=== PATIENT | male | born 1965 | race Caucasian/White ===

== ENCOUNTER 2017-07-08 04:45 | Inpatient (IN) | payer BC ==
[~2017-07-08] VITALS: Ht 182.9 cm; Wt 145.6 kg
[~2017-07-08 04:45] MED LIST: AMLODIPINE BESYL5 MG PO; ASPIRIN81 M1 PO; BYSTOLIC10 MG PO; DIOVAN80 MG PO; INVOKANA PO; LANSOPRAZOLE30 MG PO; LASIX40 MG PO; LIPITOR20 MG PO; MELOXICAM15 MG PO; METFORMIN HCL500 MG PO; TRIAMTERENE-HC1 EAC2 PO
[2017-07-08 05:23] LABS: BILIRUBIN,URINE NEGATIVE (NEGATIVE); CLARITY,URINE CLEAR (CLEAR); COLOR,URINE YELLOW (YELLOW); KETONES,URINE NEGATIVE (NEGATIVE); LEUKOCYTE ESTERASE ,URINE NEGATIVE (NEGATIVE); NITRITE,URINE NEGATIVE (NEGATIVE); PROTEIN,URINE DIPSTICK 1+ (NEGATIVE); URINE UROBILINOGEN 0.2 mg/dL (0.2 - 1)
[2017-07-08] MEDS ORDERED: SODIUM CHLORIDE 0.9% 1000ML 1,000 ML IV STA (05:36)
[2017-07-08] MEDS ORDERED: HYDROMORPHONE 1MG/1ML INJ IV STA (05:36)
[2017-07-08] MEDS ORDERED: KETOROLAC TROMETHAMINE 30 MG/ML VIAL IV STA (05:36)
[2017-07-08] MEDS ORDERED: ONDANSETRON HCL INJ 2 MG/ML VIAL IV STA (05:36)
[2017-07-08 05:43] LABS: BACTERIA,URINE RARE /HPF; EPITHELIAL CELLS,URINE RARE /LPF; RBC,URINE 21-50 /HPF (0-5)
--- NOTE | 2017-07-08 05:48 | Diagnostic Imaging Report ---
EXAM: CT ABDOMEN AND PELVIS without IV CONTRAST INDICATION: Abdominal pain, left flank pain COMPARISON: CT of the abdomen and pelvis without IV contrast January 2009 TECHNIQUE: The abdomen and pelvis were scanned using a multidetector helical scanner. Coronal and sagittal reformations were obtained. Renal stone protocol performed. IV Contrast: None Oral Contrast: None CTDIvol has been reviewed. It is below the limits set by the Radiation Protocol Committee (RPC). FINDINGS: LOWER THORAX: No consolidations LIVER: No masses BILIARY: Cholecystectomy. No ductal dilation. SPLEEN: No masses PANCREAS: No masses ADRENALS: No nodules RIGHT KIDNEY: There are 4 stones throughout the right kidney, the largest is in the inferior pole measuring 8 mm. No hydronephrosis. No ureteral stones. LEFT KIDNEY: There is a 9 mm left proximal ureteral stone at the L3/L4 level resulting in moderate hydroureteronephrosis and significant perinephric fat stranding. Multiple stones in the inferior pole measuring up to 1.5 cm in conglomerate. GI TRACT: No wall thickening or obstruction. VESSELS: Unremarkable PERITONEUM/RETROPERITONEUM: No free air or fluid LYMPH NODES: No lymphadenopathy REPRODUCTIVE ORGANS: Normal BLADDER: Normal SOFT TISSUES: Normal BONES: Advanced degenerative disc L3/L4. IMPRESSION: There is a 9 mm stone in the proximal left ureter resulting in moderate hydroureteronephrosis and marked perinephric fat stranding. Bilateral nephrolithiasis, decreased on the right and increased on the left compared to 2008. Signed by: Dr. Lexy Cooney M.D. on 07/08/2017 5:45 AM
[2017-07-08 06:33] LABS: BASOPHILS % 0.3 % (0.0-1.0); EOSINOPHILS # (AUTO) 0.2 (0.0-0.4); HEMATOCRIT 41.5 % (38.2-49.6); HEMOGLOBIN 13.7 g/dL (14.0-18.0); LYMPHOCYTES # (AUTO) 1.4 (1.0-3.2); LYMPHOCYTES % 15.4 % (18.0-39.1); MEAN CORPUSCULAR HEMOGLOBIN 27.8 pg (28-32); MEAN CORPUSCULAR VOLUME 84.3 fL (81-99); MONOCYTES % 10.9 % (4.4-11.3); NEUTROPHILS # (AUTO) 6.4 (2.1-6.9); NEUTROPHILS % 71.1 % (38.7-80.0); PLATELET COUNT 219 x10e3/uL (140-360); RED BLOOD COUNT 4.92 x10e6/uL (4.3-5.7); RED CELL DISTRIBUTION WIDTH 14.9 % (11.7-14.4)
[2017-07-08] MEDS ORDERED: ONDANSETRON HCL 4 MG ORAL DISINTEGRATING TAB ONE (06:36)
[2017-07-08 06:44] LABS: INR 1.07; PROTHROMBIN TIME 13.1 seconds (11.9-14.5)
[2017-07-08 06:45] LABS: PARTIAL THROMBOPLASTIN TIME 31.3 seconds (23.8-35.5)
[2017-07-08] MEDS ORDERED: PROMETHAZINE 25MG/ NS 50ML (IV) IV ONE (06:45)
[2017-07-08] MEDS ORDERED: ONDANSETRON HCL 4 MG ORAL DISINTEGRATING TAB PO STA (06:47)
[2017-07-08 06:56] LABS: ALBUMIN 3.8 g/dL (3.5-5.0); ALBUMIN/GLOBULIN RATIO 1.1 (0.8-2.0); ANION GAP 14.7 mmol/L (8-16); CALCIUM 9.5 mg/dL (8.4-10.2); CREATININE, SERUM 1.36 mg/dL (0.72-1.25); POTASSIUM 3.7 mmol/L (3.5-5.1)
[2017-07-08] MEDS ORDERED: ONDANSETRON HCL INJ 2 MG/ML VIAL IV PRN (07:00)
[2017-07-08] MEDS ORDERED: DAPAGLIFLOZIN PO (07:17)
[2017-07-08] MEDS ORDERED: PANTOPRAZOLE SO40 MG PO (07:17)
--- OUTSIDE RECORDS SUMMARY | 2017-07-08 07:23 | XMS REPORT ---
Author Author [facility] Address Unknown Phone Unavailable Care Team Providers Care Commercial Sales Director Name Role Phone TRE SALAS Unavailable Unavailable Problems This patient has no known problems. Allergies, Adverse Reactions, Alerts This patient has no known allergies or adverse reactions. Medications This patient has no known medications. Results Test Description Test Time Test Comments Text Results Atomic Results Result Comments CT ABDOMEN/PELVIS WO [place] [address] Patient Name: ZAYNAB FLORES MR #: [id number] : 1965 Age/Sex: 52/M Req #: [id number] Adm Physician: Ordered by: TRE SALAS MD Report #: [id number] Location: ER Room/Bed: Procedure: 0501- 0001 CT/CT ABDOMEN/PELVIS WO Exam Date: Exam Time: REPORT STATUS: Signed EXAM: CT ABDOMEN AND PELVIS without IV CONTRAST INDICATION: Abdominal pain, left flank pain COMPARISON: CT of the abdomen and pelvis without IV contrast January 2009 TECHNIQUE: The abdomen and pelvis were scanned using a multidetector helical scanner. Coronal and sagittal reformations were obtained. Renal stone protocol performed. IV Contrast: None Oral Contrast: None CTDIvol has been reviewed. It is below the limits set by the Radiation Protocol Committee (RPC) . FINDINGS: LOWER THORAX: No consolidations LIVER: No masses BILIARY: Cholecystectomy. No ductal dilation. SPLEEN: No masses PANCREAS : No masses ADRENALS: No nodules RIGHT KIDNEY: There are 4 stones throughout the right kidney, the largest is in the inferior pole measuring 8 mm. No hydronephrosis. No ureteral stones. LEFT KIDNEY: There is a 9 mm left proximal ureteral stone at the L3/L4 level resulting in moderate hydroureteronephrosis and significant perinephric fat stranding. Multiple stones in the inferior pole measuring up to 1.5 cm in conglomerate. GI TRACT: No wall thickening or obstruction. VESSELS: Unremarkable PERITONEUM/RETROPERITONEUM: No free air or fluid LYMPH NODES: No lymphadenopathy REPRODUCTIVE ORGANS: Normal BLADDER: Normal SOFT TISSUES: Normal BONES: Advanced degenerative disc L3/L4. IMPRESSION: There is a 9 mm stone in the proximal left ureter resulting in moderate hydroureteronephrosis and marked perinephric fat stranding. Bilateral nephrolithiasis, decreased on the right and increased on the left compared to 2009. Signed by: Dr. Brissa Hart M.D. on 07/08/2017 5:45 AM Dictated By: BRISSA HART MD [id number] COPY TO: TRE SALAS MD
[2017-07-08] MEDS: SODIUM CHLORIDE 0.9% 1000ML 1,000 ML IV SCH ×3 (07:45→19:41)
--- NOTE | 2017-07-08 08:33 | Consultation ---
DATE OF CONSULTATION: July 08, 2017 UROLOGY CONSULTATION Consultation was called by the emergency room. CHIEF COMPLAINT/REASON FOR CONSULTATION: Stones. HISTORY OF PRESENT ILLNESS: Juanjose Salmeron is a 52-year-old male who was in his usual state of health until 1 day prior to admission when he began experiencing acute onset of sharp left-sided flank pain. It was severe. It was acute in onset, 10/10. It did not radiate. It is not exacerbated nor relieved by anything. He denied dysuria. He denied gross hematuria. He states this is exactly the same as his numerous previous kidney stones. PAST MEDICAL HISTORY: The patient has had an extensive long kidney stone history. Has last urologist seen was Dr. Lorenzo Nicolas At [facility] approximately 6-7 years ago where he had to undergo stent placement, ureteroscopy, laser lithotripsies, as well as shock wave lithotripsy. PAST SURGICAL HISTORY: Also notable for cholecystectomy, obesity, hypertension. MEDICATIONS: Please see MAR. ALLERGIES: NKDA. SOCIAL HISTORY: Denied smoking or drinking. FAMILY HISTORY: Denied urologic stones or malignancies. REVIEW OF SYSTEMS: Noncontributory for all 12 systems. PHYSICAL EXAMINATION GENERAL: Mr. Salmeron is a pleasant male currently in no acute distress. VITALS: Currently, he is afebrile with stable vital signs. HEENT: Sclerae are anicteric. NECK: Supple. BACK: Without costovertebral angle tenderness. ABDOMEN: Soft. It is obese. It is nondistended. No palpable mass. No palpable hernias. No palpable inguinal lymphadenopathy. : Normal external male genitalia. EXTREMITIES: Without edema in the lower extremities. PSYCH: Appropriate mood. SKIN: Intact. Normal color. PERTINENT LABORATORY DATA: CT scan revealing multiple stones in the right kidney, largest 8 mm. Multiple stones in the left kidney. Total cluster 1.5 cm. There is a 9 mm proximal left ureteral calculus with proximal hydronephrosis. Hemoglobin 13.7, hematocrit 41, platelet count 219,000, and white blood cell count 9000. Sodium 139, potassium 3.7, chloride 105, bicarb 27, BUN 24, creatinine 1.36, glucose 163. Urinalysis with 21-50 reds and 6-10 whites. IMPRESSION 1. Bilateral renal calculi. 2. Large left ureteral calculi. 3. Left hydronephrosis. 4. Acute versus chronic renal failure. 5. Likely diabetes. 6. Question of urinary tract infection. 7. Microscopic hematuria. 8. Renal colic. PLAN: The patient has been begun on broad-spectrum antibiotics. We will perform this as long as the patient remains afebrile. Will employ a very brief trial of passage. The patient will need stenting with outpatient followup in a staged fashion of at least 4 procedures for his multiple bilateral stones. Job#: [id number] RI
[2017-07-08 10:45] VITALS: BP 137/71
[2017-07-08 11:52] VITALS: BP 137/71
[2017-07-08] MEDS ORDERED: MECLIZINE HCL12.5 MG PO (12:08)
[2017-07-08] MEDS: LEVOFLOXACIN 500MG/D5W 100ML 100 ML IV SCH (12:34)
[2017-07-08 12:35] VITALS: BP 137/71
[2017-07-08] MEDS: HYDROMORPHONE 1MG/1ML INJ IV PRN ×2 (13:52→19:41)
[2017-07-08 17:29] VITALS: BP 140/88
[2017-07-08] MEDS: ONDANSETRON HCL 4 MG ORAL DISINTEGRATING TAB PO PRN (19:41)
[2017-07-08 20:00] VITALS: BP 157/84
[2017-07-08 21:15] VITALS: BP 157/84
[2017-07-08] MEDS ORDERED: MECLIZINE HCL 12.5 MG TAB PO PRN (21:15)
--- NOTE | 2017-07-08 21:32 | Consultation ---
DATE OF CONSULTATION: No dictation, length 00:08. Job#: [id number] BENTLEY
--- NOTE | 2017-07-08 21:44 | History and Physical ---
CHIEF COMPLAINT: Abdominal pain. HISTORY OF PRESENT ILLNESS: Mr. Salmeron is a 52-year-old male, who presented to the emergency room with abdominal pain for 1 day. Patient has previous history of kidney stones and this felt like the same pain. It was sharp on the left flank. It was severe and started early in the morning and progressed. It was not radiating. He was not able to get relief, so he came to the emergency room. He denies any hematuria and denies any dysuria. He denies any chest pain, nausea, vomiting, diarrhea or focal weakness. REVIEW OF SYSTEMS GENERAL: Denies any fever or chills. HEAD: Denies any head trauma. ENT: Denies any earache. CVS: Denies any chest pain. RESPIRATORY: Shortness of breath. GI: Denies any nausea or vomiting. Rest of the review of systems is as in HPI. PAST MEDICAL HISTORY: History of kidney stones in the past, had ureteroscopy, lithotripsy and stent placement in the past; borderline diabetes; Meniere's disease. PAST SURGICAL HISTORY: Total knee replacement bilaterally, cholecystectomy, hernia repair, C6-C7 fixation. FAMILY AND SOCIAL HISTORY: He does not smoke, does not drink. 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 Lives with his . PHYSICAL EXAM VITAL SIGNS: Temperature 96.8, pulse of 74, blood pressure 140/80, respiratory rate of 18, O2 sat 98%. HEENT: Head atraumatic, normocephalic. Pupils reactive. NECK: Supple. CHEST: Clear to auscultation bilaterally. No wheezing. HEART: S1, S2 audible. ABDOMEN: Soft, nontender, nondistended. Bowel sounds audible. No hepatosplenomegaly. EXTREMITIES: No clubbing, cyanosis or edema. NEUROLOGIC: Awake and alert. LABS: Sodium 139, potassium 3.7, BUN 24, creatinine 1.36. White count of 9000, hemoglobin 13, platelets 219,000. ASSESSMENT/PLAN: Mr. Salmeron is a 52-year-old male who presented with flank pain. Patient underwent computed tomography of the abdomen and pelvis in the emergency room which showed 9-mm stone in the proximal left ureter. CURRENT PROBLEMS 1. Nephrolithiasis. 2. Borderline diabetes. 3. Morbid obesity. 4. History of multiple kidney stones in the past. PLAN 1. Urology consult has been called. Dr. Quigley is evaluating the patient. 2. IV Levaquin. 3. IV Dilaudid for pain control. 4. Continue IV hydration for now. Job#: [id number] BENTLEY
[2017-07-09] VITALS (7 sets, daily range): BP systolic 143–173; BP diastolic 67–91
[2017-07-09] MEDS: SODIUM CHLORIDE 0.9% 1000ML 1,000 ML IV SCH ×3 (04:00→21:00)
[2017-07-09 06:38] LABS: BASOPHILS % 0.1 % (0.0-1.0); EOSINOPHILS # (AUTO) 0.2 (0.0-0.4); EOSINOPHILS % 2.3 % (0.0-6.0); HEMATOCRIT 38.4 % (38.2-49.6); HEMOGLOBIN 12.5 g/dL (14.0-18.0); LYMPHOCYTES # (AUTO) 0.9 (1.0-3.2); LYMPHOCYTES % 11.8 % (18.0-39.1); MEAN CORPUSCULAR HEMOGLOBIN 27.7 pg (28-32); MEAN CORPUSCULAR HGB CONC 32.6 g/dL (31-35); MEAN CORPUSCULAR VOLUME 85.1 fL (81-99); MONOCYTES # (AUTO) 0.9 (0.2-0.8); NEUTROPHILS # (AUTO) 5.5 (2.1-6.9); NEUTROPHILS % 73.5 % (38.7-80.0); PLATELET COUNT 192 x10e3/uL (140-360); RED BLOOD COUNT 4.51 x10e6/uL (4.3-5.7)
[2017-07-09 07:14] LABS: ALBUMIN 3.3 g/dL (3.5-5.0); ALBUMIN/GLOBULIN RATIO 1.1 (0.8-2.0); ANION GAP 12.7 mmol/L (8-16); CALCIUM 8.5 mg/dL (8.4-10.2); CREATININE, SERUM 1.46 mg/dL (0.72-1.25); POTASSIUM 3.7 mmol/L (3.5-5.1)
[2017-07-09] MEDS: NEBIVOLOL 10 MG TAB PO SCH (08:28)
[2017-07-09] MEDS: PANTOPRAZOLE SOD 40 MG TABEC PO SCH (08:28)
[2017-07-09] MEDS: AMLODIPINE BESYLATE 5 MG TAB PO SCH (08:28)
[2017-07-09] MEDS: LEVOFLOXACIN 500MG/D5W 100ML 100 ML IV SCH (11:30)
--- NOTE | 2017-07-09 17:24 | Diagnostic Imaging Report ---
PROCEDURE:X-RAY ABDOMEN - KUB COMPARISON:[facility], CT, CT ABDOMEN AND PELVIS WITHOUT CONTRAST, 01/19/2009, 15:21. INDICATIONS:KIDNEY STONES FINDINGS: Bowel gas pattern: Unremarkable. There are mildly distended small bowel loops measuring up to 3.4 cm in diameter. No dilated large bowel. No pneumatosis. Calcifications: At least 3 calcifications over the right renal shadow measure up to 8 mm. Cluster calcifications in the lower pole of the left kidney measure up to 8 mm. A potential calcification over the left psoas measures 10 mm. Surgical clips in the posterior right pelvis are stable. No calcifications in the pelvis. Bones: Levoscoliosis of the lumbar spine is similar with superimposed degenerative changes. CONCLUSION: Bilateral intrarenal calculi. A calculus in the left ureter cannot be excluded. Dictated by: Dharmesh Holt M.D. on 07/09/2017 at 17:25 Electronically approved by: Dharmesh Holt M.D. on 07/09/2017 at 17:25
[2017-07-09] MEDS: ACETAMINOPHEN 325 MG TAB PO PRN (18:12)
[2017-07-09] MEDS: ONDANSETRON HCL 4 MG ORAL DISINTEGRATING TAB PO PRN (18:12)
[2017-07-09] MEDS ORDERED: HYDROMORPHONE 1MG/1ML INJ IV PRN (20:30)
[2017-07-09] MEDS ORDERED: METFORMIN HCL 500 MG TAB PO SCH (21:00)
[2017-07-09] MEDS ORDERED: ATORVASTATIN 20 MG TAB PO SCH (21:00)
[2017-07-09] MEDS ORDERED: HYDROMORPHONE 2MG/ML INJ IV PRN (21:00)
[2017-07-10] VITALS: BP 161/73
[2017-07-10 04:00] VITALS: BP 147/67
[2017-07-10] MEDS ORDERED: IOPAMIDOL 610MG/1ML 300 MG/ML VIAL IV ONE (06:22)
[2017-07-10 08:20] VITALS: BP 162/77
[2017-07-10] MEDS: PANTOPRAZOLE SOD 40 MG TABEC PO SCH (08:20)
[2017-07-10] MEDS: NEBIVOLOL 10 MG TAB PO SCH (08:20)
[2017-07-10] MEDS: AMLODIPINE BESYLATE 5 MG TAB PO SCH (08:20)
[2017-07-10] MEDS: ACETAMINOPHEN 325 MG TAB PO PRN (08:20)
[2017-07-10 08:24] VITALS: BP 162/77
--- NOTE | 2017-07-10 08:32 | Operative Report ---
DATE OF PROCEDURE: July 10, 2017 PREOPERATIVE DIAGNOSES 1. Left hydronephrosis. 2. Urinary tract infections. 3. Microscopic hematuria. POSTOPERATIVE DIAGNOSES 1. Left hydronephrosis. 2. Urinary tract infections. 3. Microscopic hematuria. PROCEDURES 1. Cystourethroscopy with insertion of left indwelling ureteral stent (entirely separate procedure for the diagnosis of hydronephrosis). 2. Cystourethroscopy with right ureteral catheterization and right retrograde pyelogram (separate procedure for the microscopic hematuria). 3. Supervision of fluoroscopy. 4. Interpretation of retrograde ureteropyelography. ANESTHESIA: General. ESTIMATED BLOOD LOSS: Minimal. COMPLICATIONS: None. INDICATIONS: Mr. Salmeron is a very pleasant 52-year-old male with a history of a very large obstructing proximal left ureteral stone. He has failed a trial of passage. He and I had a long discussion about alternatives, risks and benefits including doing nothing, shock wave lithotripsy, which cannot be performed today currently during the infection, stent placement, and nephrostomy. He voiced understanding of the options, alternatives, risks, and benefits and elected to proceed with a stent. He voiced explicit understanding that the stent is a temporary indwelling device, and it must be removed. Failure to do so could lead to encrustation, infection, inflammation, loss of the kidney, and even . He elects to proceed. PROCEDURE IN DETAIL: After informed consent was obtained, the patient was taken to the operating room and placed on the operating table and underwent general anesthesia by the department of anesthesia. He was prepped and draped in the standard fashion for cystoscopy. A 22.5-Albanian cystoscope was inserted per urethra. It was noted to pass normal. No tumors. No stones. Both ureteral orifices were within normal anatomic location and position. Bilateral retrograde pyelograms were performed with a 5-Albanian open-ended catheter. The right was normal. The left revealed a very large approximately 9 x 9 mm proximal ureteral calculus with proximal hydronephrosis. With a moderate degree of difficulty, a guidewire was inserted proximal to this. A ureteral stent was deployed with the coil in the renal pelvis and a coil in the bladder. The patient's bladder was drained. He was awakened from anesthesia and transported to the recovery room in excellent condition. SUPERVISION OF FLUOROSCOPY, INTERPRETATION OF RETROGRADE URETERAL PYELOGRAPHY: I was present throughout the entire procedure and I supervised the use of fluoroscopy as no radiologist was present. Attention was turned toward the left and right ureteral orifices, catheterized with a 5-Albanian open-ended catheter. Retrograde pyelogram was performed revealing on the right a delicate ureter and delicate pelviceal systems. On the left, a 9 x 9 mm proximal filling defect with multiple stones in the kidney and bowel gas. IMPRESSION 1. Normal right retrograde pyelogram. 2. Left proximal ureteral calculi, 9 x 9 mm. 3. Multiple left renal calculi, stent in good position. Job#: [id number] RI cc:KARTHIKEYAN TAYLOR DO
[2017-07-10] MEDS: SODIUM CHLORIDE 0.9% 1000ML 1,000 ML IV SCH (09:11)
--- NOTE | 2017-07-10 10:56 | Discharge Summary ---
FINAL DIAGNOSES 1. Nephrolithiasis and left hydronephrosis, status post cystourethroscopy and insertion of indwelling ureteral stent. 2. Morbid obesity. 3. Borderline diabetes. 4. Hypertension. 5. Meniere disease. ADMISSION HISTORY AND HOSPITAL COURSE: Mr. Salmeron is a 52-year-old male who presented with 1-day history of abdominal pain. He was found to have nephrolithiasis and hydronephrosis. Urology was consulted. The patient underwent cystourethroscopy and stent placement. The patient will be discharged home if okay with urology. DISCHARGE MEDICATIONS: List reviewed. GISELA CARABALLO MD Job#: [id number]
[2017-07-10] MEDS ORDERED: LEVAQUIN500 MG PO (11:19)
[2017-07-10] MEDS ORDERED: FENTANYL CITRATE/PF 100MCG/2 ML INJ ONE (18:38)
[2017-07-10] MEDS ORDERED: MIDAZOLAM HCL 2 MG/2 ML VIAL ONE (18:38)
[2017-07-10] MEDS ORDERED: DEXAMETHASONE SOD PHOS INJ 4 MG/ML VIAL ONE (19:25)
[2017-07-10] MEDS ORDERED: ONDANSETRON HCL INJ 2 MG/ML VIAL ONE (19:25)
[2017-07-10] MEDS ORDERED: SEVOFLURANE INHAL SOLN 250 ML PEN BTL ONE (19:25)
[2017-07-10] MEDS ORDERED: LIDOCAINE HCL 2% LOCAL INJ 5 ML SDV VIAL INJ ONE (19:25)
[2017-07-10] MEDS ORDERED: PROPOFOL IV EMULSION 10 MG/ML 20 ML VIAL ONE (19:25)
== END 2017-07-10 12:02 | disposition home or self-care (01) | DRG 660 ==
LOC: ER 04:45 → ERHOLD 07:19 → IMCU 10:24 → OBSVTOIN 07-09 12:16 → MED/SURG 07-09 17:56
PROVIDERS: ADMIT Internal Medicine; ATTEND Internal Medicine
PROC: 0T768ZZ Dilation of Right Ureter, Via Natural or Artificial Opening Endoscopic (ICD-10-PCS; 2017-07-10)
PROC: BT141ZZ Fluoroscopy of Kidneys, Ureters and Bladder using Low Osmolar Contrast (ICD-10-PCS; 2017-07-10)
PROC: 0T778DZ Dilation of Left Ureter with Intraluminal Device, Via Natural or Artificial Opening Endoscopic (ICD-10-PCS; principal; 2017-07-10 07:00)
DX: N13.6 Pyonephrosis (principal); Z68.41 Body mass index [BMI] 40.0-44.9, adult; N20.2 Calculus of kidney with calculus of ureter; E66.01 Morbid (severe) obesity due to excess calories; E11.9 Type 2 diabetes mellitus without complications; N23 Unspecified renal colic; Z87.442 Personal history of urinary calculi; N17.9 Acute kidney failure, unspecified; N39.0 Urinary tract infection, site not specified; R31.29 Other microscopic hematuria; D64.9 Anemia, unspecified
CPT/HCPCS: 36415; 74018; 74176; 74420; 80053; 81001; 82150; 82948; 83690; 85025; 85610; 85730; 99284; G0378; J1100; J1170; J1885; J1956; J2001; J2250; J2405; J7030

== ENCOUNTER → 2017-09-02 | Day surgery (SDC) | payer BC ==
[2017-09-01 10:26] LABS: ANION GAP 12.2 mmol/L (8-16); BLOOD UREA NITROGEN 20 mg/dL (7-26); BUN/CREATININE RATIO 19 (6-25); CALCIUM 9.9 mg/dL (8.4-10.2); CARBON DIOXIDE 27 mmol/L (22-29); CHLORIDE 104 mmol/L (98-107); CREATININE, SERUM 1.08 mg/dL (0.72-1.25); EST GLOMERULAR FILTRATION RATE > 60 ML/MIN (60-); GLUCOSE 150 mg/dL (74-118); POTASSIUM 4.2 mmol/L (3.5-5.1); SODIUM 139 mmol/L (136-145)
[~2017-09-02] MED LIST changes: +DAPAGLIFLOZIN PO; +DEXAMETHASONE SOD PHOS INJ 4 MG/ML VIAL ONE; +FENTANYL CITRATE/PF 100MCG/2 ML INJ ONE; +IOPAMIDOL 610MG/1ML 300 MG/ML VIAL IV ONE; +LEVAQUIN500 MG PO; +LEVOFLOXACIN 500MG/D5W 100ML 100 ML IV ONE; +LIDOCAINE HCL 2% LOCAL INJ 5 ML SDV VIAL INJ ONE; +MECLIZINE HCL12.5 MG PO; +MIDAZOLAM HCL 2 MG/2 ML VIAL ONE; +ONDANSETRON HCL INJ 2 MG/ML VIAL ONE; +PANTOPRAZOLE SO40 MG PO; +PROPOFOL IV EMULSION 10 MG/ML 20 ML VIAL ONE; +SEVOFLURANE INHAL SOLN 250 ML PEN BTL ONE
--- NOTE | 2017-09-02 06:40 | Diagnostic Imaging Report ---
EXAM: ABDOMEN-1VIEW (KUB) DATE: 09/02/2017 6:05 AM Time stamp on exam: 0604 exam INDICATION: Renal stones COMPARISON: July 09, 2017 FINDINGS: LINES/TUBES: Interval placement of double-J ureteral stent along the left ureter BOWEL PATTERN: No evidence for obstruction. SOFT TISSUES: Cholecystectomy clips are present. Multiple bilateral nephrolithiasis overlying the interpolar and inferior renal collecting system of the right kidney measuring, the largest 1 cm in largest dimension Multiple calcific densities overlying the inferior left renal shadow overlying the inferior renal collecting system, the largest measuring 9 mm in diameter. There are at least 2 calcific densities abutting the double-J ureteral stent, the largest measuring 1.8 cm in longest dimension LUNG BASES: Not included BONES: No acute findings. IMPRESSION: 1. Bilateral nephrolithiasis. 2. There are at least 2 stones in the distribution of the proximal left ureter abutting the double-J ureteral stent. Signed by: Dr. Satinder Penny M.D. on 09/02/2017 6:36 AM
--- NOTE | 2017-09-02 10:16 | Operative Report ---
DATE OF PROCEDURE: September 02, 2017 PREOPERATIVE DIAGNOSES 1. Left ureteral calculus. 2. Left ureteral stent. POSTOPERATIVE DIAGNOSES 1. Left ureteral calculus. 2. Left ureteral stent. PROCEDURES 1. Cystourethroscopy with complicated removal of left ureteral stent (entirely separate procedure secondary to encrustation of the stent). 2. Staged left-sided shock-wave lithotripsy (entirely separate procedure to rid the patient of a left proximal ureteral calculus). 3. Supervision of fluoroscopy. ANESTHESIA: General. ESTIMATED BLOOD LOSS: Minimal. COMPLICATIONS: None. INDICATIONS: Mr. Salmeron is a 52-year-old male patient. We had a long discussion regarding the alternatives, risks and benefits, including doing nothing, shock-wave lithotripsy, ureteroscopy, percutaneous surgery or open surgery. Due to his morbid obesity, he elected to proceed with a noninvasive approach. He voiced an understanding of the options, the alternatives, and the risks and benefits, and he elected to proceed. PROCEDURE IN DETAIL: After informed consent was obtained, the patient was taken to the operative suite and placed supine on the operating table. He underwent general anesthesia by the anesthesia service. He was placed in the dorsal lithotomy position. He was sterilely prepped and draped in the standard fashion for cystoscopy. A 22.5-Yakut cystoscope was inserted per urethra. A normal urethra was noted. Panendoscopy of the bladder revealed no tumors and no stones. Both ureteral orifices were in their normal location and position. The left had a stent encrusted seen extruding. This was grasped and removed. Of note, a small bladder calculi was seen. Attention was turned to the stone, which was abutted with a 5-Yakut, open-ended catheter. The stone was localized in the X-Y-Z planes. A total of 2500 shocks were delivered to the stone with progressive intensity in the standard fashion with the Dornier machine. Good fragmentation was seen. Retrograde pyelogram revealed no obstruction. At this time, bladder was drained. The patient was awakened from anesthesia and transported to the recovery room in excellent condition. SUPERVISION OF FLUOROSCOPY: I was present throughout the entire procedure and supervised the fluoroscopy for stent removal. Job#: [id number]
== END | disposition home or self-care (01) ==
LOC: OR 05:10
PROVIDERS: ATTEND Urology
DX: N20.1 Calculus of ureter (principal); Z46.6 Encounter for fitting and adjustment of urinary device; N21.0 Calculus in bladder; N39.0 Urinary tract infection, site not specified; N13.30 Unspecified hydronephrosis; E11.9 Type 2 diabetes mellitus without complications; G47.33 Obstructive sleep apnea (adult) (pediatric); I10 Essential (primary) hypertension; E66.01 Morbid (severe) obesity due to excess calories; Z88.0 Allergy status to penicillin; Z79.82 Long term (current) use of aspirin; Z79.84 Long term (current) use of oral hypoglycemic drugs; Z68.43 Body mass index [BMI] 50.0-59.9, adult; Z80.42 Family history of malignant neoplasm of prostate; Z84.1 Family history of disorders of kidney and ureter
CPT/HCPCS: 36415 ×2; 50590; 52315; 74018; 80048; 82948; 93005; J1100; J1956; J2001; J2250; J2405; Q9967

== ENCOUNTER → 2017-09-26 | Outpatient (CLI) | payer BC ==
[~2017-09-26] MED LIST changes: -DEXAMETHASONE SOD PHOS INJ 4 MG/ML VIAL ONE; -FENTANYL CITRATE/PF 100MCG/2 ML INJ ONE; -IOPAMIDOL 610MG/1ML 300 MG/ML VIAL IV ONE; -LEVOFLOXACIN 500MG/D5W 100ML 100 ML IV ONE; -LIDOCAINE HCL 2% LOCAL INJ 5 ML SDV VIAL INJ ONE; -MIDAZOLAM HCL 2 MG/2 ML VIAL ONE; -ONDANSETRON HCL INJ 2 MG/ML VIAL ONE; -PROPOFOL IV EMULSION 10 MG/ML 20 ML VIAL ONE; -SEVOFLURANE INHAL SOLN 250 ML PEN BTL ONE
--- NOTE | 2017-09-26 12:26 | Diagnostic Imaging Report ---
PROCEDURE:X-RAY ABDOMEN - KUB COMPARISON:09/02/2017 INDICATIONS:RENAL STONES FOLLOW UP FINDINGS: One view of the abdomen (AP supine). The left double-J nephroureteral stent has been removed. There is a questionable 7 mm calcification projected over the left distal ureter 6 mm calcification projected over the inferior pole of the left kidney. 9 mm calcification projects over the inferior pole the right kidney. There are no dilated loops of bowel to suggest obstruction. there are no masses. There is no evidence of free air. No acute osseous abnormalities are present. CONCLUSION: The left double-J nephroureteral stent has been removed. There is a questionable residual calcification projected over the left distal ureter. This could be confirmed with noncontrast CT of the abdomen and pelvis. Bilateral renal stones, otherwise unchanged. Dictated by: Jose Rose M.D. on 09/26/2017 at 12:30 Electronically approved by: Jose Rose M.D. on 09/26/2017 at 12:30
== END ==
LOC: RAD 11:59
PROVIDERS: ATTEND Urology
DX: N20.0 Calculus of kidney (principal)
CPT/HCPCS: 74018

== ENCOUNTER → 2018-01-06 | Day surgery (SDC) | payer BC ==
[2018-01-05 10:17] LABS: ANION GAP 13.6 mmol/L (8-16); CALCIUM 9.5 mg/dL (8.4-10.2); CARBON DIOXIDE 24 mmol/L (22-29); CHLORIDE 107 mmol/L (98-107); CREATININE, SERUM 1.04 mg/dL (0.72-1.25); EST GLOMERULAR FILTRATION RATE > 60 ML/MIN (60-); GLUCOSE 154 mg/dL (74-118); POTASSIUM 3.6 mmol/L (3.5-5.1); SODIUM 141 mmol/L (136-145)
[2018-01-05 10:33] LABS: BLOOD UREA NITROGEN 18 mg/dL (7-26); BUN/CREATININE RATIO 17 (6-25)
[~2018-01-06] MED LIST changes: +BYSTOLIC20 MG; +CEFTRIAXONE SOD 1 GM VIAL ONE; +DEXAMETHASONE SOD PHOS INJ 4 MG/ML VIAL ONE; +EXFORGE 5-3201 EACH; +FARXIGA; +FENTANYL CITRATE/PF 100MCG/2 ML INJ ONE; +GLUCOSAMINE &1 EAC1; +LIDOCAINE HCL 2% LOCAL INJ 5 ML SDV VIAL INJ ONE; +MIDAZOLAM HCL 2 MG/2 ML VIAL ONE; +ONDANSETRON HCL INJ 2 MG/ML VIAL ONE; +PROPOFOL IV EMULSION 10 MG/ML 20 ML VIAL ONE; +SCOPOLAMINE 1.5 MG PATCH ONE; +SEVOFLURANE INHAL SOLN 250 ML PEN BTL ONE; +SUPER B COMPLE150 MG
[2018-01-06 08:15] VITALS: BP 154/92
--- NOTE | 2018-01-06 09:06 | Diagnostic Imaging Report ---
Exam: KUB History: Stones Comparison: 09/26/2017 Findings: There are multiple stones overlying both kidneys. Largest measures approximately 12 mm over the lower pole of the right kidney. Single clip in the pelvis is noted. Degenerative changes of the spine is most pronounced at L3-L4. Impression: Bilateral renal lithiasis. Signed by: Dr. Jez Foster DO on 01/06/2018 9:03 AM
--- NOTE | 2018-01-06 11:20 | Operative Report ---
DATE OF PROCEDURE: January 06, 2018 PREOPERATIVE DIAGNOSIS: Right kidney stone. POSTOPERATIVE DIAGNOSIS: Right kidney stone. PROCEDURES 1. Staged right-sided shock wave lithotripsy. 2. Supervision of fluoroscopy. ANESTHESIA: General. ESTIMATED BLOOD LOSS: Minimal. COMPLICATIONS: None. INDICATIONS: Mr. Salmeron is a very pleasant 52-year-old male with a history of symptomatic right-sided kidney stones. He and I had a long discussion about alternatives, risks and benefits, including doing nothing, shock wave lithotripsy, ureteroscopy, percutaneous surgery and open surgery. He voiced understanding of the options, alternatives, risks, and benefits and elected to proceed. PROCEDURE IN DETAIL: After informed consent was obtained, the patient was taken to the operative suite, placed supine and underwent general anesthesia by the anesthesia service. The stone was then localized in the X, Y and Z planes. A total of 3000 shocks at a maximum power setting of 6 were delivered to the stone. Details of treatment per treatment report. The patient tolerated the procedure well and was transported to the recovery room in excellent condition with no untoward events noted. SUPERVISION OF FLUOROSCOPY: I was present throughout the entire procedure and I supervised the use of fluoroscopy for treatment. There was no radiologist present. Job#: [id number] LEONARDO MAYERS
== END | disposition home or self-care (01) ==
LOC: OR 05:04
PROVIDERS: ATTEND Urology
DX: N13.2 Hydronephrosis with renal and ureteral calculous obstruction (principal); N39.0 Urinary tract infection, site not specified; N40.1 Benign prostatic hyperplasia with lower urinary tract symptoms; N13.8 Other obstructive and reflux uropathy; I10 Essential (primary) hypertension; E11.9 Type 2 diabetes mellitus without complications; Z79.84 Long term (current) use of oral hypoglycemic drugs; Z01.810 Encounter for preprocedural cardiovascular examination; Z01.812 Encounter for preprocedural laboratory examination; Z01.818 Encounter for other preprocedural examination; K21.9 Gastro-esophageal reflux disease without esophagitis; E78.5 Hyperlipidemia, unspecified; E66.01 Morbid (severe) obesity due to excess calories; Z68.43 Body mass index [BMI] 50.0-59.9, adult; Z79.82 Long term (current) use of aspirin; Z88.0 Allergy status to penicillin
CPT/HCPCS: 36415 ×2; 50590; 74018; 80048; 82948; 93005; J0696; J1100; J2001; J2250; J2405; J2704

== ENCOUNTER 2018-07-24 00:25 | Emergency (ER) | payer BC ==
[~2018-07-24] VITALS: Ht 210.8 cm; Wt 145.6 kg
[~2018-07-24 00:25] MED LIST changes: -CEFTRIAXONE SOD 1 GM VIAL ONE; -DEXAMETHASONE SOD PHOS INJ 4 MG/ML VIAL ONE; -FENTANYL CITRATE/PF 100MCG/2 ML INJ ONE; -LIDOCAINE HCL 2% LOCAL INJ 5 ML SDV VIAL INJ ONE; -MIDAZOLAM HCL 2 MG/2 ML VIAL ONE; -ONDANSETRON HCL INJ 2 MG/ML VIAL ONE; -PROPOFOL IV EMULSION 10 MG/ML 20 ML VIAL ONE; -SCOPOLAMINE 1.5 MG PATCH ONE; -SEVOFLURANE INHAL SOLN 250 ML PEN BTL ONE
--- OUTSIDE RECORDS SUMMARY | 2018-07-24 00:29 | XMS REPORT | Summary of Care ---
Author Author [facility] Address Unknown Phone Unavailable Encounter [facility](FIN) [id number] Date(s): 05/07/18 - 06/05/18 [facility] Discharge Disposition: Home or Self Care Attending Physician: Oswald Wyatt Vital Signs No data available for this section Problem List Condition Effective Dates Status Health Status Informant Acid Active reflux(Confirmed) Back Resolved pain(Confirmed)1 Chest Resolved pain(Confirmed)2 Diabetes Active mellitus(Confirmed) Foot Active swelling(Confirmed) GERD - Active Gastro-esophageal reflux disease(Confirmed) HTN - Active Hypertension(Confirm ed) osteoarthritis(Confi Active rmed) Obese(Confirmed) Active Poor peripheral Resolved circulation(Confirme d)3 Renal Resolved stone(Confirmed) Retained ureteral Resolved stent(Confirmed)4 Sleep Active apnea(Confirmed)5 1lumbar Dx as acid reflux 3swelling to LE 4left 5uses CPAP Allergies, Adverse Reactions, Alerts Substance Reaction Severity Status penicillins Active Medications No data available for this section Results No data available for this section Immunizations No data available for this section Procedures Procedure Date Related Diagnosis Body Site Status Shoulder joint operations2010 Completed TKR -Total prosthetic replacement of knee 2007 Completed joint using cement Ablation Completed Arthroplasty of knee Completed Cardiac catheterization Completed Cholecystectomy Completed Fusion of joint of cervical spine with Completed internal fixation by anterior approach2 Lithotripsy Completed Stent placement Completed Stent placement Completed 1SLAP tear 2bone graft & metal plate Social History Social History Type Response Substance Abuse Use: None. Alcohol Never Smoking Status Never smoker; Exposure to Tobacco Smoke None; Cigarette Smoking Last 365 Days No; Reg Smoking Cessation Counseling No entered on: 03/13/18 Assessment and Plan No data available for this section
--- OUTSIDE RECORDS SUMMARY | 2018-07-24 00:29 | XMS REPORT | Summary of Care ---
Author Author [facility] Address Unknown Phone Unavailable Encounter [facility](FIN) [id number] Date(s): 04/07/18 - 05/06/18 [facility] Discharge Disposition: Home or Self Care Attending [...]
--- OUTSIDE RECORDS SUMMARY | 2018-07-24 00:29 | XMS REPORT | CCD ---
Author Author Auto Generated Organization [facility] Address Unknown Phone Unavailable Care Team Providers Care Network Systems Analyst Name Role Phone Baldev Nicolas [facility] RP Allergies, Adverse Reactions, Alerts Substance Reaction Status penicillins Active Problem List Condition Effective Dates Status Acid reflux Active Back pain1 Active Chest pain2 Resolved Foot swelling Active GERD - Gastro-esophageal reflux disease Active HTN - Hypertension Active Obese Active Poor peripheral circulation3 Resolved Renal stone Active Retained ureteral stent4 Active Sleep apnea5 Active 1lumbar Dx as acid reflux 3swelling to LE 4left 5uses CPAP Medications Medication Instructions Start Date End Date Status Lactated Ringers 1,000 mL, Rate: 50 ml/hr, Infuse 12/11/2012 12/11/2012 Discontinued Injection IV 1000 mL over: 20 hr, Route: IV, Dosing Weight 193.182 kg, Total Volume: 1,000, Start date: 12/11/12 13:42:00, Duration: 30 day, Stop date: 01/10/13 13:41:00 acetaminophen-hydroc 1 tab, Route: PO, Dosing Weight 12/11/2012 12/11/2012 Discontinued odone 325 mg-5 mg 193.182, kg, Q4H, PRN Pain Score oral tablet 1-3, Start date: 12/11/12 13:42:00, Duration: 30 day, Stop date: 01/10/13 13:41:00 acetaminophen-hydroc 2 tab, Route: PO, Dosing Weight 12/11/2012 12/11/2012 Discontinued odone 325 mg-5 mg 193.182, kg, Q4H, PRN Pain Score oral tablet 4-6, Start date: 12/11/12 13:42:00, Duration: 30 day, Stop date: 01/10/13 13:41:00 naloxone 0.04 mg, Route: IVP, Q2MIN, Dosing 12/11/2012 12/11/2012 Discontinued Weight 193.182, kg, PRN Narcotic Reversal, Start date: 12/11/12 13:42:00, Duration: 8 doses or times, Stop date: Limited # of times ondansetron 4 mg, Route: IVP, ONCE, Dosing 12/11/2012 12/11/2012 Discontinued Weight 193.182, kg, PRN Nausea & Vomiting, Start date: 12/11/12 13:42:00 hydromorphone 0.5 mg, Route: IVP, Q5Min, Dosing 12/11/2012 12/11/2012 Discontinued Weight 193.182, kg, PRN Pain Score 7-10, Start date: 12/11/12 13:42:00, Duration: 5 doses or times, Stop date: Limited # of times fentanyl 25 microgram, Route: IVP, Q5Min, 12/11/2012 12/11/2012 Completed Dosing Weight 193.182, kg, PRN Pain Score 4-6, Start date: 12/11/12 13:42:00, Duration: 4 doses or times, Stop date: Limited # of times flumazenil 0.2 mg, Route: IVP, PRN, Dosing 12/11/2012 12/11/2012 Discontinued Weight 193.182, kg, PRN Benzodiazepine Reversal, Initial dose, Start date: 12/11/12 13:42:00, Duration: 30 day, Stop date: 01/10/13 12:41:00 Lactated Ringers 1,000 mL, Rate: 25 ml/hr, Infuse 12/11/2012 12/11/2012 Discontinued Injection IV 1000 mL over: 40 hr, Route: IV, Dosing Weight 193.182 kg, Total Volume: 1,000, Start date: 12/11/12 11:27:00, Duration: 30 day, Stop date: 01/10/13 11:26:00 ketorolac 15 mg, 1 mL, Route: IVP, Drug form: 12/11/2012 12/11/2012 Discontinued INJ, Q6H, Dosing Weight 193.182, kg, Start date: 12/11/12 18:00:00, Duration: 6 doses or times, Stop date: 12/13/12 0:00:00 morphine Sulfate 2 mg, 1 mL, Route: IVP, Drug form: 12/11/2012 12/11/2012 Discontinued INJ, Q3H, Dosing Weight 193.182, kg, PRN Pain Score 1-3, Start date: 12/11/12 13:27:00, Duration: 30 day, Stop date: 01/10/13 13:26:00 acetaminophen-hydroc 1 tab, Route: PO, Drug Form: TAB, 12/11/2012 12/11/2012 Discontinued odone 325 mg-10 mg Dosing Weight 193.182, kg, Q4H, PRN oral tablet Pain Score 4-6, Start date: 12/11/12 13:27:00, Duration: 30 day, Stop date: 01/10/13 13:26:00 gentamicin + Sodium 120 mg, 3 mL, Route: IVPB, Drug 12/11/2012 12/11/2012 Discontinued Chloride 0.9% IV 100 form: INJ, ONCALL, Dosing Weight mL 193.182, kg, Start date: 12/11/12 13:00:00, Duration: 30 day, Stop date: 01/10/13 11:59:00 Levaquin 500 mg, 100 mL, Route: IV, Drug 12/11/2012 12/11/2012 Discontinued form: INJ, ONCALL, Dosing Weight 193.182, kg, Start date: 12/11/12 13:00:00 Vital Signs Most recent to oldest [Reference Range]: 1 2 3 Height 177.8 cm (12/09/2012 13:31:00) Temperature Oral [96.4-99.1 DegF] 98.3 DegF (12/09/2012 13:48:00) Systolic Blood Pressure [90-140 mmHg] 156 mmHg *HI* (12/11/2012 14:38:00) 150 mmHg *HI* (12/11/2012 14:15:00) 135 mmHg (12/11/2012 14:00:00) Diastolic Blood Pressure [60-90 mmHg] 55 mmHg *LOW* (12/11/2012 14:38:00) 72 mmHg (12/11/2012 14:15:00) 65 mmHg (12/11/2012 14:00:00) Respiratory Rate [14-20 BRMIN] 17 BRMIN (12/11/2012 14:15:00) 14 BRMIN (12/11/2012 14:00:00) 18 BRMIN (12/11/2012 13:45:00) Peripheral Pulse Rate [60-100 bpm] 66 bpm (12/11/2012 10:30:00) 74 bpm (12/09/2012 13:48:00) Weight 193.182 kg (12/09/2012 13:31:00) Results URINALYSIS Most recent to oldest [Reference Range]: 1 UA Turbidity [Clear] Clear (12/09/2012 13:30:00) UA Color Sharon *NA* (12/09/2012 13:30:00) UA pH [5.0-8.0] 5.0 (12/09/2012 13:30:00) UA Spec Grav [<=1.030] 1.015 (12/09/2012 13:30:00) UA Glucose [Negative mg/dL] Negative mg/dL *NA* (12/09/2012 13:30:00) UA Blood [Negative] Large *ABN* (12/09/2012 13:30:00) UA Ketones [Negative mg/dL] Negative mg/dL *NA* (12/09/2012 13:30:00) UA Protein [Negative mg/dL] Negative mg/dL (12/09/2012 13:30:00) UA Urobilinogen [0.1-1.0 mg/dL] 2.0 mg/dL *HI* (12/09/2012 13:30:00) UA Bili [Negative] Negative *NA* (12/09/2012 13:30:00) UA Leuk Est [Negative] Negative (12/09/2012 13:30:00) UA Nitrite [Negative] Positive *ABN* (12/09/2012 13:30:00) UA WBC [0-5 /HPF] 9 /HPF *HI* (12/09/2012 13:30:00) UA RBC [0-2 /HPF] >182 /HPF *HI* (12/09/2012 13:30:00) UA Sq Epi [Few /LPF] Occasional /LPF *NA* (12/09/2012 13:30:00) Microbiology Reports PROCEDURE:Culture: Urine STATUS: Auth (Verified) BODY SITE: COLLECTED DATE/TIME: 12/09/2012 13:30:00 SOURCE: Urine, Clean Catch FREE TEXT SOURCE: FINAL REPORTS Final Report No Growth PRELIMINARY REPORTS Preliminary Report No Growth; Holding Procedures Procedures Date Related Diagnosis Cystourethroscopy, with insertion of indwelling ureteral 12/11/2012 00:00:00 stent (eg, [place] or double-J type) Cystourethroscopy, with ureteroscopy and/or pyeloscopy; with 12/11/2012 00:00:00 removal or manipulation of calculus (ureteral catheterization is included) Stent placement Transurethral Removal of Obstruction from Ureter and Renal 12/11/2012 00:00:00 Pelvis Ureteral Catheterization 12/11/2012 00:00:00
--- OUTSIDE RECORDS SUMMARY | 2018-07-24 00:29 | XMS REPORT | Continuity of Care Document ---
Author Author Jyoti herman [facility] Interface Address Unknown Phone Unavailable Problems Problem Status Onset Date Classification Date Reported Comments Source UNK Active 03/04/2018 [facility] RT SHOULDER Active 10/08/2017 [facility] [place] 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 H Active 05/31/2015 [facility] ICD NOT GIVEN / CPT 94610 22685 [id number] Active 12/04/2012 [facility] STONE 592.0 592.1/CPT 71357 89098 Active 12/03/2012 [facility] Acid reflux Active Problem 12/18/2012 [facility] Back pain<sup>1</sup> Active Problem 12/18/2012 1lumbar [facility] Chest pain<sup>2</sup> Resolved Problem 12/18/2012 27/13 Dx as acid reflux [facility] Foot swelling Active Problem 12/18/2012 [facility] GERD - Gastro-esophageal reflux disease Active Problem 12/18/2012 [facility] HTN - Hypertension Active Problem 12/18/2012 [facility] Obese Active Problem 12/18/2012 [facility] Poor peripheral circulation<sup>3</sup> Resolved Problem 12/18/2012 3swelling to LE [facility] Renal stone Active Problem 12/18/2012 [facility] Retained ureteral stent<sup>4</sup> Active Problem 12/18/2012 4left [facility] Sleep apnea<sup>5</sup> Active Problem 12/18/2012 5uses CPAP [facility] Sleep apnea<sup>4</sup> Active Problem 12/06/2012 4uses CPAP [facility] Acid reflux Active Problem 06/07/2018 [facility] [place] Back pain<sup>1</sup> Resolved Problem 06/07/2018 lumbar [facility] [place] Chest pain<sup>2</sup> Resolved Problem 06/07/2018 7/13 Dx as acid reflux [facility] [place] Diabetes mellitus Active Problem 06/07/2018 [facility] [place] Foot swelling Active Problem 06/07/2018 [facility] [place], SARAH [place] GERD - Gastro-esophageal reflux disease Active Problem 06/07/2018 [facility] [place] [place] HTN - Hypertension Active Problem 06/07/2018 [facility] [place],[facility] [place] osteoarthritis Active Problem 06/07/2018 [facility] [place] Obese Active Problem 06/07/2018 [facility] [place], SARAH [place] Poor peripheral circulation<sup>3</sup> Resolved Problem 06/07/2018 swelling to LE [facility] [place],[facility] [place] Renal stone Resolved Problem 06/07/2018 [facility] [place],[facility] [place] Retained ureteral stent<sup>4</sup> Resolved Problem 06/07/2018 left [facility] [place],[facility] [place] Sleep apnea<sup>5</sup> Active Problem 06/07/2018 uses CPAP [facility] [place],[facility] [place] Kidney stone Active Problem 07/10/2017 [facility] Medications Medication Details Route Status Patient Instructions Ordering Provider Order Date Source Invokana , 300 Mg Oral Daily Active 07/08/2017 [facility] Lansoprazole 30 Mg Capsule.dr, 30 Mg Oral Daily Active 07/08/2017 [facility] Valsartan (Diovan) 80 Mg Tab, 320 Mg Oral Daily Active 07/08/2017 [facility] Furosemide (Lasix) 40 Mg Tablet, 40 Mg Oral Daily as needed Active 07/06/2015 [facility] ketorolac 15 mg, 1 mL, Route: IVP, Drug form: INJ, Q6H, Dosing Weight 193.182, kg, Start date: 12/11/12 18:00:00, Duration: 6 doses or times, Stop date: 12/13/12 0:00:00 IVP No Longer Active [facility] 12/11/2012 [facility] Lactated Ringers Injection IV 1000 mL 1,000 mL, Rate: 50 ml/hr, Infuse over: 20 hr, Route: IV, Dosing Weight 193.182 kg, Total Volume: 1,000, Start date: 12/11/12 13:42:00, Duration: 30 day, Stop date: 01/10/13 13:41:00 IV No Longer Active [facility] 12/11/2012 [facility] acetaminophen-hydrocodone 325 mg-5 mg oral tablet 1 tab, Route: PO, Dosing Weight 193.182, kg, Q4H, PRN Pain Score 1-3, Start date: 12/11/12 13:42:00, Duration: 30 day, Stop date: 01/10/13 13:41:00 PO No Longer Active [facility] 12/11/2012 [facility] naloxone 0.04 mg, Route: IVP, Q2MIN, Dosing Weight 193.182, kg, PRN Narcotic Reversal, Start date: 12/11/12 13:42:00, Duration: 8 doses or times, Stop date: Limited # of times IVP No Longer Active [facility] 12/11/2012 [facility] ondansetron 4 mg, Route: IVP, ONCE, Dosing Weight 193.182, kg, PRN Nausea & Vomiting, Start date: 12/11/12 13:42:00 IVP No Longer Active [facility] 12/11/2012 [facility] hydromorphone 0.5 mg, Route: IVP, Q5Min, Dosing Weight 193.182, kg, PRN Pain Score 7-10, Start date: 12/11/12 13:42:00, Duration: 5 doses or times, Stop date: Limited # of times IVP No Longer Active [facility] 12/11/2012 [facility] fentanyl 25 microgram, Route: IVP, Q5Min, Dosing Weight 193.182, kg, PRN Pain Score 4-6, Start date: 12/11/12 13:42:00, Duration: 4 doses or times, Stop date: Limited # of times IVP No Longer Active [place] 12/11/2012 [facility] flumazenil 0.2 mg, Route: IVP, PRN, Dosing Weight 193.182, kg, PRN Benzodiazepine Reversal, Initial dose, Start date: 12/11/12 13:42:00, Duration: 30 day, Stop date: 01/10/13 12:41:00 IVP No Longer Active [facility] 12/11/2012 [facility] morphine Sulfate 2 mg, 1 mL, Route: IVP, Drug form: INJ, Q3H, Dosing Weight 193.182, kg, PRN Pain Score 1-3, Start date: 12/11/12 13:27:00, Duration: 30 day, Stop date: 01/10/13 13:26:00 IVP No Longer Active [facility] 12/11/2012 [facility] acetaminophen-hydrocodone 325 mg-10 mg oral tablet 1 tab, Route: PO, Drug Form: TAB, Dosing Weight 193.182, kg, Q4H, PRN Pain Score 4-6, Start date: 12/11/12 13:27:00, Duration: 30 day, Stop date: 01/10/13 13:26:00 PO No Longer Active [facility] 12/11/2012 [facility] gentamicin + Sodium Chloride 0.9% IV 100 mL 120 mg, 3 mL, Route: IVPB, Drug form: INJ, ONCALL, Dosing Weight 193.182, kg, Start date: 12/11/12 13:00:00, Duration: 30 day, Stop date: 01/10/13 11:59:00 IVPB No Longer Active [facility] 12/11/2012 [facility] Levaquin 500 mg, 100 mL, Route: IV, Drug form: INJ, ONCALL, Dosing Weight 193.182, kg, Start date: 12/11/12 13:00:00 IV No Longer Active [facility] 12/11/2012 [facility] Lactated Ringers Injection IV 1000 mL 1,000 mL, Rate: 25 ml/hr, Infuse over: 40 hr, Route: IV, Dosing Weight 193.182 kg, Total Volume: 1,000, Start date: 12/11/12 11:27:00, Duration: 30 day, Stop date: 01/10/13 11:26:00 IV No Longer Active [facility] 12/11/2012 [facility] labetalol 5 mg, Route: IVP, Q5Min, Dosing Weight 193.182, kg, PRN Elevated BP, Start date: 12/04/12 13:04:00, Duration: 5 doses or times, Stop date: Limited # of times IVP No Longer Active [facility] 12/04/2012 [facility] esmolol IV Push 10 mg, Route: IVP, Q5Min, Dosing Weight 193.182, kg, PRN Elevated BP, Start date: 12/04/12 13:04:00, Duration: 5 doses or times, Stop date: Limited # of times IVP No Longer Active [facility] 12/04/2012 [facility] hydrALAZINE 5 mg, Route: IVP, Q5Min, Dosing Weight 193.182, kg, PRN Elevated BP, Start date: 12/04/12 13:04:00, Duration: 4 doses or times, Stop date: Limited # of times IVP No Longer Active [place] 12/04/2012 [facility] acetaminophen-hydrocodone 325 mg-5 mg oral tablet 1 tab, Route: PO, Dosing Weight 193.182, kg, Q4H, PRN Pain Score 1-3, Start date: 12/04/12 13:04:00, Duration: 30 day, Stop date: 01/03/13 13:03:00 PO No Longer Active [place] 12/04/2012 [facility] hydromorphone 0.5 mg, Route: IVP, Q5Min, Dosing Weight 193.182, kg, PRN Pain Score 7-10, Start date: 12/04/12 13:04:00, Duration: 5 doses or times, Stop date: Limited # of times IVP No Longer Active [place] 12/04/2012 [facility] ketorolac 30 mg, Route: IVP, ONCE, Dosing Weight 193.182, kg, Start date: 12/04/12 13:04:00, Duration: 1 doses or times, Stop date: 12/04/12 13:04:00 IVP Active [place] 12/04/2012 [facility] naloxone 0.04 mg, Route: IVP, Q2MIN, Dosing Weight 193.182, kg, PRN Narcotic Reversal, Start date: 12/04/12 13:04:00, Duration: 8 doses or times, Stop date: Limited # of times IVP No Longer Active [place] 12/04/2012 [facility] dexamethasone 4 mg, Route: IVP, ONCE, Dosing Weight 193.182, kg, PRN Nausea & Vomiting, Start date: 12/04/12 13:04:00 IVP No Longer Active [place] 12/04/2012 [facility] ondansetron 4 mg, Route: IVP, ONCE, Dosing Weight 193.182, kg, PRN Nausea & Vomiting, Start date: 12/04/12 13:04:00 IVP No Longer Active [place] 12/04/2012 [facility] flumazenil 0.2 mg, Route: IVP, PRN, Dosing Weight 193.182, kg, PRN Benzodiazepine Reversal, Initial dose, Start date: 12/04/12 13:04:00, Duration: 30 day, Stop date: 01/03/13 13:03:00 IVP No Longer Active [facility] 12/04/2012 [facility] morphine Sulfate 2 mg, Route: IVP, Q3H, Dosing Weight 193.182, kg, PRN Pain Score 1-3, Start date: 12/04/12 12:57:00, Duration: 30 day, Stop date: 01/03/13 12:56:00 IVP No Longer Active [facility] 12/04/2012 [facility] acetaminophen-hydrocodone 325 mg-10 mg oral tablet 1 tab, Route: PO, Dosing Weight 193.182, kg, Q4H, PRN Pain Score 4-6, Start date: 12/04/12 12:57:00, Duration: 30 day, Stop date: 01/03/13 12:56:00 PO No Longer Active [facility] 12/04/2012 [facility] gentamicin 120 mg, Route: IVPB, ONCE, Dosing Weight 193.182, kg, Start date: 12/04/12 11:27:00, Stop date: 12/04/12 11:27:00 IVPB No Longer Active [facility] 12/04/2012 [facility] Levaquin 500 mg, Route: IVPB, ONCE, Dosing Weight 193.182, kg, Start date: 12/04/12 11:27:00, Stop date: 12/04/12 11:27:00 IVPB No Longer Active [facility] 12/04/2012 [facility] Lactated Ringers Injection IV 1000 mL 1,000 mL, Rate: 25 ml/hr, Infuse over: 40 hr, Route: IV, Dosing Weight 193.182 kg, Total Volume: 1,000, Start date: 12/04/12 11:05:00, Duration: 30 day, Stop date: 01/03/13 11:04:00 IV No Longer Active [place] 12/04/2012 [facility] tamsulosin 0.4 mg oral capsule 0.4 mg, 1 cap, PO, Daily, 30 cap, Substitution Allowed, CAP PO Active 12/04/2012 [facility] Zofran 4 mg oral tablet PO, PRN, Substitution Allowed PO Active 12/04/2012 [facility] Cipro PO, Q12H, Substitution Allowed PO Active 12/04/2012 [facility] Aspirin Low Dose 81 mg oral tablet PO, Daily, Substitution Allowed PO Active 12/04/2012 [facility] meloxicam 15 mg oral tablet 15 mg, 1 tab, PO, Daily, 30 tab, Substitution Allowed, TAB PO Active 12/04/2012 [facility] hydrochlorothiazide-triamterene 25 mg-37.5 mg oral capsule 1 cap, PO, Daily, 30 cap, Substitution Allowed, Maintenance, CAP PO Active 12/04/2012 [facility] amLODipine 5 mg oral tablet 5 mg, 1 tab, PO, Daily, 30 tab, Substitution Allowed, TAB PO Active 12/04/2012 [facility] Bystolic 10 mg oral tablet 10 mg, 1 tab, PO, Daily, 30 tab, Substitution Allowed, TAB PO Active 12/04/2012 [facility] atorvastatin 20 mg oral tablet 20 mg, 1 tab, PO, Daily, 30 tab, Substitution Allowed, TAB PO Active 12/04/2012 [facility] Diovan 320 mg oral tablet 320 mg, 1 tab, PO, Daily, 90 tab, Substitution Allowed, TAB PO Active 12/04/2012 [facility] lansoprazole 30 mg oral delayed release capsule 30 mg, 1 cap, PO, Daily, 30 cap, Substitution Allowed PO Active 12/04/2012 [facility] Amlodipine Besylate 5 Mg Tablet Daily Active [facility] Aspirin 81 Mg Tablet Daily Active [facility] Atorvastatin Calcium (Lipitor) 20 Mg Tablet Bedtime Active [facility] Dapagliflozin Daily Active [facility] Levofloxacin (Levaquin) 500 Mg Tablet Daily Active [facility] Meclizine Hcl 12.5 Mg Tablet Three Times A Day as needed for Dizziness Active [facility] Meloxicam 15 Mg Tablet Daily Active [facility] Metformin Hcl 500 Mg Tablet Bedtime Active [facility] Nebivolol Hcl (Bystolic) 10 Mg Tablet Daily Active [facility] Pantoprazole Sodium (Protonix) 40 Mg Tablet.dr Daily Active [facility] Triamterene/Hydrochlorothiazid (Triamterene-Hctz 37.5-25 Mg Cp) 1 Each Capsule Daily Active [facility] Allergies, Adverse Reactions, Alerts Substance Category Reaction Severity Reaction type Status Date Reported Comments Source Penicillin RASH Mild Allergy to Substance Active 04/09/2012 [facility] penicillins Assertion Drug allergy Active [facility] [place] Immunizations Immunization Date Given Site Status Last Updated Comments Source Results Order Name Results Value Reference Range Date Interpretation Comments Source Shoulder w contrast MRI Shoulder w contrast MRI EXAM: MR ARTHROGRAM RIGHT SHOULDER DATE: 02/12/2018 10:01 AM 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 Please see the corresponding report for further details. Axial, oblique coronal, and oblique sagittal MR images of the shoulder. IV contrast: None. FINDINGS: ROTATOR CUFF AND ASSOCIATED STRUCTURES Rotator cuff: 1. There is a near full-thickness bursal tear of the supraspinatus tendon extending into the infraspinatus tendon measuring 2.4 x 2.4 cm (anterior-posterior by transverse on series 601, image 16 and series 801, image 30). 2. Interstitial delaminating injury of the remaining posterior portions of the intraspinous tendon extends to the myotendinous junction. 3. Fluid within the subscapularis tendon presumably related to injection. 4. Teres minor tendon is unremarkable. Bursa: There is fluid within the subacromial/subdeltoid bursa from recent contrast injection, compatible with full-thickness rotator cuff tear. Musculature: There is no muscular tear, contusion, or atrophy. Acromioclavicular joint: Partial acromial resection. OSSEOUS STRUCTURES Minimal edema within the distal right clavicle. LONG BICIPITAL TENDON 1. There is thickening and increased intrasubstance signal of the intra-articular portion of the long head of the biceps tendon. 2. Extra-articular biceps tenosynovitis. GLENOHUMERAL JOINT Joint fluid: Joint fluid related to recent injection. Mild degree of synovitis. Cartilage and Bone: Small focal areas of greater than 50% volume loss of cartilage within the central and superior humeral head. Labrum: 1. There is fraying of the anterior/superior labrum. 2. Minimally displaced chronic tear throughout the posterior labrum. 3. Mild posterior positioning of the humeral head. Other support structures: No capsular or ligamentous abnormality is seen. OTHER FINDINGS: No visualized axillary lymphadenopathy. IMPRESSION: 1. Near full-thickness bursal tear with focal full-thickness perforations of the supraspinatus tendon extending into the infraspinatus tendon measuring 2.4 x 2.4 cm (AP by transverse). 2. Interstitial delaminating injury of the remaining posterior portions of the intraspinous tendon extending to the myotendinous junction. 3. Tenosynovitis and tendinosis involving the long head of the biceps tendon. 4. Degenerative type labral tear. 02/12/2018 - - This report was dictated by a Industrial Electrical Engineer/Fellow/Physician Director Surgical. I have personally reviewed the images as well as the interpretation and agree with the findings. 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 Appropriate time out procedures were performed. The skin was prepped and draped in the usual fashion under aseptic precautions. 1% lidocaine was utilized for local anesthesia. Under fluoroscopic guidance a 22 gauge long spinal needle was used to access the shoulder joint. 30 mL of Omnipaque 240 was injected under fluoroscopic guidance to confirm intra- articular needle placement. 6 mL of a mixture of 0.1 mL Dotarem with 10 mL of saline, and 4 mL of 0.2% ropivacaine were drawn into a 10 mL syringe. 10 mL of this mixture was injected into the shoulder joint. No immediate complications. Preprocedure pain score: 5/10 Postprocedure pain score: 5/10 FLUORO TIME: 00:10 minutes DAP: 5.06 mGy-cm2 Dr. Martino, attending radiologist, was present for the procedure ledezma components. FINDINGS: A normal shoulder joint was outlined. IMPRESSION: Technically successful fluoroscopy-guided right shoulder injection for MR arthrogram. 02/12/2018 - - This report was dictated by a Industrial Electrical Engineer/Fellow/Physician Director Surgical. I have personally reviewed the images as well as the interpretation and agree with the findings. Read by: Nhan Benton MD Resident/Fellow/Physician Director Surgical: Nhan Benton MD Dictated Date/time: 02/12/18 11:39 Electronically Signed by: Edwin Martino MD 02/12/18 12:18 FINAL REPORT [facility] Capillary blood glucose measurement by glucometer (mass/volume) Capillary blood glucose measurement by glucometer (mass/volume) 172 70 - 120 07/10/2017 [facility] Automated blood basophil count (count/volume) Automated blood basophil count (count/volume) 0.0 0.0 - 0.1 07/09/2017 [facility] Automated blood basophil count as percentage of total leukocytes Automated blood basophil count as percentage of total leukocytes 0.1 0.0 - 1.0 07/09/2017 [facility] Automated blood eosinophil count Automated blood eosinophil count 0.2 0.0 - 0.4 07/09/2017 [facility] Automated blood eosinophil count as percentage of total leukocytes Automated blood eosinophil count as percentage of total leukocytes 2.3 0.0 - 6.0 07/09/2017 [facility] Automated blood hematocrit (volume fraction) Automated blood hematocrit (volume fraction) 38.4 38.2 - 49.6 07/09/2017 [facility] Automated blood lymphocyte count as percentage ot total leukocytes Automated blood lymphocyte count as percentage ot total leukocytes 11.8 18.0 - 39.1 07/09/2017 [facility] Automated blood monocyte count as percentage of total leukocytes Automated blood monocyte count as percentage of total leukocytes 12.0 4.4 - 11.3 07/09/2017 [facility] Automated blood neutrophil count Automated blood neutrophil count 5.5 2.1 - 6.9 07/09/2017 [facility] Automated blood platelet count (count/volume) Automated blood platelet count (count/volume) 192 140 - 360 07/09/2017 [facility] Automated blood segmented neutrophil count as percentage of total leukocytes Automated blood segmented neutrophil count as percentage of total leukocytes 73.5 38.7 - 80.0 07/09/2017 [facility] Automated erythrocyte mean corpuscular hemoglobin (mass per erythrocyte) Automated erythrocyte mean corpuscular hemoglobin (mass per erythrocyte) 27.7 28 - 32 07/09/2017 [facility] Automated erythrocyte mean corpuscular hemoglobin concentration measurement (mass/volume) Automated erythrocyte mean corpuscular hemoglobin concentration measurement (mass/volume) 32.6 31 - 35 07/09/2017 [facility] Automated erythrocyte mean corpuscular volume Automated erythrocyte mean corpuscular volume 85.1 81 - 99 07/09/2017 [facility] Blood erythrocytes automated count (number/volume) Blood erythrocytes automated count (number/volume) 4.51 4.3 - 5.7 07/09/2017 [facility] Blood hemoglobin measurement (moles/volume) Blood hemoglobin measurement (moles/volume) 12.5 14.0 - 18.0 07/09/2017 [facility] Blood leukocytes automated count (number/volume) Blood leukocytes automated count (number/volume) 7.47 4.8 - 10.8 07/09/2017 [facility] Blood lymphocytes count (number/volume) Blood lymphocytes count (number/volume) 0.9 1.0 - 3.2 07/09/2017 [facility] Blood monocytes automated count (number/volume) Blood monocytes automated count (number/volume) 0.9 0.2 - 0.8 07/09/2017 [facility] Estimated glomerular filtration rate (GFR) determination Estimated glomerular filtration rate (GFR) determination 50 60 07/09/2017 [facility] Glucose measurement Glucose measurement 142 74 - 118 07/09/2017 [facility] Plasma globulin measurement (mass/volume) Plasma globulin measurement (mass/volume) 3.1 2.3 - 3.5 07/09/2017 [facility] Serum or plasma alanine aminotransferase measurement (enzymatic activity/volume) Serum or plasma alanine aminotransferase measurement (enzymatic activity/volume) 23 0 - 55 07/09/2017 [facility] Serum or plasma albumin measurement (mass/volume) Serum or plasma albumin measurement (mass/volume) 3.3 3.5 - 5.0 07/09/2017 [facility] Serum or plasma albumin/globulin mass ratio Serum or plasma albumin/globulin mass ratio 1.1 0.8 - 2.0 07/09/2017 [facility] Serum or plasma alkaline phosphatase measurement (enzymatic activity/volume) Serum or plasma alkaline phosphatase measurement (enzymatic activity/volume) 65 40 - 150 07/09/2017 [facility] Serum or plasma anion gap Serum or plasma anion gap 12.7 8 - 16 07/09/2017 [facility] Serum or plasma calcium measurement (mass/volume) Serum or plasma calcium measurement (mass/volume) 8.5 8.4 - 10.2 07/09/2017 [facility] Serum or plasma carbon dioxide, total measurement (moles/volume) Serum or plasma carbon dioxide, total measurement (moles/volume) 22 22 - 29 07/09/2017 [facility] Serum or plasma chloride measurement (moles/volume) Serum or plasma chloride measurement (moles/volume) 108 98 - 107 07/09/2017 [facility] Serum or plasma creatinine measurement (mass/volume) Serum or plasma creatinine measurement (mass/volume) 1.46 0.72 - 1.25 07/09/2017 [facility] Serum or plasma potassium measurement (moles/volume) Serum or plasma potassium measurement (moles/volume) 3.7 3.5 - 5.1 07/09/2017 [facility] Serum or plasma protein measurement (mass/volume) Serum or plasma protein measurement (mass/volume) 6.4 6.5 - 8.1 07/09/2017 [facility] Serum or plasma sodium measurement (moles/volume) Serum or plasma sodium measurement (moles/volume) 139 136 - 145 07/09/2017 [facility] Serum or plasma total bilirubin measurement (mass/volume) Serum or plasma total bilirubin measurement (mass/volume) 1.4 0.2 - 1.2 07/09/2017 [facility] Serum or plasma urea nitrogen measurement (mass/volume) Serum or plasma urea nitrogen measurement (mass/volume) 18 7 - 26 07/09/2017 [facility] Serum or plasma urea nitrogen/creatinine mass ratio Serum or plasma urea nitrogen/creatinine mass ratio 12 6 - 25 07/09/2017 [facility] Red Cell Distribution Width 15.0 11.7 - 14.4 07/09/2017 [facility] IM GRANULOCYTES % 0.3 0.0 - 1.0 07/09/2017 [facility] Absolute Immature Granulocyte (auto 0.02 0 - 0.1 07/09/2017 [facility] Aspartate Amino Transf (AST/SGOT) 19 5 - 34 07/09/2017 [facility] Activated partial thromboplastin time (aPTT) in platelet poor plasma bycoagulation assay Activated partial thromboplastin time (aPTT) in platelet poor plasma bycoagulation assay 31.3 23.8 - 35.5 07/08/2017 [facility] INR in Platelet poor plasma by Coagulation assay INR in Platelet poor plasma by Coagulation assay 1.07 07/08/2017 [facility] Prothrombin time (PT) in platelet poor plasma by coagulation assay Prothrombin time (PT) in platelet poor plasma by coagulation assay 13.1 11.9 - 14.5 07/08/2017 [facility] Serum or plasma amylase measurement (enzymatic activity/volume) Serum or plasma amylase measurement (enzymatic activity/volume) 29 25 - 125 07/08/2017 [facility] Serum or plasma lipase measurement (enzymatic activity/volume) Serum or plasma lipase measurement (enzymatic activity/volume) 72 8 - 78 07/08/2017 [facility] Automated urine sediment leukocyte count by microscopy (number/high power field) Automated urine sediment leukocyte count by microscopy (number/high power field) null 0 - 5 07/08/2017 [facility] Bacteria detection in urine sediment by light microscopy Bacteria detection in urine sediment by light microscopy RARE NONE 07/08/2017 [facility] Epithelial cells detection in urine sediment by light microscopy Epithelial cells detection in urine sediment by light microscopy RARE NONE 07/08/2017 [facility] Erythrocytes detection in urine sediment by light microscopy Erythrocytes detection in urine sediment by light microscopy null 0 - 5 07/08/2017 [facility] Specific gravity of Urine by Test strip Specific gravity of Urine by Test strip 1.025 1.010 - 1.025 07/08/2017 [facility] Urine clarity Urine clarity CLEAR CLEAR 07/08/2017 [facility] Urine color determination Urine color determination YELLOW YELLOW 07/08/2017 [facility] Urine erythrocytes detection Urine erythrocytes detection 2+ NEGATIVE 07/08/2017 [facility] Urine glucose detection Urine glucose detection 2+ NEGATIVE 07/08/2017 [facility] Urine ketones detection by automated test strip Urine ketones detection by automated test strip NEGATIVE NEGATIVE 07/08/2017 [facility] Urine leukocyte esterase detection by dipstick Urine leukocyte esterase detection by dipstick NEGATIVE NEGATIVE 07/08/2017 [facility] Urine nitrite detection Urine nitrite detection NEGATIVE NEGATIVE 07/08/2017 [facility] Urine pH measurement by automated test strip Urine pH measurement by automated test strip 5 5 - 7 07/08/2017 [facility] Urine protein measurement by test strip (mass/volume) Urine protein measurement by test strip (mass/volume) 1+ NEGATIVE 07/08/2017 [facility] Urine total bilirubin measurement (mass/volume) Urine total bilirubin measurement (mass/volume) NEGATIVE NEGATIVE 07/08/2017 [facility] Urine urobilinogen measurement by test strip (mass/volume) Urine urobilinogen measurement by test strip (mass/volume) 0.2 0.2 - 1 07/08/2017 [facility] Brain w/wo contrast MRI Brain w/wo contrast MRI EXAM: MRI OF THE BRAIN WITHOUT AND WITH CONTRAST DATE:06/16/2015 12:52 PM CDT . CLINICAL INDICATION: 2 month history of left-sided headache with blurry vision, history of hypertension COMPARISON: None available. TECHNIQUE : Multiplanar imaging of the brain was obtained both prior to and after uncomplicated IV administration of 15 cc Omniscan FINDINGS: There is no hemorrhage, mass lesion, extra axial collection, cerebral edema, or mass effect. Bilateral choroid plexus cysts are noted.. Diffusion sequences are normal. Brain volume is normal, and there is no focal read or white matter signal abnormality..The lateral ventricles, cortical sulci, and basal cisterns are patent. The cerebellar tonsils are above foramen magnum. The sella is normal. The vascular flow-voids are unremarkable. There is no abnormal enhancement. The globes, extraocular muscles, optic nerves, orbital vessels, and orbital fat have normal and symmetric signals. The orbital apices are patent. The paranasal sinuses and mastoids are unremarkable. IMPRESSION: 1. Small bilateral choroid plexus cysts without mass effect or evidence of CSF overproduction. This is likely a developmental finding of little clinical significance. 2. The brain is otherwise normal. 3. Normal orbits 06/16/2015 - - Read by: Cesar Pinto MD Dictated Date/time: 06/16/15 13:59 Electronically Signed by: Cesar Pinto MD 06/16/15 14:27 FINAL REPORT [facility] Christy Abdomen AP view Abdomen AP view Spot images from Cystoscopy show a left ureteral stent in good position. SL:13 12/11/2012 - - Read by: Toby Wu Dictated Date/time: 12/11/12 15:00 Electronically Signed by: Toby Wu MD 12/11/12 15:00 FINAL REPORT [facility] URINALYSIS UA Color [place] 12/09/2012 NA [facility] URINALYSIS UA RBC null 0 - 2 12/09/2012 [facility] URINALYSIS UA Sq Epi Occasional /LPF *NA* (12/09/2012 13:30:00) Few 12/09/2012 NA [facility] URINALYSIS UA WBC 9 /HPF 0 - 5 12/09/2012 HI [facility] URINALYSIS UA Turbidity Clear (12/09/2012 13:30:00) Clear 12/09/2012 Normal [facility] URINALYSIS UA Protein Negative mg/dL (12/09/2012 13:30:00) Negative 12/09/2012 Normal [facility] URINALYSIS UA pH 5.0 5.0 - 8.0 12/09/2012 Normal [facility] URINALYSIS UA Spec Grav 1.015 <=1.030 12/09/2012 Normal [facility] URINALYSIS UA Blood Large *ABN* (12/09/2012 13:30:00) Negative 12/09/2012 ABN [facility] URINALYSIS UA Urobilinogen 2.0 mg/dL 0.1 - 1.0 12/09/2012 HI [facility] URINALYSIS UA Nitrite Positive *ABN* (12/09/2012 13:30:00) Negative 12/09/2012 ABN [facility] URINALYSIS UA Leuk Est Negative (12/09/2012 13:30:00) Negative 12/09/2012 Normal [facility] URINALYSIS UA Glucose Negative mg/dL *NA* (12/09/2012 13:30:00) Negative 12/09/2012 NA [facility] URINALYSIS UA Ketones Negative mg/dL *NA* (12/09/2012 13:30:00) Negative 12/09/2012 NA [facility] URINALYSIS UA Bili Negative *NA* (12/09/2012 13:30:00) Negative 12/09/2012 NA [facility] Microbiology Culture: Urine 12/09/2012 [facility] CHEMISTRY eGFR 78 mL/min/1.73m2 12/04/2012 NA 1Result Comment: The eGFR is calculated using the CKD-EPI formula. In most young, healthy individuals the eGFR will be >90 mL/min/1.73m2. The eGFR declines with age. An eGFR of 60-89 may be normal in some populations, particularly the elderly, for whom the CKD-EPI formula has not been extensively validated. Use of the eGFR is not recommended in the following populations: Individuals with unstable creatinine concentrations, including patients and those with serious co-morbid conditions. Patients with extremes in muscle mass or diet. The data above are obtained from the National Kidney Disease Education Program (NKDEP) which additionally recommends that when the eGFR is used in patients with extremes of body mass index for purposes of drug dosing, the eGFR should be multiplied by the estimated BMI. [facility] CHEMISTRY CO2 29 meq/L 24 - 32 12/04/2012 Normal [facility] CHEMISTRY Creatinine Lvl 1.1 mg/dL 0.5 - 1.4 12/04/2012 Normal [facility] CHEMISTRY Glucose Lvl 175 mg/dL 70 - 99 12/04/2012 HI 2Interpretive Data: Adult reference range values reflect the clinical guidelines of the [place] [employer]. [facility] CHEMISTRY BUN 15 mg/dL 7 - 22 12/04/2012 Normal [facility] CHEMISTRY Calcium Lvl 8.7 mg/dL 8.5 - 10.5 12/04/2012 Normal [facility] CHEMISTRY Potassium Lvl 3.9 meq/L 3.5 - 5.1 12/04/2012 Normal [facility] CHEMISTRY Sodium Lvl 144 meq/L 135 - 145 12/04/2012 Normal [facility] CHEMISTRY Chloride Lvl 107 meq/L 95 - 109 12/04/2012 Normal [facility] CHEMISTRY AGAP 11.9 meq/L 10.0 - 20.0 12/04/2012 Normal [facility] HEMATOLOGY Hgb 11.7 g/dL 14.0 - 18.0 12/04/2012 LOW [facility] HEMATOLOGY MCV 83.6 fL 80.0 - 94.0 12/04/2012 Normal [facility] HEMATOLOGY Hct 36.1 % 42.0 - 54.0 12/04/2012 LOW [facility] HEMATOLOGY RDW 14.2 % 11.5 - 14.5 12/04/2012 Normal [facility] HEMATOLOGY Platelet 217 K/CMM 133 - 450 12/04/2012 Normal [facility] HEMATOLOGY MPV 8.7 fL 7.4 - 10.4 12/04/2012 Normal [facility] HEMATOLOGY RBC 4.32 M/CMM 4.70 - 6.10 12/04/2012 LOW [facility] HEMATOLOGY MCHC 32.3 g/dL 32.0 - 36.0 12/04/2012 Normal [facility] HEMATOLOGY MCH 27.0 pg 27.0 - 31.0 12/04/2012 Normal [facility] HEMATOLOGY WBC 7.0 K/CMM 3.7 - 10.4 12/04/2012 Normal [facility] HEMATOLOGY Segs-Bands # 5.0 K/CMM 1.5 - 8.1 12/04/2012 Normal [facility] HEMATOLOGY Basophils 0.2 % 0.0 - 1.0 12/04/2012 Normal [facility] HEMATOLOGY Eosinophils # 0.1 K/CMM 0.0 - 0.5 12/04/2012 Normal [facility] HEMATOLOGY Monocytes # 0.6 K/CMM 0.0 - 0.8 12/04/2012 Normal [facility] HEMATOLOGY Lymphocytes # 1.2 K/CMM 1.0 - 5.5 12/04/2012 Normal [facility] HEMATOLOGY Segs 72.1 % 45.0 - 75.0 12/04/2012 Normal [facility] HEMATOLOGY Eosinophils 2.1 % 0.0 - 4.0 12/04/2012 Normal [facility] HEMATOLOGY Monocytes 8.7 % 2.0 - 12.0 12/04/2012 Normal [facility] HEMATOLOGY Lymphocytes 16.9 % 20.0 - 40.0 12/04/2012 LOW [facility] HEMATOLOGY Basophils # 0.0 K/CMM 0.0 - 0.2 12/04/2012 Normal [facility] PTT 30.0 s 22.9 - 35.8 12/04/2012 Normal 4Interpretive Data: Heparin Therapeutic Range: 57 - 92 Seconds [facility] HEMATOLOGY PT 12.8 s 12.0 - 14.7 12/04/2012 Normal [facility] HEMATOLOGY INR 0.97 0.85 - 1.17 12/04/2012 Normal 3Interpretive Data: RECOMMENDED RANGES FOR PROTIME INR: 2.0-3.0 for most medical and surgical thromboembolic states. 2.5-3.5 for artificial heart valves and recurrent embolism. INR SHOULD BE USED ONLY FOR PATIENTS ON STABLE ANTICOAGULANT THERAPY. [facility] Kidney pyelogram retrograde Kidney pyelogram retrograde RETROGRADE PYELOGRAPHY COMPARISON: None IMPRESSION: Multiple fluoroscopic spot radiographs are submitted, demonstrating bilateral retrograde pyelography. Refer to the operating clinician's report for further discussion. SL: 13 12/04/2012 - - Read by: Danial Hurt Dictated Date/time: 12/04/12 13:48 Electronically Signed by: Danial Hurt MD 12/04/12 13:48 FINAL REPORT [facility] Vital Signs Vital Sign Value Date Comments Source Systolic (mm Hg) 156 12/11/2012 [facility] Diastolic (mm Hg) 55 12/11/2012 [facility] Diastolic (mm Hg) 72 12/11/2012 [facility] Systolic (mm Hg) 150 12/11/2012 [facility] Respitory Rate 17 12/11/2012 [facility] Systolic (mm Hg) 135 12/11/2012 [facility] Diastolic (mm Hg) 65 12/11/2012 [facility] Respitory Rate 14 12/11/2012 [facility] Respitory Rate 18 12/11/2012 [facility] Heart Rate 66 12/11/2012 [facility] Temperature Oral (F) 98.3 F 12/09/2012 [facility] Heart Rate 74 12/09/2012 [facility] Height 177.8 cm 12/09/2012 [facility] Weight 193.182 12/09/2012 [facility] Diastolic (mm Hg) 70 12/04/2012 [facility] Systolic (mm Hg) 144 12/04/2012 [facility] Respitory Rate 19 12/04/2012 [facility] Systolic (mm Hg) 146 12/04/2012 [facility] Diastolic (mm Hg) 75 12/04/2012 [facility] Systolic (mm Hg) 145 12/04/2012 [facility] Diastolic (mm Hg) 63 12/04/2012 [facility] Respitory Rate 16 12/04/2012 [facility] Respitory Rate 18 12/04/2012 [facility] Heart Rate 73 12/04/2012 [facility] Temperature Oral (F) 98.3 F 12/04/2012 [facility] Weight 193.182 12/04/2012 [facility] Height 177.8 cm 12/04/2012 [facility] Encounters Location Location Details Encounter Type Encounter Number Reason For Visit Attending Provider ADM Date DC Date Status Source [facility] DS [id number] [facility] 12/04/2012 12/04/2012 Active [facility] DS [id number] [facility] 12/11/2012 12/11/2012 Active [facility] [place] [facility] [id number] Baltazar Guerrero 06/16/2015 06/17/2015 [facility] [place] Discharged Inpatient [id number] GISELA CARABALLO MD 07/09/2017 07/10/2017 [facility] [place] OP Therapy Patients [id number] Oswald Wyatt 04/07/2018 05/07/2018 [facility] [place] [facility] [place] [facility] [id number] Oswald Wyatt 05/07/2018 06/06/2018 [facility] [place] Procedures Procedure Code Date Perfomer Comments Source Cystoscopy with retrograde pyelography [id number] 07/10/2017 BROOKE [facility] CT of abdomen and pelvis without contrast [id number] 07/08/2017 JOSUE [facility] Cystourethroscopy, with insertion of indwelling ureteral stent (eg, [place] or double- J type) [id number] 12/11/2012 [facility] Cystourethroscopy, with ureteroscopy and/or pyeloscopy; with removal or manipulation of calculus (ureteral catheterization is included) [id number] 12/11/2012 [facility] Transurethral Removal of Obstruction from Ureter and Renal Pelvis [id number] 12/11/2012 [facility]re[facility] Catheterization [id number] 12/11/2012 [facility] Shoulder joint operations<sup>1</sup> [id number] 03/10/2010 SLAP tear [facility] [place] 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 [id number] 03/10/2007 [facility] [place] Stent placement [id number] [facility] Ablation [id number] [facility] Cardiac catheterization [id number] [facility] Cholecystectomy [id number] [facility] 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 approach <sup>1</sup> [id number] 1bone graft & metal plate [facility] Lithotripsy [id number] [facility] Shoulder joint operations [id number] [facility] 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 [id number] [facility] Ablation [id number] [facility] [place] Cardiac catheterization [id number] [facility] [place] Cholecystectomy [id number] [facility] [place] 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 approach<sup>1</sup> [id number] bone graft & metal plate [facility] [place] Lithotripsy [id number] [facility] [place] Shoulder joint operations [id number] [facility] [place] Stent placement [id number] [facility] [place] 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 [id number] [facility] [place] Ablation [id number] [facility] [place] Arthroplasty of knee [id number] [facility] [place] Cardiac catheterization [id number] [facility] [place] Cholecystectomy [id number] [facility] [place] 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 approach<sup>2</sup> [id number] bone graft & metal plate [facility] [place] Lithotripsy [id number] [facility] [place] Stent placement [id number] [facility] [place]
--- OUTSIDE RECORDS SUMMARY | 2018-07-24 00:30 | XMS REPORT | CCD ---
Author Author Auto Generated Organization [facility] Address Unknown Phone Unavailable Care Team Providers Care Library Attendant Name Role Phone Baldev Nicolas [facility] RP Allergies, Adverse Reactions, Alerts Substance Reaction Status penicillins Active Problem List Condition Effective Dates Status Acid reflux Active Back pain1 Active Chest pain2 Resolved HTN - Hypertension Active Poor peripheral circulation3 Resolved Sleep apnea4 Active 1lumbar Dx as acid reflux 3swelling to LE 4uses CPAP Medications Medication Instructions Start Date End Date Status meloxicam 15 mg oral 15 mg, 1 tab, PO, Daily, 30 tab, 12/04/2012 Ordered tablet Substitution Allowed, TAB hydrochlorothiazide- 1 cap, PO, Daily, 30 cap, 12/04/2012 Ordered triamterene 25 Substitution Allowed, Maintenance, mg-37.5 mg oral CAP capsule labetalol 5 mg, Route: IVP, Q5Min, Dosing 12/04/2012 12/04/2012 Discontinued Weight 193.182, kg, PRN Elevated BP, Start date: 12/04/12 13:04:00, Duration: 5 doses or times, Stop date: Limited # of times esmolol IV Push 10 mg, Route: IVP, Q5Min, Dosing 12/04/2012 12/04/2012 Discontinued Weight 193.182, kg, PRN Elevated BP, Start date: 12/04/12 13:04:00, Duration: 5 doses or times, Stop date: Limited # of times hydrALAZINE 5 mg, Route: IVP, Q5Min, Dosing 12/04/2012 12/04/2012 Discontinued Weight 193.182, kg, PRN Elevated BP, Start date: 12/04/12 13:04:00, Duration: 4 doses or times, Stop date: Limited # of times acetaminophen-hydroc 1 tab, Route: PO, Dosing Weight 12/04/2012 12/04/2012 Discontinued odone 325 mg-5 mg 193.182, kg, Q4H, PRN Pain Score oral tablet 1-3, Start date: 12/04/12 13:04:00, Duration: 30 day, Stop date: 01/03/13 13:03:00 acetaminophen-hydroc 2 tab, Route: PO, Dosing Weight 12/04/2012 12/04/2012 Discontinued odone 325 mg-5 mg 193.182, kg, Q4H, PRN Pain Score oral tablet 4-6, Start date: 12/04/12 13:04:00, Duration: 30 day, Stop date: 01/03/13 13:03:00 hydromorphone 0.5 mg, Route: IVP, Q5Min, Dosing 12/04/2012 12/04/2012 Discontinued Weight 193.182, kg, PRN Pain Score 7-10, Start date: 12/04/12 13:04:00, Duration: 5 doses or times, Stop date: Limited # of times ketorolac 30 mg, Route: IVP, ONCE, Dosing 12/04/2012 12/04/2012 Ordered Weight 193.182, kg, Start date: 12/04/12 13:04:00, Duration: 1 doses or times, Stop date: 12/04/12 13:04:00 Lactated Ringers 1,000 mL, Rate: 25 ml/hr, Infuse 12/04/2012 12/04/2012 Discontinued Injection IV 1000 mL over: 40 hr, Route: IV, Dosing Weight 193.182 kg, Total Volume: 1,000, Start date: 12/04/12 11:05:00, Duration: 30 day, Stop date: 01/03/13 11:04:00 morphine Sulfate 2 mg, Route: IVP, Q3H, Dosing 12/04/2012 12/04/2012 Discontinued Weight 193.182, kg, PRN Pain Score 1-3, Start date: 12/04/12 12:57:00, Duration: 30 day, Stop date: 01/03/13 12:56:00 acetaminophen-hydroc 1 tab, Route: PO, Dosing Weight 12/04/2012 12/04/2012 Discontinued odone 325 mg-10 mg 193.182, kg, Q4H, PRN Pain Score oral tablet 4-6, Start date: 12/04/12 12:57:00, Duration: 30 day, Stop date: 01/03/13 12:56:00 amLODipine 5 mg oral 5 mg, 1 tab, PO, Daily, 30 tab, 12/04/2012 Ordered tablet Substitution Allowed, TAB Bystolic 10 mg oral 10 mg, 1 tab, PO, Daily, 30 tab, 12/04/2012 Ordered tablet Substitution Allowed, TAB atorvastatin 20 mg 20 mg, 1 tab, PO, Daily, 30 tab, 12/04/2012 Ordered oral tablet Substitution Allowed, TAB Diovan 320 mg oral 320 mg, 1 tab, PO, Daily, 90 tab, 12/04/2012 Ordered tablet Substitution Allowed, TAB tamsulosin 0.4 mg 0.4 mg, 1 cap, PO, Daily, 30 cap, 12/04/2012 Ordered oral capsule Substitution Allowed, CAP lansoprazole 30 mg 30 mg, 1 cap, PO, Daily, 30 cap, 12/04/2012 Ordered oral delayed release Substitution Allowed capsule Zofran 4 mg oral PO, PRN, Substitution Allowed 12/04/2012 Ordered tablet Cipro PO, Q12H, Substitution Allowed 12/04/2012 Ordered gentamicin 120 mg, Route: IVPB, ONCE, Dosing 12/04/2012 12/04/2012 Completed Weight 193.182, kg, Start date: 12/04/12 11:27:00, Stop date: 12/04/12 11:27:00 Levaquin 500 mg, Route: IVPB, ONCE, Dosing 12/04/2012 12/04/2012 Completed Weight 193.182, kg, Start date: 12/04/12 11:27:00, Stop date: 12/04/12 11:27:00 Aspirin Low Dose 81 PO, Daily, Substitution Allowed 12/04/2012 Ordered mg oral tablet naloxone 0.04 mg, Route: IVP, Q2MIN, Dosing 12/04/2012 12/04/2012 Discontinued Weight 193.182, kg, PRN Narcotic Reversal, Start date: 12/04/12 13:04:00, Duration: 8 doses or times, Stop date: Limited # of times dexamethasone 4 mg, Route: IVP, ONCE, Dosing 12/04/2012 12/04/2012 Discontinued Weight 193.182, kg, PRN Nausea & Vomiting, Start date: 12/04/12 13:04:00 ondansetron 4 mg, Route: IVP, ONCE, Dosing 12/04/2012 12/04/2012 Discontinued Weight 193.182, kg, PRN Nausea & Vomiting, Start date: 12/04/12 13:04:00 flumazenil 0.2 mg, Route: IVP, PRN, Dosing 12/04/2012 12/04/2012 Discontinued Weight 193.182, kg, PRN Benzodiazepine Reversal, Initial dose, Start date: 12/04/12 13:04:00, Duration: 30 day, Stop date: 01/03/13 13:03:00 Vital Signs Most recent to oldest [Reference Range]: 1 2 3 Height 177.8 cm (12/04/2012 09:48:00) Temperature Oral [96.4-99.1 DegF] 98.3 DegF (12/04/2012 09:51:00) Systolic Blood Pressure [90-140 mmHg] 144 mmHg *HI* (12/04/2012 14:00:00) 146 mmHg *HI* (12/04/2012 13:45:00) 145 mmHg *HI* (12/04/2012 13:30:00) Diastolic Blood Pressure [60-90 mmHg] 70 mmHg (12/04/2012 14:00:00) 75 mmHg (12/04/2012 13:45:00) 63 mmHg (12/04/2012 13:30:00) Respiratory Rate [14-20 BRMIN] 19 BRMIN (12/04/2012 13:45:00) 16 BRMIN (12/04/2012 13:30:00) 18 BRMIN (12/04/2012 13:15:00) Peripheral Pulse Rate [60-100 bpm] 73 bpm (12/04/2012 09:51:00) Weight 193.182 kg (12/04/2012 09:48:00) Results CHEMISTRY Most recent to oldest [Reference Range]: 1 Sodium Lvl [135-145 mEq/L] 144 mEq/L (12/04/2012 10:20:00) Potassium Lvl [3.5-5.1 mEq/L] 3.9 mEq/L (12/04/2012 10:20:00) Chloride Lvl [95-109 mEq/L] 107 mEq/L (12/04/2012 10:20:00) CO2 [24-32 mEq/L] 29 mEq/L (12/04/2012 10:20:00) AGAP [10.0-20.0 mEq/L] 11.9 mEq/L (12/04/2012 10:20:00) Creatinine Lvl [0.5-1.4 mg/dL] 1.1 mg/dL (12/04/2012 10:20:00) eGFR 78 mL/min/1.73m2 1 *NA* (12/04/2012:20:00) BUN [7-22 mg/dL] 15 mg/dL (12/04/2012:20:00) Glucose Lvl [70-99 mg/dL] 175 mg/dL 2 *HI* (12/04/2012:20:00) Calcium Lvl [8.5-10.5 mg/dL] 8.7 mg/dL (12/04/2012 10:20:00) 1Result Comment: The eGFR is calculated using [...] from the National Kidney Disease Education Program ( NKDEP) which additionally recommends that when the eGFR is used in patients with extremes of body mass index for purposes of drug dosing, the eGFR should be mul tiplied by the estimated BMI. 2Interpretive Data: Adult reference range values reflect the clinical guidelines of the [place] [employer]. HEMATOLOGY Most recent to oldest [Reference Range]: 1 WBC [3.7-10.4 K/CMM] 7.0 K/CMM (12/04/2012 10:20:00) RBC [4.70-6.10 M/CMM] 4.32 M/CMM *LOW* (12/04/2012:20:00) Hgb [14.0-18.0 g/dL] 11.7 g/dL *LOW* (12/04/2012 10:20:00) Hct [42.0-54.0 %] 36.1 % *LOW* (12/04/2012 10:20:00) MCV [80.0-94.0 fL] 83.6 fL (12/04/2012 10:20:00) MCH [27.0-31.0 pg] 27.0 pg (12/04/2012 10:20:00) MCHC [32.0-36.0 g/dL] 32.3 g/dL (12/04/2012 10:20:00) RDW [11.5-14.5 %] 14.2 % (12/04/2012 10:20:00) Platelet [133-450 K/CMM] 217 K/CMM (12/04/2012 10:20:00) MPV [7.4-10.4 fL] 8.7 fL (12/04/2012 10:20:00) Segs [45.0-75.0 %] 72.1 % (12/04/2012 10:20:00) Lymphocytes [20.0-40.0 %] 16.9 % *LOW* (12/04/2012 10:20:00) Monocytes [2.0-12.0 %] 8.7 % (12/04/2012 10:20:00) Eosinophils [0.0-4.0 %] 2.1 % (12/04/2012 10:20:00) Basophils [0.0-1.0 %] 0.2 % (12/04/2012 10:20:00) Segs-Bands # [1.5-8.1 K/CMM] 5.0 K/CMM (12/04/2012 10:20:00) Lymphocytes # [1.0-5.5 K/CMM] 1.2 K/CMM (12/04/2012 10:20:00) Monocytes # [0.0-0.8 K/CMM] 0.6 K/CMM (12/04/2012 10:20:00) Eosinophils # [0.0-0.5 K/CMM] 0.1 K/CMM (12/04/2012 10:20:00) Basophils # [0.0-0.2 K/CMM] 0.0 K/CMM (12/04/2012 10:20:00) PT [12.0-14.7 seconds] 12.8 seconds (12/04/2012 10:20:00) INR [0.85-1.17] 0.97 3 (12/04/2012 10:20:00) PTT [22.9-35.8 seconds] 30.0 seconds 4 (12/04/2012 10:20:00) 3Interpretive Data: RECOMMENDED RANGES FOR PROTIME INR: 2.0-3.0 for most medical and surgical thromboembolic states. 2.5-3.5 for artificial heart valves and recurrent embolism. INR SHOULD BE USED ONLY FOR PATIENTS ON STABLE ANTICOAGULANT THERAPY. 4Interpretive Data: Heparin Therapeutic Range: 57 - 92 Seconds Procedures Procedures Date Related Diagnosis Ablation Cardiac catheterization Cholecystectomy 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 approach 1 Lithotripsy Shoulder joint operations Stent placement 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 1bone graft & metal plate
--- OUTSIDE RECORDS SUMMARY | 2018-07-24 00:30 | XMS REPORT | Summary of Care ---
Author Author [facility] [place] Organization [facility] [place] Address Unknown Phone Unavailable Encounter HQ Hammad_lisandra(FIN) [id number] Date(s): 06/16/15 - 06/16/15 [facility] [place] [address] [place], [place] [address] [place] [phone] Discharge Disposition: Home Attending Physician: Baltazar Guerrero DO Vital Signs No data available for this section Problem List Condition Effective Dates Status Health Status Informant Acid Active reflux(Confirmed) Back Active pain(Confirmed)1 Chest Resolved pain(Confirmed)2 Foot Active swelling(Confirmed) GERD - Active Gastro-esophageal reflux disease(Confirmed) HTN - Active Hypertension(Confirm ed) Obese(Confirmed) Active Poor peripheral Resolved circulation(Confirme d)3 Renal Active stone(Confirmed) Retained ureteral Active stent(Confirmed)4 Sleep Active apnea(Confirmed)5 1lumbar / Dx as acid reflux 3swelling to LE 4left 5uses CPAP Allergies, Adverse Reactions, Alerts Substance Reaction Severity Status penicillins Active Medications No data available for this section Results No data available for this section Immunizations No data available for this section Procedures Procedure Date Related Diagnosis Body Site Ablation Cardiac catheterization Cholecystectomy 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 approach1 Lithotripsy Shoulder joint operations Stent placement Stent placement 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 1bone graft & metal plate Social History No data available for this section Assessment and Plan No data available for this section
--- OUTSIDE RECORDS SUMMARY | 2018-07-24 00:30 | XMS REPORT | CCD ---
Author Author Auto Generated Organization [facility] Address Unknown Phone Unavailable Care Team Providers Care Agency Service Representative Name Role Phone Baldev Nicolas [facility] RP Allergies, Adverse Reactions, Alerts Substance [...]
== END 2018-07-24 00:50 | disposition home or self-care (01) ==
LOC: ER 00:25
DX: Z43.6 Encounter for attention to other artificial openings of urinary tract (principal); I10 Essential (primary) hypertension; E11.9 Type 2 diabetes mellitus without complications; E78.5 Hyperlipidemia, unspecified
CPT/HCPCS: 99282

== ENCOUNTER → 2018-08-18 | Day surgery (SDC) | payer BC ==
[2018-08-13 15:35] LABS: ANION GAP 15.6 mmol/L (8-16); BLOOD UREA NITROGEN 9 mg/dL (7-26); BUN/CREATININE RATIO 9 (6-25); CALCIUM 9.7 mg/dL (8.4-10.2); CARBON DIOXIDE 25 mmol/L (22-29); CHLORIDE 103 mmol/L (98-107); CREATININE, SERUM 1.02 mg/dL (0.72-1.25); EST GLOMERULAR FILTRATION RATE > 60 ML/MIN (60-); GLUCOSE 113 mg/dL (74-118); POTASSIUM 3.6 mmol/L (3.5-5.1); SODIUM 140 mmol/L (136-145)
--- NOTE | 2018-08-13 15:46 | Diagnostic Imaging Report ---
Exam: KUB - 2 views Clinical History: Preoperative. Comparison: KUB 01/06/2018. Findings: Again noted are bilateral renal stones, largest measuring up to 1.2 cm in the right lower pole kidney and 0.9 cm in the left lower pole kidney. There is a right-sided percutaneous nephrostomy catheter. Nonobstructive bowel gas pattern. Status post cholecystectomy. Surgical clip projects over the pelvis. No acute osseous abnormality. Impression: Bilateral renal stones as above. Right sided percutaneous nephrostomy catheter. Signed by: Dr. Samantha Marsh MD on 08/13/2018 3:42 PM
[~2018-08-18] MED LIST changes: +CEFTRIAXONE SOD 1 GM/NS 50 ML 50 ML IV ONE; +CEPHALEXIN500 MG PO; +DEXAMETHASONE SOD PHOS INJ 4 MG/ML VIAL ONE; +FAMOTIDINE 20 MG/2 ML VIAL IV ONE; +HYDRALAZINE HCL 20 MG/ML VIAL ONE; +IOPAMIDOL 610MG/1ML 300 MG/ML VIAL IV ONE; +LABETALOL HCL 20 ML ONE; +LEVEMIR100 UNIT/1 SQ; +LIDOCAINE HCL 2% LOCAL INJ 5 ML SDV VIAL INJ ONE; +MIDAZOLAM HCL 2 MG/2 ML VIAL ONE; +MORPHINE SULFATE INJ 4 MG/ML INJ 1ML ONE; +ONDANSETRON HCL INJ 2MG/ML 2ML 2 MG/ML VIAL ONE; +PROPOFOL IV EMULSION 10 MG/ML 20 ML VIAL ONE; +SCOPOLAMINE 1.5 MG PATCH ONE; +SEVOFLURANE INHAL SOLN 250 ML PEN BTL ONE
[2018-08-18 09:57] VITALS: BP 165/81
--- NOTE | 2018-08-19 15:35 | Operative Report ---
DATE OF PROCEDURE: 08/18/2018 SURGEON: Louis Quigley MD PREOPERATIVE DIAGNOSES: 1. Right ureteral calculi. 2. Right nephrostomy. 3. Right hydronephrosis. POSTOPERATIVE DIAGNOSES: 1. Right ureteral calculi. 2. Right nephrostomy. 3. Right hydronephrosis. PROCEDURES: 1. Right nephrostogram. 2. Supervision of fluoroscopy. 3. Staged right-sided shock lithotripsy (entirely separate procedure for right renal calculi). ANESTHESIA: General. ESTIMATED BLOOD LOSS: Minimal. COMPLICATIONS: None. INDICATIONS FOR PROCEDURE: Mr. Salmeron is a 53-year-old male, who presented to an outside hospital with obstruction, sepsis requiring an emergent nephrostomy placement. He now presents for definitive management of this ureteral calculi. The patient has undergone lithotripsy before with good success and elects to proceed. PROCEDURE IN DETAIL: After informed consent was obtained, the patient was taken to the operative suite, placed supine on the operating table, underwent general anesthesia by the Anesthesia Service, placed in the supine position. Due to his super morbid obesity, it was required to use the Dornier machine. An attempt was made to localize the proximal ureteral stone under fluoroscopy without contrast has failed. Right retrograde pyelogram performed revealing the stone in the proximal ureter. The stone was localized in the X, Y and Z planes. A total of 2500 shocks were delivered per protocol. The patient tolerated the procedure well and transported to the recovery room in excellent condition. Supervision of fluoroscopy interpretation ventriculography: I was present for the entire procedure and I supervised the use of fluoroscopy. There was no radiologist present at any time during this procedure. Attention was turned to the right nephrostomy. A contrast was injected and revealed proximal ureteral stone seemed to fragment on lithotripsy. Louis Quigley MD ES/MODL /[id number]
== END | disposition home or self-care (01) ==
LOC: OR 05:00
PROVIDERS: ATTEND Urology
DX: N20.1 Calculus of ureter (principal); N13.39 Other hydronephrosis; N39.0 Urinary tract infection, site not specified; Z43.6 Encounter for attention to other artificial openings of urinary tract; N40.1 Benign prostatic hyperplasia with lower urinary tract symptoms; N13.8 Other obstructive and reflux uropathy; I10 Essential (primary) hypertension; G47.33 Obstructive sleep apnea (adult) (pediatric); E78.5 Hyperlipidemia, unspecified; E11.9 Type 2 diabetes mellitus without complications; K21.9 Gastro-esophageal reflux disease without esophagitis; E66.01 Morbid (severe) obesity due to excess calories; Z88.0 Allergy status to penicillin; Z01.810 Encounter for preprocedural cardiovascular examination; Z01.812 Encounter for preprocedural laboratory examination; Z79.82 Long term (current) use of aspirin; Z79.4 Long term (current) use of insulin; Z68.43 Body mass index [BMI] 50.0-59.9, adult; Z91.19 Patient's noncompliance with other medical treatment and regimen; Z84.1 Family history of disorders of kidney and ureter
CPT/HCPCS: 36415 ×2; 50590; 74018; 80048; 82948; 93005 ×2; J0360; J0696; J1100; J2001; J2250; J2270; J2405; J2704; Q9967

== ENCOUNTER 2018-09-01 20:50 | Inpatient (IN) | payer BC ==
[~2018-09-01] VITALS: Ht 180.3 cm; Wt 173.7 kg
[~2018-09-01 20:50] MED LIST changes: -AMLODIPINE-VALSARTAN PO; -FARXIGA PO; -FENTANYL CITRATE/PF 100MCG/2 ML INJ ONE; -IOPAMIDOL 370 MG/ML 200 ML INFUS..BTL INJ ONE; -LIDOCAINE HCL 2% LOCAL 20 ML VIAL ONE; -MECLIZINE HCL25 M1 PO; -METFORMIN HCL500 M2 PO; -MIDAZOLAM HCL 2 MG/2 ML VIAL ONE; -SODIUM CHLORIDE 0.9% 500ML 1,000 ML ONE
[2018-09-01] MEDS ORDERED: SODIUM CHLORIDE 0.9% 1000ML 1,000 ML IV ONE ×2 (21:00→21:45)
[2018-09-01] MEDS ORDERED: IBUPROFEN 600 MG TAB PO NR (21:00)
[2018-09-01 21:16] LABS: BILIRUBIN,URINE NEGATIVE (NEGATIVE); CLARITY,URINE CLOUDY (CLEAR); COLOR,URINE YELLOW (YELLOW); KETONES,URINE NEGATIVE (NEGATIVE); LEUKOCYTE ESTERASE ,URINE SMALL (NEGATIVE); NITRITE,URINE NEGATIVE (NEGATIVE); PROTEIN,URINE DIPSTICK 2+ (NEGATIVE); URINE UROBILINOGEN 0.2 mg/dL (0.2 - 1)
[2018-09-01 21:17] LABS: BASOPHILS # (AUTO) 0.1 (0.0-0.1); BASOPHILS % 0.3 % (0.0-1.0); EOSINOPHILS # (AUTO) 0.4 (0.0-0.4); EOSINOPHILS % 2.1 % (0.0-6.0); HEMOGLOBIN 13.1 g/dL (14.0-18.0); LYMPHOCYTES # (AUTO) 2.3 (1.0-3.2); LYMPHOCYTES % 12.8 % (18.0-39.1); MEAN CORPUSCULAR HEMOGLOBIN 26.4 pg (28-32); MEAN CORPUSCULAR HGB CONC 32.8 g/dL (31-35); MEAN CORPUSCULAR VOLUME 80.5 fL (81-99); MONOCYTES # (AUTO) 1.7 (0.2-0.8); MONOCYTES % 9.5 % (4.4-11.3); NEUTROPHILS # (AUTO) 13.6 (2.1-6.9); NEUTROPHILS % 74.9 % (38.7-80.0); PLATELET COUNT 285 x10e3/uL (140-360); RED BLOOD COUNT 4.97 x10e6/uL (4.3-5.7); RED CELL DISTRIBUTION WIDTH 15.3 % (11.7-14.4)
[2018-09-01] MEDS: MEROPENEM 1GM 100 ML IV SCH ×2 (21:20→21:49)
[2018-09-01 21:35] LABS: ALBUMIN 4.1 g/dL (3.5-5.0); ALBUMIN/GLOBULIN RATIO 1.1 (0.8-2.0); ANION GAP 17.4 mmol/L (8-16); CALCIUM 9.7 mg/dL (8.4-10.2); CREATININE, SERUM 1.47 mg/dL (0.72-1.25); POTASSIUM 3.4 mmol/L (3.5-5.1)
[2018-09-01 21:37] LABS: WBC,URINE (MAN) >50 /HPF (0-5)
[2018-09-01 21:38] LABS: BACTERIA,URINE MANY /HPF; EPITHELIAL CELLS,URINE MODERATE /LPF; RBC,URINE >50 /HPF (0-5)
--- NOTE | 2018-09-01 21:49 | Diagnostic Imaging Report ---
Examination: Single AP view of the chest. COMPARISON: April 10, 2012 INDICATION: fever DISCUSSION: Lines/tubes: None. Lungs: Right perihilar opacity may reflect pneumonia. Pleura: No pleural effusion or pneumothorax. Heart and mediastinum: The heart and the mediastinum are unremarkable. Bones and soft tissues: No acute bony abnormalities. IMPRESSION: 1. Right perihilar opacity may reflect pneumonia. Signed by: Dr. Troy Downey M.D. on 09/01/2018 9:46 PM
[2018-09-01] MEDS ORDERED: DEXTROSE 50% SYRINGE 50 ML IV PRN (22:15)
[2018-09-01] MEDS ORDERED: ACETAMINOPHEN 325 MG TAB PO PRN (22:15)
[2018-09-01] MEDS: LEVOFLOXACIN 500MG/D5W 100ML 100 ML IV SCH (22:29)
[2018-09-01 23:15] VITALS: BP 125/64
--- NOTE | 2018-09-01 23:15 | NUR ---
RECEIVED PATIENT FROM ER. PATIENT IS AAOX3. RESP EVEN AND UNLABORED. NO ACUTE DISTRESS NOTED. RIGHT NEPHROSTOMY TUBE NOTED, CLEAR AND YELLOW URINE NOTED. BLE EDEMA 2+ PITTING NOTED. ORIENTED TO ROOM. CALL LIGHT WITHIN REACH. BED LOW/LOCKED. CONTINUE TO MONITOR CLOSELY
[2018-09-01] MEDS ORDERED: AMLODIPINE-VALSARTAN PO (23:34)
[2018-09-01] MEDS ORDERED: MECLIZINE HCL25 M1 PO (23:34)
[2018-09-01] MEDS ORDERED: FARXIGA PO (23:34)
[2018-09-01] MEDS ORDERED: TRIAMTERENE-HC1 EAC2 PO (23:34)
[2018-09-01] MEDS: KCL 20MEQ/.9 SOD CHL 1,000 ML IV SCH (23:45)
[2018-09-02] VITALS (7 sets, daily range): BP systolic 125–174; BP diastolic 64–85
[2018-09-02 05:27] LABS: BASOPHILS # (AUTO) 0.1 (0.0-0.1); BASOPHILS % 0.4 % (0.0-1.0); EOSINOPHILS # (AUTO) 0.3 (0.0-0.4); EOSINOPHILS % 2.5 % (0.0-6.0); HEMATOCRIT 35.2 % (38.2-49.6); HEMOGLOBIN 11.4 g/dL (14.0-18.0); LYMPHOCYTES # (AUTO) 2.6 (1.0-3.2); MEAN CORPUSCULAR HEMOGLOBIN 26.1 pg (28-32); MEAN CORPUSCULAR HGB CONC 32.4 g/dL (31-35); MEAN CORPUSCULAR VOLUME 80.5 fL (81-99); MONOCYTES # (AUTO) 1.4 (0.2-0.8); MONOCYTES % 10.2 % (4.4-11.3); NEUTROPHILS # (AUTO) 9.2 (2.1-6.9); NEUTROPHILS % 67.5 % (38.7-80.0); PLATELET COUNT 244 x10e3/uL (140-360); RED BLOOD COUNT 4.37 x10e6/uL (4.3-5.7); RED CELL DISTRIBUTION WIDTH 15.4 % (11.7-14.4)
[2018-09-02] MEDS: MEROPENEM 1GM 100 ML IV SCH ×3 (05:33→21:28)
[2018-09-02 05:45] LABS: ALANINE AMINOTRANSFERASE 26 IU/L (0-55); ALBUMIN 3.5 g/dL (3.5-5.0); ALBUMIN/GLOBULIN RATIO 1.1 (0.8-2.0); ALKALINE PHOSPHATASE 76 IU/L (40-150); ANION GAP 15.2 mmol/L (8-16); BLOOD UREA NITROGEN 15 mg/dL (7-26); BUN/CREATININE RATIO 13 (6-25); CARBON DIOXIDE 20 mmol/L (22-29); CHLORIDE 106 mmol/L (98-107); CREATININE, SERUM 1.19 mg/dL (0.72-1.25); EST GLOMERULAR FILTRATION RATE > 60 ML/MIN (60-); GLUCOSE 165 mg/dL (74-118); POTASSIUM 3.2 mmol/L (3.5-5.1); SODIUM 138 mmol/L (136-145)
[2018-09-02] MEDS: KCL 20MEQ/.9 SOD CHL 1,000 ML IV SCH ×3 (06:09→23:00)
--- NOTE | 2018-09-02 06:27 | NUR ---
DR COX SAW PATIENT AT BED SIDE.
[2018-09-02] MEDS: INSULIN REGULAR, HUMAN 100 UNIT/1 ML 3ML VIAL SQ SCH ×4 (08:10→21:00)
[2018-09-02] MEDS ORDERED: NON-FORMULARY MEDICATION (Meclizine Hcl 25 MG) PO SCH (11:45)
[2018-09-02] MEDS ORDERED: MECLIZINE HCL 12.5 MG TAB PO PRN (11:45)
[2018-09-02] MEDS ORDERED: POTASSIUM CHLORIDE 10MEQ EA PO ONE (11:45)
--- NOTE | 2018-09-02 12:12 | Consultation ---
DATE OF CONSULTATION: 09/02/2018 Urology Consultation Consultation is called by Dr. De La Cruz in the emergency room and Dr. Freedom Taylor. CHIEF COMPLAINT AND REASON FOR CONSULTATION: Fevers, pneumonia. HISTORY OF PRESENT ILLNESS: Mr. Salmeron is a 53-year-old male patient with a history of recent nephrostomy tube drainage with obstructing right ureteral calculi and bilateral renal calculi status post lithotripsy and nephrostomy placement and morbid obesity. He was admitted to the hospital one day after nephrostomy tube change with fevers greater than 101 degrees. He denied nausea, vomiting. Occasional hematuria. PAST MEDICAL HISTORY: As above with obesity, hypertension. Please see office chart for extensive review. MEDICATIONS: Please see MAR. ALLERGIES: NKDA. SOCIAL HISTORY: Denied smoking or drinking. FAMILY HISTORY: Denied urologic stones or malignancies. REVIEW OF SYSTEMS: Noncontributory other than problems mentioned above for 12 organ systems. PHYSICAL EXAMINATION: GENERAL: An elderly male, in no distress. VITAL SIGNS: Currently, temperature 97.6, pulse 67, respirations 18, blood pressure 133/62. Weight 387. EYES: Sclerae anicteric. NECK: Supple. BACK: Without costovertebral angle tenderness bilaterally. ABDOMEN: Soft. It is nontender. It is nondistended. There is no palpable mass. No palpable hernias. No palpable adenopathy. : Normal male external genitalia. EXTREMITIES: No edema. NEURO: Moves all four extremities. PSYCH: Alert and appropriate. SKIN: Intact, normal color. Percutaneous nephrostomy draining clear yellow urine. PERTINENT LABORATORY DATA: Hemoglobin 13, hematocrit 40, platelet count 285,000, white blood cell count 18,000. Sodium 138, potassium 3.2, chloride 106, bicarb 20, BUN 15, creatinine 1.19, glucose 165. Urinalysis; greater than 50 reds, greater than 50 whites. Nephrostogram showing tube in adequate position. IMPRESSION: 1. Right percutaneous nephrostomy. 2. Urinary tract infection, which was present prior to the recent stone procedures. 3. Morbid obesity. 4. Hypertension. 5. Hypokalemia. PLAN: We will aggressively hydrate the patient and begin on broad-spectrum antibiotics. The patient will need stone intervention after the pneumonia and urinary infections have been resolved. Thank you for allowing me to participate in the care of your patient. We will be happy to follow along with you. MD STEFFANY Forman/ELZA /[id number] cc: MD Freedom Nathan MD
--- NOTE | 2018-09-02 18:47 | NUR ---
Sitting on sofa, call light within reach. AAOX3 to time, person, place. Respirations even and unlabored.Report to be given to oncoming nurse of patient's status.
--- NOTE | 2018-09-02 19:10 | NUR ---
Report completed with morning nurse. Pt sitting on couch. Denies pain at this time. Call saeed within reach. Will continue to monitor.
[2018-09-02] MEDS ORDERED: ATORVASTATIN 20 MG TAB PO SCH (21:00)
[2018-09-02] MEDS: LEVOFLOXACIN 500MG/D5W 100ML 100 ML IV SCH (23:00)
[2018-09-03 00:16] VITALS: BP 177/79
[2018-09-03 04:46] VITALS: BP 181/79
[2018-09-03] MEDS: MEROPENEM 1GM 100 ML IV SCH (05:37)
--- NOTE | 2018-09-03 06:10 | Diagnostic Imaging Report ---
EXAMINATION: PA and lateral views of the chest. COMPARISON: September 01, 2018 CLINICAL HISTORY: Pneumonia DISCUSSION: Lines/tubes: None. Lungs: The lungs are well inflated and clear. Right middle lobe calcified granuloma. No pneumonia or pulmonary edema. Pleura: No pleural effusion or pneumothorax. Heart and mediastinum: The cardiomediastinal silhouette is normal. Bones and soft tissues: No acute bony abnormalities. IMPRESSION: No acute cardiopulmonary abnormalities. Signed by: Dr. Troy Downey M.D. on 09/03/2018 6:06 AM
[2018-09-03 08:00] VITALS: BP 165/79
[2018-09-03] MEDS: INSULIN REGULAR, HUMAN 100 UNIT/1 ML 3ML VIAL SQ SCH ×2 (08:24→11:30)
[2018-09-03 08:25] VITALS: BP 165/69
[2018-09-03] MEDS ORDERED: TRIAMTERENE/HCTZ 37.5-25 MG TAB PO SCH (09:00)
[2018-09-03] MEDS ORDERED: NON-FORMULARY MEDICATION ([Farxiga] 10 MG) PO SCH ×2 (09:00)
[2018-09-03] MEDS ORDERED: PANTOPRAZOLE SOD 40 MG TABEC PO SCH (09:00)
[2018-09-03] MEDS ORDERED: NON-FORMULARY MEDICATION (Meloxicam 15 MG) PO SCH (09:00)
[2018-09-03] MEDS ORDERED: NEBIVOLOL 10 MG TAB PO SCH (09:00)
[2018-09-03] MEDS ORDERED: MELOXICAM 7.5 MG TAB PO SCH (09:00)
[2018-09-03] MEDS: KCL 20MEQ/.9 SOD CHL 1,000 ML IV SCH (10:00)
--- NOTE | 2018-09-03 11:15 | NUR ---
aware of d/c planning. Per "patient cleared to discharge." Dr.S. Taylor aware
[2018-09-03] MEDS ORDERED: LEVAQUIN500 MG PO (11:40)
[2018-09-03 11:46] LABS: ANION GAP 11.5 mmol/L (8-16); BLOOD UREA NITROGEN 9 mg/dL (7-26); BUN/CREATININE RATIO 10 (6-25); CALCIUM 9.1 mg/dL (8.4-10.2); CARBON DIOXIDE 21 mmol/L (22-29); CHLORIDE 107 mmol/L (98-107); CREATININE, SERUM 0.91 mg/dL (0.72-1.25); EST GLOMERULAR FILTRATION RATE > 60 ML/MIN (60-); GLUCOSE 144 mg/dL (74-118); POTASSIUM 3.5 mmol/L (3.5-5.1); SODIUM 136 mmol/L (136-145)
[2018-09-03 12:00] VITALS: BP 139/68
--- NOTE | 2018-09-03 13:58 | NUR ---
Left hand IV discontinued. No signs of infiltration noted. 2x2 gauze and tape placed. Taken via wheelchair to personal car. AAOX4 to time, person, place, situation. Respirations even and unlabored. Discharge instructions, rx, and all personal belongings taken with patient.
[2018-09-03] MEDS ORDERED: POTASSIUM CHLORIDE 20 MEQ TAB CR PO ONE (14:00)
[2018-09-17] MEDS ORDERED: METFORMIN HCL500 M2 PO (14:04)
[2018-09-17] MEDS ORDERED: AMLODIPINE BESYL5 MG PO (14:04)
--- NOTE | 2018-09-27 00:44 | Discharge Summary ---
CHIEF COMPLAINT: Fever and chills. FINAL DIAGNOSES: Urinary tract infection, kidney stone. DISPOSITION: Discharged to home. HOSPITAL COURSE: A 53-year-old male with known history of hypertension, diabetes type 2, hyperlipidemia, and kidney stones. The patient is status post recent nephrostomy tube placement due to large 8 mm stone. He presents to the ER with elevated temp and chills. Evaluated in the ER. Data was carried out. The patient does have evidence of nephrostomy placement. X-rays were performed. Blood work was carried out as well on admission. Findings on the chest x-ray were showing possible findings of infiltrates. Admission was made for treatment regarding UTI, questionable pneumonia, right ureteral stent, single right ureteral stone, diabetes type 2, hypertension. With admission, we will begin IV antibiotics. We will be repeating the chest x-ray. We will continue to have Dr. Samuel follow regarding the issues of the nephrostomy. With admission, the patient was seen by Dr. Quigley, Dr. Samuel's, associated Urology standpoint. With his evaluation, his impression was right percutaneous nephrostomy, urinary tract infection which was present prior to recent stone procedures, morbid obesity, hypertension, hypokalemia. Will be aggressively hydrated. The patient will begin broad-spectrum antibiotics. The patient will need stone intervention as the pneumonia and urinary infections have been resolved. The patient was placed on the Med-Surg floor, was given medications for pain, was still on antibiotics. Laboratory studies were being conducted. The patient was noted to have leukocytosis. Followup chest x-rays were carried out. The patient was resting comfortably and was in no acute distress. The patient stabilized and was cleared for discharge home. We will be taken off the IV antibiotics. We will continue care with p.o. antibiotics. He was released in good condition. IMAGING: Original chest x-ray showing right perihilar opacity may reflect pneumonia. Followup chest x-ray two days later, comparing with the original study. Finding shows no acute cardiopulmonary abnormality. Blood cultures were negative. Urine culture was showing Lisette parapsilosis and Enterococcus faecalis. CBC on the patient was showing elevated white count of 18,000. Followup white cell count was 13,000. Initial H and H were 13.1 and 40.0. Final study was 11.4 and 35.2. Urinalysis shows a cloudy clarity, 2+ protein, 3+ glucose, 3+ occult blood, greater than 50 RBCs by high-power field, greater than 50 WBCs by high-power field, moderate amount of bacteria. Chemistries; initial panel shows potassium slightly low at 3.4, BUN was 18, creatinine 1.47, glucose 200. Lactic acid was 22.2. The patient was being given potassium supplements. However, the followup potassium is still low and it is trended to slow further down to 3.2. Final BUN and creatinine were normal. Final glucose was 147. The patient improved and was discharged. IVs were discontinued. The patient will be released home. Nephrostomy tube in place. We will continue on his ADA diet. No drains or [place] was needed. Activity level as directed by me as well as by Dr. Quigley. FOLLOWUP CARE: 1. The patient will be returning back to Dr. Quigley's office for further outpatient care regarding his onboard nephrostomy. 2. He will also be reporting back to his PCP within 7-10 days. CURRENT MEDICATIONS: The patient will continue on amlodipine besylate 5 mg one tablet daily, Lipitor 20 mg p.o. daily, glucosamine/chondroitin daily, meloxicam 15 mg daily, metformin 500 mg one tablet p.o. HS, Bystolic 20 mg p.o. daily, Protonix 40 mg p.o. daily, triamterene and hydrochlorothiazide 37.5 mg daily, Super B complex one tablet daily, amlodipine and valsartan 5/320 daily, Farxiga 10 mg p.o. daily. If any difficulties or concerns the patient has or may develop before being reviewed on outpatient, he will be contacting his PCP or he may report back to the emergency room. Dictated by SHANNEN Sellers Freedom Taylor MD CC/MODL /[id number]
== END 2018-09-03 13:50 | disposition home or self-care (01) | DRG 194 ==
LOC: ER 20:50 → ERHOLD 22:28 → MED/SURG2 23:29
DX: J15.9 Unspecified bacterial pneumonia (principal); N10 Acute pyelonephritis; Z68.43 Body mass index [BMI] 50.0-59.9, adult; Z93.6 Other artificial openings of urinary tract status; E66.01 Morbid (severe) obesity due to excess calories; I10 Essential (primary) hypertension; E87.6 Hypokalemia; Z83.3 Family history of diabetes mellitus; Z82.49 Family history of ischemic heart disease and other diseases of the circulatory system; E11.9 Type 2 diabetes mellitus without complications; R31.0 Gross hematuria; Z88.0 Allergy status to penicillin
CPT/HCPCS: 36415; 71045; 71046; 80048; 80053; 81001; 82948; 83605; 85025; 87040; 87086; 87186; 96361; 99284; J1817; J1956; J7030

== ENCOUNTER → 2018-09-01 | Day surgery (SDC) | payer BC ==
[~2018-09-01] MED LIST changes: +AMLODIPINE-VALSARTAN PO; -CEFTRIAXONE SOD 1 GM/NS 50 ML 50 ML IV ONE; -DEXAMETHASONE SOD PHOS INJ 4 MG/ML VIAL ONE; -FAMOTIDINE 20 MG/2 ML VIAL IV ONE; +FARXIGA PO; +FENTANYL CITRATE/PF 100MCG/2 ML INJ ONE; -HYDRALAZINE HCL 20 MG/ML VIAL ONE; +IOPAMIDOL 370 MG/ML 200 ML INFUS..BTL INJ ONE; -IOPAMIDOL 610MG/1ML 300 MG/ML VIAL IV ONE; -LABETALOL HCL 20 ML ONE; +LIDOCAINE HCL 2% LOCAL 20 ML VIAL ONE; -LIDOCAINE HCL 2% LOCAL INJ 5 ML SDV VIAL INJ ONE; +MECLIZINE HCL25 M1 PO; +METFORMIN HCL500 M2 PO; -MORPHINE SULFATE INJ 4 MG/ML INJ 1ML ONE; -ONDANSETRON HCL INJ 2MG/ML 2ML 2 MG/ML VIAL ONE; -PROPOFOL IV EMULSION 10 MG/ML 20 ML VIAL ONE; -SCOPOLAMINE 1.5 MG PATCH ONE; -SEVOFLURANE INHAL SOLN 250 ML PEN BTL ONE; +SODIUM CHLORIDE 0.9% 500ML 1,000 ML ONE
--- OUTSIDE RECORDS SUMMARY | 2018-09-07 16:46 | XMS REPORT | Summary of Care ---
Author Author [facility] [place] Organization [facility] [place] Address Unknown Phone Unavailable Encounter IESHA Rawls(FIN) [id number] Date(s): 02/12/18 - 02/12/18 [facility] [place] [address] [place] [phone] Encounter Diagnosis Impingement syndrome of right shoulder (Final) - 02/20/18 Incomplete rotator cuff tear or rupture of right shoulder, not specified as trau matic (Final) - Bicipital tendinitis, right shoulder (Final) - Effusion, left knee (Final) - Pain in left knee (Final) - Discharge Disposition: Home or Self Care Attending Physician: Oswald Wyatt Referring Physician: Oswald Wyatt Vital Signs No data [...] ureteral Resolved stent(Confirmed)4 Sleep Active apnea(Confirmed)5 1lumbar / Dx as acid reflux 3swelling to LE 4left 5uses CPAP Allergies, Adverse Reactions, Alerts Substance Reaction Severity Status penicillins Active Medications No data available for this section Results No data available for this section Immunizations No data available for this section Procedures Procedure Date Related Diagnosis Body Site Status Injection procedure for shoulder arthrography 02/12/[address]/MRI shoulder arthrography Shoulder joint operations1 2010 Completed TKR -Total prosthetic replacement of knee [...]
--- OUTSIDE RECORDS SUMMARY | 2018-09-07 16:46 | XMS REPORT | Continuity of Care Document ---
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 Active 05/31/2015 FIONA Tesfayea ICD NOT GIVEN / CPT 69356 [id number] [id number] Active 12/04/2012 [facility] STONE 592.0 592.1/CPT 04290 74529 Active 12/03/2012 [facility] Acid reflux Active Problem 12/18/2012 [facility] Back pain1 Active Problem 12/18/2012 1lumbar [facility] Chest pain2 Resolved Problem 12/18/2012 Dx as acid reflux [facility] HTN - Hypertension Active Problem 12/18/2012 [facility] Poor peripheral circulation3 Resolved Problem 12/18/2012 3swelling to LE [facility] Sleep apnea4 Active Problem 12/06/2012 4uses CPAP [facility] Foot swelling Active Problem 12/18/2012 [facility] GERD - Gastro-esophageal reflux disease Active Problem 12/18/2012 [facility] Obese Active Problem 12/18/2012 [facility] Renal stone Active Problem 12/18/2012 [facility] Retained ureteral stent4 Active Problem 12/18/2012 4left [facility] Sleep apnea5 Active Problem 12/18/2012 5uses CPAP [facility] Incomplete rotator cuff tear or rupture of right shoulder, not specified as traumatic 09/02/2018 FIONA Ritter Bicipital tendinitis, right shoulder 09/02/2018 [facility] Ritter Effusion, left knee 09/02/2018 [facility] Pain in left knee 09/02/2018 [facility] Acid reflux Active Problem 09/02/2018 FIONA Gagnonann, [facility] [place] [place] Back pain1 Resolved Problem 09/02/2018 lumbar FIONA Ritter, [facility] [place] [place] Chest pain2 Resolved Problem 09/02/2018 7/13 Dx as acid reflux FIONA Ritter, [facility] [place] [place] Diabetes mellitus Active Problem 09/02/2018 FIONA Ritter,[facility] [place] Foot swelling Active Problem 09/02/2018 FIONA Ritter, [facility] [place] [place] GERD - Gastro-esophageal reflux disease Active Problem 09/02/2018 FIONA Ritter, [facility] [place] [place] HTN - Hypertension Active Problem 09/02/2018 FIONA Ritter, [facility] [place] [place] osteoarthritis Active Problem 09/02/2018 FIONA Ritter,[facility] [place] Obese Active Problem 09/02/2018 FIONA Ritter, [facility] [place] Poor peripheral circulation3 Resolved Problem 09/02/2018 swelling to LE FIONA Ritter, [facility] [place] Renal stone Resolved Problem 09/02/2018 FIONA Ritter, [facility] [place] [place] Retained ureteral stent4 Resolved Problem 09/02/2018 left FIONA Ritter, [facility] [place] [place] Sleep apnea5 Active Problem 09/02/2018 uses CPAP FIONA Ritter, [facility] [place] [place] Kidney stone Active Problem 07/10/2017 [facility] Medications Medication Details Route Status Patient Instructions Ordering Provider Order Date Source Invokana , 300 Mg Oral Daily Active 07/08/2017 [facility] Lansoprazole 30 Mg Capsule.dr, 30 Mg Oral Daily Active 07/08/2017 [facility] Valsartan (Diovan) 80 Mg Tab, 320 Mg Oral Daily Active 07/08/2017 [facility] Furosemide (Lasix) 40 Mg Tablet, 40 Mg Oral Daily as needed Active 07/06/2015 [facility] ketorolac 15 mg, 1 mL, Route: IVP, Drug form: INJ, Q6H, Dosing Weight 193.182, kg, Start date: 12/11/12 18:00:00, Duration: 6 doses or times, Stop date: 12/13/12 0:00:00 IVP No Longer Active Maria Isabel 12/11/2012 [facility] Lactated Ringers Injection IV 1000 mL 1,000 mL, Rate: 50 ml/hr, Infuse over: 20 hr, Route: IV, Dosing Weight 193.182 kg, Total Volume: 1,000, Start date: 12/11/12 13:42:00, Duration: 30 day, Stop date: 01/10/13 13:41:00 IV No Longer Active [facility] 12/11/2012 [facility] acetaminophen-hydrocodone 325 mg-5 mg oral tablet 1 tab, Route: PO, Dosing Weight 193.182, kg, Q4H, PRN Pain Score 1-3, Start date: 12/11/12 13:42:00, Duration: 30 day, Stop date: 01/10/13 13:41:00 PO No Longer Active [facility] 12/11/2012 [facility] naloxone 0.04 mg, Route: IVP, Q2MIN, Dosing Weight 193.182, kg, PRN Narcotic Reversal, Start date: 12/11/12 13:42:00, Duration: 8 doses or times, Stop date: Limited # of times IVP No Longer Active [facility] 12/11/2012 [facility] ondansetron 4 mg, Route: IVP, ONCE, Dosing Weight 193.182, kg, PRN Nausea & Vomiting, Start date: 12/11/12 13:42:00 IVP No Longer Active [facility] 12/11/2012 [facility] hydromorphone 0.5 mg, Route: IVP, Q5Min, Dosing Weight 193.182, kg, PRN Pain Score 7-10, Start date: 12/11/12 13:42:00, Duration: 5 doses or times, Stop date: Limited # of times IVP No Longer Active [facility] 12/11/2012 [facility] fentanyl 25 microgram, Route: IVP, Q5Min, Dosing Weight 193.182, kg, PRN Pain Score 4-6, Start date: 12/11/12 13:42:00, Duration: 4 doses or times, Stop date: Limited # of times IVP No Longer Active Carmen 12/11/2012 [facility] flumazenil 0.2 mg, Route: IVP, PRN, Dosing Weight 193.182, kg, PRN Benzodiazepine Reversal, Initial dose, Start date: 12/11/12 13:42:00, Duration: 30 day, Stop date: 01/10/13 12:41:00 IVP No Longer Active Johan 12/11/2012 [facility] morphine Sulfate 2 mg, 1 mL, Route: IVP, Drug form: INJ, Q3H, Dosing Weight 193.182, kg, PRN Pain Score 1-3, Start date: 12/11/12 13:27:00, Duration: 30 day, Stop date: 01/10/13 13:26:00 IVP No Longer Active Mcdonough 12/11/2012 [facility] acetaminophen-hydrocodone 325 mg-10 mg oral tablet 1 tab, Route: PO, Drug Form: TAB, Dosing Weight 193.182, kg, Q4H, PRN Pain Score 4-6, Start date: 12/11/12 13:27:00, Duration: 30 day, Stop date: 01/10/13 13:26:00 PO No Longer Active Mcdonough 12/11/2012 [facility] gentamicin + Sodium Chloride 0.9% IV 100 mL 120 mg, 3 mL, Route: IVPB, Drug form: INJ, ONCALL, Dosing Weight 193.182, kg, Start date: 12/11/12 13:00:00, Duration: 30 day, Stop date: 01/10/13 11:59:00 IVPB No Longer Active Mcdonough 12/11/2012 [facility] Levaquin 500 mg, 100 mL, Route: IV, Drug form: INJ, ONCALL, Dosing Weight 193.182, kg, Start date: 12/11/12 13:00:00 IV No Longer Active Mcdonough 12/11/2012 [facility] Lactated Ringers Injection IV 1000 mL 1,000 mL, Rate: 25 ml/hr, Infuse over: 40 hr, Route: IV, Dosing Weight 193.182 kg, Total Volume: 1,000, Start date: 12/11/12 11:27:00, Duration: 30 day, Stop date: 01/10/13 11:26:00 IV No Longer Active Nick 12/11/2012 [facility] labetalol 5 mg, Route: IVP, Q5Min, Dosing Weight 193.182, kg, PRN Elevated BP, Start date: 12/04/12 13:04:00, Duration: 5 doses or times, Stop date: Limited # of times IVP No Longer Active Saranac 12/04/2012 [facility] esmolol IV Push 10 mg, Route: IVP, Q5Min, Dosing Weight 193.182, kg, PRN Elevated BP, Start date: 12/04/12 13:04:00, Duration: 5 doses or times, Stop date: Limited # of times IVP No Longer Active Saranac 12/04/2012 [facility] hydrALAZINE 5 mg, Route: IVP, Q5Min, Dosing Weight 193.182, kg, PRN Elevated BP, Start date: 12/04/12 13:04:00, Duration: 4 doses or times, Stop date: Limited # of times IVP No Longer Active Saranac 12/04/2012 [facility] acetaminophen-hydrocodone 325 mg-5 mg oral tablet 1 tab, Route: PO, Dosing Weight 193.182, kg, Q4H, PRN Pain Score 1-3, Start date: 12/04/12 13:04:00, Duration: 30 day, Stop date: 01/03/13 13:03:00 PO No Longer Active Saranac 12/04/2012 [facility] hydromorphone 0.5 mg, Route: IVP, Q5Min, Dosing Weight 193.182, kg, PRN Pain Score 7-10, Start date: 12/04/12 13:04:00, Duration: 5 doses or times, Stop date: Limited # of times IVP No Longer Active Saranac 12/04/2012 [facility] ketorolac 30 mg, Route: IVP, ONCE, Dosing Weight 193.182, kg, Start date: 12/04/12 13:04:00, Duration: 1 doses or times, Stop date: 12/04/12 13:04:00 IVP Active Saranac 12/04/2012 [facility] naloxone 0.04 mg, Route: IVP, Q2MIN, Dosing Weight 193.182, kg, PRN Narcotic Reversal, Start date: 12/04/12 13:04:00, Duration: 8 doses or times, Stop date: Limited # of times IVP No Longer Active Saranac 12/04/2012 [facility] dexamethasone 4 mg, Route: IVP, ONCE, Dosing Weight 193.182, kg, PRN Nausea & Vomiting, Start date: 12/04/12 13:04:00 IVP No Longer Active Skyla 12/04/2012 [facility] ondansetron 4 mg, Route: IVP, ONCE, Dosing Weight 193.182, kg, PRN Nausea & Vomiting, Start date: 12/04/12 13:04:00 IVP No Longer Active Skyla 12/04/2012 [facility] flumazenil 0.2 mg, Route: IVP, PRN, Dosing Weight 193.182, kg, PRN Benzodiazepine Reversal, Initial dose, Start date: 12/04/12 13:04:00, Duration: 30 day, Stop date: 01/03/13 13:03:00 IVP No Longer Active Skyla 12/04/2012 [facility] morphine Sulfate 2 mg, Route: IVP, Q3H, Dosing Weight 193.182, kg, PRN Pain Score 1-3, Start date: 12/04/12 12:57:00, Duration: 30 day, Stop date: 01/03/13 12:56:00 IVP No Longer Active Mcdonough 12/04/2012 [facility] acetaminophen-hydrocodone 325 mg-10 mg oral tablet 1 tab, Route: PO, Dosing Weight 193.182, kg, Q4H, PRN Pain Score 4-6, Start date: 12/04/12 12:57:00, Duration: 30 day, Stop date: 01/03/13 12:56:00 PO No Longer Active Mcdonough 12/04/2012 [facility] gentamicin 120 mg, Route: IVPB, ONCE, Dosing Weight 193.182, kg, Start date: 12/04/12 11:27:00, Stop date: 12/04/12 11:27:00 IVPB No Longer Active Mcdonough 12/04/2012 [facility] Levaquin 500 mg, Route: IVPB, ONCE, Dosing Weight 193.182, kg, Start date: 12/04/12 11:27:00, Stop date: 12/04/12 11:27:00 IVPB No Longer Active Mcdonough 12/04/2012 [facility] Lactated Ringers Injection IV 1000 mL 1,000 mL, Rate: 25 ml/hr, Infuse over: 40 hr, Route: IV, Dosing Weight 193.182 kg, Total Volume: 1,000, Start date: 12/04/12 11:05:00, Duration: 30 day, Stop date: 01/03/13 11:04:00 IV No Longer Active Andrea 12/04/2012 [facility] tamsulosin 0.4 mg oral capsule 0.4 mg, 1 cap, PO, Daily, 30 cap, Substitution Allowed, CAP PO Active 12/04/2012 [facility] Zofran 4 mg oral tablet PO, PRN, Substitution Allowed PO Active 12/04/2012 [facility] Cipro PO, Q12H, Substitution Allowed PO Active 12/04/2012 [facility] Aspirin Low Dose 81 mg oral tablet PO, Daily, Substitution Allowed PO Active 12/04/2012 [facility] meloxicam 15 mg oral tablet 15 mg, 1 tab, PO, Daily, 30 tab, Substitution Allowed, TAB PO Active 12/04/2012 [facility] hydrochlorothiazide-triamterene 25 mg-37.5 mg oral capsule 1 cap, PO, Daily, 30 cap, Substitution Allowed, Maintenance, CAP PO Active 12/04/2012 [facility] amLODipine 5 mg oral tablet 5 mg, 1 tab, PO, Daily, 30 tab, Substitution Allowed, TAB PO Active 12/04/2012 [facility] Bystolic 10 mg oral tablet 10 mg, 1 tab, PO, Daily, 30 tab, Substitution Allowed, TAB PO Active 12/04/2012 [facility] atorvastatin 20 mg oral tablet 20 mg, 1 tab, PO, Daily, 30 tab, Substitution Allowed, TAB PO Active 12/04/2012 [facility] Diovan 320 mg oral tablet 320 mg, 1 tab, PO, Daily, 90 tab, Substitution Allowed, TAB PO Active 12/04/2012 [facility] lansoprazole 30 mg oral delayed release capsule 30 mg, 1 cap, PO, Daily, 30 cap, Substitution Allowed PO Active 12/04/2012 [facility] Amlodipine Besylate 5 Mg Tablet Daily Active [facility] Aspirin 81 Mg Tablet Daily Active [facility] Atorvastatin Calcium (Lipitor) 20 Mg Tablet Bedtime Active [facility] Dapagliflozin Daily Active [facility] Levofloxacin (Levaquin) 500 Mg Tablet Daily Active [facility] Meclizine Hcl 12.5 Mg Tablet Three Times A Day as needed for Dizziness Active [facility] Meloxicam 15 Mg Tablet Daily Active [facility] Metformin Hcl 500 Mg Tablet Bedtime Active [facility] Nebivolol Hcl (Bystolic) 10 Mg Tablet Daily Active [facility] Pantoprazole Sodium (Protonix) 40 Mg Tablet.dr Daily Active [facility] Triamterene/Hydrochlorothiazid (Triamterene-Hctz 37.5-25 Mg Cp) 1 Each Capsule Daily Active [facility] Allergies, Adverse Reactions, Alerts Substance Category Reaction Severity Reaction type Status Date Reported Comments Source Penicillin RASH Mild Allergy to Substance Active 04/09/2012 [facility] penicillins Assertion Drug allergy Active [facility] Immunizations No Data Provided for This Section Results Order Name Results Value Reference Range Date Interpretation Comments Source Capillary blood glucose measurement by glucometer (mass/volume) Capillary blood glucose measurement by glucometer (mass/volume) 172 70 - 120 07/10/2017 [facility] Automated blood basophil count (count/volume) Automated blood basophil count (count/volume) 0.0 0.0 - 0.1 07/09/2017 [facility] Automated blood basophil count as percentage of total leukocytes Automated blood basophil count as percentage of total leukocytes 0.1 0.0 - 1.0 07/09/2017 [facility] Automated blood eosinophil count Automated blood eosinophil count 0.2 0.0 - 0.4 07/09/2017 [facility] Automated blood eosinophil count as percentage of total leukocytes Automated blood eosinophil count as percentage of total leukocytes 2.3 0.0 - 6.0 07/09/2017 [facility] Automated blood hematocrit (volume fraction) Automated blood hematocrit (volume fraction) 38.4 38.2 - 49.6 07/09/2017 [facility] Automated blood lymphocyte count as percentage ot total leukocytes Automated blood lymphocyte count as percentage ot total leukocytes 11.8 18.0 - 39.1 07/09/2017 [facility] Automated blood monocyte count as percentage of total leukocytes Automated blood monocyte count as percentage of total leukocytes 12.0 4.4 - 11.3 07/09/2017 [facility] Automated blood neutrophil count Automated blood neutrophil count 5.5 2.1 - 6.9 07/09/2017 [facility] Automated blood platelet count (count/volume) Automated blood platelet count (count/volume) 192 140 - 360 07/09/2017 [facility] Automated blood segmented neutrophil count as percentage of total leukocytes Automated blood segmented neutrophil count as percentage of total leukocytes 73.5 38.7 - 80.0 07/09/2017 [facility] Automated erythrocyte mean corpuscular hemoglobin (mass per erythrocyte) Automated erythrocyte mean corpuscular hemoglobin (mass per erythrocyte) 27.7 28 - 32 07/09/2017 [facility] Automated erythrocyte mean corpuscular hemoglobin concentration measurement (mass/volume) Automated erythrocyte mean corpuscular hemoglobin concentration measurement (mass/volume) 32.6 31 - 35 07/09/2017 [facility] Automated erythrocyte mean corpuscular volume Automated erythrocyte mean corpuscular volume 85.1 81 - 99 07/09/2017 [facility] Blood erythrocytes automated count (number/volume) Blood erythrocytes automated count (number/volume) 4.51 4.3 - 5.7 07/09/2017 [facility] Blood hemoglobin measurement (moles/volume) Blood hemoglobin measurement (moles/volume) 12.5 14.0 - 18.0 07/09/2017 [facility] Blood leukocytes automated count (number/volume) Blood leukocytes automated count (number/volume) 7.47 4.8 - 10.8 07/09/2017 [facility] Blood lymphocytes count (number/volume) Blood lymphocytes count (number/volume) 0.9 1.0 - 3.2 07/09/2017 [facility] Blood monocytes automated count (number/volume) Blood monocytes automated count (number/volume) 0.9 0.2 - 0.8 07/09/2017 [facility] Estimated glomerular filtration rate (GFR) determination Estimated glomerular filtration rate (GFR) determination 50 60 07/09/2017 [facility] Glucose measurement Glucose measurement 142 74 - 118 07/09/2017 [facility] Plasma globulin measurement (mass/volume) Plasma globulin measurement (mass/volume) 3.1 2.3 - 3.5 07/09/2017 [facility] Serum or plasma alanine aminotransferase measurement (enzymatic activity/volume) Serum or plasma alanine aminotransferase measurement (enzymatic activity/volume) 23 0 - 55 07/09/2017 [facility] Serum or plasma albumin measurement (mass/volume) Serum or plasma albumin measurement (mass/volume) 3.3 3.5 - 5.0 07/09/2017 [facility] Serum or plasma albumin/globulin mass ratio Serum or plasma albumin/globulin mass ratio 1.1 0.8 - 2.0 07/09/2017 [facility] Serum or plasma alkaline phosphatase measurement (enzymatic activity/volume) Serum or plasma alkaline phosphatase measurement (enzymatic activity/volume) 65 40 - 150 07/09/2017 [facility] Serum or plasma anion gap Serum or plasma anion gap 12.7 8 - 16 07/09/2017 [facility] Serum or plasma calcium measurement (mass/volume) Serum or plasma calcium measurement (mass/volume) 8.5 8.4 - 10.2 07/09/2017 [facility] Serum or plasma carbon dioxide, total measurement (moles/volume) Serum or plasma carbon dioxide, total measurement (moles/volume) 22 22 - 29 07/09/2017 [facility] Serum or plasma chloride measurement (moles/volume) Serum or plasma chloride measurement (moles/volume) 108 98 - 107 07/09/2017 [facility] Serum or plasma creatinine measurement (mass/volume) Serum or plasma creatinine measurement (mass/volume) 1.46 0.72 - 1.25 07/09/2017 [facility] Serum or plasma potassium measurement (moles/volume) Serum or plasma potassium measurement (moles/volume) 3.7 3.5 - 5.1 07/09/2017 [facility] Serum or plasma protein measurement (mass/volume) Serum or plasma protein measurement (mass/volume) 6.4 6.5 - 8.1 07/09/2017 [facility] Serum or plasma sodium measurement (moles/volume) Serum or plasma sodium measurement (moles/volume) 139 136 - 145 07/09/2017 [facility] Serum or plasma total bilirubin measurement (mass/volume) Serum or plasma total bilirubin measurement (mass/volume) 1.4 0.2 - 1.2 07/09/2017 [facility] Serum or plasma urea nitrogen measurement (mass/volume) Serum or plasma urea nitrogen measurement (mass/volume) 18 7 - 26 07/09/2017 [facility] Serum or plasma urea nitrogen/creatinine mass ratio Serum or plasma urea nitrogen/creatinine mass ratio 12 6 - 25 07/09/2017 [facility] Red Cell Distribution Width 15.0 11.7 - 14.4 07/09/2017 [facility] IM GRANULOCYTES % 0.3 0.0 - 1.0 07/09/2017 [facility] Absolute Immature Granulocyte (auto 0.02 0 - 0.1 07/09/2017 [facility] Aspartate Amino Transf (AST/SGOT) 19 5 - 34 07/09/2017 [facility] Activated partial thromboplastin time (aPTT) in platelet poor plasma bycoagulation assay Activated partial thromboplastin time (aPTT) in platelet poor plasma bycoagulation assay 31.3 23.8 - 35.5 07/08/2017 [facility] INR in Platelet poor plasma by Coagulation assay INR in Platelet poor plasma by Coagulation assay 1.07 07/08/2017 [facility] Prothrombin time (PT) in platelet poor plasma by coagulation assay Prothrombin time (PT) in platelet poor plasma by coagulation assay 13.1 11.9 - 14.5 07/08/2017 [facility] Serum or plasma amylase measurement (enzymatic activity/volume) Serum or plasma amylase measurement (enzymatic activity/volume) 29 25 - 125 07/08/2017 [facility] Serum or plasma lipase measurement (enzymatic activity/volume) Serum or plasma lipase measurement (enzymatic activity/volume) 72 8 - 78 07/08/2017 [facility] Automated urine sediment leukocyte count by microscopy (number/high power field) Automated urine sediment leukocyte count by microscopy (number/high power field) <10 0 - 5 07/08/2017 [facility] Bacteria detection in urine sediment by light microscopy Bacteria detection in urine sediment by light microscopy RARE NONE 07/08/2017 [facility] Epithelial cells detection in urine sediment by light microscopy Epithelial cells detection in urine sediment by light microscopy RARE NONE 07/08/2017 [facility] Erythrocytes detection in urine sediment by light microscopy Erythrocytes detection in urine sediment by light microscopy <50 0 - 5 07/08/2017 [facility] Specific gravity of Urine by Test strip Specific gravity of Urine by Test strip 1.025 1.010 - 1.025 07/08/2017 [facility] Urine clarity Urine clarity CLEAR CLEAR 07/08/2017 [facility] Urine color determination Urine color determination YELLOW YELLOW 07/08/2017 [facility] Urine erythrocytes detection Urine erythrocytes detection 2+ NEGATIVE 07/08/2017 [facility] Urine glucose detection Urine glucose detection 2+ NEGATIVE 07/08/2017 [facility] Urine ketones detection by automated test strip Urine ketones detection by automated test strip NEGATIVE NEGATIVE 07/08/2017 [facility] Urine leukocyte esterase detection by dipstick Urine leukocyte esterase detection by dipstick NEGATIVE NEGATIVE 07/08/2017 [facility] Urine nitrite detection Urine nitrite detection NEGATIVE NEGATIVE 07/08/2017 [facility] Urine pH measurement by automated test strip Urine pH measurement by automated test strip 5 5 - 7 07/08/2017 [facility] Urine protein measurement by test strip (mass/volume) Urine protein measurement by test strip (mass/volume) 1+ NEGATIVE 07/08/2017 [facility] Urine total bilirubin measurement (mass/volume) Urine total bilirubin measurement (mass/volume) NEGATIVE NEGATIVE 07/08/2017 [facility] Urine urobilinogen measurement by test strip (mass/volume) Urine urobilinogen measurement by test strip (mass/volume) 0.2 0.2 - 1 07/08/2017 [facility] URINALYSIS UA Color [place] 12/09/2012 NA [facility] URINALYSIS UA RBC >182 0 - 2 12/09/2012 [facility] URINALYSIS UA Sq Epi Occasional /LPF *NA* (12/09/2012 13:30:00) Few 12/09/2012 NA [facility] URINALYSIS UA WBC 9 0 - 5 12/09/2012 HI [facility] URINALYSIS UA Turbidity Clear (12/09/2012 13:30:00) Clear 12/09/2012 Normal [facility] URINALYSIS UA Protein Negative mg/dL (12/09/2012 13:30:00) Negative 12/09/2012 Normal [facility] URINALYSIS UA pH 5.0 5.0 - 8.0 12/09/2012 Normal [facility] URINALYSIS UA Spec Grav 1.015 <=1.030 12/09/2012 Normal [facility] URINALYSIS UA Blood Large *ABN* (12/09/2012 13:30:00) Negative 12/09/2012 ABN [facility] URINALYSIS UA Urobilinogen 2.0 0.1 - 1.0 12/09/2012 [facility] URINALYSIS UA Nitrite Positive *ABN* (12/09/2012 13:30:00) Negative 12/09/2012 ABN [facility] URINALYSIS UA Leuk Est Negative (12/09/2012 13:30:00) Negative 12/09/2012 Normal [facility] URINALYSIS UA Glucose Negative mg/dL *NA* (12/09/2012 13:30:00) Negative 12/09/2012 [facility] URINALYSIS UA Ketones Negative mg/dL *NA* (12/09/2012 13:30:00) Negative 12/09/2012 [facility] URINALYSIS UA Bili Negative *NA* (12/09/2012 13:30:00) Negative 12/09/2012 [facility] Microbiology Culture: Urine 12/09/2012 [facility] CHEMISTRY eGFR 78 12/04/2012 NA <sup>1</sup>Result Comment: The eGFR is calculated using the CKD-EPI formula. In most young, healthy individuals the eGFR will be >90 mL/min/1.73m2. The eGFR declines with age. An eGFR of 60-89 may be normal in some populations, particularly the elderly, for whom the CKD-EPI formula has not been extensively validated. Use of the eGFR is not recommended in the following populations:& lt;br/>
Individuals with unstable creatinine concentrations, including patients [...] should be multiplied by the estimated BMI. [facility] CHEMISTRY CO2 29 24 - 32 12/04/2012 Normal [facility] CHEMISTRY Creatinine Lvl 1.1 0.5 - 1.4 12/04/2012 Normal [facility] CHEMISTRY Glucose Lvl 175 70 - 99 12/04/2012 HI <sup>2</sup>Interpretive Data: Adult reference range values reflect the clinical guidelines
of the [place] [employer]. [facility] CHEMISTRY BUN 15 7 - 22 12/04/2012 Normal [facility] CHEMISTRY Calcium Lvl 8.7 8.5 - 10.5 12/04/2012 Normal [facility] CHEMISTRY Potassium Lvl 3.9 3.5 - 5.1 12/04/2012 Normal [facility] CHEMISTRY Sodium Lvl 144 135 - 145 12/04/2012 Normal [facility] CHEMISTRY Chloride Lvl 107 95 - 109 12/04/2012 Normal [facility] CHEMISTRY AGAP 11.9 10.0 - 20.0 12/04/2012 Normal [facility] HEMATOLOGY Hgb 11.7 14.0 - 18.0 12/04/2012 LOW [facility] HEMATOLOGY MCV 83.6 80.0 - 94.0 12/04/2012 Normal [facility] HEMATOLOGY Hct 36.1 42.0 - 54.0 12/04/2012 LOW [facility] HEMATOLOGY RDW 14.2 11.5 - 14.5 12/04/2012 Normal [facility] HEMATOLOGY Platelet 217 133 - 450 12/04/2012 Normal [facility] HEMATOLOGY MPV 8.7 7.4 - 10.4 12/04/2012 Normal [facility] HEMATOLOGY RBC 4.32 4.70 - 6.10 12/04/2012 LOW [facility] HEMATOLOGY MCHC 32.3 32.0 - 36.0 12/04/2012 Normal [facility] HEMATOLOGY MCH 27.0 27.0 - 31.0 12/04/2012 Normal [facility] HEMATOLOGY WBC 7.0 3.7 - 10.4 12/04/2012 Normal [facility] Segs-Bands # 5.0 1.5 - 8.1 12/04/2012 Normal [facility] Basophils 0.2 0.0 - 1.0 12/04/2012 Normal [facility] Eosinophils # 0.1 0.0 - 0.5 12/04/2012 Normal [facility] Monocytes # 0.6 0.0 - 0.8 12/04/2012 Normal [facility] Lymphocytes # 1.2 1.0 - 5.5 12/04/2012 Normal [facility] Segs 72.1 45.0 - 75.0 12/04/2012 Normal [facility] Eosinophils 2.1 0.0 - 4.0 12/04/2012 Normal [facility] Monocytes 8.7 2.0 - 12.0 12/04/2012 Normal [facility] Lymphocytes 16.9 20.0 - 40.0 12/04/2012 LOW [facility] Basophils # 0.0 0.0 - 0.2 12/04/2012 Normal [facility] PTT 30.0 22.9 - 35.8 12/04/2012 Normal <sup>4</sup>Interpretive Data: Heparin Therapeutic Range: 57 - 92 Seconds [facility] PT 12.8 12.0 - 14.7 12/04/2012 Normal [facility] INR 0.97 0.85 - 1.17 12/04/2012 Normal <sup>3</sup>Interpretive Data: RECOMMENDED RANGES FOR PROTIME INR:
2.0-3.0 for most medical and surgical thromboembolic states.
2.5-3.5 for artificial heart valves and recurrent embolism.

INR SHOULD BE USED ONLY FOR PATIENTS ON STABLE ANTICOAGULANT THERAPY. [facility] Pathology Reports No Data Provided for This Section Diagnostic Reports Report Value Date Source Shoulder w contrast MRI EXAM: MR ARTHROGRAM RIGHT SHOULDER DATE: 02/12/2018 10:01 AM PEGGER INDICATION: - M25.511 Pain in right shoulder [...] tendon. 4. Degenerative type labral tear. 02/12/2018 DANIEL Ritter Inj Arthrogram Shoulder Unilat DX EXAM: FLUOROSCOPY-GUIDED RIGHT SHOULDER INJECTION FOR MR ARTHROGRAM DATE: 02/12/2018 9:20 AM PEGGER INDICATION: - M25.511 Pain in right shoulder [...] right shoulder injection for MR arthrogram. 02/12/2018 DANIEL Ritter Brain w/wo contrast MRI EXAM: MRI OF [...] is otherwise normal. 3. Normal orbits 06/16/2015 DANIEL Christy Abdomen AP view Spot images from Cystoscopy show a left ureteral stent in good position. SL:13 12/11/2012 [facility] Kidney pyelogram retrograde RETROGRADE PYELOGRAPHY COMPARISON: None IMPRESSION: Multiple fluoroscopic spot radiographs are submitted, demonstrating bilateral retrograde pyelography. Refer to the operating clinician's report for further discussion. SL: 13 12/04/2012 [facility] Consultation Notes No Data Provided for This Section Discharge Summaries No Data Provided for This Section History and Physicals No Data Provided for This Section Vital Signs Vital Sign Value Date Comments Source Systolic (mm Hg) 156 12/11/2012 [facility] Diastolic (mm Hg) 55 12/11/2012 [facility] Diastolic (mm Hg) 72 12/11/2012 [facility] Systolic (mm Hg) 150 12/11/2012 [facility] Respitory Rate 17 12/11/2012 [facility] Systolic (mm Hg) 135 12/11/2012 [facility] Diastolic (mm Hg) 65 12/11/2012 [facility] Respitory Rate 14 12/11/2012 [facility] Respitory Rate 18 12/11/2012 [facility] Heart Rate 66 12/11/2012 [facility] Temperature Oral (F) 98.3 F 12/09/2012 [facility] Heart Rate 74 12/09/2012 [facility] Height 177.8 cm 12/09/2012 [facility] Weight 193.182 12/09/2012 [facility] Diastolic (mm Hg) 70 12/04/2012 [facility] Systolic (mm Hg) 144 12/04/2012 [facility] Respitory Rate 19 12/04/2012 [facility] Systolic (mm Hg) 146 12/04/2012 [facility] Diastolic (mm Hg) 75 12/04/2012 [facility] Systolic (mm Hg) 145 12/04/2012 [facility] Diastolic (mm Hg) 63 12/04/2012 [facility] Respitory Rate 16 12/04/2012 [facility] Respitory Rate 18 12/04/2012 [facility] Heart Rate 73 12/04/2012 [facility] Temperature Oral (F) 98.3 F 12/04/2012 [facility] Weight 193.182 12/04/2012 [facility] Height 177.8 cm 12/04/2012 [facility] Encounters Location Location Details Encounter Type Encounter Number Reason For Visit Attending Provider ADM Date DC Date Status Source [facility] DS [id number] [facility] 12/04/2012 12/04/2012 Discharged [facility] DS [id number] [facility] 12/11/2012 12/11/2012 Discharged [facility] [place] [facility] [id number] Baltazar Zendejasz 06/16/2015 06/17/2015 FIONA Christy Discharged Inpatient [id number] GISELA CARABALLO MD 07/09/2017 07/10/2017 [facility] [id number] Oswald Wyatt 02/12/2018 02/13/2018 [facility] [place] [facility] [place] OP Therapy Patients [id number] Oswald Wyatt 04/07/2018 05/07/2018 [facility] [place] [facility] [place] [facility] [id number] Oswald Wyatt 05/07/2018 06/06/2018 [facility] [place] Procedures Procedure Code Date Perfomer Comments Source Injection procedure for shoulder arthrography or enhanced CT/MRI shoulder arthrography [id number] 02/12/2018 FIONA Ritter Cystoscopy with retrograde pyelography [id number] 07/10/2017 [facility] CT of abdomen and pelvis without contrast [id number] 07/08/2017 JOSUE [facility] Cystourethroscopy, with insertion of indwelling ureteral stent (eg, [place] or double- J type) [id number] 12/11/2012 [facility] Cystourethroscopy, with ureteroscopy and/or pyeloscopy; with removal or manipulation of calculus (ureteral catheterization is included) 04344 12/11/2012 [facility] Transurethral Removal of Obstruction from Ureter and Renal Pelvis [id number] 12/11/2012 [facility] Ureteral Catheterization [id number] 12/11/2012 [facility] Shoulder joint operations<sup>1</sup> [id number] 03/10/2010 [facility] tear [facility] Shoulder joint operations<sup>1</sup> [id number] 03/10/2010 SLAP tear FIONA Ritter 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 [id number] 03/10/2007 [facility] 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 [id number] [facility] [id number] [facility] Cardiac catheterization [id number] [facility] Cholecystectomy [id number] [facility] 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 approach <sup>1</sup> [id number] 1bone graft & metal plate [facility] Lithotripsy [id number] [facility] Shoulder joint operations [id number] [facility] Stent placement [id number] [facility] 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 [id number] [place] A[facility] [id number] [facility] [place] Arthroplasty of knee [id number] [facility] [place] Cardiac catheterization [id number] [facility] [place] Cholecystectomy [id number] [facility] [place] 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 approach<sup>2</sup> [id number] bone graft & metal plate [facility] [place] Lithotripsy [id number] [facility] [place] Stent placement [id number] [facility] [place] Ablation [id number] [facility] Arthroplasty of knee [id number] [facility] [place] Cardiac catheterization [id number] [facility] [place] Cholecystectomy [id number] [facility] 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 approach<sup>2</sup> [id number] bone graft & metal plate [facility] Lithotripsy [id number] [facility] Stent placement [id number] [facility] [place] Ablation [id number] [facility] [place] Cardiac catheterization [id number] [facility] [place] Cholecystectomy [id number] [facility] [place] 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 approach<sup>1</sup> [id number] bone graft & metal plate [facility] [place] Lithotripsy [id number] [facility] [place] Shoulder joint operations [id number] [facility] [place] Stent placement [id number] [facility] [place] 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 [place] [address] Additional Instructions/Education Cardiac diet Activity as tolerated Take medications as prescribed Follow up with 1-2 weeks Follow up with PCP 1 week 07/10/2017 [facility] Social History Social History Date Source Social History TypeResponse Substance Abuse Use: None. Alcohol Never Smoking Status Never smoker; Exposure to Tobacco Smoke None; Cigarette Smoking Last 365 Days No; Reg Smoking Cessation Counseling No entered on: 03/13/18 03/13/2018 SARAH Christy Social History TypeResponse Substance Abuse Use: None. Alcohol Never Smoking Status Never smoker; Exposure to Tobacco Smoke None; Cigarette Smoking Last 365 Days No; Reg Smoking Cessation Counseling No entered on: 03/13/18 03/13/2018 FIONA Ritter Social History Problem Response Recorded Date/Time Onset Date Status Hx Psychiatric Problems No 07/08/2017 10:40am Not Applicable Not Applicable Hx Eating Disorder No 07/08/2017 10:40am Not Applicable Not Applicable Hx Substance Use Disorder No 07/08/2017 10:40am Not Applicable Not Applicable Hx Depression No 07/08/2017 10:40am Not Applicable Not Applicable Hx Alcohol Use No 07/08/2017 10:40am Not Applicable Not Applicable Hx Substance Use Treatment No 07/08/2017 10:40am Not Applicable Not Applicable Hx Physical Abuse No 07/08/2017 10:40am Not Applicable Not Applicable 07/10/2017 [facility] No data available for this section 06/17/2015 DANIEL Christy Family History No Data Provided for This Section Advance Directives Order Name Results Value Date Source Advance Directives Advance Directives Directive Response Recorded Date/Time Does the patient have an advance directive? No 07/08/17 10:40am If yes, is advance directive on file with [facility]? No 07/08/17 10:40am If not on file with [facility] will patient provide a copy? No 07/08/17 10:40am Do you have a Directive to Physician? No 07/08/17 6:18am Do you have a Medical Power of Midlevel Provider? No 07/08/17 6:18am Do you have an out of hospital Do Not Resuscitate Order? No 07/08/17 6:18am Do you have any special needs we should be aware of? No 07/08/17 6:18am Do you have a support person here with you today? No 07/08/17 6:18am Did patient receive Notice of Privacy Practices? Yes 07/08/17 6:18am Did patient receive patient rights and responsibilities? Yes 07/08/17 6:18am 07/10/2017 [facility] Functional Status No Data Provided for This Section
--- NOTE | 2018-09-09 16:23 | Diagnostic Imaging Report ---
Procedure: Right nephrostomy catheter injection and exchange for a nephroureteral stent. Medications: Versed 3 mg intravenous, Fentanyl 75 mcg intravenous given in an incremental fashion. The patient's vital signs, including pulse oximetry, were continuously monitored by the interventional radiology nurse. Sedation time was 60 minutes or less. Fluoroscopy time: 4.4 minutes. Dose area product: 7845.7 cGycm2 Contrast used: None Estimated blood loss: Minimal. Complications: No immediate. Procedure in detail: Informed consent for the procedure was obtained from the patient after discussion of risks and benefits. Right nephrostomy catheter was injected with dilute contrast material. Images were obtained of the right renal collecting system, right ureter and bladder. 1% lidocaine was administered into the skin and subcutaneous tissues of the right catheter tract for local anesthesia. The catheter was then removed over a 0.035 " J-wire. A 5 Indonesian Kumpe catheter was then advanced over the wire and utilizing a 0.035" hydrophilic Glidewire the wire and catheter was advanced into the bladder. An Amplatz 0.035 " superstiff wire was advanced into the bladder through the Kumpe catheter for firm control. A 10.2 Indonesian 26 cm long nephroureteral stent was then placed over the Amplatz wire. Distal pigtail noted within the bladder and proximal pigtail within the renal pelvis. This was secured to the skin with 3-0 Ethilon. Instructions were given for drainage into a bag for 24 hours. The drainage bag can then be removed and the catheter capped for internal drainage. Impression: 1. Right nephrostogram showing a 4-5 mm ureteral stone at the level of the sacrum that is nonobstructing. 2. Nephrostomy catheter was exchanged for a nephroureteral stent with appropriate placement. Signed by: Dr. Jez Foster DO on 09/01/2018 1:02 PM
== END ==
LOC: DX 07:43 → OR 07:43 → EDSTATUS 08:00
PROVIDERS: ATTEND Urology
DX: N20.1 Calculus of ureter (principal); N13.30 Unspecified hydronephrosis
CPT/HCPCS: 50434; C1769; C2625 ×2; J2001; J2250; J7040; Q9967; 50433; 50435; J3010

== ENCOUNTER → 2018-09-18 | Day surgery (SDC) | payer BC ==
[~2018-09-18] MED LIST changes: +AMLODIPINE-VALSARTAN PO; +DEXAMETHASONE SOD PHOS INJ 4 MG/ML VIAL ONE; +FAMOTIDINE 20 MG/2 ML VIAL IV ONE; +FARXIGA PO; +FENTANYL CITRATE/PF 100MCG/2 ML INJ ONE; +GENTAMICIN 120MG/NS 100ML 100 ML ONE; +GLYCOPYRROLATE INJ 1MG/ 5 ML SYR ONE; +IOPAMIDOL 610MG/1ML 300 MG/ML VIAL IV ONE; +LIDOCAINE HCL 2% LOCAL INJ 5 ML SDV VIAL INJ ONE; +MECLIZINE HCL25 M1 PO; +METFORMIN HCL500 M2 PO; +METOCLOPRAMIDE HCL 10 MG/2ML VIAL ONE; +MIDAZOLAM HCL 2 MG/2 ML VIAL ONE; +ONDANSETRON HCL INJ 2MG/ML 2ML 2 MG/ML VIAL ONE; +PROPOFOL IV EMULSION 10 MG/ML 20 ML VIAL ONE; +ROCURONIUM BROMIDE 10 MG/ML 5ML VIAL ONE; +SCOPOLAMINE 1.5 MG PATCH ONE; +SEVOFLURANE INHAL SOLN 250 ML PEN BTL ONE; +SUCCINYLCHOLINE 200 MG/10 ML SYR ONE
--- OUTSIDE RECORDS SUMMARY | 2018-09-18 08:34 | XMS REPORT | Continuity of Care Document ---
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 Active 05/31/2015 [facility] Tesfayea ICD NOT GIVEN / CPT 84820 [id number] Active 12/04/2012 [facility] STONE 592.0 592.1/CPT 66798 09753 Active 12/03/2012 [facility] Acid reflux Active Problem 12/18/2012 [facility] Back pain1 Active Problem 12/18/2012 1lumbar [facility] Chest pain2 Resolved Problem 12/18/2012 Dx as acid reflux [facility] HTN - Hypertension Active Problem 12/18/2012 [facility] Poor peripheral circulation3 Resolved Problem 12/18/2012 3swelling to LE [facility] Sleep apnea4 Active Problem 12/06/2012 4uses CPAP [facility] Foot swelling Active Problem 12/18/2012 [facility] GERD - Gastro-esophageal reflux disease Active Problem 12/18/2012 [facility] Obese Active Problem 12/18/2012 [facility] Renal stone Active Problem 12/18/2012 [facility] Retained ureteral stent4 Active Problem 12/18/2012 4left [facility] Sleep apnea5 Active Problem 12/18/2012 5uses CPAP [facility] Incomplete rotator cuff tear or rupture of right shoulder, not specified as traumatic 09/02/2018 F[facility]A Ritter Bicipital tendinitis, right shoulder 09/02/2018 [facility] Ritter Effusion, left knee 09/02/2018 [facility] Pain in left knee 09/02/2018 [facility] Acid reflux Active Problem 09/02/2018 FIONA Gagnonann, [facility], [facility] Back pain1 Resolved Problem 09/02/2018 lumbar FIONA Ritter, [facility], [facility] Chest pain2 Resolved Problem 09/02/2018 7/13 Dx as acid reflux [facility]A Ritter, [facility] Diabetes mellitus Active Problem 09/02/2018 [facility]A Ritter,[facility] Foot swelling Active Problem 09/02/2018 FIONA Ritter, [facility] GERD - Gastro-esophageal reflux disease Active Problem 09/02/2018 FIONA Ritter, [facility] HTN - Hypertension Active Problem 09/02/2018 FIONA Ritter, [facility] osteoarthritis Active Problem 09/02/2018 [facility]A Ritter,[facility] Obese Active Problem 09/02/2018 FIONA Ritter, [facility] Poor peripheral circulation3 Resolved Problem 09/02/2018 swelling to LE FIONA Ritter, [facility] Renal stone Resolved Problem 09/02/2018 FIONA Ritter, [facility] Retained ureteral stent4 Resolved Problem 09/02/2018 left FOINA Ritter, [facility] Sleep apnea5 Active Problem 09/02/2018 uses CPAP FIONA Ritter, [facility] Kidney stone Active Problem 07/10/2017 [facility] Medications Medication Details Route Status Patient Instructions Ordering Provider Order Date Source Invokana , 300 Mg Oral Daily Active 07/08/2017 [facility] Lansoprazole 30 Mg Capsule.dr, 30 Mg Oral Daily Active 07/08/2017 [facility] Valsartan (Diovan) 80 Mg Tab, 320 Mg Oral Daily Active 07/08/2017 [facility] Furosemide (Lasix) 40 Mg Tablet, 40 Mg Oral Daily as needed Active 07/06/2015 [facility] ketorolac 15 mg, 1 mL, Route: IVP, Drug form: INJ, Q6H, Dosing Weight 193.182, kg, Start date: 12/11/12 18:00:00, Duration: 6 doses or times, Stop date: 12/13/12 0:00:00 IVP No Longer Active Maria Isabel 12/11/2012 [facility] Lactated Ringers Injection IV 1000 mL 1,000 mL, Rate: 50 ml/hr, Infuse over: 20 hr, Route: IV, Dosing Weight 193.182 kg, Total Volume: 1,000, Start date: 12/11/12 13:42:00, Duration: 30 day, Stop date: 01/10/13 13:41:[address] [facility] [place] 12/11/2012 [facility] acetaminophen-hydrocodone 325 mg-5 mg oral tablet 1 tab, Route: PO, Dosing Weight 193.182, kg, Q4H, PRN Pain Score 1-3, Start date: 12/11/12 13:42:00, Duration: 30 day, Stop date: 01/10/13 13:41:[address] [facility] [place] 12/11/2012 [facility] naloxone 0.04 mg, Route: IVP, Q2MIN, Dosing Weight 193.182, kg, PRN Narcotic Reversal, Start date: 12/11/12 13:42:00, Duration: 8 doses or times, Stop date: Limited # of times IVP No Longer Active [facility] [place] 12/11/2012 [facility] ondansetron 4 mg, Route: IVP, ONCE, Dosing Weight 193.182, kg, PRN Nausea & Vomiting, Start date: 12/11/12 13:42:[address] Longer Active [facility] [place] 12/11/2012 [facility] hydromorphone 0.5 mg, Route: IVP, Q5Min, Dosing Weight 193.182, kg, PRN Pain Score 7-10, Start date: 12/11/12 13:42:00, Duration: 5 doses or times, Stop date: Limited # of times IVP No Longer Active [facility] [place] 12/11/2012 [facility] fentanyl 25 microgram, Route: IVP, Q5Min, Dosing Weight 193.182, kg, PRN Pain Score 4-6, Start date: 12/11/12 13:42:00, Duration: 4 doses or times, Stop date: Limited # of times IVP No Longer Active Carmen 12/11/2012 [facility] flumazenil 0.2 mg, Route: IVP, PRN, Dosing Weight 193.182, kg, PRN Benzodiazepine Reversal, Initial dose, Start date: 12/11/12 13:42:00, Duration: 30 day, Stop date: 01/10/13 12:41:00 IVP No Longer Active Johan 12/11/2012 [facility] morphine Sulfate 2 mg, 1 mL, Route: IVP, Drug form: INJ, Q3H, Dosing Weight 193.182, kg, PRN Pain Score 1-3, Start date: 12/11/12 13:27:00, Duration: 30 day, Stop date: 01/10/13 13:26:00 IVP No Longer Active Mcdonough 12/11/2012 [facility] acetaminophen-hydrocodone 325 mg-10 mg oral tablet 1 tab, Route: PO, Drug Form: TAB, Dosing Weight 193.182, kg, Q4H, PRN Pain Score 4-6, Start date: 12/11/12 13:27:00, Duration: 30 day, Stop date: 01/10/13 13:26:00 PO No Longer Active Mcdonough 12/11/2012 [facility] gentamicin + Sodium Chloride 0.9% IV 100 mL 120 mg, 3 mL, Route: IVPB, Drug form: INJ, ONCALL, Dosing Weight 193.182, kg, Start date: 12/11/12 13:00:00, Duration: 30 day, Stop date: 01/10/13 11:59:00 IVPB No Longer Active Mcdonough 12/11/2012 [facility] Levaquin 500 mg, 100 mL, Route: IV, Drug form: INJ, ONCALL, Dosing Weight 193.182, kg, Start date: 12/11/12 13:00:00 IV No Longer Active Mcdonough 12/11/2012 [facility] Lactated Ringers Injection IV 1000 mL 1,000 mL, Rate: 25 ml/hr, Infuse over: 40 hr, Route: IV, Dosing Weight 193.182 kg, Total Volume: 1,000, Start date: 12/11/12 11:27:00, Duration: 30 day, Stop date: 01/10/13 11:26:00 IV No Longer Active Nick 12/11/2012 [facility] labetalol 5 mg, Route: IVP, Q5Min, Dosing Weight 193.182, kg, PRN Elevated BP, Start date: 12/04/12 13:04:00, Duration: 5 doses or times, Stop date: Limited # of times IVP No Longer Active [place] 12/04/2012 [facility] esmolol IV Push 10 mg, Route: IVP, Q5Min, Dosing Weight 193.182, kg, PRN Elevated BP, Start date: 12/04/12 13:04:00, Duration: 5 doses or times, Stop date: Limited # of times IVP No Longer Active [place] 12/04/2012 [facility] hydrALAZINE 5 mg, Route: IVP, Q5Min, Dosing Weight 193.182, kg, PRN Elevated BP, Start date: 12/04/12 13:04:00, Duration: 4 doses or times, Stop date: Limited # of times IVP No Longer Active [place] 12/04/2012 [facility] acetaminophen-hydrocodone 325 mg-5 mg oral tablet 1 tab, Route: PO, Dosing Weight 193.182, kg, Q4H, PRN Pain Score 1-3, Start date: 12/04/12 13:04:00, Duration: 30 day, Stop date: 01/03/13 13:03:00 PO No Longer Active [place] 12/04/2012 [facility] hydromorphone 0.5 mg, Route: IVP, Q5Min, Dosing Weight 193.182, kg, PRN Pain Score 7-10, Start date: 12/04/12 13:04:00, Duration: 5 doses or times, Stop date: Limited # of times IVP No Longer Active [place] 12/04/2012 [facility] ketorolac 30 mg, Route: IVP, ONCE, Dosing Weight 193.182, kg, Start date: 12/04/12 13:04:00, Duration: 1 doses or times, Stop date: 12/04/12 13:04:00 IVP Active [place] 12/04/2012 [facility] naloxone 0.04 mg, Route: IVP, Q2MIN, Dosing Weight 193.182, kg, PRN Narcotic Reversal, Start date: 12/04/12 13:04:00, Duration: 8 doses or times, Stop date: Limited # of times IVP No Longer Active [place] 12/04/2012 [facility] dexamethasone 4 mg, Route: IVP, ONCE, Dosing Weight 193.182, kg, PRN Nausea & Vomiting, Start date: 12/04/12 13:04:00 IVP No Longer Active Skyla 12/04/2012 [facility] ondansetron 4 mg, Route: IVP, ONCE, Dosing Weight 193.182, kg, PRN Nausea & Vomiting, Start date: 12/04/12 13:04:00 IVP No Longer Active Skyla 12/04/2012 [facility] flumazenil 0.2 mg, Route: IVP, PRN, Dosing Weight 193.182, kg, PRN Benzodiazepine Reversal, Initial dose, Start date: 12/04/12 13:04:00, Duration: 30 day, Stop date: 01/03/13 13:03:00 IVP No Longer Active Skyla 12/04/2012 [facility] morphine Sulfate 2 mg, Route: IVP, Q3H, Dosing Weight 193.182, kg, PRN Pain Score 1-3, Start date: 12/04/12 12:57:00, Duration: 30 day, Stop date: 01/03/13 12:56:00 IVP No Longer Active Mcdonough 12/04/2012 [facility] acetaminophen-hydrocodone 325 mg-10 mg oral tablet 1 tab, Route: PO, Dosing Weight 193.182, kg, Q4H, PRN Pain Score 4-6, Start date: 12/04/12 12:57:00, Duration: 30 day, Stop date: 01/03/13 12:56:00 PO No Longer Active Mcdonough 12/04/2012 [facility] gentamicin 120 mg, Route: IVPB, ONCE, Dosing Weight 193.182, kg, Start date: 12/04/12 11:27:00, Stop date: 12/04/12 11:27:00 IVPB No Longer Active [place]ough 12/04/2012 [facility] Levaquin 500 mg, Route: IVPB, ONCE, Dosing Weight 193.182, kg, Start date: 12/04/12 11:27:00, Stop date: 12/04/12 11:27:00 IVPB No Longer Active [place]cdonough 12/04/2012 [facility] Lactated Ringers Injection IV 1000 mL 1,000 mL, Rate: 25 ml/hr, Infuse over: 40 hr, Route: IV, Dosing Weight 193.182 kg, Total Volume: 1,000, Start date: 12/04/12 11:05:00, Duration: 30 day, Stop date: 01/03/13 11:04:00 IV No Longer Active Andrea 12/04/2012 [facility] tamsulosin 0.4 mg oral capsule 0.4 mg, 1 cap, PO, Daily, 30 cap, Substitution Allowed, CAP PO Active 12/04/2012 [facility] Zofran 4 mg oral tablet PO, PRN, Substitution Allowed PO Active 12/04/2012 [facility] Cipro PO, Q12H, Substitution Allowed PO Active 12/04/2012 [facility] Aspirin Low Dose 81 mg oral tablet PO, Daily, Substitution Allowed PO Active 12/04/2012 [facility] meloxicam 15 mg oral tablet 15 mg, 1 tab, PO, Daily, 30 tab, Substitution Allowed, TAB PO Active 12/04/2012 [facility] hydrochlorothiazide-triamterene 25 mg-37.5 mg oral capsule 1 cap, PO, Daily, 30 cap, Substitution Allowed, Maintenance, CAP PO Active 12/04/2012 [facility] amLODipine 5 mg oral tablet 5 mg, 1 tab, PO, Daily, 30 tab, Substitution Allowed, TAB PO Active 12/04/2012 [facility] Bystolic 10 mg oral tablet 10 mg, 1 tab, PO, Daily, 30 tab, Substitution Allowed, TAB PO Active 12/04/2012 [facility] atorvastatin 20 mg oral tablet 20 mg, 1 tab, PO, Daily, 30 tab, Substitution Allowed, TAB PO Active 12/04/2012 [facility] Diovan 320 mg oral tablet 320 mg, 1 tab, PO, Daily, 90 tab, Substitution Allowed, TAB PO Active 12/04/2012 [facility] lansoprazole 30 mg oral delayed release capsule 30 mg, 1 cap, PO, Daily, 30 cap, Substitution Allowed PO Active 12/04/2012 [facility] Amlodipine Besylate 5 Mg Tablet Daily Active [facility] Aspirin 81 Mg Tablet Daily Active [facility] Atorvastatin Calcium (Lipitor) 20 Mg Tablet Bedtime Active [facility] Dapagliflozin Daily Active [facility] Levofloxacin (Levaquin) 500 Mg Tablet Daily Active [facility] Meclizine Hcl 12.5 Mg Tablet Three Times A Day as needed for Dizziness Active [facility] Meloxicam 15 Mg Tablet Daily Active [facility] Metformin Hcl 500 Mg Tablet Bedtime Active [facility] Nebivolol Hcl (Bystolic) 10 Mg Tablet Daily Active [facility] Pantoprazole Sodium (Protonix) 40 Mg Tablet.dr Daily Active [facility] Triamterene/Hydrochlorothiazid (Triamterene-Hctz 37.5-25 Mg Cp) 1 Each Capsule Daily Active [facility] Allergies, Adverse Reactions, Alerts Substance Category Reaction Severity Reaction type Status Date Reported Comments Source Penicillin RASH Mild Allergy to Substance Active 04/09/2012 [facility] penicillins Assertion Drug allergy Active [facility] Immunizations No Data Provided for This Section Results Order Name Results Value Reference Range Date Interpretation Comments Source Capillary blood glucose measurement by glucometer (mass/volume) Capillary blood glucose measurement by glucometer (mass/volume) 172 70 - 120 07/10/2017 [facility] Automated blood basophil count (count/volume) Automated blood basophil count (count/volume) 0.0 0.0 - 0.1 07/09/2017 [facility] Automated blood basophil count as percentage of total leukocytes Automated blood basophil count as percentage of total leukocytes 0.1 0.0 - 1.0 07/09/2017 [facility] Automated blood eosinophil count Automated blood eosinophil count 0.2 0.0 - 0.4 07/09/2017 [facility] Automated blood eosinophil count as percentage of total leukocytes Automated blood eosinophil count as percentage of total leukocytes 2.3 0.0 - 6.0 07/09/2017 [facility] Automated blood hematocrit (volume fraction) Automated blood hematocrit (volume fraction) 38.4 38.2 - 49.6 07/09/2017 [facility] Automated blood lymphocyte count as percentage ot total leukocytes Automated blood lymphocyte count as percentage ot total leukocytes 11.8 18.0 - 39.1 07/09/2017 [facility] Automated blood monocyte count as percentage of total leukocytes Automated blood monocyte count as percentage of total leukocytes 12.0 4.4 - 11.3 07/09/2017 [facility] Automated blood neutrophil count Automated blood neutrophil count 5.5 2.1 - 6.9 07/09/2017 [facility] Automated blood platelet count (count/volume) Automated blood platelet count (count/volume) 192 140 - 360 07/09/2017 [facility] Automated blood segmented neutrophil count as percentage of total leukocytes Automated blood segmented neutrophil count as percentage of total leukocytes 73.5 38.7 - 80.0 07/09/2017 [facility] Automated erythrocyte mean corpuscular hemoglobin (mass per erythrocyte) Automated erythrocyte mean corpuscular hemoglobin (mass per erythrocyte) 27.7 28 - 32 07/09/2017 [facility] Automated erythrocyte mean corpuscular hemoglobin concentration measurement (mass/volume) Automated erythrocyte mean corpuscular hemoglobin concentration measurement (mass/volume) 32.6 31 - 35 07/09/2017 [facility] Automated erythrocyte mean corpuscular volume Automated erythrocyte mean corpuscular volume 85.1 81 - 99 07/09/2017 [facility] Blood erythrocytes automated count (number/volume) Blood erythrocytes automated count (number/volume) 4.51 4.3 - 5.7 07/09/2017 [facility] Blood hemoglobin measurement (moles/volume) Blood hemoglobin measurement (moles/volume) 12.5 14.0 - 18.0 07/09/2017 [facility] Blood leukocytes automated count (number/volume) Blood leukocytes automated count (number/volume) 7.47 4.8 - 10.8 07/09/2017 [facility] Blood lymphocytes count (number/volume) Blood lymphocytes count (number/volume) 0.9 1.0 - 3.2 07/09/2017 [facility] Blood monocytes automated count (number/volume) Blood monocytes automated count (number/volume) 0.9 0.2 - 0.8 07/09/2017 [facility] Estimated glomerular filtration rate (GFR) determination Estimated glomerular filtration rate (GFR) determination 50 60 07/09/2017 [facility] Glucose measurement Glucose measurement 142 74 - 118 07/09/2017 [facility] Plasma globulin measurement (mass/volume) Plasma globulin measurement (mass/volume) 3.1 2.3 - 3.5 07/09/2017 [facility] Serum or plasma alanine aminotransferase measurement (enzymatic activity/volume) Serum or plasma alanine aminotransferase measurement (enzymatic activity/volume) 23 0 - 55 07/09/2017 [facility] Serum or plasma albumin measurement (mass/volume) Serum or plasma albumin measurement (mass/volume) 3.3 3.5 - 5.0 07/09/2017 [facility] Serum or plasma albumin/globulin mass ratio Serum or plasma albumin/globulin mass ratio 1.1 0.8 - 2.0 07/09/2017 [facility] Serum or plasma alkaline phosphatase measurement (enzymatic activity/volume) Serum or plasma alkaline phosphatase measurement (enzymatic activity/volume) 65 40 - 150 07/09/2017 [facility] Serum or plasma anion gap Serum or plasma anion gap 12.7 8 - 16 07/09/2017 [facility] Serum or plasma calcium measurement (mass/volume) Serum or plasma calcium measurement (mass/volume) 8.5 8.4 - 10.2 07/09/2017 [facility] Serum or plasma carbon dioxide, total measurement (moles/volume) Serum or plasma carbon dioxide, total measurement (moles/volume) 22 22 - 29 07/09/2017 [facility] Serum or plasma chloride measurement (moles/volume) Serum or plasma chloride measurement (moles/volume) 108 98 - 107 07/09/2017 [facility] Serum or plasma creatinine measurement (mass/volume) Serum or plasma creatinine measurement (mass/volume) 1.46 0.72 - 1.25 07/09/2017 [facility] Serum or plasma potassium measurement (moles/volume) Serum or plasma potassium measurement (moles/volume) 3.7 3.5 - 5.1 07/09/2017 [facility] Serum or plasma protein measurement (mass/volume) Serum or plasma protein measurement (mass/volume) 6.4 6.5 - 8.1 07/09/2017 [facility] Serum or plasma sodium measurement (moles/volume) Serum or plasma sodium measurement (moles/volume) 139 136 - 145 07/09/2017 [facility] Serum or plasma total bilirubin measurement (mass/volume) Serum or plasma total bilirubin measurement (mass/volume) 1.4 0.2 - 1.2 07/09/2017 [facility] Serum or plasma urea nitrogen measurement (mass/volume) Serum or plasma urea nitrogen measurement (mass/volume) 18 7 - 26 07/09/2017 [facility] Serum or plasma urea nitrogen/creatinine mass ratio Serum or plasma urea nitrogen/creatinine mass ratio 12 6 - 25 07/09/2017 [facility] Red Cell Distribution Width 15.0 11.7 - 14.4 07/09/2017 [facility] IM GRANULOCYTES % 0.3 0.0 - 1.0 07/09/2017 [facility] Absolute Immature Granulocyte (auto 0.02 0 - 0.1 07/09/2017 [facility] Aspartate Amino Transf (AST/SGOT) 19 5 - 34 07/09/2017 [facility] Activated partial thromboplastin time (aPTT) in platelet poor plasma bycoagulation assay Activated partial thromboplastin time (aPTT) in platelet poor plasma bycoagulation assay 31.3 23.8 - 35.5 07/08/2017 [facility] INR in Platelet poor plasma by Coagulation assay INR in Platelet poor plasma by Coagulation assay 1.07 07/08/2017 [facility] Prothrombin time (PT) in platelet poor plasma by coagulation assay Prothrombin time (PT) in platelet poor plasma by coagulation assay 13.1 11.9 - 14.5 07/08/2017 [facility] Serum or plasma amylase measurement (enzymatic activity/volume) Serum or plasma amylase measurement (enzymatic activity/volume) 29 25 - 125 07/08/2017 [facility] Serum or plasma lipase measurement (enzymatic activity/volume) Serum or plasma lipase measurement (enzymatic activity/volume) 72 8 - 78 07/08/2017 [facility] Automated urine sediment leukocyte count by microscopy (number/high power field) Automated urine sediment leukocyte count by microscopy (number/high power field) <10 0 - 5 07/08/2017 [facility] Bacteria detection in urine sediment by light microscopy Bacteria detection in urine sediment by light microscopy RARE NONE 07/08/2017 [facility] Epithelial cells detection in urine sediment by light microscopy Epithelial cells detection in urine sediment by light microscopy RARE NONE 07/08/2017 [facility] Erythrocytes detection in urine sediment by light microscopy Erythrocytes detection in urine sediment by light microscopy <50 0 - 5 07/08/2017 [facility] Specific gravity of Urine by Test strip Specific gravity of Urine by Test strip 1.025 1.010 - 1.025 07/08/2017 [facility] Urine clarity Urine clarity CLEAR CLEAR 07/08/2017 [facility] Urine color determination Urine color determination YELLOW YELLOW 07/08/2017 [facility] Urine erythrocytes detection Urine erythrocytes detection 2+ NEGATIVE 07/08/2017 [facility] Urine glucose detection Urine glucose detection 2+ NEGATIVE 07/08/2017 [facility] Urine ketones detection by automated test strip Urine ketones detection by automated test strip NEGATIVE NEGATIVE 07/08/2017 [facility] Urine leukocyte esterase detection by dipstick Urine leukocyte esterase detection by dipstick NEGATIVE NEGATIVE 07/08/2017 [facility] Urine nitrite detection Urine nitrite detection NEGATIVE NEGATIVE 07/08/2017 [facility] Urine pH measurement by automated test strip Urine pH measurement by automated test strip 5 5 - 7 07/08/2017 [facility] Urine protein measurement by test strip (mass/volume) Urine protein measurement by test strip (mass/volume) 1+ NEGATIVE 07/08/2017 [facility] Urine total bilirubin measurement (mass/volume) Urine total bilirubin measurement (mass/volume) NEGATIVE NEGATIVE 07/08/2017 [facility] Urine urobilinogen measurement by test strip (mass/volume) Urine urobilinogen measurement by test strip (mass/volume) 0.2 0.2 - 1 07/08/2017 [facility] URINALYSIS UA Color Sharon 12/09/2012 NA [facility] URINALYSIS UA RBC >182 0 - 2 12/09/2012 [facility] URINALYSIS UA Sq Epi Occasional /LPF *NA* (12/09/2012 13:30:00) Few 12/09/2012 NA [facility] URINALYSIS UA WBC 9 0 - 5 12/09/2012 HI [facility] URINALYSIS UA Turbidity Clear (12/09/2012 13:30:00) Clear 12/09/2012 Normal [facility] URINALYSIS UA Protein Negative mg/dL (12/09/2012 13:30:00) Negative 12/09/2012 Normal [facility] URINALYSIS UA pH 5.0 5.0 - 8.0 12/09/2012 Normal [facility] URINALYSIS UA Spec Grav 1.015 <=1.030 12/09/2012 Normal [facility] URINALYSIS UA Blood Large *ABN* (12/09/2012 13:30:00) Negative 12/09/2012 ABN [facility] URINALYSIS UA Urobilinogen 2.0 0.1 - 1.0 12/09/2012 [facility] URINALYSIS UA Nitrite Positive *ABN* (12/09/2012 13:30:00) Negative 12/09/2012 ABN [facility] URINALYSIS UA Leuk Est Negative (12/09/2012 13:30:00) Negative 12/09/2012 Normal [facility] URINALYSIS UA Glucose Negative mg/dL *NA* (12/09/2012 13:30:00) Negative 12/09/2012 [place] [facility] URINALYSIS UA Ketones Negative mg/dL *NA* (12/09/2012 13:30:00) Negative 12/09/2012 [facility] URINALYSIS UA Bili Negative *NA* (12/09/2012 13:30:00) Negative 12/09/2012 [facility] Microbiology Culture: Urine 12/09/2012 [facility] CHEMISTRY eGFR 78 12/04/2012 NA <sup>1</sup>Result [...] should be multiplied by the estimated BMI. [facility] CHEMISTRY CO2 29 24 - 32 12/04/2012 Normal [facility] CHEMISTRY Creatinine Lvl 1.1 0.5 - 1.4 12/04/2012 Normal [facility] CHEMISTRY Glucose Lvl 175 70 - 99 12/04/2012 HI <sup>2</sup>Interpretive Data: Adult reference range values reflect the clinical guidelines
of the [place] [employer]. [facility] CHEMISTRY BUN 15 7 - 22 12/04/2012 Normal [facility] CHEMISTRY Calcium Lvl 8.7 8.5 - 10.5 12/04/2012 Normal [facility] CHEMISTRY Potassium Lvl 3.9 3.5 - 5.1 12/04/2012 Normal [facility] CHEMISTRY Sodium Lvl 144 135 - 145 12/04/2012 Normal [facility] CHEMISTRY Chloride Lvl 107 95 - 109 12/04/2012 Normal [facility] CHEMISTRY AGAP 11.9 10.0 - 20.0 12/04/2012 Normal [facility] HEMATOLOGY Hgb 11.7 14.0 - 18.0 12/04/2012 LOW [facility] HEMATOLOGY MCV 83.6 80.0 - 94.0 12/04/2012 Normal [facility] HEMATOLOGY Hct 36.1 42.0 - 54.0 12/04/2012 LOW [facility] HEMATOLOGY RDW 14.2 11.5 - 14.5 12/04/2012 Normal [facility] HEMATOLOGY Platelet 217 133 - 450 12/04/2012 Normal [facility] HEMATOLOGY MPV 8.7 7.4 - 10.4 12/04/2012 Normal [facility] HEMATOLOGY RBC 4.32 4.70 - 6.10 12/04/2012 LOW [facility] HEMATOLOGY MCHC 32.3 32.0 - 36.0 12/04/2012 Normal [facility] HEMATOLOGY MCH 27.0 27.0 - 31.0 12/04/2012 Normal [facility] HEMATOLOGY WBC 7.0 3.7 - 10.4 12/04/2012 Normal [facility] Segs-Bands # 5.0 1.5 - 8.1 12/04/2012 Normal [facility] Basophils 0.2 0.0 - 1.0 12/04/2012 Normal [facility] Eosinophils # 0.1 0.0 - 0.5 12/04/2012 Normal [facility] Monocytes # 0.6 0.0 - 0.8 12/04/2012 Normal [facility] Lymphocytes # 1.2 1.0 - 5.5 12/04/2012 Normal [facility] Segs 72.1 45.0 - 75.0 12/04/2012 Normal [facility] Eosinophils 2.1 0.0 - 4.0 12/04/2012 Normal [facility] Monocytes 8.7 2.0 - 12.0 12/04/2012 Normal [facility] Lymphocytes 16.9 20.0 - 40.0 12/04/2012 LOW [facility] Basophils # 0.0 0.0 - 0.2 12/04/2012 Normal [facility] PTT 30.0 22.9 - 35.8 12/04/2012 Normal <sup>4</sup>Interpretive Data: Heparin Therapeutic Range: 57 - 92 Seconds [facility] PT 12.8 12.0 - 14.7 12/04/2012 Normal [facility] INR 0.97 0.85 - 1.17 12/04/2012 Normal <sup>3</sup>Interpretive Data: RECOMMENDED RANGES FOR PROTIME INR:
2.0-3.0 for most medical and surgical thromboembolic states.
2.5-3.5 for artificial heart valves and recurrent embolism.

INR SHOULD BE USED ONLY FOR PATIENTS ON STABLE ANTICOAGULANT THERAPY. [facility] Pathology Reports No Data Provided for This Section Diagnostic Reports Report Value Date Source Shoulder w contrast MRI EXAM: MR ARTHROGRAM RIGHT SHOULDER DATE: 02/12/2018 10:01 AM CAM MAKER INDICATION: - M25.511 Pain in right shoulder [...] FOR MR ARTHROGRAM DATE: 02/12/2018 9:20 AM CAM MAKER INDICATION: - M25.511 Pain in right shoulder [...] ureteral stent in good position. SL:13 12/11/2012 [facility] Kidney pyelogram retrograde RETROGRADE PYELOGRAPHY COMPARISON: None IMPRESSION: Multiple fluoroscopic spot radiographs are submitted, demonstrating bilateral retrograde pyelography. Refer to the operating clinician's report for further discussion. SL: 13 12/04/2012 [facility] Consultation Notes No Data Provided for This Section Discharge Summaries No Data Provided for This Section History and Physicals No Data Provided for This Section Vital Signs Vital Sign Value Date Comments Source Systolic (mm Hg) 156 12/11/2012 [facility] Diastolic (mm Hg) 55 12/11/2012 [facility] Diastolic (mm Hg) 72 12/11/2012 [facility] Systolic (mm Hg) 150 12/11/2012 [facility] Respitory Rate 17 12/11/2012 [facility] Systolic (mm Hg) 135 12/11/2012 [facility] Diastolic (mm Hg) 65 12/11/2012 [facility] Respitory Rate 14 12/11/2012 [facility] Respitory Rate 18 12/11/2012 [facility] Heart Rate 66 12/11/2012 [facility] Temperature Oral (F) 98.3 F 12/09/2012 [facility] Heart Rate 74 12/09/2012 [facility] Height 177.8 cm 12/09/2012 [facility] Weight 193.182 12/09/2012 [facility] Diastolic (mm Hg) 70 12/04/2012 [facility] Systolic (mm Hg) 144 12/04/2012 [facility] Respitory Rate 19 12/04/2012 [facility] Systolic (mm Hg) 146 12/04/2012 [facility] Diastolic (mm Hg) 75 12/04/2012 [facility] Systolic (mm Hg) 145 12/04/2012 [facility] Diastolic (mm Hg) 63 12/04/2012 [facility] Respitory Rate 16 12/04/2012 [facility] Respitory Rate 18 12/04/2012 [facility] Heart Rate 73 12/04/2012 [facility] Temperature Oral (F) 98.3 F 12/04/2012 [facility] Weight 193.182 12/04/2012 [facility] Height 177.8 cm 12/04/2012 [facility] Encounters Location Location Details Encounter Type Encounter Number Reason For Visit Attending Provider ADM Date DC Date Status Source [facility] DS [id number] [facility] 12/04/2012 12/04/2012 Discharged [facility] DS [id number] [facility] 12/11/2012 12/11/2012 Discharged [facility] - [facility] [id number] Baltazar Zendejasz 06/16/2015 06/17/2015 FIONA Christy Discharged Inpatient [id number] GISELA CARABALLO MD 07/09/2017 07/10/2017 [facility] Outpatient Imaging [facility] [id number] Oswald Wyatt 02/12/2018 02/13/2018 [facility] [place] [facility] Patients [id number] Oswald Wyatt 04/07/2018 05/07/2018 [facility] [id number] Oswald Wyatt 05/07/2018 06/06/2018 [facility] Procedures Procedure Code Date Perfomer Comments Source Injection procedure for shoulder arthrography or enhanced CT/MRI shoulder arthrography 43828 02/12/2018 FIONA Ritter Cystoscopy with retrograde pyelography [id number] 07/10/[address] [place] [facility] CT of abdomen and pelvis without contrast [id number] 07/08/2017 JOSUE [facility] Cystourethroscopy, with insertion of indwelling ureteral stent (eg, De Leon or double- J type) [id number] 12/11/2012 [facility] Cystourethroscopy, with ureteroscopy and/or pyeloscopy; with removal or manipulation of calculus (ureteral catheterization is included) [id number] 12/11/2012 [facility] Transurethral Removal of Obstruction from Ureter and Renal Pelvis [id number] 12/11/2012 [facility] Ureteral Catheterization [id number] 12/11/2012 [facility] Shoulder joint operations<sup>1</sup> [id number] 03/10/2010 SLAP tear [facility] Shoulder joint operations<sup>1</sup> [id number] 03/10/2010 SLAP tear FIONA Ritter 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 [id number] 03/10/2007 [facility] [place] 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 [id number] 03/10/[facility] [id number] [facility] Cardiac catheterization [id number] [facility] Cholecystectomy [id number] [facility] 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 approach <sup>1</sup> [id number] 1bone graft & metal plate [facility] Lithotripsy 917953809 [facility] Shoulder joint operations [id number] [facility] Stent placement [id number] [facility] 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 [id number] [place] Ablation [id number] [facility] [place] Arthroplasty of knee [id number] [facility] [place] Cardiac catheterization [id number] [facility] [place] Cholecystectomy [id number] [facility] [place] 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 approach<sup>2</sup> 138111212 bone graft & metal plate [facility] [place] Lithotripsy [id number] [facility] [place] Stent placement [id number] [facility] [place] Ablation [id number] [facility] [place] Arthroplasty of knee [id number] [facility] [place] Cardiac catheterization [id number] [facility] [place] Cholecystectomy [id number] [facility] [place] 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 approach<sup>2</sup> 599054312 bone graft & metal plate [facility] [place] Lithotripsy [id number] [facility] [place] Stent placement [id number] [facility] [place] Ablation [id number] [facility] [place] Cardiac catheterization [id number] [facility] [place] Cholecystectomy [id number] [facility] [place] 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 approach<sup>1</sup> [id number] bone graft & metal plate [facility] [place] Lithotripsy [id number] [facility] [place] Shoulder joint operations [id number] [facility] [place] Stent placement [id number] [facility] [place] 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 [id number] [facility] [place] Assessment and Plan No Data Provided for This Section Plan of Care Plan of Care Date Source Discharge Date 07/10/17 12:02pm Disposition HOME, SELF-CARE Instructions/Education Provided Diabetes and Diet Heart Healthy Diet Kidney Stones Post Operative Pain Prescriptions See Medication Section Referrals CARLOS COX MD (Urology) Order Date: 1-2 Weeks Entered Date: 07/10/2017 11:20am Address: [facility] [place] [place] [address] Additional Instructions/Education Cardiac diet Activity as tolerated Take medications as prescribed Follow up with 1-2 weeks Follow up with PCP 1 week 07/10/2017 [facility] Social History Social History Date Source Social [...] 07/08/2017 10:40am Not Applicable Not Applicable 07/10/2017 [facility] No data available for this section 06/17/2015 DANIEL Christy Family History No Data Provided for This Section Advance Directives Order Name Results Value Date Source Advance Directives Advance Directives Directive Response Recorded Date/Time Does the patient have an advance directive? No 07/08/17 10:40am If yes, is advance directive on file with [facility]? No 07/08/17 10:40am If not on file with [facility] will patient provide a copy? No 07/08/17 10:40am Do you have a Directive to Physician? No 07/08/17 6:18am Do you have a Medical Power of [place]? No 07/08/17 6:18am Do you have an [...] rights and responsibilities? Yes 07/08/17 6:18am 07/10/2017 [facility] Functional Status No Data Provided for This Section
[2018-09-18 11:35] VITALS: BP 143/86
--- NOTE | 2018-09-18 11:47 | Operative Report ---
DATE OF PROCEDURE: 09/18/2018 SURGEON: Louis Quigley MD PREOPERATIVE DIAGNOSES: 1. Right nephroureteral stent. 2. Right nephrostomy. 3. Right hydronephrosis. 4. Right ureteral calculus. POSTOPERATIVE DIAGNOSIS: Passed ureteral calculus. PROCEDURES: 1. Removal of a right nephrostomy tube. 2. Right-sided ureteroscopy (entirely separate procedure for hydronephrosis). 3. Supervision of fluoroscopy for ureteroscopy and dilation portion. 4. Supervision of fluoroscopy for nephrostomy removal portion. 5. Interpretation of retrograde pyelography. ANESTHESIA: General. ESTIMATED BLOOD LOSS: Minimal. COMPLICATIONS: None. INDICATIONS: Mr. Salmeron is a very pleasant 53-year-old male, who had a nephrostomy tube placed at an outside hospital secondary to sepsis and an 8 mm obstructing ureteral calculus. He had undergone a shock wave lithotripsy, had still fragments remaining of 4 x 5 mm in the mid ureter, he now presents for definitive removal. PROCEDURE IN DETAIL: After informed consent was obtained, the patient was taken to the operative suite, he was placed supine on the operating table, underwent general anesthesia by Anesthesia Service. He was placed in the dorsal lithotomy position and sterilely prepped and draped in standard fashion for cystoscopy. A 21-Prydeinig cystoscope was inserted per urethra and normal urethra was noted. Panendoscopy of bladder revealed no tumors and no stones. Large stent seen extruding through the right ureteral orifice. Right ureteral orifice was catheterized with a guidewire, it was seen to advance to the level of the renal pelvis on fluoroscopy. The nephrostomy was then cut to the level of the skin and slowly withdrawn trying to uncoil under fluoroscopy. The entire nephroureteral stent was then removed and the rigid ureteroscope was advanced to the level of the renal pelvis. There were several areas of mucus seen inside. The entire ureter was capacious, but no ureteral stone seen. A retrograde pyelogram was performed with the ureteroscope. Of note, prior to the procedure, there was calcifications seen in what appeared to be the right lower pole with retrograde pyelogram, this was clearly an intraparenchymal calcification in the right lower pole of the kidney, it is not in the collecting system. At this time with no other stones obstructing or otherwise seen, the ureteroscope was removed, the guidewire was removed, the bladder was drained, and the patient was awakened from anesthesia and transferred to the recovery room in excellent condition with no untoward effects noted. Supervision of fluoroscopy and interpretation of retrograde pyelography: I was present for the entire procedure and supervised fluoroscopy. There was no radiologist present. Attention was turned to the right ureteral orifice, which was catheterized with ureteroscope and retrograde pyelogram was performed revealing delicate ureter, delicate pelvocaliceal system, there was calcification noted in the right lower pole, which is intraparenchymal, not the collecting system. Louis Quigley MD ES/MODL /[id number] cc: Baltazar Guerrero DO
== END | disposition home or self-care (01) ==
LOC: OR 08:22
PROVIDERS: ATTEND Urology
DX: N20.1 Calculus of ureter (principal); Z46.6 Encounter for fitting and adjustment of urinary device; N13.39 Other hydronephrosis; N39.0 Urinary tract infection, site not specified; N40.1 Benign prostatic hyperplasia with lower urinary tract symptoms; N13.8 Other obstructive and reflux uropathy; N20.0 Calculus of kidney; E66.01 Morbid (severe) obesity due to excess calories; E11.9 Type 2 diabetes mellitus without complications; K21.9 Gastro-esophageal reflux disease without esophagitis; I10 Essential (primary) hypertension; Z88.0 Allergy status to penicillin; Z79.4 Long term (current) use of insulin; Z79.84 Long term (current) use of oral hypoglycemic drugs; Z79.82 Long term (current) use of aspirin; Z68.43 Body mass index [BMI] 50.0-59.9, adult; Z84.1 Family history of disorders of kidney and ureter
CPT/HCPCS: 36415; 50389; 52351; 74420; 82948; C1758; J1100; J1580; J2001; J2250; J2405; J2704; J2765; J3490; Q9967; J3010

== ENCOUNTER → 2018-11-27 | Outpatient (CLI) | payer BC ==
[~2018-11-27] MED LIST changes: -DEXAMETHASONE SOD PHOS INJ 4 MG/ML VIAL ONE; -FAMOTIDINE 20 MG/2 ML VIAL IV ONE; -FENTANYL CITRATE/PF 100MCG/2 ML INJ ONE; -GENTAMICIN 120MG/NS 100ML 100 ML ONE; -GLYCOPYRROLATE INJ 1MG/ 5 ML SYR ONE; -IOPAMIDOL 610MG/1ML 300 MG/ML VIAL IV ONE; -LIDOCAINE HCL 2% LOCAL INJ 5 ML SDV VIAL INJ ONE; -METOCLOPRAMIDE HCL 10 MG/2ML VIAL ONE; -MIDAZOLAM HCL 2 MG/2 ML VIAL ONE; -ONDANSETRON HCL INJ 2MG/ML 2ML 2 MG/ML VIAL ONE; -PROPOFOL IV EMULSION 10 MG/ML 20 ML VIAL ONE; -ROCURONIUM BROMIDE 10 MG/ML 5ML VIAL ONE; -SCOPOLAMINE 1.5 MG PATCH ONE; -SEVOFLURANE INHAL SOLN 250 ML PEN BTL ONE; -SUCCINYLCHOLINE 200 MG/10 ML SYR ONE
--- NOTE | 2018-11-27 11:46 | Diagnostic Imaging Report ---
KUB on 4 radiographs Clinical indication: Calculus Comparison: 08/13/2018 Findings: Bilateral renal calculi are again identified in the lower poles measuring 8 mm on the right and 9 mm on the left. The percutaneous drain ureteral stent has been removed. The bowel gas pattern is nonobstructed. Cholecystectomy clips are seen in the right upper quadrant. Impression: Bilateral renal calculi as described above. Signed by: Brett Martin MD on 11/27/2018 11:43 AM
== END ==
LOC: RAD 10:33
PROVIDERS: ATTEND Urology
DX: N20.0 Calculus of kidney (principal)
CPT/HCPCS: 74018

== ENCOUNTER → 2019-02-15 | Outpatient (CLI) | payer BC ==
[~2019-02-15] MED LIST changes: +AMLODIPINE PO; +MECLIZINE HCL25 MG PO; +TYLENOL WITH C1 EACH PO; +VALSARTAN PO
--- NOTE | 2019-02-15 10:56 | Diagnostic Imaging Report ---
Abdomen, one view Clinical indication: Renal calculus Comparison: 11/27/2018 Findings: Bilateral renal calculi are present. In the right kidney there is a 7 mm calculus overlying the midpole and a 8 mm calculus overlying the lower pole. On the left there are 2 calculi measuring 8 mm and 6 mm overlying the lower pole. Patient is status post cholecystectomy. Impression: Bilateral renal calculi. Signed by: Brett Martin MD on 02/15/2019 10:52 AM
== END ==
LOC: RAD 10:11
PROVIDERS: ATTEND Urology
DX: N20.0 Calculus of kidney (principal)
CPT/HCPCS: 74018

== ENCOUNTER 2019-02-16 11:56 | Inpatient (IN) | payer BC ==
[~2019-02-16] VITALS: Ht 180.3 cm; Wt 171.9 kg
[~2019-02-16 11:56] MED LIST changes: -AMLODIPINE PO; -MECLIZINE HCL25 MG PO; -TYLENOL WITH C1 EACH PO; -VALSARTAN PO
[2019-02-16] MEDS ORDERED: SODIUM CHLORIDE 0.9% 1000ML 1,000 ML IV STA ×2 (12:39→13:59)
[2019-02-16] MEDS ORDERED: KETOROLAC TROMETHAMINE 30 MG/ML VIAL IV STA (12:39)
[2019-02-16] MEDS ORDERED: CEFTRIAXONE SOD 1 GM/NS 50 ML 50 ML IV STA (12:39)
[2019-02-16] MEDS ORDERED: ONDANSETRON HCL INJ 2MG/ML 2ML 2 MG/ML VIAL IV STA (12:39)
[2019-02-16] MEDS ORDERED: TAMSULOSIN HCL 0.4 MG CAP PO SCH (13:00)
[2019-02-16 13:15] LABS: BASOPHILS # (AUTO) 0.1 (0.0-0.1); BASOPHILS % 0.3 % (0.0-1.0); EOSINOPHILS # (AUTO) 0.2 (0.0-0.4); EOSINOPHILS % 1.3 % (0.0-6.0); HEMATOCRIT 46.1 % (38.2-49.6); HEMOGLOBIN 14.5 g/dL (14.0-18.0); LYMPHOCYTES # (AUTO) 1.7 (1.0-3.2); LYMPHOCYTES % 10.8 % (18.0-39.1); MEAN CORPUSCULAR HEMOGLOBIN 26.6 pg (28-32); MEAN CORPUSCULAR HGB CONC 31.5 g/dL (31-35); MEAN CORPUSCULAR VOLUME 84.4 fL (81-99); MONOCYTES # (AUTO) 1.1 (0.2-0.8); MONOCYTES % 6.9 % (4.4-11.3); NEUTROPHILS # (AUTO) 12.6 (2.1-6.9); NEUTROPHILS % 80.3 % (38.7-80.0); PLATELET COUNT 255 x10e3/uL (140-360); RED BLOOD COUNT 5.46 x10e6/uL (4.3-5.7); RED CELL DISTRIBUTION WIDTH 14.6 % (11.7-14.4)
[2019-02-16 13:29] LABS: ALBUMIN 4.5 g/dL (3.5-5.0); ALBUMIN/GLOBULIN RATIO 1.4 (0.8-2.0); CALCIUM 10.1 mg/dL (8.4-10.2); CREATININE, SERUM 1.87 mg/dL (0.72-1.25); MAGNESIUM 1.8 MG/DL (1.3-2.1)
[2019-02-16] MEDS ORDERED: ONDANSETRON HCL INJ 2MG/ML 2ML 2 MG/ML VIAL ONE (13:58)
[2019-02-16] MEDS ORDERED: KETOROLAC TROMETHAMINE 30 MG/ML VIAL ONE (13:58)
[2019-02-16] MEDS ORDERED: DEXAMETHASONE SOD PHOS INJ 4 MG/ML VIAL ONE (13:58)
[2019-02-16] MEDS ORDERED: LIDOCAINE HCL 2% LOCAL INJ 5 ML SDV VIAL INJ ONE (13:58)
[2019-02-16] MEDS ORDERED: DESFLURANE 240 ML BTL INH ONE (13:58)
[2019-02-16] MEDS ORDERED: PROPOFOL IV EMULSION 10 MG/ML 20 ML VIAL ONE (13:58)
--- NOTE | 2019-02-16 14:01 | Diagnostic Imaging Report ---
TECHNIQUE: CT of the abdomen and pelvis WITHOUT intravenous contrast and without oral contrast. Dose modulation, iterative reconstruction, and/or weight-based adjustment of the mA/kV was utilized to reduce the radiation dose to as low as reasonably achievable. INDICATION: ^STONE PROTOCOL ^[id number] ^1250 ^Y. COMPARISON: CT from 07/08/2017. FINDINGS: ABSENCE OF INTRAVENOUS CONTRAST DECREASES SENSITIVITY FOR DETECTION OF FOCAL LESIONS AND VASCULAR PATHOLOGY. LOWER THORAX: A left lower lobe calcified granuloma measures 0.4 cm. A right middle lobe calcified granuloma measures 0.7 cm. There are calcified lymph nodes in the right lower mediastinum and right perihilar region. Partially visualized coronary arterial calcifications. HEPATOBILIARY: Diffusely decreased attenuation of the enlarged liver. No focal hepatic lesions. Prior cholecystectomy. No biliary ductal dilatation. SPLEEN: 15 cm splenomegaly. PANCREAS: No focal masses or ductal dilatation. ADRENALS: No adrenal nodules. KIDNEYS/URETERS: No exophytic masses. A left lower pole nonobstructing renal stone measures 1 cm. Additional left lower pole renal stone measures 0.7 cm. Exophytic left lower pole renal cyst measures 0.9 cm. A nonobstructing right lower pole renal stone measures 0.8 cm. There is mild right hydronephrosis with prominent perinephric fat stranding. A right distal ureteral stone measures 1 cm. PELVIC ORGANS/BLADDER: Unremarkable. PERITONEUM/RETROPERITONEUM: No free air or fluid. LYMPH NODES: No lymphadenopathy. VESSELS: Unremarkable. GI TRACT: No distention or wall thickening. BONES AND SOFT TISSUES: Moderate degenerative disc changes at L3-L4. Mild degenerative disc changes throughout the rest of the visualized spine. IMPRESSION: 1. A right distal ureteral 1 cm stone results in mild hydronephrosis. There is significant right perinephric fat stranding which is likely reactive to the obstruction. 2. Diffuse fatty infiltration of the liver with hepatosplenomegaly. Signed by: Manuel Koehler JR, MD on 02/16/2019 1:58 PM
[2019-02-16 14:08] LABS: CLARITY,URINE SL CLOUDY (CLEAR); COLOR,URINE YELLOW (YELLOW); LEUKOCYTE ESTERASE ,URINE NEGATIVE (NEGATIVE); NITRITE,URINE NEGATIVE (NEGATIVE)
[2019-02-16 14:09] LABS: BILIRUBIN,URINE NEGATIVE (NEGATIVE); KETONES,URINE NEGATIVE (NEGATIVE); PROTEIN,URINE DIPSTICK TRACE (NEGATIVE); URINE UROBILINOGEN 0.2 mg/dL (0.2 - 1)
[2019-02-16 14:30] LABS: BACTERIA,URINE RARE /HPF; WBC,URINE (MAN) 21-50 /HPF (0-5)
[2019-02-16] MEDS ORDERED: MORPHINE SULFATE INJ 4 MG/ML INJ 1ML IV PRN (15:00)
[2019-02-16 16:19] VITALS: BP 169/79
[2019-02-16 16:31] VITALS: BP 169/79
[2019-02-16] MEDS ORDERED: AMLODIPINE PO (17:07)
[2019-02-16] MEDS ORDERED: VALSARTAN PO (17:07)
[2019-02-16] MEDS ORDERED: MECLIZINE HCL25 MG PO (17:08)
[2019-02-16] MEDS ORDERED: NON-FORMULARY MEDICATION (Meclizine Hcl 25 MG) PO SCH (17:15)
[2019-02-16] MEDS ORDERED: MECLIZINE HCL 12.5 MG TAB PO PRN (17:30)
[2019-02-16] MEDS: CEFTRIAXONE SOD 1 GM/NS 50 ML 50 ML IV SCH (17:35)
[2019-02-16] MEDS: SODIUM CHLORIDE 0.9% 1000ML 1,000 ML IV SCH (17:35)
[2019-02-16] MEDS: ONDANSETRON HCL INJ 2MG/ML 2ML 2 MG/ML VIAL IV PRN (18:20)
[2019-02-16] MEDS: HYDROMORPHONE 1MG/1ML INJ IV PRN (18:20)
--- NOTE | 2019-02-16 19:00 | NUR ---
RECEIVED PATIENT IN BEDSIDE REPORT. PATIENT RESTING IN BED. A&OX3. NO PAIN REPORTED AT THIS TIME. NO S&S OF DISTRESS NOTED. IV TO R AC 20 RUNNING NS @ 125ML/HR. EXPLAINED TO PATIENT IMPORTANCE OF STRAINING URINE, PATIENT STATED HE DOES THAT AT HOME AND IS FAMILIAR WITH THE PROCESS. EXPLAINED NPO AFTER MIDNIGHT, PATIENT VERBALIZED UNDERSTANDING. BED LOCKED IN LOWEST POSITION, SIDE RAILS UPX2, CALL LIGHT IN REACH.
[2019-02-16 20:00] VITALS: BP 107/53
[2019-02-16 20:04] VITALS: BP 107/53
[2019-02-16] MEDS: METFORMIN HCL 500 MG TAB CR PO SCH (21:01)
[2019-02-17] VITALS (10 sets, daily range): BP systolic 114–138; BP diastolic 53–90
[2019-02-17] MEDS: SODIUM CHLORIDE 0.9% 1000ML 1,000 ML IV SCH ×3 (02:30→22:20)
[2019-02-17] MEDS: ONDANSETRON HCL INJ 2MG/ML 2ML 2 MG/ML VIAL IV PRN ×3 (05:53→17:25)
[2019-02-17] MEDS: HYDROMORPHONE 1MG/1ML INJ IV PRN ×3 (05:53→21:30)
[2019-02-17 06:00] LABS: BASOPHILS % 0.2 % (0.0-1.0); EOSINOPHILS # (AUTO) 0.4 (0.0-0.4); EOSINOPHILS % 1.8 % (0.0-6.0); HEMATOCRIT 40.4 % (38.2-49.6); HEMOGLOBIN 12.8 g/dL (14.0-18.0); LYMPHOCYTES # (AUTO) 1.1 (1.0-3.2); LYMPHOCYTES % 5.6 % (18.0-39.1); MEAN CORPUSCULAR HEMOGLOBIN 26.9 pg (28-32); MEAN CORPUSCULAR HGB CONC 31.7 g/dL (31-35); MEAN CORPUSCULAR VOLUME 85.1 fL (81-99); MONOCYTES # (AUTO) 1.8 (0.2-0.8); NEUTROPHILS # (AUTO) 16.3 (2.1-6.9); NEUTROPHILS % 82.8 % (38.7-80.0); PLATELET COUNT 201 x10e3/uL (140-360); RED BLOOD COUNT 4.75 x10e6/uL (4.3-5.7); RED CELL DISTRIBUTION WIDTH 14.8 % (11.7-14.4)
--- NOTE | 2019-02-17 06:23 | NUR ---
GUNNAR COX TO ENSURE HE IS AWARE OF CONSULT, IT IS NOT LOGGED IN CONSULT LOG BOOK.
[2019-02-17 06:27] LABS: ALBUMIN 3.7 g/dL (3.5-5.0); ALBUMIN/GLOBULIN RATIO 1.2 (0.8-2.0); CALCIUM 8.9 mg/dL (8.4-10.2); CREATININE, SERUM 2.19 mg/dL (0.72-1.25)
[2019-02-17] MEDS ORDERED: IOPAMIDOL 300MG/ML 50ML INFUS..BTL IV ONE (07:02)
[2019-02-17] MEDS ORDERED: SCOPOLAMINE 1.5 MG PATCH ONE (07:29)
[2019-02-17] MEDS: FARXIGA 10 MG PO SCH (07:48)
[2019-02-17] MEDS ORDERED: AMLODIPINE PO SCH (09:00)
[2019-02-17] MEDS ORDERED: NON-FORMULARY MEDICATION (Meloxicam 15 MG) PO SCH (09:00)
[2019-02-17] MEDS ORDERED: VALSARTAN PO SCH (09:00)
[2019-02-17] MEDS: ATORVASTATIN 20 MG TAB PO SCH (09:16)
[2019-02-17] MEDS: MELOXICAM 7.5 MG TAB PO SCH (09:16)
[2019-02-17] MEDS: VALSARTAN 160 MG TAB PO SCH (09:16)
[2019-02-17] MEDS: PANTOPRAZOLE SOD 40 MG TABEC PO SCH (09:16)
[2019-02-17] MEDS: NEBIVOLOL 10 MG TAB PO SCH (09:16)
[2019-02-17] MEDS: AMLODIPINE BESYLATE 5 MG TAB PO SCH (09:16)
[2019-02-17] MEDS: TRIAMTERENE/HCTZ 37.5-25 MG TAB PO SCH (09:16)
[2019-02-17] MEDS ORDERED: FENTANYL CITRATE/PF 100MCG/2 ML INJ ONE (12:57)
[2019-02-17] MEDS ORDERED: MIDAZOLAM HCL 2 MG/2 ML VIAL ONE (12:57)
[2019-02-17] MEDS: CEFTRIAXONE SOD 1 GM/NS 50 ML 50 ML IV SCH (14:00)
--- NOTE | 2019-02-17 15:02 | Operative Report ---
DATE OF PROCEDURE: 02/17/2019 SURGEON: Louis Quigley MD PREOPERATIVE DIAGNOSES: 1. Right hydronephrosis. 2. Microscopic hematuria. POSTOPERATIVE DIAGNOSES: 1. Right hydronephrosis. 2. Microscopic hematuria. PROCEDURES: 1. Cystourethroscopy with left ureteral catheterization of left retrograde pyelogram (separate procedure for microscopic hematuria). 2. Cystourethroscopy insertion of right indwelling stent (entirely separate procedure for diagnosis of right hydronephrosis). 3. Supervision of fluoroscopy. 4. Interpretation of retrograde pyelography. ANESTHESIA: General. ESTIMATED BLOOD LOSS: Minimal. COMPLICATIONS: None. INDICATIONS: Mr. Salmeron is a very pleasant 54-year-old male patient, morbidly obese, multiple chronic kidney stones, now presents with acute sharp right-sided flank pain, 1-day history. He has had fevers and chills, and elevated white count of 19.7 thousand. He and I had a long discussion of alternatives risks, and benefits including doing nothing, stent placement, percutaneous nephrostomy. He wishes the options, alternatives, the risks, and benefits. He voiced explicit understanding that stent is a temporary indwelling device and it must be removed and failure to do so could lead to encrustation, infection, inflammation, atrophy, loss of kidney, and even . He elects to proceed. PROCEDURE IN DETAIL: After informed consent was obtained, the patient was taken to the operative suite, placed supine on the operating table. He underwent general anesthesia by Anesthesia Service. The patient was placed in dorsal lithotomy position, sterilely prepped and draped for cystoscopy. A 22.5-Hong Konger cystoscope inserted per urethra. Normal urethra was noted. Panendoscopy of the bladder revealed no tumors, no stones. Bilateral retrograde pyelogram was performed; left revealed a 7 mm lower pole stone, 8 mm x 10 mm left upper pole stone. The right kidney was slightly medially displaced. There was an 8 mm x 8 mm right lower pole stone seen. Over the mid right ureter there was an 8 x 10 mm ureteral stone with proximal hydronephrosis. Guidewire was inserted proximal to this. Hydronephrotic drip was seen as the 5-Hong Konger open-ended catheter was advanced at the level of renal pelvis. A ureteral stent was deployed with a coil in the renal pelvis and a coil in the bladder. The patient's bladder was drained. He was awakened from anesthesia and transported to the recovery room in excellent condition. Supervision of fluoroscopy and interpretation of retrograde pyelography: I was present for the entire procedure and supervised fluoroscopy. There was no radiologist present. Attention was turned towards the left and right ureters catheters of 5-Hong Konger open-ended catheter. In retrograde fashion, contrast was injected. On the left side revealing delicate ureters, delicate pelvocaliceal systems, 8 mm and 10 mm stones on the left side, on the right side 8 mm lower pole stone, 8 x 10 mm right mid to distal ureteral stone, overlying the sacrum. Postoperative views on the right revealed stent in adequate position. IMPRESSION: 1. Bilateral large renal calculi. 2. Right mid to distal ureteral calculus, proximal hydronephrosis, stent in adequate position. MD STEFFANY Forman/JUANITAL /[id number]
--- NOTE | 2019-02-17 19:00 | NUR ---
RECEIVED PATIENT IN BEDSIDE REPORT. PATIENT RESTING IN BED, STATES PAIN IS 8/10. IV INFILTRATED AT THIS TIME, REMOVED FROM R AC, CATHETER TIP INTACT, PRESSURE DRESSING APPLIED. WILL PROVIDE PAIN MEDS WHEN IV ACCESS IS AVAILABLE. NO OTHER COMPLAINTS. PATIENT VERBALIZED HE IS STRAINING URINE, HE IS FAMILIAR WITH PROCEDURE. BED LOCKED IN LOWEST POSITION, SIDE RAILS UPX2, CALL LIGHT IN REACH.
[2019-02-17] MEDS: METFORMIN HCL 500 MG TAB CR PO SCH (21:11)
[2019-02-18 00:14] VITALS: BP 112/52
[2019-02-18] MEDS: SODIUM CHLORIDE 0.9% 1000ML 1,000 ML IV SCH ×2 (00:35→07:49)
[2019-02-18 04:10] VITALS: BP 117/61
[2019-02-18 05:39] LABS: BASOPHILS % 0.1 % (0.0-1.0); EOSINOPHILS # (AUTO) 0.2 (0.0-0.4); EOSINOPHILS % 1.2 % (0.0-6.0); HEMATOCRIT 38.4 % (38.2-49.6); LYMPHOCYTES # (AUTO) 0.9 (1.0-3.2); LYMPHOCYTES % 5.5 % (18.0-39.1); MEAN CORPUSCULAR HGB CONC 31.3 g/dL (31-35); MEAN CORPUSCULAR VOLUME 86.3 fL (81-99); MONOCYTES # (AUTO) 1.3 (0.2-0.8); MONOCYTES % 7.9 % (4.4-11.3); NEUTROPHILS # (AUTO) 13.7 (2.1-6.9); NEUTROPHILS % 84.7 % (38.7-80.0); PLATELET COUNT 184 x10e3/uL (140-360); RED BLOOD COUNT 4.45 x10e6/uL (4.3-5.7)
[2019-02-18 06:01] LABS: ANION GAP 14.9 mmol/L (8-16); CALCIUM 9.1 mg/dL (8.4-10.2); CREATININE, SERUM 1.72 mg/dL (0.72-1.25); POTASSIUM 3.9 mmol/L (3.5-5.1)
[2019-02-18 07:38] VITALS: BP 132/66
[2019-02-18] MEDS: MELOXICAM 7.5 MG TAB PO SCH (07:47)
[2019-02-18] MEDS: HYDROMORPHONE 1MG/1ML INJ IV PRN (07:47)
[2019-02-18] MEDS: TRIAMTERENE/HCTZ 37.5-25 MG TAB PO SCH (07:47)
[2019-02-18] MEDS: ATORVASTATIN 20 MG TAB PO SCH (07:47)
[2019-02-18] MEDS: NEBIVOLOL 10 MG TAB PO SCH (07:47)
[2019-02-18] MEDS: ONDANSETRON HCL INJ 2MG/ML 2ML 2 MG/ML VIAL IV PRN (07:47)
[2019-02-18] MEDS: AMLODIPINE BESYLATE 5 MG TAB PO SCH (07:47)
[2019-02-18] MEDS: VALSARTAN 160 MG TAB PO SCH (07:47)
[2019-02-18] MEDS: PANTOPRAZOLE SOD 40 MG TABEC PO SCH (07:47)
[2019-02-18] MEDS: FARXIGA 10 MG PO SCH (08:27)
[2019-02-18 10:48] VITALS: BP 132/66
[2019-02-18] MEDS ORDERED: TYLENOL WITH C1 EACH PO (10:57)
[2019-02-18] MEDS ORDERED: LEVAQUIN500 MG PO (10:57)
== END 2019-02-18 12:05 | disposition home or self-care (01) | DRG 854 ==
LOC: ER 11:56 → ERHOLD 14:33 → MED/SURG3 16:13
PROC: 0T778ZZ Dilation of Left Ureter, Via Natural or Artificial Opening Endoscopic (ICD-10-PCS; 2019-02-17)
PROC: BT141ZZ Fluoroscopy of Kidneys, Ureters and Bladder using Low Osmolar Contrast (ICD-10-PCS; 2019-02-17)
PROC: 0T768DZ Dilation of Right Ureter with Intraluminal Device, Via Natural or Artificial Opening Endoscopic (ICD-10-PCS; principal; 2019-02-17 07:27)
DX: A41.9 Sepsis, unspecified organism (principal); N13.6 Pyonephrosis; N20.1 Calculus of ureter; Z68.43 Body mass index [BMI] 50.0-59.9, adult; N39.0 Urinary tract infection, site not specified; R31.29 Other microscopic hematuria; E11.9 Type 2 diabetes mellitus without complications; E66.01 Morbid (severe) obesity due to excess calories; I10 Essential (primary) hypertension; E78.5 Hyperlipidemia, unspecified; K21.9 Gastro-esophageal reflux disease without esophagitis
CPT/HCPCS: 36415; 74176; 74420; 80048; 80053; 81001; 82948; 83690; 83735; 85025; 87086; 87186; 99284; C1758; C2617; J0696; J1100; J1170; J1885; J2001; J2250; J2405; J3010; J7030

== ENCOUNTER → 2019-08-05 | Outpatient (CLI) | payer BC ==
[~2019-08-05] MED LIST changes: +AMLODIPINE PO; +FLOMAX0.4 MG PO; +LEVAQUIN750 MG PO; +MECLIZINE HCL25 MG PO; +TYLENOL WITH C1 EACH PO; +VALSARTAN PO; +ZOFRAN4 MG SL
--- NOTE | 2019-08-05 15:28 | Diagnostic Imaging Report ---
Exam: KUB - 2 views Indication: Renal calculus Comparison: KUB of 03/20/2019 Findings: Previously seen right and left renal calculi on CT of 04/01/2019 are not well visualized on this radiograph, possibly due to overlying bowel contents. Nonobstructive bowel gas pattern. No free air. Status post cholecystectomy. Surgical clips in the right pelvis. No acute osseous injury. Impression: Previously seen right and left renal calculi from CT of 04/01/2019 are not well visualized on this radiograph, possibly due to overlying bowel contents. Signed by: Kurt Welsh MD on 08/05/2019 3:24 PM
== END ==
LOC: RAD 14:43
PROVIDERS: ATTEND Urology
DX: N20.0 Calculus of kidney (principal)
CPT/HCPCS: 74018

== ENCOUNTER 2019-08-11 09:32 | Emergency (ER) | payer BC ==
[~2019-08-11] VITALS: Ht 180.3 cm; Wt 181.4 kg
--- OUTSIDE RECORDS SUMMARY | 2019-08-11 09:36 | XMS REPORT | Clinical Summary ---
Author Author [facility] Address Unknown Phone Unavailable Care Team Providers Care Crushing Foreman Name Role Phone Troy Guerrero MD PCP Allergies Comments Active Allergy Reactions Severity Noted Date Penicillins Rash Low 10/09/2018 Medications End Date Status Medication Sig Dispensed Refills Start Date Active dapagliflozin (FARXIGA) 5 Take 5 mg by 0 mg tablet mouth daily. Active triamterene-hydrochloroth Take 1 tablet 0 iazid (MAXZIDE) 75-50 mg by mouth per tablet daily. Active amlodipine-valsartan Take 1 tablet 0 (EXFORGE) 5-320 mg per by mouth tablet daily. Active meloxicam (MOBIC) 15 mg Take 15 mg by 0 tablet mouth daily. Active pantoprazole (PROTONIX) Take 40 mg by 0 40 MG EC tablet mouth daily. Active atorvastatin (LIPITOR) 20 Take 20 mg by 0 MG tablet mouth daily. Default OP ins Active metFORMIN (GLUCOPHAGE) Take 500 mg 0 500 mg tablet by mouth 2 (two) times a day with meals. Active nebivolol (BYSTOLIC) 20 Take 20 mg by 0 mg tablet mouth daily. Active meclizine (ANTIVERT) 25 Take 25 mg by 0 mg tablet mouth 3 (three) times a day as needed for dizziness. Active B complex with C#20-folic Take by mouth 0 acid 1 mg capsule daily. Active glucosam/chond/collagen/h Take by 0 yalur mouth. ([id number] LUR AC ORAL) Active Problems Problem Noted Date Calculus of kidney 10/14/2018 Encounters Care Team Description Date Type Specialty Stoneking, Mala Reeves MD 10/14/2018 Anesthesia General Surgery Event Louis Quigley MD EXTRACORPOREAL SHOCKWAVE LITHOTRIPSY (ES WL)-LEFT 10/14/2018 Surgery General Surgery Louis Quigley MD Preop testing 10/14/2018 [facility] General Surgery Encounter Louis Quigley MD Preop testing (Primary Dx) 10/09/2018 Pre-Admit Pre-Admission Testi ng Testing Appointment after 08/10/2018 Family History Medical History Relation Name Comments Diabetes Maternal Grandmother Diabetes Mother Relation Name Status Comments Maternal Grandmother Mother Social History Date Tobacco Use Types Packs/Day Years Used Never Smoker Smokeless Tobacco: Never Used Drinks/Week oz/Week Comments Alcohol Use Never Alcohol Habits Answer Date Recorded How often do you have a drink containing alcohol? Never 10/09/2018 How many drinks containing alcohol do you have on No t asked a typical day when you are drinking? How often do you have six or more drinks on one Not asked occasion? Sex Assigned at Date Recorded Not on file Industry Job Start Date Occupation Not on file Not on file Not on file Travel End Travel History Travel Start No recent travel history available. Last Filed Vital Signs Reading Time Taken Comments Vital Sign 132/64 10/14/2018 3:50 PM CDT Blood Pressure 85 10/14/2018 3:50 PM CDT Pulse 36.7 C (98.1 F) 10/14/2018 2:56 PM CDT Temperature 16 10/14/2018 3:50 PM CDT Respiratory Rate 93% 10/14/2018 3:50 PM CDT Oxygen Saturation - - Inhaled Oxygen Concentration 165 kg (364 lb 3 oz) 10/14/2018 11:10 AM CDT Weight 177.8 cm (5' 10") 10/14/2018 11:10 AM CDT Height 52.26 10/14/2018 11:10 AM CDT Body Mass Index Plan of Treatment Health Maintenance Due Date Last Done Comments DIABETIC RETINAL EYE EXAM 1963 DIABETIC FOOT EXAM 1973 URINE MICROALBUMIN 1973 COLONOSCOPY SCREENING 2013 SHINGLES VACCINES (#1) 2013 INFLUENZA VACCINE 10/09/2019 Procedures Comments Procedure Name Priority Date/Time Associated Diag nosis POC GLUCOSE Routine 10/14/2018 2:40 PM CDT MI AN ELECTIVE Routine 10/14/2018 ENDOTRACHEAL AIRWAY 1:42 PM CDT Procedure Note - Mala Rodriguez 10/14/2018 1:42 PM CDT Airway Date/Time: 10/14/2018 1:20 PM Performed by: Mala Rodriguez MD Authorized by: Mala Rodriguez MD Location: OR Urgency: Elective Difficult Airway: Yes Anesthesio logist: Mala Rodriguez MD Performed by: anesthesio logist Preoxygena yue with 100% O2: Yes Mask Ventilatio n: Difficult mask Final Airway Type: Endotrache al airway Final Endotrache al Airway: ETT Cuffed: Yes Technique Used: Video laryngosco py Devices/Me thods Used in Placement: Bougie and intubating stylet Insertion Site: Oral Blade Type: Noreen Laryngosco pe Blade/Vide olaryngosc ope Blade Size: 3 ETT Size (mm): 8.0 Measured from: Lips ETT to Lips (cm): 24 Placement Verified by: CO2 detection Laryngosc opic view: Grade IIa - partial view of glottis Modified RSI: Yes Number of Attempts at Approach: 3 or more Pt's airway was anterior. Could not pass ett with glidescope stylet or wire stylet. Able to pass with bougie EXTRACORPOREAL SHOCKWAVE 10/14/2018 N20.0 KIDNEY STONE LITHOTRIPSY (ESWL) 1:02 PM CDT Special Needs [facility] CONF- [id number] POC GLUCOSE Routine 10/14/2018 11:32 AM CDT ESTIMATED GFR Routine 10/09/2018 3:49 PM CDT BASIC METABOLIC PANEL Routine 10/09/2018 Preop te sting 3:49 PM CDT CBC HEMOGRAM Routine 10/09/2018 Preop testing 3:49 PM CDT ECG 12-LEAD Routine 10/09/2018 Preop testing 3:48 PM CDT after 08/10/2018 Results * POC glucose (10/14/2018 2:40 PM CDT) Only the most recent of 2 results within the time period is included. POC glucose 163 (H) 65 - 99 mg/dL [place] Comment: YARSANI CLEAR Meter ID: [id number] [facility] Director Of Publications: Juma Lora Specimen Performing Organization Address City/[facility] Ph one Number [address] [place] [address] PATHOLOGY AND GENOMIC MEDICINE [address] * Estimated GFR (10/09/2018 3:49 PM CDT) [facility] Estimated GFR 56 (A) mL/min/1.73 m2 [place] Comment: [facility] Interpretation G1 >=90 Normal or high G2 60-89 Mildly decreased G3a 45-59 Mildly to moderately decreased G3b 30-44 Moderately to severely decreased G4 15-29 Severely decreased G5 <15 Kidney failure The eGFR was calculated using the Chronic Kidney Disease Epidemiology Collaboration (CKD-EPI) equation. Interpretation is based on recommendations of the National Kidney Foundation-Kidney Disease Outcomes Quality Initiative (NKF-KDOQI) published in 2014. Specimen Plasma specimen Performing Organization Address [facility] Ph one Number [facility]PART[facility] [address] [place] [address] PATHOLOGY AND GENOMIC MEDICINE [address] * CBC hemogram (10/09/2018 3:49 PM CDT) [facility] WBC 9.78 4.50 - 11.00 k/uL [facility] RBC 5.16 4.40 - 6.00 m/uL [facility] HGB 13.8 (L) 14.0 - 18.0 g/dL [facility] HCT 44.3 41.0 - 51.0 % [facility] MCV 85.9 82.0 - 100.0 fL [facility] MCH 26.7 (L) 27.0 - 34.0 pg [facility] MCHC 31.2 31.0 - 37.0 g/dL [facility] RDW - SD 48.9 37.0 - 55.0 fL [facility] MPV 10.0 8.8 - 13.2 fL [facility] Platelet count 265 150 - 400 k/uL [facility] Nucleated RBC 0.00 /100 WBC [facility] Specimen Blood Performing Organization Address City/State/[facility] Ph one Number [facility] [place] [address] [place] [place], [place] [address] PATHOLOGY AND GENOMIC MEDICINE [facility] [place] [address] [place] [address] [facility] * Basic metabolic panel (10/09/2018 3:49 PM CDT) Sodium 140 135 - 148 mEq/L [facility] Potassium 4.1 3.5 - 5.0 mEq/L [facility] Chloride 100 98 - 112 mEq/L [facility] CO2 25 24 - 31 mEq/L [facility] Anion gap 15@ANIO 7 - 15 mEq/L [facility] BUN 24 (H) 6 - 20 mg/dL [facility] Creatinine 1.40 (H) 0.70 - 1.20 mg/dL [facility] Glucose 132 (H) 65 - 99 mg/dL [facility] Calcium 10.3 (H) 8.3 - 10.2 mg/dL [facility] Specimen Plasma specimen Performing Organization Address City/[facility] Ph one Number [facility] [place] [address] [place] [address] PATHOLOGY AND GENOMIC MEDICINE [facility] [place] [address] [place] [address] [facility] * ECG 12 lead (10/09/2018 3:48 PM CDT) Ventricular 82 [facility] rate Atrial rate 82 [facility] MI interval 152 [facility] QRSD interval 100 [facility] QT interval 366 [facility] QTC interval 427 [facility] P axis 1 45 [facility] QRS axis 1 61 [facility] T wave axis 39 [facility] EKG impression Normal sinus rhythm-Normal [facility] ECG-No previous ECGs available- Specimen Narrative Performed At This result has an attachment that is n ot available. Performing Organization Address City/State/Zipcode Ph one Number [facility] [address] [place] [address] after 08/10/2018 Insurance Type Payer Benefit Subscriber ID Effective Phone Address Plan / Dates Group PPO BCBS BCBS OUT xxxxxxxxxxxxxxx 2018- OF STATE Present [phone] Advance Directives For more information, please contact: [phone] Patient Designated Broker Explanation Type Date Recorded Advance Directives, Living Will and Medical Power of Train Announcer
--- OUTSIDE RECORDS SUMMARY | 2019-08-11 09:37 | XMS REPORT | Continuity of Care Document ---
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 Name Role Phone [employer] [facility] Unavailable Un available Problems Problem Status Onset Date Classification Date Reported Comments Source Superior glenoid labrum lesion of right shoulder, initial encounter 03/25/2018 10/06/2018 [facility] UNK Active 1 05/05/2017 [facility] Impingement syndrome of right shoulder 02/21/2018 09/02/2018 [facility] SHOULDER Active 10/08/2017 [facility] [place] 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 H Active 05/31/2015 [facility] [place] ICD NOT GIVEN / CPT 76399 [id number] [id number] Active 12/04/2012 [facility] STONE 592.0 592.1/CPT 61581 42479 Active 12/03/2012 [facility] Incomplete rotator cuff tear or rupture of right shoulder, not specified as traumatic 09/02/2018 [facility] [place] Bicipital tendinitis, right shoulder 09/02/2018 [facility] [place] Effusion, left knee 09/02/2018 [facility] [place] Pain in left knee 09/02/2018 [facility] [place] Acid reflux Active Problem 12/18/2012 [facility] Back pain Active Problem 12/18/2012 1lumbar [facility] Chest pain Resolved Problem 12/18/2012 27/13 Dx as acid reflux [facility] Foot swelling Active Problem 12/18/2012 [facility] GERD - Gastro-esophageal reflux disease Active Problem 12/18/2012 [facility] HTN - Hypertension Active Problem 12/18/2012 [facility] Obese Active Problem 12/18/2012 [facility] Poor peripheral circulation Re solved Problem 01/2013 3swelling to LE [facility] Renal stone Active Problem 12/18/2012 [facility] Retained ureteral stent Active Problem 12/18/2012 4left [facility] Sleep apnea Active Problem 12/18/2012 5uses CPAP [facility] Strain of muscle, fascia and tendon of l jigna head of biceps, right arm, initial encounter 10/06/2018 [facility] Other synovitis and tenosynovitis, right shoulder 10/06/2018 [facility] Loose body in right shoulder 10/06/2018 [facility] Primary osteoarthritis, right shoulder 10/06/2018 [facility] Morbid (severe) obesity due to excess calories 10/06/2018 [facility] Body mass index (BMI) 50-59.9 , adult 10/06/2018 [facility] Essential (primary) hypertension 10/06/2018 [facility] Gastro-esophageal reflux disease without esophagitis 10/06/2018 [facility] Type 2 diabetes mellitus without complications 10/06/2018 [facility] detention (current) use of aspirin 10/06/2018 [facility] 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 10/06/2018 [facility] Gastroesophageal reflux disease (disorder) Active Problem 10/06/2018 [facility] [place],[facility] [place] Backache (finding) Resolved Problem 10/06/2018 lumbar [facility] [place],[facility] [place] Chest pain (finding) Resolved Problem 10/06/2018 7/13 Dx as acid reflux [facility] [place],[facility] [place] Diabetes mellitus (disorder) A ctive [facility] [place] Foot swelling (finding) Active Problem 10/06/2018 [facility] Ritter [facility] [place],[facility] [place] Hypertensive disorder, systemic arterial (disorder) Active Problem 10/06/2018 [facility] [place],[facility] [place] Injury of superior glenoid labrum of sriram ulder joint (disorder) Active Prob hiral 10/06/2018 [facility] [place] Obese (finding) Active Problem 10/06/2018 [facility] Ritter [facility] [place],[facility] [place] Poor peripheral circulation (disorder) Resolved Problem 10/06/2018 swelling to LE [facility] [place],[facility] [place] Kidney stone (disorder) Resolv ed Problem [facility]A Ritter [facility] [place],[facility] [place] Retained ureteric stent (disorder) Resolved Problem left [facility] R[facility], [facility] [place],[facility] [place] Sleep apnea (finding) Active Problem 10/06/2018 uses CPAP [facility]A Ritter, O [facility] [place], [place],[facility] [place] Medications Medication Details Route Status Patient Instructions Ordering Provider Order Date Source Ketorolac 15 mg, Route: IVP, Q 6H, Dosing Weight 175, kg, Start date: 03/19/18 12:00:00 [employer]SE [employer]ITTER, Duration: 6 doses or times, Stop date: 03/20/18 18:00:00 [employer] Inactive 03/19/2018 [facility] Phenergan 25 mg, Route: IVPB, Q4H, Dosing Weight 175, kg, PRN Nausea & Vomiting, Start date: 03/19/18 10:02:00 [employer], Duration: 30 day, Stop date: 04/18/18 10:01:00 [employer] Inactive 03/19/2018 [facility] Zofran 4 mg, Route: IV, Drug f orm: INJ, Q4H, Dosing Weight 175, kg, PRN Nausea, Start date: 03/19/18 10:02:00 [employer]IT[employer], Duration: 30 day, Stop date: 04/18/18 10:01:00 [employer] Inactive 03/19/2018 [facility] Morphine 2 mg, Route: IVP, Q3H , Dosing Weight 175, kg, PRN Pain Score 1-3, Start date: 03/19/18 10:02:00 [employer]SE [employer]ITTER, Duration: 30 day, Stop date: 04/18/18 10:01:00 [employer]IT[employer] Inactive 03/19/2018 [facility] Tramadol 50 mg, Route: PO, Donovan g form: TAB, Q6H, Dosing Weight 175, kg, PRN Pain Score 1-3, Start date: 03/19/18 10:02:00 [employer]ITTER, Duration: 30 day, Stop date: 04/18/18 10:01:00 [employer] Inactive 03/19/2018 [facility] Hydromorphone 0.3 mg, Route: I PHOTOENGRAVING MACHINE OPERATOR/TENDER, Q3H, Dosing Weight 175, kg, PRN Pain Score 4-6, Start date: 03/19/18 10:02:00 [employer], Duration: 30 day, Stop date: 04/18/18 10:01:00 [employer] Inactive 03/19/2018 [facility] Acetaminophen 325 MG / Hydrocodone Deangelo trate 5 MG Oral Tablet Route: PO, Dosing Weight 175, kg, Q4H, P RN Pain Score 4-6, Start date: 03/19/18 10:02:00 [employer] SITTER, Duration: 30 day, Stop date: 04/18/18 10:01:00 [employer] Inactive 03/19/2018 [facility] ceFAZolin (ANES) Route: IV, Dr ug form: INJ, ONCE, Stop date: 03/19/18 8:57:00 [employer]SE SITTER Inactive 03/19/2018 [facility] neostigmine (ANES) Route: IV, Drug form: INJ, ONCE, Stop date: 03/19/18 8:57:00 [employer]SE SITTER Inactive 03/19/2018 [facility] glycopyrrolate (ANES) Route: I V, Drug form: INJ, ONCE, Stop date: 03/19/18 8:57:00 [employer] SIT[employer] Inactive 03/19/2018 [facility] propofol (ANES) Route: IV, Donovan g form: INJ, ONCE, Stop date: 03/19/18 8:57:00 [employer]SE SITTER Inactive 03/19/2018 [facility] rocuronium (ANES) Route: IV, D rug form: INJ, ONCE, Stop date: 03/19/18 8:57:00 [employer]SE SITTER Inactive 03/19/2018 [facility] famotidine (ANES) Route: IV, D rug form: INJ, ONCE, Stop date: 03/19/18 8:57:00 [employer] HOUSE SITTER Inactive 03/19/2018 [facility] acetaminophen (ANES) Route: IV , Drug form: INJ, ONCE, Stop date: 03/19/18 8:57:00 [employer]SE SITTER Inactive 03/19/2018 [facility] metoclopramide (ANES) Route: I V, Drug form: INJ, ONCE, Stop date: 03/19/18 8:57:00 [employer]SE SITTER Inactive 03/19/2018 [facility] ondansetron (ANES) Route: IV, Drug form: INJ, ONCE, Stop date: 03/19/18 8:57:00 [employer]SE SITTER Inactive 03/19/2018 [facility] vancomycin (ANES) Route: IV, D rug form: INJ, ONCE, Stop date: 03/19/18 8:57:00 [employer]SE SITTER Inactive 03/19/2018 [facility] lidocaine (ANES) Route: IV, Dr ug form: INJ, ONCE, Stop date: 03/19/18 8:57:00 [employer] HOUSE SITTER Inactive 03/19/2018 [facility] Naloxone 0.04 mg, Route: IVP, Q2MIN, Dosing Weight 175, kg, PRN Narcotic Reversal, Start date: 03/19/18 8:33:00 [employer] HOUSE [employer]ITTER, Duration: 30 day, Stop date: 04/18/18 8:32:00 PET HOUSE SITTER Inactive 03/19/2018 [facility] Lactated Ringers IV 1000 mL 1, 000 mL, Rate: 100 ml/hr, Infuse over: 10 hr, Route: IV, Dosing Weight 175 kg, Total Volume: 1,000, Start date: 03/19/18 8:33:00 PET HOUSE SITTER, Duration: 30 day, Stop date: 04/18/18 8:32:00 PET HOUSE SITTER, 3.03, m2 Inactive 03/19/2018 [facility] Lactated Ringers Injection IV (ANES) 1000 mL Route: IV, Total Volume: 1,000, Start date: 03/19/18 7:53:00 PET HOUSE SITTER, Stop date: 03/19/18 8:53:00 PET HOUSE SITTER Inactive 03/19/2018 [facility] Calcium Chloride 0.0014 MEQ/ML / Potassi um Chloride 0.004 MEQ/ML / Sodium Chloride 0.103 MEQ/ML / Sodium Lactate 0.028 MEQ/ML Injectable Solution 1,000 mL, Rate: 25 ml/hr, Infuse over: 4 0 hr, Route: IV, Dosing Weight 175 kg, Total Volume: 1,000, Start date: 03/19/18 6:56:00 PET HOUSE SITTER, Duration: 30 day, Stop date: 04/18/18 6:55:00 PET HOUSE SITTER, 3.03, m2 Inactive 03/19/2018 [facility] clindamycin 300 mg oral capsule 300 mg = 1 cap, PO, TID, X 15 day, # 45 cap, 0 Refill(s) No Longer Active 03/19/2018 [facility] meclizine 25 mg oral tablet 25 mg = 1 tab, PO, PRN, 0 Refill(s) Active 03/13/2018 [facility] Metformin hydrochloride 500 MG Oral Tablet 500 mg = 1 tab, PO, Bedtime, 0 Refill(s) Active 03/13/2018 [facility] pantoprazole 40 mg oral enteric coated tablet 40 mg = 1 tab, PO, Daily, 0 Refill(s) Active 03/13/2018 [facility] Amlodipine 5 MG / valsartan 320 MG Oral Tablet 1 tab, PO, Daily, # 30 tab, 0 Refill(s) Active 03/13/2018 [facility] Glucosamine Chondroitin PO, Da melly, 0 Refill(s) Active 03/13/2018 [facility] Super B Complex oral tablet PO , Daily, 0 Refill(s) Active 03/13/2018 [facility] dapagliflozin propanediol 10 MG Oral Tablet [Stefanxiga] 10 mg = 1 tab, PO, Daily, 0 Refill(s) Active 03/13/2018 [facility] ketorolac 15 mg, 1 mL, Route: IVP, Drug form: INJ, Q6H, Dosing Weight 193.182, kg, Start date: 12/11/12 18:00:00, Duration: 6 doses or times, Stop date: 12/13/12 0:00:00 IVP No Longer Active Ceasar 12/11/2012 [facility] Lactated Ringers Injection IV 1000 mL 1,000 mL, Rate: 50 ml/hr, Infuse over: 20 hr, Route: IV, Dosing Weight 193.182 kg, Total Volume: 1,000, Start date: 12/11/12 13:42:00, Duration: 30 day, Stop date: 01/10/13 13:41:00 IV No Longer Active Johan 12/11/2012 [facility] acetaminophen-hydrocodone 325 mg-5 mg oral tablet 1 tab, Route: PO, Dosing Weight 193.182, kg, Q4H, PRN Pain Score 1-3, Start date: 12/11/12 13:42:00, Duration: 30 day, Stop date: 01/10/13 13:41:00 PO No Longer Active Johan 12/11/2012 [facility] naloxone 0.04 mg, Route: IVP, Q2MIN, Dosing Weight 193.182, kg, PRN Narcotic Reversal, Start date: 12/11/12 13:42:00, Duration: 8 doses or times, Stop date: Limited # of times IVP No Longer Active Johan 12/11/2012 [facility] ondansetron 4 mg, Route: IVP, ONCE, Dosing Weight 193.182, kg, PRN Nausea & Vomiting, Start date: 12/11/12 13:42:00 IVP No Longer Active Johan 12/11/2012 [facility] hydromorphone 0.5 mg, Route: I PHOTOENGRAVING MACHINE OPERATOR/TENDER, Q5Min, Dosing Weight 193.182, kg, PRN Pain Score 7-10, Start date: 12/11/12 13:42:00, Duration: 5 doses or times, Stop date: Limited # of times IVP No Longer Active [facility] 12/11/2012 [facility] fentanyl 25 microgram, Route: IVP, Q5Min, Dosing Weight 193.182, kg, PRN Pain Score 4-6, Start date: 12/11/12 13:42:00, Duration: 4 doses or times, Stop date: Limited # of times IVP No Longer Active Carmen 12/11/2012 [facility] flumazenil 0.2 mg, Route: IVP, PRN, Dosing Weight 193.182, kg, PRN Benzodiazepine Reversal, Initial dose, Start date: 12/11/12 13:42:00, Duration: 30 day, Stop date: 01/10/13 12:41:00 IVP No Longer Active [facility] 12/11/2012 [facility] morphine Sulfate 2 mg, 1 mL, R oute: IVP, Drug form: INJ, Q3H, Dosing Weight 193.182, kg, PRN Pain Score 1-3, Start date: 12/11/12 13:27:00, Duration: 30 day, Stop date: 01/10/13 13:26:00 IVP No Longer Active Nicolas 12/11/2012 [facility] acetaminophen-hydrocodone 325 mg-10 mg oral tablet 1 tab, Route: PO, Drug Form: TAB, Dosing Weight 193.182, kg, Q4H, PRN Pain Score 4-6, Start date: 12/11/12 13:27:00, Duration: 30 day, Stop date: 01/10/13 13:26:00 PO No Longer Active Nicolas 12/11/2012 [facility] gentamicin + Sodium Chloride 0.9% IV 100 mL 120 mg, 3 mL, Route: IVPB, Drug form: INJ, ONCALL, Dosing Weight 193.182, kg, Start date: 12/11/12 13:00:00, Duration: 30 day, Stop date: 01/10/13 11:59:00 IVPB No Longer Active Nicolas 12/11/2012 [facility] Levaquin 500 mg, 100 mL, Route : IV, Drug form: INJ, ONCALL, Dosing Weight 193.182, kg, Start date: 12/11/12 13:00:00 IV No Longer Active Nicolas 12/11/2012 [facility] Lactated Ringers Injection IV 1000 mL 1,000 mL, Rate: 25 ml/hr, Infuse over: 40 hr, Route: IV, Dosing Weight 193.182 kg, Total Volume: 1,000, Start date: 12/11/12 11:27:00, Duration: 30 day, Stop date: 01/10/13 11:26:00 IV No Longer Active Nick 12/11/2012 [facility] labetalol 5 mg, Route: IVP, Q5 Min, Dosing Weight 193.182, kg, PRN Elevated BP, Start date: 12/04/12 13:04:00, Duration: 5 doses or times, Stop date: Limited # of times IVP No Longer Active [place] 12/04/2012 [facility] esmolol IV Push 10 mg, Route: IVP, Q5Min, Dosing Weight 193.182, kg, PRN Elevated BP, Start date: 12/04/12 13:04:00, Duration: 5 doses or times, Stop date: Limited # of times IVP No Longer Active [place] 12/04/2012 [facility] hydrALAZINE 5 mg, Route: IVP, Q5Min, Dosing Weight 193.182, kg, PRN Elevated BP, Start date: 12/04/12 13:04:00, Duration: 4 doses or times, Stop date: Limited # of times IVP No Longer Active [place] 12/04/2012 [facility] acetaminophen-hydrocodone 325 mg-5 mg oral tablet 1 tab, Route: PO, Dosing Weight 193.182, kg, Q4H, PRN Pain Score 1-3, Start date: 12/04/12 13:04:00, Duration: 30 day, Stop date: 01/03/13 13:03:00 PO No Longer Active [place] 12/04/2012 [facility] hydromorphone 0.5 mg, Route: I PHOTOENGRAVING MACHINE OPERATOR/TENDER, Q5Min, Dosing Weight 193.182, kg, PRN Pain Score 7-10, Start date: 12/04/12 13:04:00, Duration: 5 doses or times, Stop date: Limited # of times IVP No Longer Active [place] 12/04/2012 [facility] ketorolac 30 mg, Route: IVP, O NCE, Dosing Weight 193.182, kg, Start date: 12/04/12 13:04:00, Duration: 1 doses or times, Stop date: 12/04/12 13:04:00 IVP Active [place] 12/04/2012 [facility] naloxone 0.04 mg, Route: IVP, Q2MIN, Dosing Weight 193.182, kg, PRN Narcotic Reversal, Start date: 12/04/12 13:04:00, Duration: 8 doses or times, Stop date: Limited # of times IVP No Longer Active [place] 12/04/2012 [facility] dexamethasone 4 mg, Route: IVP , ONCE, Dosing Weight 193.182, kg, PRN Nausea & Vomiting, Start date: 12/04/12 13:04:00 IVP No Longer Active [place] 12/04/2012 [facility] ondansetron 4 mg, Route: IVP, ONCE, Dosing Weight 193.182, kg, PRN Nausea & Vomiting, Start date: 12/04/12 13:04:00 IVP No Longer Active [place] 12/04/2012 [facility] flumazenil 0.2 mg, Route: IVP, PRN, Dosing Weight 193.182, kg, PRN Benzodiazepine Reversal, Initial dose, Start date: 12/04/12 13:04:00, Duration: 30 day, Stop date: 01/03/13 13:03:00 IVP No Longer Active [place] 12/04/2012 [facility] morphine Sulfate 2 mg, Route: IVP, Q3H, Dosing Weight 193.182, kg, PRN Pain Score 1-3, Start date: 12/04/12 12:57:00, Duration: 30 day, Stop date: 01/03/13 12:56:00 IVP No Longer Active [facility] 12/04/2012 [facility] acetaminophen-hydrocodone 325 mg-10 mg oral tablet 1 tab, Route: PO, Dosing Weight 193.182, kg, Q4H, PRN Pain Score 4-6, Start date: 12/04/12 12:57:00, Duration: 30 day, Stop date: 01/03/13 12:56:00 PO No Longer Active Ceasar 12/04/2012 [facility] gentamicin 120 mg, Route: IVPB , ONCE, Dosing Weight 193.182, kg, Start date: 12/04/12 11:27:00, Stop date: 12/04/12 11:27:00 IVPB No Longer Active Nicolas 11/09 [facility] Levaquin 500 mg, Route: IVPB, ONCE, Dosing Weight 193.182, kg, Start date: 12/04/12 11:27:00, Stop date: 12/04/12 11:27:00 IVPB No Longer Active Nicolas 11/09 [facility] Lactated Ringers Injection IV 1000 mL 1,000 mL, Rate: 25 ml/hr, Infuse over: 40 hr, Route: IV, Dosing Weight 193.182 kg, Total Volume: 1,000, Start date: 12/04/12 11:05:00, Duration: 30 day, Stop date: 01/03/13 11:04:00 IV No Longer Active Andrea 12/04/2012 [facility] tamsulosin 0.4 mg oral capsule 0.4 mg, 1 cap, PO, Daily, 30 cap, Substitution Allowed, CAP PO Active 12/04/2012 [facility] Zofran 4 mg oral tablet PO, FL N, Substitution Allowed PO Active 12/04/2012 [facility] Cipro PO, Q12H, Substitution A llowed PO Active 12/04/2012 [facility] Aspirin Low Dose 81 mg oral tablet PO, Daily, Substitution Allowed PO Active 12/04/2012 [facility] meloxicam 15 mg oral tablet 15 mg, 1 tab, PO, Daily, 30 tab, Substitution Allowed, TAB PO Active 12/04/2012 [facility] hydrochlorothiazide-triamterene 25 mg-37 .5 mg oral capsule 1 cap, PO, Daily, 30 cap, Substitution A llowed, Maintenance, CAP PO Active 12/04/2012 [facility] amLODipine 5 mg oral tablet 5 mg, 1 tab, PO, Daily, 30 tab, Substitution Allowed, TAB PO Active 12/04/2012 [facility] Bystolic 10 mg oral tablet 10 mg, 1 tab, PO, Daily, 30 tab, Substitution Allowed, TAB PO Active 12/04/2012 [facility] atorvastatin 20 mg oral tablet 20 mg, 1 tab, PO, Daily, 30 tab, Substitution Allowed, TAB PO Active 12/04/2012 [facility] Diovan 320 mg oral tablet 320 mg, 1 tab, PO, Daily, 90 tab, Substitution Allowed, TAB PO Active 12/04/2012 [facility] lansoprazole 30 mg oral delayed release capsule 30 mg, 1 cap, PO, Daily, 30 cap, Substitution Allowed PO Active 12/04/2012 [facility] Allergies, Adverse Reactions, Alerts Substance Category Reaction Severity Reaction type Status Date Reported Comments Source penicillins Assertion Drug allergy Active [facility] Immunizations No Data Provided for This Section Results Order Name Results Value Reference Range Date Interpretation Comments Source CHEM PANEL eGFR 70 03/13/2018 Result Comment: The eGFR is calculated using the [...] should be multiplied by the estimated BMI. [facility] CHEM PANEL BUN 16 7 - 22 03/13/2018 [facility] CHEM PANEL Creatinine Lvl 1.16 0.50 - 1.40 03/13/2018 [facility] CHEM PANEL Glucose Lvl 135 70 - 99 03/13/2018 [facility] CHEM PANEL Sodium Lvl 140 135 - 145 03/13/2018 [facility] CHEM PANEL Potassium Lvl 3.8 3.5 - 5.1 03/13/2018 [facility] CHEM PANEL Calcium Lvl 9.0 8.5 - 10.5 03/13/2018 [facility] CHEM PANEL CO2 30 24 - 32 03/13/2018 [facility] CHEM PANEL Chloride Lvl 104 95 - 109 03/13/2018 [facility] CHEM PANEL AGAP 9.8 10.0 - 20.0 03/13/2018 [facility] HEMATOLOGY Monocytes 8.3 2.0 - 12.0 03/13/2018 [facility] HEMATOLOGY Segs 59.7 45.0 - 75.0 03/13/2018 [facility] HEMATOLOGY Lymphocytes 28.6 20.0 - 40.0 03/13/2018 [facility] HEMATOLOGY Eosinophils 2.9 0.0 - 4.0 03/13/2018 [facility] HEMATOLOGY Monocytes # 0.7 0.0 - 0.8 03/13/2018 [facility] HEMATOLOGY Eosinophils # 0.3 0.0 - 0.5 03/13/2018 [facility] HEMATOLOGY Basophils 0.5 0.0 - 1.0 03/13/2018 [facility] HEMATOLOGY Neutrophils # 5.3 1.5 - 8.1 03/13/2018 [facility] HEMATOLOGY Lymphocytes # 2.6 1.0 - 5.5 03/13/2018 [facility] HEMATOLOGY Platelet 229 133 - 450 03/13/2018 [facility] HEMATOLOGY RDW 15.1 11.5 - 14.5 03/13/2018 [facility] MPV 8.8 7.4 - 10.4 03/13/2018 [facility] Hgb 14.3 14.0 - 18.0 03/13/2018 [facility] WBC 8.9 3.7 - 10.4 03/13/2018 [facility] HEMATOLOGY RBC 5.11 4.70 - 6.10 03/13/2018 [facility] HEMATOLOGY Hct 43.2 42.0 - 54.0 03/13/2018 [facility] MCHC 33.1 32.0 - 36.0 03/13/2018 [facility] MCH 28.0 27.0 - 31.0 03/13/2018 [facility] HEMATOLOGY MCV 84.6 80.0 - 94.0 03/13/2018 [facility] SPECIAL CHEMISTRY Hgb A1C 7.8 <=5.6 % 03/13/2018 [facility] URINALYSIS UA Color [place] 12/09/2012 NA [facility] URINALYSIS UA RBC >182 0 - 2 12/09/2012 [facility] URINALYSIS UA Sq Epi Occas ional /LPF *NA* (12/09/2012 13:30:00) Few 12/09/2012 NA [facility] URINALYSIS UA WBC 9 0 - 5 12/09/2012 [facility] URINALYSIS UA Turbidity Clear (12/09/2012 13:30:00) Clear 12/09/2012 Normal [facility] URINALYSIS UA Protein Negat tone mg/dL (12/09/2012 13:30:00) Negati ve 12/09/2012 Normal [facility] URINALYSIS UA pH 5.0 5.0 - 8.0 12/09/2012 Normal [facility] URINALYSIS UA Spec Grav 1.015 <=1.030 12/09/2012 Normal [facility] URINALYSIS UA Blood Large *ABN* (12/09/2012 13:30:00) Negati ve 12/09/2012 ABN [facility] URINALYSIS UA Urobilinogen 2.0 0.1 - 1.0 12/09/2012 HI [facility] URINALYSIS UA Nitrite Posit tone *ABN* (12/09/2012 13:30:00) Negati ve 12/09/2012 ABN [facility] URINALYSIS UA Leuk Est Negat tone (12/09/2012 13:30:00) Negati ve 12/09/2012 Normal [facility] URINALYSIS UA Glucose Negat tone mg/dL *NA* (12/09/2012 13:30:00) Negati ve 12/09/2012 NA [facility] URINALYSIS UA Ketones Negat tone mg/dL *NA* (12/09/2012 13:30:00) Negati ve 12/09/2012 NA [facility] URINALYSIS UA Bili Negat tone *NA* (12/09/2012 13:30:00) Negati ve 12/09/2012 NA [facility] Microbiology Culture: Urine 12/09/2012 [facility] CHEMISTRY eGFR 78 12/04/2012 NA <sup>1</sup>Result [...] should be multiplied by the estimated BMI. [facility] CHEMISTRY CO2 29 24 - 32 12/04/2012 Normal [facility] CHEMISTRY Creatinine Lvl 1.1 0.5 - 1.4 12/04/2012 Normal [facility] CHEMISTRY Glucose Lvl 175 70 - 99 12/04/2012 [place] <sup>2</sup>Interpretive Data: Adult ref erence range values reflect the clinical guidelines
of the [place] [employer]. [facility] CHEMISTRY BUN 15 7 - 22 12/04/2012 Normal [facility] CHEMISTRY Calcium Lvl 8.7 8.5 - 10.5 12/04/2012 Normal [facility] CHEMISTRY Potassium Lvl 3.9 3.5 - 5.1 12/04/2012 Normal [facility] CHEMISTRY Sodium Lvl 144 135 - 145 12/04/2012 Normal [facility] CHEMISTRY Chloride Lvl 107 95 - 109 12/04/2012 Normal [facility] CHEMISTRY AGAP 11.9 10.0 - 20.0 12/04/2012 Normal [facility] HEMATOLOGY Hgb 11.7 14.0 - 18.0 12/04/2012 LOW [facility] HEMATOLOGY MCV 83.6 80.0 - 94.0 12/04/2012 Normal [facility] HEMATOLOGY Hct 36.1 42.0 - 54.0 12/04/2012 LOW [facility] HEMATOLOGY RDW 14.2 11.5 - 14.5 12/04/2012 Normal [facility] HEMATOLOGY Platelet 217 133 - 450 12/04/2012 Normal [facility] HEMATOLOGY MPV 8.7 7.4 - 10.4 12/04/2012 Normal [facility] HEMATOLOGY RBC 4.32 4.70 - 6.10 12/04/2012 LOW [facility] HEMATOLOGY MCHC 32.3 32.0 - 36.0 12/04/2012 Normal [facility] HEMATOLOGY MCH 27.0 27.0 - 31.0 12/04/2012 Normal [facility] HEMATOLOGY WBC 7.0 3.7 - 10.4 12/04/2012 Normal [facility] HEMATOLOGY Segs-Bands # 5.0 1.5 - 8.1 12/04/2012 Normal [facility] HEMATOLOGY Basophils 0.2 0.0 - 1.0 12/04/2012 Normal [facility] HEMATOLOGY Eosinophils # 0.1 0.0 - 0.5 12/04/2012 Normal [facility] HEMATOLOGY Monocytes # 0.6 0.0 - 0.8 12/04/2012 Normal [facility] HEMATOLOGY Lymphocytes # 1.2 1.0 - 5.5 12/04/2012 Normal [facility] HEMATOLOGY Segs 72.1 45.0 - 75.0 12/04/2012 Normal [facility] HEMATOLOGY Eosinophils 2.1 0.0 - 4.0 12/04/2012 Normal [facility] HEMATOLOGY Monocytes 8.7 2.0 - 12.0 12/04/2012 Normal [facility] Lymphocytes 16.9 20.0 - 40.0 12/04/2012 LOW [facility] Basophils # 0.0 0.0 - 0.2 12/04/2012 Normal [facility] PTT 30.0 22.9 - 35.8 12/04/2012 Normal <sup>4</sup>Interpretive Data: Heparin T herapeutic Range: 57 - 92 Seconds [facility] PT 12.8 12.0 - 14.7 12/04/2012 Normal [facility] INR 0.97 0.85 - 1.17 12/04/2012 Normal <sup>3</sup>Interpretive Data: RECOMMEND ED RANGES FOR PROTIME INR:
2.0-3.0 for most medical and surgical thromboembolic states.
2.5-3.5 for artificial heart valves and recurrent embolism.

INR SHOULD BE USED ONLY FOR PATIENTS ON STABLE ANTICOAGULANT THERAPY. 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 Please see the corresponding report for further details. Axial, oblique coronal, and oblique sagittal MR images of the shoulder. IV contrast: None. FINDINGS: ROTATOR CUFF AND ASSOCIATED STRUCTURES Rotator cuff: 1. There is a near full-thickness bursa l tear of the supraspinatus tendon extending into the infraspinatus tendon measuring 2.4 x 2.4 cm (anterior- posterior by transverse on series 601, image 16 and series 801, image 30). 2. Interstitial delaminating injury of the remaining posterior portions of the intraspinous tendon extends to the myotendinous junction. 3. Fluid within the subscapularis tendo n presumably related to injection. 4. Teres minor tendon is unremarkable. Bursa: There is fluid within the subacromial/subdeltoid bursa from recent contrast injection, compatible with full-thickness rotator cuff tear. Musculature: There is no muscular tear, contusion, or atrophy. Acromioclavicular joint: Partial acromial resection. OSSEOUS STRUCTURES Minimal edema within the distal right clavicle. LONG BICIPITAL TENDON 1. There is thickening and increased in trasubstance signal of the intra- articular portion of the long head of the biceps tendon. 2. Extra-articular biceps tenosynovitis . GLENOHUMERAL JOINT Joint fluid: Joint fluid related to recent injection. Mild degree of synovitis. Cartilage and Bone: Small focal areas of greater than 50% volume loss of cartilage within the central and superior humeral head. Labrum: 1. There is fraying of the anterior/sup erior labrum. 2. Minimally displaced chronic tear thr oughout the posterior labrum. 3. Mild posterior positioning of the hu meral head. Other support structures: No capsular or [...] the myotendinous junction. 3. Tenosynovitis and tendinosis involvi ng the long head of the biceps tendon. 4. Degenerative type labral tear. 02/12/2018 [facility] Ritter Inj Arthrogram Shoulder Unilat DX EXAM: FLUOROSCOPY- GUIDED RIGHT SHOULDER INJECTION FOR MR ARTHROGRAM DATE: 02/12/2018 9:20 AM PET HOUSE SITTER INDICATION: - M25.511 Pain in right shoulder [...] 30 mL of Omnipaque 240 was injected unde r fluoroscopic guidance to confirm intra-articular needle placement. 6 mL of a mixture [...] right shoulder injection for MR arthrogram. 02/12/2018 [facility] Brain w/wo contrast MRI EXAM: MRI OF [...] is otherwise normal. 3. Normal orbits 06/16/2015 [facility] [place] Abdomen AP view Spot images fr om Cystoscopy show a left ureteral stent in good position. SL:13 12/11/2012 [facility] Kidney pyelogram retrograde RE TROGRADE PYELOGRAPHY COMPARISON: None IMPRESSION: Multiple fluoroscopic spot radiographs are submitted, demonstrating bilateral retrograde pyelography. Refer to the operating clinician's report for further discussion. SL: 13 12/04/2012 [facility] Consultation Notes No Data Provided for This Section Discharge Summaries No Data Provided for This Section History and Physicals No Data Provided for This Section Vital Signs Vital Sign Value Date Comments Source Systolic (mm Hg) 130 03/19/2018 [facility] Diastolic (mm Hg) 67 03/19/2018 [facility] Systolic (mm Hg) 141 03/19/2018 [facility] Diastolic (mm Hg) 69 03/19/2018 [facility] Systolic (mm Hg) 123 03/19/2018 [facility] Diastolic (mm Hg) 54 03/19/2018 [facility] Respitory Rate 19 03/19/2018 [facility] Respitory Rate 19 03/19/2018 [facility] Respitory Rate 23 03/19/2018 [facility] Heart Rate 79 03/19/2018 [facility] Heart Rate 75 03/19/2018 [facility] Temperature Oral (F) 97.9 F 03/13/2018 [facility] Heart Rate 65 03/13/2018 [facility] Height 182.88 cm 03/13/2018 [facility] Weight 175 03/13/2018 [facility] BMI Calculated 52.32 03/13/2018 [facility] Systolic (mm Hg) 156 12/11/2012 [facility] Diastolic (mm Hg) 55 12/11/2012 [facility] Diastolic (mm Hg) 72 12/11/2012 [facility] Systolic (mm Hg) 150 12/11/2012 [facility] Respitory Rate 17 12/11/2012 [facility] Systolic (mm Hg) 135 12/11/2012 [facility] Diastolic (mm Hg) 65 12/11/2012 [facility] Respitory Rate 14 12/11/2012 [facility] Respitory Rate 18 12/11/2012 [facility] Heart Rate 66 12/11/2012 [facility] Temperature Oral (F) 98.3 F 12/09/2012 [facility] Heart Rate 74 12/09/2012 [facility] Height 177.8 cm 12/09/2012 [facility] Weight 193.182 12/09/2012 [facility] Diastolic (mm Hg) 70 12/04/2012 [facility] Systolic (mm Hg) 144 12/04/2012 [facility] Respitory Rate 19 12/04/2012 [facility] Systolic (mm Hg) 146 12/04/2012 [facility] Diastolic (mm Hg) 75 12/04/2012 [facility] Systolic (mm Hg) 145 12/04/2012 [facility] Diastolic (mm Hg) 63 12/04/2012 [facility] Respitory Rate 16 12/04/2012 [facility] Respitory Rate 18 12/04/2012 [facility] Heart Rate 73 12/04/2012 [facility] Temperature Oral (F) 98.3 F 12/04/2012 [facility] Weight 193.182 12/04/2012 [facility] Height 177.8 cm 12/04/2012 [facility] Encounters Location Location Details Encounter Type Encounter Number Reason For Visit Attending Provider ADM Date DC Date Status Source [facility] DS [id number] MARIANN CEASAR 12/04/2012 12/04/2012 Discharged [facility] DS [id number] [facility] CEASAR 12/11/2012 12/11/2012 Discharged [facility] - [place] [facility] [id number] Baltazar Guerrero 06/16/2015 06/17/2015 [facility] [place] [facility] Out[facility] Imaging [facility] [id number] Oswald Wyatt 02/12/2018 02/13/2018 [facility] Day Surgery [id number] Oswald Fontanezn 03/19/2018 03/19/2018 [facility] [place] OP Therapy Patients [id number] Oswald Wyatt 04/07/2018 05/07/2018 [facility] [place] [facility] [id number] Oswald Fontanezn 05/07/2018 06/06/2018 [facility] [place] Procedures Procedure Code Date Perfomer Comments Source Injection procedure for shoulder arthrog bakari or enhanced CT/MRI shoulder arthrography [id number] 02/12/2018 [facility] Cystourethroscopy, with insertion of ind welling ureteral stent (eg, De Leon or double-J type) [id number] 12/11/2012 [facility] Cystourethroscopy, with ureteroscopy and /or pyeloscopy; with removal or manipulation of calculus (ureteral catheterization is included) 22237 12/11/2012 [facility] Transurethral Removal of Obstruction fro m Ureter and Renal Pelvis [id number] 12/11/2012 [facility] Ureteral Catheterization [id number] 953 12/11/2012 [facility] Shoulder joint operations<sup>1</sup> [id number] 03/10/2010 SLAP tear [facility] Harika casillas 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 [id number] 03/10/2007 [facility] Ritter, FIONA casillas,[facility] [place] 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<sup>1</sup> [id number] bone graft & metal [facility] [place] Shoulder joint operations [id number] [facility] [place] Stent placement [id number] [facility] Ablation [id number] [facility] Cardiac catheterization [id number] [facility] Cholecystectomy [id number] [facility] 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 <sup>1</sup> [id number] 1bone graft & metal plate [facility] Lithotripsy [id number] [facility] Shoulder joint operations [phone] [facility] 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 [id number] [facility] Ablation [id number] OPID He rmann, OPID [place], [facility] [place] Arthroplasty of knee [id number] [facility] [place],[facility] [place] Cardiac catheterization [id number] [phone] OPID [place], [facility] [place],[facility] [place] Cholecystectomy [id number] OPID [place], OPID [place],[facility] [place] 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<sup>2</sup> [id number] bone graft & metal plate OPILexi Ritter,[facility] Pasa sonja Lithotripsy [id number] OPID [facility], [facility] [place],[facility] [place] Stent placement [phone] OPILexi Ritter, OPID [place],[facility] [place] Assessment and Plan No Data Provided for This Section Plan of Care No Data Provided for This Section Social History Social History Date Source Social History TypeResponse Substance Abuse Use: None. Alcohol Never Smoking Status Never smoker; Exposure to Tobacco Smoke None; Cigarette Smoking Last 365 Days No; Reg Smoking Cessation Counseling No entered on: 03/13/18 03/13/2018 [facility] [place] Social History TypeResponse Substance Abuse Use: None. Alcohol Never Smoking Status Never smoker; Exposure to Tobacco Smoke None; Cigarette Smoking Last 365 Days No; Reg Smoking Cessation Counseling No entered on: 03/13/18 03/13/2018 [facility] Social History TypeResponse Substance Abuse Use: None. Alcohol Never Smoking Status Never smoker; Exposure to Tobacco Smoke None; Cigarette Smoking Last 365 Days No; Reg Smoking Cessation Counseling No entered on: 03/13/18 03/13/2018 [facility] No data available for this section 06/17/2015 [facility] Chaoadena Family History No Data Provided for This Section Advance Directives No Data Provided for This Section Functional Status No Data Provided for This Section
--- OUTSIDE RECORDS SUMMARY | 2019-08-11 09:37 | XMS REPORT | Summary of Care ---
Author Author [facility] Organization [facility] Address Unknown Phone Unavailable Encounter IESHA Rawls(SUSIE) [id number] Date(s): 03/19/18 - 03/19/18 [facility] [address] [place] [address]- [phone] Encounter Diagnosis Superior glenoid labrum lesion of right shoulder, initial encounter (Final) - 03/24/18 Strain of muscle, fascia and tendon of long head of biceps, right arm, initial e ncounter (Final) - Other synovitis and tenosynovitis, right shoulder (Final) - Loose body in right shoulder (Final) - Primary osteoarthritis, right shoulder (Final) - Morbid (severe) obesity due to excess calories (Final) - Body mass index (BMI) 50-59.9, adult (Final) - Essential (primary) hypertension (Final) - Gastro-esophageal reflux disease without esophagitis (Final) - Type 2 diabetes mellitus without complications (Final) - food and nutrition services supervisor (current) use of aspirin (Final) - Other pulmonary function technician (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 (Final) - Discharge Disposition: Home or Self Care Attending Physician: Oswald Wyatt Referring Physician: Oswald Wyatt Vital Signs 1 2 3 Most recent to oldest [Reference Range]: 182.88 cm (03/13/18 3:50 PM) Height 97.9 DegF (03/13/18 4:00 PM) Temperature Oral [96.4-99.1 DegF] 130/67 mmHg (03/19/18 10:30 AM) 141/69 mmHg *HI* (03/19/18 9:45 AM) 123/54 mmHg (03/19/18 9:30 AM) Blood Pressure [90-140/60-90 mmHg] 19 BRMIN (03/19/18 9:30 AM) 19 BRMIN (03/19/18 9:15 AM) 23 BRMIN *HI* (03/19/18 9:00 AM) Respiratory Rate [14-20 BRMIN] 79 bpm (03/19/18 8:51 AM) 75 bpm (03/19/18 6:57 AM) 65 bpm (03/13/18 4:00 PM) Peripheral Pulse Rate [60-100 bpm] 175 kg (03/13/18 3:50 PM) Weight 52.32 m2 (03/13/18 3:50 PM) Body Mass Index Problem List Condition Effective Dates Status Health Status Informan t Acid Active reflux(Confirmed) Back Resolved pain(Confirmed)1 Chest [...] Substance Reaction Severity Status penicillins Active Medications acetaminophen (ANES) Route: IV, Drug form: INJ, ONCE, Stop date: 03/19/18 8:57:00 CRM ANALYST Start Date: 03/19/18 Stop Date: 03/19/18 Status: Completed acetaminophen-hydrocodone 325 mg-5 mg oral tablet Route: PO, Dosing Weight 175, kg, Q4H, PRN Pain Score 4-6, Start date: 03/19/18 10:02:00 CRM ANALYST, Duration: 30 day, Stop date: 04/18/18 10:01:00 CRM ANALYST Start Date: 03/19/18 Stop Date: 03/19/18 Status: Discontinued amLODIPine-valsartan 5 mg-320 mg oral tablet 1 tab, PO, Daily, # 30 tab, 0 Refill(s) Start Date: 03/13/18 Status: Ordered ceFAZolin (ANES) Route: IV, Drug form: INJ, ONCE, Stop date: 03/19/18 8:57:00 CRM ANALYST Start Date: 03/19/18 Stop Date: 03/19/18 Status: Completed clindamycin 300 mg oral capsule 300 mg = 1 cap, PO, TID, X 15 day, # 45 cap, 0 Refill(s) Start Date: 03/19/18 Stop Date: 04/03/18 Status: Completed famotidine (ANES) Route: IV, Drug form: INJ, ONCE, Stop date: 03/19/18 8:57:00 CRM ANALYST Start Date: 03/19/18 Stop Date: 03/19/18 Status: Completed Farxiga 10 mg oral tablet 10 mg = 1 tab, PO, Daily, 0 Refill(s) Start Date: 03/13/18 Status: Ordered Glucosamine Chondroitin PO, Daily, 0 Refill(s) Start Date: 03/13/18 Status: Ordered glycopyrrolate (ANES) Route: IV, Drug form: INJ, ONCE, Stop date: 03/19/18 8:57:00 CRM ANALYST Start Date: 03/19/18 Stop Date: 03/19/18 Status: Completed hydromorphone 0.3 mg, Route: IVP, Q3H, Dosing Weight 175, kg, PRN Pain Score 4-6, Start date: 03/19/18 10:02:00 CRM ANALYST, Duration: 30 day, Stop date: 04/18/18 10:01:00 CRM ANALYST Start Date: 03/19/18 Stop Date: 03/19/18 Status: Discontinued ketOROLAC 15 mg, Route: IVP, Q6H, Dosing Weight 175, kg, Start date: 03/19/18 12:00:00 CRM ANALYST , Duration: 6 doses or times, Stop date: 03/20/18 18:00:00 CRM ANALYST Start Date: 03/19/18 Stop Date: 03/19/18 Status: Canceled Lactated Ringers Injection IV (ANES) 1000 mL Route: IV, Total Volume: 1,000, Start date: 03/19/18 7:53:00 CRM ANALYST, Stop date: 12/26 8:53:00 CRM ANALYST Start Date: 03/19/18 Stop Date: 03/19/18 Status: Completed Lactated Ringers Injection IV 1000 mL 1,000 mL, Rate: 25 ml/hr, Infuse over: 40 hr, Route: IV, Dosing Weight 175 kg, T otal Volume: 1,000, Start date: 03/19/18 6:56:00 CRM ANALYST, Duration: 30 day, Stop dionte e: 04/18/18 6:55:00 CRM ANALYST, 3.03, m2 Start Date: 03/19/18 Stop Date: 03/19/18 Status: Discontinued Lactated Ringers IV 1000 mL 1,000 mL, Rate: 100 ml/hr, Infuse over: 10 hr, Route: IV, Dosing Weight 175 kg, Total Volume: 1,000, Start date: 03/19/18 8:33:00 CRM ANALYST, Duration: 30 day, Stop da te: 04/18/18 8:32:00 CRM ANALYST, 3.03, m2 Start Date: 03/19/18 Stop Date: 03/19/18 Status: Discontinued lidocaine (ANES) Route: IV, Drug form: INJ, ONCE, Stop date: 03/19/18 8:57:00 CRM ANALYST Start Date: 03/19/18 Stop Date: 03/19/18 Status: Completed meclizine 25 mg oral tablet 25 mg = 1 tab, PO, PRN, 0 Refill(s) Start Date: 03/13/18 Status: Ordered metFORMIN 500 mg oral tablet 500 mg = 1 tab, PO, Bedtime, 0 Refill(s) Start Date: 03/13/18 Status: Ordered metoclopramide (ANES) Route: IV, Drug form: INJ, ONCE, Stop date: 03/19/18 8:57:00 CRM ANALYST Start Date: 03/19/18 Stop Date: 03/19/18 Status: Completed morphine Sulfate 2 mg, Route: IVP, Q3H, Dosing Weight 175, kg, PRN Pain Score 1-3, Start date: 10:02:00 CRM ANALYST, Duration: 30 day, Stop date: 04/18/18 10:01:00 CRM ANALYST Start Date: 03/19/18 Stop Date: 03/19/18 Status: Discontinued naloxone 0.04 mg, Route: IVP, Q2MIN, Dosing Weight 175, kg, PRN Narcotic Reversal, Start date: 03/19/18 8:33:00 CRM ANALYST, Duration: 30 day, Stop date: 04/18/18 8:32:00 CRM ANALYST Start Date: 03/19/18 Stop Date: 03/19/18 Status: Discontinued neostigmine (ANES) Route: IV, Drug form: INJ, ONCE, Stop date: 03/19/18 8:57:00 CRM ANALYST Start Date: 03/19/18 Stop Date: 03/19/18 Status: Completed ondansetron (ANES) Route: IV, Drug form: INJ, ONCE, Stop date: 03/19/18 8:57:00 CRM ANALYST Start Date: 03/19/18 Stop Date: 03/19/18 Status: Completed pantoprazole 40 mg oral enteric coated tablet 40 mg = 1 tab, PO, Daily, 0 Refill(s) Start Date: 03/13/18 Status: Ordered Phenergan 25 mg, Route: IVPB, Q4H, Dosing Weight 175, kg, PRN Nausea & Vomiting, Start date: 03/19/18 10:02:00 CRM ANALYST, Duration: 30 day, Stop date: 04/18/18 10:01:00 CRM ANALYST Start Date: 03/19/18 Stop Date: 03/19/18 Status: Discontinued propofol (ANES) Route: IV, Drug form: INJ, ONCE, Stop date: 03/19/18 8:57:00 CRM ANALYST Start Date: 03/19/18 Stop Date: 03/19/18 Status: Completed rocuronium (ANES) Route: IV, Drug form: INJ, ONCE, Stop date: 03/19/18 8:57:00 CRM ANALYST Start Date: 03/19/18 Stop Date: 03/19/18 Status: Completed Super B Complex oral tablet PO, Daily, 0 Refill(s) Start Date: 03/13/18 Status: Ordered tramadol 50 mg, Route: PO, Drug form: TAB, Q6H, Dosing Weight 175, kg, PRN Pain Score 1-3 , Start date: 03/19/18 10:02:00 CRM ANALYST, Duration: 30 day, Stop date: 04/18/18 10:01 :00 CRM ANALYST Start Date: 03/19/18 Stop Date: 03/19/18 Status: Discontinued vancomycin (ANES) Route: IV, Drug form: INJ, ONCE, Stop date: 03/19/18 8:57:00 CRM ANALYST Start Date: 03/19/18 Stop Date: 03/19/18 Status: Completed Zofran 4 mg, Route: IV, Drug form: INJ, Q4H, Dosing Weight 175, kg, PRN Nausea, Start d ate: 03/19/18 10:02:00 CRM ANALYST, Duration: 30 day, Stop date: 04/18/18 10:01:00 CRM ANALYST Start Date: 03/19/18 Stop Date: 03/19/18 Status: Discontinued Results Most recent to 1 oldest [Reference Range]: Neutrophils # 5.3 K/CMM [1.5-8.1 K/CMM] (03/13/18 4:43 PM) Lymphocytes # 2.6 K/CMM [1.0-5.5 K/CMM] (03/13/18 4:43 PM) Monocytes # [0.0-0.8 0.7 K/CMM K/CMM] (03/13/18 4:43 PM) Eosinophils # 0.3 K/CMM [0.0-0.5 K/CMM] (03/13/18 4:43 PM) eGFR 70 mL/min/1.73m2 1 *NA* (03/13/18 4:43 PM) AGAP [10.0-20.0 9.8 mEq/L mEq/L] *LOW* (03/13/18 4:43 PM) Basophils [0.0-1.0 0.5 % %] (03/13/18 4:43 PM) BUN [7-22 mg/dL] 16 mg/dL (03/13/18 4:43 PM) Calcium Lvl 9.0 mg/dL [8.5-10.5 mg/dL] (03/13/18 4:43 PM) Chloride Lvl [95-109 104 mEq/L mEq/L] (03/13/18 4:43 PM) CO2 [24-32 mEq/L] 30 mEq/L (03/13/18 4:43 PM) Creatinine Lvl 1.16 mg/dL [0.50-1.40 mg/dL] (03/13/18 4:43 PM) Eosinophils [0.0-4.0 2.9 % %] (03/13/18 4:43 PM) Glucose Lvl [70-99 135 mg/dL mg/dL] *HI* (03/13/18 4:43 PM) Hct [42.0-54.0 %] 43.2 % (03/13/18 4:43 PM) Hgb [14.0-18.0 g/dL] 14.3 g/dL (03/13/18 4:43 PM) Hgb A1C [<=5.6 %] 7.8 % *HI* (03/13/18 4:43 PM) Potassium Lvl 3.8 mEq/L [3.5-5.1 mEq/L] (03/13/18 4:43 PM) Lymphocytes 28.6 % [20.0-40.0 %] (03/13/18 4:43 PM) MCH [27.0-31.0 pg] 28.0 pg (03/13/18 4:43 PM) MCHC [32.0-36.0 33.1 g/dL g/dL] (03/13/18 4:43 PM) MCV [80.0-94.0 fL] 84.6 fL (03/13/18 4:43 PM) Monocytes [2.0-12.0 8.3 % %] (03/13/18 4:43 PM) MPV [7.4-10.4 fL] 8.8 fL (03/13/18 4:43 PM) Sodium Lvl [135-145 140 mEq/L mEq/L] (03/13/18 4:43 PM) Platelet [133-450 229 K/CMM K/CMM] (03/13/18 4:43 PM) Segs [45.0-75.0 %] 59.7 % (03/13/18 4:43 PM) RBC [4.70-6.10 5.11 M/CMM M/CMM] (03/13/18 4:43 PM) RDW [11.5-14.5 %] 15.1 % *HI* (03/13/18 4:43 PM) WBC [3.7-10.4 K/CMM] 8.9 K/CMM (03/13/18 4:43 PM) 1Result Comment: The eGFR is calculated using [...] be mul tiplied by the estimated BMI. Immunizations No data available for this section Procedures Procedure Date Related Diagnosis Body Site Status Shoulder joint operations1 2010 Completed TKR -Total [...] Never Smoking Status Never smoker; Exposure to T obacco Smoke None; Cigarette Smoking Last 365 Days No; Reg Smoking Cessation Counseli ng No entered on: 03/13/18 Assessment and Plan No data available for this section
--- OUTSIDE RECORDS SUMMARY | 2019-08-11 09:38 | XMS REPORT | Continuity of Care Document ---
Author Author [facility] t Organization [facility] Address [address] [place] [address] Phone Unavailable Care Team Providers Care Artificial Pearl Maker Name Role Phone KARTHIKEYAN GUERRERO DO PCP [facility] Attphys Unavailable CHARI EPPS Attphys Unavailable NAVARRO CHONG Attphys Unavailable DOMENIC CHAPMAN Attphys Unavailable Brooke BENDER, Farheen Myers Attphys Lala Rodriguez MD Attphys [phone] CASTANEDA, SOUHEIL Attphys Unavailable Soto Wyatt Attphys RASHMI, HIGGINS Attphys Unavailable Spencer Guerrero Attphys CASTANEDA, SOUHEIL Admphys Unavailable RASHMI, HIGGINS Admphys Unavailable Payers Payer Name Policy Type Policy Number Effective Date Expiration Date S jasen [employer] [place] Ppo [id number] 2019 00:00:00 [facility] BCBSBCBS OUT OF [id number]-PresentPPO xxxxxxxxxxxxxxx 2018 00:00:00 [place] [facility] Problems Condition Name Condition Details Condition Category Status Onset Date Resolution Date Last Treatment Date Treating Clinician Comments Source MAMIEK UNK Active 03/04/2018 [facility] Active 2018-03-04 00:00:00 2018-03-19 06:00:00 M [facility] RT SHOULDER RT S HOULDER Active 10/08/2017 [facility] [place] Diagnosis Active 2017-10-08 08:00:00 2018-05-07 15:58:00 [facility] [place] 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 H 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 H Active 05/31/2015 [facility] [place] Diagnosis Active 2015-05-31 00:01:00 2015-06-16 12:29:00 M H [facility] [place] ICD NOT GIVEN / CPT 78269 [id number] ICD NOT GIVEN / CPT 23025 [id number] Active 12/04/2012 [facility] Diagnosis Ac tive 2012-12-04 00:00:00 2012-12-11 09:31:00 M H [facility] STONE 592.0 592.1/CPT 43783 38014 STONE 592.0 592.1/CPT 17170 30590 Active 12/03/2012 [facility] Diagnosis Active 12-03 00:00:00 2012-12-04 09:25:00 [facility] Fever Fever Problem Active [facility] Pneumonia Pneumonia Problem Active [facility] Pyelonephritis Pyelonephritis Problem Active [facility] Hydronephrosis Hydronephrosis Problem Active [facility] Renal insufficiency Renal insufficiency Problem Active [facility] Calculus of ureter Ureterolithiasis Problem Active [facility] Incomplete rotator cuff tear or rupture of right shoulder, not specified as traumatic Incomplete rotat or cuff tear or rupture of right shoulder, not specified as traumatic 09/02/2018 [facility] Problem 2018-09-02 11:20:31 [facility] Bicipital tendinitis, right shoulder Bicipital tendinitis, right shoulder 09/02/2018 [facility] Problem 2018-09-02 11:20:31 [facility] Effusion, left knee Effu altagracia, left knee 09/02/2018 [facility] Problem 2018-09-02 11:20:31 [facility] Pain in left knee Pain in left knee 09/02/2018 [facility] Problem 2018-09-02 11:20:31 [facility] Acid reflux Acid reflux Active Problem 12/18/2012 [facility] Problem Active 2012-12-18 02:08:29 [facility] Back pain Back pain Active Problem 12/18/2012 1lumbar [facility] Problem Active 2012-12-18 02:08:29 [facility] Chest pain Ches t pain Resolved Problem 12/18/2012 Dx as acid reflux [facility] Problem Resolved 2012-12-18 02: 08:29 [facility] Foot swelling Foot swelling Active Problem 12/18/2012 [facility] Problem Active 2012-12-18 02:08:29 [facility] GERD - Gastro-esophageal reflux disease GERD - Gastro- esophageal reflux disease Active Problem 12/18/2012 [facility] Problem A ctive 2012-12-18 02:08:29 [facility] HTN - Hypertension HTN - Hypertension Active Problem 12/18/2012 [facility] Problem Active 2012-12-18 02:08:29 [facility] Obese Obes e Active Problem 12/18/2012 [facility] Problem Active 2012-12-18 02:08:29 [facility] Poor peripheral circulation Po or peripheral circulation Resolved Problem 12/18/2012 3swelling to LE [facility] Problem Resolved 2012-12-18 02:08:29 [facility] Renal stone Kusum l stone Active Problem 12/18/2012 [facility] Problem Active 2012-12-18 02:08:29 [facility] Retained ureteral stent Vandana ined ureteral stent Active Problem 12/18/2012 4left [facility] Problem Active 2012-12-18 02:0 8:29 [facility] Sleep apnea Slee p apnea Active Problem 12/18/2012 5uses CPAP [facility] Problem Active 2012-12-18 02:08:29 [facility] Strain of muscle, fascia and tendon of l jigna head of biceps, right arm, initial encounter Strain of muscle , fascia and tendon of long head of biceps, right arm, initial encounter 10/06/2018 [facility] Problem 2018-10-06 14:18:02 [facility] Other synovitis and tenosynovitis, right shoulder Other synovitis and tenosynovitis, right shoulder 10/06/2018 [facility] Problem 2018-10-06 14:18:02 [facility] Loose body in right shoulder L oose body in right shoulder 10/06/2018 [facility] Problem 2018-10-06 14:1 8:02 [facility] Primary osteoarthritis, right shoulder Primary osteoarthritis, right shoulder 10/06/2018 [facility] Problem 2018-10-06 14:18:02 [facility] Morbid (severe) obesity due to excess calories Morbid (severe) obesity due to excess calories 10/06/2018 [facility] Problem 2018-10-06 14:18:02 [facility] Body mass index (BMI) 50-59.9 , adult Body mass index (BMI) 50-59.9 , adult 10/06/2018 [facility] Problem 2018-10-06 14:18:02 [facility] Essential (primary) hypertension Essential (primary) hypertension 10/06/2018 [facility] Problem 2018-10-06 14:18:02 [facility] Gastro-esophageal reflux disease without esophagitis Gastro-esophageal reflux disease without esophagitis 10/06/2018 [facility] Problem 2018-10-06 14:18:02 [facility] Type 2 diabetes mellitus without complications Type 2 diabetes mellitus without complications 10/06/2018 [facility] Problem 2018-10-06 14:18:02 [facility] FDC (current) use of aspirin FDC (current) use of aspirin 10/06/2018 [facility] Problem 2018-09-09 0 14:18:02 [facility] Other custodial (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 Other medical terminologist (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 10/06/2018 [facility] Problem 2018-10-06 14:18:02 [facility] Gastroesophageal reflux disease (disorder) Gastroesophageal reflux disease (disorder) Active Problem 10/06/2018 FIONA Ritter, [facility] [place],[facility], [facility] [place] Problem Active 2018-10-06 14:18:02 FIONA Ritter, OPILexi [place], [facility], [facility] [place] Backache (finding) Back ache (finding) Resolved Problem 10/06/2018 lumbar FIONA Ritter, F[facility]A [place],[facility], [facility] [place] Problem Resolved 2018-10-06 14:18:02 FIONA Ritter F[facility]A [place], [facility], [facility] [place] Chest pain (finding) Ches t pain (finding) Resolved Problem 10/06/2018 7/13 Dx as acid reflux FIONA Ritter, FIONA [place],[facility], [facility] [place] Problem Resolved 2018-10-06 14:18:02 FIONA Ritter, [facility] [place], [facility], [facility] [place] Diabetes mellitus (disorder) D iabetes mellitus (disorder) Active Problem 10/06/2018 FIONA Ritter,[facility], [facility] [place] Problem Active 2018-10-06 14:18:02 FIONA Ritter, [facility], [facility] [place] Foot swelling (finding) Foot swelling (finding) Active Problem 10/06/2018 FIONA Ritter, [facility] [place],[facility] [place] Problem Active 2018-10-06 14:18:02 FIONA Ritter, [facility] [place], [facility], [facility] [place] Hypertensive disorder, systemic arterial (disorder) Hypertensive disorder, systemic arterial (disorder) Active Problem 10/06/2018 FIONA Ritter, [facility] [place],[facility] [place] Problem A ctive 2018-10-06 14:18:02 FIONA elias, [facility] [place], [facility], [facility] [place] Injury of superior glenoid labrum of shoulder joint (d isorder) Injury of superior glenoid labrum of shoulder joint (disorder) Active Problem 10/06/2018 FIONA Ritter,[facility] [place] Problem Active 2018-10-06 14:18:02 FIONA Ritter, [facility], [facility] [place] Obese (finding) Obes e (finding) Active Problem 10/06/2018 FIONA Ritter, [facility] [place],[facility] [place] Problem A ctive 2018-10-06 14:18:02 FIONA elias, [facility] [place], [facility], [facility] [place] Poor peripheral circulation (disorder) Poor peripheral circulation (disorder) Resolved Problem 10/06/2018 swelling to LE FIONA Ritter, [facility] [place],[facility], [facility] [place] Problem Resolved 2018-10-06 14:18:02 FIONA Ritter, [facility] [place], [facility], [facility] [place] Kidney stone (disorder) Kidn ey stone (disorder) Resolved Problem 10/06/2018 FIONA Ritter, [facility] [place],[facility] [place] Problem Resolved 2018-10-06 14:18:02 [facility], [facility] [place], [facility], [facility] [place] Retained ureteric stent (disorder) Retained ureteric stent (disorder) Resolved Problem 10/06/2018 left MH [facility] [place], [facility] [place], [facility], [facility] [place] Problem Resolved 2018-10-06 14:18:0 2 [facility] [place], [facility] [place], [facility], [facility] [place] Sleep apnea (finding) Slee p apnea (finding) Active Problem 10/06/2018 uses CPAP IRWIND [place], [facility] [place], [facility] [place] Problem Active 2018-10-06 14:18:02 O PID [place], [facility] [place], [facility], [facility] [place] glenoid labrum lesion of right shoulder, init ial encounter [place] glenoid labrum lesion of right shoulder, initial encounter 03/25/2018 10/06/2018 [facility] Problem 2018-03-25 04:5 9:23 2018-10-06 14:18:02 2018-10-06 14:18:02 [facility] Impingement syndrome of right shoulder Impingement syndrome of right shoulder 02/21/2018 09/02/2018 FIONA [facility]itter Problem 2018-02-21 05:43:43 2018-09-02 11:20:31 2018-09-02 11:20:31 FIONA Ritter Allergies, Adverse Reactions, Alerts Allergy Name Allergy Type Status Severity Reaction(s) Onset Date Inacti ve Date Treating Clinician Comments Source Penicillins Propensity to adverse reactions to drug Active Rash 2018-10-09 00:00:00 Jose Luis starkey Penicillins DA Active CT 2013-12-14 00:00:00 [facility] Penicillin Allergy to Substance Active Mild RASH 2012-04-09 00:00:00 [facility] penicillins penicillins Active [facility] Family History Family Member Diagnosis Comments Start Date Stop Date Source Maternal grandmother Diabetes [facility] Yazidi Natural mother Diabetes [facility] Social History Social Habit Start Date Stop Date Quantity Comments Source History SDOH Alcohol Std Drinks Amaya Yazidi History SDOH Alcohol Binge Am[place] Yazidi Sex Assigned At Jonel maria isabel Yazidi Alcohol intake 2018-10-15 00:00:00 2018-10-15 00:00:00 Lifetime non-drinker (finding) Jose Luis Bermudezist History SDOH Alcohol Frequency 2018-10-09 00:00:00 2018-10-09 00:00:0 0 1 Jose Luis Mejia Social History 2015-06-17 04:59:00 2015-06-17 04:59:00 [facility] Smoking Status Start Date Stop Date Source Never smoker Jose Luis Giordano t Medications Ordered Medication Name Filled Medication Name Start Date Stop Da te Current Medication? Ordering Clinician Indication Dosage Frequency Signature (SIG) Comments Components Source Acetaminophen With Codeine (Tylenol With Codeine #3 Ta blet) 1 Each Tablet Acetaminophen With Codeine (Tylenol With Codeine #3 Tablet) 1 Each Tablet 2019-04-01 00:00:00 Yes Nba Thakkar Leveler 300 Every 4 Hours for Pain [facility] Levofloxacin (Levaquin) 750 Mg Tablet Levofloxacin (Levaquin ) 750 Mg Tablet 2019-04-01 00:00:00 Yes Nba Thakkar Leveler 750 Daily [facility] Ondansetron Hcl (Zofran*) 4 Mg Tablet Ondansetron Hcl (Zofra n*) 4 Mg Tablet 2019-04-01 00:00:00 Yes Nba Thakkar Leveler 4 Every 6 Hours as needed for Nausea [facility] Tamsulosin Hcl (Flomax*) 0.4 Mg Cap Tamsulosin Hcl (Flomax*) 0.4 Mg Cap 2019-04-01 00:00:00 Yes Nba Thakkar Leveler .4 Daily [facility] dapagliflozin (FARXIGA) 5 mg tablet 2018-10-14 16:19:34 Yes 5mg QD Take 5 mg by mouth daily. Jose Luis Mejia triamterene-hydrochlorothiazid (MAXZIDE) 75-50 mg per tablet 2018-10-14 16:19:34 Yes 1{tbl} QD Take 1 tablet by mouth daily. Jose Luis Mejia amlodipine-valsartan (EXFORGE) 5-320 mg per tablet 2018-10 16:19:34 Yes 1{tbl} QD Take 1 tablet by mouth daily. Jose Luis Mejia meloxicam (MOBIC) 15 mg tablet 2018-10-14 16:19:34 Yes 15mg QD Take 15 mg by mouth daily. Jose Luis Mejia pantoprazole (PROTONIX) 40 MG EC tablet 2018-10-14 16:19:34 Yes 40mg QD Take 40 mg by mouth daily. Jose Luis tang atorvastatin (LIPITOR) 20 MG tablet 2018-10-14 16:19:34 Yes 20mg QD Take 20 mg by mouth daily. Default OP ins Jonel stoyovani Mejia metFORMIN (GLUCOPHAGE) 500 mg tablet 2018-10-14 16:19:34 Ye s 500mg Q.5D Take 500 mg by mouth 2 (two) times a day with meals. Jose Luis Mejia nebivolol (BYSTOLIC) 20 mg tablet 2018-10-14 16:19:34 Yes 20mg QD Take 20 mg by mouth daily. Jose Luis Mejia meclizine (ANTIVERT) 25 mg tablet 2018-10-14 16:19:34 Ye s 25mg [id number] Take 25 mg by mouth 3 (three) times a da y as needed for dizziness. Jose Luis Mejia B complex with C#20-folic acid 1 mg capsule 2018-10-14 16:19:34 Yes QD Take by mouth daily. Jose Luis alexandra glucosam/chond/collagen/hyalur (VIRINOOD-PIFJ-FDSUQI-HYALUR AC ORAL) 2018-10-14 16:19:34 Yes Take by mouth. Jose Luis Mejia Ketorolac 2018-03-19 18:00:00 No 15 mg, Route: IVP, Q6H, Dosing Weight 175, kg, Start date: 03/19/18 12:00:00 [employer], Duration: 6 doses or times, Stop date: 03/20/18 18:00:00 [employer]INEER DANIEL [place]ast Phenergan 2018-03-19 16:02:00 No 25 mg, Route: IVPB, Q4H, Dosing Weight 175, kg, PRN Nausea & Vomiting, Start date: 03/19/18 10:02:00 [employer], Duration: 30 day, Stop date: 04/18/18 10:01:00 [employer] [place] Zofran 2018-03-19 16:02:00 No 4 mg, Route: IV, Drug form: INJ, Q4H, Dosing Weight 175, kg, PRN Nausea, Start date: 03/19/18 10:02:00 [employer], Duration: 30 day, Stop date: 04/18/18 10:01:00 [employer] [facility] Morphine 2018-03-19 16:02:00 No 2 mg, Route: IVP, Q3H, Dosing Weight 175, kg, PRN Pain Score 1-3, Start date: 03/19/18 10:02:00 [employer], Duration: 30 day, Stop date: 04/18/18 10:01:00 [employer] [facility] Tramadol 2018-03-19 16:02:00 No 50 mg, Route: PO, Drug form: TAB, Q6H, Dosing Weight 175, kg, PRN Pain Score 1-3, Start date: 03/19/18 10:02:00 [employer], Duration: 30 day, Stop date: 04/18/18 10:01:00 [employer] [facility] Hydromorphone 2018-03-19 16:02:00 No 0.3 mg, Route: IVP, Q3H, Dosing Weight 175, kg, PRN Pain Score 4-6, Start date: 03/19/18 10:02:00 [employer], Duration: 30 day, Stop date: 04/18/18 10:01:00 [employer] [facility] Acetaminophen 325 MG / Hydrocodone Bitartrate 5 MG Oral Tabl et 2018-03-19 16:02:00 No Route: PO, Dosing Weight 175, kg, Q4H, PRN Pain Score 4-6, Start date: 03/19/18 10:02:00 [employer], Duration: 30 day, Stop date: 04/18/18 10:01:00 [employer] [facility] ceFAZolin (ANES) 2018-03-19 14:57:00 No Route: IV, Drug form: INJ, ONCE, Stop date: 03/19/18 8:57:00 [employer] [facility] neostigmine (ANES) 2018-03-19 14:57:00 No Route: IV, Drug form: INJ, ONCE, Stop date: 03/19/18 8:57:00 [employer] [facility] glycopyrrolate (ANES) 2018-03-19 14:57:00 No Route: IV, Drug form: INJ, ONCE, Stop date: 03/19/18 8:57:00 [employer] [facility] propofol (ANES) 2018-03-19 14:57:00 No Route: IV, Drug form: INJ, ONCE, Stop date: 03/19/18 8:57:00 [employer] [facility] rocuronium ([facility]) 2018-03-19 14:57:00 No Route: IV, Drug form: INJ, ONCE, Stop date: 03/19/18 8:57:00 [employer] ENGINEER [facility] famotidine ([facility]) 2018-03-19 14:57:00 No Route: IV, Drug form: INJ, ONCE, Stop date: 03/19/18 8:57:00 [employer] ENGINEER [facility] acetaminophen ([facility]) 2018-03-19 14:57:00 No Route: IV, Drug form: INJ, ONCE, Stop date: 03/19/18 8:57:00 [employer] ENGINE[employer] [facility] metoclopramide ([facility]) 2018-03-19 14:57:00 No Route: IV, Drug form: INJ, ONCE, Stop date: 03/19/18 8:57:00 [employer] ENGINEER [facility] ondansetron ([facility]) 2018-03-19 14:57:00 No Route: IV, Drug form: INJ, ONCE, Stop date: 03/19/18 8:57:00 [employer] ENGINEER [facility] vancomycin ([facility]) 2018-03-19 14:57:00 No Route: IV, Drug form: INJ, ONCE, Stop date: 03/19/18 8:57:00 [employer] ENGINEER [facility] lidocaine ([facility]) 2018-03-19 14:57:00 No Route: IV, Drug form: INJ, ONCE, Stop date: 03/19/18 8:57:00 [employer] ENGINE[employer] [facility] Naloxone 2018-03-19 14:33:00 No 0.04 mg, Route: IVP, Q2MIN, Dosing Weight 175, kg, PRN Narcotic Reversal, Start date: 03/19/18 8:33:00 [employer] ENG[employer]ER, Duration: 30 day, Stop date: 04/18/18 8:32:00 [employer] ENGINEER [facility] Lactated Ringers IV 1000 mL 2018-03-19 14:33:00 No 1,000 mL, Rate: 100 ml/hr, Infuse over: 10 hr, Route: IV, Dosing Weight 175 kg, Total Volume: 1,000, Start date: 03/19/18 8:33:00 [employer] ENGINEER, Duration: 30 day, Stop date: 04/18/18 8:32:00 S[employer]IOR [employer] END ENGINEER, 3.03, m2 [facility] Lactated Ringers Injection IV (ANES) 1000 mL 2018-03-19 13:53:00 No Route: IV, Total Volume: 1,000, Start date: 03/19/18 7:53:00 S[employer]IOR [employer] ENGINEER, Stop date: 03/19/18 8:53:00 [employer] ENGINEER [facility] Calcium Chloride 0.0014 MEQ/ML / Potassi um Chloride 0.004 MEQ/ML / Sodium Chloride 0.103 MEQ/ML / Sodium Lactate 0.028 MEQ/ML Injectable Solution 2018-03-19 12:56:00 No 1,000 mL, Rate: 25 ml/hr, Infuse over: 40 hr, Route: IV, Dosing Weight 175 kg, Total Volume: 1,000, Start date: 03/19/18 6:56:00 [employer]IOR [employer] ENGINEER, Duration: 30 day, Stop date: 04/18/18 6:55:00 S[employer]IOR [employer] END ENGINEER, 3.03, m2 [facility] clindamycin 300 mg oral capsule 2018-03-19 11:49:00 No 300 mg = 1 cap, PO, TID, X 15 day, # 45 cap, 0 Refill(s) [facility] meclizine 25 mg oral tablet 2018-03-13 21:56:00 Yes 25 mg = 1 tab, PO, PRN, 0 Refill(s) [facility] Metformin hydrochloride 500 MG Oral Tablet 2018-03-13 21:55:00 Yes 500 mg = 1 tab, PO, Bedtime, 0 Refill(s) [facility] pantoprazole 40 mg oral enteric coated tablet 2018-03-13 21:55:0 0 Yes 40 mg = 1 tab, PO, Daily, 0 Refill(s) [facility] Amlodipine 5 MG / valsartan 320 MG Oral Tablet 2018-03-13 21:55: 00 Yes 1 tab, PO, Daily, # 30 tab, 0 Refill(s) [facility] Glucosamine Chondroitin 2018-03-13 21:54:00 Yes PO, Daily, 0 Refill(s) [facility] Super B Complex oral tablet 2018-03-13 21:54:00 Yes PO, Daily, 0 Refill(s) [facility] dapagliflozin propanediol 10 MG Oral Tablet [Stefanxiga] 2018-03-13 21:54:00 Yes 10 mg = 1 tab, PO, Daily, 0 Refill(s) [facility] ketorolac 2012-12-11 23:00:00 No Baldev Owens Nicolas 15 mg, 1 mL, Route: IVP, Drug form: INJ, Q6H, Dosing Weight 193.182, kg, Start date: 12/11/12 18:00:00, Duration: 6 doses or times, Stop date: 12/13/12 0:00:00 [facility] Lactated Ringers Injection IV 1000 mL 2012-12-11 18:42:00 No Shruthi Leung Maxian 1,000 mL, Rate: 50 m l/hr, Infuse over: 20 hr, Route: IV, Dosing Weight 193.182 kg, Total Volume: 1,000, Start date: 12/11/12 13:42:00, Duration: 30 day, Stop date: 01/10/13 13:41:00 [facility] theast acetaminophen-hydrocodone 325 mg-5 mg oral tablet 18:42:00 No Shruthi Leung Maxian 1 tab, Route: PO , Dosing Weight 193.182, kg, Q4H, PRN Pain Score 1-3, Start date: 12/11/12 13:42:00, Duration: 30 day, Stop date: 01/10/13 13:41:00 [facility] naloxone 2012-12-11 18:42:00 No Shruthi Leung Maxian 0.04 mg, Route: IVP, Q2MIN, Dosing Weight 193.182, kg, PRN Narcotic Reversal, Start date: 12/11/12 13:42:00, Duration: 8 doses or times, Stop date: Limited # of times [facility] ondansetron 2012-12-11 18:42:00 No Shruthi Leung Maxian 4 mg, Route: IVP, ONCE, Dosing Weight 193.182, kg, PRN Nausea & Vomiting, Start date: 12/11/12 13:42:00 [facility] hydromorphone 2012-12-11 18:42:00 No Shruthi Leung Maxian 0.5 mg, Route: IVP, Q5Min, Dosing Weight 193.182, kg, PRN Pain Score 7-10, Start date: 12/11/12 13:42:00, Duration: 5 doses or times, Stop date: Limited # of times [facility] fentanyl 2012-12-11 18:42:00 No Raphael Morales 25 microgram, Route: IVP, Q5Min, Dosing Weight 193.182, kg, PRN Pain Score 4-6, Start date: 12/11/12 13:42:00, Duration: 4 doses or times, Stop date: Limited # of times [facility] flumazenil 2012-12-11 18:42:00 No Shruthi Leung Johan 0.2 mg, Route: IVP, PRN, Dosing Weight 193.182, kg, PRN Benzodiazepine Reversal, Initial dose, Start date: 12/11/12 13:42:00, Duration: 30 day, Stop date: 01/10/13 12:41:00 [facility] morphine Sulfate 2012-12-11 18:27:00 No Baldev Owens Calie n 2 mg, 1 mL, Route: IVP, Drug form: INJ, Q3H, Dosing Weight 193.182, kg, PRN Pain Score 1-3, Start date: 12/11/12 13:27:00, Duration: 30 day, Stop date: 01/10/13 13:26:00 [facility] acetaminophen-hydrocodone 325 mg-10 mg oral tablet 2012-12 18:27:00 No Baldev Owens Nicolas 1 tab, Route: P O, Drug Form: TAB, Dosing Weight 193.182, kg, Q4H, PRN Pain Score 4-6, Start date: 12/11/12 13:27:00, Duration: 30 day, Stop date: 01/10/13 13:26:00 [facility] gentamicin + Sodium Chloride 0.9% IV 100 mL 2012-12-11 18: 00:00 No Baldev Owens Nicolas 120 mg, 3 mL, Ro brendan: IVPB, Drug form: INJ, ONCALL, Dosing Weight 193.182, kg, Start date: 12/11/12 13:00:00, Duration: 30 day, Stop date: 01/10/13 11:59:00 [facility] Levaquin 2012-12-11 18:00:00 No Baldev Owens Nicolas 500 mg, 100 mL, Route: IV, Drug form: INJ, ONCALL, Dosing Weight 193.182, kg, Start date: 12/11/12 13:00:00 [facility] Lactated Ringers Injection IV 1000 mL 2012-12-11 16:27:00 No Yosef Madiha Nick 1,000 mL, Rate: 25 ml/hr, Infuse over: 40 hr, Route: IV, Dosing Weight 193.182 kg, Total Volume: 1,000, Start date: 12/11/12 11:27:00, Duration: 30 day, Stop date: 01/10/13 11:26:00 [facility] labetalol 2012-12-04 18:04:00 No Delroy Crum 5 mg, Route: IVP, Q5Min, Dosing Weight 193.182, kg, PRN Elevated BP, Start date: 12/04/12 13:04:00, Duration: 5 doses or times, Stop date: Limited # of times [facility] esmolol IV Push 2012-12-04 18:04:00 No Delroy Luque Bake r 10 mg, Route: IVP, Q5Min, Dosing Weight 193.182, kg, PRN Elevated BP, Start date: 12/04/12 13:04:00, Duration: 5 doses or times, Stop date: Limited # of times [facility] hydrALAZINE 2012-12-04 18:04:00 No Delroy Crum 5 mg, Route: IVP, Q5Min, Dosing Weight 193.182, kg, PRN Elevated BP, Start date: 12/04/12 13:04:00, Duration: 4 doses or times, Stop date: Limited # of times [facility] acetaminophen-hydrocodone 325 mg-5 mg oral tablet 18:04:00 No Delroy Crum 1 tab, Route: PO, Dosing Weight 193.182, kg, Q4H, PRN Pain Score 1-3, Start date: 12/04/12 13:04:00, Duration: 30 day, Stop date: 01/03/13 13:03:00 [facility] hydromorphone 2012-12-04 18:04:00 No Delroy Crum 0.5 mg, Route: IVP, Q5Min, Dosing Weight 193.182, kg, PRN Pain Score 7-10, Start date: 12/04/12 13:04:00, Duration: 5 doses or times, Stop date: Limited # of times [facility] ketorolac 2012-12-04 18:04:00 Yes Delroy Crum 30 mg, Route: IVP, ONCE, Dosing Weight 193.182, kg, Start date: 12/04/12 13:04:00, Duration: 1 doses or times, Stop date: 12/04/12 13:04:00 [facility] naloxone 2012-12-04 18:04:00 No Delroy Luque Crum 0.04 mg, Route: IVP, Q2MIN, Dosing Weight 193.182, kg, PRN Narcotic Reversal, Start date: 12/04/12 13:04:00, Duration: 8 doses or times, Stop date: Limited # of times [facility] dexamethasone 2012-12-04 18:04:00 No Delroy Luque Crum 4 mg, Route: IVP, ONCE, Dosing Weight 193.182, kg, PRN Nausea & Vomiting, Start date: 12/04/12 13:04:00 [facility] ondansetron 2012-12-04 18:04:00 No Delroy Luque Crum 4 mg, Route: IVP, ONCE, Dosing Weight 193.182, kg, PRN Nausea & Vomiting, Start date: 12/04/12 13:04:00 [facility] flumazenil 2012-12-04 18:04:00 No Delroy Luque Crum 0.2 mg, Route: IVP, PRN, Dosing Weight 193.182, kg, PRN Benzodiazepine Reversal, Initial dose, Start date: 12/04/12 13:04:00, Duration: 30 day, Stop date: 01/03/13 13:03:00 [facility] morphine Sulfate 2012-12-04 17:57:00 No Baldev Coleman n 2 mg, Route: IVP, Q3H, Dosing Weight 193.182, kg, PRN Pain Score 1-3, Start date: 12/04/12 12:57:00, Duration: 30 day, Stop date: 01/03/13 12:56:00 [facility] acetaminophen-hydrocodone 325 mg-10 mg oral tablet 2012-11 17:57:00 No Baldev Nicolas 1 tab, Route: P O, Dosing Weight 193.182, kg, Q4H, PRN Pain Score 4-6, Start date: 12/04/12 12:57:00, Duration: 30 day, Stop date: 01/03/13 12:56:00 [facility] gentamicin 2012-12-04 16:27:00 No Baldev Owens Nicolas 120 mg, Route: IVPB, ONCE, Dosing Weight 193.182, kg, Start date: 12/04/12 11:27:00, Stop date: 12/04/12 11:27:00 [facility] Levaquin 2012-12-04 16:27:00 No Baldev Owens Nicolas 500 mg, Route: IVPB, ONCE, Dosing Weight 193.182, kg, Start date: 12/04/12 11:27:00, Stop date: 12/04/12 11:27:00 [facility] Lactated Ringers Injection IV 1000 mL 2012-12-04 16:05:00 No Denton Morinen 1,000 mL, Rate: 25 ml/hr, Infuse over: 40 hr, Route: IV, Dosing Weight 193.182 kg, Total Volume: 1,000, Start date: 12/04/12 11:05:00, Duration: 30 day, Stop date: 01/03/13 11:04:00 [facility] tamsulosin 0.4 mg oral capsule 2012-12-04 15:20:21 Yes 0.4 mg, 1 cap, PO, Daily, 30 cap, Substitution Allowed, CAP [facility] Zofran 4 mg oral tablet 2012-12-04 15:20:08 Yes PO, PRN, Substitution Allowed [facility] Cipro 2012-12-04 15:19:57 Yes PO, Q12H, Subs titution Allowed [facility] Aspirin Low Dose 81 mg oral tablet 2012-12-04 15:14:56 Yes PO, Daily, Substitution Allowed [facility] meloxicam 15 mg oral tablet 2012-12-04 15:14:50 Yes 15 mg, 1 tab, PO, Daily, 30 tab, Substitution Allowed, TAB [facility] hydrochlorothiazide-triamterene 25 mg-37.5 mg oral capsule 2012-12-04 15:14:41 Yes 1 cap, PO, Daily, 30 cap , Substitution Allowed, Maintenance, CAP [facility] amLODipine 5 mg oral tablet 2012-12-04 15:14:13 Yes 5 mg, 1 tab, PO, Daily, 30 tab, Substitution Allowed, TAB [facility] Bystolic 10 mg oral tablet 2012-12-04 15:13:57 Yes 10 mg, 1 tab, PO, Daily, 30 tab, Substitution Allowed, TAB [facility] atorvastatin 20 mg oral tablet 2012-12-04 15:13:45 Yes 20 mg, 1 tab, PO, Daily, 30 tab, Substitution Allowed, TAB [facility] Diovan 320 mg oral tablet 2012-12-04 15:13:33 Yes 320 mg, 1 tab, PO, Daily, 90 tab, Substitution Allowed, TAB [facility] lansoprazole 30 mg oral delayed release capsule 2012-12-04 15:13 :17 Yes 30 mg, 1 cap, PO, Daily, 30 cap, Substitution Allowed [facility] Acetaminophen With Codeine (Tylenol With Codeine #3 Ta blet) 1 Each Tablet Acetaminophen With Codeine (Tylenol With Codeine #3 Tablet) 1 Each Tablet Yes 300 as needed for Mild Pain (1-3) Or Fever>1 00.8 [facility] Amlodipine/Valsartan Amlodipine/Valsartan Yes Daily [facility] Atorvastatin Calcium (Lipitor) 20 Mg Tablet Atorvastat in Calcium (Lipitor) 20 Mg Tablet Yes 20 Daily [facility] Farxiga Mg Farxiga Mg Yes 10 Daily I [facility] Gluc 2KCL/Chondr/Darrel Hy/Hy Ac (Glucosamine & Chondroi tin Cap) 1 Each Capsule Gluc 2KCL/Chondr/Darrel Hy/Hy Ac (Glucosamine & Chondroitin Cap) 1 Each Capsule Yes [facility] Meclizine Hcl 25 Mg Tablet Meclizine Hcl 25 Mg Tablet Yes 25 As Needed [facility] Meloxicam 15 Mg Tablet Meloxicam 15 Mg Tablet Yes 15 Daily [facility] Metformin Hcl (Metformin Hcl Er) 500 Mg Tab.er.24 Metf ormin Hcl (Metformin Hcl Er) 500 Mg Tab.er.24 Yes 1 Bedtime [facility] Nebivolol Hcl (Bystolic) 10 Mg Tablet Nebivolol Hcl (Bystolic) 10 M g Tablet Yes 20 Daily [facility] Pantoprazole Sodium (Protonix) 40 Mg Tablet.dr Art azole Sodium (Protonix) 40 Mg Tablet. Yes [address] [facility] Triamterene/Hydrochlorothiazid (Triamterene-Hctz 37.5- 25 Mg Cp) 1 Each Capsule Triamterene/Hydrochlorothiazid (Triamterene-Hctz 37.5-25 Mg Cp) 1 Each Capsule Yes 37.5 Daily [facility] Vitamin B Complex & Vit C No.4 (Super B Complex) 150 M g Tablet Vitamin B Complex & Vit C No.4 (Super B Complex) 150 Mg Tablet Yes [facility] Levofloxacin (Levaquin) 500 Mg Tablet, 500 Mg Oral Lev ofloxacin (Levaquin) 500 Mg Tablet, 500 Mg Oral 2019-03-17 00:00:00 No 500 D aily [facility] Amlodipine Besylate 5 Mg Tablet, 1 Tab Oral Amlodipine Besylate 5 Mg Tablet, 1 Tab Oral 2019-02-16 00:00:00 No 1 Daily [facility] Amlodipine-Valsartan 5/,320 , Mg Oral Amlodipine-Valsartan 5/,3 20 , Mg Oral 2019-02-16 00:00:00 No Daily [facility] Levofloxacin (Levaquin) 500 Mg Tablet, 500 Mg Oral Lev ofloxacin (Levaquin) 500 Mg Tablet, 500 Mg Oral 2018-09-17 00:00:00 No 500 D [facility] Meclizine Hcl 25 Mg Tab.chew, 25 Mg Oral Meclizine Hcl 25 Mg Tab.chew, 25 Mg Oral 2018-09-17 00:00:00 No 25 As Needed [facility] Cephalexin 500 Mg Capsule, 500 Mg Oral Cephalexin 500 Mg Capsule , 500 Mg Oral 2018-09-01 00:00:00 No 500 Three Times A Day [facility] Insulin Detemir (Levemir) 100 Unit/1 Ml Vial, 5 Units Sub-Q Insulin Detemir (Levemir) 100 Unit/1 Ml Vial, 5 Units Sub-Q 2018-09-01 00:00:00 No 5 Bedtime [facility] Amlodipine/Valsartan (Exforge 5-320 Mg Tablet) 1 Each Tablet, Amlodipine/Valsartan (Exforge 5-320 Mg Tablet) 1 Each Tablet, 2018-08-13 00:00:00 No [facility] Aspirin 81 Mg Tablet, 81 Mg Oral Aspirin 81 Mg Tablet, 81 Mg Ora l 2018-08-13 00:00:00 No 81 Daily [facility] Farxiga , Unknown Dose Farxiga , Unknown Dose 2018-08-13 00:00:00 No [facility] Meclizine Hcl 12.5 Mg Tablet, 25 Mg Oral Meclizine Hcl 12.5 Mg Tablet, 25 Mg Oral 2018-08-13 00:00:00 No 25 Thre e Times A Day as needed for Dizziness [facility] Metformin Hcl 500 Mg Tablet, 500 Mg Oral Metformin Hcl 500 Mg Tablet, 500 Mg Oral 2018-08-13 00:00:00 No 500 Bedtime [facility] Pantoprazole Sodium (Protonix) 40 Mg Tablet.dr, 40 Mg Oral Pantoprazole Sodium (Protonix) 40 Mg Tablet.dr, 40 Mg Oral 2018-08-13 00:00:[address] [facility] Triamterene/Hydrochlorothiazid (Triamter carmelita-Hctz 37.5-25 Mg Cp) 1 Each Capsule, 1 Cap Oral Triamterene/Hydrochlorothiazid (Triamter carmelita-Hctz 37.5-25 Mg Cp) 1 Each Capsule, 1 Cap Oral 2018-08-13 00:00:00 No 1 Daily [facility] Amlodipine Besylate 5 Mg Tablet, 5 Mg Oral Amlodipine Besylate 5 Mg Tablet, 5 Mg Oral 2017-09-01 00:00:00 No 5 Daily [facility] Dapagliflozin , 10 Mg Oral Dapagliflozin , 10 Mg Oral 2017 00:00:00 No 10 Daily [facility] Levofloxacin (Levaquin) 500 Mg Tablet, 500 Mg Oral Lev ofloxacin (Levaquin) 500 Mg Tablet, 500 Mg Oral 2017-09-01 00:00:00 No 500 D aily [facility] Invokana , 300 Mg Oral Invokana , 300 Mg Oral 2017-07-08 00:00:0 0 No 300 Daily [facility] Lansoprazole 30 Mg Capsule., 30 Mg Oral Lansoprazole 30 Mg Capsule.dr, 30 Mg Oral 2017-07-08 00:00:00 No 30 Daily [facility] Valsartan (Diovan) 80 Mg Tab, 320 Mg Oral Valsartan (D iovan) 80 Mg Tab, 320 Mg Oral 2017-07-08 00:00:00 No 320 Daily [facility] Furosemide (Lasix) 40 Mg Tablet, 40 Mg Oral Furosemide (Lasix) 40 Mg Tablet, 40 Mg Oral 2015-07-06 00:00:00 No 40 Daily as needed [facility] Vital Signs Vital Name Observation Time Observation Value Comments Source Systolic blood pressure 2018-10-14 15:50:00 132 mm[Hg] [facility] Diastolic blood pressure 2018-10-14 15:50:00 64 mm[Hg] [facility] Heart rate 2018-10-14 15:50:00 85 /min [facility] Respiratory rate 2018-10-14 15:50:00 16 /min [facility] Oxygen saturation in Arterial blood by Pulse oximetry 10-14 15:50:00 93 [facility] 2018-10-14 14:56:00 36.72 [facility] Body height 2018-10-14 11:10:00 177.8 cm [facility] 2018-10-14 11:10:00 165.194 kg [place] [facility] BMI 2018-10-14 11:10:00 52.26 kg/m2 [facility] Systolic (mm Hg) 2018-03-19 16:30:00 [facility] Diastolic (mm Hg) 2018-03-19 16:30:00 [facility] Systolic (mm Hg) 2018-03-19 15:45:00 S [facility] Diastolic (mm Hg) 2018-03-19 15:45:00 [facility] Systolic (mm Hg) 2018-03-19 15:30:00 [facility] Diastolic (mm Hg) 2018-03-19 15:30:00 [facility] Respitory Rate 2018-03-19 15:30:00 [facility] Respitory Rate 2018-03-19 15:15:00 [facility] Respitory Rate 2018-03-19 15:00:00 [facility] Heart Rate 2018-03-19 14:51:00 [facility] Heart Rate 2018-03-19 12:57:00 [facility] Temperature Oral (F) 2018-03-13 22:00:00 97.9 F [facility] Heart Rate 2018-03-13 22:00:00 [facility] Height 2018-03-13 21:50:00 182.88 cm [facility] Weight 2018-03-13 21:50:00 [facility] BMI Calculated 2018-03-13 21:50:00 [facility] Systolic (mm Hg) 2012-12-11 19:38:00 [facility] Diastolic (mm Hg) 2012-12-11 19:38:00 [facility] Diastolic (mm Hg) 2012-12-11 19:15:00 [facility] Systolic (mm Hg) 2012-12-11 19:15:00 [facility] Respitory Rate 2012-12-11 19:15:00 [facility] Systolic (mm Hg) 2012-12-11 19:00:00 [facility] Diastolic (mm Hg) 2012-12-11 19:00:00 [facility] Respitory Rate 2012-12-11 19:00:00 [facility] Respitory Rate 2012-12-11 18:45:00 [facility] Heart Rate 2012-12-11 15:30:00 [facility] Temperature Oral (F) 2012-12-09 18:48:00 98.3 F [facility] Heart Rate 2012-12-09 18:48:00 [facility] Height 2012-12-09 18:31:00 177.8 cm [facility] Weight 2012-12-09 18:31:00 [facility] Diastolic (mm Hg) 2012-12-04 19:00:00 [facility] Systolic (mm Hg) 2012-12-04 19:00:00 [facility] Respitory Rate 2012-12-04 18:45:00 MH [facility] Systolic (mm Hg) 2012-12-04 18:45:00 [facility] Diastolic (mm Hg) 2012-12-04 18:45:00 [facility] Systolic (mm Hg) 2012-12-04 18:30:00 [facility] Diastolic (mm Hg) 2012-12-04 18:30:00 [facility] Respitory Rate 2012-12-04 18:30:00 MH [facility] Respitory Rate 2012-12-04 18:15:00 [facility]ast Heart Rate 2012-12-04 14:51:00 [facility] Temperature Oral (F) 2012-12-04 14:51:00 98.3 F [facility] Weight 2012-12-04 14:48:00 [facility] Height 2012-12-04 14:48:00 177.8 cm [facility] Procedures Procedure Date / Time Performed Performing Clinician [facility] e CT of abdomen and pelvis without contrast 2019-04-01 00:00:00 VA LDEZ NBA L [facility] CYSTOURETERO W/LITHOTRIPSY 2019-03-19 00:00:00 LOUIS COX [facility] DILATION OF RIGHT URETER WITH INTRALUMINAL DEVICE, ENDO 2018 00:00:00 LOUIS COX [facility] DILATION OF LEFT URETER, ENDO 2019-02-17 00:00:00 ADDISON COX [facility] FLUOROSCOPY OF KIDNEY, URETER & BLADDER USING L OSM CO NTRAST 2019-02-17 00:00:[address] [facility] ica Center CT of abdomen and pelvis without contrast 2019-02-16 00:00:00 DOMENIC CURRY [facility] POC GLUCOSE 2018-10-14 14:40:00 Louis Cox [place] AN ELECTIVE ENDOTRACHEAL AIRWAY 2018-10-14 13:42:13 Mala Arroyo EXTRACORPOREAL SHOCKWAVE LITHOTRIPSY (ESWL) 2018-10-14 13:02 :00 Louis Cox POC GLUCOSE 2018-10-14 11:32:00 Louis Cox CBC HEMOGRAM 2018-10-09 15:49:00 Louis Cox BASIC METABOLIC PANEL 2018-10-09 15:49:00 Louis Cox ESTIMATED GFR 2018-10-09 15:49:00 Louis Cox ECG 12-LEAD 2018-10-09 15:48:58 Louis Cox ethodist REMOVE RENAL TUBE W/FLUORO 2018-09-18 00:00:00 LOUIS COX [facility] CYSTOURETERO & OR PYELOSCOPE 2018-09-18 00:00:00 LOUIS COX [facility] X-ray of chest, two views 2018-09-03 00:00:00 LIVAN CASTANEDA [facility] CONVERT NEPHROSTOMY CATHETER 2018-09-01 00:00:00 LIV JOHNSTON [facility] FRAGMENTING OF KIDNEY STONE 2018-08-18 00:00:00 LOUIS COX [facility] Injection procedure for shoulder arthrog bakari or enhanced CT/MRI shoulder arthrography 2018-02-12 16:39:22 FIONA Ritter Cystourethroscopy, with insertion of ind welling ureteral stent (eg, De Leon or double-J type) 2012-12-11 05:00:00 [facility] Cystourethroscopy, with ureteroscopy and /or pyeloscopy; with removal or manipulation of calculus (ureteral catheterization is included) 2012-12-11 05:00:00 [facility] Transurethral Removal of Obstruction from Ureter and R enal Pelvis 2012-12-11 05:00:00 [facility] Ureteral Catheterization 2012-12-11 05:00:00 [facility] Shoulder joint operations<sup>1</sup> 2010-03-10 00:00:00 FIONA Ritter, [facility], 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 [place] Arthroplasty of knee FIONA arora, [facility], [facility] [place] Cardiac catheterization FIONA Ritter, OPILexi Christy, [facility], [facility] [place] Cholecystectomy FIONA Ritter, OPILexi Christy, [facility], [facility] [place] 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<sup>2</sup> FIONA Ritter, [facility], [facility] [place] Lithotripsy FIONA Ritter, FIONA Christy, [facility], [facility] [place] Stent placement FIONA Ritter, FIONA Christy, [facility], [facility] [place] Plan of Care Planned Activity Planned Date Details Comments Source Future Scheduled Test 2019-10-09 00:00:00 INFLUENZA VACCINE [code = INFLUENZA VACCINE] [facility] Future Scheduled Test 2013 00:00:00 COLONOSCOPY SCREEN ING [code = COLONOSCOPY SCREENING] [facility] Scheduled Test 2013 00:00:00 SHINGLES VACCINES (#1) [code = SHINGLES VACCINES (#1)] [facility] Future Scheduled Test 1973 00:00:00 DIABETIC FOOT EXAM [code = DIABETIC FOOT EXAM] [facility] Future Scheduled Test 1973 00:00:00 URINE MICROALBUMIN [code = URINE MICROALBUMIN] [facility] Scheduled Test 1963 00:00:00 DIABETIC RETINAL E YE EXAM [code = DIABETIC RETINAL EYE EXAM] [facility] Encounters Start Date/Time End Date/Time Encounter Type Admission Type [facility] Care Department Encounter ID Source 2019-04-01 10:21:00 2019-04-01 14:29:00 Departed Emergency Room [address] [facility] [id number] [facility] 2019-03-20 19:13:00 2019-03-20 22:51:00 Departed Emergency Room [address] [facility] [id number] [facility] 2019-03-19 05:16:00 2019-03-19 05:16:00 Registered Surgical Day Care [facility] [id number] [facility] 2019-02-16 14:33:00 2019-02-18 12:05:00 Discharged Inpatient [address] [facility] [id number] [facility] 2019-02-15 10:11:00 2019-02-15 10:11:00 Registered Clinic [address] [facility] [id number] [facility] 2018-11-27 10:33:00 2018-11-27 10:33:00 Registered Clinic [address] [facility] [id number] [facility] 2018-09-18 08:22:00 2018-09-18 08:22:00 Registered Surgical Day Care [facility] [id number] [facility] 2018-09-01 22:28:00 2018-09-03 13:50:00 Discharged Inpatient [address] [facility] [id number] [facility] 2018-09-01 07:43:00 2018-09-01 07:43:00 Registered Surgical Day Car e 3 [facility] [id number] [facility] 2018-08-18 05:00:00 2018-08-18 05:00:00 Registered Surgical Day Car e 3 [facility] [id number] [facility] 2018-07-24 00:25:00 2018-07-24 00:50:[address] [facility] [id number] [facility] 2018-05-07 14:00:00 2018-06-06 04:59:00 OP Therapy Patients MHIEALT [facility] [id number] [facility] [place] 2018-05-07 08:00:00 2018-06-05 23:59:00 Outpatient Oliverio Wyatt [id number] 2018-04-07 21:40:00 2018-05-07 05:59:00 OP Therapy Patients MHIEALT [facility] [place] [id number] [facility] [place] 2018-04-07 15:40:00 2018-05-06 23:59:00 Outpatient Oliverio Wyatt [id number] 2018-03-19 12:00:00 2018-03-19 16:46:00 Day Surgery MHIEALT [facility] [id number] [facility] 2018-03-19 06:00:00 2018-03-19 10:46:00 Outpatient Oswald Wyatt MHSE MHSE [id number] 2018-02-12 15:10:00 2018-02-13 05:59:00 Outpt Diag Services MHIEALT [facility] Outpatient Imaging [facility] [id number] MH [facility] [place] 2018-02-12 09:10:00 2018-02-12 23:59:00 Outpatient Adrián Wyatt MHOIH MHOIH [id number] 2018-01-06 05:04:00 2018-01-06 05:04:00 Registered Surgical Day Car LOUIS Jane [facility] [id number] [facility] 2017-07-09 12:16:00 2017-07-10 12:02:00 Discharged Inpatient ER GISELA CARABALLO [facility] [id number] [facility] 2015-06-16 17:20:00 2015-06-17 04:59:00 Outpt Diag Services MHIEALT [facility] Outpatient Imaging - [place] [id number] [facility] [place] 2015-06-16 12:20:00 2015-06-16 23:59:00 Outpatient Bjorn Guerrero MHHOIP MHHOIP [id number] 2012-12-11 09:30:00 2012-12-11 15:10:00 DS MHIEALT [facility] [id number] [facility] 2012-12-04 09:23:00 2012-12-04 14:20:00 DS MHIEALT [facility] [id number] [facility] Results Test Description Test Time Test Comments Results Result Comments Source ABDOMEN-1VIEW (KUB) 2019-08-05 15:22:00 [place] [address] Patient Name: ZAYNAB FLORES MR #: [id number] : 1965 Age/Sex: 54/M Req #: [id number] Adm Physician: Ordered by: LOUIS COX MD Report #: [id number] Location: [facility] Room/Bed: Procedure: [id number] DX/ABDOMEN-1VIEW (KUB) Exam Date: 08/05/19 Exam Time: 1457 REPORT STATUS: Signed Exam: KUB - 2 views Indication: Renal calculus Comparison: KUB of 03/20/2019 Findings: Previously seen right and left renal calculi on CT of 04/01/2019 are not well visualized on this radiograph, possibly due to overlying bowel contents. Nonobstructive bowel gas pattern. No free air. Status post cholecystectomy. Surgical clips in the right pelvis. No acute osseous injury. Impression: Previously seen right and left renal calculi from CT of 04/01/2019 are not well visualized on this radiograph, possibly due to overlying bowel contents. Signed by: Melissa Quan MD on 08/05/2019 3:24 PM Dictated By: MELISSA QUAN MD [id number] Transcribed By: MICHEAL on 08/05/19 1524 COPY TO: LOUIS COX MD Sodium Level 2019-04-01 12:59:00 Test Item Sodium Level (test code = 2951-2) 137 136-145 [facility] [id number] 12:59:00* Test Item Value Reference Range Interpretation Comments Potassium Level (test code = 2823-3) 3.6 3.5-5.1 [facility] [id number] 12:59:00* Test Item Value Reference Range Interpretation Comments Chloride Level (test code = 2075-0) 101 98-107 [facility] Dioxide [id number] 12:59:00* Test Item Value Reference Range Interpretation Comments Carbon Dioxide Level (test code = 2028-9) 21 22-29 L [facility]ion [id number] 12:59:00* Test Item Value Reference Range Interpretation Comments Anion Gap (test code = 95216-8) 18.6 8-16 H [facility] Urea [id number] 12:59:00* Test Item Value Reference Range Interpretation Comments Blood Urea Nitrogen (test code = 3094-0) 26 7-26 [facility]inine2020-01-23 12:59:00* Test Item Value Reference Range Interpretation Comments Creatinine (test code = 2160-0) 1.60 0.72-1.25 H [facility]Creatinine [id number] 12:59:00* Test Item Value Reference Range Interpretation Comments BUN/Creatinine Ratio (test code = 3097-3) 16 6-25 [facility] Glomerular Filtration Rate 2019-04-01 12:59:00* Test Item Value Reference Range Interpretation Comments Estimat Glomerular Filtration Rate (test code = 819977647) 45 >60 L Ranges were taken from the [employer] Disease Education Program and the [facility] literature.Reference ranges:60 or greater: Xnjbdi58-61 ( for 3 consecutive months): Chronic kidney disease 15 or less: Kidney failureVal [facility]de [facility] Medical CenterGlucose Prage3437-08-82 12:59:00* Test Item Value Reference Range Interpretation Comments Glucose Level (test code = MRU5566) 152 74-118 H [facility] CenterCalcium Qvhsi8952-90-17 12:59:00* Test Item Value Reference Range Interpretation Comments Calcium Level (test code = 77634-8) 10.3 8.4-10.2 H [facility] CenterTotal Krsavdatv2309-45-38 12:59:00* Test Item Value Reference Range Interpretation Comments Total Bilirubin (test code = 1975-2) 1.1 0.2-1.2 [facility] CenterAspartate Amino Transf (AST/SGOT) 2019-04-01 12:59:00* Test Item Value Reference Range Interpretation Comments Aspartate Amino Transf (AST/SGOT) (test code = Aspartate Amino Transf (AST/SGOT)) 26 5-34 [facility] CenterAlanine Aminotransferase (ALT/SGPT) 2019-04-01 12:59:00* Test Item Value Reference Range Interpretation Comments Alanine Aminotransferase (ALT/SGPT) (test code = 1742-6) 31 0-55 [facility] CenterTotal Hdrpbwj9717-75-70 12:59:00* Test Item Value Reference Range Interpretation Comments Total Protein (test code = 2885-2) 8.1 6.5-8.1 [facility] CenterAlbumin2020-01-23 12:59:00* Test Item Value Reference Range Interpretation Comments Albumin (test code = 1751-7) 4.5 3.5-5.0 [facility] CenterGlobulin2020-01-23 12:59:00* Test Item Value Reference Range Interpretation Comments Globulin (test code = 91573-8) 3.6 2.3-3.5 H [facility] CenterAlbumin/Globulin Llqvb8612-93-95 12:59:00 * Test Item Value Reference Range Interpretation Comments Albumin/Globulin Ratio (test code = 1759-0) 1.3 0.8-2.0 [facility] CenterAlkaline Bacfsfvrvfx6247-45-59 12:59:00* Test Item Value Reference Range Interpretation Comments Alkaline Phosphatase (test code = 6768-6) 92 40-150 [facility] CenterWhite Blood Udkcu0310-87-79 12:49:00* Test Item Value Reference Range Interpretation Comments White Blood Count (test code = 6690-2) 12.29 4.8-10.8 H [facility] CenterRed Blood Njywu5442-52-91 12:49:00* Test Item Value Reference Range Interpretation Comments Red Blood Count (test code = 789-8) 5.23 4.3-5.7 [facility] CenterHemoglobin2020-01-23 12:49:00* Test Item Value Reference Range Interpretation Comments Hemoglobin (test code = 81433-4) 14.1 14.0-18.0 [facility] CenterHematocrit2020-01-23 12:49:00* Test Item Value Reference Range Interpretation Comments Hematocrit (test code = 4544-3) 43.4 38.2-49.6 [facility] CenterMean Corpuscular Rijodz9960-93-21 12:49:00* Test Item Value Reference Range Interpretation Comments Mean Corpuscular Volume (test code = 787-2) 83.0 81-99 [facility] CenterMean Corpuscular Rbdrwgexlx8551-18-94 12:49:00* Test Item Value Reference Range Interpretation Comments Mean Corpuscular Hemoglobin (test code = 785-6) 27.0 28-32 L [facility] CenterMean Corpuscular Hemoglobin Concent 2019-04-01 12:49:00* Test Item Value Reference Range Interpretation Comments Mean Corpuscular Hemoglobin Concent (test code = 786-4) 32.5 31-35 [facility] CenterRed Cell Distribution Tglcx4890-16-28 12:49:00* Test Item Value Reference Range Interpretation Comments Red Cell Distribution Width (test code = 39089-7) 15.4 11.7 -14.4 H [facility] CenterPlatelet Wfclg4479-31-99 12:49:00* Test Item Value Reference Range Interpretation Comments Platelet Count (test code = 777-3) 279 140-360 [facility] CenterNeutrophils (%) (Auto)2019-04-01 12:49:00 * Test Item Value Reference Range Interpretation Comments Neutrophils (%) (Auto) (test code = 46761-1) 68.1 38.7-80.0 [facility] CenterLymphocytes (%) (Auto)2019-04-01 12:49:00 * Test Item Value Reference Range Interpretation Comments Lymphocytes (%) (Auto) (test code = 736-9) 22.0 18.0-39.1 [facility] CenterMonocytes (%) (Auto)2019-04-01 12:49:00* Test Item Value Reference Range Interpretation Comments Monocytes (%) (Auto) (test code = 5905-5) 7.2 4.4-11.3 [facility] CenterEosinophils (%) (Auto)2019-04-01 12:49:00 * Test Item Value Reference Range Interpretation Comments Eosinophils (%) (Auto) (test code = 713-8) 1.8 0.0-6.0 [facility] CenterBasophils (%) (Auto)2019-04-01 12:49:00* Test Item Value Reference Range Interpretation Comments Basophils (%) (Auto) (test code = 706-2) 0.4 0.0-1.0 [facility] CenterIM GRANULOCYTES %2019-04-01 12:49:00* Test Item Value Reference Range Interpretation Comments IM GRANULOCYTES % (test code = IM GRANULOCYTES %) 0.5 0.0- 1.0 [facility] CenterNeutrophils # (Auto)2019-04-01 12:49:00* Test Item Value Reference Range Interpretation Comments Neutrophils # (Auto) (test code = 751-8) 8.4 2.1-6.9 H [facility] CenterLymphocytes # (Auto)2019-04-01 12:49:00* Test Item Value Reference Range Interpretation Comments Lymphocytes # (Auto) (test code = 13679-6) 2.7 1.0-3.2 [facility] CenterMonocytes # (Auto)2019-04-01 12:49:00* Test Item Value Reference Range Interpretation Comments Monocytes # (Auto) (test code = 742-7) 0.9 0.2-0.8 H [facility] CenterEosinophils # (Auto)2019-04-01 12:49:00* Test Item Value Reference Range Interpretation Comments Eosinophils # (Auto) (test code = 711-2) 0.2 0.0-0.4 [facility] CenterBasophils # (Auto)2019-04-01 12:49:00* Test Item Value Reference Range Interpretation Comments Basophils # (Auto) (test code = 704-7) 0.1 0.0-0.1 [facility] CenterAbsolute Immature Granulocyte (auto 2019-04-01 12:49:00* Test Item Value Reference Range Interpretation Comments Absolute Immature Granulocyte (auto (chel t code = Absolute Immature Granulocyte (auto) 0.06 0-0.1 [facility] CenterUrine VSM1835-53-34 12:03:00* Test Item Value Reference Range Interpretation Comments Urine WBC (test code = 5821-4) 21-50 0-5 H [facility] CenterUrine SKY8712-39-39 12:03:00* Test Item Value Reference Range Interpretation Comments Urine RBC (test code = 89848-7) 11-20 0-5 H [facility] CenterUrine Nqsxiuoh8820-93-44 12:03:00* Test Item Value Reference Range Interpretation Comments Urine Bacteria (test code = 28393-8) MANY NONE H [facility] CenterUrine Epithelial Wchgi8743-15-42 12:03:00 * Test Item Value Reference Range Interpretation Comments Urine Epithelial Cells (test code = 86472-6) MODERATE NONE [facility] CenterUrine Slsjl2431-67-85 12:03:00* Test Item Value Reference Range Interpretation Comments Urine Yeast (test code = 16516-7) MANY NONE H [facility] CenterCT ABDOMEN/PELVIS SR7220-28-80 11:48:00 [facility] [address] [address] Patient Name: ZAYNAB FLORES MR #: [id number] : 1965 Age/Sex: 54/M Req #: [id number] Adm Physician: Ordered by: NBA THAKKAR [employer]AT[employer] CONSULTANT Report #: [id number] Location: ER Room/Bed: Procedure: 0[address]/CT ABDOMEN/PELVIS WO Exam Date: 04/01/19 Exam Time: 1050 REPORT STATUS: Signed CT of the abdomen and pelvis, without contrast, 04/01/2019. History: Left abdominal pain. Comparison: None available. Technique: Multidetector CT scanning of the abdomen and pelvis was performed from the l evel of the lung bases to the inferior pubic rami without intravenous or oral contrast. Coronal and sagittal multiplanar reformations were obtained. RAD IATION DOSE: Total DLP: 1328 mGy*cm Dose modulation, iterative rec onstruction, and/or weight based adjustment of the mA/kV was utilized to reduc e the radiation dose to as low as reasonably achievable. Discussion: Exa mination is limited without contrast. Lung bases: A calcified granuloma is pre sent on the right. Abdomen: There is mild left hydronephrosis and perinephr ic fat stranding with dilatation of the proximal left ureter down to the level of L4-L5 where a 6 cm stone is identified. Multiple additional subcentimeter stones are present within both kidneys, the largest in the left lower pole eda suring 8 mm. There is no hydronephrosis on the right. Calcified granuloma ta are present within the liver and spleen. The liver is mildly enlarged. Chol ecystectomy clips are present. The biliary tree, pancreas, and adrenal glands are unremarkable. The abdominal aorta is within normal limits. There is no raine wel dilatation. The appendix is visualized and is normal. There is no evidence of adenopathy or free fluid. Pelvis: The bladder, prostate, and seminal vesicles are unremarkable. Small bilateral fat-containing inguinal hernias are present. There is no evidence of free fluid or adenopathy. Bones and so ft tissues: Advanced degenerative changes are present throughout the lumbar sp ine without evidence of lytic or sclerotic lesion. IMPRESSION: 1. 6 mm mid left ureteral stone causing mild left hydronephrosis. Multiple additio nal subcentimeter stones are present within both kidneys. 2. Hepatomegaly. 3. 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 4. Statu s post cholecystectomy. Signed by: Navarro Rodney on 04/01/2019 11:56 A M Dictated By: NAVARRO RODNEY MD 115 Transcribed By: MICHEAL on 04/01/19 1156 COPY TO: NBA CHICAS NP Urine Puwvc7959-02-61 11:33:00* Test Item Value Reference Range Interpretation Comments Urine Color (test code = 5778-6) YELLOW YELLOW [facility] CenterUrine Rgsmshb1781-48-43 11:33:00* Test Item Value Reference Range Interpretation Comments Urine Clarity (test code = 99108-3) CLOUDY CLEAR H [facility] CenterUrine Specific Dochtoj0126-62-70 11:33:00 * Test Item Value Reference Range Interpretation Comments Urine Specific [place] (test code = 5811-5) 1.015 1.010-1.02 5 [facility] CenterUrine eI7259-57-44 11:33:00* Test Item Value Reference Range Interpretation Comments Urine pH (test code = 29453-3) 6 5-7 [facility] CenterUrine Leukocyte Nuoiijvu3966-06-32 11:33:00* Test Item Value Reference Range Interpretation Comments Urine Leukocyte Esterase (test code = 5799-2) SMALL NEGATIVE [facility] CenterUrine Bwgtzie4199-49-47 11:33:00* Test Item Value Reference Range Interpretation Comments Urine Nitrite (test code = 16051-6) NEGATIVE NEGATIVE [facility] CenterUrine Iwbfara8344-10-86 11:33:00* Test Item Value Reference Range Interpretation Comments Urine Protein (test code = 5804-0) NEGATIVE NEGATIVE [facility] CenterUrine Glucose (UA)2019-04-01 11:33:00* Test Item Value Reference Range Interpretation Comments Urine Glucose (UA) (test code = 2349-9) 3+ NEGATIVE [facility] CenterUrine Ojafkwo1887-20-54 11:33:00* Test Item Value Reference Range Interpretation Comments Urine Ketones (test code = 08039-0) NEGATIVE NEGATIVE [facility] CenterUrine Sqjslyawzluj1964-26-11 11:33:00* Test Item Value Reference Range Interpretation Comments Urine Urobilinogen (test code = 41076-1) 0.2 0.2-1 [facility] CenterUrine Epqtuschl0810-95-31 11:33:00* Test Item Value Reference Range Interpretation Comments Urine Bilirubin (test code = 1978-6) NEGATIVE NEGATIVE [facility] CenterUrine Pybsm1329-08-80 11:33:00* Test Item Value Reference Range Interpretation Comments Urine Blood (test code = 99083-7) 1+ NEGATIVE [facility] Wkpbp1844-18-61 21:45:00* Test Item Value Reference Range Interpretation Comments Sodium Level (test code = 2951-2) 139 136-145 [facility] CenterPotassium Uwubs4710-84-31 21:45:00* Test Item Value Reference Range Interpretation Comments Potassium Level (test code = 2823-3) 3.6 3.5-5.1 [facility] CenterChloride Wlewe3360-11-38 21:45:00* Test Item Value Reference Range Interpretation Comments Chloride Level (test code = 2075-0) 104 98-107 [facility] CenterCarbon Dioxide Xecua7035-79-32 21:45:00* Test Item Value Reference Range Interpretation Comments Carbon Dioxide Level (test code = 2028-9) 23 22-29 [facility] CenterAnion Pek7278-60-41 21:45:00* Test Item Value Reference Range Interpretation Comments Anion Gap (test code = 99325-5) 15.6 8-16 [facility] CenterBlood Urea Fngohrum8180-11-97 21:45:00* Test Item Value Reference Range Interpretation Comments Blood Urea Nitrogen (test code = 3094-0) 20 7-26 [facility] CenterCreatinine2020-01-11 21:45:00* Test Item Value Reference Range Interpretation Comments Creatinine (test code = 2160-0) 1.62 0.72-1.25 H [facility] CenterBUN/Creatinine Ovkud9214-77-20 21:45:00* Test Item Value Reference Range Interpretation Comments BUN/Creatinine Ratio (test code = 3097-3) 12 6-25 [facility] CenterEstimat Glomerular Filtration Rate 2019-03-20 21:45:00* Test Item Value Reference Range Interpretation Comments Estimat Glomerular Filtration Rate (test code = 582566686) 44 >60 L Ranges were taken from the National Kidney Disease Education Program and the [facility] literature.Reference ranges:60 or greater: Mdtqxo72-23 ( for 3 consecutive months): Chronic kidney disease 15 or less: Kidney failureVal Verde Regional Medical CenterGlucose Zxbxl2455-12-53 21:45:00* Test Item Value Reference Range Interpretation Comments Glucose Level (test code = NUU3724) 163 74-118 H [facility] CenterCalcium Xjjtq7250-04-37 21:45:00* Test Item Value Reference Range Interpretation Comments Calcium Level (test code = 15427-9) 9.2 8.4-10.2 [facility] CenterTotal Sgmypotxn4412-28-76 21:45:00* Test Item Value Reference Range Interpretation Comments Total Bilirubin (test code = 1975-2) 0.7 0.2-1.2 [facility] CenterAspartate Amino Transf (AST/SGOT) 2019-03-20 21:45:00* Test Item Value Reference Range Interpretation Comments Aspartate Amino Transf (AST/SGOT) (test code = Aspartate Amino Transf (AST/SGOT)) 36 5-34 H [facility] CenterAlanine Aminotransferase (ALT/SGPT) 2019-03-20 21:45:00* Test Item Value Reference Range Interpretation Comments Alanine Aminotransferase (ALT/SGPT) (test code = 1742-6) 38 0-55 [facility] CenterTotal Qoedmwh0368-84-97 21:45:00* Test Item Value Reference Range Interpretation Comments Total Protein (test code = 2885-2) 7.2 6.5-8.1 [facility] CenterAlbumin2020-01-11 21:45:00* Test Item Value Reference Range Interpretation Comments Albumin (test code = 1751-7) 3.7 3.5-5.0 [facility] CenterGlobulin2020-01-11 21:45:00* Test Item Value Reference Range Interpretation Comments Globulin (test code = 35772-4) 3.5 2.3-3.5 [facility] CenterAlbumin/Globulin Llrif8113-33-01 21:45:00 * Test Item Value Reference Range Interpretation Comments Albumin/Globulin Ratio (test code = 1759-0) 1.1 0.8-2.0 [facility] CenterAlkaline Hutnxjxaijq3707-05-43 21:45:00* Test Item Value Reference Range Interpretation Comments Alkaline Phosphatase (test code = 6768-6) 81 40-150 [facility] CenterWhite Blood Gqbew5542-02-16 21:27:00* Test Item Value Reference Range Interpretation Comments White Blood Count (test code = 6690-2) 8.75 4.8-10.8 [facility] CenterRed Blood Znybf4142-39-08 21:27:00* Test Item Value Reference Range Interpretation Comments Red Blood Count (test code = 789-8) 4.65 4.3-5.7 [facility] CenterHemoglobin2020-01-11 21:27:00* Test Item Value Reference Range Interpretation Comments Hemoglobin (test code = 79607-1) 12.4 14.0-18.0 L [facility] CenterHematocrit2020-01-11 21:27:00* Test Item Value Reference Range Interpretation Comments Hematocrit (test code = 4544-3) 39.4 38.2-49.6 [facility] CenterMean Corpuscular Xtgdba4033-79-35 21:27:00* Test Item Value Reference Range Interpretation Comments Mean Corpuscular Volume (test code = 787-2) 84.7 81-99 [facility] CenterMean Corpuscular Dpqayqggar8935-38-71 21:27:00* Test Item Value Reference Range Interpretation Comments Mean Corpuscular Hemoglobin (test code = 785-6) 26.7 28-32 L [facility] CenterMean Corpuscular Hemoglobin Concent 2019-03-20 21:27:00* Test Item Value Reference Range Interpretation Comments Mean Corpuscular Hemoglobin Concent (test code = 786-4) 31.5 31-35 [facility] CenterRed Cell Distribution Vdruq4121-54-01 21:27:00* Test Item Value Reference Range Interpretation Comments Red Cell Distribution Width (test code = 60551-8) 15.8 11.7 -14.4 H [facility] CenterPlatelet Kugfw6755-21-09 21:27:00* Test Item Value Reference Range Interpretation Comments Platelet Count (test code = 777-3) 197 140-360 [facility] CenterNeutrophils (%) (Auto)2019-03-20 21:27:00 * Test Item Value Reference Range Interpretation Comments Neutrophils (%) (Auto) (test code = 07248-7) 73.0 38.7-80.0 [facility] CenterLymphocytes (%) (Auto)2019-03-20 21:27:00 * Test Item Value Reference Range Interpretation Comments Lymphocytes (%) (Auto) (test code = 736-9) 12.5 18.0-39.1 L [facility] CenterMonocytes (%) (Auto)2019-03-20 21:27:00* Test Item Value Reference Range Interpretation Comments Monocytes (%) (Auto) (test code = 5905-5) 11.8 4.4-11.3 H [facility] CenterEosinophils (%) (Auto)2019-03-20 21:27:00 * Test Item Value Reference Range Interpretation Comments Eosinophils (%) (Auto) (test code = 713-8) 1.6 0.0-6.0 [facility] CenterBasophils (%) (Auto)2019-03-20 21:27:00* Test Item Value Reference Range Interpretation Comments Basophils (%) (Auto) (test code = 706-2) 0.3 0.0-1.0 [facility] CenterIM GRANULOCYTES %2019-03-20 21:27:00* Test Item Value Reference Range Interpretation Comments IM GRANULOCYTES % (test code = IM GRANULOCYTES %) 0.8 0.0- 1.0 [facility] CenterNeutrophils # (Auto)2019-03-20 21:27:00* Test Item Value Reference Range Interpretation Comments Neutrophils # (Auto) (test code = 751-8) 6.4 2.1-6.9 [facility] CenterLymphocytes # (Auto)2019-03-20 21:27:00* Test Item Value Reference Range Interpretation Comments Lymphocytes # (Auto) (test code = 88439-5) 1.1 1.0-3.2 [facility] CenterMonocytes # (Auto)2019-03-20 21:27:00* Test Item Value Reference Range Interpretation Comments Monocytes # (Auto) (test code = 742-7) 1.0 0.2-0.8 H [facility] CenterEosinophils # (Auto)2019-03-20 21:27:00* Test Item Value Reference Range Interpretation Comments Eosinophils # (Auto) (test code = 711-2) 0.1 0.0-0.4 [facility] CenterBasophils # (Auto)2019-03-20 21:27:00* Test Item Value Reference Range Interpretation Comments Basophils # (Auto) (test code = 704-7) 0.0 0.0-0.1 [facility] CenterAbsolute Immature Granulocyte (auto 2019-03-20 21:27:00* Test Item Value Reference Range Interpretation Comments Absolute Immature Granulocyte (auto (chel t code = Absolute Immature Granulocyte (auto) 0.07 0-0.1 [facility] CenterUrine YVD9950-31-77 21:25:00* Test Item Value Reference Range Interpretation Comments Urine WBC (test code = 5821-4) 21-50 0-5 H [facility] CenterUrine YCJ7868-06-58 21:25:00* Test Item Value Reference Range Interpretation Comments Urine RBC (test code = 04148-0) 21-50 0-5 H [facility] CenterUrine Jhpvevve8881-32-44 21:25:00* Test Item Value Reference Range Interpretation Comments Urine Bacteria (test code = 56786-9) PRESENT NONE [facility] CenterUrine Epithelial Nndps5879-05-28 21:25:00 * Test Item Value Reference Range Interpretation Comments Urine Epithelial Cells (test code = 34379-0) RARE NONE [facility] CenterUrine Hnlsj8209-25-95 21:19:00* Test Item Value Reference Range Interpretation Comments Urine Color (test code = 5778-6) YELLOW YELLOW [facility] CenterUrine Aorcaho3898-75-33 21:19:00* Test Item Value Reference Range Interpretation Comments Urine Clarity (test code = 97158-0) CLOUDY CLEAR H [facility] CenterUrine Specific Dzqkwzt0981-52-27 21:19:00 * Test Item Value Reference Range Interpretation Comments Urine Specific [place] (test code = 5811-5) 1.020 1.010-1.02 5 [facility] CenterUrine aK8905-97-69 21:19:00* Test Item Value Reference Range Interpretation Comments Urine pH (test code = 99474-6) 6.5 5-7 [facility] CenterUrine Leukocyte Gustssrv5239-46-68 21:19:00* Test Item Value Reference Range Interpretation Comments Urine Leukocyte Esterase (test code = 5799-2) SMALL NEGATIVE [facility] CenterUrine Kbsalal8169-08-10 21:19:00* Test Item Value Reference Range Interpretation Comments Urine Nitrite (test code = 56354-4) NEGATIVE NEGATIVE [facility] CenterUrine Gmnboio9572-92-70 21:19:00* Test Item Value Reference Range Interpretation Comments Urine Protein (test code = 5804-0) NEGATIVE NEGATIVE [facility] CenterUrine Glucose (UA)2019-03-20 21:19:00* Test Item Value Reference Range Interpretation Comments Urine Glucose (UA) (test code = 2349-9) 3+ NEGATIVE H [facility] CenterUrine Qjvgxwh2406-34-38 21:19:00* Test Item Value Reference Range Interpretation Comments Urine Ketones (test code = 24597-1) NEGATIVE NEGATIVE [facility] CenterUrine Jfwmhlbvswmc5257-74-91 21:19:00* Test Item Value Reference Range Interpretation Comments Urine Urobilinogen (test code = 86580-2) 0.2 0.2-1 [facility] CenterUrine Dgyjseyou8940-04-79 21:19:00* Test Item Value Reference Range Interpretation Comments Urine Bilirubin (test code = 1978-6) NEGATIVE NEGATIVE [facility] CenterUrine Jijto5628-58-82 21:19:00* Test Item Value Reference Range Interpretation Comments Urine Blood (test code = 73072-7) 3+ NEGATIVE [facility] CenterABDOMEN-1VIEW (KUB)2019-03-20 21:19:00 [facility] [address] [address] Patient Name: ZAYNAB FLORES MR #: [id number] : 1965 Age/Sex: 54/M Req #: [id number] Adm Physician: Ordered by: NAVARRO CHONG DO Report #: [id number] Location: ER Room/Bed: Procedure: [id number] D X/ABDOMEN-1VIEW (KUB) Exam Date: 03/20/19 Exam Time: 2104 REPORT STATUS: Signed E xam: Abdominal film Clinical History: Fever, right flank pain, ureteral st ent removal and lithotripsy on 02/16/2019. Comparison: CT abdomen and pel vis 02/16/2019, images from retrograde pyelogram 03/19/2019 DISCUSSION: Multiple calcifications measuring up to 5 mm project over the left renal sh adow. 5 mm calcification projects over the lower pole of the right renal shado w. Right upper quadrant and pelvic surgical clips. Bowel gas pattern is nonobs tructive. Regional skeletal structures are intact with multilevel degenerative disc changes of the lumbar spine. IMPRESSION: Bilateral renal calculi as above. Nonobstructive bowel gas pattern. Signed by: Dr. Vy Colón M.D. on 03/20/2019 9:23 PM Dictated By: VY COLÓN MD 22 Transcribed By: MICHEAL on 03/20/192122 COPY TO: ARLETTENAVARRO DO Bedside Gvtkumx1488-37-93 06:07:00* Test Item Value Reference Range Interpretation Comments Bedside Glucose (test code = 04352-0) 192 70-120 H Meter ID: [id number] Verde Regional Medical CenterBedside Glucose 2019-03-19 06:07:00* Test Item Value Reference Range Interpretation Comments Bedside Glucose (test code = 18974-3) 192 70-120 H Meter ID: [id number] Verde Regional Medical CenterUrine Culture 2019-02-18 06:23:00* Test Item Value Reference Range Interpretation Comments Urine Culture (test code = 630-4) No Result Data Provided [facility] CenterUrine Isdmerk5282-35-93 06:23:00* Test Item Value Reference Range Interpretation Comments Urine Culture (test code = 630-4) No Result Data Provided [facility] CenterUrine Fpykadw5508-66-08 06:23:00* Test Item Value Reference Range Interpretation Comments Urine Culture (test code = 630-4) No Result Data Provided [facility]odium Rhume3999-45-97 06:22:00* Test Item Value Reference Range Interpretation Comments Sodium Level (test code = 2951-2) 136 136-145 [facility] CenterPotassium Enwbd9715-70-23 06:22:00* Test Item Value Reference Range Interpretation Comments Potassium Level (test code = 2823-3) 3.9 3.5-5.1 [facility] CenterChloride Xevap4175-23-06 06:22:00* Test Item Value Reference Range Interpretation Comments Chloride Level (test code = 2075-0) 104 98-107 [facility] CenterCarbon Dioxide Ktjyf2706-90-59 06:22:00* Test Item Value Reference Range Interpretation Comments Carbon Dioxide Level (test code = 2028-9) 21 22-29 L [facility] CenterAnion Pgm3267-86-53 06:22:00* Test Item Value Reference Range Interpretation Comments Anion Gap (test code = 16088-4) 14.9 8-16 [facility] CenterBlood Urea Luulkhve0529-17-11 06:22:00* Test Item Value Reference Range Interpretation Comments Blood Urea Nitrogen (test code = 3094-0) 22 7-26 [facility] CenterCreatinine2019-12-12 06:22:00* Test Item Value Reference Range Interpretation Comments Creatinine (test code = 2160-0) 1.72 0.72-1.25 H [facility] CenterBUN/Creatinine Qfjal7817-35-57 06:22:00* Test Item Value Reference Range Interpretation Comments BUN/Creatinine Ratio (test code = 3097-3) 13 6-25 [facility] CenterEstimat Glomerular Filtration Rate 2019-02-18 06:22:00* Test Item Value Reference Range Interpretation Comments Estimat Glomerular Filtration Rate (test code = 979459551) 41 >60 L Ranges were taken from the National Kidney Disease Education Program and the [facility] literature.Reference ranges:60 or greater: Rwaolp75-20 ( for 3 consecutive months): Chronic kidney disease 15 or less: Kidney failureVal [facility]de Regional Medical CenterGlucose Jloua9305-05-57 06:22:00* Test Item Value Reference Range Interpretation Comments Glucose Level (test code = HHE2569) 188 74-118 H [facility] CenterCalcium Hwpva0691-15-51 06:22:00* Test Item Value Reference Range Interpretation Comments Calcium Level (test code = 94640-2) 9.1 8.4-10.2 [facility] CenterWhite Blood Zpoum9601-92-71 05:47:00* Test Item Value Reference Range Interpretation Comments White Blood Count (test code = 6690-2) 16.24 4.8-10.8 H [facility] CenterRed Blood Wdzdf6666-54-66 05:47:00* Test Item Value Reference Range Interpretation Comments Red Blood Count (test code = 789-8) 4.45 4.3-5.7 [facility] CenterHemoglobin2019-12-12 05:47:00* Test Item Value Reference Range Interpretation Comments Hemoglobin (test code = 39032-0) 12.0 14.0-18.0 L [facility] CenterHematocrit2019-12-12 05:47:00* Test Item Value Reference Range Interpretation Comments Hematocrit (test code = 4544-3) 38.4 38.2-49.6 [facility] CenterMean Corpuscular Esjned4490-89-83 05:47:00* Test Item Value Reference Range Interpretation Comments Mean Corpuscular Volume (test code = 787-2) 86.3 81-99 [facility] CenterMean Corpuscular Uauvujeqzx4638-80-26 05:47:00* Test Item Value Reference Range Interpretation Comments Mean Corpuscular Hemoglobin (test code = 785-6) 27.0 28-32 L [facility] CenterMean Corpuscular Hemoglobin Concent 2019-02-18 05:47:00* Test Item Value Reference Range Interpretation Comments Mean Corpuscular Hemoglobin Concent (test code = 786-4) 31.3 31-35 [facility] CenterRed Cell Distribution Jliyj5191-07-05 05:47:00* Test Item Value Reference Range Interpretation Comments Red Cell Distribution Width (test code = 80197-8) 15.0 11.7 -14.4 H [facility] CenterPlatelet Rctik6466-24-26 05:47:00* Test Item Value Reference Range Interpretation Comments Platelet Count (test code = 777-3) 184 140-360 [facility] CenterNeutrophils (%) (Auto)2019-02-18 05:47:00 * Test Item Value Reference Range Interpretation Comments Neutrophils (%) (Auto) (test code = 01945-4) 84.7 38.7-80.0 H [facility] CenterLymphocytes (%) (Auto)2019-02-18 05:47:00 * Test Item Value Reference Range Interpretation Comments Lymphocytes (%) (Auto) (test code = 736-9) 5.5 18.0-39.1 L [facility] CenterMonocytes (%) (Auto)2019-02-18 05:47:00* Test Item Value Reference Range Interpretation Comments Monocytes (%) (Auto) (test code = 5905-5) 7.9 4.4-11.3 [facility] CenterEosinophils (%) (Auto)2019-02-18 05:47:00 * Test Item Value Reference Range Interpretation Comments Eosinophils (%) (Auto) (test code = 713-8) 1.2 0.0-6.0 [facility] CenterBasophils (%) (Auto)2019-02-18 05:47:00* Test Item Value Reference Range Interpretation Comments Basophils (%) (Auto) (test code = 706-2) 0.1 0.0-1.0 [facility] CenterIM GRANULOCYTES %2019-02-18 05:47:00* Test Item Value Reference Range Interpretation Comments IM GRANULOCYTES % (test code = IM GRANULOCYTES %) 0.6 0.0- 1.0 [facility] CenterNeutrophils # (Auto)2019-02-18 05:47:00* Test Item Value Reference Range Interpretation Comments Neutrophils # (Auto) (test code = 751-8) 13.7 2.1-6.9 H [facility] CenterLymphocytes # (Auto)2019-02-18 05:47:00* Test Item Value Reference Range Interpretation Comments Lymphocytes # (Auto) (test code = 20281-4) 0.9 1.0-3.2 L [facility] CenterMonocytes # (Auto)2019-02-18 05:47:00* Test Item Value Reference Range Interpretation Comments Monocytes # (Auto) (test code = 742-7) 1.3 0.2-0.8 H [facility] CenterEosinophils # (Auto)2019-02-18 05:47:00* Test Item Value Reference Range Interpretation Comments Eosinophils # (Auto) (test code = 711-2) 0.2 0.0-0.4 [facility] CenterBasophils # (Auto)2019-02-18 05:47:00* Test Item Value Reference Range Interpretation Comments Basophils # (Auto) (test code = 704-7) 0.0 0.0-0.1 [facility] CenterAbsolute Immature Granulocyte (auto 2019-02-18 05:47:00* Test Item Value Reference Range Interpretation Comments Absolute Immature Granulocyte (auto (chel t code = Absolute Immature Granulocyte (auto) 0.10 0-0.1 [facility] CenterBedside Ukgavaq6279-19-02 22:52:00* Test Item Value Reference Range Interpretation Comments Bedside Glucose (test code = 85918-3) 246 70-120 H Meter ID: [id number] Hospital AtascosaTotal Bilirubin 2019-02-17 06:35:00* Test Item Value Reference Range Interpretation Comments Total Bilirubin (test code = 1975-2) 1.5 0.2-1.2 H [facility] CenterAspartate Amino Transf (AST/SGOT) 2019-02-17 06:35:00* Test Item Value Reference Range Interpretation Comments Aspartate Amino Transf (AST/SGOT) (test code = Aspartate Amino Transf (AST/SGOT)) 18 5-34 [facility] CenterAlanine Aminotransferase (ALT/SGPT) 2019-02-17 06:35:00* Test Item Value Reference Range Interpretation Comments Alanine Aminotransferase (ALT/SGPT) (test code = 1742-6) 20 0-55 [facility] CenterTotal Preksgp2241-03-27 06:35:00* Test Item Value Reference Range Interpretation Comments Total Protein (test code = 2885-2) 6.8 6.5-8.1 [facility] CenterAlbumin2019-12-11 06:35:00* Test Item Value Reference Range Interpretation Comments Albumin (test code = 1751-7) 3.7 3.5-5.0 [facility] CenterGlobulin2019-12-11 06:35:00* Test Item Value Reference Range Interpretation Comments Globulin (test code = 11214-6) 3.1 2.3-3.5 [facility] CenterAlbumin/Globulin Ncppl3405-64-76 06:35:00 * Test Item Value Reference Range Interpretation Comments Albumin/Globulin Ratio (test code = 1759-0) 1.2 0.8-2.0 [facility] CenterAlkaline Kftkcirkpnm6530-99-12 06:35:00* Test Item Value Reference Range Interpretation Comments Alkaline Phosphatase (test code = 6768-6) 77 40-150 [facility] CenterUrine HNY2510-83-67 14:30:00* Test Item Value Reference Range Interpretation Comments Urine WBC (test code = 5821-4) 21-50 0-5 H [facility] CenterUrine TDG0240-52-08 14:30:00* Test Item Value Reference Range Interpretation Comments Urine RBC (test code = 88270-2) 11-20 0-5 H [facility] CenterUrine Uukzajxd3119-13-90 14:30:00* Test Item Value Reference Range Interpretation Comments Urine Bacteria (test code = 19643-3) RARE NONE [facility] CenterUrine Epithelial Emqcm9465-82-76 14:30:00 * Test Item Value Reference Range Interpretation Comments Urine Epithelial Cells (test code = 57874-0) NONE NONE [facility] CenterUrine Bgpdi9515-91-74 14:09:00* Test Item Value Reference Range Interpretation Comments Urine Color (test code = 5778-6) YELLOW YELLOW [facility] CenterUrine Cvbifli9719-89-20 14:09:00* Test Item Value Reference Range Interpretation Comments Urine Clarity (test code = 78440-7) SL CLOUDY CLEAR H [facility] CenterUrine Specific Myjsaqb1396-57-79 14:09:00 * Test Item Value Reference Range Interpretation Comments Urine Specific [place] (test code = 5811-5) 1.010 1.010-1.02 5 [facility] CenterUrine cD7762-98-40 14:09:00* Test Item Value Reference Range Interpretation Comments Urine pH (test code = 26023-6) 6 5-7 [facility] CenterUrine Leukocyte Dsbmhlje0681-25-67 14:09:00* Test Item Value Reference Range Interpretation Comments Urine Leukocyte Esterase (test code = 5799-2) NEGATIVE NEGATIVE [facility] CenterUrine Husqobx2460-43-10 14:09:00* Test Item Value Reference Range Interpretation Comments Urine Nitrite (test code = 87185-9) NEGATIVE NEGATIVE [facility] CenterUrine Tstobrd1723-29-94 14:09:00* Test Item Value Reference Range Interpretation Comments Urine Protein (test code = 5804-0) TRACE NEGATIVE H [facility] CenterUrine Glucose (UA)2019-02-16 14:09:00* Test Item Value Reference Range Interpretation Comments Urine Glucose (UA) (test code = 2349-9) 3+ NEGATIVE H [facility] CenterUrine Rldqjvs3685-40-69 14:09:00* Test Item Value Reference Range Interpretation Comments Urine Ketones (test code = 97116-5) NEGATIVE NEGATIVE [facility] CenterUrine Qyhmrinfwlst1405-14-45 14:09:00* Test Item Value Reference Range Interpretation Comments Urine Urobilinogen (test code = 52771-8) 0.2 0.2-1 [facility] CenterUrine Tbqshmazd6727-17-37 14:09:00* Test Item Value Reference Range Interpretation Comments Urine Bilirubin (test code = 1978-6) NEGATIVE NEGATIVE [facility] CenterUrine Qjjut9027-44-01 14:09:00* Test Item Value Reference Range Interpretation Comments Urine Blood (test code = 92841-5) MODERATE NEGATIVE [facility] CenterCT ABDOMEN/PELVIS TG6864-57-89 13:44:00 [facility] [address] [place] [address] Patient Name: ZAYNAB FLORES MR #: [id number] : 1965 Age/Sex: 54/M Req #: [id number] Adm Physician: Ordered by: ADELA BENDER, DOMENIC BENDER Report #: [id number] Location: ER Room/Bed: Procedure: 1210-[address]/CT ABDOMEN/PELVIS WO Exam Date: 02/16/19 Exam Time: 1250 REPORT STATUS: Signed TECHNIQUE: CT of the abdomen and pelvis WITHOUT intravenous contrast and wit hout oral contrast. Dose modulation, iterative reconstruction, and/or weight-b ased adjustment of the mA/kV was utilized to reduce the radiation dose to as l ow as reasonably achievable. INDICATION: STONE PROTOCOL [id number] 1250 Y. COMPARISON: CT from 07/08/2017. FINDINGS: ABSENCE OF INTRAVENOUS CONTRAST DECREASES SENSITIVITY FOR DETECTION OF FOCAL LESIONS AND VASCULAR PATHOLOGY. LOWER THORAX: A left lower lobe calcified granuloma eda sures 0.4 cm. A right middle lobe calcified granuloma measures 0.7 cm. There a re calcified lymph nodes in the right lower mediastinum and right perihilar re gion. Partially visualized coronary arterial calcifications. HEPATOBILIAR Y: Diffusely decreased attenuation of the enlarged liver. No focal hepatic les ions. Prior cholecystectomy. No biliary ductal dilatation. SPLEEN: 15 cm splen omegaly. PANCREAS: No focal masses or ductal dilatation. ADRENALS: No adr enal nodules. KIDNEYS/URETERS: No exophytic masses. A left lower pole nonobstr ucting renal stone measures 1 cm. Additional left lower pole renal stone measu res 0.7 cm. Exophytic left lower pole renal cyst measures 0.9 cm. A nonobstruc ting right lower pole renal stone measures 0.8 cm. There is mild right hydrone phrosis with prominent perinephric fat stranding. A right distal ureteral sto ne measures 1 cm. PELVIC ORGANS/BLADDER: Unremarkable. PERITONEUM/RETRO PERITONEUM: No free air or fluid. LYMPH NODES: No lymphadenopathy. VESSELS: Unremarkable. GI TRACT: No distention or wall thickening. BONES AND SO FT TISSUES: Moderate degenerative disc changes at L3-L4. Mild degenerative dis c changes throughout the rest of the visualized spine. IMPRESSION: 1. A right distal ureteral 1 cm stone results in mild hydronephrosis. There is significant right perinephric fat stranding which is likely reactive to the obstruction. 2. Diffuse fatty infiltration of the liver with hepatosplenom egaly. Signed by: Danyelle Mcdonald JR, MD on 02/16/2019 1:58 PM Dictated By: DANYELLE MCDONALD MD 7146 T ranscribed By: MICHEAL on 02/16/19 9576 COPY TO: DOMENIC CHAPMAN Magnesium Skdau2194-40-97 13:31:00* Test Item Value Reference Range Interpretation Comments Magnesium Level (test code = 27282-1) 1.8 1.3-2.1 [facility] CenterLipase2019-12-10 13:31:00* Test Item Value Reference Range Interpretation Comments Lipase (test code = 3040-3) 47 [facility] CenterMagnesium Xhnho8256-61-49 13:31:00* Test Item Value Reference Range Interpretation Comments Magnesium Level (test code = 84114-9) 1.8 1.3-2.1 [facility] CenterLipase2019-12-10 13:31:00* Test Item Value Reference Range Interpretation Comments Lipase (test code = 3040-3) 47 8-78 [facility] CenterMagnesium Yleli3033-08-80 13:31:00* Test Item Value Reference Range Interpretation Comments Magnesium Level (test code = 83096-1) 1.8 1.3-2.1 [facility] CenterLipase2019-12-10 13:31:00* Test Item Value Reference Range Interpretation Comments Lipase (test code = 3040-3) 47 878 [facility] CenterABDOMEN-1VIEW ([facility])2019-02-15 10:51:00 [facility] [address] [place] [address] Patient Name: ZAYNAB FLORES MR #: [id number] : 1965 Age/Sex: 54/M Req #: [id number] Adm Physician: Ordered by: LOUIS COX MD Report #: [id number] Location: RAD Room/Bed: Procedure: 6149-1583 DX/ABDOMEN-1VIEW (KUB) Exam Date: 02/15/19 Exam Jerry e: 1025 REPORT STATUS: Signed Ab domen, one view Clinical indication: Renal calculus Comparison: 019 Findings: Bilateral renal calculi are present. In the right kidney th ere is a 7 mm calculus overlying the midpole and a 8 mm calculus overlying the lower pole. On the left there are 2 calculi measuring 8 mm and 6 mm overlying the lower pole. Patient is status post cholecystectomy. Impression: Bi lateral renal calculi. Signed by: Brett Martin MD on 02/15/2019 10:52 A M Dictated By: BRETT MARTIN MD 105 Transcribed By: MICHEAL on 02/15/19 105 COPY T O: LOUIS COX MD ABDOMEN-1VIEW ([facility])2018-11-27 11:39:00 [place] [address] Patient Name: ZAYNAB FLORES MR #: [id number] : 1965 Age/Sex: 53/M Req #: [id number] Adm Physician: Ordered by: LOUIS COX MD Report #: [id number] Location: RAD Room/Bed: Procedure: 3026-4137 DX/ABDOMEN-1VIEW (KUB) Exam Date: 11/27/18 Exam Jerry e: 1117 REPORT STATUS: Signed KU B on 4 radiographs Clinical indication: Calculus Comparison: 08/13/2018 Findings: Bilateral renal calculi are again identified in the lower poles measuring 8 mm on the right and 9 mm on the left. The percutaneous drain uret eral stent has been removed. The bowel gas pattern is nonobstructed. Cholecyst ectomy clips are seen in the right upper quadrant. Impression: Bilatera l renal calculi as described above. Signed by: Brett Martin MD on 11/27 11:43 AM Dictated By: BRETT MARTIN MD 1143 Transcribed By: MICHEAL on 11/27/18 1143 COPY TO: LOUIS COX MD POC dmmkajs3813-07-32 14:46:06* Test Item Value Reference Range Interpretation Comments POC glucose (test code = 52416-2) 163 mg/dL 65-99 H Meter ID: [id number]: Juma Geno Lab Interpretation (test code = 21892-3) Abnormal [place] [facility] 12 kdft3566-76-35 07:02:05* Test Item Value Reference Range Interpretation Comments Ventricular rate (test code = 253) 82 Atrial rate (test code = 255) 82 [place] interval (test code = 266) 152 QRSD interval (test code = 260) 100 QT interval (test code = 264) 366 QTC interval (test code = 265) 427 P axis 1 (test code = 267) 45 QRS axis 1 (test code = 268) 61 T wave axis (test code = 270) 39 EKG impression (test code = 273) Normal sinus rhythm-N ormal ECG-No previous ECGs available- [place] MethodistBasic metabolic wzuos1553-01-15 16:52:08* Test Item Value Reference Range Interpretation Comments Sodium (test code = 2951-2) 140 135- 148 mEq/L Potassium (test code = 2823-3) 4.1 3.5- 5.0 mEq/L Chloride (test code = 2075-0) 100 98- 112 mEq/L CO2 (test code = 2027-9) 25 24- 31 mEq/L Anion gap (test code = 75346-8) 15@ANIO 7- 15 mEq/L BUN (test code = 3094-0) 24 mg/dL 6-20 H Creatinine (test code = 2160-0) 1.40 mg/dL 0.7-1.2 H Glucose (test code = 2345-7) 132 mg/dL 65-99 H Calcium (test code = 89684-4) 10.3 mg/dL 8.3-10.2 H Lab Interpretation (test code = 94362-5) Abnormal [facility]villeEstim[facility] XCZ8861-00-65 16:52:07* Test Item Value Reference Range Interpretation Comments Estimated GFR (test code = 5488) 56 mL/min/1.73 m2 A Catergory Units InterpretationG1 >=90 Normal or highG2 60-89 Mildly btxnakudjB7s 45-59 Mildly to moderately jdgqiaxdbW8v 30-44 Moderately to severely decreasedG4 15-29 Severely decreasedG5 <15 Kidney failureThe eGFR was calculated using the Chronic Kidney Disease Epidemiology Collaboration (CKD-EPI) equation. Interpretation is based on recommendations of the National Kidney Foundation-Kidney Disease Outcomes Quality Initiative (NKF-KDOQI) published in 2014. Lab Interpretation (test code = 16807-1) Abnormal [facility] sswubqcc8317-54-97 16:32:26* Test Item Value Reference Range Interpretation Comments WBC (test code = 53940-1) 9.78 4.50- 11.00 k/uL RBC (test code = 17147-6) 5.16 m/uL 4.4-6 HGB (test code = 718-7) 13.8 g/dL 14-18 L HCT (test code = 4544-3) 44.3 % 41-51 MCV (test code = 787-2) 85.9 fL 82-100 MCH (test code = 785-6) 26.7 pg 27-34 L MCHC (test code = 786-4) 31.2 g/dL 31-37 RDW - SD (test code = 65132-5) 48.9 fL 37-55 MPV (test code = 54549-6) 10.0 fL 8.8-13.2 Platelet count (test code = 79281-4) 265 150- 400 k/uL Nucleated RBC (test code = 55066-6) 0.00 /100 WBC Lab Interpretation (test code = 23474-7) Abnormal [place] [facility] Gkahkec4535-10-22 21:14:00* Test Item Value Reference Range Interpretation Comments Blood Culture (test code = 92772663) NO GROWTH AFTER 5 DAYS, FINAL REPORT [facility] Qepllmp7224-11-51 21:14:00* Test Item Value Reference Range Interpretation Comments Blood Culture (test code = 07804569) NO GROWTH AFTER 5 DAYS, FINAL REPORT [facility] Gxclocu3390-97-69 21:14:00* Test Item Value Reference Range Interpretation Comments Blood Culture (test code = 35075192) NO GROWTH AFTER 5 DAYS, FINAL REPORT [facility] Ixgkxhg2581-83-89 08:06:00* Test Item Value Reference Range Interpretation Comments Urine Culture (test code = 630-4) No Result Data Provided [facility] Kkdxrth5509-88-72 08:06:00* Test Item Value Reference Range Interpretation Comments Urine Culture (test code = 630-4) No Result Data Provided [facility] Dzuagmt7251-21-41 08:06:00* Test Item Value Reference Range Interpretation Comments Urine Culture (test code = 630-4) No Result Data Provided [facility] CenterBedside Hjqfyuv3004-41-66 11:54:00* Test Item Value Reference Range Interpretation Comments Bedside Glucose (test code = 14361-2) 126 70-120 H Meter ID: [id number] Medical Centerodium Level 2018-09-03 11:47:00* Test Item Value Reference Range Interpretation Comments Sodium Level (test code = 2951-2) 136 136-145 [facility] CenterPotassium Ogpwx8778-70-50 11:47:00* Test Item Value Reference Range Interpretation Comments Potassium Level (test code = 2823-3) 3.5 3.5-5.1 [facility] CenterChloride Rqaxm4484-20-23 11:47:00* Test Item Value Reference Range Interpretation Comments Chloride Level (test code = 2075-0) 107 98-107 [facility] CenterCarbon Dioxide Dwzou7055-83-47 11:47:00* Test Item Value Reference Range Interpretation Comments Carbon Dioxide Level (test code = 2028-9) 21 22-29 L [facility] CenterAnion Ayr5104-49-26 11:47:00* Test Item Value Reference Range Interpretation Comments Anion Gap (test code = 77475-4) 11.5 8-16 [facility] CenterBlood Urea Ahfkuqwv1888-65-19 11:47:00* Test Item Value Reference Range Interpretation Comments Blood Urea Nitrogen (test code = 3094-0) 9 7-26 [facility] CenterCreatinine2019-06-27 11:47:00* Test Item Value Reference Range Interpretation Comments Creatinine (test code = 2160-0) 0.91 0.72-1.25 [facility] CenterBUN/Creatinine Khtky2818-20-48 11:47:00* Test Item Value Reference Range Interpretation Comments BUN/Creatinine Ratio (test code = 3097-3) 10 09-01 [facility] CenterEstimat Glomerular Filtration Rate 2018-09-03 11:47:00* Test Item Value Reference Range Interpretation Comments Estimat Glomerular Filtration Rate (test code = 764449108) > 60 >60 Ranges were taken from the National Kidney Disease Education Program and the [facility] Foundation literature.Reference ranges:60 or greater: Nlwbjg97-53 ( for 3 consecutive months): Chronic kidney disease 15 or less: Kidney failureVal Verde Regional Medical CenterGlucose Ssavm8971-27-00 11:47:00* Test Item Value Reference Range Interpretation Comments Glucose Level (test code = OCV7058) 144 74-118 H [facility] CenterCalcium Zeegk4953-11-65 11:47:00* Test Item Value Reference Range Interpretation Comments Calcium Level (test code = 65836-7) 9.1 8.4-10.2 [facility] CenterUrine Kbtliwk7472-55-56 09:48:00* Test Item Value Reference Range Interpretation Comments Urine Culture (test code = 630-4) Organism: YEAST SPECIES [facility]CHE[facility] 2 SQMFI9120-28-91 06:05:00 [facility] [address] [place] [address] Patient Name: ZAYNAB FLORES MR #: [id number] : 1965 Age/Sex: 53/M Req #: [id number] Adm Physician: LIVAN CASTANEDA MD Ordered by: LIVAN CASTANEDA MD Report #: [id number] Location: MED/SURG2 Room/Bed: [facility] Procedure: 02 DX/CHEST 2 VIEWS Exam Date: Exam Time: REPORT STATUS: Signed EXAMINATION: PA and lateral views of the chest. COMPARISON: September 01, 2018 CLINICAL HI STORY: Pneumonia DISCUSSION: Lines/tubes: None. Lungs: Th e lungs are well inflated and clear. Right middle lobe calcified granuloma. No pneumonia or pulmonary edema. Pleura: No pleural effusion or pneumothorax. Heart and mediastinum: The cardiomediastinal silhouette is normal. Bones and soft tissues: No acute bony abnormalities. IMPRESSION: N o acute cardiopulmonary abnormalities. Signed by: Dr. Faina doherty M.D. on 09/03/2018 6:06 AM Dictated By: FAINA EAGLE MD Electr onically Signed By: FAINA EAGLE MD on 09/03/18605 Transcribed By: JEANNE Adames on 09/03/18605 COPY TO: LIVAN CASTANEDA MD Blood Culture 2018-09-02 21:14:00* Test Item Value Reference Range Interpretation Comments Blood Culture (test code = 51989225) NO GROWTH AFTER 24 HOURS [facility] CenterTogunnison [facility] hospital Wvjcdtrvh9863-34-17 05:50:00* Test Item Value Reference Range Interpretation Comments Total Bilirubin (test code = 1975-2) 1.7 0.2-1.2 H [facility] CenterAspartate Amino Transf (AST/SGOT) 2018-09-02 05:50:00* Test Item Value Reference Range Interpretation Comments Aspartate Amino Transf (AST/SGOT) (test code = Aspartate Amino Transf (AST/SGOT)) 18 5-34 [facility]Al[facility] Aminotransferase (ALT/SGPT) 2018-09-02 05:50:00* Test Item Value Reference Range Interpretation Comments Alanine Aminotransferase (ALT/SGPT) (test code = 1742-6) 26 0-[address] [facility] [place] [place] Jfxgdum8845-66-69 05:50:00* Test Item Value Reference Range Interpretation Comments Total Protein (test code = 2885-2) 6.8 6.5-8.1 [facility] CenterAlbumin2019-06-26 05:50:00* Test Item Value Reference Range Interpretation Comments Albumin (test code = 1751-7) 3.5 3.5-5.0 [facility] CenterGlobulin2019-06-26 05:50:00* Test Item Value Reference Range Interpretation Comments Globulin (test code = 37021-8) 3.3 2.3-3.5 [facility] CenterAlbumin/Globulin Sdgjk9046-33-01 05:50:00 * Test Item Value Reference Range Interpretation Comments Albumin/Globulin Ratio (test code = 1759-0) 1.1 0.8-2.0 [facility] CenterAlkaline Rsuwvfgffwn2256-99-80 05:50:00* Test Item Value Reference Range Interpretation Comments Alkaline Phosphatase (test code = 6768-6) 76 40-150 [facility] CenterWhite Blood Ftgnx3952-97-14 05:36:00* Test Item Value Reference Range Interpretation Comments White Blood Count (test code = 6690-2) 13.57 4.8-10.8 H [facility] CenterRed Blood Neuhf7255-90-65 05:36:00* Test Item Value Reference Range Interpretation Comments Red Blood Count (test code = 789-8) 4.37 4.3-5.7 [facility] CenterHemoglobin2019-06-26 05:36:00* Test Item Value Reference Range Interpretation Comments Hemoglobin (test code = 84245-4) 11.4 14.0-18.0 L [facility] CenterHematocrit2019-06-26 05:36:00* Test Item Value Reference Range Interpretation Comments Hematocrit (test code = 4544-3) 35.2 38.2-49.6 L [facility] CenterMean Corpuscular Smckhx9182-68-17 05:36:00* Test Item Value Reference Range Interpretation Comments Mean Corpuscular Volume (test code = 787-2) 80.5 81-99 L [facility] CenterMean Corpuscular Fxvdvpqerv5174-68-29 05:36:00* Test Item Value Reference Range Interpretation Comments Mean Corpuscular Hemoglobin (test code = 785-6) 26.1 28-32 L [facility] CenterMean Corpuscular Hemoglobin Concent 2018-09-02 05:36:00* Test Item Value Reference Range Interpretation Comments Mean Corpuscular Hemoglobin Concent (test code = 786-4) 32.4 31-35 [facility] CenterRed Cell Distribution Juark2227-10-40 05:36:00* Test Item Value Reference Range Interpretation Comments Red Cell Distribution Width (test code = 25544-9) 15.4 11.7 -14.4 H [facility] CenterPlatelet Jiyep9171-59-73 05:36:00* Test Item Value Reference Range Interpretation Comments Platelet Count (test code = 777-3) 244 140-360 [facility] CenterNeutrophils (%) (Auto)2018-09-02 05:36:00 * Test Item Value Reference Range Interpretation Comments Neutrophils (%) (Auto) (test code = 89076-5) 67.5 38.7-80.0 [facility] CenterLymphocytes (%) (Auto)2018-09-02 05:36:00 * Test Item Value Reference Range Interpretation Comments Lymphocytes (%) (Auto) (test code = 736-9) 19.0 18.0-39.1 [facility] CenterMonocytes (%) (Auto)2018-09-02 05:36:00* Test Item Value Reference Range Interpretation Comments Monocytes (%) (Auto) (test code = 5905-5) 10.2 4.4-11.3 [facility] CenterEosinophils (%) (Auto)2018-09-02 05:36:00 * Test Item Value Reference Range Interpretation Comments Eosinophils (%) (Auto) (test code = 713-8) 2.5 0.0-6.0 [facility] CenterBasophils (%) (Auto)2018-09-02 05:36:00* Test Item Value Reference Range Interpretation Comments Basophils (%) (Auto) (test code = 706-2) 0.4 0.0-1.0 [facility] CenterIM GRANULOCYTES %2018-09-02 05:36:00* Test Item Value Reference Range Interpretation Comments IM GRANULOCYTES % (test code = IM GRANULOCYTES %) 0.4 0.0- 1.0 [facility] CenterNeutrophils # (Auto)2018-09-02 05:36:00* Test Item Value Reference Range Interpretation Comments Neutrophils # (Auto) (test code = 751-8) 9.2 2.1-6.9 H [facility] CenterLymphocytes # (Auto)2018-09-02 05:36:00* Test Item Value Reference Range Interpretation Comments Lymphocytes # (Auto) (test code = 50572-3) 2.6 1.0-3.2 [facility] CenterMonocytes # (Auto)2018-09-02 05:36:00* Test Item Value Reference Range Interpretation Comments Monocytes # (Auto) (test code = 742-7) 1.4 0.2-0.8 H [facility] CenterEosinophils # (Auto)2018-09-02 05:36:00* Test Item Value Reference Range Interpretation Comments Eosinophils # (Auto) (test code = 711-2) 0.3 0.0-0.4 [facility] CenterBasophils # (Auto)2018-09-02 05:36:00* Test Item Value Reference Range Interpretation Comments Basophils # (Auto) (test code = 704-7) 0.1 0.0-0.1 [facility] CenterAbsolute Immature Granulocyte (auto 2018-09-02 05:36:00* Test Item Value Reference Range Interpretation Comments Absolute Immature Granulocyte (auto (chel t code = Absolute Immature Granulocyte (auto) 0.06 0-0.1 [facility] CenterLactic Acid Rlver3592-07-83 01:40:00* Test Item Value Reference Range Interpretation Comments Lactic Acid Level (test code = Lactic Acid Level) 19.0 4.5- 19.8 [facility] CenterLagaic Acid Ufihz5332-62-92 01:40:00* Test Item Value Reference Range Interpretation Comments Lactic Acid Level (test code = Lactic Acid Level) 19.0 4.5- 19.8 [facility] CenterLactic Acid Cfaqt4160-01-74 01:40:00* Test Item Value Reference Range Interpretation Comments Lactic Acid Level (test code = Lactic Acid Level) 19.0 4.5- 19.8 [facility] Kybse5552-42-91 01:40:00* Test Item Value Reference Range Interpretation Comments Lactic Acid Level (test code = Lactic Acid Level) 19.0 4.5- 19.8 [facility] CenterCHEST SINGLE (PORTABLE)2018-09-01 21:42:00 [place] [address] Patient Name: ZAYNAB FLORES MR #: [id number] : 1965 Age/Sex: 53/M Req #: [id number] Adm Physician: Ordered by: PRIYA HUYNH MD Report #: [id number] Location: ER Room/Bed: Procedure: [id number] DX/CHEST SINGLE (PORTABLE) Exam Date: 09/01/18 Exam Time: 2129 REPORT STATUS: Si gned Examination: Single AP view of the chest. COMPARISON: April 10 INDICATION: fever DISCUSSION: Lines/tubes: None. L ungs: Right perihilar opacity may reflect pneumonia. Pleura: No pleural e ffusion or pneumothorax. Heart and mediastinum: The heart and the mediasti num are unremarkable. Bones and soft tissues: No acute bony abnormalities. IMPRESSION: 1. Right perihilar opacity may reflect pneumonia. Signed by: Dr. Faina Eagle M.D. on 09/01/2018 9:46 PM Dictated By: FAINA EAGLE MD 45 Transcribed By: MICHEAL on 09/01/182145 COPY TO: NITHYA HUYNH MD Urine CNS3275-77-85 21:38:00* Test Item Value Reference Range Interpretation Comments Urine WBC (test code = 5821-4) >50 0-5 H [facility] CenterUrine XFX8619-15-23 21:38:00* Test Item Value Reference Range Interpretation Comments Urine RBC (test code = 06854-2) >50 0-5 H [facility] CenterUrine Lwpeulpw5166-04-54 21:38:00* Test Item Value Reference Range Interpretation Comments Urine Bacteria (test code = 14518-1) MANY NONE H [facility] CenterUrine Epithelial Ujsbz8358-12-69 21:38:00 * Test Item Value Reference Range Interpretation Comments Urine Epithelial Cells (test code = 32276-0) MODERATE NONE [facility] CenterUrine Svcpf0458-19-28 21:19:00* Test Item Value Reference Range Interpretation Comments Urine Color (test code = 5778-6) YELLOW YELLOW [facility] CenterUrine Pfszcqy0313-91-26 21:19:00* Test Item Value Reference Range Interpretation Comments Urine Clarity (test code = 10237-6) CLOUDY CLEAR H [facility] CenterUrine Specific Neooyvv0522-29-41 21:19:00 * Test Item Value Reference Range Interpretation Comments Urine Specific [place] (test code = 5811-5) 1.025 1.010-1.02 5 [facility] CenterUrine tT6507-75-62 21:19:00* Test Item Value Reference Range Interpretation Comments Urine pH (test code = 79555-6) 6 5-7 [facility] CenterUrine Leukocyte Niwbgpcx0087-02-47 21:19:00* Test Item Value Reference Range Interpretation Comments Urine Leukocyte Esterase (test code = 90183-7) SMALL NEGATIV E [facility] Vkopqrp5795-40-56 21:19:00* Test Item Value Reference Range Interpretation Comments Urine Nitrite (test code = 62110-9) NEGATIVE NEGATIVE [facility] Ylnjwrh2400-87-71 21:19:00* Test Item Value Reference Range Interpretation Comments Urine Protein (test code = 35153-4) 2+ NEGATIVE H [facility] CenterUrine Glucose (UA)2018-09-01 21:19:00* Test Item Value Reference Range Interpretation Comments Urine Glucose (UA) (test code = 46384-6) 3+ NEGATIVE [facility] Pkmtzhk5244-16-31 21:19:00* Test Item Value Reference Range Interpretation Comments Urine Ketones (test code = 40752-0) NEGATIVE NEGATIVE [facility] CenterUrine Dpcrdialdmph5231-00-37 21:19:00* Test Item Value Reference Range Interpretation Comments Urine Urobilinogen (test code = 29374-1) 0.2 0.2-1 [facility] CenterUrine Aqtodpatv8522-09-12 21:19:00* Test Item Value Reference Range Interpretation Comments Urine Bilirubin (test code = 1977-8) NEGATIVE NEGATIVE [facility] Ujhcj1443-92-93 21:19:00* Test Item Value Reference Range Interpretation Comments Urine Blood (test code = 03050-4) 3+ NEGATIVE [facility]NEPHROSTOMY CATHETER VDIOBUEO6717-77-60 12:48:00 [facility] [address] [place] [address] Patient Name: ZAYNAB FLORES MR #: [id number] : 1965 Age/Sex: 53/M Req #: [id number] Adm Physician: Ordered by: LOUIS COX MD Report #: [id number] Location: OR Room/Bed: Procedure: [id number] DX/NEPHROSTOMY CATHETER EXCHANGE Exam Date: Exam T rudy: REPORT STATUS: Signed Proc edure: Right nephrostomy catheter injection and exchange for a nephroureteral stent. Medications: Versed 3 mg intravenous, Fentanyl 75 mcg intravenous gi bart in an incremental fashion. The patient's vital signs, including pulse oxi metry, were continuously monitored by the interventional radiology nurse. Cuca tion time was 60 minutes or less. Fluoroscopy time: 4.4 minutes. Dose area product: 7845.7 cGycm2 Contrast used: None Estimated blood loss: Min imal. Complications: No immediate. Procedure in detail: Informed con sent for the procedure was obtained from the patient after discussion of risks and benefits. Right nephrostomy catheter was injected with dilute contrast ma terial. Images were obtained of the right renal collecting system, right urete r and bladder. 1% lidocaine was administered into the skin and subcutaneous tissues of the right catheter tract for local anesthesia. The catheter was th en removed over a 0.035 " J-wire. A 5 Bangladeshi Kumpe catheter was then advanced over the wire and utilizing a 0.035" hydrophilic Glidewire the wire and cathet er was advanced into the bladder. An Amplatz 0.035 " superstiff wire was advan elysia into the bladder through the Kumpe catheter for firm control. A 10.2 Bangladeshi 26 cm long nephroureteral stent was then placed over the Amplatz wire. Distal pigtail noted within the bladder and proximal pigtail within the renal pelvis. This was secured to the skin with 3-0 Ethilon. Instructions were gi bart for drainage into a bag for 24 hours. The drainage bag can then be removed and the catheter capped for internal drainage. Impression: 1. Right nephrostogram showing a 4-5 mm ureteral stone at the level of the sacrum that is nonobstructing. 2. Nephrostomy catheter was exchanged for a nephroureteral stent with appropriate placement. Signed by: Dr. Liv Johnston DO on 1:02 PM Dictated By: LIV JOHNSTON DO 19 Transcribed By: MICHEAL on 09/09/181619 COPY TO: LOUIS COX MD SPECIAL PROCEDURE IN CATH OYW2789-85-93 12:48:00 [place] [address] Patient Name: ZAYNAB FLORES MR #: [id number] : 1965 Age/Sex: 53/M Req #: [id number] Adm Physician: Ordered by: LOUIS COX MD Report #: [id number] Location: OR Room/Bed: Procedure: [id number] IR/SPECIAL PROCEDURE IN ACETYLENE BURNER Exam Date: Exam T rudy: REPORT STATUS: Signed Proc edure: Right nephrostomy catheter injection and exchange for a nephroureteral stent. Medications: Versed 3 mg intravenous, Fentanyl 75 mcg intravenous gi bart in an incremental fashion. The patient's vital signs, including pulse oxi metry, were continuously monitored by the interventional radiology nurse. Cuca tion time was 60 minutes or less. Fluoroscopy time: 4.4 minutes. Dose area product: 7845.7 cGycm2 Contrast used: None Estimated blood loss: Min imal. Complications: No immediate. Procedure in detail: Informed con sent for the procedure was obtained from the patient after discussion of risks and benefits. Right nephrostomy catheter was injected with dilute contrast ma terial. Images were obtained of the right renal collecting system, right urete r and bladder. 1% lidocaine was administered into the skin and subcutaneous tissues of the right catheter tract for local anesthesia. The catheter was th en removed over a 0.035 " J-wire. A 5 Bangladeshi Kumpe catheter was then advanced over the wire and utilizing a 0.035" hydrophilic Glidewire the wire and cathet er was advanced into the bladder. An Amplatz 0.035 " superstiff wire was advan elysia into the bladder through the Kumpe catheter for firm control. A 10.2 Bangladeshi 26 cm long nephroureteral stent was then placed over the Amplatz wire. Distal pigtail noted within the bladder and proximal pigtail within the renal pelvis. This was secured to the skin with 3-0 Ethilon. Instructions were gi bart for drainage into a bag for 24 hours. The drainage bag can then be removed and the catheter capped for internal drainage. Impression: 1. Right nephrostogram showing a 4-5 mm ureteral stone at the level of the sacrum that is nonobstructing. 2. Nephrostomy catheter was exchanged for a nephroureteral stent with appropriate placement. Signed by: Dr. Liv Johnston DO on 1:02 PM Dictated By: LIV JOHNSTON DO 1620 Transcribed By: MICHEAL on 09/09/18 1620 COPY TO: LOUIS COX MD - NEPH CATH PDPIKXOM6452-89-40 16:18:00 Name: SANDRAZAYNAB JADE [facility] : 1965 Age/S: 53 / M [address] [facility] Unit #: [id number] Loc: [place] [address] Phys: Jose Berger MD Acct: [id number] Di s Date: Status: [facility] PHONE #: Exam Date: 08/12/2018 1051 FAX #: [phone] Reason: EXAMS: CPT CODE: [id number] NEPH CATH EXCHA NGE 513[address] Fluoro Time: 72 DAP (Gy m2 ): 3.85 Air Kerma (mGy): 21 EXAM: Nephrostogram and exchange of a nephrostomy tube with fluoroscopic guidance; conscious sedation; INFORMATION: Obese patient with history of nephrolithiasis and recent urosepsis; he presents with an indwelling, partially dislodged nephrostomy tube and has been referred for tube exchange. TECHNIQUE AND FIND INGS: Conscious sedation start time: 1040 hours; Completion time: 10 51 hours; Under physician supervision 3 mg of Versed and 75 mcg of fentany l were administered intravenously for sedation. The patient's heart rate, blood pressure and pulse oximetry were continuously monitored by a [facility] registered nurse. Physician pafy-fx-lnse sedation time was 11 minut . After obtaining informed consent, the patient was placed prone on the procedure table. Initial evaluation showed missing sutures but the nephrostomy appeared to be still positioned within the renal pelvis. A small calcified stone projected over the lower portion of the left kid aidan, not in contact with the nephrostomy tube. Contrast material was injec yue demonstrating a nondilated collecting system and a nondilated ureter. The indwelling nephrostomy tube was then removed over a guidewire and was replaced with a new 12 Bangladeshi pigtail nephrostomy tube. This tube was coiled within the renal pelvis, was sutured to the skin and connected to a drainage bag. No complications. IMPRESSION: 1. Successful replacement of a right-sided nephrostomy tube using fluorosco pic guidance. 2. Nonobstructing stone within a lower calyx. This stone i s not in contact with the nephrostomy tube, which is positioned more fisher crab nially and with its tip in the renal pelvis. 3. Decompressed, no ndilated right renal collecting system and unremarkable right ureter. Fluoroscopy Time: 72 sec CAK : 21 mGy DAP : 3. 85 mGy sq cm PAGE 1 Signed Report (CONTINUED) Name: ZAYNAB FLORES [facility] : 1965 Age/S: 53 / M [address] [facility]: [id number] Loc: [place] [address] Phys: Rob Berger MD Acct: [id number] Dis Date: Status: [facility] PHONE #: [phone] Exam Date: 08/12/2018 1051 FAX #: [phone] Reason: EXAMS: CPT CODE: [id number] NEPH CATH EXCHANGE 41295 Fluoro Time: 72 DAP (Gy m2): 3.85 Air Kerma (mGy): 21 <Continued> at 1618 Reported and signed by: Rob Berger M.D. CC: Faina Guerrero DO; George Choudhary MD Technologist: JIMBO VALVERDE RT(R) Trnscb Date/Time: 08/17/2018 (2768) t.LUCINAW Orig Print D/T: S: 08/17/2018 (1080) PAGE 2 Signed Report ABDOMEN-1VIEW (KUB)2018-08-13 15:38:00 [place] [address] Patient Name: ZAYNAB FLORES MR #: [id number] : 1965 Age/Sex: 53/M Req #: [id number] Adm Physician: Ordered by: LOUIS CXO MD Report #: [id number] Location: OR Room/Bed: Procedure: [id number] DX/ ABDOMEN-1VIEW (KUB) Exam Date: 08/13/18 Exam Time: 1 420 REPORT STATUS: Signed Exam: KUB - 2 views Clinical History: Preoperative. Comparison: KUB 01/07/20 18. Findings: Again noted are bilateral renal stones, largest measuring up to 1.2 cm in the right lower pole kidney and 0.9 cm in the left lower pole kidney. There is a right-sided percutaneous nephrostomy catheter. Nonobstructi ve bowel gas pattern. Status post cholecystectomy. Surgical clip project s over the pelvis. No acute osseous abnormality. Impression: Bilateral renal stones as above. Right sided percutaneous nephrostomy catheter. Signed by: Dr. Amanda Shelby MD on 08/13/2018 3:42 PM Dictated By: AMANDA SHELBY MD 41 Transcribed By: MICHEAL on 08/13/181541 COPY TO: LOUIS COX MD GLUBED 2018-08-12 09:21:00* Test Item Value Reference Range Interpretation Comments GLUBED (test code = GLUBED) 122 mg/dL 74-106 H Performed by certified vegetable harvest machine operator at [facility] PROTHROMBIN [id number] 15:27:00* Test Item Value Reference Range Interpretation Comments PROTHROMBIN TIME PATIENT (test code = PTP) 12.9 seconds 9.0-14.0 N INTERNATIONAL NORMAL RATIO (test code = INR) 1.1 0.8-1.2 N The therapeutic range for oral anticoagulant therapy formost indications is an international normalized ratio (INR)of between 2.0 and 3.0. The recommended therapeutic INRrange for various clinical situations is listed below: Clinical Situation INR range Pulmonary e mbolism treatment (2.0-3.0)Venous thrombosis treatmentVenous thrombosis prophylaxis (high risk surgery)Prevention of systemic embolism from: Acute myocardial infarction Valvular heart disease Atrial fibrillation Mechanical prosthetic heart valves (2.5-3.5) THROMBOPLASTIN TIME JQQEJFH2744-99-82 15:27:00* Test Item Value Reference Range Interpretation Comments THROMBOPLASTIN TIME PARTIAL (test code = PTT) 32.2 seconds 25.0-36. 5 N CBC W/AUTO MKXT0559-23-48 15:19:00* Test Item Value Reference Range Interpretation Comments WHITE BLOOD CELL (test code = WBC) 7.3 K/mm3 4.5-12.5 N RED BLOOD CELL (test code = RBC) 4.38 mill/mm3 4.0-5.8 N HEMOGLOBIN (test code = HGB) 11.3 gram/dL 13.0-17.5 L HEMATOCRIT (test code = HCT) 36.5 % 42.0-52.0 L MEAN CELL VOLUME (test code = MCV) 83.3 fL 80-98 N MEAN CELL HGB (test code = MCH) 25.8 picogram 27.0-33.0 L MEAN CELL HGB CONCETRATION (test code = MCHC) 31.0 gram/dL 33.0-36. 0 L RED CELL DISTRIBUTION WIDTH (test code = RDW) 14.9 % 11.6-16. 2 N RED CELL DISTRIBUTION WIDTH SD (test code = RDW-SD) 45.2 fL 37 .0-51.0 N PLATELET COUNT (test code = PLT) 301 K/mm3 150-450 N MEAN PLATELET VOLUME (test code = MPV) 10.1 fL 6.7-11.0 N NEUTROPHIL % (test code = NT%) 50.2 % 39.0-69.0 N IMMATURE GRANULOCYTE % (test code = IG%) 0.4 % 0.0-5.0 N LYMPHOCYTE % (test code = LY%) 36.3 % 25.0-55.0 N MONOCYTE % (test code = MO%) 9.4 % 0.0-10.0 N EOSINOPHIL % (test code = EO%) 3.3 % 0.0-5.0 N BASOPHIL % (test code = BA%) 0.4 % 0.0-1.0 N NUCLEATED RBC % (test code = NRBC%) 0.0 % 0-0 N NEUTROPHIL # (test code = NT#) 3.68 K/mm3 1.8-7.7 N IMMATURE GRANULOCYTE # (test code = IG#) 0.03 x10 3/uL 0-0.03 N LYMPHOCYTE # (test code = LY#) 2.66 K/mm3 1.0-5.0 N MONOCYTE # (test code = MO#) 0.69 K/mm3 0-0.8 N EOSINOPHIL # (test code = EO#) 0.24 K/mm3 0.0-0.5 N BASOPHIL # (test code = BA#) 0.03 K/mm3 0.0-0.2 N NUCLEATED RBC # (test code = NRBC#) 0.00 K/mm3 0.0-0.1 N MANUAL DIFF REQUIRED (test code = MDIFF) CHEM GOLCM3523-13-97 22:43:0070 [facility] LPKAP3986-99-19 22:43:0016 [facility] UCYEC0083-34-11 22:43:001.16 [facility] NXATB8710-41-82 22:43:92655YH [facility] JUMBJ3230-07-12 22:43:46051UI [facility] PANEL 2018-03-13 22:43:003.8 [facility] CFLGF2048-04-41 22:43:009.0[facility] CHEM MYFLN0404-61-65 22:43:0030 [facility] EEPIJ9115-59-11 22:43:89273KS [facility] EAEXV9803-53-35 22:43:009.8 QyzryanapFEDGHZWCCB0577-20-67 22:43:008.3M WpvcetlseSNFCFDEIPH7165-02-51 22:43:0059.7 [facility] 2018-03-13 22:43:0028.6M EqdlpaktoHTZCGUEVFF6258-88-05 22:43:002.9[facility] GDSSHXCWQV8289-00-88 22:43:000.7 KxuapccpoLVEDJILULV8085-43-49 22:43:000.3M KfpiavwssLIUHHNHKPJ7949-50-24 22:43:000.5 NsbitrwqkWHFAORVBDG8268-38-98 22:43:005.3M OcxgbdhmaOTKAGIKYZX1743-79-65 22:43:002.6M [facility] 2018-03-13 22:43:27002YU VtwxtxusqWPCIDRMCGI3192-07-63 22:43:0015.1M [facility] VGZOYRSBTR4000-43-19 22:43:008.8 IvmgffgysWEGUQZILKG2971-29-52 22:43:0014.3M HonhinxjaHFDCHFTDFO3945-43-07 22:43:008.9 YoyyvrdmnUMQEBQIPUX0662-54-05 22:43:005.11 MbjdhlzbaONNHBFANEP7412-93-86 22:43:0043.2MH [facility] 2018-03-13 22:43:0033.1MH FdvmdgqedZCNCHUEZEC7484-02-17 22:43:00* Test Item Value Reference Range Interpretation Comments MCH (test code = MCH) 28.0 pg 27.0-31.0 UitjijyqtIOZBTGYCTH8474-21-70 22:43:0084.6MH [facility]STR[facility] 2018-03-13 22:43:007.8 SoutheastABDOMEN-1VIEW (KUB)2018-01-06 09:00:00 [place] [address] Patient Name: ZAYNAB FLORES MR #: [id number] : 1965 Age/Sex: 52/M Req #: [id number] Adm Physician: Ordered by: LOUIS COX MD Report #: [id number] Location: OR Room/Bed: Procedure: [id number] DX/ ABDOMEN-1VIEW (KUB) Exam Date: 01/06/18 Exam Time: 0 625 REPORT STATUS: Signed Exam: KUB History: Stones Comparison: 09/26/2017 Findings: There are mu ltiple stones overlying both kidneys. Largest measures approximately 12 mm ove r the lower pole of the right kidney. Single clip in the pelvis is noted. Dege nerative changes of the spine is most pronounced at L3-L4. Impression: Bilateral renal lithiasis. Signed by: Dr. Liv Johnston DO on 01/07/20 9:03 AM Dictated By: LIV JOHNSTON DO 2 Transcribed By: MICHEAL on 01/06/18902 COPY TO: LOUIS COX MD Bedside Kfxryed8408-98-35 07:49:00* Test Item Value Reference Range Interpretation Comments Bedside Glucose (test code = 90386-9) 161 70-120 H Meter ID: [id number] CenterBlood Urea Nitrogen 2018-01-05 10:36:00* Test Item Value Reference Range Interpretation Comments Blood Urea Nitrogen (test code = 3094-0) 18 - [facility] CenterBUN/Creatinine Lvboc5879-46-94 10:36:00* Test Item Value Reference Range Interpretation Comments BUN/Creatinine Ratio (test code = 3097-3) 17 6- [facility] Ievol8815-94-74 10:23:00* Test Item Value Reference Range Interpretation Comments Sodium Level (test code = 2951-2) 141 136-145 [facility] CenterPotassium Naoaf4080-35-49 10:23:00* Test Item Value Reference Range Interpretation Comments Potassium Level (test code = 2823-3) 3.6 3.5-5.1 [facility] [facility] CenterChloride Fbqds3659-16-43 10:23:00* Test Item Value Reference Range Interpretation Comments Chloride Level (test code = 2075-0) 107 98-107 [facility] CenterCarbon Dioxide Dfkwe6117-41-13 10:23:00* Test Item Value Reference Range Interpretation Comments Carbon Dioxide Level (test code = 2028-9) 24 22-29 [facility] CenterAnion Shh3052-70-06 10:23:00* Test Item Value Reference Range Interpretation Comments Anion Gap (test code = 39716-8) 13.6 8-16 [facility] CenterCreatinine2018-10-29 10:23:00* Test Item Value Reference Range Interpretation Comments Creatinine (test code = 2160-0) 1.04 0.72-1.25 [facility] CenterEstimat Glomerular Filtration Rate 2018-01-05 10:23:00* Test Item Value Reference Range Interpretation Comments Estimat Glomerular Filtration Rate (test code = 449315368) > 60 >60 Ranges were taken from the National Kidney Disease Education Program and the [facility] literature.Reference ranges:60 or greater: Dcngyc66-49 ( for 3 consecutive months): Chronic kidney disease 15 or less: Kidney failureVal Verde Regional Medical CenterGlucose Zunty5996-43-04 10:23:00* Test Item Value Reference Range Interpretation Comments Glucose Level (test code = PVW1324) 154 74-118 H [facility] CenterCalcium Tyjjl5822-95-54 10:23:00* Test Item Value Reference Range Interpretation Comments Calcium Level (test code = 30579-5) 9.5 8.4-10.2 [facility] CenterABDOMEN-1VIEW (KUB)2017-09-26 12:30:00 [place] [address] Patient Name: ZAYNAB FLORES MR #: [id number] : 1 04/03/1964 Age/Sex: 52/M Req #: [id number] Adm Physician: Ordered by: LOUIS COX MD Report #: [id number] Location: [facility]/ d: Procedure: [id number] DX/ABDOMEN-1VIEW (KUB) Exam Date: 09/26/17 Exam Time: 1209 REPORT STATUS: S igned PROCEDURE: X-RAY ABDOMEN - KUB COMPARISON: 09/02/2017 IN DICATIONS: RENAL STONES FOLLOW UP FINDINGS: One view of the abdomen (A P supine). The left double-J nephroureteral stent has been removed. There is a questionable 7 mm calcification projected over the left distal ureter 6 mm calcification projected over the inferior pole of the left kidney. 9 mm calcification projects over the inferior pole the right kidney. There are no dilated loops of bowel to suggest obstruction. there are no masses. There is no evidence of free air. No acute osseous abnormalities are present. CONCLUSION: The left double-J nephroureteral stent has been mandy valerie. There is a questionable residual calcification projected over the left d istal ureter. This could be confirmed with noncontrast CT of the abdomen and pelvis. Bilateral renal stones, otherwise unchanged. Dictated by: Alexia Harris M.D. on 09/26/2017 at 12:30 Electronically approved by: Alexia Harris M.D. on 09/26/2017 at 12:30 Dictated By: Shara HARRIS MD 12 30 Transcribed By: LOUISA on 09/26/17 1230 COPY TO: LOUIS COX MD ABDOMEN-1VIEW (KUB)2017-09-02 06:32:00 [place] [address] Patient Name: ZAYNAB FLORES MR #: [id number] : 1965 Age/Sex: 52/M Req #: [id number] Adm Physician: Ordered by: LOUIS COX MD Report #: [id number] Location: OR Room/Bed: Procedure: [id number] DX/ABDOMEN-1VIEW (KUB) Exam D ate: Exam Time: REPORT STATUS: Signed EXAM : ABDOMEN-1VIEW (KUB) DATE: 09/02/2017 6:05 AM Time stamp on exam: 0604 exam INDICATION: Renal stones COMPARISON: July 09, 2017 FINDINGS: RICHARD ES/TUBES: Interval placement of double-J ureteral stent along the left ureter BOWEL PATTERN: No evidence for obstruction. SOFT TISSUES: Cholecystect maliha clips are present. Multiple bilateral nephrolithiasis overlying the int erpolar and inferior renal collecting system of the right kidney measuring, th e largest 1 cm in largest dimension Multiple calcific densities overlying the inferior left renal shadow overlying the inferior renal collecting system, the largest measuring 9 mm in diameter. There are at least 2 calcific den sities abutting the double-J ureteral stent, the largest measuring 1.8 cm in l ongest dimension LUNG BASES: Not included BONES: No acute findings. IMPRESSION: 1. Bilateral nephrolithiasis. 2. There are at least 2 stones in the distribution of the proximal left ureter abutting the double-J ureteral stent. Signed by: Dr. Satinder Penny M.D. on 09/02/2017 6:36 AM D ictated By: SATINDER RAMIREZ MD 5 Transcribed By: MICHEAL on 09/02/17635 COPY TO: LOUIS COX MD Bedside Plsjhca3398-85-56 12:01:00* Test Item Value Reference Range Interpretation Comments Bedside Glucose (test code = 51973-6) 172 70-120 H Meter ID: [id number] Medical Centerodium Level 2017-07-09 07:18:00* Test Item Value Reference Range Interpretation Comments Sodium Level (test code = 2951-2) 139 136-145 [facility] CenterPotassium Hxzyr5943-80-04 07:18:00* Test Item Value Reference Range Interpretation Comments Potassium Level (test code = 2823-3) 3.7 3.5-5.1 [facility] CenterChloride Yheod5253-96-04 07:18:00* Test Item Value Reference Range Interpretation Comments Chloride Level (test code = 2075-0) 108 98-107 H [facility] CenterCarbon Dioxide Bubmt4436-29-49 07:18:00* Test Item Value Reference Range Interpretation Comments Carbon Dioxide Level (test code = 2028-9) 22 22-29 [facility] CenterAnion Vsf8748-66-34 07:18:00* Test Item Value Reference Range Interpretation Comments Anion Gap (test code = 73275-0) 12.7 8-16 [facility] CenterBlood Urea Udhzelcl0620-59-46 07:18:00* Test Item Value Reference Range Interpretation Comments Blood Urea Nitrogen (test code = 3094-0) 18 7-26 [facility] CenterCreatinine2018-05-02 07:18:00* Test Item Value Reference Range Interpretation Comments Creatinine (test code = 2160-0) 1.46 0.72-1.25 H [facility] CenterBUN/Creatinine Bwpfe9211-12-37 07:18:00* Test Item Value Reference Range Interpretation Comments BUN/Creatinine Ratio (test code = 3097-3) 12 6- [facility] CenterEstimat Glomerular Filtration Rate 2017-07-09 07:18:00* Test Item Value Reference Range Interpretation Comments Estimat Glomerular Filtration Rate (test code = 00360-2) 50 >60 L Ranges were taken from the National Kidney Disease Education Program and the [facility] [employer] literature.Reference ranges:60 or greater: Xtqkgs70-59 ( for 3 consecutive months): Chronic kidney disease 15 or less: Kidney failureVal Verde Regional Medical CenterGlucose Pdsih5259-76-87 07:18:00* Test Item Value Reference Range Interpretation Comments Glucose Level (test code = JWI7988) 142 74-118 H [facility] CenterCalcium Flsal4534-68-75 07:18:00* Test Item Value Reference Range Interpretation Comments Calcium Level (test code = 49476-8) 8.5 8.4-10.2 [facility] CenterTotal Megjpgnpb7543-83-22 07:18:00* Test Item Value Reference Range Interpretation Comments Total Bilirubin (test code = 1975-2) 1.4 0.2-1.2 H [facility] CenterAspartate Amino Transf (AST/SGOT) 2017-07-09 07:18:00* Test Item Value Reference Range Interpretation Comments Aspartate Amino Transf (AST/SGOT) (test code = Aspartate Amino Transf (AST/SGOT)) 19 5-34 [facility] CenterAlanine Aminotransferase (ALT/SGPT) 2017-07-09 07:18:00* Test Item Value Reference Range Interpretation Comments Alanine Aminotransferase (ALT/SGPT) (test code = 1742-6) 23 0-55 [facility] CenterTotal Dsxxrpq5020-98-97 07:18:00* Test Item Value Reference Range Interpretation Comments Total Protein (test code = 2885-2) 6.4 6.5-8.1 L [facility] CenterAlbumin2018-05-02 07:18:00* Test Item Value Reference Range Interpretation Comments Albumin (test code = 1751-7) 3.3 3.5-5.0 L [facility] CenterGlobulin2018-05-02 07:18:00* Test Item Value Reference Range Interpretation Comments Globulin (test code = 19472-0) 3.1 2.3-3.5 [facility] CenterAlbumin/Globulin Pjaxy2084-66-44 07:18:00 * Test Item Value Reference Range Interpretation Comments Albumin/Globulin Ratio (test code = 1759-0) 1.1 0.8-2.0 [facility] CenterAlkaline Huejvyrzntc1126-66-00 07:18:00* Test Item Value Reference Range Interpretation Comments Alkaline Phosphatase (test code = 6768-6) 65 40-150 [facility] CenterWhite Blood Cvzei7053-92-42 06:46:00* Test Item Value Reference Range Interpretation Comments White Blood Count (test code = 6690-2) 7.47 4.8-10.8 [facility] CenterRed Blood Vflhv8447-18-61 06:46:00* Test Item Value Reference Range Interpretation Comments Red Blood Count (test code = 789-8) 4.51 4.3-5.7 [facility] CenterHemoglobin2018-05-02 06:46:00* Test Item Value Reference Range Interpretation Comments Hemoglobin (test code = 59094-1) 12.5 14.0-18.0 L [facility] CenterHematocrit2018-05-02 06:46:00* Test Item Value Reference Range Interpretation Comments Hematocrit (test code = 4544-3) 38.4 38.2-49.6 [facility] CenterMean Corpuscular Qtacqf4611-82-22 06:46:00* Test Item Value Reference Range Interpretation Comments Mean Corpuscular Volume (test code = 787-2) 85.1 81-99 [facility] CenterMean Corpuscular Wxfcjvynne6273-70-03 06:46:00* Test Item Value Reference Range Interpretation Comments Mean Corpuscular Hemoglobin (test code = 785-6) 27.7 28-32 L [facility]an Corpuscular Hemoglobin Concent 2017-07-09 06:46:00* Test Item Value Reference Range Interpretation Comments Mean Corpuscular Hemoglobin Concent (test code = 786-4) 32.6 31-35 [facility] CenterRed Cell Distribution Nmvkq2913-54-34 06:46:00* Test Item Value Reference Range Interpretation Comments Red Cell Distribution Width (test code = 12722-9) 15.0 11.7 -14.4 H [facility] CenterPlatelet Vynaa8137-75-85 06:46:00* Test Item Value Reference Range Interpretation Comments Platelet Count (test code = 777-3) 192 140-360 [facility] CenterNeutrophils (%) (Auto)2017-07-09 06:46:00 * Test Item Value Reference Range Interpretation Comments Neutrophils (%) (Auto) (test code = 73159-8) 73.5 38.7-80.0 [facility] CenterLymphocytes (%) (Auto)2017-07-09 06:46:00 * Test Item Value Reference Range Interpretation Comments Lymphocytes (%) (Auto) (test code = 736-9) 11.8 18.0-39.1 L [facility] CenterMonocytes (%) (Auto)2017-07-09 06:46:00* Test Item Value Reference Range Interpretation Comments Monocytes (%) (Auto) (test code = 5905-5) 12.0 4.4-11.3 H [facility] CenterEosinophils (%) (Auto)2017-07-09 06:46:00 * Test Item Value Reference Range Interpretation Comments Eosinophils (%) (Auto) (test code = 713-8) 2.3 0.0-6.0 [facility] CenterBasophils (%) (Auto)2017-07-09 06:46:00* Test Item Value Reference Range Interpretation Comments Basophils (%) (Auto) (test code = 706-2) 0.1 0.0-1.0 [facility] CenterIM GRANULOCYTES %2017-07-09 06:46:00* Test Item Value Reference Range Interpretation Comments IM GRANULOCYTES % (test code = IM GRANULOCYTES %) 0.3 0.0- 1.0 [facility] CenterNeutrophils # (Auto)2017-07-09 06:46:00* Test Item Value Reference Range Interpretation Comments Neutrophils # (Auto) (test code = 751-8) 5.5 2.1-6.9 [facility] CenterLymphocytes # (Auto)2017-07-09 06:46:00* Test Item Value Reference Range Interpretation Comments Lymphocytes # (Auto) (test code = 95121-2) 0.9 1.0-3.2 L [facility] CenterMonocytes # (Auto)2017-07-09 06:46:00* Test Item Value Reference Range Interpretation Comments Monocytes # (Auto) (test code = 742-7) 0.9 0.2-0.8 H [facility] CenterEosinophils # (Auto)2017-07-09 06:46:00* Test Item Value Reference Range Interpretation Comments Eosinophils # (Auto) (test code = 711-2) 0.2 0.0-0.4 [facility] CenterBasophils # (Auto)2017-07-09 06:46:00* Test Item Value Reference Range Interpretation Comments Basophils # (Auto) (test code = 704-7) 0.0 0.0-0.1 [facility] CenterAbsolute Immature Granulocyte (auto 2017-07-09 06:46:00* Test Item Value Reference Range Interpretation Comments Absolute Immature Granulocyte (auto (chel t code = Absolute Immature Granulocyte (auto) 0.02 0-0.1 [facility] CenterProthrombin Fsuz3860-71-81 06:58:00* Test Item Value Reference Range Interpretation Comments Prothrombin Time (test code = 5902-2) 13.1 11.9-14.5 [facility] CenterProthromb Time International Ratio 2017-07-08 06:58:00* Test Item Value Reference Range Interpretation Comments Prothromb Time International Ratio (test code = 6301-6) 1.07 Oral Anticoagulant Therapy INR Values:1. Low Intensity Therapy 1.5 - 2.02 . Moderate Intensity Therapy 2.0 - 3.03. High Intensity Therapy(1) 2.5 - 3. 54. High Intensity Therapy(2) 3.0 - 4.05. Panic Value INR > 5.0 [facility] CenterActivated Partial Thromboplast Time 2017-07-08 06:58:00* Test Item Value Reference Range Interpretation Comments Activated Partial Thromboplast Time (test code = 89494-8) 31.3 23.8-35.5 [facility] CenterAmylase Wgegj3609-38-29 06:57:00* Test Item Value Reference Range Interpretation Comments Amylase Level (test code = 1798-8) 29 25-125 [facility] CenterLipase2018-05-01 06:57:00* Test Item Value Reference Range Interpretation Comments Lipase (test code = 3040-3) 72 8-78 [facility] CenterUrine SWY4324-90-75 05:43:00* Test Item Value Reference Range Interpretation Comments Urine WBC (test code = 5821-4) 6-10 0-5 H [facility] CenterUrine LDP4603-44-59 05:43:00* Test Item Value Reference Range Interpretation Comments Urine RBC (test code = 29986-8) 21-50 0-5 H [facility] CenterUrine Fifjdexb0682-40-86 05:43:00* Test Item Value Reference Range Interpretation Comments Urine Bacteria (test code = 42996-7) RARE NONE [facility] CenterUrine Epithelial Wnolg1443-94-27 05:43:00 * Test Item Value Reference Range Interpretation Comments Urine Epithelial Cells (test code = 20420-1) RARE NONE [facility] CenterUrine Dmmle9916-68-93 05:24:00* Test Item Value Reference Range Interpretation Comments Urine Color (test code = 5778-6) YELLOW YELLOW [facility] CenterUrine Squojmy6201-51-55 05:24:00* Test Item Value Reference Range Interpretation Comments Urine Clarity (test code = 79819-0) CLEAR CLEAR [facility] CenterUrine Specific Cjircil1377-97-34 05:24:00 * Test Item Value Reference Range Interpretation Comments Urine Specific [place] (test code = 5811-5) 1.025 1.010-1.02 5 [facility] CenterUrine rD6171-47-44 05:24:00* Test Item Value Reference Range Interpretation Comments Urine pH (test code = 51114-7) 5 5-7 [facility] CenterUrine Leukocyte Vexhfoph6913-88-81 05:24:00* Test Item Value Reference Range Interpretation Comments Urine Leukocyte Esterase (test code = 5799-2) NEGATIVE NEGATIVE [facility] CenterUrine Aythkdj0477-02-25 05:24:00* Test Item Value Reference Range Interpretation Comments Urine Nitrite (test code = 66607-9) NEGATIVE NEGATIVE [facility] CenterUrine Kwezorm4067-08-78 05:24:00* Test Item Value Reference Range Interpretation Comments Urine Protein (test code = 5804-0) 1+ NEGATIVE H [facility] CenterUrine Glucose (UA)2017-07-08 05:24:00* Test Item Value Reference Range Interpretation Comments Urine Glucose (UA) (test code = 2349-9) 2+ NEGATIVE H [facility] CenterUrine Qtgnqir4325-64-78 05:24:00* Test Item Value Reference Range Interpretation Comments Urine Ketones (test code = 84311-9) NEGATIVE NEGATIVE [facility] CenterUrine Pjnrxhzknxfj8311-86-43 05:24:00* Test Item Value Reference Range Interpretation Comments Urine Urobilinogen (test code = 10709-4) 0.2 0.2-1 [facility] CenterUrine Akwdufizv2626-70-50 05:24:00* Test Item Value Reference Range Interpretation Comments Urine Bilirubin (test code = 1978-6) NEGATIVE NEGATIVE [facility] CenterUrine Lnnho1200-61-34 05:24:00* Test Item Value Reference Range Interpretation Comments Urine Blood (test code = 61935-5) 2+ NEGATIVE H [facility] CenterURINALYSIS2013-10-02 18:30:00>182[facility] HospitalDnnrkyjpiOUVIUUZPJJ4102-61-10 18:30:00Occasional /LPF *NA*(12/09/2012 13:30:00) [facility] HospitalTwkduvkktCVBJVTELWQ9017-10-86 18:30:009[facility] HospitalWkqdvuneyCBBBKBPUQF9641-14-36 18:30:00Clear (12/09/2012 13:30:00) [facility] HospitalJjkovvdprKJJKMBXBIC4094-82-58 18:30:00 Negative mg/dL (12/09/2012 13:30:00) [facility] HospitalHwiwilumfHWNBEBAECL6781-67-39 18:30:00 5.0[place] HospitalRxhmtehgeLUJIRIBDVN7354-28-92 18:30:001.015[facility] HospitalALYS 2012-12-09 18:30:00Large *ABN*(12/09/2012 13:30:00) [facility] 2012-12-09 18:30:002.0[place] HospitalEnfefsrodDEQATZKDKN3057-84-65 18:30:00Positive *ABN*(12/09/2012 13:30:00) [facility]EqomlbqwhCEDVRNGYMD3360-91-77 18:30:00Negative (12/09/2012 13:30:00) [facility] HospitalGgtcikcdlJPBFHIIHNZ8753-64-60 18:30:00Negative mg/dL *NA*(12/09/2012 13:30:00) [facility] HospitalAtnzfyfixZRNUBOFMLY7011-84-39 18:30:00Negative mg/dL *NA*(12/09/2012 13:30:00) [facility] HospitalMmdstemzlAWZVJOARIX5717-08-59 18:30:00 Negative *NA*(12/09/2012 13:30:00) MH EhaxcqrfmZRAHJWTSN3675-67-00 15:20:0078 WviicdbcgSCEGPKTFF4587-97-03 15:20:0029 VznlchqnpJFPNWNXQT2380-12-25 15:20:00 1.1M JqnsrwpcgGXPCNVDFB1203-90-71 15:20:99008DS IqgvmosreCNRFJPCWL1110-74-67 15:20:0015 BbmvtkcnqYNLLZZTKO1721-79-64 15:20:008.7 SoutheastCHEMISTRY 2012-12-04 15:20:003.9 IlmnrawtdURKAXTWRA2492-74-45 15:20:87390LM [facility] GFZOCHQCA2092-66-40 15:20:45929NN LectqmcyzSEHBMXOBV3795-53-90 15:20:0011.9 PebjaxqlvJRZCTMIKUF5779-34-62 15:20:0011.7 PfefqwodtMSIHHSCTQZ6081-60-10 15:20:0083.6M ApgatytjoOHHPUMGPID1518-16-17 15:20:0036.1M SoutheastHEMATOLOGY 2012-12-04 15:20:0014.2M UybhwavegKOSJYPRASM0515-80-40 15:20:76355GM[facility] BQPSLNFNUK0167-37-70 15:20:008.7 ElufrwgkhYFMZFUBOQJ9376-40-93 15:20:004.32 LbyexgzdxRHMALVWPVS5889-45-94 15:20:0032.3M GhqzuthwvZAROTPXGHX7321-79-30 15:20:00* Test Item Value Reference Range Interpretation Comments MCH (test code = MCH) 27.0 pg 27.0-31.0 N DdecjalrgNVOZCGUPQE1270-78-16 15:20:007.0 BulfnxipfTUFAKLWLNL6364-05-78 15:20:005.0 UollkdyhfXBHVBERDCC8454-44-61 15:20:000.2M SoutheastHEMATOLOGY 2012-12-04 15:20:000.1M KndwgugvfOHJPODHZNH4338-46-86 15:20:000.6[facility] ZUHHLFYZAY0764-12-36 15:20:001.2M ZheqyfkwvJODYYUZDQI5782-45-92 15:20:0072.1M RndwuwnasZCKZTCISVW7520-14-19 15:20:002.1M XwxhjuaqpCBZUULDOTG4332-46-18 15:20:008.7MH FohcfvdbxYODUSXKEBS8052-79-23 15:20:0016.9[facility] 2012-12-04 15:20:000.0[facility] HospitalKcapprocuJPQBURWUHB7323-59-64 15:20:00* Test Item Value Reference Range Interpretation Comments PTT (test code = PTT) 30.0 s 22.9-35.8 N [facility] HospitalSkorhrcwxZVGVEOSWHX4859-93-82 15:20:00* Test Item Value Reference Range Interpretation Comments PT (test code = PT) 12.8 s 12.0-14.7 N [facility] HospitalCdjqtobzyGSLPXLTHVI9039-35-38 15:20:000.97MH [facility]-1VIEW (KUB) [place] [address] Patient Name: ZAYNAB FLORES MR #: [id number] : 1 04/03/1964 Age/Sex: 52/M Req #: [id number] Adm Physician: GISELA CARABALLO MD Ordered by: AKOSUA LAMAR MD Report #: [id number] Location : [facility] Room/Bed: [place] [address] Procedure: [id number] DX/A BDOMEN-1VIEW (KUB) Exam Date: 07/09/17 Exam Time: 16 50 REPORT STATUS: Signed PROCEDURE: X-RAY ABDOMEN - KUB COMPARI SON: [facility], CT, CT ABDOMEN AND PELVIS WITHOUT CONTRAST, 1 03/21/2008, 15:21. INDICATIONS: KIDNEY STONES FINDINGS: Bowel gas pattern: Unremarkable. There are mildly distended small bowel loops measu ring up to 3.4 cm in diameter. No dilated large bowel. No pneumatosis. Calcifications: At least 3 calcifications over the right renal shadow measure up to 8 mm. Cluster calcifications in the lower pole of the left kidney jamie ure up to 8 mm. A potential calcification over the left psoas measures 10 mm. Surgical clips in the posterior right pelvis are stable. No calcificat ions in the pelvis. Bones: Levoscoliosis of the lumbar spine is similar wi th superimposed degenerative changes. CONCLUSION: Bilateral in trarenal calculi. A calculus in the left ureter cannot be excluded. Dictated by: Dharmesh Daniels M.D. on 07/09/2017 at 17:25 Electronically approved by: Dharmesh Daniels M.D. on 07/09/2017 at 17:25 Dic tated By: DHARMESH DANIELS MD 24 COPY TO: AKOSUA LAMAR MD CT ABDOMEN/PELVIS WO [place] [address] Patient Name: ZAYNAB FLORES MR #: [id number] : 1965 Age/Sex: 52/M Req #: [id number] Adm Physician: Ordered by: TRE SALAS MD Report #: [id number] Location: ER Room/Bed: Procedure: [id number] CT/CT ABDOMEN/PELVIS WO Ex am Date: Exam Time: REPORT STATUS: Signed EXAM: CT ABDOMEN AND PELVIS without IV CONTRAST INDICATION: Abdominal pain, l eft flank pain COMPARISON: CT of the abdomen and pelvis without IV contrast N 2008 TECHNIQUE: The abdomen and pelvis were scanned using a multidetec tor helical scanner. Coronal and sagittal reformations were obtained. Renal st one protocol performed. IV Contrast: None Oral Contrast: None CTDIvol weir s been reviewed. It is below the limits set by the Radiation Protocol Committe e (RPC). FINDINGS: LOWER THORAX: No consolidations LIVER: No masses BILIARY: Cholecystectomy. No ductal dilation. SPLEEN: No masses PANCRE : No masses ADRENALS: No nodules RIGHT KIDNEY: There are 4 stones th roughout the right kidney, the largest is in the inferior pole measuring 8 mm. No hydronephrosis. No ureteral stones. LEFT KIDNEY: There is a 9 mm left proximal ureteral stone at the L3/L4 level resulting in moderate hydroureteron ephrosis and significant perinephric fat stranding. Multiple stones in the inf erior pole measuring up to 1.5 cm in conglomerate. GI TRACT: No wall thic kening or obstruction. VESSELS: Unremarkable PERITONEUM/RETROPER ITONEUM: No free air or fluid LYMPH NODES: No lymphadenopathy REPRODUCTIV E ORGANS: Normal BLADDER: Normal SOFT TISSUES: Normal BONES: Advanced d egenerative disc L3/L4. IMPRESSION: There is a 9 mm stone in the proximal left ureter resulting in moderate hydroureteronephrosis and marked perinephric fat stranding. Bilateral nephrolithiasis, decreased on the right and incr eased on the left compared to 2009. Signed by: Bradly Elise on 07/08/2017 5:45 AM Dictated By: BRISSA HART MD Electronically Penny d By: BRISSA HART MD on 07/08/17 0545 Transcribed By: MICHEAL on 07/08/17 054 5 COPY TO: TRE SALAS MD
[2019-08-11] MEDS ORDERED: SODIUM CHLORIDE 0.9% 1000ML 1,000 ML IV STA (10:02)
[2019-08-11] MEDS ORDERED: ONDANSETRON HCL INJ 2MG/ML 2ML 2 MG/ML VIAL IV STA (10:02)
[2019-08-11] MEDS ORDERED: MORPHINE SULFATE INJ 4 MG/ML INJ 1ML IV STA (10:16)
[2019-08-11 10:45] LABS: BASOPHILS % 0.3 % (0.0-1.0); EOSINOPHILS # (AUTO) 0.3 (0.0-0.4); EOSINOPHILS % 3.6 % (0.0-6.0); HEMATOCRIT 44.5 % (38.2-49.6); HEMOGLOBIN 13.8 g/dL (14.0-18.0); MEAN CORPUSCULAR HEMOGLOBIN 26.3 pg (28-32); MEAN CORPUSCULAR VOLUME 84.8 fL (81-99); MONOCYTES # (AUTO) 0.7 (0.2-0.8); MONOCYTES % 8.1 % (4.4-11.3); NEUTROPHILS # (AUTO) 5.9 (2.1-6.9); NEUTROPHILS % 65.7 % (38.7-80.0); PLATELET COUNT 283 x10e3/uL (140-360); RED BLOOD COUNT 5.25 x10e6/uL (4.3-5.7); RED CELL DISTRIBUTION WIDTH 15.2 % (11.7-14.4)
[2019-08-11 11:00] LABS: CLARITY,URINE CLOUDY (CLEAR); COLOR,URINE YELLOW (YELLOW)
[2019-08-11 11:01] LABS: BILIRUBIN,URINE NEGATIVE (NEGATIVE); KETONES,URINE NEGATIVE (NEGATIVE); LEUKOCYTE ESTERASE ,URINE MODERATE (NEGATIVE); NITRITE,URINE NEGATIVE (NEGATIVE); PROTEIN,URINE DIPSTICK 2+ (NEGATIVE); URINE UROBILINOGEN 0.2 mg/dL (0.2 - 1)
[2019-08-11 11:03] LABS: INR 0.86; PROTHROMBIN TIME 12.2 seconds (11.9-14.5)
[2019-08-11 11:04] LABS: PARTIAL THROMBOPLASTIN TIME 31.2 seconds (23.8-35.5)
[2019-08-11 11:16] LABS: ALBUMIN 4.3 g/dL (3.5-5.0); ALBUMIN/GLOBULIN RATIO 1.1 (0.8-2.0); ANION GAP 16.6 mmol/L (8-16); CREATININE, SERUM 1.66 mg/dL (0.72-1.25); MAGNESIUM 1.8 MG/DL (1.3-2.1); POTASSIUM 3.6 mmol/L (3.5-5.1)
[2019-08-11 11:22] LABS: RBC,URINE >50 /HPF (0-5); WBC,URINE (MAN) 21-50 /HPF (0-5)
[2019-08-11 11:23] LABS: BACTERIA,URINE FEW /HPF; CREATINE KINASE MB 1.1 ng/mL (0-5.0); EPITHELIAL CELLS,URINE FEW /LPF
--- NOTE | 2019-08-11 11:35 | Diagnostic Imaging Report ---
EXAMINATION: CHEST SINGLE (NOT PORTABLE) INDICATION: Abdominal pain COMPARISON: None FINDINGS: LINES/TUBES:None LUNGS:The lungs are well-inflated. No focal consolidation or pulmonary edema. PLEURA:No pleural effusion or pneumothorax. MEDIASTINUM:The cardiomediastinal silhouette appears normal in size and shape. BONES/SOFT TISSUES:No acute osseous injury. ABDOMEN:No free air under the diaphragm. IMPRESSION: No focal pneumonia or pulmonary edema. Signed by: Kurt Welsh MD on 08/11/2019 11:32 AM
--- NOTE | 2019-08-11 11:44 | Emergency Department Note ---
History of Present Illnes History of Present Illness Chief Complaint: Genitourinary History of Present Illness This is a 54 year old male HERE FOR BURNING DURING URINATION AND BILATERAL BACK KIDNEY PAIN FOR THE LAST SEVERAL DAYS. Historian: Patient Arrival Mode: Car Japanese Professor Required: No Onset (how long ago): day(s) (3) Location: SUPRAPUBIC AREA AND BILAT FLANKS Quality: PAIN Radiation: non-radiation Severity: severe Onset quality: gradual Duration (how long): day(s) (3) Timing of current episode: constant Progression: waxing and waning Chronicity: new Context: recent illness Relieving factors: none Exacerbating factors: none Associated symptoms: denies other symptoms Treatments prior to arrival: none Past Medical/Family History Physician Review I have reviewed the patient's past medical and family history. Any updates have been documented here. Past Medical History Recent Fever: No Clinical Suspicion of Infectio: No New/Unexplained Change in Ment: No Past Medical History: Hypertension, Diabetes, Kidney Stones, GERD, Hyperlipedemia Other Medical History: acid reflux Past Surgical History: Cholecysctectomy, T&A, Knee Replacement, Back Surgery Other Surgery: shoulder surgery X2, C6-C7 fusion, herniated disk surgery - lumbar, nephrostomy tube 09/01/18, renal stents, lithotripsy Social History Smoking Cessation: Never Smoker Counseling Performed: No Alcohol Use: None Any Illegal Drug Use: No TB Exposure/Symptoms: No Physically hurt or threatened: No Other Last Tetanus: UTD Any Pre-Existing Lines (PICC,: No Is patient up to date on immun: No Last Flu: UTD Last Pneumovax: UTD Review of Systems Review of Systems Constitutional: no symptoms EENTM: no symptoms Cardiovascular: no symptoms Respiratory: no symptoms Gastrointestinal: abdominal pain Genitourinary: pain (SUPRAPUBIC AND BILAT FLANKS) Musculoskeletal: no symptoms Neurological: no symptoms Psychological: no symptoms Endocrine: no symptoms Hematological/Lymphatic: no symptoms Review of other systems All other systems reviewed and negative. Physical Exam Related Data Allergies: Coded Allergies: Penicillins (Verified Allergy, Mild, RASH, 04/09/12) Triage Vital Signs Vital Signs Date Time Temp Pulse Resp B/P (MAP) Pulse Ox O2 Delivery O2 Flow Rate FiO2 08/11/19 09:51 97.6 78 18 124/86 97 Vital signs reviewed: Yes Physical Exam CONSTITUTIONAL Constitutional: obese HENT HENT: normocephalic, atraumatic, oropharynx clear/moist, nose normal HENT L/R: left ext ear normal, right ext ear normal EYES Eyes: PERRL, conjunctivae normal NECK Neck: ROM normal PULMONARY Pulmonary: effort normal, breath sounds normal CARDIOVASCULAR Cardiovascular: regular rhythm, heart sounds normal, capillary refill normal, normal rate GASTROINTESTINAL Abdominal: soft, tender (MOD SUPRAPUBIC TENDERNESS); guarding, mass, rebound GENITOURINARY Genitourinary: exam deferred SKIN Skin: warm, dry MUSCULOSKELETAL Musculoskeletal: ROM normal NEUROLOGICAL Neurological: alert, oriented x 3, no gross motor or sensory deficits PSYCHOLOGICAL Psychological: mood/affect normal, judgement normal Results Laboratory Result Diagram: 08/11/1958 08/11/1958 Laboratory Laboratory Tests Test 08/11/19 09:58 White Blood Count 8.96 x10e3/uL (4.8-10.8) Red Blood Count 5.25 x10e6/uL (4.3-5.7) Hemoglobin 13.8 g/dL (14.0-18.0) Hematocrit 44.5 % (38.2-49.6) Mean Corpuscular Volume 84.8 fL (81-99) Mean Corpuscular Hemoglobin 26.3 pg (28-32) Mean Corpuscular Hemoglobin Concent 31.0 g/dL (31-35) Red Cell Distribution Width 15.2 % (11.7-14.4) Platelet Count 283 x10e3/uL (140-360) Neutrophils (%) (Auto) 65.7 % (38.7-80.0) Lymphocytes (%) (Auto) 22.0 % (18.0-39.1) Monocytes (%) (Auto) 8.1 % (4.4-11.3) Eosinophils (%) (Auto) 3.6 % (0.0-6.0) Basophils (%) (Auto) 0.3 % (0.0-1.0) Neutrophils # (Auto) 5.9 (2.1-6.9) Lymphocytes # (Auto) 2.0 (1.0-3.2) Monocytes # (Auto) 0.7 (0.2-0.8) Eosinophils # (Auto) 0.3 (0.0-0.4) Basophils # (Auto) 0.0 (0.0-0.1) Absolute Immature Granulocyte (auto 0.03 x10e3/uL (0-0.1) Prothrombin Time 12.2 seconds (11.9-14.5) Prothromb Time International Ratio 0.86 Activated Partial Thromboplast Time 31.2 seconds (23.8-35.5) Urine Color Yellow (YELLOW) Urine Clarity Cloudy (CLEAR) Urine pH 5.5 (5 - 7) Urine Specific Gentry 1.020 (1.010-1.025) Urine Protein 2+ (NEGATIVE) Urine Glucose (UA) 2+ (NEGATIVE) Urine Ketones Negative (NEGATIVE) Urine Blood Moderate (NEGATIVE) Urine Nitrite Negative (NEGATIVE) Urine Bilirubin Negative (NEGATIVE) Urine Urobilinogen 0.2 mg/dL (0.2 - 1) Urine Leukocyte Esterase Moderate (NEGATIVE) Urine RBC >50 /HPF (0-5) Urine WBC 21-50 /HPF (0-5) Urine Epithelial Cells Few /LPF (NONE) Urine Bacteria Few /HPF (NONE) Sodium Level 142 mmol/L (136-145) Potassium Level 3.6 mmol/L (3.5-5.1) Chloride Level 105 mmol/L (98-107) Carbon Dioxide Level 24 mmol/L (22-29) Anion Gap 16.6 mmol/L (8-16) Blood Urea Nitrogen 19 mg/dL (7-26) Creatinine 1.66 mg/dL (0.72-1.25) Estimat Glomerular Filtration Rate 43 ML/MIN (60-) BUN/Creatinine Ratio 11 (6-25) Glucose Level 140 mg/dL (74-118) Calcium Level 10.0 mg/dL (8.4-10.2) Magnesium Level 1.8 MG/DL (1.3-2.1) Total Bilirubin 0.9 mg/dL (0.2-1.2) Aspartate Amino Transf (AST/SGOT) 18 IU/L (5-34) Alanine Aminotransferase (ALT/SGPT) 19 IU/L (0-55) Alkaline Phosphatase 94 IU/L (40-150) Creatine Kinase 99 IU/L (30-200) Creatine Kinase MB 1.10 ng/mL (0-5.0) Troponin I 0.008 ng/mL (0-0.300) B-Type Natriuretic Peptide 13.1 pg/mL (0-100) Total Protein 8.2 g/dL (6.5-8.1) Albumin 4.3 g/dL (3.5-5.0) Globulin 3.9 g/dL (2.3-3.5) Albumin/Globulin Ratio 1.1 (0.8-2.0) Lipase 54 U/L (8-78) Laboratory Tests Test 08/11/19 09:58 White Blood Count 8.96 x10e3/uL (4.8-10.8) Red Blood Count 5.25 x10e6/uL (4.3-5.7) Hemoglobin 13.8 g/dL (14.0-18.0) Hematocrit 44.5 % (38.2-49.6) Mean Corpuscular Volume 84.8 fL (81-99) Mean Corpuscular Hemoglobin 26.3 pg (28-32) Mean Corpuscular Hemoglobin Concent 31.0 g/dL (31-35) Red Cell Distribution Width 15.2 % (11.7-14.4) Platelet Count 283 x10e3/uL (140-360) Neutrophils (%) (Auto) 65.7 % (38.7-80.0) Lymphocytes (%) (Auto) 22.0 % (18.0-39.1) Monocytes (%) (Auto) 8.1 % (4.4-11.3) Eosinophils (%) (Auto) 3.6 % (0.0-6.0) Basophils (%) (Auto) 0.3 % (0.0-1.0) Neutrophils # (Auto) 5.9 (2.1-6.9) Lymphocytes # (Auto) 2.0 (1.0-3.2) Monocytes # (Auto) 0.7 (0.2-0.8) Eosinophils # (Auto) 0.3 (0.0-0.4) Basophils # (Auto) 0.0 (0.0-0.1) Absolute Immature Granulocyte (auto 0.03 x10e3/uL (0-0.1) Prothrombin Time 12.2 seconds (11.9-14.5) Prothromb Time International Ratio 0.86 Activated Partial Thromboplast Time 31.2 seconds (23.8-35.5) Urine Color Yellow (YELLOW) Urine Clarity Cloudy (CLEAR) Urine pH 5.5 (5 - 7) Urine Specific Gentry 1.020 (1.010-1.025) Urine Protein 2+ (NEGATIVE) Urine Glucose (UA) 2+ (NEGATIVE) Urine Ketones Negative (NEGATIVE) Urine Blood Moderate (NEGATIVE) Urine Nitrite Negative (NEGATIVE) Urine Bilirubin Negative (NEGATIVE) Urine Urobilinogen 0.2 mg/dL (0.2 - 1) Urine Leukocyte Esterase Moderate (NEGATIVE) Urine RBC >50 /HPF (0-5) Urine WBC 21-50 /HPF (0-5) Urine Epithelial Cells Few /LPF (NONE) Urine Bacteria Few /HPF (NONE) Sodium Level 142 mmol/L (136-145) Potassium Level 3.6 mmol/L (3.5-5.1) Chloride Level 105 mmol/L (98-107) Carbon Dioxide Level 24 mmol/L (22-29) Anion Gap 16.6 mmol/L (8-16) Blood Urea Nitrogen 19 mg/dL (7-26) Creatinine 1.66 mg/dL (0.72-1.25) Estimat Glomerular Filtration Rate 43 ML/MIN (60-) BUN/Creatinine Ratio 11 (6-25) Glucose Level 140 mg/dL (74-118) Calcium Level 10.0 mg/dL (8.4-10.2) Magnesium Level 1.8 MG/DL (1.3-2.1) Total Bilirubin 0.9 mg/dL (0.2-1.2) Aspartate Amino Transf (AST/SGOT) 18 IU/L (5-34) Alanine Aminotransferase (ALT/SGPT) 19 IU/L (0-55) Alkaline Phosphatase 94 IU/L (40-150) Creatine Kinase 99 IU/L (30-200) Creatine Kinase MB 1.10 ng/mL (0-5.0) Troponin I 0.008 ng/mL (0-0.300) B-Type Natriuretic Peptide 13.1 pg/mL (0-100) Total Protein 8.2 g/dL (6.5-8.1) Albumin 4.3 g/dL (3.5-5.0) Globulin 3.9 g/dL (2.3-3.5) Albumin/Globulin Ratio 1.1 (0.8-2.0) Lipase 54 U/L (8-78) Lab results reviewed: Yes Imaging Imaging results reviewed: Yes Impressions EXAMINATION: CHEST SINGLE (NOT PORTABLE) INDICATION: Abdominal pain COMPARISON: None FINDINGS: LINES/TUBES:None LUNGS:The lungs are well-inflated. No focal consolidation or pulmonary edema. PLEURA:No pleural effusion or pneumothorax. MEDIASTINUM:The cardiomediastinal silhouette appears normal in size and shape. BONES/SOFT TISSUES:No acute osseous injury. ABDOMEN:No free air under the diaphragm. IMPRESSION: No focal pneumonia or pulmonary edema. Signed by: Kurt Welsh MD on 08/11/2019 11:32 AM EXAM: CT Abdomen and Pelvis WITHOUT intravenous contrast INDICATION: Abdominal pain, flank pain COMPARISON: CT abdomen and pelvis of 04/01/2019 TECHNIQUE: Abdomen and pelvis were scanned utilizing a multidetector helical scanner from the lung base to the pubic symphysis without administration of IV contrast. Coronal and sagittal reformations were obtained. IV CONTRAST: None ORAL CONTRAST: None COMPLICATIONS: None RADIATION DOSE: Total DLP: 1500 mGy*cm Dose modulation, iterative reconstruction, and/or weight based adjustment of the mA/kV was utilized to reduce the radiation dose to as low as reasonably achievable. FINDINGS: LOWER THORAX: Normal. HEPATOBILIARY: No focal liver lesion. Status post cholecystectomy. SPLEEN: No splenomegaly. PANCREAS: No focal masses or ductal dilatation. ADRENALS: No adrenal nodules. KIDNEYS/URETERS: Multiple left lower pole nonobstructive renal calculi measure up to 8 mm. Right lower pole nonobstructive renal calculus measures up to 8 mm. No hydronephrosis or hydroureter. The previously seen left mid ureteral calculus is no longer visualized. PELVIC ORGANS/BLADDER: Unremarkable. PERITONEUM / RETROPERITONEUM: No free air or fluid. LYMPH NODES: No lymphadenopathy. VESSELS: Minimal scattered atherosclerotic calcifications of the nonaneurysmal abdominal aorta. GI TRACT: No abnormal bowel thickening. No bowel obstruction. Normal appendix. BONES AND SOFT TISSUES: No acute osseous injury. No suspicious lytic or blastic lesions. Degenerative changes of the visualized spine, most notably at L3-4. IMPRESSION: Bilateral nonobstructive renal calculi as above. No hydronephrosis or hydroureter. Previously seen left mid ureteral calculus is no longer visualized. Signed by: Kurt Welsh MD on 08/11/2019 11:52 AM Diagnostics Tests Diagnostic test(s) reviewed: Yes Critical Care Time Subsequent provider I assumed direction of critical care for this patient from another provider of my specialty. Assessment & Plan Reassessment Reassessment CHECK CBC, CHEM'S, LIPASE, CARDIAC MARKERS, ECG, UA/CX, CXR, CT ABD PELVIS - R/O URETEROLITHIASIS, UTI/PYELO, STEMI/NSTEMI, BOWEL OBSTRUCTION CHART REVIEW - LAST URINE CX HE GREW ENTEROCOCCUS SENS TO CIPRO (NITHYA<1) Assessment & Plan Final Impression: (1) URINARY TRACT INFECTION, SITE NOT SPECIFIED Assessment & Plan DC HOME, CIPRO 500 MG PO BID X 10 DAYS, F/U PCP AND DR COX, RTED SX'S WORSEN/FEVER/ETC Depart Disposition: HOME, SELF-CARE Last Vital Signs Date Time Temp Pulse Resp B/P (MAP) Pulse Ox O2 Delivery O2 Flow Rate FiO2 08/11/19 09:51 97.6 78 18 124/86 97 Home Meds Active Scripts Ondansetron Hcl* (ZOFRAN*) 4 Mg Tablet, 4 MG SL Q6H PRN for NAUSEA, #14 TAB 0 Refills Prov:RAMAN THAKKAR L TRACK SUPERINTENDENT 04/01/19 Levofloxacin (LEVAQUIN) 750 Mg Tablet, 750 MG PO DAILY for 7 Days, #7 TAB Prov:AYLEEN THAKKARO L TRACK SUPERINTENDENT 04/01/19 Tamsulosin Hcl* (FLOMAX*) 0.4 Mg Cap, 0.4 MG PO DAILY, #10 CAP 0 Refills Prov:AYLEEN THAKKARO L TRACK SUPERINTENDENT 04/01/19 Acetaminophen With Codeine (TYLENOL WITH CODEINE #3 TABLET) 1 Each Tablet, 300 MG PO Q4H for pain, #20 TAB Prov:RAMAN THAKKAR L TRACK SUPERINTENDENT 04/01/19 Reported Medications Acetaminophen With Codeine (TYLENOL WITH CODEINE #3 TABLET) 1 Each Tablet, 300 MG PO PRN for Mild Pain (1-3) or Fever>100.8, TAB 02/18/19 Meclizine Hcl (MECLIZINE HCL) 25 Mg Tablet, 25 MG PO PRN 02/16/19 [Amlodipine/Valsartan] No Conflict Check, 5-320 MG PO DAILY 02/16/19 Metformin Hcl (METFORMIN HCL ER) 500 Mg Tab.er.24, 1 TAB PO HS, #60 TAB 09/17/18 Triamterene/Hydrochlorothiazid (TRIAMTERENE-HCTZ 37.5-25 MG CP) 1 Each Capsule, 37.5 MG PO DAILY 09/01/18 [Farxiga] MG No Conflict Check, 10 MG PO DAILY 09/01/18 Pantoprazole Sodium* (PROTONIX) 40 Mg Tablet.dr, 40 MG PO DAILY, TAB 08/18/18 Gluc 2KCL/Chondr/Darrel Hy/Hy Ac (GLUCOSAMINE & CHONDROITIN CAP) 1 Each Capsule 01/05/18 Vitamin B Complex & Vit C No.4 (SUPER B COMPLEX) 150 Mg Tablet 01/05/18 Nebivolol Hcl (BYSTOLIC) 10 Mg Tablet, 20 MG PO DAILY 05/04/12 Atorvastatin Calcium (LIPITOR) 20 Mg Tablet, 20 MG PO DAILY 05/04/12 Meloxicam (MELOXICAM) 15 Mg Tablet, 15 MG PO DAILY 05/04/12 Medications in the ED Morphine Sulfate 4 mg ONCE STAT IV Last administered on 08/11/19at 11:29; Admin Dose 4 MG; Start 08/11/19 at 10:16; Stop 08/11/19 at 10:17; Status DC Ondansetron HCl 4 mg ONCE STAT IV Last administered on 08/11/19at 11:29; Admin Dose 4 MG; Start 08/11/19 at 10:02; Stop 08/11/19 at 10:18; Status DC Sodium Chloride 1,000 ml @ 0 mls/hr Q0M STAT IV Last administered on 08/11/19at 11:28; Admin Dose 999 MLS/HR; Start 08/11/19 at 10:02; Stop 08/11/19 at 10:04; Status DC NATHAN SALDAÑA MD Aug 11, 2019 11:44
[2019-08-11] MEDS ORDERED: CEFTRIAXONE SOD 1 GM/NS 50 ML 50 ML IV ONE (11:45)
[2019-08-11] MEDS ORDERED: VANCOMYCIN 1GM/NS 250 ML 250 ML IV ONE (11:45)
--- NOTE | 2019-08-11 11:55 | Diagnostic Imaging Report ---
EXAM: CT Abdomen and Pelvis WITHOUT intravenous contrast INDICATION: Abdominal pain, flank pain COMPARISON: CT abdomen and pelvis of 04/01/2019 TECHNIQUE: Abdomen and pelvis were scanned utilizing a multidetector helical scanner from the lung base to the pubic symphysis without administration of IV contrast. Coronal and sagittal reformations were obtained. IV CONTRAST: None ORAL CONTRAST: None COMPLICATIONS: None RADIATION DOSE: Total DLP: 1500 mGy*cm Dose modulation, iterative reconstruction, and/or weight based adjustment of the mA/kV was utilized to reduce the radiation dose to as low as reasonably achievable. FINDINGS: LOWER THORAX: Normal. HEPATOBILIARY: No focal liver lesion. Status post cholecystectomy. SPLEEN: No splenomegaly. PANCREAS: No focal masses or ductal dilatation. ADRENALS: No adrenal nodules. KIDNEYS/URETERS: Multiple left lower pole nonobstructive renal calculi measure up to 8 mm. Right lower pole nonobstructive renal calculus measures up to 8 mm. No hydronephrosis or hydroureter. The previously seen left mid ureteral calculus is no longer visualized. PELVIC ORGANS/BLADDER: Unremarkable. PERITONEUM / RETROPERITONEUM: No free air or fluid. LYMPH NODES: No lymphadenopathy. VESSELS: Minimal scattered atherosclerotic calcifications of the nonaneurysmal abdominal aorta. GI TRACT: No abnormal bowel thickening. No bowel obstruction. Normal appendix. BONES AND SOFT TISSUES: No acute osseous injury. No suspicious lytic or blastic lesions. Degenerative changes of the visualized spine, most notably at L3-4. IMPRESSION: Bilateral nonobstructive renal calculi as above. No hydronephrosis or hydroureter. Previously seen left mid ureteral calculus is no longer visualized. Signed by: Kurt Welsh MD on 08/11/2019 11:52 AM
== END 2019-08-11 14:20 | disposition home or self-care (01) ==
LOC: ER 09:32
DX: R30.0 Dysuria (principal); M54.5 Low back pain; R10.30 Lower abdominal pain, unspecified; N39.0 Urinary tract infection, site not specified; N20.0 Calculus of kidney; I10 Essential (primary) hypertension; E11.9 Type 2 diabetes mellitus without complications; E78.5 Hyperlipidemia, unspecified; K21.9 Gastro-esophageal reflux disease without esophagitis
CPT/HCPCS: 36415; 71045; 74176; 80053; 81001; 82550; 82553; 83690; 83735; 83880; 84484; 85025; 85610; 85730; 87040; 87086; 99284; J0696; J2270; J2405; J3370; J7030

== ENCOUNTER 2019-11-02 19:05 | Emergency (ER) | payer BC ==
[~2019-11-02] VITALS: Ht 180.3 cm; Wt 170.1 kg
[2019-11-02] MEDS ORDERED: SODIUM CHLORIDE 0.9% 1000ML 1,000 ML IV STA (19:55)
[2019-11-02] MEDS ORDERED: KETOROLAC TROMETHAMINE 30 MG/ML VIAL IV STA (19:59)
[2019-11-02] MEDS ORDERED: CEFTRIAXONE SOD 1 GM/NS 50 ML 50 ML IV ONE ×2 (20:00)
[2019-11-02] MEDS ORDERED: KETOROLAC TROMETHAMINE 30 MG/ML VIAL ONE (20:10)
[2019-11-02] MEDS ORDERED: SODIUM CHLORIDE 0.9% 1000ML 1,000 ML ONE (20:10)
[2019-11-02] MEDS ORDERED: CEFTRIAXONE SOD 1 GM VIAL ONE (20:10)
--- NOTE | 2019-11-02 20:13 | Emergency Department Note ---
History of Present Illnes History of Present Illness Chief Complaint: fever 102 History of Present Illness This is a 54 year old male . 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: No Onset (how long ago): hour(s) Location: n/a Quality: n/a Radiation: Reports non-radiation Severity: moderate Onset quality: gradual Duration (how long): hour(s) (2) Timing of current episode: constant Progression: partially resolved Chronicity: new Context: Denies recent illness, Denies recent surgery, Denies recent immobilization, Denies recent travel, Denies trauma/injury, Denies new medications, Denies hx of DVT/PE Relieving factors: none Exacerbating factors: none Associated symptoms: Reports fever/chills, Reports other (+left lbp) Treatments prior to arrival: none Past Medical/Family History Physician Review I have reviewed the patient's past medical and family history. Any updates have been documented here. Past Medical History Recent Fever: No Clinical Suspicion of Infectio: No New/Unexplained Change in Ment: No Past Medical History: Hypertension, Diabetes, Kidney Stones, GERD, Hyperlip edemia Other Medical History: acid reflux Past Surgical History: Cholecysctectomy, T&A, Knee Replacement, Back Surgery Other Surgery: shoulder surgery X2, C6-C7 fusion, herniated disk surgery - lumbar, nephrostomy tube 09/01/18, renal stents, lithotripsy Social History Smoking Cessation: Never Smoker Counseling Performed: No Any Illegal Drug Use: No TB Exposure/Symptoms: No Physically hurt or threatened: No Family History Family history of heart diseas: No Other Last Tetanus: UTD Any Pre-Existing Lines (PICC,: No Is patient up to date on immun: No Review of Systems Review of Systems Constitutional: Reports no symptoms EENTM: Reports no symptoms Cardiovascular: Reports no symptoms Respiratory: Reports no symptoms Gastrointestinal: Reports no symptoms Genitourinary: Reports as per HPI Musculoskeletal: Reports as per HPI, Reports back pain Integumentary: Reports no symptoms Neurological: Reports no symptoms Psychological: Reports no symptoms Endocrine: Reports no symptoms Hematological/Lymphatic: Reports no symptoms Review of other systems: All other systems negative Physical Exam Related Data Allergies: Coded Allergies: Penicillins (Verified Allergy, Mild, RASH, 04/09/12) Vital signs reviewed: Yes Physical Exam CONSTITUTIONAL Constitutional: Present well-developed, Present well-nourished HENT HENT: Present normocephalic, Present atraumatic, Present oropharynx clear/seamus st, Present nose normal HENT L/R: Present left ext ear normal, Present right ext ear normal EYES Eyes: Reports PERRL, Reports conjunctivae normal NECK Neck: Present ROM normal, Present supple PULMONARY Pulmonary: Present effort normal, Present breath sounds normal CARDIOVASCULAR Cardiovascular: Present regular rhythm, Present heart sounds normal, Present capillary refill normal, Present normal rate GASTROINTESTINAL Abdominal: Present soft, Present nontender, Present bowel sounds normal GENITOURINARY Genitourinary: Present exam deferred SKIN Skin: Present warm, Present dry MUSCULOSKELETAL Musculoskeletal: Present ROM normal, Present tenderness (left cva tenderness) NEUROLOGICAL Neurological: Present alert, Present oriented x 3, Present no gross motor or sensory deficits PSYCHOLOGICAL Psychological: Present mood/affect normal, Present judgement normal Results Laboratory Lab results reviewed: Yes Laboratory comments cbc normal except wbc=11.8, bmp normal except glu= 190, bun=25 cr 2.2, ua= +leuk Imaging Imaging results reviewed: Yes (cxr wnl) Assessment & Plan Medical Decision Making MDM see below Assessment & Plan Final Impression: (1) Acute pyelonephritis (2) Dehydration (3) CRF (chronic renal failure) (4) Hyperglycemia (5) Diabetes mellitus Depart Disposition: HOME, SELF-residential Meds Active Scripts Ciprofloxacin Hcl (CIPRO) 500 Mg Tablet, 500 MG PO Q12H, #28 TAB Prov:CHRYSTAL BOCANEGRA 11/02/19 Ondansetron Hcl* (ZOFRAN*) 4 Mg Tablet, 4 MG SL Q6H PRN for NAUSEA, #14 TAB 0 Refills Prov:THAKKAR,RAMAN L COUTIERIER 04/01/19 Levofloxacin (LEVAQUIN) 750 Mg Tablet, 750 MG PO DAILY for 7 Days, #7 TAB Prov:THAKKAR,RAMAN L COUTIERIER 04/01/19 Tamsulosin Hcl* (FLOMAX*) 0.4 Mg Cap, 0.4 MG PO DAILY, #10 CAP 0 Refills Prov:THAKKAR,RAMAN L COUTIERIER 04/01/19 Acetaminophen With Codeine (TYLENOL WITH CODEINE #3 TABLET) 1 Each Tablet, 300 MG PO Q4H for pain, #20 TAB Prov:THAKKAR,RAMAN L COUTIERIER 04/01/19 Reported Medications Acetaminophen With Codeine (TYLENOL WITH CODEINE #3 TABLET) 1 Each Tablet, 300 MG PO PRN for Mild Pain (1-3) or Fever>100.8, TAB 02/18/19 Meclizine Hcl (MECLIZINE HCL) 25 Mg Tablet, 25 MG PO PRN 02/16/19 [Amlodipine/Valsartan] No Conflict Check, 5-320 MG PO DAILY 02/16/19 Metformin Hcl (METFORMIN HCL ER) 500 Mg Tab.er.24, 1 TAB PO HS, #60 TAB 09/17/18 Triamterene/Hydrochlorothiazid (TRIAMTERENE-HCTZ 37.5-25 MG CP) 1 Each Capsule, 37.5 MG PO DAILY 09/01/18 [Farxiga] MG No Conflict Check, 10 MG PO DAILY 09/01/18 Pantoprazole Sodium* (PROTONIX) 40 Mg Tablet.dr, 40 MG PO DAILY, TAB 08/18/18 Gluc 2KCL/Chondr/Darrel Hy/Hy Ac (GLUCOSAMINE & CHONDROITIN CAP) 1 Each Capsule 01/05/18 Vitamin B Complex & Vit C No.4 (SUPER B COMPLEX) 150 Mg Tablet 01/05/18 Nebivolol Hcl (BYSTOLIC) 10 Mg Tablet, 20 MG PO DAILY 05/04/12 Atorvastatin Calcium (LIPITOR) 20 Mg Tablet, 20 MG PO DAILY 05/04/12 Meloxicam (MELOXICAM) 15 Mg Tablet, 15 MG PO DAILY 05/04/12 Medications in the ED Ceftriaxone Sodium 50 ml @ 100 mls/hr ONCE ONCE IV ; Start 11/02/19 at 20:00; Stop 11/02/19 at 20:29; Status UNV Ceftriaxone Sodium 50 ml @ 100 mls/hr ONCE ONCE IV ; Start 11/02/19 at 20:00; Stop 11/02/19 at 20:29; Status UNV Sodium Chloride 1,000 ml @ 1,000 mls/hr Q1H STAT IV ; Start 11/02/19 at 19:55; Stop 11/02/19 at 20:54 Ketorolac Tromethamine 30 mg ONCE STAT IV ; Start 11/02/19 at 19:59; Stop 11/02/19 at 20:00; Status UNV CHRYSTAL BOCANEGRA Nov 02, 2019 20:13
--- NOTE | 2019-11-02 21:03 | Diagnostic Imaging Report ---
EXAMINATION: CXR 2 VIEW - HOPD INDICATION: Fever. COMPARISON: None FINDINGS: TUBES and LINES: None. LUNGS: Normal lung volumes. Lungs are clear. No consolidations. PLEURA: No pleural effusion or pneumothorax. HEART AND MEDIASTINUM: The cardiomediastinal silhouette is unremarkable. BONES AND SOFT TISSUES: No acute osseous lesion. Soft tissues are unremarkable. UPPER ABDOMEN: No free air under the diaphragm. IMPRESSION: No acute thoracic radiographic abnormality. Signed by: Clayton Tai MD on 11/02/2019 9:00 PM
[2019-11-02] MEDS ORDERED: CIPRO500 MG PO (21:13)
--- OUTSIDE RECORDS SUMMARY | 2019-11-02 22:24 | XMS REPORT | Clinical Summary ---
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 ([id number] LUR AC ORAL) Active Problems Problem Noted Date Calculus of kidney 10/14/2018 Family History Medical History Relation Name Comments [...] travel history available. Last Filed Vital Signs Not on file Plan of Treatment Health Maintenance Due Date Last Done Comments DIABETIC RETINAL EYE EXAM 1963 DIABETIC FOOT EXAM 1973 URINE MICROALBUMIN 1973 COLONOSCOPY SCREENING 2013 SHINGLES VACCINES (#1) 2013 INFLUENZA VACCINE 12/09/2019 Results Not on fileafter 11/01/2018 Insurance Type Payer Benefit Subscriber ID Effective Phone Address Plan / Dates Group PPO BCBS BCBS OUT xxxxxxxxxxxxxxx 2018- OF STATE Present [id number] Advance Directives For more information, please contact: [phone] Patient Heel Cover Splitter Explanation Type Date Recorded Advance Directives, Living Will and Medical Power of Data Collection Interviewer
--- OUTSIDE RECORDS SUMMARY | 2019-11-02 22:24 | XMS REPORT | Continuity of Care Document ---
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 Name Role Phone [employer] [employer] [facility] Unavailable Un available Problems Problem Status Onset Date Classification Date Reported Comments Source Superior glenoid labrum lesion of right shoulder, initial encounter 03/25/2018 10/06/2018 [facility] UNK Active 1 05/05/2017 [facility] Impingement syndrome of right shoulder 02/21/2018 09/02/2018 [facility] RT SHOULDER Active 10/08/2017 [facility] [place] 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 H Active 05/31/2015 [facility] [place] ICD NOT GIVEN / CPT 75375 29726 50445 Active 12/04/2012 [facility] STONE 592.0 592.1/CPT 05282 44007 Active 12/03/2012 [facility] Incomplete rotator cuff tear or rupture of right shoulder, not specified as traumatic 09/02/2018 [facility] [place] Bicipital tendinitis, right shoulder 09/02/2018 [facility] [place] Effusion, left knee 09/02/2018 [facility] [place] Pain in left knee 09/02/2018 [facility] [place] Acid reflux Active Problem 12/18/2012 [facility] Back pain Active Problem 12/18/2012 1lumbar [facility] Chest pain Resolved Problem 12/18/2012 27/13 Dx as acid reflux [facility] Foot swelling Active Problem 12/18/2012 [facility] GERD - Gastro-esophageal reflux disease Active Problem 12/18/2012 [facility] HTN - Hypertension Active Problem 12/18/2012 [facility] Obese Active Problem 12/18/2012 [facility] Poor peripheral circulation Re solved Problem 01/2013 3swelling to LE [facility] Renal stone Active Problem 12/18/2012 [facility] Retained ureteral stent Active Problem 12/18/2012 4left [facility] Sleep apnea Active Problem 12/18/2012 5uses CPAP [facility] Strain of muscle, fascia and tendon of l jigna head of biceps, right arm, initial encounter 10/06/2018 [facility] Other synovitis and tenosynovitis, right shoulder 10/06/2018 [facility] Loose body in right shoulder 10/06/2018 [facility] Primary osteoarthritis, right shoulder 10/06/2018 [facility] Morbid (severe) obesity due to excess calories 10/06/2018 [facility] Body mass index (BMI) 50-59.9 , adult 10/06/2018 [facility] Essential (primary) hypertension 10/06/2018 [facility] Gastro-esophageal reflux disease without esophagitis 10/06/2018 [facility] Type 2 diabetes mellitus without complications 10/06/2018 [facility] custodial (current) use of aspirin 10/06/2018 [facility] 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 10/06/2018 [facility] Gastroesophageal reflux disease (disorder) Active Problem 10/06/2018 [facility] [place] [place] Backache (finding) Resolved Problem 10/06/2018 lumbar [facility] [place] [place] Chest pain (finding) Resolved Problem 10/06/2018 7/13 Dx as acid reflux [facility] [place] [place] Diabetes mellitus (disorder) A ctive [facility] [place] Foot swelling (finding) Active Problem 10/06/2018 [facility] R[facility] [place] [place] Hypertensive disorder, systemic arterial (disorder) Active Problem 10/06/2018 [facility] [place] [place] Injury of superior glenoid labrum of sriram ulder joint (disorder) Active Prob hiral 10/06/2018 [facility] [place] Obese (finding) Active Problem 10/06/2018 [facility] R[facility] [place] [place] Poor peripheral circulation (disorder) Resolved Problem 10/06/2018 swelling to LE [facility] [place] [place] Kidney stone (disorder) Resolv ed Problem [facility] R[facility] [place] [place] Retained ureteric stent (disorder) Resolved Problem left [facility], [facility] [place] [place] [place] Sleep apnea (finding) Active Problem 10/06/2018 uses CPAP [facility], O [facility] [place] [place] [place] Medications Medication Details Route Status Patient Instructions Ordering Provider Order Date Source Ketorolac 15 mg, Route: IVP, Q 6H, Dosing Weight 175, kg, Start date: 03/19/18 12:00:00 HOME APPLIANCE TECH, Duration: 6 doses or times, Stop date: 03/20/18 18:00:00 HOME APPLIANCE TECH Inactive 03/19/2018 [facility] Phenergan 25 mg, Route: IVPB, Q4H, Dosing Weight 175, kg, PRN Nausea & Vomiting, Start date: 03/19/18 10:02:00 HOME APPLIANCE TECH, Duration: 30 day, Stop date: 04/18/18 10:01:00 HOME APPLIANCE TECH Inactive 03/19/2018 [facility] Zofran 4 mg, Route: IV, Drug f orm: INJ, Q4H, Dosing Weight 175, kg, PRN Nausea, Start date: 03/19/18 10:02:00 HOME APPLIANCE TECH, Duration: 30 day, Stop date: 04/18/18 10:01:00 HOME APPLIANCE TECH Inactive 03/19/2018 [facility] Morphine 2 mg, Route: IVP, Q3H , Dosing Weight 175, kg, PRN Pain Score 1-3, Start date: 03/19/18 10:02:00 HOME APPLIANCE TECH, Duration: 30 day, Stop date: 04/18/18 10:01:00 HOME APPLIANCE TECH Inactive 03/19/2018 [facility] Tramadol 50 mg, Route: PO, Donovan g form: TAB, Q6H, Dosing Weight 175, kg, PRN Pain Score 1-3, Start date: 03/19/18 10:02:00 HOME APPLIANCE TECH, Duration: 30 day, Stop date: 04/18/18 10:01:00 HOME APPLIANCE TECH Inactive 03/19/2018 [facility] Hydromorphone 0.3 mg, 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, Q3H, Dosing Weight 175, kg, PRN Pain Score 4-6, Start date: 03/19/18 10:02:00 HOME APPLIANCE TECH, Duration: 30 day, Stop date: 04/18/18 10:01:00 HOME APPLIANCE TECH Inactive 03/19/2018 [facility] Acetaminophen 325 MG / Hydrocodone Deangleo trate 5 MG Oral Tablet Route: PO, Dosing Weight 175, kg, Q4H, P RN Pain Score 4-6, Start date: 03/19/18 10:02:00 HOME APPLIANCE TECH, Duration: 30 day, Stop date: 04/18/18 10:01:00 HOME APPLIANCE TECH Inactive 03/19/2018 [facility] ceFAZolin (ANES) Route: IV, Dr ug form: INJ, ONCE, Stop date: 03/19/18 8:57:00 HOME APPLIANCE TECH Inactive 03/19/2018 [facility] neostigmine (ANES) Route: IV, Drug form: INJ, ONCE, Stop date: 03/19/18 8:57:00 HOME APPLIANCE TECH Inactive 03/19/2018 [facility] glycopyrrolate (ANES) Route: I V, Drug form: INJ, ONCE, Stop date: 03/19/18 8:57:00 HOME APPLIANCE TECH Inactive 03/19/2018 [facility] propofol (ANES) Route: IV, Donovan g form: INJ, ONCE, Stop date: 03/19/18 8:57:00 HOME APPLIANCE TECH Inactive 03/19/2018 [facility] rocuronium (ANES) Route: IV, D rug form: INJ, ONCE, Stop date: 03/19/18 8:57:00 HOME APPLIANCE TECH Inactive 03/19/2018 [facility] famotidine (ANES) Route: IV, D rug form: INJ, ONCE, Stop date: 03/19/18 8:57:00 HOME APPLIANCE TECH Inactive 03/19/2018 [facility] acetaminophen (ANES) Route: IV , Drug form: INJ, ONCE, Stop date: 03/19/18 8:57:00 HOME APPLIANCE TECH Inactive 03/19/2018 [facility] metoclopramide (ANES) Route: I V, Drug form: INJ, ONCE, Stop date: 03/19/18 8:57:00 HOME APPLIANCE TECH Inactive 03/19/2018 [facility] ondansetron (ANES) Route: IV, Drug form: INJ, ONCE, Stop date: 03/19/18 8:57:00 HOME APPLIANCE TECH Inactive 03/19/2018 [facility] vancomycin (ANES) Route: IV, D rug form: INJ, ONCE, Stop date: 03/19/18 8:57:00 HOME APPLIANCE TECH Inactive 03/19/2018 [facility] lidocaine (ANES) Route: IV, Dr ug form: INJ, ONCE, Stop date: 03/19/18 8:57:00 HOME APPLIANCE TECH Inactive 03/19/2018 [facility] Naloxone 0.04 mg, Route: IVP, Q2MIN, Dosing Weight 175, kg, PRN Narcotic Reversal, Start date: 03/19/18 8:33:00 HOME APPLIANCE TECH, Duration: 30 day, Stop date: 04/18/18 8:32:00 HOME APPLIANCE TECH Inactive 03/19/2018 [facility] Lactated Ringers IV 1000 mL 1, 000 mL, Rate: 100 ml/hr, Infuse over: 10 hr, Route: IV, Dosing Weight 175 kg, Total Volume: 1,000, Start date: 03/19/18 8:33:00 HOME APPLIANCE TECH, Duration: 30 day, Stop date: 04/18/18 8:32:00 HOME APPLIANCE TECH, 3.03, m2 Inactive 03/19/2018 [facility] Lactated Ringers Injection IV (ANES) 1000 mL Route: IV, Total Volume: 1,000, Start date: 03/19/18 7:53:00 HOME APPLIANCE TECH, Stop date: 03/19/18 8:53:00 HOME APPLIANCE TECH Inactive 03/19/2018 [facility] Calcium Chloride 0.0014 MEQ/ML / Potassi um Chloride 0.004 MEQ/ML / Sodium Chloride 0.103 MEQ/ML / Sodium Lactate 0.028 MEQ/ML Injectable Solution 1,000 mL, Rate: 25 ml/hr, Infuse over: 4 0 hr, Route: IV, Dosing Weight 175 kg, Total Volume: 1,000, Start date: 03/19/18 6:56:00 HOME APPLIANCE TECH, Duration: 30 day, Stop date: 04/18/18 6:55:00 HOME APPLIANCE TECH, 3.03, m2 Inactive 03/19/2018 [facility] clindamycin 300 mg oral capsule 300 mg = 1 cap, PO, TID, X 15 day, # 45 cap, 0 Refill(s) No Longer Active 03/19/2018 [facility] meclizine 25 mg oral tablet 25 mg = 1 tab, PO, PRN, 0 Refill(s) Active 03/13/2018 [facility] Metformin hydrochloride 500 MG Oral Tablet 500 mg = 1 tab, PO, Bedtime, 0 Refill(s) Active 03/13/2018 [facility] pantoprazole 40 mg oral enteric coated tablet 40 mg = 1 tab, PO, Daily, 0 Refill(s) Active 03/13/2018 [facility] Amlodipine 5 MG / valsartan 320 MG Oral Tablet 1 tab, PO, Daily, # 30 tab, 0 Refill(s) Active 03/13/2018 [facility] Glucosamine Chondroitin PO, Da melly, 0 Refill(s) Active 03/13/2018 [facility] Super B Complex oral tablet PO , Daily, 0 Refill(s) Active 03/13/2018 [facility] dapagliflozin propanediol 10 MG Oral Tablet [Stefanxiga] 10 mg = 1 tab, PO, Daily, 0 Refill(s) Active 03/13/2018 [facility] ketorolac 15 mg, 1 mL, Route: IVP, Drug form: INJ, Q6H, Dosing Weight 193.182, kg, Start date: 12/11/12 18:00:00, Duration: 6 doses or times, Stop date: 12/13/12 0:00:00 IVP No Longer Active Ceasar 12/11/2012 [facility] Lactated Ringers Injection IV 1000 mL 1,000 mL, Rate: 50 ml/hr, Infuse over: 20 hr, Route: IV, Dosing Weight 193.182 kg, Total Volume: 1,000, Start date: 12/11/12 13:42:00, Duration: 30 day, Stop date: 01/10/13 13:41:00 IV No Longer Active Johan 12/11/2012 [facility] acetaminophen-hydrocodone 325 mg-5 mg oral tablet 1 tab, Route: PO, Dosing Weight 193.182, kg, Q4H, PRN Pain Score 1-3, Start date: 12/11/12 13:42:00, Duration: 30 day, Stop date: 01/10/13 13:41:00 PO No Longer Active Johan 12/11/2012 [facility] naloxone 0.04 mg, Route: IVP, Q2MIN, Dosing Weight 193.182, kg, PRN Narcotic Reversal, Start date: 12/11/12 13:42:00, Duration: 8 doses or times, Stop date: Limited # of times IVP No Longer Active Johan 12/11/2012 [facility] ondansetron 4 mg, Route: IVP, ONCE, Dosing Weight 193.182, kg, PRN Nausea & Vomiting, Start date: 12/11/12 13:42:00 IVP No Longer Active Johan 12/11/2012 [facility] hydromorphone 0.5 mg, 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, 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, Dosing Weight 193.182, kg, PRN Pain Score 7-10, Start date: 12/11/12 13:42:00, Duration: 5 doses or times, Stop date: Limited # of times IVP No Longer Active [facility] 12/11/2012 [facility] fentanyl 25 microgram, Route: IVP, Q5Min, Dosing Weight 193.182, kg, PRN Pain Score 4-6, Start date: 12/11/12 13:42:00, Duration: 4 doses or times, Stop date: Limited # of times IVP No Longer Active Carmen 12/11/2012 [facility] flumazenil 0.2 mg, Route: IVP, PRN, Dosing Weight 193.182, kg, PRN Benzodiazepine Reversal, Initial dose, Start date: 12/11/12 13:42:00, Duration: 30 day, Stop date: 01/10/13 12:41:00 IVP No Longer Active [facility] 12/11/2012 [facility] morphine Sulfate 2 mg, 1 mL, R oute: IVP, Drug form: INJ, Q3H, Dosing Weight 193.182, kg, PRN Pain Score 1-3, Start date: 12/11/12 13:27:00, Duration: 30 day, Stop date: 01/10/13 13:26:00 IVP No Longer Active Nicolas 12/11/2012 [facility] acetaminophen-hydrocodone 325 mg-10 mg oral tablet 1 tab, Route: PO, Drug Form: TAB, Dosing Weight 193.182, kg, Q4H, PRN Pain Score 4-6, Start date: 12/11/12 13:27:00, Duration: 30 day, Stop date: 01/10/13 13:26:00 PO No Longer Active Nicolas 12/11/2012 [facility] gentamicin + Sodium Chloride 0.9% IV 100 mL 120 mg, 3 mL, Route: IVPB, Drug form: INJ, ONCALL, Dosing Weight 193.182, kg, Start date: 12/11/12 13:00:00, Duration: 30 day, Stop date: 01/10/13 11:59:00 IVPB No Longer Active Nicolas 12/11/2012 [facility] Levaquin 500 mg, 100 mL, Route : IV, Drug form: INJ, ONCALL, Dosing Weight 193.182, kg, Start date: 12/11/12 13:00:00 IV No Longer Active Nicolas 12/11/2012 [facility] Lactated Ringers Injection IV 1000 mL 1,000 mL, Rate: 25 ml/hr, Infuse over: 40 hr, Route: IV, Dosing Weight 193.182 kg, Total Volume: 1,000, Start date: 12/11/12 11:27:00, Duration: 30 day, Stop date: 01/10/13 11:26:00 IV No Longer Active Nick 12/11/2012 [facility] labetalol 5 mg, Route: IVP, Q5 Min, Dosing Weight 193.182, kg, PRN Elevated BP, Start date: 12/04/12 13:04:00, Duration: 5 doses or times, Stop date: Limited # of times IVP No Longer Active [place] 12/04/2012 [facility] esmolol IV Push 10 mg, Route: IVP, Q5Min, Dosing Weight 193.182, kg, PRN Elevated BP, Start date: 12/04/12 13:04:00, Duration: 5 doses or times, Stop date: Limited # of times IVP No Longer Active [place] 12/04/2012 [facility] hydrALAZINE 5 mg, Route: IVP, Q5Min, Dosing Weight 193.182, kg, PRN Elevated BP, Start date: 12/04/12 13:04:00, Duration: 4 doses or times, Stop date: Limited # of times IVP No Longer Active [place] 12/04/2012 [facility] acetaminophen-hydrocodone 325 mg-5 mg oral tablet 1 tab, Route: PO, Dosing Weight 193.182, kg, Q4H, PRN Pain Score 1-3, Start date: 12/04/12 13:04:00, Duration: 30 day, Stop date: 01/03/13 13:03:00 PO No Longer Active [place] 12/04/2012 [facility] hydromorphone 0.5 mg, 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, 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, Dosing Weight 193.182, kg, PRN Pain Score 7-10, Start date: 12/04/12 13:04:00, Duration: 5 doses or times, Stop date: Limited # of times IVP No Longer Active [place] 12/04/2012 [facility] ketorolac 30 mg, Route: IVP, O NCE, Dosing Weight 193.182, kg, Start date: 12/04/12 13:04:00, Duration: 1 doses or times, Stop date: 12/04/12 13:04:00 IVP Active [place] 12/04/2012 [facility] naloxone 0.04 mg, Route: IVP, Q2MIN, Dosing Weight 193.182, kg, PRN Narcotic Reversal, Start date: 12/04/12 13:04:00, Duration: 8 doses or times, Stop date: Limited # of times IVP No Longer Active [place] 12/04/2012 [facility] dexamethasone 4 mg, Route: IVP , ONCE, Dosing Weight 193.182, kg, PRN Nausea & Vomiting, Start date: 12/04/12 13:04:00 IVP No Longer Active [place] 12/04/2012 [facility] ondansetron 4 mg, Route: IVP, ONCE, Dosing Weight 193.182, kg, PRN Nausea & Vomiting, Start date: 12/04/12 13:04:00 IVP No Longer Active [place] 12/04/2012 [facility] flumazenil 0.2 mg, Route: IVP, PRN, Dosing Weight 193.182, kg, PRN Benzodiazepine Reversal, Initial dose, Start date: 12/04/12 13:04:00, Duration: 30 day, Stop date: 01/03/13 13:03:00 IVP No Longer Active [place] 12/04/2012 [facility] morphine Sulfate 2 mg, Route: IVP, Q3H, Dosing Weight 193.182, kg, PRN Pain Score 1-3, Start date: 12/04/12 12:57:00, Duration: 30 day, Stop date: 01/03/13 12:56:00 IVP No Longer Active [facility] 12/04/2012 [facility] acetaminophen-hydrocodone 325 mg-10 mg oral tablet 1 tab, Route: PO, Dosing Weight 193.182, kg, Q4H, PRN Pain Score 4-6, Start date: 12/04/12 12:57:00, Duration: 30 day, Stop date: 01/03/13 12:56:00 PO No Longer Active Ceasar 12/04/2012 [facility] gentamicin 120 mg, Route: IVPB , ONCE, Dosing Weight 193.182, kg, Start date: 12/04/12 11:27:00, Stop date: 12/04/12 11:27:00 IVPB No Longer Active Nicolas 11/09 [facility] Levaquin 500 mg, Route: IVPB, ONCE, Dosing Weight 193.182, kg, Start date: 12/04/12 11:27:00, Stop date: 12/04/12 11:27:00 IVPB No Longer Active Nicolas 11/09 [facility] Lactated Ringers Injection IV 1000 mL 1,000 mL, Rate: 25 ml/hr, Infuse over: 40 hr, Route: IV, Dosing Weight 193.182 kg, Total Volume: 1,000, Start date: 12/04/12 11:05:00, Duration: 30 day, Stop date: 01/03/13 11:04:00 IV No Longer Active Andrea 12/04/2012 [facility] tamsulosin 0.4 mg oral capsule 0.4 mg, 1 cap, PO, Daily, 30 cap, Substitution Allowed, CAP PO Active 12/04/2012 [facility] Zofran 4 mg oral tablet PO, WA N, Substitution Allowed PO Active 12/04/2012 [facility] Cipro PO, Q12H, Substitution A llowed PO Active 12/04/2012 [facility] Aspirin Low Dose 81 mg oral tablet PO, Daily, Substitution Allowed PO Active 12/04/2012 [facility] meloxicam 15 mg oral tablet 15 mg, 1 tab, PO, Daily, 30 tab, Substitution Allowed, TAB PO Active 12/04/2012 [facility] hydrochlorothiazide-triamterene 25 mg-37 .5 mg oral capsule 1 cap, PO, Daily, 30 cap, Substitution A llowed, Maintenance, CAP PO Active 12/04/2012 [facility] amLODipine 5 mg oral tablet 5 mg, 1 tab, PO, Daily, 30 tab, Substitution Allowed, TAB PO Active 12/04/2012 [facility] Bystolic 10 mg oral tablet 10 mg, 1 tab, PO, Daily, 30 tab, Substitution Allowed, TAB PO Active 12/04/2012 [facility] atorvastatin 20 mg oral tablet 20 mg, 1 tab, PO, Daily, 30 tab, Substitution Allowed, TAB PO Active 12/04/2012 [facility] Diovan 320 mg oral tablet 320 mg, 1 tab, PO, Daily, 90 tab, Substitution Allowed, TAB PO Active 12/04/2012 [facility] lansoprazole 30 mg oral delayed release capsule 30 mg, 1 cap, PO, Daily, 30 cap, Substitution Allowed PO Active 12/04/2012 [facility] Allergies, Adverse Reactions, Alerts Substance Category Reaction Severity Reaction type Status Date Reported Comments Source penicillins Assertion Drug allergy Active [facility] Immunizations No Data Provided for This [...] should be multiplied by the estimated BMI. [facility] CHEM PANEL BUN 16 7 - 22 03/13/2018 [facility] CHEM PANEL Creatinine Lvl 1.16 0.50 - 1.40 03/13/2018 [facility] CHEM PANEL Glucose Lvl 135 70 - 99 03/13/2018 [facility] CHEM PANEL Sodium Lvl 140 135 - 145 03/13/2018 [facility] CHEM PANEL Potassium Lvl 3.8 3.5 - 5.1 03/13/2018 [facility] CHEM PANEL Calcium Lvl 9.0 8.5 - 10.5 03/13/2018 [facility] CHEM PANEL CO2 30 24 - 32 03/13/2018 [facility] CHEM PANEL Chloride Lvl 104 95 - 109 03/13/2018 [facility] CHEM PANEL AGAP 9.8 10.0 - 20.0 03/13/2018 [facility] HEMATOLOGY Monocytes 8.3 2.0 - 12.0 03/13/2018 [facility] HEMATOLOGY Segs 59.7 45.0 - 75.0 03/13/2018 [facility] HEMATOLOGY Lymphocytes 28.6 20.0 - 40.0 03/13/2018 [facility] HEMATOLOGY Eosinophils 2.9 0.0 - 4.0 03/13/2018 [facility] HEMATOLOGY Monocytes # 0.7 0.0 - 0.8 03/13/2018 [facility] HEMATOLOGY Eosinophils # 0.3 0.0 - 0.5 03/13/2018 [facility] HEMATOLOGY Basophils 0.5 0.0 - 1.0 03/13/2018 [facility] HEMATOLOGY Neutrophils # 5.3 1.5 - 8.1 03/13/2018 [facility] HEMATOLOGY Lymphocytes # 2.6 1.0 - 5.5 03/13/2018 [facility] HEMATOLOGY Platelet 229 133 - 450 03/13/2018 [facility] HEMATOLOGY RDW 15.1 11.5 - 14.5 03/13/2018 [facility] MPV 8.8 7.4 - 10.4 03/13/2018 [facility] Hgb 14.3 14.0 - 18.0 03/13/2018 [facility] WBC 8.9 3.7 - 10.4 03/13/2018 [facility] HEMATOLOGY RBC 5.11 4.70 - 6.10 03/13/2018 [facility] HEMATOLOGY Hct 43.2 42.0 - 54.0 03/13/2018 [facility] MCHC 33.1 32.0 - 36.0 03/13/2018 [facility] MCH 28.0 27.0 - 31.0 03/13/2018 [facility] HEMATOLOGY MCV 84.6 80.0 - 94.0 03/13/2018 [facility] SPECIAL CHEMISTRY Hgb A1C 7.8 <=5.6 % 03/13/2018 [facility] URINALYSIS UA Color [place] 12/09/2012 NA [facility] URINALYSIS UA RBC >182 0 - 2 12/09/2012 [facility] URINALYSIS UA Sq Epi Occas ional /LPF *NA* (12/09/2012 13:30:00) Few 12/09/2012 NA [facility] URINALYSIS UA WBC 9 0 - 5 12/09/2012 [facility] URINALYSIS UA Turbidity Clear (12/09/2012 13:30:00) Clear 12/09/2012 Normal [facility] URINALYSIS UA Protein Negat tone mg/dL (12/09/2012 13:30:00) Negati ve 12/09/2012 Normal [facility] URINALYSIS UA pH 5.0 5.0 - 8.0 12/09/2012 Normal [facility] URINALYSIS UA Spec Grav 1.015 <=1.030 12/09/2012 Normal [facility] URINALYSIS UA Blood Large *ABN* (12/09/2012 13:30:00) Negati ve 12/09/2012 ABN [facility] URINALYSIS UA Urobilinogen 2.0 0.1 - 1.0 12/09/2012 HI [facility] URINALYSIS UA Nitrite Posit tone *ABN* (12/09/2012 13:30:00) Negati ve 12/09/2012 ABN [facility] URINALYSIS UA Leuk Est Negat tone (12/09/2012 13:30:00) Negati ve 12/09/2012 Normal [facility] URINALYSIS UA Glucose Negat tone mg/dL *NA* (12/09/2012 13:30:00) Negati ve 12/09/2012 NA [facility] URINALYSIS UA Ketones Negat tone mg/dL *NA* (12/09/2012 13:30:00) Negati ve 12/09/2012 NA [facility] URINALYSIS UA Bili Negat tone *NA* (12/09/2012 13:30:00) Negati ve 12/09/2012 NA [facility] Microbiology Culture: Urine 12/09/2012 [facility] CHEMISTRY eGFR 78 12/04/2012 NA <sup>1</sup>Result [...] should be multiplied by the estimated BMI. [facility] CHEMISTRY CO2 29 24 - 32 12/04/2012 Normal [facility] CHEMISTRY Creatinine Lvl 1.1 0.5 - 1.4 12/04/2012 Normal [facility] CHEMISTRY Glucose Lvl 175 70 - 99 12/04/2012 [place] <sup>2</sup>Interpretive Data: Adult ref erence range values reflect the clinical guidelines
of the [place] [employer]. [facility] CHEMISTRY BUN 15 7 - 22 12/04/2012 Normal [facility] CHEMISTRY Calcium Lvl 8.7 8.5 - 10.5 12/04/2012 Normal [facility] CHEMISTRY Potassium Lvl 3.9 3.5 - 5.1 12/04/2012 Normal [facility] CHEMISTRY Sodium Lvl 144 135 - 145 12/04/2012 Normal [facility] CHEMISTRY Chloride Lvl 107 95 - 109 12/04/2012 Normal [facility] CHEMISTRY AGAP 11.9 10.0 - 20.0 12/04/2012 Normal [facility] HEMATOLOGY Hgb 11.7 14.0 - 18.0 12/04/2012 LOW [facility] HEMATOLOGY MCV 83.6 80.0 - 94.0 12/04/2012 Normal [facility] HEMATOLOGY Hct 36.1 42.0 - 54.0 12/04/2012 LOW [facility] HEMATOLOGY RDW 14.2 11.5 - 14.5 12/04/2012 Normal [facility] HEMATOLOGY Platelet 217 133 - 450 12/04/2012 Normal [facility] HEMATOLOGY MPV 8.7 7.4 - 10.4 12/04/2012 Normal [facility] HEMATOLOGY RBC 4.32 4.70 - 6.10 12/04/2012 LOW [facility] HEMATOLOGY MCHC 32.3 32.0 - 36.0 12/04/2012 Normal [facility] HEMATOLOGY MCH 27.0 27.0 - 31.0 12/04/2012 Normal [facility] HEMATOLOGY WBC 7.0 3.7 - 10.4 12/04/2012 Normal [facility] HEMATOLOGY Segs-Bands # 5.0 1.5 - 8.1 12/04/2012 Normal [facility] HEMATOLOGY Basophils 0.2 0.0 - 1.0 12/04/2012 Normal [facility] HEMATOLOGY Eosinophils # 0.1 0.0 - 0.5 12/04/2012 Normal [facility] HEMATOLOGY Monocytes # 0.6 0.0 - 0.8 12/04/2012 Normal [facility] HEMATOLOGY Lymphocytes # 1.2 1.0 - 5.5 12/04/2012 Normal [facility] HEMATOLOGY Segs 72.1 45.0 - 75.0 12/04/2012 Normal [facility] HEMATOLOGY Eosinophils 2.1 0.0 - 4.0 12/04/2012 Normal [facility] HEMATOLOGY Monocytes 8.7 2.0 - 12.0 12/04/2012 Normal [facility] Lymphocytes 16.9 20.0 - 40.0 12/04/2012 LOW [facility] Basophils # 0.0 0.0 - 0.2 12/04/2012 Normal [facility] PTT 30.0 22.9 - 35.8 12/04/2012 Normal <sup>4</sup>Interpretive Data: Heparin T herapeutic Range: 57 - 92 Seconds [facility] PT 12.8 12.0 - 14.7 12/04/2012 Normal [facility] INR 0.97 0.85 - 1.17 12/04/2012 Normal <sup>3</sup>Interpretive Data: RECOMMEND ED RANGES FOR PROTIME INR:
2.0-3.0 for most medical and surgical thromboembolic states.
2.5-3.5 for artificial heart valves and recurrent embolism.

INR SHOULD BE USED ONLY FOR PATIENTS ON STABLE ANTICOAGULANT THERAPY. [facility] Pathology Reports No Data Provided for This Section Diagnostic Reports Report Value Date Source Shoulder w contrast MRI EXAM: MR ARTHROGRAM RIGHT SHOULDER DATE: 02/12/2018 10:01 AM HOME APPLIANCE TECH INDICATION: - M25.511 Pain in right shoulder [...] FOR MR ARTHROGRAM DATE: 02/12/2018 9:20 AM HOME APPLIANCE TECH INDICATION: - M25.511 Pain in right shoulder [...] otherwise normal. 3. Normal orbits 06/16/2015 [facility] [place] Abdomen AP view Spot images fr om Cystoscopy show a left ureteral stent in good position. SL:13 12/11/2012 [facility] Kidney pyelogram retrograde RE TROGRADE PYELOGRAPHY COMPARISON: None IMPRESSION: Multiple fluoroscopic spot radiographs are submitted, demonstrating bilateral retrograde pyelography. Refer to the operating clinician's report for further discussion. SL: 13 12/04/2012 [facility] Consultation Notes No Data Provided for This Section Discharge Summaries No Data Provided for This Section History and Physicals No Data Provided for This Section Vital Signs Vital Sign Value Date Comments Source Systolic (mm Hg) 130 03/19/2018 [facility] Diastolic (mm Hg) 67 03/19/2018 [facility] Systolic (mm Hg) 141 03/19/2018 [facility] Diastolic (mm Hg) 69 03/19/2018 [facility] Systolic (mm Hg) 123 03/19/2018 [facility] Diastolic (mm Hg) 54 03/19/2018 [facility] Respitory Rate 19 03/19/2018 [facility] Respitory Rate 19 03/19/2018 [facility] Respitory Rate 23 03/19/2018 [facility] Heart Rate 79 03/19/2018 [facility] Heart Rate 75 03/19/2018 [facility] Temperature Oral (F) 97.9 F 03/13/2018 [facility] Heart Rate 65 03/13/2018 [facility] Height 182.88 cm 03/13/2018 [facility] Weight 175 03/13/2018 [facility] BMI Calculated 52.32 03/13/2018 [facility] Systolic (mm Hg) 156 12/11/2012 [facility] Diastolic (mm Hg) 55 12/11/2012 [facility] Diastolic (mm Hg) 72 12/11/2012 [facility] Systolic (mm Hg) 150 12/11/2012 [facility] Respitory Rate 17 12/11/2012 [facility] Systolic (mm Hg) 135 12/11/2012 [facility] Diastolic (mm Hg) 65 12/11/2012 [facility] Respitory Rate 14 12/11/2012 [facility] Respitory Rate 18 12/11/2012 [facility] Heart Rate 66 12/11/2012 [facility] Temperature Oral (F) 98.3 F 12/09/2012 [facility] Heart Rate 74 12/09/2012 [facility] Height 177.8 cm 12/09/2012 [facility] Weight 193.182 12/09/2012 [facility] Diastolic (mm Hg) 70 12/04/2012 [facility] Systolic (mm Hg) 144 12/04/2012 [facility] Respitory Rate 19 12/04/2012 [facility] Systolic (mm Hg) 146 12/04/2012 [facility] Diastolic (mm Hg) 75 12/04/2012 [facility] Systolic (mm Hg) 145 12/04/2012 [facility] Diastolic (mm Hg) 63 12/04/2012 [facility] Respitory Rate 16 12/04/2012 [facility] Respitory Rate 18 12/04/2012 [facility] Heart Rate 73 12/04/2012 [facility] Temperature Oral (F) 98.3 F 12/04/2012 [facility] Weight 193.182 12/04/2012 [facility] Height 177.8 cm 12/04/2012 [facility] Encounters Location Location Details Encounter Type Encounter Number Reason For Visit Attending Provider ADM Date DC Date Status Source [facility] DS [id number] MARIANN CEASAR 12/04/2012 12/04/2012 Discharged [facility] DS [id number] [facility] CEASAR 12/11/2012 12/11/2012 Discharged [facility] [place] [facility] [id number] 00 Baltazar Guerrero 06/16/2015 06/17/2015 [facility] [place] [facility] Out[facility] [id number] Oswald Wyatt 02/12/2018 02/13/2018 [facility] Day Surgery [id number] Oswald Fontanezn 03/19/2018 03/19/2018 [facility] [place] OP Therapy Patients [id number] Oswald Wyatt 04/07/2018 05/07/2018 [facility] [place] OP Therapy Patients [id number] Oswald Fontanezn 05/07/2018 06/06/2018 [facility] [place] Procedures Procedure Code Date Perfomer Comments Source Injection procedure for shoulder arthrog bakari or enhanced CT/MRI shoulder arthrography 82380 02/12/2018 [facility] Cystourethroscopy, with insertion of ind welling ureteral stent (eg, De [place] or double-J type) [id number] 12/11/2012 [facility] Cystourethroscopy, with ureteroscopy and /or pyeloscopy; with removal or manipulation of calculus (ureteral catheterization is included) 08108 12/11/2012 [facility] Transurethral Removal of Obstruction fro m Ureter and Renal Pelvis [id number] 12/11/2012 [facility] Ureteral Catheterization C0041 953 12/11/2012 [facility] Shoulder joint operations<sup>1</sup> [id number] 03/10/2010 SLAP tear [facility] Harika casillas 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 [id number] 03/10/2007 [facility], [facility] [place],[facility] [place] 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<sup>1</sup> [id number] [facility] [place] Shoulder joint operations 1794 27212 [facility] [place] Stent placement [id number] [facility] Ablation [id number] [facility] Cardiac catheterization [id number] 19 [facility] Cholecystectomy [id number] [facility] 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 <sup>1</sup> [id number] 1bone graft & metal plate [facility] Lithotripsy [id number] [facility] Shoulder joint operations 2776 04955 [facility] 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 [id number] [facility] Ablation [id number] [facility] He [facility], [facility] [place], [facility] [place] Arthroplasty of knee [id number] [facility] [place],[facility] [place] Cardiac catheterization [id number] [facility] [place], [facility] [place],[facility] [place] Cholecystectomy [id number] [facility] [place], [facility] [place],[facility] [place] 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<sup>2</sup> [id number] bone graft & metal plate [facility],[facility] [place] Lithotripsy [id number] [facility] [place], [facility] [place],[facility] [place] Stent placement [phone] [facility] R[facility], [facility] [place],[facility] [place] Assessment and Plan No Data Provided for This Section Plan of Care No Data Provided for This Section Social History Social History Date Source Social History TypeResponse Substance Abuse Use: None. Alcohol Never Smoking Status Never smoker; Exposure to Tobacco Smoke None; Cigarette Smoking Last 365 Days No; Reg Smoking Cessation Counseling No entered on: 03/13/18 03/13/2018 [facility] [place] Social History TypeResponse Substance Abuse Use: None. [...]
--- OUTSIDE RECORDS SUMMARY | 2019-11-02 22:25 | XMS REPORT | Continuity of Care Document ---
Author Author [facility] t Organization [facility] Address [address] [place] [address] Phone Unavailable Care Team Providers Care Signing Agent Name Role Phone DO KARTHIKEYAN GUERRERO DO PCP Ashley BOCANEGRA Attphys Unavailable Celestino SALDAÑA Attphys Unavailable CARLOS COX Attphys Unavailable CHARI EPPS Attphys Unavailable NAVARRO CHONG Attphys Unavailable DOMENIC CHAPMAN Attphys Unavailable CASTANEDA, SOUHEIL Attphys Unavailable Soto Wyatt Attphys RASHMI, HIGGINS Attphys Unavailable Spencer Guerrero Attphys CASTANEDA, SOUHEIL Admphys Unavailable RASHMI, HIGGINS Admphys Unavailable Payers Payer Name Policy Type Policy Number Effective Date Expiration Date S jasen [employer] [place] Ppo [id number] 2019 00:00:00 [facility] Problems Condition Name Condition Details Condition Category Status Onset Date Resolution Date Last Treatment Date Treating Clinician Comments Source LANG CROFT Active 03/04/2018 [facility] Active 2018-03-04 00:00:00 2018-03-19 06:00:00 M lucinda Ritter RT SHOULDER RT S SIMI Active 10/08/2017 [facility] Active 2017-10-08 08:00:00 2018-05-07 15:58:00 [facility] 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 H 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 H Active 05/31/2015 F[facility] Christy Diagnosis Active 2015-05-31 00:01:00 2015-06-16 12:29:00 M lucinda Gagnonann ICD NOT GIVEN / CPT 76107 [id number] ICD NOT GIVEN / CPT 32312 [id number] Active 12/04/2012 [facility] Ac tive 2012-12-04 00:00:00 2012-12-11 09:31:00 M emoriphyllis Gagnonann STONE 592.0 592.1/CPT 58940 41742 STONE 592.0 592.1/CPT 86364 30411 Active 12/03/2012 [facility] Active 12-03 00:00:00 2012-12-04 09:25:00 [facility] Fever Fever Problem Active [facility] Pneumonia Pneumonia Problem Active [facility] Pyelonephritis Pyelonephritis Problem Active [facility] Hydronephrosis Hydronephrosis Problem Active [facility] Renal insufficiency Renal insufficiency Problem Active [facility] Calculus of ureter Ureterolithiasis Problem Active [facility] Incomplete rotator cuff tear or rupture of right shoulder, not specified as traumatic Incomplete rotat or cuff tear or rupture of right shoulder, not specified as traumatic 09/02/2018 FIONA Ritter Problem 2018-09-02 11:20:31 [facility] Bicipital tendinitis, right shoulder Bicipital tendinitis, right shoulder 09/02/2018 [facility] [place] Problem 2018-09-02 11:20:31 [facility] Effusion, left knee Effu altagracia, left knee 09/02/2018 [facility] [place] Problem 2018-09-02 11:20:31 [facility] Pain in left knee Pain in left knee 09[facility]02[facility] 2018-09-02 11:20:31 [facility] Strain of muscle, fascia and tendon of l jigna head of biceps, right arm, initial encounter Strain of muscle , fascia and tendon of long head of biceps, right arm, initial encounter 10/06/2018 [facility] Problem 2018-10-06 14:18:02 Jyoti Ritter Other synovitis and tenosynovitis, right shoulder Other synovitis and tenosynovitis, right shoulder 10/06/2018 [facility] Problem 2018-10-06 14:18:02 Jyoti arora Loose body in right shoulder L oose body in right shoulder 10/06/2018 [facility] Problem 2018-10-06 14:1 8:02 [facility] Primary osteoarthritis, right shoulder Primary osteoarthritis, right shoulder 10/06/2018 [facility] Problem 2018-10-06 14:18:02 Jyoti Ritter Morbid (severe) obesity due to excess calories Morbid (severe) obesity due to excess calories 10/06/2018 [facility] Problem 2018-10-06 14:18:02 [facility] Body mass index (BMI) 50-59.9 , adult Body mass index (BMI) 50-59.9 , adult 10/06/2018 [facility] Problem 2018-10-06 14:18:02 [facility] Essential (primary) hypertension Essential (primary) hypertension 10/06/2018 [facility] Problem 2018-10-06 14:18:02 [facility] Gastro-esophageal reflux disease without esophagitis Gastro-esophageal reflux disease without esophagitis 10/06/2018 [facility] Problem 2018-10-06 14:18:02 [facility] Type 2 diabetes mellitus without complications Type 2 diabetes mellitus without complications 10/06/2018 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 Problem 2018-10-06 14:18:02 [facility] Chest pain Ches t pain Resolved Problem 12/18/2012 27/13 Dx as acid reflux [facility] Problem Resolved 2012-12-18 02: 08:29 [facility] Poor peripheral circulation Po or peripheral circulation Resolved Problem 12/18/2012 3swelling to LE [facility] Problem Resolved 2012-12-18 02:08:29 [facility] Backache (finding) Back ache (finding) Resolved Problem 10/06/2018 lumbar FIONA Ritter, FIONA Christy,[facility] Problem Resolved 2018-10-06 14:18:02 Jyoti Gagnonann Chest pain (finding) Ches t pain (finding) Resolved Problem 10/06/2018 7/13 Dx as acid reflux FIONA Ritter, FIONA Christy,[facility] Problem Resolved 2018-10-06 14:18:02 Jyoti [place] Poor peripheral circulation (disorder) Poor peripheral circulation (disorder) Resolved Problem 10/06/2018 swelling to LE FIONA Ritter, FIONA Christy,[facility] Problem Resolved 2018-10-06 14:18:02 Jyoti [place] Kidney stone (disorder) Kidn ey stone (disorder) Resolved Problem 10/06/2018 FIONA Ritter, FIONA Christy,[facility] Problem Resolved 2018-10-06 14:18:02 Jyoti Gagnonann Retained ureteric stent (disorder) Retained ureteric stent (disorder) Resolved Problem 10/06/2018 left FIONA Ritter, FIONA Christy,[facility] Problem Resolved 2018-10-06 14:18:0 2 Jyoti [place] Acid reflux Acid reflux Active Problem 12/18/2012 [facility] Problem Active 2012-12-18 02:08:29 Ga benito Ritter Back pain Back pain Active Problem 12/18/2012 1lumbar [facility] Problem Active 2012-12-18 02:08:29 Jyoti Ritter Foot swelling Foot swelling Active Problem 12/18/2012 [facility] Problem Active 2012-12-18 02:08:29 Jyoti Ritter GERD - Gastro-esophageal reflux disease GERD - Gastro- esophageal reflux disease Active Problem 12/18/2012 [facility] Problem A ctive 2012-12-18 02:08:29 [facility] HTN - Hypertension HTN - Hypertension Active Problem 12/18/2012 [facility] Problem Active 2012-12-18 02:08:29 Jyoti Ritter Obese Obes e Active Problem 12/18/2012 [facility] Problem Active 2012-12-18 02:08:29 Jyoti Ritter Renal stone Kusum l stone Active Problem 12/18/2012 [facility] Problem Active 2012-12-18 02:08:29 Ga benito Ritter Retained ureteral stent Vandana ined ureteral stent Active Problem 12/18/2012 4left [facility] Problem Active 2012-12-18 02:0 8:29 [facility] Sleep apnea Slee p apnea Active Problem 12/18/2012 5uses CPAP [facility] Problem Active 2012-12-18 02:08:29 [facility] Gastroesophageal reflux disease (disorder) Gastroesophageal reflux disease (disorder) Active Problem 10/06/2018 FIONA Ritter, [facility], [facility] Problem Active 2018-10-06 14:18:02 [facility] Diabetes mellitus (disorder) D iabetes mellitus (disorder) Active Problem 10/06/2018 FIONA Ritter,[facility] Problem Active 2018-10-06 14:18:02 [facility] Foot swelling (finding) Foot swelling (finding) Active Problem 10/06/2018 FIONA Ritter, FIONA Christy,[facility] Problem Active 2018-10-06 14:18:02 [facility] Hypertensive disorder, systemic arterial (disorder) Hypertensive disorder, systemic arterial (disorder) Active Problem 10/06/2018 FIONA Ritter, F[facility]A [place],[facility] Problem A ctive 2018-10-06 14:18:02 [facility] arora Injury of superior glenoid labrum of shoulder joint (d isorder) Injury of superior glenoid labrum of shoulder joint (disorder) Active Problem 10/06/2018 FIONA Ritter,[facility] Problem Active 2018-10-06 14:18:02 [facility] Obese (finding) Obes e (finding) Active Problem 10/06/2018 FIONA Ritter, F[facility]A [place],[facility] Problem A ctive 2018-10-06 14:18:02 [facility] Sleep apnea (finding) Slee p apnea (finding) Active Problem 10/06/2018 uses CPAP FIONA Ritter FIONA [place],[facility] Problem Active 2018-10-06 14:18:02 Misael Ritter Superior glenoid labrum lesion of right shoulder, init ial encounter Superior glenoid labrum lesion of right shoulder, initial encounter 03/25/2018 10/06/2018 [facility] Problem 2018-03-25 04:5 9:23 2018-10-06 14:18:02 2018-10-06 14:18:02 Jyoti arora Impingement syndrome of right shoulder Impingement syndrome of right shoulder 02/21/2018 09/02/2018 DANIEL Ritter Problem 2018-02-21 05:43:43 2018-09-02 11:20:31 2018-09-02 11:20:31 Jyoti Ritter Allergies, Adverse Reactions, Alerts Allergy Name Allergy Type Status Severity Reaction(s) Onset Date Inacti ve Date Treating Clinician Comments Source Penicillins Propensity to adverse reactions to drug Active Rash 2018-10-09 00:00:00 Jose Luis Giordano t Penicillins DA Active PR 2013-12-14 00:00:00 [facility] Penicillin Allergy to substance Active Mild RASH 2012-04-09 00:00:00 [facility] penicillins penicillins Active [facility] Family History Family Member Diagnosis Comments Start Date Stop Date Source Maternal grandmother Diabetes [facility]el [facility] Natural mother Diabetes [facility] thodist Social History Social Habit Start Date Stop Date Quantity Comments Source History SDOH Alcohol Std Drinks [place] [facility] History SDOH Alcohol Binge [place] [facility] Sex Assigned At Jonel maria isabel [facility] Alcohol intake 2018-10-15 00:00:00 2018-10-15 00:00:00 Lifetime non-drinker (finding) [place] [facility] History SDOH Alcohol Frequency 2018-10-09 00:00:00 2018-10-09 00:00:0 0 1 [place] [facility] Social History 2015-06-17 04:59:00 2015-06-17 04:59:00 [facility] Smoking Status Start Date Stop Date Source Never smoker Amaya Pasquale starkey Medications Ordered Medication Name Filled Medication Name Start Date Stop Da te Current Medication? Ordering Clinician Indication Dosage Frequency Signature (SIG) Comments Components Source Acetaminophen With Codeine (Tylenol With Codeine #3 Ta blet) 1 Each TABLET Acetaminophen With Codeine (Tylenol With Codeine #3 Tablet) 1 Each TABLET 2019-04-01 12:56:00 Yes 300 Every 4 Hours for Pain [facility] Levofloxacin (Levaquin) 750 Mg TABLET Levofloxacin (Levaquin ) 750 Mg TABLET 2019-04-01 12:56:00 Yes 750 Daily [facility] Ondansetron Hcl (Zofran*) 4 Mg TABLET Ondansetron Hcl (Zofra n*) 4 Mg TABLET 2019-04-01 12:56:00 Yes 4 Every 6 Hours as n eeded for Nausea [facility] Tamsulosin Hcl (Flomax*) 0.4 Mg CAP Tamsulosin Hcl (Flomax*) 0.4 Mg CAP 2019-04-01 12:56:00 Yes .4 Daily [facility] dapagliflozin (FARXIGA) 5 mg tablet 2018-10-14 16:19:34 [...] by mouth daily. Default OP ins Jonel Mejia metFORMIN (GLUCOPHAGE) 500 mg tablet 2018-10-14 16:19:34 Ye s 500mg Q.5D Take 500 mg by mouth 2 (two) times a day with meals. Jose Luis Mejia nebivolol (BYSTOLIC) 20 mg tablet 2018-10-14 16:19:34 Yes 20mg QD Take 20 mg by mouth daily. Jose Luis Mejia meclizine (ANTIVERT) 25 mg tablet 2018-10-14 16:19:34 Ye s 25mg [id number] Take 25 mg by mouth 3 (three) times a da y as needed for dizziness. Jose Luis Mejia B complex with C#20-folic acid 1 mg capsule 2018-10-14 16:19:34 Yes QD Take by mouth daily. Jose Luis alexandra glucosam/chond/collagen/hyalur ([id number] AC ORAL) 2018-10-14 16:19:34 Yes Take by mouth. Jose Luis Mejia Ketorolac 2018-03-19 18:00:00 No 15 mg, Route: IVP, Q6H, Dosing Weight 175, kg, Start date: 03/19/18 12:00:00 SOFTWARE DEVELOPMENT COORDINATOR, Duration: 6 doses or times, Stop date: 03/20/18 18:00:00 SOFTWARE DEVELOPMENT COORDINATOR Daniel vasquez [place] Phenergan 2018-03-19 16:02:00 No 25 mg, Route: IVPB, Q4H, Dosing Weight 175, kg, PRN Nausea & Vomiting, Start date: 03/19/18 10:02:00 SOFTWARE DEVELOPMENT COORDINATOR, Duration: 30 day, Stop date: 04/18/18 10:01:00 SOFTWARE DEVELOPMENT COORDINATOR [facility] Zofran 2018-03-19 16:02:00 No 4 mg, Route: IV, Drug form: INJ, Q4H, Dosing Weight 175, kg, PRN Nausea, Start date: 03/19/18 10:02:00 SOFTWARE DEVELOPMENT COORDINATOR, Duration: 30 day, Stop date: 04/18/18 10:01:00 SOFTWARE DEVELOPMENT COORDINATOR [facility] Morphine 2018-03-19 16:02:00 No 2 mg, Route: IVP, Q3H, Dosing Weight 175, kg, PRN Pain Score 1-3, Start date: 03/19/18 10:02:00 SOFTWARE DEVELOPMENT COORDINATOR, Duration: 30 day, Stop date: 04/18/18 10:01:00 SOFTWARE DEVELOPMENT COORDINATOR [facility] Tramadol 2018-03-19 16:02:00 No 50 mg, Route: PO, Drug form: TAB, Q6H, Dosing Weight 175, kg, PRN Pain Score 1-3, Start date: 03/19/18 10:02:00 SOFTWARE DEVELOPMENT COORDINATOR, Duration: 30 day, Stop date: 04/18/18 10:01:00 [facility] Hydromorphone 2018-03-19 16:02:00 No 0.3 mg, Route: IVP, Q3H, Dosing Weight 175, kg, PRN Pain Score 4-6, Start date: 03/19/18 10:02:00 SOFTWARE DEVELOPMENT COORDINATOR, Duration: 30 day, Stop date: 04/18/18 10:01:00 [facility] Acetaminophen 325 MG / Hydrocodone Bitartrate 5 MG Oral Tabl et 2018-03-19 16:02:00 No Route: PO, Dosing Weight 175, kg, Q4H, PRN Pain Score 4-6, Start date: 03/19/18 10:02:00 SOFTWARE DEVELOPMENT COORDINATOR, Duration: 30 day, Stop date: 04/18/18 10:01:00 SOFTWARE DEVELOPMENT COORDINATOR Jyoti Ritter ceFAZolin (ISABELS) 2018-03-19 14:57:00 No Route: IV, Drug form: INJ, ONCE, Stop date: 03/19/18 8:57:00 SOFTWARE DEVELOPMENT COORDINATOR Ga benito Ritter neostigmine (ISABELS) 2018-03-19 14:57:00 No Route: IV, Drug form: INJ, ONCE, Stop date: 03/19/18 8:57:00 SOFTWARE DEVELOPMENT COORDINATOR Ga benito Ritter glycopyrrolate ([facility]) 2018-03-19 14:57:00 No Route: IV, Drug form: INJ, ONCE, Stop date: 03/19/18 8:57:00 SOFTWARE DEVELOPMENT COORDINATOR [facility] propofol (ISABEL) 2018-03-19 14:57:00 No Route: IV, Drug form: INJ, ONCE, Stop date: 03/19/18 8:57:00 SOFTWARE DEVELOPMENT COORDINATOR Ga benito Ritter rocuronium ([facility]) 2018-03-19 14:57:00 No Route: IV, Drug form: INJ, ONCE, Stop date: 03/19/18 8:57:00 SOFTWARE DEVELOPMENT COORDINATOR Ga benito Ritter famotidine ([facility]) 2018-03-19 14:57:00 No Route: IV, Drug form: INJ, ONCE, Stop date: 03/19/18 8:57:00 SOFTWARE DEVELOPMENT COORDINATOR Ga benito Ritter acetaminophen ([facility]) 2018-03-19 14:57:00 No Route: IV, Drug form: INJ, ONCE, Stop date: 03/19/18 8:57:00 SOFTWARE DEVELOPMENT COORDINATOR [facility] metoclopramide (ISABELS) 2018-03-19 14:57:00 No Route: IV, Drug form: INJ, ONCE, Stop date: 03/19/18 8:57:00 SOFTWARE DEVELOPMENT COORDINATOR [facility] ondansetron (ISABELS) 2018-03-19 14:57:00 No Route: IV, Drug form: INJ, ONCE, Stop date: 03/19/18 8:57:00 SOFTWARE DEVELOPMENT COORDINATOR Ga benito Ritter vancomycin (ANES) 2018-03-19 14:57:00 No Route: IV, Drug form: INJ, ONCE, Stop date: 03/19/18 8:57:00 SOFTWARE DEVELOPMENT COORDINATOR Ga benito Ritter lidocaine (ANES) 2018-03-19 14:57:00 No Route: IV, Drug form: INJ, ONCE, Stop date: 03/19/18 8:57:00 SOFTWARE DEVELOPMENT COORDINATOR Ga benito Ritter Naloxone 2018-03-19 14:33:00 No 0.04 mg, Route: IVP, Q2MIN, Dosing Weight 175, kg, PRN Narcotic Reversal, Start date: 03/19/18 8:33:00 SOFTWARE DEVELOPMENT COORDINATOR, Duration: 30 day, Stop date: 04/18/18 8:32:00 SOFTWARE DEVELOPMENT COORDINATOR Jyoti Ritter Lactated Ringers IV 1000 mL 2018-03-19 14:33:00 No 1,000 mL, Rate: 100 ml/hr, Infuse over: 10 hr, Route: IV, Dosing Weight 175 kg, Total Volume: 1,000, Start date: 03/19/18 8:33:00 SOFTWARE DEVELOPMENT COORDINATOR, Duration: 30 day, Stop date: 04/18/18 8:32:00 SOFTWARE DEVELOPMENT COORDINATOR, 3.03, m2 [facility] Lactated Ringers Injection IV (ANES) 1000 mL 2018-03-19 13:53:00 No Route: IV, Total Volume: 1,000, Start date: 03/19/18 7:53:00 SOFTWARE DEVELOPMENT COORDINATOR, Stop date: 03/19/18 8:53:00 SOFTWARE DEVELOPMENT COORDINATOR [facility] Calcium Chloride 0.0014 MEQ/ML / Potassi um Chloride 0.004 MEQ/ML / Sodium Chloride 0.103 MEQ/ML / Sodium Lactate 0.028 MEQ/ML Injectable Solution 2018-03-19 12:56:00 No 1,000 mL, Rate: 25 ml/hr, Infuse over: 40 hr, Route: IV, Dosing Weight 175 kg, Total Volume: 1,000, Start date: 03/19/18 6:56:00 SOFTWARE DEVELOPMENT COORDINATOR, Duration: 30 day, Stop date: 04/18/18 6:55:00 SOFTWARE DEVELOPMENT COORDINATOR, 3.03, m2 [facility] clindamycin 300 mg oral capsule 2018-03-19 11:49:00 No 300 mg = 1 cap, PO, TID, X 15 day, # 45 cap, 0 Refill(s) Jyoti Ritter meclizine 25 mg oral tablet 2018-03-13 21:56:00 Yes 25 mg = 1 tab, PO, PRN, 0 Refill(s) Jyoti Ritter Metformin hydrochloride 500 MG Oral Tablet 2018-03-13 21:55:00 Yes 500 mg = 1 tab, PO, Bedtime, 0 Refill(s) Jyoti Ritter pantoprazole 40 mg oral enteric coated tablet 2018-03-13 21:55:0 0 Yes 40 mg = 1 tab, PO, Daily, 0 Refill(s) Jyoti Ritter Amlodipine 5 MG / valsartan 320 MG Oral Tablet 2018-03-13 21:55: 00 Yes 1 tab, PO, Daily, # 30 tab, 0 Refill(s) Jyoti Ritter Glucosamine Chondroitin 2018-03-13 21:54:00 Yes PO, Daily, 0 Refill(s) Jyoti Ritter Super B Complex oral tablet 2018-03-13 21:54:00 Yes PO, Daily, 0 Refill(s) Jyoti Ritter dapagliflozin propanediol 10 MG Oral Tablet [Farxiga] 2018-03-13 21:54:00 Yes 10 mg = 1 tab, PO, Daily, 0 Refill(s) Jyoti Ritter ketorolac 2012-12-11 23:00:00 No Baldev Nicolas 15 mg, 1 mL, Route: IVP, Drug form: INJ, Q6H, Dosing Weight 193.182, kg, Start date: 12/11/12 18:00:00, Duration: 6 doses or times, Stop date: 12/13/12 0:00:00 Jyoti Ritter Lactated Ringers Injection IV 1000 mL 2012-12-11 18:42:00 No Shruthi Prado 1,000 mL, Rate: 50 m l/hr, Infuse over: 20 hr, Route: IV, Dosing Weight 193.182 kg, Total Volume: 1,000, Start date: 12/11/12 13:42:00, Duration: 30 day, Stop date: 01/10/13 13:41:00 [facility] acetaminophen-hydrocodone 325 mg-5 mg oral tablet 18:42:00 No Shruthi Prado 1 tab, Route: PO , Dosing Weight 193.182, kg, Q4H, PRN Pain Score 1-3, Start date: 12/11/12 13:42:00, Duration: 30 day, Stop date: 01/10/13 13:41:00 [facility] naloxone 2012-12-11 18:42:00 No Shruthi Leung Maxian 0.04 mg, Route: IVP, Q2MIN, Dosing Weight 193.182, kg, PRN Narcotic Reversal, Start date: 12/11/12 13:42:00, Duration: 8 doses or times, Stop date: Limited # of times [facility] ondansetron 2012-12-11 18:42:00 No Shruthi Leung Maxian 4 mg, Route: IVP, ONCE, Dosing Weight 193.182, kg, PRN Nausea & Vomiting, Start date: 12/11/12 13:42:00 [facility] hydromorphone 2012-12-11 18:42:00 No Shruthi Leung Maxian 0.5 mg, Route: IVP, Q5Min, Dosing Weight 193.182, kg, PRN Pain Score 7-10, Start date: 12/11/12 13:42:00, Duration: 5 doses or times, Stop date: Limited # of times [facility] fentanyl 2012-12-11 18:42:00 No Raphael Moody Morales 25 microgram, Route: IVP, Q5Min, Dosing Weight 193.182, kg, PRN Pain Score 4-6, Start date: 12/11/12 13:42:00, Duration: 4 doses or times, Stop date: Limited # of times [facility] flumazenil 2012-12-11 18:42:00 No Shruthi Leung Maxian 0.2 mg, Route: IVP, PRN, Dosing Weight 193.182, kg, PRN Benzodiazepine Reversal, Initial dose, Start date: 12/11/12 13:42:00, Duration: 30 day, Stop date: 01/10/13 12:41:00 [facility] morphine Sulfate 2012-12-11 18:27:00 No Baldev pina 2 mg, 1 mL, Route: IVP, Drug form: INJ, Q3H, Dosing Weight 193.182, kg, PRN Pain Score 1-3, Start date: 12/11/12 13:27:00, Duration: 30 day, Stop date: 01/10/13 13:26:00 [facility] acetaminophen-hydrocodone 325 mg-10 mg oral tablet 2012-12 18:27:00 No Baldev Owens Nicolas 1 tab, Route: P O, Drug Form: TAB, Dosing Weight 193.182, kg, Q4H, PRN Pain Score 4-6, Start date: 12/11/12 13:27:00, Duration: 30 day, Stop date: 01/10/13 13:26:00 [facility] S[facility] Chloride 0.9% IV 100 mL 2012-12-11 18: 00:00 No Baldev Owens Nicolas 120 mg, 3 mL, Ro brendan: IVPB, Drug form: INJ, ONCALL, Dosing Weight 193.182, kg, Start date: 12/11/12 13:00:00, Duration: 30 day, Stop date: 01/10/13 11:59:00 [facility] Levaquin 2012-12-11 18:00:00 No Baldev Owens Nicolas 500 mg, 100 mL, Route: IV, Drug form: INJ, ONCALL, Dosing Weight 193.182, kg, Start date: 12/11/12 13:00:00 [facility] Lactated Ringers Injection IV 1000 mL 2012-12-11 16:27:00 No Yosef Madiha Nick 1,000 mL, Rate: 25 ml/hr, Infuse over: 40 hr, Route: IV, Dosing Weight 193.182 kg, Total Volume: 1,000, Start date: 12/11/12 11:27:00, Duration: 30 day, Stop date: 01/10/13 11:26:00 [facility] 2012-12-04 18:04:00 No Dleroy Luque Crum 5 mg, Route: IVP, Q5Min, Dosing Weight 193.182, kg, PRN Elevated BP, Start date: 12/04/12 13:04:00, Duration: 5 doses or times, Stop date: Limited # of times [facility] esmolol IV Push 2012-12-04 18:04:00 No Delroy Luque Bake r 10 mg, Route: IVP, Q5Min, Dosing Weight 193.182, kg, PRN Elevated BP, Start date: 12/04/12 13:04:00, Duration: 5 doses or times, Stop date: Limited # of times [facility] hydrALAZINE 2012-12-04 18:04:00 No Delroy Crum 5 mg, Route: IVP, Q5Min, Dosing Weight 193.182, kg, PRN Elevated BP, Start date: 12/04/12 13:04:00, Duration: 4 doses or times, Stop date: Limited # of times [facility] acetaminophen-hydrocodone 325 mg-5 mg oral tablet 18:04:00 No Delroy Crum 1 tab, Route: PO, Dosing Weight 193.182, kg, Q4H, PRN Pain Score 1-3, Start date: 12/04/12 13:04:00, Duration: 30 day, Stop date: 01/03/13 13:03:00 [facility] hydromorphone 2012-12-04 18:04:00 No Delroy Crum 0.5 mg, Route: IVP, Q5Min, Dosing Weight 193.182, kg, PRN Pain Score 7-10, Start date: 12/04/12 13:04:00, Duration: 5 doses or times, Stop date: Limited # of times [facility] ketorolac 2012-12-04 18:04:00 Yes Delroy Crum 30 mg, Route: IVP, ONCE, Dosing Weight 193.182, kg, Start date: 12/04/12 13:04:00, Duration: 1 doses or times, Stop date: 12/04/12 13:04:00 [facility] naloxone 2012-12-04 18:04:00 No Delroy Crum 0.04 mg, Route: IVP, Q2MIN, Dosing Weight 193.182, kg, PRN Narcotic Reversal, Start date: 12/04/12 13:04:00, Duration: 8 doses or times, Stop date: Limited # of times [facility] dexamethasone 2012-12-04 18:04:00 No Delroy Crum 4 mg, Route: IVP, ONCE, Dosing Weight 193.182, kg, PRN Nausea & Vomiting, Start date: 12/04/12 13:04:00 [facility] ondansetron 2012-12-04 18:04:00 No Delroy Crum 4 mg, Route: IVP, ONCE, Dosing Weight 193.182, kg, PRN Nausea & Vomiting, Start date: 12/04/12 13:04:00 [facility] flumazenil 2012-12-04 18:04:00 No Delroy Crum 0.2 mg, Route: IVP, PRN, Dosing Weight 193.182, kg, PRN Benzodiazepine Reversal, Initial dose, Start date: 12/04/12 13:04:00, Duration: 30 day, Stop date: 01/03/13 13:03:00 [facility] morphine Sulfate 2012-12-04 17:57:00 No Baldev Graciela Nguye n 2 mg, Route: IVP, Q3H, Dosing Weight 193.182, kg, PRN Pain Score 1-3, Start date: 12/04/12 12:57:00, Duration: 30 day, Stop date: 01/03/13 12:56:00 [facility] acetaminophen-hydrocodone 325 mg-10 mg oral tablet 2012-11 17:57:00 No Baldev Graciela Nicolas 1 tab, Route: P O, Dosing Weight 193.182, kg, Q4H, PRN Pain Score 4-6, Start date: 12/04/12 12:57:00, Duration: 30 day, Stop date: 01/03/13 12:56:00 [facility] gentamicin 2012-12-04 16:27:00 No Baldev Graciela Nicolas 120 mg, Route: IVPB, ONCE, Dosing Weight 193.182, kg, Start date: 12/04/12 11:27:00, Stop date: 12/04/12 11:27:00 [facility] Levaquin 2012-12-04 16:27:00 No Baldev Graciela Nicolas 500 mg, Route: IVPB, ONCE, Dosing Weight 193.182, kg, Start date: 12/04/12 11:27:00, Stop date: 12/04/12 11:27:00 [facility] Lactated Ringers Injection IV 1000 mL 2012-12-04 16:05:00 No Denton Mendez 1,000 mL, Rate: 25 ml/hr, Infuse over: 40 hr, Route: IV, Dosing Weight 193.182 kg, Total Volume: 1,000, Start date: 12/04/12 11:05:00, Duration: 30 day, Stop date: 01/03/13 11:04:00 Ga benito Ritter tamsulosin 0.4 mg oral capsule 2012-12-04 15:20:21 Yes 0.4 mg, 1 cap, PO, Daily, 30 cap, Substitution Allowed, CAP [facility] Zofran 4 mg oral tablet 2012-12-04 15:20:08 Yes PO, PRN, Substitution Allowed Jyoti Ritter Cipro 2012-12-04 15:19:57 Yes PO, Q12H, Subs titution Allowed [facility] Aspirin Low Dose 81 mg oral tablet 2012-12-04 15:14:56 Yes PO, Daily, Substitution Allowed Jyoti arora meloxicam 15 mg oral tablet 2012-12-04 15:14:50 Yes 15 mg, 1 tab, PO, Daily, 30 tab, Substitution Allowed, TAB [facility] hydrochlorothiazide-triamterene 25 mg-37.5 mg oral capsule 2012-12-04 15:14:41 Yes 1 cap, PO, Daily, 30 cap , Substitution Allowed, Maintenance, CAP [facility] amLODipine 5 mg oral tablet 2012-12-04 15:14:13 Yes 5 mg, 1 tab, PO, Daily, 30 tab, Substitution Allowed, TAB [facility] Bystolic 10 mg oral tablet 2012-12-04 15:13:57 Yes 10 mg, 1 tab, PO, Daily, 30 tab, Substitution Allowed, TAB [facility] atorvastatin 20 mg oral tablet 2012-12-04 15:13:45 Yes 20 mg, 1 tab, PO, Daily, 30 tab, Substitution Allowed, TAB [facility] Diovan 320 mg oral tablet 2012-12-04 15:13:33 Yes 320 mg, 1 tab, PO, Daily, 90 tab, Substitution Allowed, TAB [facility] lansoprazole 30 mg oral delayed release capsule 2012-12-04 15:13 :17 Yes 30 mg, 1 cap, PO, Daily, 30 cap, Substitution Allowed [facility] Acetaminophen With Codeine (Tylenol With Codeine #3 Ta blet) 1 Each TABLET Acetaminophen With Codeine (Tylenol With Codeine #3 Tablet) 1 Each TABLET Yes 300 as needed for Mild Pain (1-3) Or Fever>1 00.8 [facility] Amlodipine/Valsartan Amlodipine/Valsartan Yes Daily [facility] Atorvastatin Calcium (Lipitor) 20 Mg TABLET Atorvastat in Calcium (Lipitor) 20 Mg TABLET Yes 20 Daily [facility] Yes 10 Daily [facility] Gluc 2KCL/Chondr/Darrel Hy/Hy Ac (Glucosamine & Chondroi tin Cap) 1 Each CAPSULE Gluc 2KCL/Chondr/Darrel Hy/Hy Ac (Glucosamine & Chondroitin Cap) 1 Each CAPSULE Yes [facility] Meclizine Hcl Meclizine Hcl Yes 25 As Needed [facility] Meloxicam Meloxicam Yes 15 Daily [facility] Metformin Hcl (Metformin Hcl Er) 500 Mg TAB.ER.24 Metf ormin Hcl (Metformin Hcl Er) 500 Mg TAB.ER.24 Yes 1 Bedtime [facility] Nebivolol Hcl (Bystolic) 10 Mg TABLET Nebivolol Hcl (Bystolic) 10 M g TABLET Yes 20 Daily [facility] Pantoprazole Sodium (Protonix) 40 Mg TABLET. Pantopr azole Sodium (Protonix) 40 Mg TABLET. Yes 40 Daily [facility] Triamterene/Hydrochlorothiazid (Triamterene-Hctz 37.5- 25 Mg Cp) 1 Each CAPSULE Triamterene/Hydrochlorothiazid (Triamterene-Hctz 37.5-25 Mg Cp) 1 Each CAPSULE Yes 37.5 Daily [facility] Vitamin B Complex & Vit C No.4 (Super B Complex) 150 M g TABLET Vitamin B Complex & Vit C No.4 (Super B Complex) 150 Mg TABLET Yes [facility] Levofloxacin (Levaquin) 500 Mg TABLET Levofloxacin (Levaquin) 50 0 Mg TABLET 2019-03-17 00:00:00 No 500 Daily [facility] Amlodipine Besylate Amlodipine Besylate 2019-02-16 00:00:00 No 1 Daily [facility] Amlodipine-Valsartan Amlodipine-Valsartan 2019-02-16 00:00:00 No Daily [facility] Levofloxacin (Levaquin) 500 Mg TABLET Levofloxacin (Levaquin) 50 0 Mg TABLET 2018-09-17 00:00:00 No 500 Daily [facility] Meclizine Hcl Meclizine Hcl 2018-09-17 00:00:00 No 25 As Needed [facility] Cephalexin Cephalexin 2018-09-01 00:00:00 No 500 Thr ee Times A Day [facility] Insulin Detemir (Levemir) 100 Unit/1 Ml VIAL Insulin D etemir (Levemir) 100 Unit/1 Ml VIAL 2018-09-01 00:00:00 No 5 Bedtime [facility] Amlodipine/Valsartan (Exforge 5-320 Mg Tablet) 1 Each TABLET Amlodipine/Valsartan (Exforge 5-320 Mg Tablet) 1 Each TABLET 2018-08-13 00:00:00 No [facility] Aspirin Aspirin 2018-08-13 00:00:00 No 81 Daily [facility] Farxiga Farxiga 2018-08-13 00:00:00 No [facility] Meclizine Hcl Meclizine Hcl 2018-08-13 00:00:00 No 25 Three Times A Day as needed for Dizziness [facility] Metformin Hcl Metformin Hcl 2018-08-13 00:00:00 No 500 Bedtime [facility] Pantoprazole Sodium (Protonix) 40 Mg TABLET. Pantopr azole Sodium (Protonix) 40 Mg TABLET. 2018-08-13 00:00:00 No 40 Daily [facility] Triamterene/Hydrochlorothiazid (Triamterene-Hctz 37.5- 25 Mg Cp) 1 Each CAPSULE Triamterene/Hydrochlorothiazid (Triamterene-Hctz 37.5-25 Mg Cp) 1 Each CAPSULE 2018-08-13 00:00:00 No 1 Daily [facility] Amlodipine Besylate Amlodipine Besylate 2017-09-01 00:00:00 No 5 Daily [facility] Dapagliflozin Dapagliflozin 2017-09-01 00:00:00 No 10 Daily [facility] Levofloxacin (Levaquin) 500 Mg TABLET Levofloxacin (Levaquin) 50 0 Mg TABLET 2017-09-01 00:00:00 No 500 Daily [facility] Invokana Invokana 2017-07-08 00:00:00 No 300 Daily [facility] Lansoprazole Lansoprazole 2017-07-08 00:00:00 No 30 Daily [facility] Valsartan (Diovan) 80 Mg TAB Valsartan (Diovan) 80 Mg TAB 2017-07-08 00:00:00 No 320 Daily [facility] Furosemide (Lasix) 40 Mg TABLET Furosemide (Lasix) 40 Mg TABLET 2015-07-06 00:00:00 No 40 Daily as needed [facility] Vital Signs Vital Name Observation Time Observation Value Comments Source Weight 2019-08-11 09:51:00 400 [lb_av] [facility] BMI (Body Mass Index) 2019-08-11 09:51:00 55.8 kg/m2 [facility] Body Temperature 2019-03-19 06:26:00 98.5 [degF] [facility] Systolic (mm Hg) 2018-03-19 16:30:00 [facility] Diastolic (mm Hg) 2018-03-19 16:30:00 [facility] Systolic (mm Hg) 2018-03-19 15:45:00 [facility] [place] Diastolic (mm Hg) 2018-03-19 15:45:00 [facility] Systolic (mm Hg) 2018-03-19 15:30:00 Misael rial [place] Diastolic (mm Hg) 2018-03-19 15:30:00 [facility] Respitory Rate 2018-03-19 15:30:00 [facility] Respitory Rate 2018-03-19 15:15:00 [facility] Respitory Rate 2018-03-19 15:00:00 [facility] Heart Rate 2018-03-19 14:51:00 [facility] [place] Heart Rate 2018-03-19 12:57:00 [facility] Temperature Oral (F) 2018-03-13 22:00:00 97.9 F [facility] Heart Rate 2018-03-13 22:00:00 [facility] Height 2018-03-13 21:50:00 182.88 cm [facility] Weight 2018-03-13 21:50:00 [facility] [place] BMI Calculated 2018-03-13 21:50:00 [facility] Systolic (mm Hg) 2012-12-11 19:38:00 Misael rial [place] Diastolic (mm Hg) 2012-12-11 19:38:00 [facility] Diastolic (mm Hg) 2012-12-11 19:15:00 Mem [facility] [place] Systolic (mm Hg) 2012-12-11 19:15:00 [facility]ael [facility] Respitory Rate 2012-12-11 19:15:00 [facility] Systolic (mm Hg) 2012-12-11 19:00:00 Misael [facility] Diastolic (mm Hg) 2012-12-11 19:00:00 Mem orial [place] Respitory Rate 2012-12-11 19:00:00 [facility] Respitory Rate 2012-12-11 18:45:00 [facility] Heart Rate 2012-12-11 15:30:00 [facility] [place] Temperature Oral (F) 2012-12-09 18:48:00 98.3 F [facility] Heart Rate 2012-12-09 18:48:00 [facility] Height 2012-12-09 18:31:00 177.8 cm [facility] [place] Weight 2012-12-09 18:31:00 [facility] Diastolic (mm Hg) 2012-12-04 19:00:00 Mem orial [place] Systolic (mm Hg) 2012-12-04 19:00:00 Misael rial [place] Respitory Rate 2012-12-04 18:45:00 [facility] Systolic (mm Hg) 2012-12-04 18:45:00 [facility] Diastolic (mm Hg) 2012-12-04 18:45:00 Mem o[facility] [place] Systolic (mm Hg) 2012-12-04 18:30:00 Misael [facility] Diastolic (mm Hg) 2012-12-04 18:30:00 Mem orial [place] Respitory Rate 2012-12-04 18:30:00 Memori al [place] Respitory Rate 2012-12-04 18:15:00 [facility] Heart Rate 2012-12-04 14:51:00 [facility] Temperature Oral (F) 2012-12-04 14:51:00 98.3 F [facility] Weight 2012-12-04 14:48:00 [facility] Height 2012-12-04 14:48:00 177.8 cm [facility] Procedures Procedure Date / Time Performed Performing Clinician Rudy e CT of abdomen and pelvis without contrast 2019-08-11 00:00:00 [facility] X-ray of chest, single view 2019-08-11 00:00:[address] [facility] [address] of abdomen and pelvis without contrast 2019-04-01 00:00:00 [facility] CYSTOURETERO W/LITHOTRIPSY 2019-03-19 00:00:00 [facility] DILATION OF RIGHT URETER WITH INTRALUMINAL DEVICE, ENDO 00:00:00 [facility] DILATION OF LEFT URETER, ENDO 2019-02-17 00:00:00 [facility] FLUOROSCOPY OF KIDNEY, URETER & BLADDER USING L OSM CO NTRAST 2019-02-17 00:00:00 [facility] CT of abdomen and pelvis without contrast 2019-02-16 00:00:00 [facility] Injection procedure for shoulder arthrog bakari or enhanced CT/MRI shoulder arthrography 2018-02-12 16:39:22 [facility] Cystourethroscopy, with insertion of ind welling ureteral stent (eg, De Leon or double-J type) 2012-12-11 05:00:00 [facility] Cystourethroscopy, with ureteroscopy and /or pyeloscopy; with removal or manipulation of calculus (ureteral catheterization is included) 2012-12-11 05:00:00 [facility] Transurethral Removal of Obstruction from Ureter and R enal Pelvis 2012-12-11 05:00:00 [facility] Ureteral Catheterization 2012-12-11 05:00:00 [facility] Shoulder joint operations<sup>1</sup> 2010-03-10 00:00:00 [facility] 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 2007-03-10 00:00:00 [facility] [place] Stent placement [facility] [place] Ablation [facility] Cardiac catheterization [facility] Cholecystectomy [facility] 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 <sup>1</sup> [facility] Lithotripsy [facility] [place] 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 [facility] Ablation [facility] [place] Arthroplasty of knee [facility] Cardiac catheterization [facility] [place] Cholecystectomy [facility] [place] 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<sup>2</sup> [facility] Lithotripsy [facility] Stent placement [facility] Plan of Care Planned Activity Planned Date Details Comments Source Future Scheduled Test 2019-12-09 00:00:00 INFLUENZA VACCINE [code = INFLUENZA VACCINE] [facility] Scheduled Test 2013 00:00:00 COLONOSCOPY SCREEN ING [code = COLONOSCOPY SCREENING] [facility] Scheduled Test 2013 00:00:00 SHINGLES VACCINES (#1) [code = SHINGLES VACCINES (#1)] [facility] Scheduled Test 1973 00:00:00 DIABETIC FOOT EXAM [code = DIABETIC FOOT EXAM] [facility] Scheduled Test 1973 00:00:00 URINE MICROALBUMIN [code = URINE MICROALBUMIN] [facility] Scheduled Test 1963 00:00:00 DIABETIC RETINAL E YE EXAM [code = DIABETIC RETINAL EYE EXAM] [facility] Instructions Urinary Tract Infection - Men [facility] Encounters Start Date/Time End Date/Time Encounter Type Admission Type Attendi [facility] Care Department Encounter ID Source 2019-08-11 09:32:00 2019-08-11 14:20:00 Departed Emergency Room 1 NATHAN SALDAÑA [facility] [id number] [facility] 2019-08-05 14:43:00 2019-08-05 14:43:00 Registered Clinic 3 CARLOS [facility] [id number] [facility] 2019-04-01 09:21:00 2019-04-01 13:29:00 Departed Emergency Room 1 CHARI EPPS [facility] [id number] [facility] 2019-03-20 18:13:00 2019-03-20 21:51:00 Departed Emergency Room 1 NAVARRO CHONG [facility] [id number] [facility] - Patients [facility] 2019-03-19 04:16:00 2019-03-19 04:16:00 Registered Surgical Day Care [facility] [id number] [facility] Patients [facility] 2019-02-16 13:33:00 2019-02-18 11:05:00 Discharged Inpatient 1 DOMENIC CHAPMAN [facility] [id number] [facility] 2019-02-15 09:11:00 2019-02-15 09:11:00 [facility]istered [facility] [id number] [facility]. Sarah [facility] 2018-11-27 10:33:00 2018-11-27 10:33:00 Registered Clinic 3 [facility] [id number] [facility] 2018-09-18 08:22:00 2018-09-18 08:22:00 Registered Surgical Day Care [facility] [id number] [facility]. [facility] 2018-09-01 22:28:00 2018-09-03 13:50:00 Discharged Inpatient 1 LIVAN CASTANEDA [facility] [id number] [facility] 2018-09-01 07:43:00 2018-09-01 07:43:00 Registered Surgical Day Car e 3 [facility] [id number] [facility] 2018-08-18 05:00:00 2018-08-18 05:00:00 Registered Surgical Day Car e 3 [facility] [id number] [facility] 2018-07-24 00:25:00 2018-07-24 00:50:00 Departed Emergency Room [facility] [id number] [facility] 2018-05-07 08:00:00 2018-06-05 23:59:00 Outpatient Oliverio Wyatt [id number] 2018-04-07 15:40:00 2018-05-06 23:59:00 Outpatient Oliverio Wyatt [id number] 2018-03-19 06:00:00 2018-03-19 10:46:00 Outpatient Oswald WyattSE MHSE [id number] 2018-02-12 09:10:00 2018-02-12 23:59:00 Outpatient Adrián Wyatt MHOIH MHOIH [id number] 2018-01-06 05:04:00 2018-01-06 05:04:00 Registered Surgical Day Car CARLOS Jane [facility] [id number] [facility] 2017-07-09 12:16:00 2017-07-10 12:02:00 Discharged Inpatient ER GISELA CARABALLO [facility] [id number] [facility] 2015-06-16 12:20:00 2015-06-16 23:59:00 Outpatient Bjorn Guerrero MHHOIP MHHOIP [id number] Results Test Description Test Time Test Comments Results Result Comments Source CXR 2 VIEW - HOPD 2019-11-02 20:59:00 [place] [address] Patient Name: ZAYNAB FLORES MR #: [id number] : 1965 Age/Sex: 54/M Req #: [id number] Adm Physician: Ordered by: CHRYSTAL BOCANEGRA Report #: [id number] Location: [facility] Room/Bed: Procedure: [id number] HOPD/CXR 2 VIEW - HOPD Exam Date: 11/02/19 Exam Time: 2019 REPORT STATUS: Signed EXAMINATION: CXR 2 VIEW - HOPD INDICATION: Fever. COMPARISON: None FINDINGS: TUBES and LINES: None. LUNGS: Normal lung volumes. Lungs are clear. No consolidations. PLEURA: No pleural effusion or pneumothorax. HEART AN D MEDIASTINUM: The cardiomediastinal silhouette is unremarkable. BONES AND SOFT TISSUES: No acute osseous lesion. Soft tissues are unremarkable. UPPER ABDOMEN: No free air under the diaphragm. IMPRESSION: No acute thoracic radiographic abnormality. Signed by: Clayton Moreno MD on 11/02/2019 9:00 PM Dictated By: CLAYTON MORENO MD 99 Transcribed By: MICHEAL on 11/02/192099 COPY TO: CHRYSTAL BOCANEGRA CT ABDOMEN/PELVIS 2019-08-11 11:36:00 [place] [address] Patient Name: ZAYNAB FLORES MR #: [id number] : 1965 Age/Sex: 54/M Req #: [id number] Adm Physician: Ordered by: NATHAN SALDAÑA MD Report #: [id number] Location: ER Room/Bed: Procedure: [id number] CT/CT ABDOMEN/PELVIS WO Exam Date: 08/11/19 Exam Time: 1030 REPORT STATUS: Signed EXAM: CT Abdomen and Pelvis WITHOUT intravenous contrast INDICATION: Abdominal pain, flank pain COMPARISON: CT abdomen and pelvis of 04/01/2019 TECHNIQUE: Abdomen and pelvis were scanned utilizing a multidetector helical scanner from the lung ba se to the pubic symphysis without administration of IV contrast. Coronal and sagittal reformations were obtained. IV CONTRAST: None ORAL CONTRAST: None COMPLICATIONS: None RADIATION DOSE: Total DLP: 1500 mGy*cm Dose modulation, iterative reconstruction, and/or weight based adjustment of the mA/kV was utilized to reduce the radiation dose to as low as reasonably achievable. FINDINGS: LOWER THORAX: Normal. HEPATOBILIARY: No focal liver lesion. Status post cholecystectomy. SPLEEN: No splenomegaly. PANCREAS: No focal masses or ductal dilatation. ADRENALS: No adrenal nodules. KIDNEYS/URETERS: Multiple left lower pole nonobstructive renal calculi measure up to 8 mm. Right lower pole nonobstructive renal calculus measures up to 8 mm. No hydronephrosis or hydroureter. The previously seen left mid ureteral calculus is no longer visualized. PELVIC ORGANS/BLADDER: Unremarkable. PERITONEUM / RETROPERITONEUM: No free air or fluid. LYMPH NODES: No lymphadenopathy. VESSELS: Minimal scattered atherosclerotic calcifications of the nonaneurysmal abdominal aorta. GI TRACT: No abnormal bowel thickening. No bowel o bstruction. Normal appendix. BONES AND SOFT TISSUES: No acute osseous injury. No suspicious lytic or blastic lesions. Degenerative changes of the visualized spine, most notably at L3-4. IMPRESSION: Bilateral nonobstructive renal calculi as above. No hydronephrosis or hydroureter. Previously seen left mid ureteral calculus is no longer visualized. Signed by: Melissa Quan MD on 08/11/2019 11:52 AM Dictated By: MELISSA QUAN MD 1152 Transcribed By: MICHEAL on 08/11/19 1152 COPY TO: NATHAN SALDAÑA MD CHEST SINGLE (NOT PORTABLE) 2019-08-11 11:32:00 [facility] [address] [place] [address] Patient Name: ZAYNAB FLORES MR #: [id number] : 1965 Age/Sex: 54/M Req #: [id number] Adm Physician: Ordered by: NATHAN SALDAÑA MD Report #: [id number] Location: ER Room/Bed: Procedure: [id number] DX/CHEST SINGLE (NOT PORTABLE) Exam Date: 08/11/19 Exam Time: 1030 REPORT STATUS: Signed EXAMINATION: CHEST SINGLE (NOT PORTABLE) INDICATION: Abdominal pain COMPARISON: None FINDINGS: LINES/TUBES:None LUNGS:The lungs are well-inflated. No focal consolidation or pulmonary edema. PLEURA:No pleural effusion or pneumothorax. MEDIASTINUM:The cardiomediastinal silhouette appears normal in size and shape. BONES/SOFT TISSUES:No acute osseous injury. ABDOMEN:No free air under the diaphragm. IMPRESSION: No focal pneumonia or pulmonary edema. Signed by: Melissa Quan MD on 08/11/2019 11:32 AM Dictated By: MELISSA QUAN MD 1132 Transcribed By: MICHEAL on 08/11/19 1132 COPY TO: NATHAN SALDAÑA MD Blood leukocytes automated count (number/volume) 2019-08-11 09:58:00 Test Item White Blood Count (test code = 6690-2) 8.96 4.8-10.8 [facility] (number/volume)2019-08-11 09:58:00* Test Item Value Reference Range Interpretation Comments Red Blood Count (test code = 789-8) 5.25 4.3-5.7 [facility] measurement (moles/volume)2019-08-11 09:58:00* Test Item Value Reference Range Interpretation Comments Hemoglobin (test code = 25890-6) 13.8 14.0-18.0 [facility] hematocrit (volume fraction)2019-08-11 09:58:00* Test Item Value Reference Range Interpretation Comments Hematocrit (test code = 4544-3) 44.5 38.2-49.6 [facility] eryth[facility] mean corpuscular [id number] 09:58:00* Test Item Value Reference Range Interpretation Comments Mean Corpuscular Volume (test code = 787-2) 84.8 81-99 [facility] mean corpuscular hemoglobin (mass per erythrocyte)2019-08-11 09:58:00* Test Item Value Reference Range Interpretation Comments Mean Corpuscular Hemoglobin (test code = 785-6) 26.3 28-32 [facility] mean corpuscular hemoglobin concentration measurement (mass/volume)2019-08-11 09:58:00* Test Item Value Reference Range Interpretation Comments Mean Corpuscular Hemoglobin Concent (test code = 786-4) 31.0 31-35 [facility] [id number] 09:58:00* Test Item Value Reference Range Interpretation Comments Red Cell Distribution Width (test code = 99667-2) 15.2 11.7 -14.4 [facility] platelet count (count/volume)2019-08-11 09:58:00* Test Item Value Reference Range Interpretation Comments Platelet Count (test code = 777-3) 283 140-360 [facility] neutrophil count as percentage of total [id number] 09:58:00* Test Item Value Reference Range Interpretation Comments Neutrophils (%) (Auto) (test code = 02241-2) 65.7 38.7-80.0 [facility] lymphocyte count as percentage ot total [id number] 09:58:00* Test Item Value Reference Range Interpretation Comments Lymphocytes (%) (Auto) (test code = 736-9) 22.0 18.0-39.1 [facility] monocyte count as percentage of total [id number] 09:58:00* Test Item Value Reference Range Interpretation Comments Monocytes (%) (Auto) (test code = 5905-5) 8.1 4.4-11.3 [facility] HospitalAutomated blood eosinophil count as percentage of total mjlgoosvup3979-16-89 09:58:00* Test Item Value Reference Range Interpretation Comments Eosinophils (%) (Auto) (test code = 713-8) 3.6 0.0-6.0 [facility] HospitalAutomated blood basophil count as percentage of total sqcqogaynp7003-79-55 09:58:00* Test Item Value Reference Range Interpretation Comments Basophils (%) (Auto) (test code = 706-2) 0.3 0.0-1.0 [facility] HospitalFluoroscopic procedure less than one hour nyhlqjhy3894-58-97 09:58:00* Test Item Value Reference Range Interpretation Comments IM GRANULOCYTES % (test code = IM GRANULOCYTES %) 0.3 0.0- 1.0 [facility] HospitalAutomated blood neutrophil count 2019-08-11 09:58:00* Test Item Value Reference Range Interpretation Comments Neutrophils # (Auto) (test code = 751-8) 5.9 2.1-6.9 [facility] HospitalBlood lymphocytes count (number/volume) 2019-08-11 09:58:00* Test Item Value Reference Range Interpretation Comments Lymphocytes # (Auto) (test code = 89574-0) 2.0 1.0-3.2 [facility] HospitalBlood monocytes automated count (number/volume)2019-08-11 09:58:00* Test Item Value Reference Range Interpretation Comments Monocytes # (Auto) (test code = 742-7) 0.7 0.2-0.8 [facility] HospitalAutomated blood eosinophil count 2019-08-11 09:58:00* Test Item Value Reference Range Interpretation Comments Eosinophils # (Auto) (test code = 711-2) 0.3 0.0-0.4 [facility] HospitalAutomated blood basophil count (count/volume)2019-08-11 09:58:00* Test Item Value Reference Range Interpretation Comments Basophils # (Auto) (test code = 704-7) 0.0 0.0-0.1 [facility] HospitalFluoroscopic procedure less than one hour nesvlipc7844-47-30 09:58:00* Test Item Value Reference Range Interpretation Comments Absolute Immature Granulocyte (auto (chel t code = Absolute Immature Granulocyte (auto) 0.03 0-0.1 [facility] HospitalProthrombin time (PT) in platelet poor plasma by coagulation sbizw4040-46-57 09:58:00* Test Item Value Reference Range Interpretation Comments Prothrombin Time (test code = 5902-2) 12.2 11.9-14.5 [facility] HospitalINR in Platelet poor plasma by Coagulation nxskw2640-08-57 09:58:00* Test Item Value Reference Range Interpretation Comments Prothromb Time International Ratio (test code = 6301-6) 0.86 Oral Anticoagulant Therapy INR Values:1. Low Intensity Therapy 1.5 - 2.02 . Moderate Intensity Therapy 2.0 - 3.03. High Intensity Therapy(1) 2.5 - 3. 54. High Intensity Therapy(2) 3.0 - 4.05. Panic Value INR > 5.0 [facility] HospitalActivated partial thromboplastin time (aPTT) in platelet poor plasma by coagulation adjgl8242-41-09 09:58:00* Test Item Value Reference Range Interpretation Comments Activated Partial Thromboplast Time (test code = 91633-8) 31.2 23.8-35.5 [facility] HospitalUrine color dpizcvjwcyjfi0525-32-22 09:58:00* Test Item Value Reference Range Interpretation Comments Urine Color (test code = 5778-6) YELLOW YELLOW [facility] HospitalUrine vfmvury9460-45-49 09:58:00* Test Item Value Reference Range Interpretation Comments Urine Clarity (test code = 36461-0) CLOUDY CLEAR [facility] gravity of Urine by Test strip 2019-08-11 09:58:00* Test Item Value Reference Range Interpretation Comments Urine Specific Excello (test code = 5811-5) 1.020 1.010-1.02 5 [facility] HospitalUrine pH measurement by automated test xfexf7505-55-38 09:58:00* Test Item Value Reference Range Interpretation Comments Urine pH (test code = 53961-6) 5.5 5-7 [facility] HospitalUrine leukocyte esterase detection by ovtbtjoc4194-29-41 09:58:00* Test Item Value Reference Range Interpretation Comments Urine Leukocyte Esterase (test code = 5799-2) MODERATE NEGATIVE [facility] HospitalUrine nitrite rgsphwvrq4659-44-99 09:58:00* Test Item Value Reference Range Interpretation Comments Urine Nitrite (test code = 03802-8) NEGATIVE NEGATIVE [facility] HospitalUrine protein measurement by test strip (mass/volume)2019-08-11 09:58:00* Test Item Value Reference Range Interpretation Comments Urine Protein (test code = 5804-0) 2+ NEGATIVE [facility] HospitalUrine glucose rrlnusoce6585-25-25 09:58:00* Test Item Value Reference Range Interpretation Comments Urine Glucose (UA) (test code = 2349-9) 2+ NEGATIVE [facility] HospitalUrine ketones detection by automated test urvag2241-93-04 09:58:00* Test Item Value Reference Range Interpretation Comments Urine Ketones (test code = 08935-7) NEGATIVE NEGATIVE [facility] HospitalUrine urobilinogen measurement by test strip (mass/volume)2019-08-11 09:58:00* Test Item Value Reference Range Interpretation Comments Urine Urobilinogen (test code = 88083-2) 0.2 0.2-1 [facility] HospitalUrine total bilirubin measurement (mass/volume)2019-08-11 09:58:00* Test Item Value Reference Range Interpretation Comments Urine Bilirubin (test code = 1978-6) NEGATIVE NEGATIVE [facility] HospitalUrine erythrocytes tbkwycrph4797-16-91 09:58:00* Test Item Value Reference Range Interpretation Comments Urine Blood (test code = 12798-5) MODERATE NEGATIVE [facility] HospitalAutomated urine sediment leukocyte count by microscopy (number/high power field)2019-08-11 09:58:00* Test Item Value Reference Range Interpretation Comments Urine WBC (test code = 5821-4) 21-50 0-5 [facility] HospitalErythrocytes detection in urine sediment by light zlzzcujzpn7400-89-45 09:58:00* Test Item Value Reference Range Interpretation Comments Urine RBC (test code = 09202-3) >50 0-5 [facility] HospitalBacteria detection in urine sediment by light njlsaqduru2785-68-82 09:58:00* Test Item Value Reference Range Interpretation Comments Urine Bacteria (test code = 09666-4) FEW NONE [facility] HospitalEpithelial cells detection in urine sediment by light cniijzhplb2746-00-07 09:58:00* Test Item Value Reference Range Interpretation Comments Urine Epithelial Cells (test code = 72528-4) FEW NONE [facility] or plasma sodium measurement (moles/volume)2019-08-11 09:58:00* Test Item Value Reference Range Interpretation Comments Sodium Level (test code = 2951-2) 142 136-145 [facility] or plasma potassium measurement (moles/volume)2019-08-11 09:58:00* Test Item Value Reference Range Interpretation Comments Potassium Level (test code = 2823-3) 3.6 3.5-5.1 [facility] [place] or plasma chloride measurement (moles/volume)2019-08-11 09:58:00* Test Item Value Reference Range Interpretation Comments Chloride Level (test code = 2075-0) 105 98-107 [facility] [place] or plasma carbon dioxide, total measurement (moles/volume)2019-08-11 09:58:00* Test Item Value Reference Range Interpretation Comments Carbon Dioxide Level (test code = 2028-9) 24 22-29 [facility] or plasma anion eci4726-68-44 09:58:00* Test Item Value Reference Range Interpretation Comments Anion Gap (test code = 91635-6) 16.6 8-16 [facility] [place] or plasma urea nitrogen measurement (mass/volume)2019-08-11 09:58:00* Test Item Value Reference Range Interpretation Comments Blood Urea Nitrogen (test code = 3094-0) 19 - [facility] [place] or plasma creatinine measurement (mass/volume)2019-08-11 09:58:00* Test Item Value Reference Range Interpretation Comments Creatinine (test code = 2160-0) 1.66 0.72-1.25 [facility] [place] or plasma urea nitrogen/creatinine mass zvhel6495-08-69 09:58:00* Test Item Value Reference Range Interpretation Comments BUN/Creatinine Ratio (test code = 3097-3) 11 09-01 [facility] HospitalEstimated glomerular filtration rate (GFR) kvznuzogcqbed6746-85-77 09:58:00* Test Item Value Reference Range Interpretation Comments Estimat Glomerular Filtration Rate (test code = 558576229) 43 >60 Ranges were taken from the National Kidney Disease Education Program and the [facility] literature.Reference ranges:60 or greater: Ulovnm12-27 ( for 3 consecutive months): Chronic kidney disease 15 or less: Kidney failureMethodist Children's HospitalGlucose rulfumvibye6772-52-23 09:58:00* Test Item Value Reference Range Interpretation Comments Glucose Level (test code = GIX2725) 140 74-118 [facility] or plasma calcium measurement (mass/volume)2019-08-11 09:58:00* Test Item Value Reference Range Interpretation Comments Calcium Level (test code = 05574-7) 10.0 8.4-10.2 [facility] or plasma magnesium measurement (mass/volume)2019-08-11 09:58:00* Test Item Value Reference Range Interpretation Comments Magnesium Level (test code = 87704-0) 1.8 1.3-2.1 [facility] or plasma total bilirubin measurement (mass/volume)2019-08-11 09:58:00* Test Item Value Reference Range Interpretation Comments Total Bilirubin (test code = 1975-2) 0.9 0.2-1.2 [facility] HospitalFluoroscopic procedure less than one hour ufkhzthf8615-80-72 09:58:00* Test Item Value Reference Range Interpretation Comments Aspartate Amino Transf (AST/SGOT) (test code = Aspartate Amino Transf (AST/SGOT)) 18 5-34 [facility] or plasma alanine aminotransferase measurement (enzymatic activity/volume)2019-08-11 09:58:00* Test Item Value Reference Range Interpretation Comments Alanine Aminotransferase (ALT/SGPT) (test code = 1742-6) 19 0-55 [facility] or plasma protein measurement (mass/volume)2019-08-11 09:58:00* Test Item Value Reference Range Interpretation Comments Total Protein (test code = 2885-2) 8.2 6.5-8.1 [facility] [place] or plasma albumin measurement (mass/volume)2019-08-11 09:58:00* Test Item Value Reference Range Interpretation Comments Albumin (test code = 1751-7) 4.3 3.5-5.0 [facility] HospitalPlasma globulin measurement (mass/volume) 2019-08-11 09:58:00* Test Item Value Reference Range Interpretation Comments Globulin (test code = 78203-5) 3.9 2.3-3.5 [facility] or plasma albumin/globulin mass nqguf9757-75-35 09:58:00* Test Item Value Reference Range Interpretation Comments Albumin/Globulin Ratio (test code = 1759-0) 1.1 0.8-2.0 [facility] or plasma alkaline phosphatase measurement (enzymatic activity/volume)2019-08-11 09:58:00* Test Item Value Reference Range Interpretation Comments Alkaline Phosphatase (test code = 6768-6) 94 40-150 [facility] HospitalBNP Mhz-oLsm5588-76-03 09:58:00* Test Item Value Reference Range Interpretation Comments B-Type Natriuretic Peptide (test code = 99587-6) 13.1 0-100 [facility] or plasma creatine kinase measurement (enzymatic activity/volume)2019-08-11 09:58:00* Test Item Value Reference Range Interpretation Comments Creatine Kinase (test code = 2157-6) 99 30-200 [facility] or plasma creatine kinase MB measurement (mass/volume)2019-08-11 09:58:00* Test Item Value Reference Range Interpretation Comments Creatine Kinase MB (test code = 44776-6) 1.10 0-5.0 [facility] HospitalTroponin I measurement by highly sensitive enzyme ghpmfidbvri4511-09-42 09:58:00* Test Item Value Reference Range Interpretation Comments Troponin I (test code = 40727-8) 0.008 0-0.300 [facility] or plasma lipase measurement (enzymatic activity/volume)2019-08-11 09:58:00* Test Item Value Reference Range Interpretation Comments Lipase (test code = 3040-3) 54 8-78 [facility] HospitalABDOMEN-1VIEW (KUB)2019-08-05 15:22:00 [place] [address] Patient Name: ZAYNAB FLORES MR #: [id number] : 1965 Age/Sex: 54/M Req #: [id number] Adm Physician: Ordered by: CARLOS COX MD Report #: [id number] Location: [facility] Room/Bed: Procedure: [id number] DX/ABDOMEN -1VIEW (KUB) Exam Date: 08/05/19 Exam Time: 1457 REPORT STATUS: Signed Exam: KUB - 2 views Indication: Renal calculus Comparison: KUB of 03/20/2019 Fi ndings: Previously seen right and left renal calculi on CT of 04/01/2019 are n ot well visualized on this radiograph, possibly due to overlying bowel content s. Nonobstructive bowel gas pattern. No free air. Status post cholecystectomy. Surgical clips in the right pelvis. No acute osseous injury. Impression: Previously seen right and left renal calculi from CT of 04/01/2019 are not well visualized on this radiograph, possibly due to overlying bowel contents. Signed by: Melissa Quan MD on 08/05/2019 3:24 PM Dictated By: MELISSA QUAN MD 1524 Transcribed By: PEGGY BARNES on 08/05/19 1524 COPY TO: CARLOS COX MD Sodium Level 2019-04-01 12:59:00* Test Item Value Reference Range Interpretation Comments Sodium Level (test code = 2951-2) 137 136-145 [facility] HospitalPotassium Nwltw7391-32-04 12:59:00* Test Item Value Reference Range Interpretation Comments Potassium Level (test code = 2823-3) 3.6 3.5-5.1 [facility] HospitalChloride Ammbw4078-65-82 12:59:00* Test Item Value Reference Range Interpretation Comments Chloride Level (test code = 2075-0) 101 98-107 [facility] HospitalCarbon Dioxide Wvvst9912-00-67 12:59:00* Test Item Value Reference Range Interpretation Comments Carbon Dioxide Level (test code = 2028-9) 21 22-29 L [facility] HospitalAnion Yjs1686-57-97 12:59:00* Test Item Value Reference Range Interpretation Comments Anion Gap (test code = 13717-9) 18.6 8-16 H [facility] HospitalBlood Urea Tzgflbvi0128-75-96 12:59:00* Test Item Value Reference Range Interpretation Comments Blood Urea Nitrogen (test code = 3094-0) 26 7-26 [facility] HospitalCreatinine2020-01-23 12:59:00* Test Item Value Reference Range Interpretation Comments Creatinine (test code = 2160-0) 1.60 0.72-1.25 H [facility] HospitalBUN/Creatinine Omwgq2562-84-14 12:59:00* Test Item Value Reference Range Interpretation Comments BUN/Creatinine Ratio (test code = 3097-3) 16 6-25 [facility] HospitalEstimat Glomerular Filtration Rate 2019-04-01 12:59:00* Test Item Value Reference Range Interpretation Comments Estimat Glomerular Filtration Rate (test code = 713326652) 45 >60 L Ranges were taken from the National Kidney Disease Education Program and the [facility] literature.Reference ranges:60 or greater: Dfsljq12-07 ( for 3 consecutive months): Chronic kidney disease 15 or less: Kidney failureMethodist Children's HospitalGlucose Fwmxw6282-15-50 12:59:00* Test Item Value Reference Range Interpretation Comments Glucose Level (test code = ZHE2892) 152 74-118 H [facility] HospitalCalcium Bzxtk3365-59-80 12:59:00* Test Item Value Reference Range Interpretation Comments Calcium Level (test code = 71251-7) 10.3 8.4-10.2 H [facility] HospitalTotal Ognbwvbxx5451-57-30 12:59:00* Test Item Value Reference Range Interpretation Comments Total Bilirubin (test code = 1975-2) 1.1 0.2-1.2 [facility] HospitalAspartate Amino Transf (AST/SGOT) 2019-04-01 12:59:00* Test Item Value Reference Range Interpretation Comments Aspartate Amino Transf (AST/SGOT) (test code = Aspartate Amino Transf (AST/SGOT)) 26 5-34 [facility] HospitalAlanine Aminotransferase (ALT/SGPT) 2019-04-01 12:59:00* Test Item Value Reference Range Interpretation Comments Alanine Aminotransferase (ALT/SGPT) (test code = 1742-6) 31 0-55 [facility] HospitalTotal Fhnvbks8581-67-45 12:59:00* Test Item Value Reference Range Interpretation Comments Total Protein (test code = 2885-2) 8.1 6.5-8.1 [facility] HospitalAlbumin2020-01-23 12:59:00* Test Item Value Reference Range Interpretation Comments Albumin (test code = 1751-7) 4.5 3.5-5.0 [facility] HospitalGlobulin2020-01-23 12:59:00* Test Item Value Reference Range Interpretation Comments Globulin (test code = 48204-7) 3.6 2.3-3.5 H [facility] HospitalAlbumin/Globulin Ccnpm8432-00-94 12:59:00 * Test Item Value Reference Range Interpretation Comments Albumin/Globulin Ratio (test code = 1759-0) 1.3 0.8-2.0 [facility] HospitalAlkaline Wpfqycjyhqh0184-42-03 12:59:00* Test Item Value Reference Range Interpretation Comments Alkaline Phosphatase (test code = 6768-6) 92 40-150 [facility] HospitalWhite Blood Pfafp8093-99-77 12:49:00* Test Item Value Reference Range Interpretation Comments White Blood Count (test code = 6690-2) 12.29 4.8-10.8 H [facility] HospitalRed Blood Oojua8650-08-32 12:49:00* Test Item Value Reference Range Interpretation Comments Red Blood Count (test code = 789-8) 5.23 4.3-5.7 [facility] HospitalHemoglobin2020-01-23 12:49:00* Test Item Value Reference Range Interpretation Comments Hemoglobin (test code = 32340-7) 14.1 14.0-18.0 [facility] HospitalHematocrit2020-01-23 12:49:00* Test Item Value Reference Range Interpretation Comments Hematocrit (test code = 4544-3) 43.4 38.2-49.6 [facility] HospitalMean Corpuscular Mgklmx0816-46-11 12:49:00* Test Item Value Reference Range Interpretation Comments Mean Corpuscular Volume (test code = 787-2) 83.0 81-99 [facility] HospitalMean Corpuscular Mefrmusrft5405-27-81 12:49:00* Test Item Value Reference Range Interpretation Comments Mean Corpuscular Hemoglobin (test code = 785-6) 27.0 28-32 L [facility] HospitalMean Corpuscular Hemoglobin Concent 2019-04-01 12:49:00* Test Item Value Reference Range Interpretation Comments Mean Corpuscular Hemoglobin Concent (test code = 786-4) 32.5 31-35 [facility] HospitalRed Cell Distribution Xfqko0633-47-19 12:49:00* Test Item Value Reference Range Interpretation Comments Red Cell Distribution Width (test code = 09398-8) 15.4 11.7 -14.4 H [facility] HospitalPlatelet Bpymn2210-78-96 12:49:00* Test Item Value Reference Range Interpretation Comments Platelet Count (test code = 777-3) 279 140-360 [facility] HospitalNeutrophils (%) (Auto)2019-04-01 12:49:00 * Test Item Value Reference Range Interpretation Comments Neutrophils (%) (Auto) (test code = 54298-4) 68.1 38.7-80.0 [facility] HospitalLymphocytes (%) (Auto)2019-04-01 12:49:00 * Test Item Value Reference Range Interpretation Comments Lymphocytes (%) (Auto) (test code = 736-9) 22.0 18.0-39.1 [facility] HospitalMonocytes (%) (Auto)2019-04-01 12:49:00* Test Item Value Reference Range Interpretation Comments Monocytes (%) (Auto) (test code = 5905-5) 7.2 4.4-11.3 [facility] HospitalEosinophils (%) (Auto)2019-04-01 12:49:00 * Test Item Value Reference Range Interpretation Comments Eosinophils (%) (Auto) (test code = 713-8) 1.8 0.0-6.0 [facility] HospitalBasophils (%) (Auto)2019-04-01 12:49:00* Test Item Value Reference Range Interpretation Comments Basophils (%) (Auto) (test code = 706-2) 0.4 0.0-1.0 [facility] HospitalIM GRANULOCYTES %2019-04-01 12:49:00* Test Item Value Reference Range Interpretation Comments IM GRANULOCYTES % (test code = IM GRANULOCYTES %) 0.5 0.0- 1.0 [facility] HospitalNeutrophils # (Auto)2019-04-01 12:49:00* Test Item Value Reference Range Interpretation Comments Neutrophils # (Auto) (test code = 751-8) 8.4 2.1-6.9 H [facility] HospitalLymphocytes # (Auto)2019-04-01 12:49:00* Test Item Value Reference Range Interpretation Comments Lymphocytes # (Auto) (test code = 75382-9) 2.7 1.0-3.2 [facility] HospitalMonocytes # (Auto)2019-04-01 12:49:00* Test Item Value Reference Range Interpretation Comments Monocytes # (Auto) (test code = 742-7) 0.9 0.2-0.8 H [facility] HospitalEosinophils # (Auto)2019-04-01 12:49:00* Test Item Value Reference Range Interpretation Comments Eosinophils # (Auto) (test code = 711-2) 0.2 0.0-0.4 [facility] HospitalBasophils # (Auto)2019-04-01 12:49:00* Test Item Value Reference Range Interpretation Comments Basophils # (Auto) (test code = 704-7) 0.1 0.0-0.1 [facility] HospitalAbsolute Immature Granulocyte (auto 2019-04-01 12:49:00* Test Item Value Reference Range Interpretation Comments Absolute Immature Granulocyte (auto (chel t code = Absolute Immature Granulocyte (auto) 0.06 0-0.1 [facility] HospitalUrine FPP4013-36-82 12:03:00* Test Item Value Reference Range Interpretation Comments Urine WBC (test code = 5821-4) 21-50 0-5 H [facility] HospitalUrine MRA0998-88-59 12:03:00* Test Item Value Reference Range Interpretation Comments Urine RBC (test code = 02907-6) 11-20 0-5 H [facility] HospitalUrine Uszpbdbp5784-86-43 12:03:00* Test Item Value Reference Range Interpretation Comments Urine Bacteria (test code = 92107-4) MANY NONE H [facility] HospitalUrine Epithelial Pfniu8359-22-80 12:03:00 * Test Item Value Reference Range Interpretation Comments Urine Epithelial Cells (test code = 13574-8) MODERATE NONE [facility] Ppniq7409-12-36 12:03:00* Test Item Value Reference Range Interpretation Comments Urine Yeast (test code = 19749-9) MANY NONE H [facility] HospitalCT ABDOMEN/PELVIS FK5811-55-70 11:48:00 [facility] [address] [address] Patient Name: ZAYNAB FLORES MR #: [id number] : 1965 Age/Sex: 54/M Req #: [id number] Adm Physician: Ordered by: RAMAN THAKKAR NP Report #: [id number] Location: ER Room/Bed: Procedure: 17 CT/CT ABDOMEN/PELVIS WO Exam Date: 04/01/19 [...] A M Dictated By: NAVARRO RODNEY MD 1156 Transcribed By: MICHEAL on 04/01/19 1156 COPY TO: RAMAN CHICAS NP Urine Ohkvy3119-37-04 11:33:00* Test Item Value Reference Range Interpretation Comments Urine Color (test code = 5778-6) YELLOW YELLOW [facility] HospitalUrine Tcftxqc7505-73-55 11:33:00* Test Item Value Reference Range Interpretation Comments Urine Clarity (test code = 29332-8) CLOUDY CLEAR H [facility] HospitalUrine Specific Ntraxfy9659-96-16 11:33:00 * Test Item Value Reference Range Interpretation Comments Urine Specific Excello (test code = 5811-5) 1.015 1.010-1.02 5 [facility] HospitalUrine cU6679-75-94 11:33:00* Test Item Value Reference Range Interpretation Comments Urine pH (test code = 96621-8) 6 5-7 [facility] HospitalUrine Leukocyte Jgzadtit4064-35-00 11:33:00* Test Item Value Reference Range Interpretation Comments Urine Leukocyte Esterase (test code = 5799-2) SMALL NEGATIVE [facility] HospitalUrine Gopbqac0445-70-37 11:33:00* Test Item Value Reference Range Interpretation Comments Urine Nitrite (test code = 05849-2) NEGATIVE NEGATIVE [facility] HospitalUrine Ajtfxwi4165-57-56 11:33:00* Test Item Value Reference Range Interpretation Comments Urine Protein (test code = 5804-0) NEGATIVE NEGATIVE [facility] HospitalUrine Glucose (UA)2019-04-01 11:33:00* Test Item Value Reference Range Interpretation Comments Urine Glucose (UA) (test code = 2349-9) 3+ NEGATIVE [facility] HospitalUrine Mwwsqxo1266-14-35 11:33:00* Test Item Value Reference Range Interpretation Comments Urine Ketones (test code = 40713-4) NEGATIVE NEGATIVE [facility] Hpkhkygdeshh2191-39-08 11:33:00* Test Item Value Reference Range Interpretation Comments Urine Urobilinogen (test code = 16213-9) 0.2 0.2-1 [facility] HospitalUrine Fmjjdqbhp4231-16-04 11:33:00* Test Item Value Reference Range Interpretation Comments Urine Bilirubin (test code = 1978-6) NEGATIVE NEGATIVE [facility] HospitalUrine Tkhfw7619-15-01 11:33:00* Test Item Value Reference Range Interpretation Comments Urine Blood (test code = 69319-0) 1+ NEGATIVE [facility] HospitalYeast detection in urine sediment by light phemtqxnpv2176-86-54 09:30:00* Test Item Value Reference Range Interpretation Comments Urine Yeast (test code = 85822-6) MANY NONE [facility] HospitalBacterial urine jpymcut9646-99-58 09:30:00* Test Item Value Reference Range Interpretation Comments Urine Culture (test code = 630-4) MICH PARAPSILOSIS [facility] Zapro9444-86-89 21:45:00* Test Item Value Reference Range Interpretation Comments Sodium Level (test code = 2951-2) 139 136-145 [facility] HospitalPotassium Ghpxi9076-46-11 21:45:00* Test Item Value Reference Range Interpretation Comments Potassium Level (test code = 2823-3) 3.6 3.5-5.1 [facility] HospitalChloride Njqnc6864-70-93 21:45:00* Test Item Value Reference Range Interpretation Comments Chloride Level (test code = 2075-0) 104 98-107 [facility] HospitalCarbon Dioxide Duovr8838-53-47 21:45:00* Test Item Value Reference Range Interpretation Comments Carbon Dioxide Level (test code = 2028-9) 23 22-29 [facility] HospitalAnion Etg3652-30-71 21:45:00* Test Item Value Reference Range Interpretation Comments Anion Gap (test code = 02788-2) 15.6 8-16 [facility] HospitalBlood Urea Zzglpqat8497-84-12 21:45:00* Test Item Value Reference Range Interpretation Comments Blood Urea Nitrogen (test code = 3094-0) 20 7-26 [facility] HospitalCreatinine2020-01-11 21:45:00* Test Item Value Reference Range Interpretation Comments Creatinine (test code = 2160-0) 1.62 0.72-1.25 H [facility] HospitalBUN/Creatinine Icjxf7357-53-70 21:45:00* Test Item Value Reference Range Interpretation Comments BUN/Creatinine Ratio (test code = 3097-3) 12 6- [facility] HospitalEstimat Glomerular Filtration Rate 2019-03-20 21:45:00* Test Item Value Reference Range Interpretation Comments Estimat Glomerular Filtration Rate (test code = 306876461) 44 >60 L Ranges were taken from the National Kidney Disease Education Program and the [facility] literature.Reference ranges:60 or greater: Timopl42-89 ( for 3 consecutive months): Chronic kidney disease 15 or less: Kidney failureMethodist Children's HospitalGlucose Ffkar7472-43-54 21:45:00* Test Item Value Reference Range Interpretation Comments Glucose Level (test code = GLF0949) 163 74-118 H [facility] HospitalCalcium Fypnw9608-36-16 21:45:00* Test Item Value Reference Range Interpretation Comments Calcium Level (test code = 84232-8) 9.2 8.4-10.2 [facility] HospitalTotal Msfqncruh4935-80-19 21:45:00* Test Item Value Reference Range Interpretation Comments Total Bilirubin (test code = 1975-2) 0.7 0.2-1.2 [facility] HospitalAspartate Amino Transf (AST/SGOT) 2019-03-20 21:45:00* Test Item Value Reference Range Interpretation Comments Aspartate Amino Transf (AST/SGOT) (test code = Aspartate Amino Transf (AST/SGOT)) 36 5-34 H [facility] HospitalAlanine Aminotransferase (ALT/SGPT) 2019-03-20 21:45:00* Test Item Value Reference Range Interpretation Comments Alanine Aminotransferase (ALT/SGPT) (test code = 1742-6) 38 0-55 [facility] HospitalTotal Gbeacpm6207-69-00 21:45:00* Test Item Value Reference Range Interpretation Comments Total Protein (test code = 2885-2) 7.2 6.5-8.1 [facility] HospitalAlbumin2020-01-11 21:45:00* Test Item Value Reference Range Interpretation Comments Albumin (test code = 1751-7) 3.7 3.5-5.0 [facility] HospitalGlobulin2020-01-11 21:45:00* Test Item Value Reference Range Interpretation Comments Globulin (test code = 57554-5) 3.5 2.3-3.5 [facility] HospitalAlbumin/Globulin Uaeup7302-01-02 21:45:00 * Test Item Value Reference Range Interpretation Comments Albumin/Globulin Ratio (test code = 1759-0) 1.1 0.8-2.0 [facility] HospitalAlkaline Dvqwudlzrhn8000-83-10 21:45:00* Test Item Value Reference Range Interpretation Comments Alkaline Phosphatase (test code = 6768-6) 81 40-150 [facility] HospitalWhite Blood Wygro5383-01-74 21:27:00* Test Item Value Reference Range Interpretation Comments White Blood Count (test code = 6690-2) 8.75 4.8-10.8 [facility] HospitalRed Blood Fpfcs3614-34-78 21:27:00* Test Item Value Reference Range Interpretation Comments Red Blood Count (test code = 789-8) 4.65 4.3-5.7 [facility] HospitalHemoglobin2020-01-11 21:27:00* Test Item Value Reference Range Interpretation Comments Hemoglobin (test code = 37865-2) 12.4 14.0-18.0 L [facility] HospitalHematocrit2020-01-11 21:27:00* Test Item Value Reference Range Interpretation Comments Hematocrit (test code = 4544-3) 39.4 38.2-49.6 [facility] HospitalMean Corpuscular Vtgkjw2969-81-19 21:27:00* Test Item Value Reference Range Interpretation Comments Mean Corpuscular Volume (test code = 787-2) 84.7 81-99 [facility] HospitalMean Corpuscular Mngxcwmrzd9050-57-95 21:27:00* Test Item Value Reference Range Interpretation Comments Mean Corpuscular Hemoglobin (test code = 785-6) 26.7 28-32 L [facility] HospitalMean Corpuscular Hemoglobin Concent 2019-03-20 21:27:00* Test Item Value Reference Range Interpretation Comments Mean Corpuscular Hemoglobin Concent (test code = 786-4) 31.5 31-35 [facility] HospitalRed Cell Distribution Bhufe5112-04-34 21:27:00* Test Item Value Reference Range Interpretation Comments Red Cell Distribution Width (test code = 50778-3) 15.8 11.7 -14.4 H [facility] HospitalPlatelet Yrscg8563-23-87 21:27:00* Test Item Value Reference Range Interpretation Comments Platelet Count (test code = 777-3) 197 140-360 [facility] HospitalNeutrophils (%) (Auto)2019-03-20 21:27:00 * Test Item Value Reference Range Interpretation Comments Neutrophils (%) (Auto) (test code = 99068-4) 73.0 38.7-80.0 [facility] HospitalLymphocytes (%) (Auto)2019-03-20 21:27:00 * Test Item Value Reference Range Interpretation Comments Lymphocytes (%) (Auto) (test code = 736-9) 12.5 18.0-39.1 L [facility] HospitalMonocytes (%) (Auto)2019-03-20 21:27:00* Test Item Value Reference Range Interpretation Comments Monocytes (%) (Auto) (test code = 5905-5) 11.8 4.4-11.3 H [facility] HospitalEosinophils (%) (Auto)2019-03-20 21:27:00 * Test Item Value Reference Range Interpretation Comments Eosinophils (%) (Auto) (test code = 713-8) 1.6 0.0-6.0 [facility] HospitalBasophils (%) (Auto)2019-03-20 21:27:00* Test Item Value Reference Range Interpretation Comments Basophils (%) (Auto) (test code = 706-2) 0.3 0.0-1.0 [facility] HospitalIM GRANULOCYTES %2019-03-20 21:27:00* Test Item Value Reference Range Interpretation Comments IM GRANULOCYTES % (test code = IM GRANULOCYTES %) 0.8 0.0- 1.0 [facility] HospitalNeutrophils # (Auto)2019-03-20 21:27:00* Test Item Value Reference Range Interpretation Comments Neutrophils # (Auto) (test code = 751-8) 6.4 2.1-6.9 [facility] HospitalLymphocytes # (Auto)2019-03-20 21:27:00* Test Item Value Reference Range Interpretation Comments Lymphocytes # (Auto) (test code = 96092-9) 1.1 1.0-3.2 [facility] HospitalMonocytes # (Auto)2019-03-20 21:27:00* Test Item Value Reference Range Interpretation Comments Monocytes # (Auto) (test code = 742-7) 1.0 0.2-0.8 H [facility] HospitalEosinophils # (Auto)2019-03-20 21:27:00* Test Item Value Reference Range Interpretation Comments Eosinophils # (Auto) (test code = 711-2) 0.1 0.0-0.4 [facility] HospitalBasophils # (Auto)2019-03-20 21:27:00* Test Item Value Reference Range Interpretation Comments Basophils # (Auto) (test code = 704-7) 0.0 0.0-0.1 [facility] HospitalAbsolute Immature Granulocyte (auto 2019-03-20 21:27:00* Test Item Value Reference Range Interpretation Comments Absolute Immature Granulocyte (auto (chel t code = Absolute Immature Granulocyte (auto) 0.07 0-0.1 [facility] HospitalUrine ZRY8670-16-40 21:25:00* Test Item Value Reference Range Interpretation Comments Urine WBC (test code = 5821-4) 21-50 0-5 H [facility] HospitalUrine DSB1823-06-00 21:25:00* Test Item Value Reference Range Interpretation Comments Urine RBC (test code = 63492-9) 21-50 0-5 H [facility] HospitalUrine Oxpntncy9341-46-96 21:25:00* Test Item Value Reference Range Interpretation Comments Urine Bacteria (test code = 95762-1) PRESENT NONE [facility] HospitalUrine Epithelial Xezta9585-10-07 21:25:00 * Test Item Value Reference Range Interpretation Comments Urine Epithelial Cells (test code = 80282-5) RARE NONE [facility] HospitalUrine Hyevl5660-86-40 21:19:00* Test Item Value Reference Range Interpretation Comments Urine Color (test code = 5778-6) YELLOW YELLOW [facility] HospitalUrine Ycgjbxo7326-42-93 21:19:00* Test Item Value Reference Range Interpretation Comments Urine Clarity (test code = 50684-8) CLOUDY CLEAR H [facility] HospitalUrine Specific Fslprbk3478-66-34 21:19:00 * Test Item Value Reference Range Interpretation Comments Urine Specific Excello (test code = 5811-5) 1.020 1.010-1.02 5 [facility] HospitalUrine pN0247-02-90 21:19:00* Test Item Value Reference Range Interpretation Comments Urine pH (test code = 92211-4) 6.5 5-7 [facility] HospitalUrine Leukocyte Zlpcqjet5864-43-04 21:19:00* Test Item Value Reference Range Interpretation Comments Urine Leukocyte Esterase (test code = 5799-2) SMALL NEGATIVE [facility] HospitalUrine Khsfgvb7578-89-75 21:19:00* Test Item Value Reference Range Interpretation Comments Urine Nitrite (test code = 78551-4) NEGATIVE NEGATIVE [facility] HospitalUrine Dtaurfo3602-40-33 21:19:00* Test Item Value Reference Range Interpretation Comments Urine Protein (test code = 5804-0) NEGATIVE NEGATIVE [facility] HospitalUrine Glucose (UA)2019-03-20 21:19:00* Test Item Value Reference Range Interpretation Comments Urine Glucose (UA) (test code = 2349-9) 3+ NEGATIVE H [facility] HospitalUrine Wexxmrt4961-97-28 21:19:00* Test Item Value Reference Range Interpretation Comments Urine Ketones (test code = 14729-9) NEGATIVE NEGATIVE [facility] HospitalUrine Cfldpudrmqqw8472-22-08 21:19:00* Test Item Value Reference Range Interpretation Comments Urine Urobilinogen (test code = 01629-5) 0.2 0.2-1 [facility] HospitalUrine Pzasgrzra2043-43-14 21:19:00* Test Item Value Reference Range Interpretation Comments Urine Bilirubin (test code = 1978-6) NEGATIVE NEGATIVE [facility] HospitalUrine Ltjxs0652-09-49 21:19:00* Test Item Value Reference Range Interpretation Comments Urine Blood (test code = 33704-3) 3+ NEGATIVE [facility] HospitalABDOMEN-1VIEW (KUB)2019-03-20 21:19:00 [facility] [address] [address] Patient Name: ZAYNAB FLORES MR #: [id number] : 1965 Age/Sex: 54/M Req #: [id number] Adm Physician: Ordered by: NAVARRO CHONG DO Report #: [id number] Location: ER Room/Bed: Procedure: 7820-6019 D X/ABDOMEN-1VIEW (KUB) Exam Date: 03/20/19 Exam [...] Transcribed By: MICHEAL on 03/20/192122 COPY TO: NAVARRO CHONG DO Bedside Posdiby0491-26-05 06:07:00* Test Item Value Reference Range Interpretation Comments Bedside Glucose (test code = 00946-8) 192 70-120 H Meter ID: [id number] [facility] 2019-[facility]-19 06:07:00* Test Item Value Reference Range Interpretation Comments Bedside Glucose (test code = 99890-1) 192 70-120 H Meter ID: [id number] [facility] CenterCapillary blood glucose measurement by glucometer (mass/volume)2019-03-19 04:38:00* Test Item Value Reference Range Interpretation Comments Bedside Glucose (test code = 40187-2) 192 70-120 Meter ID: [id number] Children's HospitalUrine Culture 2019-02-18 06:23:00* Test Item Value Reference Range Interpretation Comments Urine Culture (test code = 630-4) No Result Data Provided [facility] HospitalUrine Hlkogbb7097-68-92 06:23:00* Test Item Value Reference Range Interpretation Comments Urine Culture (test code = 630-4) No Result Data Provided [facility] HospitalUrine Hognoce4856-69-02 06:23:00* Test Item Value Reference Range Interpretation Comments Urine Culture (test code = 630-4) No Result Data Provided [facility] Xietx2476-90-13 06:22:00* Test Item Value Reference Range Interpretation Comments Sodium Level (test code = 2951-2) 136 136-145 [facility] HospitalPotassium Dzyub9418-98-43 06:22:00* Test Item Value Reference Range Interpretation Comments Potassium Level (test code = 2823-3) 3.9 3.5-5.1 [facility] HospitalChloride Zgpnf9195-63-33 06:22:00* Test Item Value Reference Range Interpretation Comments Chloride Level (test code = 2075-0) 104 98-107 [facility] HospitalCarbon Dioxide Eoujl8087-73-42 06:22:00* Test Item Value Reference Range Interpretation Comments Carbon Dioxide Level (test code = 2028-9) 21 22-29 L [facility] HospitalAnion Cih1834-16-46 06:22:00* Test Item Value Reference Range Interpretation Comments Anion Gap (test code = 15255-3) 14.9 8-16 [facility] HospitalBlood Urea Wsdcymmr7365-94-55 06:22:00* Test Item Value Reference Range Interpretation Comments Blood Urea Nitrogen (test code = 3094-0) 22 7-26 [facility] HospitalCreatinine2019-12-12 06:22:00* Test Item Value Reference Range Interpretation Comments Creatinine (test code = 2160-0) 1.72 0.72-1.25 H [facility] HospitalBUN/Creatinine Ydfyh0517-83-23 06:22:00* Test Item Value Reference Range Interpretation Comments BUN/Creatinine Ratio (test code = 3097-3) 13 6-25 [facility] HospitalEstimat Glomerular Filtration Rate 2019-02-18 06:22:00* Test Item Value Reference Range Interpretation Comments Estimat Glomerular Filtration Rate (test code = 355455705) 41 >60 L Ranges were taken from the National Kidney Disease Education Program and the [facility] Kidney Foundation literature.Reference ranges:60 or greater: Kaymbu32-37 ( for 3 consecutive months): Chronic kidney disease 15 or less: Kidney failureMethodist Children's HospitalGlucose Xzjed1835-87-36 06:22:00* Test Item Value Reference Range Interpretation Comments Glucose Level (test code = TXE0639) 188 74-118 H [facility] HospitalCalcium Egzsn2612-71-40 06:22:00* Test Item Value Reference Range Interpretation Comments Calcium Level (test code = 95912-4) 9.1 8.4-10.2 [facility] HospitalWhite Blood Uwcru0318-95-84 05:47:00* Test Item Value Reference Range Interpretation Comments White Blood Count (test code = 6690-2) 16.24 4.8-10.8 H [facility] HospitalRed Blood Asoxo1312-07-25 05:47:00* Test Item Value Reference Range Interpretation Comments Red Blood Count (test code = 789-8) 4.45 4.3-5.7 [facility] HospitalHemoglobin2019-12-12 05:47:00* Test Item Value Reference Range Interpretation Comments Hemoglobin (test code = 64632-2) 12.0 14.0-18.0 L [facility] HospitalHematocrit2019-12-12 05:47:00* Test Item Value Reference Range Interpretation Comments Hematocrit (test code = 4544-3) 38.4 38.2-49.6 [facility] HospitalMean Corpuscular Hqsvst9844-22-25 05:47:00* Test Item Value Reference Range Interpretation Comments Mean Corpuscular Volume (test code = 787-2) 86.3 81-99 [facility] HospitalMean Corpuscular Dgrcxvhdyq4762-95-90 05:47:00* Test Item Value Reference Range Interpretation Comments Mean Corpuscular Hemoglobin (test code = 785-6) 27.0 28-32 L [facility] HospitalMean Corpuscular Hemoglobin Concent 2019-02-18 05:47:00* Test Item Value Reference Range Interpretation Comments Mean Corpuscular Hemoglobin Concent (test code = 786-4) 31.3 31-35 [facility] HospitalRed Cell Distribution Hmszt5860-42-62 05:47:00* Test Item Value Reference Range Interpretation Comments Red Cell Distribution Width (test code = 64085-2) 15.0 11.7 -14.4 H [facility] HospitalPlatelet Hwywf8476-39-09 05:47:00* Test Item Value Reference Range Interpretation Comments Platelet Count (test code = 777-3) 184 140-360 [facility] HospitalNeutrophils (%) (Auto)2019-02-18 05:47:00 * Test Item Value Reference Range Interpretation Comments Neutrophils (%) (Auto) (test code = 21326-2) 84.7 38.7-80.0 H [facility] HospitalLymphocytes (%) (Auto)2019-02-18 05:47:00 * Test Item Value Reference Range Interpretation Comments Lymphocytes (%) (Auto) (test code = 736-9) 5.5 18.0-39.1 L [facility] HospitalMonocytes (%) (Auto)2019-02-18 05:47:00* Test Item Value Reference Range Interpretation Comments Monocytes (%) (Auto) (test code = 5905-5) 7.9 4.4-11.3 [facility] HospitalEosinophils (%) (Auto)2019-02-18 05:47:00 * Test Item Value Reference Range Interpretation Comments Eosinophils (%) (Auto) (test code = 713-8) 1.2 0.0-6.0 [facility] HospitalBasophils (%) (Auto)2019-02-18 05:47:00* Test Item Value Reference Range Interpretation Comments Basophils (%) (Auto) (test code = 706-2) 0.1 0.0-1.0 [facility] HospitalIM GRANULOCYTES %2019-02-18 05:47:00* Test Item Value Reference Range Interpretation Comments IM GRANULOCYTES % (test code = IM GRANULOCYTES %) 0.6 0.0- 1.0 [facility] HospitalNeutrophils # (Auto)2019-02-18 05:47:00* Test Item Value Reference Range Interpretation Comments Neutrophils # (Auto) (test code = 751-8) 13.7 2.1-6.9 H [facility] HospitalLymphocytes # (Auto)2019-02-18 05:47:00* Test Item Value Reference Range Interpretation Comments Lymphocytes # (Auto) (test code = 04096-5) 0.9 1.0-3.2 L [facility] HospitalMonocytes # (Auto)2019-02-18 05:47:00* Test Item Value Reference Range Interpretation Comments Monocytes # (Auto) (test code = 742-7) 1.3 0.2-0.8 H [facility] HospitalEosinophils # (Auto)2019-02-18 05:47:00* Test Item Value Reference Range Interpretation Comments Eosinophils # (Auto) (test code = 711-2) 0.2 0.0-0.4 [facility] HospitalBasophils # (Auto)2019-02-18 05:47:00* Test Item Value Reference Range Interpretation Comments Basophils # (Auto) (test code = 704-7) 0.0 0.0-0.1 [facility] HospitalAbsolute Immature Granulocyte (auto 2019-02-18 05:47:00* Test Item Value Reference Range Interpretation Comments Absolute Immature Granulocyte (auto (chel t code = Absolute Immature Granulocyte (auto) 0.10 0-0.1 [facility] HospitalBedside Zcobanl6788-84-72 22:52:00* Test Item Value Reference Range Interpretation Comments Bedside Glucose (test code = 20017-7) 246 70-120 H Meter ID: [id number] [facility] CenterTotal Bilirubin 2019-02-17 06:35:00* Test Item Value Reference Range Interpretation Comments Total Bilirubin (test code = 1975-2) 1.5 0.2-1.2 H [facility] HospitalAspartate Amino Transf (AST/SGOT) 2019-02-17 06:35:00* Test Item Value Reference Range Interpretation Comments Aspartate Amino Transf (AST/SGOT) (test code = Aspartate Amino Transf (AST/SGOT)) 18 5-34 [facility] HospitalAlanine Aminotransferase (ALT/SGPT) 2019-02-17 06:35:00* Test Item Value Reference Range Interpretation Comments Alanine Aminotransferase (ALT/SGPT) (test code = 1742-6) 20 0-55 [facility] HospitalTotal Ybntakp0269-01-91 06:35:00* Test Item Value Reference Range Interpretation Comments Total Protein (test code = 2885-2) 6.8 6.5-8.1 [facility] HospitalAlbumin2019-12-11 06:35:00* Test Item Value Reference Range Interpretation Comments Albumin (test code = 1751-7) 3.7 3.5-5.0 [facility] HospitalGlobulin2019-12-11 06:35:00* Test Item Value Reference Range Interpretation Comments Globulin (test code = 36485-9) 3.1 2.3-3.5 [facility] HospitalAlbumin/Globulin Khiox0515-98-69 06:35:00 * Test Item Value Reference Range Interpretation Comments Albumin/Globulin Ratio (test code = 1759-0) 1.2 0.8-2.0 [facility] HospitalAlkaline Fdjjkrmgpar3486-90-70 06:35:00* Test Item Value Reference Range Interpretation Comments Alkaline Phosphatase (test code = 6768-6) 77 40-150 [facility] HospitalUrine WYM4670-73-95 14:30:00* Test Item Value Reference Range Interpretation Comments Urine WBC (test code = 5821-4) 21-50 0-5 H [facility] HospitalUrine FSI0620-26-46 14:30:00* Test Item Value Reference Range Interpretation Comments Urine RBC (test code = 90970-4) 11-20 0-5 H [facility] HospitalUrine Svkwkozj0722-95-60 14:30:00* Test Item Value Reference Range Interpretation Comments Urine Bacteria (test code = 91294-9) RARE NONE [facility] Epithelial Mupak4105-57-71 14:30:00 * Test Item Value Reference Range Interpretation Comments Urine Epithelial Cells (test code = 18458-7) NONE NONE [facility] HospitalUrine Guuya9841-83-36 14:09:00* Test Item Value Reference Range Interpretation Comments Urine Color (test code = 5778-6) YELLOW YELLOW [facility] HospitalUrine Lkzqtal4991-42-55 14:09:00* Test Item Value Reference Range Interpretation Comments Urine Clarity (test code = 71495-2) SL CLOUDY CLEAR H [facility] Specific Bmgasos8306-09-16 14:09:00 * Test Item Value Reference Range Interpretation Comments Urine Specific Excello (test code = 5811-5) 1.010 1.010-1.02 5 [facility] HospitalUrine jL3898-93-69 14:09:00* Test Item Value Reference Range Interpretation Comments Urine pH (test code = 24607-2) 6 5-7 [facility] HospitalUrine Leukocyte Rveeviju6531-71-28 14:09:00* Test Item Value Reference Range Interpretation Comments Urine Leukocyte Esterase (test code = 5799-2) NEGATIVE NEGATIVE [facility] HospitalUrine Gmatvnb9334-58-59 14:09:00* Test Item Value Reference Range Interpretation Comments Urine Nitrite (test code = 27028-6) NEGATIVE NEGATIVE [facility] HospitalUrine Lqvksth0381-42-31 14:09:00* Test Item Value Reference Range Interpretation Comments Urine Protein (test code = 5804-0) TRACE NEGATIVE H [facility] HospitalUrine Glucose (UA)2019-02-16 14:09:00* Test Item Value Reference Range Interpretation Comments Urine Glucose (UA) (test code = 2349-9) 3+ NEGATIVE H [facility] HospitalUrine Ipxeclb1854-86-05 14:09:00* Test Item Value Reference Range Interpretation Comments Urine Ketones (test code = 20574-1) NEGATIVE NEGATIVE [facility] HospitalUrine Mjfuvhbbftfb0988-26-11 14:09:00* Test Item Value Reference Range Interpretation Comments Urine Urobilinogen (test code = 45360-9) 0.2 0.2-1 [facility] HospitalUrine Hgfawcyca6354-22-22 14:09:00* Test Item Value Reference Range Interpretation Comments Urine Bilirubin (test code = 1978-6) NEGATIVE NEGATIVE [facility] HospitalUrine Kznwm8637-48-32 14:09:00* Test Item Value Reference Range Interpretation Comments Urine Blood (test code = 51667-0) MODERATE NEGATIVE [facility] HospitalCT ABDOMEN/PELVIS RF7768-13-18 13:44:00 [address] [address] Patient Name: ZAYNAB FLORES MR #: [id number] : 1965 Age/Sex: 54/M Req #: [id number] Adm Physician: Ordered by: ADELA BENDER, DOMENIC BENDER Report #: [id number] Location: ER Room/Bed: Procedure: 1210-[address]/CT ABDOMEN/PELVIS WO Exam Date: 02/16/19 Exam Time: 1250 REPORT STATUS: Signed TECHNIQUE: CT of the abdomen and pelvis WITHOUT intravenous contrast and wit hout oral contrast. Dose modulation, iterative reconstruction, and/or weight-b ased adjustment of the mA/kV was utilized to reduce the radiation dose to as l ow as reasonably achievable. INDICATION: STONE PROTOCOL [id number] 1250 Y. COMPARISON: CT from 07/08/2017. FINDINGS: [...] 1:58 PM Dictated By: DANYELLE MCDONALD MD 5708 T ranscribed By: MICHEAL on 02/16/19 3409 COPY TO: DOMENIC CHAPMAN Magnesium Kwkvb1186-08-67 13:31:00* Test Item Value Reference Range Interpretation Comments Magnesium Level (test code = 52065-9) 1.8 1.3-2.1 [facility] HospitalLipase2019-12-10 13:31:00* Test Item Value Reference Range Interpretation Comments Lipase (test code = 3040-3) 47 8-78 [facility] HospitalMagnesium Zqovy8661-27-75 13:31:00* Test Item Value Reference Range Interpretation Comments Magnesium Level (test code = 19069-3) 1.8 1.3-2.1 [facility]2019-[facility] 13:31:00* Test Item Value Reference Range Interpretation Comments Lipase (test code = 3040-3) 47 [facility] HospitalMagnesium Rlqgu9158-76-66 13:31:00* Test Item Value Reference Range Interpretation Comments Magnesium Level (test code = 21501-6) 1.8 1.3-2.1 [facility]Lipase2019-12-10 13:31:00* Test Item Value Reference Range Interpretation Comments Lipase (test code = 3040-3) 47 [facility] HospitalABDOM[facility]VIEW (KUB)2019-02-15 10:51:00 [place] [address] Patient Name: ZAYNAB FLORES MR #: [id number] : 1965 Age/Sex: 54/M Req #: [id number] Adm Physician: Ordered by: CARLOS COX MD Report #: [id number] Location: [facility] Room/Bed: Procedure: [id number] DX/ABDOMEN-1VIEW (KUB) Exam Date: 02/15/19 Exam Jerry [...] MICHEAL on 02/15/19 105 COPY T O: CARLOS COX MD ABDOMEN-1VIEW (KUB)2018-11-27 11:39:00 [place] [address] Patient Name: ZAYNAB FLORES MR #: [id number] : 1965 Age/Sex: 53/M Req #: [id number] Adm Physician: Ordered by: CARLOS COX MD Report #: [id number] Location: [facility] Room/Bed: Procedure: [id number] DX/ABDOMEN-1VIEW (KUB) Exam Date: 11/27/18 Exam Jerry [...] By: MICHEAL on 11/27/18 1143 COPY TO: CARLOS COX MD Blood Cuhhybu9484-22-84 21:14:00* Test Item Value Reference Range Interpretation Comments Blood Culture (test code = 88632484) NO GROWTH AFTER 5 DAYS, FINAL REPORT [facility] Scprtih4172-81-20 21:14:00* Test Item Value Reference Range Interpretation Comments Blood Culture (test code = 76731686) NO GROWTH AFTER 5 DAYS, FINAL REPORT [facility] Mjcvvdh6082-25-34 21:14:00* Test Item Value Reference Range Interpretation Comments Blood Culture (test code = 07300574) NO GROWTH AFTER 5 DAYS, FINAL REPORT [facility] HospitalUrine Rhanuqw1264-48-56 08:06:00* Test Item Value Reference Range Interpretation Comments Urine Culture (test code = 630-4) No Result Data Provided [facility] HospitalU[facility] Unhbayb7697-96-67 08:06:00* Test Item Value Reference Range Interpretation Comments Urine Culture (test code = 630-4) No Result Data Provided [facility] Hospital[facility] Kugmwmj5941-32-00 08:06:00* Test Item Value Reference Range Interpretation Comments Urine Culture (test code = 630-4) No Result Data Provided [facility] HospitalBedside Ileooqy9447-07-63 11:54:00* Test Item Value Reference Range Interpretation Comments Bedside Glucose (test code = 79320-5) 126 70-120 H Meter ID: [id number] Scott & [facility] Dallasodium Level 2018-09-03 11:47:00* Test Item Value Reference Range Interpretation Comments Sodium Level (test code = 2951-2) 136 136-145 [facility] HospitalPotassium Wuyst8497-14-21 11:47:00* Test Item Value Reference Range Interpretation Comments Potassium Level (test code = 2823-3) 3.5 3.5-5.1 [facility] HospitalChloride Sleaf5322-49-99 11:47:00* Test Item Value Reference Range Interpretation Comments Chloride Level (test code = 2075-0) 107 98-107 [facility] HospitalCarbon Dioxide Dtiog8300-12-13 11:47:00* Test Item Value Reference Range Interpretation Comments Carbon Dioxide Level (test code = 2028-9) 21 22-29 L [facility] HospitalAnion Adp0814-88-82 11:47:00* Test Item Value Reference Range Interpretation Comments Anion Gap (test code = 31194-9) 11.5 8-16 [facility] HospitalBlood Urea Vcsitvzt4074-65-15 11:47:00* Test Item Value Reference Range Interpretation Comments Blood Urea Nitrogen (test code = 3094-0) 9 7-26 [facility] HospitalCreatinine2019-06-27 11:47:00* Test Item Value Reference Range Interpretation Comments Creatinine (test code = 2160-0) 0.91 0.72-1.25 [facility] HospitalBUN/Creatinine Vixbb2069-24-80 11:47:00* Test Item Value Reference Range Interpretation Comments BUN/Creatinine Ratio (test code = 3097-3) 10 6-25 [facility] HospitalEstimat Glomerular Filtration Rate 2018-09-03 11:47:00* Test Item Value Reference Range Interpretation Comments Estimat Glomerular Filtration Rate (test code = 116208462) > 60 >60 Ranges were taken from the National Kidney Disease Education Program and the [facility] literature.Reference ranges:60 or greater: Mnxglh40-68 ( for 3 consecutive months): Chronic kidney disease 15 or less: Kidney failureMethodist Children's HospitalGlucose Cvsal4011-68-32 11:47:00* Test Item Value Reference Range Interpretation Comments Glucose Level (test code = IVN8097) 144 74-118 H [facility] HospitalCalcium Icbgl0113-43-10 11:47:00* Test Item Value Reference Range Interpretation Comments Calcium Level (test code = 83386-9) 9.1 8.4-10.2 [facility] HospitalUrine Dcqprfm3320-42-04 09:48:00* Test Item Value Reference Range Interpretation Comments Urine Culture (test code = 630-4) Organism: YEAST SPECIES [facility] HospitalCHEST 2 YHHHS0559-36-78 06:05:00 [facility] [address] [address] Patient Name: ZAYNAB FLORES MR #: [id number] : 1965 Age/Sex: 53/M Req #: [id number] Adm Physician: LIVAN CASTANEDA MD Ordered by: LIVAN CASTANEDA MD Report #: [id number] Location: MED/SURG2 Room/Bed: [facility] Procedure: 02 DX/CHEST 2 VIEWS Exam Date: [...] EAGLE MD on 09/03/18605 Transcribed By: JEANNE Pina on 09/03/18605 COPY TO: LIVAN CASTANEDA MD Blood Culture 2018-09-02 21:14:00* Test Item Value Reference Range Interpretation Comments Blood Culture (test code = 42698671) NO GROWTH AFTER 24 HOURS [facility] Bcigyeuyw8865-82-10 05:50:00* Test Item Value Reference Range Interpretation Comments Total Bilirubin (test code = 1975-2) 1.7 0.2-1.2 H [facility] HospitalAspartate Amino Transf (AST/SGOT) 2018-09-02 05:50:00* Test Item Value Reference Range Interpretation Comments Aspartate Amino Transf (AST/SGOT) (test code = Aspartate Amino Transf (AST/SGOT)) 18 5-34 [facility] HospitalAlanine Aminotransferase (ALT/SGPT) 2018-09-02 05:50:00* Test Item Value Reference Range Interpretation Comments Alanine Aminotransferase (ALT/SGPT) (test code = 1742-6) 26 0-55 [facility] HospitalTotal Mttrbzc0772-04-20 05:50:00* Test Item Value Reference Range Interpretation Comments Total Protein (test code = 2885-2) 6.8 6.5-8.1 [facility] HospitalAlbumin2019-06-26 05:50:00* Test Item Value Reference Range Interpretation Comments Albumin (test code = 1751-7) 3.5 3.5-5.0 [facility] HospitalGlobulin2019-06-26 05:50:00* Test Item Value Reference Range Interpretation Comments Globulin (test code = 68728-1) 3.3 2.3-3.5 [facility] HospitalAlbumin/Globulin Ecqcp7194-76-06 05:50:00 * Test Item Value Reference Range Interpretation Comments Albumin/Globulin Ratio (test code = 1759-0) 1.1 0.8-2.0 [facility] HospitalAlkaline Hfchozgikkw8668-80-42 05:50:00* Test Item Value Reference Range Interpretation Comments Alkaline Phosphatase (test code = 6768-6) 76 40-150 [facility] HospitalWhite Blood Rxqlb7103-97-99 05:36:00* Test Item Value Reference Range Interpretation Comments White Blood Count (test code = 6690-2) 13.57 4.8-10.8 H [facility] HospitalRed Blood Bxzoz4571-88-25 05:36:00* Test Item Value Reference Range Interpretation Comments Red Blood Count (test code = 789-8) 4.37 4.3-5.7 [facility] HospitalHemoglobin2019-06-26 05:36:00* Test Item Value Reference Range Interpretation Comments Hemoglobin (test code = 95296-4) 11.4 14.0-18.0 L [facility] HospitalHematocrit2019-06-26 05:36:00* Test Item Value Reference Range Interpretation Comments Hematocrit (test code = 4544-3) 35.2 38.2-49.6 L [facility] HospitalMean Corpuscular Qczarz0864-83-62 05:36:00* Test Item Value Reference Range Interpretation Comments Mean Corpuscular Volume (test code = 787-2) 80.5 81-99 L [facility] HospitalMean Corpuscular Hieyclpbsv7664-15-35 05:36:00* Test Item Value Reference Range Interpretation Comments Mean Corpuscular Hemoglobin (test code = 785-6) 26.1 28-32 L [facility] HospitalMean Corpuscular Hemoglobin Concent 2018-09-02 05:36:00* Test Item Value Reference Range Interpretation Comments Mean Corpuscular Hemoglobin Concent (test code = 786-4) 32.4 31-35 [facility] HospitalRed Cell Distribution Hngiv7206-50-98 05:36:00* Test Item Value Reference Range Interpretation Comments Red Cell Distribution Width (test code = 16715-7) 15.4 11.7 -14.4 H [facility] HospitalPlatelet Vpgjf9149-36-75 05:36:00* Test Item Value Reference Range Interpretation Comments Platelet Count (test code = 777-3) 244 140-360 [facility] HospitalNeutrophils (%) (Auto)2018-09-02 05:36:00 * Test Item Value Reference Range Interpretation Comments Neutrophils (%) (Auto) (test code = 77121-5) 67.5 38.7-80.0 [facility] HospitalLymphocytes (%) (Auto)2018-09-02 05:36:00 * Test Item Value Reference Range Interpretation Comments Lymphocytes (%) (Auto) (test code = 736-9) 19.0 18.0-39.1 [facility] HospitalMonocytes (%) (Auto)2018-09-02 05:36:00* Test Item Value Reference Range Interpretation Comments Monocytes (%) (Auto) (test code = 5905-5) 10.2 4.4-11.3 [facility] HospitalEosinophils (%) (Auto)2018-09-02 05:36:00 * Test Item Value Reference Range Interpretation Comments Eosinophils (%) (Auto) (test code = 713-8) 2.5 0.0-6.0 [facility] HospitalBasophils (%) (Auto)2018-09-02 05:36:00* Test Item Value Reference Range Interpretation Comments Basophils (%) (Auto) (test code = 706-2) 0.4 0.0-1.0 [facility] HospitalIM GRANULOCYTES %2018-09-02 05:36:00* Test Item Value Reference Range Interpretation Comments IM GRANULOCYTES % (test code = IM GRANULOCYTES %) 0.4 0.0- 1.0 [facility] HospitalNeutrophils # (Auto)2018-09-02 05:36:00* Test Item Value Reference Range Interpretation Comments Neutrophils # (Auto) (test code = 751-8) 9.2 2.1-6.9 H [facility] HospitalLymphocytes # (Auto)2018-09-02 05:36:00* Test Item Value Reference Range Interpretation Comments Lymphocytes # (Auto) (test code = 31957-8) 2.6 1.0-3.2 [facility] HospitalMonocytes # (Auto)2018-09-02 05:36:00* Test Item Value Reference Range Interpretation Comments Monocytes # (Auto) (test code = 742-7) 1.4 0.2-0.8 H [facility] HospitalEosinophils # (Auto)2018-09-02 05:36:00* Test Item Value Reference Range Interpretation Comments Eosinophils # (Auto) (test code = 711-2) 0.3 0.0-0.4 [facility] HospitalBasophils # (Auto)2018-09-02 05:36:00* Test Item Value Reference Range Interpretation Comments Basophils # (Auto) (test code = 704-7) 0.1 0.0-0.1 [facility] HospitalAbsolute Immature Granulocyte (auto 2018-09-02 05:36:00* Test Item Value Reference Range Interpretation Comments Absolute Immature Granulocyte (auto (chel t code = Absolute Immature Granulocyte (auto) 0.06 0-0.1 [facility] HospitalLactic Acid Cglwd3563-53-40 01:40:00* Test Item Value Reference Range Interpretation Comments Lactic Acid Level (test code = Lactic Acid Level) 19.0 4.5- 19.8 [facility] HospitalLactic Acid Clvsh7310-16-55 01:40:00* Test Item Value Reference Range Interpretation Comments Lactic Acid Level (test code = Lactic Acid Level) 19.0 4.5- 19.8 [facility] HospitalLactic Acid Faato4896-27-82 01:40:00* Test Item Value Reference Range Interpretation Comments Lactic Acid Level (test code = Lactic Acid Level) 19.0 4.5- 19.8 [facility] HospitalLactic Acid Yypql4426-29-84 01:40:00* Test Item Value Reference Range Interpretation Comments Lactic Acid Level (test code = Lactic Acid Level) 19.0 4.5- 19.8 [facility] HospitalCHEST SINGLE (PORTABLE)2018-09-01 21:42:00 [place] [address] Patient Name: ZAYNAB FLORES MR #: [id number] : 1965 Age/Sex: 53/M Req #: [id number] Adm Physician: Ordered by: PRIYA HUYNH MD Report #: [id number] Location: ER Room/Bed: Procedure: [id number] DX/CHEST [...] 09/01/182145 COPY TO: NITHYA HUYNH MD Urine SDO1084-15-53 21:38:00* Test Item Value Reference Range Interpretation Comments Urine WBC (test code = 5821-4) >50 0-5 H [facility] HospitalUrine MIT1599-05-83 21:38:00* Test Item Value Reference Range Interpretation Comments Urine RBC (test code = 05834-0) >50 0-5 H [facility] HospitalUrine Cagyewbl3435-91-61 21:38:00* Test Item Value Reference Range Interpretation Comments Urine Bacteria (test code = 86961-7) MANY NONE H [facility] HospitalUrine Epithelial Bqlwl0598-09-62 21:38:00 * Test Item Value Reference Range Interpretation Comments Urine Epithelial Cells (test code = 38287-1) MODERATE NONE [facility] HospitalUrine Hvkiy2154-81-89 21:19:00* Test Item Value Reference Range Interpretation Comments Urine Color (test code = 5778-6) YELLOW YELLOW [facility] HospitalUrine Qknqfez2318-66-64 21:19:00* Test Item Value Reference Range Interpretation Comments Urine Clarity (test code = 97039-5) CLOUDY CLEAR H [facility] HospitalUrine Specific Yrddpxl0129-27-39 21:19:00 * Test Item Value Reference Range Interpretation Comments Urine Specific Excello (test code = 5811-5) 1.025 1.010-1.02 5 [facility] HospitalUrine pT5570-59-29 21:19:00* Test Item Value Reference Range Interpretation Comments Urine pH (test code = 74202-5) 6 5-7 [facility] HospitalU[facility] Leukocyte Dmmwgezk3819-14-79 21:19:00* Test Item Value Reference Range Interpretation Comments Urine Leukocyte Esterase (test code = 71472-4) SMALL NEGATIV E [facility] HospitalUrine Svlfsen5440-36-63 21:19:00* Test Item Value Reference Range Interpretation Comments Urine Nitrite (test code = 11725-4) NEGATIVE NEGATIVE [facility] HospitalUrine Wgmbxlq6244-57-13 21:19:00* Test Item Value Reference Range Interpretation Comments Urine Protein (test code = 16337-7) 2+ NEGATIVE H [facility] HospitalUrine Glucose (UA)2018-09-01 21:19:00* Test Item Value Reference Range Interpretation Comments Urine Glucose (UA) (test code = 33796-1) 3+ NEGATIVE [facility] HospitalUrine Tcsphwk7123-93-87 21:19:00* Test Item Value Reference Range Interpretation Comments Urine Ketones (test code = 05707-2) NEGATIVE NEGATIVE [facility] HospitalUrine Pdaeoptckili2510-51-19 21:19:00* Test Item Value Reference Range Interpretation Comments Urine Urobilinogen (test code = 95539-5) 0.2 0.2-1 [facility] HospitalUrine Hnzrfswpr5562-90-10 21:19:00* Test Item Value Reference Range Interpretation Comments Urine Bilirubin (test code = 1977-8) NEGATIVE NEGATIVE [facility] HospitalUrine Qaqjg8232-50-17 21:19:00* Test Item Value Reference Range Interpretation Comments Urine Blood (test code = 73586-3) 3+ NEGATIVE [facility] HospitalNEPHROSTOMY CATHETER TVASGZWC6125-87-49 12:48:00 [facility] [place] [address] Patient Name: ZAYNAB FLORES MR #: [id number] : 1965 Age/Sex: 53/M Req #: [id number] Adm Physician: Ordered by: CARLOS COX MD Report #: [id number] Location: OR Room/Bed: Procedure: [id number] DX/NEPHROSTOMY CATHETER EXCHANGE Exam Date: Exam T rudy: REPORT STATUS: Signed Proc edure: Right nephrostomy catheter injection and exchange for a nephroureteral stent. Medications: Versed 3 mg intravenous, Fentanyl 75 mcg intravenous gi brat in an incremental fashion. The patient's vital [...] over a 0.035 " J-wire. A 5 Somali Kumpe catheter was then advanced over the wire and utilizing a 0.035" hydrophilic Glidewire the wire and cathet er was advanced into the bladder. An Amplatz 0.035 " superstiff wire was advan elysia into the bladder through the Kumpe catheter for firm control. A 10.2 Somali 26 cm long nephroureteral stent was then [...] Transcribed By: MICHEAL on 09/09/181619 COPY TO: CARLOS COX MD SPECIAL PROCEDURE IN CATH CGY4998-65-38 12:48:00 [place] [address] Patient Name: ZAYNAB FLORES MR #: [id number] : 1965 Age/Sex: 53/M Req #: [id number] Adm Physician: Ordered by: CARLOS COX MD Report #: [id number] Location: OR Room/Bed: Procedure: [id number] IR/SPECIAL PROCEDURE IN MATERIALS TECH Exam Date: Exam T rudy: REPORT STATUS: [...] over a 0.035 " J-wire. A 5 Somali Kumpe catheter was then advanced over the wire and utilizing a 0.035" hydrophilic Glidewire the wire and cathet er was advanced into the bladder. An Amplatz 0.035 " superstiff wire was advan elysia into the bladder through the Kumpe catheter for firm control. A 10.2 Somali 26 cm long nephroureteral stent was then [...] By: MICHEAL on 09/09/18 1620 COPY TO: CARLOS COX MD - NEPH CATH HOJENQZB0958-34-92 16:18:00 Name: ZAYNAB FLORES [facility] : 1965 Age/S: 53 / M [address] Unit #: [id number] Loc: [place] [address] Phys: Jose Berger MD Acct: [id number] Di s Date: Status: [facility] PHONE #: Exam Date: 08/12/2018 1051 FAX #: [phone] Reason: EXAMS: CPT CODE: [id number] NEPH CATH EXCHA NGE 04504 Fluoro Time: 72 DAP (Gy m2 ): [...] pulse oximetry were continuously monitored by a [facility] registered nurse. Physician okeu-cs-ixut sedation time was 11 minut es. After obtaining informed consent, the patient was [...] and was replaced with a new 12 Somali pigtail nephrostomy tube. This tube was coiled within the renal pelvis, was sutured to the skin and connected to a drainage bag. No complications. IMPRESSION: 1. Successful replacement of a right-sided nephrostomy tube using fluorosco pic guidance. 2. Nonobstructing stone within a lower calyx. This stone i s not in contact with the nephrostomy tube, which is positioned more aircraft life support fitter nially and with its tip in the renal pelvis. 3. Decompressed, no ndilated right renal collecting system and unremarkable right ureter. Fluoroscopy Time: 72 sec CAK : 21 mGy DAP : 3. 85 mGy sq cm PAGE 1 Signed Report (CONTINUED) Name: ZAYNAB FLORES [facility] : 1965 Age[facility]S: 53 / M [address] [facility]: [id number] Loc: [facility] [place] [address] Phys: Rob Berger MD Acct: [id number] Dis Date: Status: [facility] PHONE #: [phone] Exam Date: 08/12/2018 1051 FAX #: [phone] Reason: EXAMS: CPT CODE: [id number] NEPH CATH EXCHANGE 38666 Fluoro Time: 72 DAP (Gy m2): 3.85 Air Kerma (mGy): 21 <Continued> at 1618 Reported and signed by: Rob Berger M.D. CC: Faina Guerrero DO; George Choudhary MD Technologist: JIMBO VALVERDE RT(R) Trngab Date/Time: 08/17/2018 (1617) t.LUCINAW Orig Print D/T: S: 08/17/2018 (7811) PAGE 2 Signed Report ABDOMEN-1VIEW (KUB)2018-08-13 15:38:00 [place] [address] Patient Name: ZAYNAB FLORES MR #: [id number] : 1965 Age/Sex: 53/M Req #: [id number] Adm Physician: Ordered by: CARLOS COX MD Report #: [id number] Location: OR Room/Bed: Procedure: [id number] DX/ ABDOMEN-1VIEW (KUB) Exam Date: 08/13/18 Exam [...] Transcribed By: MICHEAL on 08/13/181541 COPY TO: CARLOS COX MD GLUBED 2018-08-12 09:21:00* Test Item Value Reference Range Interpretation Comments GLUBED (test code = GLUBED) 122 mg/dL 74-106 H Performed by certified dielectric machine operator at [facility] PROTHROMBIN FZTP7894-28-75 15:27:00* Test Item Value Reference Range Interpretation [...] Mechanical prosthetic heart valves (2.5-3.5) THROMBOPLASTIN TIME YYOQQZI0676-85-76 15:27:00* Test Item Value Reference Range Interpretation Comments THROMBOPLASTIN TIME PARTIAL (test code = PTT) 32.2 seconds 25.0-36. 5 N CBC W/AUTO JIXK5910-07-62 15:19:00* Test Item Value Reference Range Interpretation [...] MANUAL DIFF REQUIRED (test code = MDIFF) NO CHEM XKJGY6433-06-07 22:43:0070[facility] YRJQB7559-60-16 22:43:0016 [facility]annCHE[facility] TDBCR8484-04-16 22:43:001.16[facility]annCHEM PANEL 2018-03-13 22:43:72071Ltcbjyww HermannCHEM DPNVL9685-35-00 22:43:40674Wvlscihd HermannCHEM AYDVB6919-80-15 22:43:003.8[facility]annCHEM GLUZU4693-07-81 22:43:009.0[facility]annCHEM BDAEX9733-15-91 22:43:0030[facility]annCHEM DCLTQ9532-74-75 22:43:17003Fqjwydgn HermannCHEM RUODD6590-05-05 22:43:009.8 Memorial RnrsltqVJEXOWPIQZ3876-25-36 22:43:008.3[facility]annHEMATOLOGY 2018-03-13 22:43:0059.7Memorial YyzuwngMARMUQRWZT1968-00-83 22:43:0028.6[facility] DunuvrvZSPGSFERYZ1688-82-52 22:43:002.9[facility]orial KlybkzxBJYLLEJBSK6879-71-53 22:43:000.7[facility]orial NymtsubARNIXROQFD4317-17-79 22:43:000.3[facility] [place] YVKGNOJHHO9582-45-86 22:43:000.5[facility]orial WqwvjdkZWMQRSSRRN0074-66-82 22:43:005.3 Memorial DranjkvYDFOHLOFDM1188-21-17 22:43:002.6[facility]annHEMATOLOGY 2018-03-13 22:43:50187Owkwnmrx XfbjdpxXSSKMGOSNG2862-59-89 22:43:0015.1[facility]orial KoyjznqHKYZWUEIHJ1925-99-48 22:43:008.8[facility]orial XvtbryiBJQQOJICMF8908-76-11 22:43:0014.3[facility]orial TlapkdhMWDDKJWXOB2740-17-65 22:43:008.9[facility] OAPUNWPWEI9296-09-12 22:43:005.11[facility]orial YhljthvPIIKWLWJHP9840-85-03 22:43:00 43.2Memorial LsxhgykJJWOSNEUHD8156-39-63 22:43:0033.1[facility]annHEMATOLOGY 2018-03-13 22:43:00* Test Item Value Reference Range Interpretation Comments MCH (test code = MCH) 28.0 pg 27.0-31.0 [facility] CgnxxlaBHERFPWCXT1580-87-86 22:43:0084.6[facility]annSPECIAL RTCEPWFZO7134-28-60 22:43:007.8[facility] HermannABDOMEN-1VIEW (KUB)2018-01-06 09:00:00 [place] [address] Patient Name: ZAYNAB FLORES MR #: [id number] : 1965 Age/Sex: 52/M Req #: [id number] Adm Physician: Ordered by: CARLOS COX MD Report #: [id number] Location: OR Room/Bed: Procedure: [id number] DX/ ABDOMEN-1VIEW (KUB) Exam Date: 01/06/18 Exam [...] Transcribed By: MICHEAL on 01/06/18902 COPY TO: CARLOS COX MD Bedside Nfljxzz2082-37-00 07:49:00* Test Item Value Reference Range Interpretation Comments Bedside Glucose (test code = 37930-6) 161 70-120 H Meter ID: [id number] Children's HospitalBlood Urea Nitrogen 2018-01-05 10:36:00* Test Item Value Reference Range Interpretation Comments Blood Urea Nitrogen (test code = 3094-0) 18 7-26 [facility] HospitalBUN/Creatinine Asiof0973-18-55 10:36:00* Test Item Value Reference Range Interpretation Comments BUN/Creatinine Ratio (test code = 3097-3) 17 6-25 [facility] Dallasodium Kyakn3109-70-69 10:23:00* Test Item Value Reference Range Interpretation Comments Sodium Level (test code = 2951-2) 141 136-145 [facility] HospitalPotassium Xhiyb8554-68-62 10:23:00* Test Item Value Reference Range Interpretation Comments Potassium Level (test code = 2823-3) 3.6 3.5-5.1 [facility] HospitalChloride Kiaxo3456-49-43 10:23:00* Test Item Value Reference Range Interpretation Comments Chloride Level (test code = 2075-0) 107 98-107 [facility] HospitalCarbon Dioxide Sgrta6664-81-20 10:23:00* Test Item Value Reference Range Interpretation Comments Carbon Dioxide Level (test code = 2028-9) 24 22-29 [facility] HospitalAnion Pco2818-10-26 10:23:00* Test Item Value Reference Range Interpretation Comments Anion Gap (test code = 28206-7) 13.6 8-16 [facility] HospitalCreatinine2018-10-29 10:23:00* Test Item Value Reference Range Interpretation Comments Creatinine (test code = 2160-0) 1.04 0.72-1.25 [facility] HospitalEstimat Glomerular Filtration Rate 2018-01-05 10:23:00* Test Item Value Reference Range Interpretation Comments Estimat Glomerular Filtration Rate (test code = 846801640) > 60 >60 Ranges were taken from the National Kidney Disease Education Program and the [facility] literature.Reference ranges:60 or greater: Zxziju25-84 ( for 3 consecutive months): Chronic kidney disease 15 or less: Kidney failureCHI Matagorda Regional Medical CenterGlucose Rgceo5136-20-01 10:23:00* Test Item Value Reference Range Interpretation Comments Glucose Level (test code = SQD1482) 154 74-118 H [facility] HospitalCalcium Uqybx4188-53-82 10:23:00* Test Item Value Reference Range Interpretation Comments Calcium Level (test code = 03290-3) 9.5 8.4-10.2 [facility] HospitalABDOMEN-1VIEW (KUB)2017-09-26 12:30:00 [place] [address] Patient Name: ZAYNAB FLORES MR #: [id number] : 1 04/03/1964 Age/Sex: 52/M Req #: [id number] Adm Physician: Ordered by: CARLOS COX MD Report #: [id number] Location: [facility] Room/Be d: Procedure: [id number] DX/ABDOMEN-1VIEW (KUB) Exam Date: 09/26/17 Exam Time: [...] By: LOUISA on 09/26/17 1230 COPY TO: CARLOS COX MD ABDOMEN-1VIEW (KUB)2017-09-02 06:32:00 [place] [address] Patient Name: ZAYNAB FLORES MR #: [id number] : 1965 Age/Sex: 52/M Req #: [id number] Adm Physician: Ordered by: CARLOS COX MD Report #: [id number] Location: OR Room/Bed: Procedure: [id number] DX/ABDOMEN-1VIEW (KUB) Exam D ate: Exam Time: [...] Transcribed By: MICHEAL on 09/02/17635 COPY TO: CARLOS COX MD Bedside Wqflhef1556-47-22 12:01:00* Test Item Value Reference Range Interpretation Comments Bedside Glucose (test code = 65828-2) 172 70-120 H Meter ID: [id number] Scott [facility]odium Level 2017-07-09 07:18:00* Test Item Value Reference Range Interpretation Comments Sodium Level (test code = 2951-2) 139 136-145 [facility] Wptlu4018-11-18 07:18:00* Test Item Value Reference Range Interpretation Comments Potassium Level (test code = 2823-3) 3.7 3.5-5.1 [facility] HospitalChloride Rkvrf2542-48-15 07:18:00* Test Item Value Reference Range Interpretation Comments Chloride Level (test code = 2075-0) 108 98-107 H [facility] HospitalCarbon Dioxide Eifov2942-82-16 07:18:00* Test Item Value Reference Range Interpretation Comments Carbon Dioxide Level (test code = 2028-9) 22 - [facility] HospitalAnion Nmb1527-19-46 07:18:00* Test Item Value Reference Range Interpretation Comments Anion Gap (test code = 03454-0) 12.7 8-16 [facility] HospitalBlood Urea Gksnacwr3817-14-10 07:18:00* Test Item Value Reference Range Interpretation Comments Blood Urea Nitrogen (test code = 3094-0) 18 7-26 [facility] HospitalCreatinine2018-05-02 07:18:00* Test Item Value Reference Range Interpretation Comments Creatinine (test code = 2160-0) 1.46 0.72-1.25 H [facility] HospitalBUN/Creatinine Zxqzt5362-71-56 07:18:00* Test Item Value Reference Range Interpretation Comments BUN/Creatinine Ratio (test code = 3097-3) 12 - [facility] HospitalEstimat Glomerular Filtration Rate 2017-07-09 07:18:00* Test Item Value Reference Range Interpretation Comments Estimat Glomerular Filtration Rate (test code = 79484-5) 50 >60 L Ranges were taken from the National Kidney Disease Education Program and the [facility] literature.Reference ranges:60 or greater: Iyozqx60-52 ( for 3 consecutive months): Chronic kidney disease 15 or less: Kidney failureMethodist Children's HospitalGlucose Ufcjo0638-50-12 07:18:00* Test Item Value Reference Range Interpretation Comments Glucose Level (test code = YSA1591) 142 74-118 H [facility] HospitalCalcium Rivzr4005-84-65 07:18:00* Test Item Value Reference Range Interpretation Comments Calcium Level (test code = 87208-9) 8.5 8.4-10.2 [facility] HospitalTotal Neiuywxct6464-63-70 07:18:00* Test Item Value Reference Range Interpretation Comments Total Bilirubin (test code = 1975-2) 1.4 0.2-1.2 H [facility] HospitalAspartate Amino Transf (AST/SGOT) 2017-07-09 07:18:00* Test Item Value Reference Range Interpretation Comments Aspartate Amino Transf (AST/SGOT) (test code = Aspartate Amino Transf (AST/SGOT)) 19 5-34 [facility] HospitalAlanine Aminotransferase (ALT/SGPT) 2017-07-09 07:18:00* Test Item Value Reference Range Interpretation Comments Alanine Aminotransferase (ALT/SGPT) (test code = 1742-6) 23 0-55 [facility] HospitalTotal Daqsyfo9283-75-40 07:18:00* Test Item Value Reference Range Interpretation Comments Total Protein (test code = 2885-2) 6.4 6.5-8.1 L [facility] HospitalAlbumin2018-05-02 07:18:00* Test Item Value Reference Range Interpretation Comments Albumin (test code = 1751-7) 3.3 3.5-5.0 L [facility] HospitalGlobulin2018-05-02 07:18:00* Test Item Value Reference Range Interpretation Comments Globulin (test code = 48513-7) 3.1 2.3-3.5 [facility] HospitalAlbumin/Globulin Lzblz8746-08-01 07:18:00 * Test Item Value Reference Range Interpretation Comments Albumin/Globulin Ratio (test code = 1759-0) 1.1 0.8-2.0 [facility] HospitalAlkaline Kunkufphhtg8654-94-08 07:18:00* Test Item Value Reference Range Interpretation Comments Alkaline Phosphatase (test code = 6768-6) 65 40-150 [facility] HospitalWhite Blood Qvxnj7849-74-12 06:46:00* Test Item Value Reference Range Interpretation Comments White Blood Count (test code = 6690-2) 7.47 4.8-10.8 [facility] HospitalRed Blood Blwpv4318-83-33 06:46:00* Test Item Value Reference Range Interpretation Comments Red Blood Count (test code = 789-8) 4.51 4.3-5.7 [facility] HospitalHemoglobin2018-05-02 06:46:00* Test Item Value Reference Range Interpretation Comments Hemoglobin (test code = 92725-5) 12.5 14.0-18.0 L [facility] HospitalHematocrit2018-05-02 06:46:00* Test Item Value Reference Range Interpretation Comments Hematocrit (test code = 4544-3) 38.4 38.2-49.6 [facility] HospitalMean Corpuscular Ufvllf0275-69-06 06:46:00* Test Item Value Reference Range Interpretation Comments Mean Corpuscular Volume (test code = 787-2) 85.1 81-99 [facility] HospitalMean Corpuscular Smxxgmllqo2434-68-27 06:46:00* Test Item Value Reference Range Interpretation Comments Mean Corpuscular Hemoglobin (test code = 785-6) 27.7 28-32 L [facility] HospitalMean Corpuscular Hemoglobin Concent 2017-07-09 06:46:00* Test Item Value Reference Range Interpretation Comments Mean Corpuscular Hemoglobin Concent (test code = 786-4) 32.6 31-35 [facility] HospitalRed Cell Distribution Foiyx2196-65-41 06:46:00* Test Item Value Reference Range Interpretation Comments Red Cell Distribution Width (test code = 82274-9) 15.0 11.7 -14.4 H [facility] HospitalPlatelet Cuqgv8107-75-37 06:46:00* Test Item Value Reference Range Interpretation Comments Platelet Count (test code = 777-3) 192 140-360 [facility] HospitalNeutrophils (%) (Auto)2017-07-09 06:46:00 * Test Item Value Reference Range Interpretation Comments Neutrophils (%) (Auto) (test code = 77961-0) 73.5 38.7-80.0 [facility] HospitalLymphocytes (%) (Auto)2017-07-09 06:46:00 * Test Item Value Reference Range Interpretation Comments Lymphocytes (%) (Auto) (test code = 736-9) 11.8 18.0-39.1 L [facility] HospitalMonocytes (%) (Auto)2017-07-09 06:46:00* Test Item Value Reference Range Interpretation Comments Monocytes (%) (Auto) (test code = 5905-5) 12.0 4.4-11.3 H [facility] HospitalEosinophils (%) (Auto)2017-07-09 06:46:00 * Test Item Value Reference Range Interpretation Comments Eosinophils (%) (Auto) (test code = 713-8) 2.3 0.0-6.0 [facility] HospitalBasophils (%) (Auto)2017-07-09 06:46:00* Test Item Value Reference Range Interpretation Comments Basophils (%) (Auto) (test code = 706-2) 0.1 0.0-1.0 [facility] HospitalIM GRANULOCYTES %2017-07-09 06:46:00* Test Item Value Reference Range Interpretation Comments IM GRANULOCYTES % (test code = IM GRANULOCYTES %) 0.3 0.0- 1.0 [facility] HospitalNeutrophils # (Auto)2017-07-09 06:46:00* Test Item Value Reference Range Interpretation Comments Neutrophils # (Auto) (test code = 751-8) 5.5 2.1-6.9 [facility] HospitalLymphocytes # (Auto)2017-07-09 06:46:00* Test Item Value Reference Range Interpretation Comments Lymphocytes # (Auto) (test code = 14921-5) 0.9 1.0-3.2 L [facility] HospitalMonocytes # (Auto)2017-07-09 06:46:00* Test Item Value Reference Range Interpretation Comments Monocytes # (Auto) (test code = 742-7) 0.9 0.2-0.8 H [facility] HospitalEosinophils # (Auto)2017-07-09 06:46:00* Test Item Value Reference Range Interpretation Comments Eosinophils # (Auto) (test code = 711-2) 0.2 0.0-0.4 [facility] HospitalBasophils # (Auto)2017-07-09 06:46:00* Test Item Value Reference Range Interpretation Comments Basophils # (Auto) (test code = 704-7) 0.0 0.0-0.1 [facility] HospitalAbsolute Immature Granulocyte (auto 2017-07-09 06:46:00* Test Item Value Reference Range Interpretation Comments Absolute Immature Granulocyte (auto (chel t code = Absolute Immature Granulocyte (auto) 0.02 0-0.1 [facility] HospitalProthrombin Nycr9662-00-84 06:58:00* Test Item Value Reference Range Interpretation Comments Prothrombin Time (test code = 5902-2) 13.1 11.9-14.5 [facility] HospitalProthromb Time International Ratio 2017-07-08 06:58:00* Test Item Value Reference Range Interpretation Comments Prothromb Time International Ratio (test code = 6301-6) 1.07 Oral Anticoagulant Therapy INR Values:1. Low Intensity Therapy 1.5 - 2.02 . Moderate Intensity Therapy 2.0 - 3.03. High Intensity Therapy(1) 2.5 - 3. 54. High Intensity Therapy(2) 3.0 - 4.05. Panic Value INR > 5.0 [facility] HospitalActivated Partial Thromboplast Time 2017-07-08 06:58:00* Test Item Value Reference Range Interpretation Comments Activated Partial Thromboplast Time (test code = 97260-5) 31.3 23.8-35.5 [facility] HospitalAmylase Gfvpk4249-11-81 06:57:00* Test Item Value Reference Range Interpretation Comments Amylase Level (test code = 1798-8) 29 25-125 [facility] HospitalLipase2018-05-01 06:57:00* Test Item Value Reference Range Interpretation Comments Lipase (test code = 3040-3) 72 8-78 [facility] HospitalUrine KXG0139-94-99 05:43:00* Test Item Value Reference Range Interpretation Comments Urine WBC (test code = 5821-4) 6-10 0-5 H [facility] HospitalUrine JCE5362-43-04 05:43:00* Test Item Value Reference Range Interpretation Comments Urine RBC (test code = 46127-2) 21-50 0-5 H [facility] HospitalUrine Itcnzujr6552-32-91 05:43:00* Test Item Value Reference Range Interpretation Comments Urine Bacteria (test code = 23702-8) RARE NONE [facility] HospitalUrine Epithelial Nqsug1187-01-35 05:43:00 * Test Item Value Reference Range Interpretation Comments Urine Epithelial Cells (test code = 87115-0) RARE NONE [facility] HospitalUrine Fudjr8741-99-38 05:24:00* Test Item Value Reference Range Interpretation Comments Urine Color (test code = 5778-6) YELLOW YELLOW [facility] HospitalUrine Gbzdepn3525-49-90 05:24:00* Test Item Value Reference Range Interpretation Comments Urine Clarity (test code = 31127-9) CLEAR CLEAR [facility] HospitalUrine Specific Gnshuii4549-14-53 05:24:00 * Test Item Value Reference Range Interpretation Comments Urine Specific Excello (test code = 5811-5) 1.025 1.010-1.02 5 [facility] HospitalUrine nJ1589-28-65 05:24:00* Test Item Value Reference Range Interpretation Comments Urine pH (test code = 48469-1) 5 5-7 [facility] HospitalUrine Leukocyte Qncircwc4979-95-78 05:24:00* Test Item Value Reference Range Interpretation Comments Urine Leukocyte Esterase (test code = 5799-2) NEGATIVE NEGATIVE [facility] HospitalUrine Ybaekyg2764-11-38 05:24:00* Test Item Value Reference Range Interpretation Comments Urine Nitrite (test code = 12564-6) NEGATIVE NEGATIVE [facility] HospitalUrine Vcdualp1598-43-38 05:24:00* Test Item Value Reference Range Interpretation Comments Urine Protein (test code = 5804-0) 1+ NEGATIVE H [facility] HospitalUrine Glucose (UA)2017-07-08 05:24:00* Test Item Value Reference Range Interpretation Comments Urine Glucose (UA) (test code = 2349-9) 2+ NEGATIVE H [facility] HospitalUrine Mjbqbdq8993-13-37 05:24:00* Test Item Value Reference Range Interpretation Comments Urine Ketones (test code = 33840-5) NEGATIVE NEGATIVE [facility] HospitalUrine Saqwcoibdlmf6736-01-89 05:24:00* Test Item Value Reference Range Interpretation Comments Urine Urobilinogen (test code = 09937-6) 0.2 0.2-1 [facility] HospitalUrine Knxterygd4442-98-41 05:24:00* Test Item Value Reference Range Interpretation Comments Urine Bilirubin (test code = 1978-6) NEGATIVE NEGATIVE [facility] HospitalUrine Eiiym1321-72-70 05:24:00* Test Item Value Reference Range Interpretation Comments Urine Blood (test code = 64142-7) 2+ NEGATIVE H [facility] HospitalURINALYSIS2013-10-02 18:30:00>182[facility] RpnalhsZIWHMDMSGB9602-79-77 18:30:00Occasional /LPF *NA*(12/09/2012 13:30:00) [facility] XbsjcopEHOYOIJBFY9651-67-38 18:30:009[facility]annURINALYSIS 2012-12-09 18:30:00Clear (12/09/2012 13:30:00) [facility] HermannURINALYSIS 2012-12-09 18:30:00Negative mg/dL (12/09/2012 13:30:00) [facility] BYGHKTDHGU9364-84-65 18:30:005.0[facility] OexhrrfKXJVCZKICS6788-88-15 18:30:00 1.015[facility] EctvilsTXBMJAQCIV5463-59-31 18:30:00Large *ABN*(12/09/2012 13:30:00) [facility] LsdnvccBTIUUNLLGW8123-15-79 18:30:002.0[facility] GFITGKHCII5890-20-74 18:30:00Positive *ABN*(12/09/2012 13:30:00) [facility] JyfbkytPVYMYEWZUD8917-30-21 18:30:00Negative (12/09/2012 13:30:00) [facility] UspmxatICAYNFIBOP6420-00-97 18:30:00Negative mg/dL *NA*(12/09/2012 13:30:00) [facility] YbhyvnyCDZTAWGBZB7884-07-89 18:30:00Negative mg/dL *NA*(12/09/2012 13:30:00) [facility] ExmwypaCHREYYCNPN6219-04-24 18:30:00Negative *NA*(12/09/2012 13:30:00) [facility] UdbgkxkZXUNJNCHR4173-03-37 15:20:0078[facility] SDWCIVKCJ1289-38-38 15:20:0029[facility] EqlyvlcPJPHZSBSZ3791-28-27 15:20:001.1 [facility] MdtwqrdUTVEXIMRL5201-26-83 15:20:69380Jmoepmre HermannCHEMISTRY 2012-12-04 15:20:0015[facility] RvimwnwSOHRENMFM1218-32-67 15:20:008.7[facility] SyivhxcLTIQDIYVW3907-20-35 15:20:003.9[facility] RfeufmhJDGCKQJNF7381-57-57 15:20:34993Kfly[place]umb VeyzjrcNDQWTTOXM8214-49-97 15:20:67766Bxakpisc [place] FMTIEVOSG3630-87-58 15:20:0011.9[facility] JlhzxjtRZVKMIAKIK4952-87-03 15:20:00 11.7[facility] BaxybacKPLSRCUDHF0297-22-44 15:20:0083.6[facility] HermannHEMATOLOGY 2012-12-04 15:20:0036.1[facility] EkbqhmlABOWICFOKK8118-62-58 15:20:0014.2[facility] WthidgmFLIHSWRFYD2101-59-89 15:20:26880Hzcqwopo IzqzzeuMNKLZXZYXF8541-84-57 15:20:008.7[facility] EgapsboIEMWEGIWEZ1415-06-33 15:20:004.32[facility] LHGWOUZBDY5669-99-27 15:20:0032.3[facility] LrirodvFPANDLXKFG6919-73-58 15:20:00* Test Item Value Reference Range Interpretation Comments MCH (test code = MCH) 27.0 pg 27.0-31.0 N [facility] MsykatkSCEOAHCNUX4140-40-98 15:20:007.0[facility] HermannHEMATOLOGY 2012-12-04 15:20:005.0[facility] FclqwvuSEBPUVFNMR6396-48-64 15:20:000.2[facility] UzpzwwrSYORZDTMWP0339-11-75 15:20:000.1[facility] VnnomazYZBKIJPJHR0721-88-59 15:20:000.6[facility] SigqubvBHZVPKTUIV5880-41-80 15:20:001.2[facility] ZXELHSGGPJ3212-64-64 15:20:0072.1[facility] VrolbrmQBIIIZBSXE2305-86-58 15:20:00 2.1[facility] GgqvghiTPKTZGLTDI1838-82-38 15:20:008.7[facility] HermannHEMATOLOGY 2012-12-04 15:20:0016.9[facility] AfsgjtkMDWSPSIYZK4795-52-15 15:20:000.0[facility] ZrxulfiAXPHEOZAOI9366-35-64 15:20:00* Test Item Value Reference Range Interpretation Comments PTT (test code = PTT) 30.0 s 22.9-35.8 N [facility] LnnjrfxBTCCUVOVFA1204-78-01 15:20:00* Test Item Value Reference Range Interpretation Comments PT (test code = PT) 12.8 s 12.0-14.7 N [facility] WcrnzwiRIHVERPUTN1196-33-80 15:20:000.97[facility]annABDOMEN-[facility] (KUB) [place] [address] Patient Name: ZAYNAB FLORES MR #: [id number] : 1965 Age/Sex: 52/M Req #: [id number] Adm Physician: GISELA CARABALLO MD Ordered by: AKOSUA LAMAR MD Report #: [id number] Location: [facility] Room/Bed: [place] [address] Procedure: [id number] DX/A BDOMEN-1VIEW (KUB) Exam Date: 07/09/17 Exam Time: 16 50 REPORT STATUS: Signed PROCEDURE: X-RAY ABDOMEN - KUB COMPARI SON: [facility], CT, CT ABDOMEN AND PELVIS WITHOUT CONTRAST, [...] 17:25 Dic tated By: DHARMESH DANIELS MD 172 COPY TO: AKOSUA LAMAR MD CT ABDOMEN/PELVIS [place] [address] Patient Name: ZAYNAB FLORES MR #: [id number] : 1965 Age/Sex: 52/M Req #: [id number] Adm Physician: Ordered by: TRE SALAS MD Report #: [id number] Location: ER Room/Bed: Procedure: [id number] CT/CT ABDOMEN/PELVIS WO Ex am Date: Exam Time: REPORT STATUS: Signed EXAM: CT ABDOMEN AND PELVIS without IV CONTRAST INDICATION: Abdominal pain, l eft flank pain COMPARISON: CT of the abdomen and pelvis without IV contrast N ovember 2008 TECHNIQUE: The abdomen and pelvis were [...] incr eased on the left compared to 2008. Signed by: Bradly Elise on 07/08/2017 5:45 AM Dictated By: BRISSA HART MD Electronically Penny d By: BRISSA HART MD on 07/08/17 0545 Transcribed By: MICHEAL on 07/08/17 054 5 COPY TO: TRE SALAS MD
== END 2019-11-02 21:32 | disposition home or self-care (01) ==
LOC: FSED 19:20
DX: R50.9 Fever, unspecified (principal); N10 Acute pyelonephritis; E11.65 Type 2 diabetes mellitus with hyperglycemia; N18.9 Chronic kidney disease, unspecified
CPT/HCPCS: 71046; 80053; 81003; 85025; 87086; 99283; J0696 ×2; J1885; J7030

== ENCOUNTER 2019-11-04 08:20 | Inpatient (IN) | payer BC, OTHER ==
[~2019-11-04] VITALS: Ht 177.8 cm; Wt 164.0 kg
[~2019-11-04 08:20] MED LIST changes: +CIPRO500 MG PO
[2019-11-04] MEDS ORDERED: SODIUM CHLORIDE 0.9% 1000ML 1,000 ML IV STA (08:25)
--- OUTSIDE RECORDS SUMMARY | 2019-11-04 08:26 | XMS REPORT | Clinical Summary ---
Author Author [employer] Address Unknown Phone Unavailable Care Team Providers Care Director Investment Banking Name Role Phone Troy Guerrero MD PCP [...] Active glucosam/chond/collagen/h Take by 0 yalur mouth. 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
--- OUTSIDE RECORDS SUMMARY | 2019-11-04 08:27 | XMS REPORT | Continuity of Care Document ---
Author Author [employer], ZAYNAB HANSEN Organization [facility] Address Unknown Phone Unavailable Care Team Providers Care Helper/Driver Name Role Phone [facility] Unavailable Un available Problems Problem Status Onset Date Classification Date Reported Comments Source Superior glenoid labrum lesion of right shoulder, initial encounter 03/25/2018 10/06/2018 [facility] UNK Active 1 05/05/2017 [facility] Impingement syndrome of right shoulder 02/21/2018 09/02/2018 [facility] [place] SHOULDER Active 10/08/2017 [facility] [place] 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 H Active 05/31/2015 [facility] [place] ICD NOT GIVEN / CPT 27661 [id number] Active 12/04/2012 [facility] STONE 592.0 592.1/CPT 25869 17161 Active 12/03/2012 [facility] Incomplete rotator cuff tear or rupture of right shoulder, not specified as traumatic 09/02/2018 [facility] [place] Bicipital tendinitis, right shoulder 09/02/2018 [facility] [place] Effusion, left knee 09/02/2018 [facility] [place] Pain in left knee 09/02/2018 [facility] [place] Acid reflux Active Problem 12/18/2012 [facility] Back pain Active Problem 12/18/2012 1lumbar [facility] Chest pain Resolved Problem 12/18/2012 27 Dx as acid reflux [facility] Foot swelling Active Problem 12/18/2012 [facility] GERD - Gastro-esophageal reflux disease Active Problem 12/18/2012 [facility] HTN - Hypertension Active Problem 12/18/2012 [facility] Obese Active Problem 12/18/2012 [facility] Poor peripheral circulation Re solved Problem 01/2013 3swelling to LE [facility] Renal stone Active Problem 12/18/2012 [facility] Retained ureteral stent Active Problem 12/18/2012 4left [facility] Sleep apnea Active Problem 12/18/2012 5uses CPAP [facility] Strain of muscle, fascia and tendon of l jigna head of biceps, right arm, initial encounter 10/06/2018 [facility] Other synovitis and tenosynovitis, right shoulder 10/06/2018 [facility] Loose body in right shoulder 10/06/2018 [facility] Primary osteoarthritis, right shoulder 10/06/2018 [facility] Morbid (severe) obesity due to excess calories 10/06/2018 [facility] Body mass index (BMI) 50-59.9 , adult 10/06/2018 [facility] Essential (primary) hypertension 10/06/2018 [facility] Gastro-esophageal reflux disease without esophagitis 10/06/2018 [facility] Type 2 diabetes mellitus without complications 10/06/2018 [facility] intermediate (current) use of aspirin 10/06/2018 [facility] Other long term care pharmacist (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 10/06/2018 [facility] Gastroesophageal reflux disease (disorder) Active Problem 10/06/2018 [facility] [place] [place] Backache (finding) Resolved Problem 10/06/2018 lumbar [facility] [place],[facility] [place] Chest pain (finding) Resolved Problem 10/06/2018 7/13 Dx as acid reflux [facility] [place] [place] Diabetes mellitus (disorder) A ctive [facility] [place] Foot swelling (finding) Active Problem 10/06/2018 [facility] Ritter [facility] [place],[facility] [place] Hypertensive disorder, systemic arterial (disorder) Active Problem 10/06/2018 [facility] R[facility] [place] [place] Injury of superior glenoid labrum of sriram ulder joint (disorder) Active Prob hiral 10/06/[facility] [place] Obese (finding) Active Problem 10/06/2018 [facility] R[facility] [place] [place] Poor peripheral circulation (disorder) Resolved Problem 10/06/2018 swelling to LE [facility] [place],[facility] [place] Kidney stone (disorder) Resolv ed Problem [facility] R[facility] [place],[facility] [place] Retained ureteric stent (disorder) Resolved Problem left [facility], [facility] [place], [place] [place] Sleep apnea (finding) Active Problem 10/06/2018 uses CPAP [facility]IONA Ritter, [facility] [place], [place],[facility] [place] Medications Medication Details Route Status Patient Instructions Ordering Provider Order Date Source Ketorolac 15 mg, Route: IVP, Q 6H, Dosing Weight 175, kg, Start date: 03/19/18 12:00:00 [employer] PROJECT MANAGER, Duration: 6 doses or times, Stop date: 03/20/18 18:00:00 SOCIAL MEDIA PROJECT MANAGER Inactive 03/19/2018 [facility] Phenergan 25 mg, Route: IVPB, Q4H, Dosing Weight 175, kg, PRN Nausea & Vomiting, Start date: 03/19/18 10:02:00 SOCIAL MEDIA PROJECT MANAGER, Duration: 30 day, Stop date: 04/18/18 10:01:00 SOCIAL MEDIA PROJECT MANAGER Inactive 03/19/2018 [facility] Zofran 4 mg, Route: IV, Drug f orm: INJ, Q4H, Dosing Weight 175, kg, PRN Nausea, Start date: 03/19/18 10:02:00 SOCIAL MEDIA PROJECT MANAGER, Duration: 30 day, Stop date: 04/18/18 10:01:00 SOCIAL MEDIA PROJECT MANAGER Inactive 03/19/2018 [facility] Morphine 2 mg, Route: IVP, Q3H , Dosing Weight 175, kg, PRN Pain Score 1-3, Start date: 03/19/18 10:02:00 SOCIAL MEDIA PROJECT MANAGER, Duration: 30 day, Stop date: 04/18/18 10:01:00 SOCIAL MEDIA PROJECT MANAGER Inactive 03/19/2018 [facility] Tramadol 50 mg, Route: PO, Donovan g form: TAB, Q6H, Dosing Weight 175, kg, PRN Pain Score 1-3, Start date: 03/19/18 10:02:00 SOCIAL MEDIA PROJECT MANAGER, Duration: 30 day, Stop date: 04/18/18 10:01:00 SOCIAL MEDIA PROJECT MANAGER Inactive 03/19/2018 [facility] Hydromorphone 0.3 mg, Route: I STOCK CONTROL SUPERVISOR, Q3H, Dosing Weight 175, kg, PRN Pain Score 4-6, Start date: 03/19/18 10:02:00 SOCIAL MEDIA PROJECT MANAGER, Duration: 30 day, Stop date: 04/18/18 10:01:00 SOCIAL MEDIA PROJECT MANAGER Inactive 03/19/2018 [facility] Acetaminophen 325 MG / Hydrocodone Deangelo trate 5 MG Oral Tablet Route: PO, Dosing Weight 175, kg, Q4H, P RN Pain Score 4-6, Start date: 03/19/18 10:02:00 SOCIAL MEDIA PROJECT MANAGER, Duration: 30 day, Stop date: 04/18/18 10:01:00 SOCIAL MEDIA PROJECT MANAGER Inactive 03/19/2018 [facility] ceFAZolin (ANES) Route: IV, Dr ug form: INJ, ONCE, Stop date: 03/19/18 8:57:00 SOCIAL MEDIA PROJECT MANAGER Inactive 03/19/2018 [facility] neostigmine (ANES) Route: IV, Drug form: INJ, ONCE, Stop date: 03/19/18 8:57:00 SOCIAL MEDIA PROJECT MANAGER Inactive 03/19/2018 [facility] glycopyrrolate (ANES) Route: I V, Drug form: INJ, ONCE, Stop date: 03/19/18 8:57:00 SOCIAL MEDIA PROJECT MANAGER Inactive 03/19/2018 [facility] propofol (ANES) Route: IV, Donovan g form: INJ, ONCE, Stop date: 03/19/18 8:57:00 SOCIAL MEDIA PROJECT MANAGER Inactive 03/19/2018 [facility] rocuronium (ANES) Route: IV, D rug form: INJ, ONCE, Stop date: 03/19/18 8:57:00 SOCIAL MEDIA PROJECT MANAGER Inactive 03/19/2018 [facility] famotidine (ANES) Route: IV, D rug form: INJ, ONCE, Stop date: 03/19/18 8:57:00 SOCIAL MEDIA PROJECT MANAGER Inactive 03/19/2018 [facility] acetaminophen (ANES) Route: IV , Drug form: INJ, ONCE, Stop date: 03/19/18 8:57:00 SOCIAL MEDIA PROJECT MANAGER Inactive 03/19/2018 [facility] metoclopramide (ANES) Route: I V, Drug form: INJ, ONCE, Stop date: 03/19/18 8:57:00 SOCIAL MEDIA PROJECT MANAGER Inactive 03/19/2018 [facility] ondansetron (ANES) Route: IV, Drug form: INJ, ONCE, Stop date: 03/19/18 8:57:00 SOCIAL MEDIA PROJECT MANAGER Inactive 03/19/2018 [facility] vancomycin (ANES) Route: IV, D rug form: INJ, ONCE, Stop date: 03/19/18 8:57:00 SOCIAL MEDIA PROJECT MANAGER Inactive 03/19/2018 [facility] lidocaine (ANES) Route: IV, Dr ug form: INJ, ONCE, Stop date: 03/19/18 8:57:00 SOCIAL MEDIA PROJECT MANAGER Inactive 03/19/2018 [facility] Naloxone 0.04 mg, Route: IVP, Q2MIN, Dosing Weight 175, kg, PRN Narcotic Reversal, Start date: 03/19/18 8:33:00 SOCIAL MEDIA PROJECT MANAGER, Duration: 30 day, Stop date: 04/18/18 8:32:00 SOCIAL MEDIA PROJECT MANAGER Inactive 03/19/2018 [facility] Lactated Ringers IV 1000 mL 1, 000 mL, Rate: 100 ml/hr, Infuse over: 10 hr, Route: IV, Dosing Weight 175 kg, Total Volume: 1,000, Start date: 03/19/18 8:33:00 SOCIAL MEDIA PROJECT MANAGER, Duration: 30 day, Stop date: 04/18/18 8:32:00 SOCIAL MEDIA PROJECT MANAGER, 3.03, m2 Inactive 03/19/2018 [facility] Lactated Ringers Injection IV (ANES) 1000 mL Route: IV, Total Volume: 1,000, Start date: 03/19/18 7:53:00 SOCIAL MEDIA PROJECT MANAGER, Stop date: 03/19/18 8:53:00 SOCIAL MEDIA PROJECT MANAGER Inactive 03/19/2018 [facility] Calcium Chloride 0.0014 MEQ/ML / [place]ass[place] um Chloride 0.004 MEQ/ML / Sodium Chloride 0.103 MEQ/ML / Sodium Lactate 0.028 MEQ/ML Injectable Solution 1,000 mL, Rate: 25 ml/hr, Infuse over: 4 0 hr, Route: IV, Dosing Weight 175 kg, Total Volume: 1,000, Start date: 03/19/18 6:56:00 SOCIAL MEDIA PROJECT MANAGER, Duration: 30 day, Stop date: 04/18/18 6:55:00 SOCIAL MEDIA PROJECT MANAGER, 3.03, m2 Inactive 03/19/2018 [facility] clindamycin 300 mg oral capsule 300 mg = 1 cap, PO, TID, X 15 day, # 45 cap, 0 Refill(s) No Longer Active 03/19/2018 [facility] meclizine 25 mg oral tablet 25 mg = 1 tab, PO, PRN, 0 Refill(s) Active 03/13/2018 [facility] Metformin hydrochloride 500 MG Oral Tablet 500 mg = 1 tab, PO, Bedtime, 0 Refill(s) Active 03/13/2018 [facility] pantoprazole 40 mg oral enteric coated tablet 40 mg = 1 tab, PO, Daily, 0 Refill(s) Active 03/13/2018 [facility] Amlodipine 5 MG / valsartan 320 MG Oral Tablet 1 tab, PO, Daily, # 30 tab, 0 Refill(s) Active 03/13/2018 [facility] Glucosamine Chondroitin PO, Da melly, 0 Refill(s) Active 03/13/2018 [facility] Super B Complex oral tablet PO , Daily, 0 Refill(s) Active 03/13/2018 [facility] dapagliflozin propanediol 10 MG Oral Tablet [Stefanxiga] 10 mg = 1 tab, PO, Daily, 0 Refill(s) Active 03/13/2018 [facility] ketorolac 15 mg, 1 mL, Route: IVP, Drug form: INJ, Q6H, Dosing Weight 193.182, kg, Start date: 12/11/12 18:00:00, Duration: 6 doses or times, Stop date: 12/13/12 0:00:00 IVP No Longer Active Ceasar 12/11/2012 [facility] Lactated Ringers Injection IV 1000 mL 1,000 mL, Rate: 50 ml/hr, Infuse over: 20 hr, Route: IV, Dosing Weight 193.182 kg, Total Volume: 1,000, Start date: 12/11/12 13:42:00, Duration: 30 day, Stop date: 01/10/13 13:41:00 IV No Longer Active Johan 12/11/2012 [facility] acetaminophen-hydrocodone 325 mg-5 mg oral tablet 1 tab, Route: PO, Dosing Weight 193.182, kg, Q4H, PRN Pain Score 1-3, Start date: 12/11/12 13:42:00, Duration: 30 day, Stop date: 01/10/13 13:41:00 PO No Longer Active Johan 12/11/2012 [facility] naloxone 0.04 mg, Route: IVP, Q2MIN, Dosing Weight 193.182, kg, PRN Narcotic Reversal, Start date: 12/11/12 13:42:00, Duration: 8 doses or times, Stop date: Limited # of times IVP No Longer Active Johan 12/11/2012 [facility] ondansetron 4 mg, Route: IVP, ONCE, Dosing Weight 193.182, kg, PRN Nausea & Vomiting, Start date: 12/11/12 13:42:00 IVP No Longer Active Johan 12/11/2012 [facility] hydromorphone 0.5 mg, Route: I STOCK CONTROL SUPERVISOR, Q5Min, Dosing Weight 193.182, kg, PRN Pain Score 7-10, Start date: 12/11/12 13:42:00, Duration: 5 doses or times, Stop date: Limited # of times IVP No Longer Active [facility] 12/11/2012 [facility] fentanyl 25 microgram, Route: IVP, Q5Min, Dosing Weight 193.182, kg, PRN Pain Score 4-6, Start date: 12/11/12 13:42:00, Duration: 4 doses or times, Stop date: Limited # of times IVP No Longer Active Carmen 12/11/2012 [facility] flumazenil 0.2 mg, Route: IVP, PRN, Dosing Weight 193.182, kg, PRN Benzodiazepine Reversal, Initial dose, Start date: 12/11/12 13:42:00, Duration: 30 day, Stop date: 01/10/13 12:41:00 IVP No Longer Active [facility] 12/11/2012 [facility] morphine Sulfate 2 mg, 1 mL, R oute: IVP, Drug form: INJ, Q3H, Dosing Weight 193.182, kg, PRN Pain Score 1-3, Start date: 12/11/12 13:27:00, Duration: 30 day, Stop date: 01/10/13 13:26:00 IVP No Longer Active Nicolas 12/11/2012 [facility] acetaminophen-hydrocodone 325 mg-10 mg oral tablet 1 tab, Route: PO, Drug Form: TAB, Dosing Weight 193.182, kg, Q4H, PRN Pain Score 4-6, Start date: 12/11/12 13:27:00, Duration: 30 day, Stop date: 01/10/13 13:26:00 PO No Longer Active Nicolas 12/11/2012 [facility] gentamicin + Sodium Chloride 0.9% IV 100 mL 120 mg, 3 mL, Route: IVPB, Drug form: INJ, ONCALL, Dosing Weight 193.182, kg, Start date: 12/11/12 13:00:00, Duration: 30 day, Stop date: 01/10/13 11:59:00 IVPB No Longer Active Nicolas 12/11/2012 [facility] Levaquin 500 mg, 100 mL, Route : IV, Drug form: INJ, ONCALL, Dosing Weight 193.182, kg, Start date: 12/11/12 13:00:00 IV No Longer Active Nicolas 12/11/2012 [facility] Lactated Ringers Injection IV 1000 mL 1,000 mL, Rate: 25 ml/hr, Infuse over: 40 hr, Route: IV, Dosing Weight 193.182 kg, Total Volume: 1,000, Start date: 12/11/12 11:27:00, Duration: 30 day, Stop date: 01/10/13 11:26:00 IV No Longer Active Nick 12/11/2012 [facility] labetalol 5 mg, Route: IVP, Q5 Min, Dosing Weight 193.182, kg, PRN Elevated BP, Start date: 12/04/12 13:04:00, Duration: 5 doses or times, Stop date: Limited # of times IVP No Longer Active [place] 12/04/2012 [facility] esmolol IV Push 10 mg, Route: IVP, Q5Min, Dosing Weight 193.182, kg, PRN Elevated BP, Start date: 12/04/12 13:04:00, Duration: 5 doses or times, Stop date: Limited # of times IVP No Longer Active [place] 12/04/2012 [facility] hydrALAZINE 5 mg, Route: IVP, Q5Min, Dosing Weight 193.182, kg, PRN Elevated BP, Start date: 12/04/12 13:04:00, Duration: 4 doses or times, Stop date: Limited # of times IVP No Longer Active [place] 12/04/2012 [facility] acetaminophen-hydrocodone 325 mg-5 mg oral tablet 1 tab, Route: PO, Dosing Weight 193.182, kg, Q4H, PRN Pain Score 1-3, Start date: 12/04/12 13:04:00, Duration: 30 day, Stop date: 01/03/13 13:03:00 PO No Longer Active [place] 12/04/2012 [facility] hydromorphone 0.5 mg, Route: I STOCK CONTROL SUPERVISOR, Q5Min, Dosing Weight 193.182, kg, PRN Pain Score 7-10, Start date: 12/04/12 13:04:00, Duration: 5 doses or times, Stop date: Limited # of times IVP No Longer Active [place] 12/04/2012 [facility] ketorolac 30 mg, Route: IVP, O NCE, Dosing Weight 193.182, kg, Start date: 12/04/12 13:04:00, Duration: 1 doses or times, Stop date: 12/04/12 13:04:00 IVP Active [place] 12/04/2012 [facility] naloxone 0.04 mg, Route: IVP, Q2MIN, Dosing Weight 193.182, kg, PRN Narcotic Reversal, Start date: 12/04/12 13:04:00, Duration: 8 doses or times, Stop date: Limited # of times IVP No Longer Active [place] 12/04/2012 [facility] dexamethasone 4 mg, Route: IVP , ONCE, Dosing Weight 193.182, kg, PRN Nausea & Vomiting, Start date: 12/04/12 13:04:00 IVP No Longer Active [place] 12/04/2012 [facility] ondansetron 4 mg, Route: IVP, ONCE, Dosing Weight 193.182, kg, PRN Nausea & Vomiting, Start date: 12/04/12 13:04:00 IVP No Longer Active [place] 12/04/2012 [facility] flumazenil 0.2 mg, Route: IVP, PRN, Dosing Weight 193.182, kg, PRN Benzodiazepine Reversal, Initial dose, Start date: 12/04/12 13:04:00, Duration: 30 day, Stop date: 01/03/13 13:03:00 IVP No Longer Active [place] 12/04/2012 [facility] morphine Sulfate 2 mg, Route: IVP, Q3H, Dosing Weight 193.182, kg, PRN Pain Score 1-3, Start date: 12/04/12 12:57:00, Duration: 30 day, Stop date: 01/03/13 12:56:00 IVP No Longer Active [facility] 12/04/2012 [facility] acetaminophen-hydrocodone 325 mg-10 mg oral tablet 1 tab, Route: PO, Dosing Weight 193.182, kg, Q4H, PRN Pain Score 4-6, Start date: 12/04/12 12:57:00, Duration: 30 day, Stop date: 01/03/13 12:56:00 PO No Longer Active Ceasar 12/04/2012 [facility] gentamicin 120 mg, Route: IVPB , ONCE, Dosing Weight 193.182, kg, Start date: 12/04/12 11:27:00, Stop date: 12/04/12 11:27:00 IVPB No Longer Active Nicolas 11/09 [facility] Levaquin 500 mg, Route: IVPB, ONCE, Dosing Weight 193.182, kg, Start date: 12/04/12 11:27:00, Stop date: 12/04/12 11:27:00 IVPB No Longer Active Nicolas 11/09 [facility] Lactated Ringers Injection IV 1000 mL 1,000 mL, Rate: 25 ml/hr, Infuse over: 40 hr, Route: IV, Dosing Weight 193.182 kg, Total Volume: 1,000, Start date: 12/04/12 11:05:00, Duration: 30 day, Stop date: 01/03/13 11:04:00 IV No Longer Active Andrea 12/04/2012 [facility] tamsulosin 0.4 mg oral capsule 0.4 mg, 1 cap, PO, Daily, 30 cap, Substitution Allowed, CAP PO Active 12/04/2012 [facility] Zofran 4 mg oral tablet PO, ME N, Substitution Allowed PO Active 12/04/2012 [facility] Cipro PO, Q12H, Substitution A llowed PO Active 12/04/2012 [facility] Aspirin Low Dose 81 mg oral tablet PO, Daily, Substitution Allowed PO Active 12/04/2012 [facility] meloxicam 15 mg oral tablet 15 mg, 1 tab, PO, Daily, 30 tab, Substitution Allowed, TAB PO Active 12/04/2012 [facility] hydrochlorothiazide-triamterene 25 mg-37 .5 mg oral capsule 1 cap, PO, Daily, 30 cap, Substitution A llowed, Maintenance, CAP PO Active 12/04/2012 [facility] amLODipine 5 mg oral tablet 5 mg, 1 tab, PO, Daily, 30 tab, Substitution Allowed, TAB PO Active 12/04/2012 [facility] Bystolic 10 mg oral tablet 10 mg, 1 tab, PO, Daily, 30 tab, Substitution Allowed, TAB PO Active 12/04/2012 [facility] atorvastatin 20 mg oral tablet 20 mg, 1 tab, PO, Daily, 30 tab, Substitution Allowed, TAB PO Active 12/04/2012 [facility] Diovan 320 mg oral tablet 320 mg, 1 tab, PO, Daily, 90 tab, Substitution Allowed, TAB PO Active 12/04/2012 [facility] lansoprazole 30 mg oral delayed release capsule 30 mg, 1 cap, PO, Daily, 30 cap, Substitution Allowed PO Active 12/04/2012 [facility] Allergies, Adverse Reactions, Alerts Substance Category Reaction Severity Reaction type Status Date Reported Comments Source penicillins Assertion Drug allergy Active [facility] Immunizations No Data Provided for This [...] should be multiplied by the estimated BMI. [facility] CHEM PANEL BUN 16 7 - 22 03/13/2018 [facility] CHEM PANEL Creatinine Lvl 1.16 0.50 - 1.40 03/13/2018 [facility] CHEM PANEL Glucose Lvl 135 70 - 99 03/13/2018 [facility] CHEM PANEL Sodium Lvl 140 135 - 145 03/13/2018 [facility] CHEM PANEL Potassium Lvl 3.8 3.5 - 5.1 03/13/2018 [facility] CHEM PANEL Calcium Lvl 9.0 8.5 - 10.5 03/13/2018 [facility] CHEM PANEL CO2 30 24 - 32 03/13/2018 [facility] CHEM PANEL Chloride Lvl 104 95 - 109 03/13/2018 [facility] CHEM PANEL AGAP 9.8 10.0 - 20.0 03/13/2018 [facility] HEMATOLOGY Monocytes 8.3 2.0 - 12.0 03/13/2018 [facility] HEMATOLOGY Segs 59.7 45.0 - 75.0 03/13/2018 [facility] HEMATOLOGY Lymphocytes 28.6 20.0 - 40.0 03/13/2018 [facility] HEMATOLOGY Eosinophils 2.9 0.0 - 4.0 03/13/2018 [facility] HEMATOLOGY Monocytes # 0.7 0.0 - 0.8 03/13/2018 [facility] HEMATOLOGY Eosinophils # 0.3 0.0 - 0.5 03/13/2018 [facility] HEMATOLOGY Basophils 0.5 0.0 - 1.0 03/13/2018 [facility] HEMATOLOGY Neutrophils # 5.3 1.5 - 8.1 03/13/2018 [facility] HEMATOLOGY Lymphocytes # 2.6 1.0 - 5.5 03/13/2018 [facility] HEMATOLOGY Platelet 229 133 - 450 03/13/2018 [facility] HEMATOLOGY RDW 15.1 11.5 - 14.5 03/13/2018 [facility] MPV 8.8 7.4 - 10.4 03/13/2018 [facility] Hgb 14.3 14.0 - 18.0 03/13/2018 [facility] WBC 8.9 3.7 - 10.4 03/13/2018 [facility] HEMATOLOGY RBC 5.11 4.70 - 6.10 03/13/2018 [facility] HEMATOLOGY Hct 43.2 42.0 - 54.0 03/13/2018 [facility] MCHC 33.1 32.0 - 36.0 03/13/2018 [facility] MCH 28.0 27.0 - 31.0 03/13/2018 [facility] HEMATOLOGY MCV 84.6 80.0 - 94.0 03/13/2018 [facility] SPECIAL CHEMISTRY Hgb A1C 7.8 <=5.6 % 03/13/2018 [facility] URINALYSIS UA Color [place] 12/09/2012 NA [facility] URINALYSIS UA RBC >182 0 - 2 12/09/2012 [facility] URINALYSIS UA Sq Epi Occas ional /LPF *NA* (12/09/2012 13:30:00) Few 12/09/2012 NA [facility] URINALYSIS UA WBC 9 0 - 5 12/09/2012 [facility] URINALYSIS UA Turbidity Clear (12/09/2012 13:30:00) Clear 12/09/2012 Normal [facility] URINALYSIS UA Protein Negat tone mg/dL (12/09/2012 13:30:00) Negati ve 12/09/2012 Normal [facility] URINALYSIS UA pH 5.0 5.0 - 8.0 12/09/2012 Normal [facility] URINALYSIS UA Spec Grav 1.015 <=1.030 12/09/2012 Normal [facility] URINALYSIS UA Blood Large *ABN* (12/09/2012 13:30:00) Negati ve 12/09/2012 ABN [facility] URINALYSIS UA Urobilinogen 2.0 0.1 - 1.0 12/09/2012 HI [facility] URINALYSIS UA Nitrite Posit tone *ABN* (12/09/2012 13:30:00) Negati ve 12/09/2012 ABN [facility] URINALYSIS UA Leuk Est Negat tone (12/09/2012 13:30:00) Negati ve 12/09/2012 Normal [facility] URINALYSIS UA Glucose Negat tone mg/dL *NA* (12/09/2012 13:30:00) Negati ve 12/09/2012 NA [facility] URINALYSIS UA Ketones Negat tone mg/dL *NA* (12/09/2012 13:30:00) Negati ve 12/09/2012 NA [facility] URINALYSIS UA Bili Negat tone *NA* (12/09/2012 13:30:00) Negati ve 12/09/2012 NA [facility] Microbiology Culture: Urine 12/09/2012 [facility] CHEMISTRY eGFR 78 12/04/2012 NA <sup>1</sup>Result [...] should be multiplied by the estimated BMI. [facility] CHEMISTRY CO2 29 24 - 32 12/04/2012 Normal [facility] CHEMISTRY Creatinine Lvl 1.1 0.5 - 1.4 12/04/2012 Normal [facility] CHEMISTRY Glucose Lvl 175 70 - 99 12/04/2012 [place] <sup>2</sup>Interpretive Data: Adult ref erence range values reflect the clinical guidelines
of the [place] [employer]. [facility] CHEMISTRY BUN 15 7 - 22 12/04/2012 Normal [facility] CHEMISTRY Calcium Lvl 8.7 8.5 - 10.5 12/04/2012 Normal [facility] CHEMISTRY Potassium Lvl 3.9 3.5 - 5.1 12/04/2012 Normal [facility] CHEMISTRY Sodium Lvl 144 135 - 145 12/04/2012 Normal [facility] CHEMISTRY Chloride Lvl 107 95 - 109 12/04/2012 Normal [facility] CHEMISTRY AGAP 11.9 10.0 - 20.0 12/04/2012 Normal [facility] HEMATOLOGY Hgb 11.7 14.0 - 18.0 12/04/2012 LOW [facility] HEMATOLOGY MCV 83.6 80.0 - 94.0 12/04/2012 Normal [facility] HEMATOLOGY Hct 36.1 42.0 - 54.0 12/04/2012 LOW [facility] HEMATOLOGY RDW 14.2 11.5 - 14.5 12/04/2012 Normal [facility] HEMATOLOGY Platelet 217 133 - 450 12/04/2012 Normal [facility] HEMATOLOGY MPV 8.7 7.4 - 10.4 12/04/2012 Normal [facility] HEMATOLOGY RBC 4.32 4.70 - 6.10 12/04/2012 LOW [facility] HEMATOLOGY MCHC 32.3 32.0 - 36.0 12/04/2012 Normal [facility] HEMATOLOGY MCH 27.0 27.0 - 31.0 12/04/2012 Normal [facility] HEMATOLOGY WBC 7.0 3.7 - 10.4 12/04/2012 Normal [facility] HEMATOLOGY Segs-Bands # 5.0 1.5 - 8.1 12/04/2012 Normal [facility] HEMATOLOGY Basophils 0.2 0.0 - 1.0 12/04/2012 Normal [facility] HEMATOLOGY Eosinophils # 0.1 0.0 - 0.5 12/04/2012 Normal [facility] [facility] HEMATOLOGY Monocytes # 0.6 0.0 - 0.8 12/04/2012 Normal [facility] HEMATOLOGY Lymphocytes # 1.2 1.0 - 5.5 12/04/2012 Normal [facility] HEMATOLOGY Segs 72.1 45.0 - 75.0 12/04/2012 Normal [facility] HEMATOLOGY Eosinophils 2.1 0.0 - 4.0 12/04/2012 Normal [facility] HEMATOLOGY Monocytes 8.7 2.0 - 12.0 12/04/2012 Normal [facility] Lymphocytes 16.9 20.0 - 40.0 12/04/2012 LOW [facility] Basophils # 0.0 0.0 - 0.2 12/04/2012 Normal [facility] PTT 30.0 22.9 - 35.8 12/04/2012 Normal <sup>4</sup>Interpretive Data: Heparin T herapeutic Range: 57 - 92 Seconds [facility] PT 12.8 12.0 - 14.7 12/04/2012 Normal [facility] INR 0.97 0.85 - 1.17 12/04/2012 Normal <sup>3</sup>Interpretive Data: RECOMMEND ED RANGES FOR PROTIME INR:
2.0-3.0 for most medical and surgical thromboembolic states.
2.5-3.5 for artificial heart valves and recurrent embolism.

INR SHOULD BE USED ONLY FOR PATIENTS ON STABLE ANTICOAGULANT THERAPY. 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 3. Normal orbits 06/16/2015 [facility] [place] Abdomen AP view Spot images fr om Cystoscopy show a left ureteral stent in good position. SL:13 12/11/2012 [facility] Kidney pyelogram retrograde RE TROGRADE PYELOGRAPHY COMPARISON: None IMPRESSION: Multiple fluoroscopic spot radiographs are submitted, demonstrating bilateral retrograde pyelography. Refer to the operating clinician's report for further discussion. SL: 13 12/04/2012 [facility] Consultation Notes No Data Provided for This Section Discharge Summaries No Data Provided for This Section History and Physicals No Data Provided for This Section Vital Signs Vital Sign Value Date Comments Source Systolic (mm Hg) 130 03/19/2018 [facility] Diastolic (mm Hg) 67 03/19/2018 [facility] Systolic (mm Hg) 141 03/19/2018 [facility] Diastolic (mm Hg) 69 03/19/2018 [facility] Systolic (mm Hg) 123 03/19/2018 [facility] Diastolic (mm Hg) 54 03/19/2018 [facility] Respitory Rate 19 03/19/2018 [facility] Respitory Rate 19 03/19/2018 [facility] Respitory Rate 23 03/19/2018 [facility] Heart Rate 79 03/19/2018 [facility] Heart Rate 75 03/19/2018 [facility] Temperature Oral (F) 97.9 F 03/13/2018 [facility] Heart Rate 65 03/13/2018 [facility] Height 182.88 cm 03/13/2018 [facility] Weight 175 03/13/2018 [facility] BMI Calculated 52.32 03/13/2018 [facility] Systolic (mm Hg) 156 12/11/2012 [facility] Diastolic (mm Hg) 55 12/11/2012 [facility] Diastolic (mm Hg) 72 12/11/2012 [facility] Systolic (mm Hg) 150 12/11/2012 [facility] Respitory Rate 17 12/11/2012 [facility] Systolic (mm Hg) 135 12/11/2012 [facility] Diastolic (mm Hg) 65 12/11/2012 [facility] Respitory Rate 14 12/11/2012 [facility] Respitory Rate 18 12/11/2012 [facility] Heart Rate 66 12/11/2012 [facility] Temperature Oral (F) 98.3 F 12/09/2012 [facility] Heart Rate 74 12/09/2012 [facility] Height 177.8 cm 12/09/2012 [facility] Weight 193.182 12/09/2012 [facility] Diastolic (mm Hg) 70 12/04/2012 [facility] Systolic (mm Hg) 144 12/04/2012 [facility] Respitory Rate 19 12/04/2012 [facility] Systolic (mm Hg) 146 12/04/2012 [facility] Diastolic (mm Hg) 75 12/04/2012 [facility] Systolic (mm Hg) 145 12/04/2012 [facility] Diastolic (mm Hg) 63 12/04/2012 [facility] Respitory Rate 16 12/04/2012 [facility] Respitory Rate 18 12/04/2012 [facility] Heart Rate 73 12/04/2012 [facility] Temperature Oral (F) 98.3 F 12/04/2012 [facility] Weight 193.182 12/04/2012 [facility] Height 177.8 cm 12/04/2012 [facility] Encounters Location Location Details Encounter Type Encounter Number Reason For Visit Attending Provider ADM Date DC Date Status Source [facility] DS [id number] MARIANN CEASAR 12/04/2012 12/04/[address] [facility] DS [id number] [facility] CEASAR 12/11/2012 12/11/2012 Discharged [facility] - [place] [facility] [id number] 00 Baltazar Guerrero 06/16/2015 06/17/2015 [facility] [place] [facility] Out[facility] [id number] Oswald Wyatt 02/12/2018 02/13/2018 [facility] Day Surgery [id number] Oswald Fontanezn 03/19/2018 03/19/2018 [facility] [place] OP Therapy Patients [id number] Oswald Wyatt 04/07/2018 05/07/2018 [facility] [place] OP Therapy Patients [id number] Oswald Fontanezn 05/07/2018 06/06/2018 [facility] [place] Procedures Procedure Code Date Perfomer Comments Source Injection procedure for shoulder arthrog bakari or enhanced CT/MRI shoulder arthrography 14981 02/12/2018 [facility] Cystourethroscopy, with insertion of ind welling ureteral stent (eg, De [place] or double-J type) [id number] 12/11/2012 [facility] Cystourethroscopy, with ureteroscopy and /or pyeloscopy; with removal or manipulation of calculus (ureteral catheterization is included) 55259 12/11/2012 [facility] Transurethral Removal of Obstruction fro m Ureter and Renal Pelvis [id number] 12/11/2012 [facility] Ureteral Catheterization [id number] 953 12/11/2012 [facility] Shoulder joint operations<sup>1</sup> [id number] 03/10/2010 SLAP tear [facility] Harika casillas 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 [id number] 03/10/2007 [facility], [facility] [place] 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<sup>1</sup> [id number] bone graft & metal plate [facility] [place] Shoulder joint operations 1794 [id number] [facility] [place] Stent placement [id number] [facility] Ablation [id number] [facility] Cardiac catheterization [id number] 19 [facility] Cholecystectomy [id number] [facility] 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 <sup>1</sup> [id number] 1bone graft & metal plate [facility] Lithotripsy [id number] [facility] Shoulder joint operations 2776 07701 [facility] 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 [id number] [facility] Ablation [id number] [facility] [place], [facility] [place], [facility] [place] Arthroplasty of knee [id number] [facility] [place],[facility] [place] Cardiac catheterization [id number] 01 [facility] [place], [facility] [place],[facility] [place] Cholecystectomy [id number] [facility] [place], [facility] [place],[facility] [place] 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<sup>2</sup> [id number] bone graft & metal plate [facility] [place] Lithotripsy [id number] [facility] [place], [facility] [place],[facility] [place] Stent placement [phone] [facility], [facility] [place],[facility] [place] Assessment and Plan No Data Provided for This Section Plan of Care No Data Provided for This Section Social History Social History Date Source Social History TypeResponse Substance Abuse Use: None. Alcohol Never Smoking Status Never smoker; Exposure to Tobacco Smoke None; Cigarette Smoking Last 365 Days No; Reg Smoking Cessation Counseling No entered on: 03/13/18 03/13/2018 [facility] [place] Social History TypeResponse Substance Abuse Use: None. [...]
--- OUTSIDE RECORDS SUMMARY | 2019-11-04 08:28 | XMS REPORT | Continuity of Care Document ---
Author Author [facility] t Organization [facility] Address [address] [place] [address] Phone Unavailable Care Team Providers Care [employer] Business Representative Name Role Phone DO KARTHIKEYAN GUERRERO DO [...] S jasen [employer] Ppo [id number] 2019 00:00:00 [facility] Problems Condition Name Condition Details Condition Category Status Onset Date Resolution Date Last Treatment Date Treating Clinician Comments Source LANG CROFT Active 03/04/2018 [facility] Active 2018-03-04 00:00:00 2018-03-19 06:00:00 M lucinda Ritter RT SHOULDER RT S SIMI Active 10/08/2017 [facility] Active 2017-10-08 08:00:00 2018-05-07 15:58:00 [facility] Stone 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 H 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 H Active 05/31/2015 FIONA Christy Diagnosis Active 2015-05-31 00:01:00 2015-06-16 12:29:00 M lucinda Gagnonann ICD NOT GIVEN / CPT 04894 [id number] ICD NOT GIVEN / CPT 39134 [id number] Active 12/04/2012 [facility] Ac tive 2012-12-04 00:00:00 2012-12-11 09:31:00 M zeinabriphyllis Ritter STONE 592.0 592.1/CPT 77676 41937 STONE 592.0 592.1/CPT 55251 88306 Active 12/03/2012 [facility] Active 12-03 00:00:00 2012-12-04 09:25:00 [facility] arora Fever Fever Problem Active [facility] Pneumonia Pneumonia Problem Active [facility] Pyelonephritis Pyelonephritis Problem Active [facility] Hydronephrosis Hydronephrosis Problem Active [facility] Renal insufficiency Renal insufficiency Problem Active [facility] Calculus of ureter Ureterolithiasis Problem Active [facility] Acute pyelonephritis Problem Active [facility] Dehydration Problem Active [facility] Chronic renal failure Problem Active [facility] Hyperglycemia Problem Active [facility] Diabetes mellitus Problem Active [facility] Incomplete rotator cuff tear or rupture of right shoulder, not specified as traumatic Incomplete rotat or cuff tear or rupture of right shoulder, not specified as traumatic 09/02/2018 FIONA Ritter Problem 2018-09-02 11:20:31 [facility] Bicipital tendinitis, right shoulder Bicipital tendinitis, right shoulder 09/02/2018 FIONA Ritter Problem 2018-09-02 11:20:31 [facility] Effusion, left knee Effu altagracia, left knee 09/02/2018 [facility] [place] Problem 2018-09-02 11:20:31 [facility] Pain in left knee Pain in left knee 09/02/2018 [facility] [place] Problem 2018-09-02 11:20:31 [facility] Strain of muscle, fascia and tendon of l jigna head of biceps, right arm, initial encounter Strain of muscle , fascia and tendon of long head of biceps, right arm, initial encounter 10/06/2018 [facility] Problem 2018-10-06 14:18:02 [facility] Other synovitis and tenosynovitis, right shoulder Other synovitis and tenosynovitis, right shoulder 10/06/2018 [facility] Problem 2018-10-06 14:18:02 [facility] Her arora Loose body in right shoulder L oose body in right shoulder 10/06/2018 [facility] Problem 2018-10-06 14:1 8:02 [facility] Primary osteoarthritis, right shoulder Primary osteoarthritis, right shoulder 10/06/2018 [facility] Problem 2018-10-06 14:18:02 [facility] Morbid (severe) obesity due to excess calories Morbid (severe) obesity due to excess calories 10/06/2018 [facility] 2018-10-06 14:18:02 [facility] Body mass index (BMI) 50-59.9 , adult Body mass index (BMI) 50-59.9 , adult 10/06/2018 [facility] 2018-10-06 14:18:02 [facility] Essential (primary) hypertension Essential (primary) hypertension 10/06/2018 [facility] Problem 2018-10-06 14:18:02 [facility] Gastro-esophageal reflux disease without esophagitis Gastro-esophageal reflux disease without esophagitis 10/06/2018 [facility] 2018-10-06 14:18:02 [facility] Type 2 diabetes mellitus without complications Type 2 diabetes mellitus without complications 10/06/2018 [facility] 2018-10-06 14:18:02 [facility] superintendent terminal (current) use of aspirin superintendent terminal (current) use of aspirin 10/06/2018 [facility] 2018-09-09 0 14:18:02 [facility] 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 10/06/2018 [facility] Problem 2018-10-06 14:18:02 [facility] Chest pain Ches t pain Resolved Problem 12/18/2012 27/13 Dx as acid reflux [facility] Problem Resolved 2012-12-18 02: 08:29 [facility] Poor peripheral circulation Po or peripheral circulation Resolved Problem 12/18/2012 3swelling to LE [facility] Problem Resolved 2012-12-18 02:08:29 Jyoti Ritter Backache (finding) Back ache (finding) Resolved Problem 10/06/2018 lumbar FIONA Ritter, OPILexi Many,[facility], [facility] Problem Resolved 2018-10-06 14:18:02 Jyoti Ritter Chest pain (finding) Ches t pain (finding) Resolved Problem 10/06/2018 7/13 Dx as acid reflux FIONA Ritter, OPILexi Many,[facility], [facility] Problem Resolved 2018-10-06 14:18:02 Jyoti Stone Poor peripheral circulation (disorder) Poor peripheral circulation (disorder) Resolved Problem 10/06/2018 swelling to LE FIONA Ritter, FIONA Many,[facility] Many Problem Resolved 2018-10-06 14:18:02 Jyoti Ritter Kidney stone (disorder) Kidn ey stone (disorder) Resolved Problem 10/06/2018 FIONA Ritter, FIONA Many,[facility] Many Problem Resolved 2018-10-06 14:18:02 Jyoti Ritter Retained ureteric stent (disorder) Retained ureteric stent (disorder) Resolved Problem 10/06/2018 left FIONA Ritter, FIONA Christy,[facility] Many Problem Resolved 2018-10-06 14:18:0 2 Jyoti Stone Acid reflux Acid reflux Active Problem 12/18/2012 [facility] Problem Active 2012-12-18 02:08:29 Co moriphyllis Ritter Back pain Back pain Active Problem 12/18/2012 1lumbar [facility] Problem Active 2012-12-18 02:08:29 Jyoti Ritter Foot swelling Foot swelling Active Problem 12/18/2012 [facility] Problem Active 2012-12-18 02:08:29 Jyoti Ritter GERD - Gastro-esophageal reflux disease GERD - Gastro- esophageal reflux disease Active Problem 12/18/2012 [facility] Problem A ctive 2012-12-18 02:08:29 Jyoti ulysses HTN - Hypertension HTN - Hypertension Active Problem 12/18/2012 [facility] Problem Active 2012-12-18 02:08:29 Jyoti Stone Obese Obes e Active Problem 12/18/2012 [facility] Problem Active 2012-12-18 02:08:29 [facility] Renal stone Kusum l stone Active Problem 12/18/2012 [facility] Problem Active 2012-12-18 02:08:29 Co benito Ritter Retained ureteral stent Vandana ined ureteral stent Active Problem 12/18/2012 4left [facility] Problem Active 2012-12-18 02:0 8:29 [facility] Sleep apnea Slee p apnea Active Problem 12/18/2012 5uses CPAP [facility] Problem Active 2012-12-18 02:08:29 [facility] Gastroesophageal reflux disease (disorder) Gastroesophageal reflux disease (disorder) Active Problem 10/06/2018 FIONA Ritter, OPID Many,[facility], [facility] Problem Active 2018-10-06 14:18:02 [facility] Foot swelling (finding) Foot swelling (finding) Active Problem 10/06/2018 FIONA Ritter, FIONA Many,[facility], [facility] Problem Active 2018-10-06 14:18:02 [facility] Hypertensive disorder, systemic arterial (disorder) Hypertensive disorder, systemic arterial (disorder) Active Problem 10/06/2018 FIONA Ritter, OPID Many,[facility], [facility] Problem A ctive 2018-10-06 14:18:02 [facility] Her ar[facility] Injury of superior glenoid labrum of shoulder joint (d isorder) Injury of superior glenoid labrum of shoulder joint (disorder) Active Problem 10/06/2018 FIONA Ritter,[facility], [facility] Problem Active 2018-10-06 14:18:02 [facility] [place] Obese (finding) Obes e (finding) Active Problem 10/06/2018 FIONA Ritter, OPID Many,[facility], [facility] Problem A ctive 2018-10-06 14:18:02 [facility] Sleep apnea (finding) Slee p apnea (finding) Active Problem 10/06/2018 uses CPAP FIONA Ritter, IRWIND Many,[facility] Many Problem Active 2018-10-06 14:18:02 Misael Ritter Superior glenoid labrum lesion of right shoulder, init ial encounter Superior glenoid labrum lesion of right shoulder, initial encounter 03/25/2018 10/06/2018 [facility] Problem 2018-03-25 04:5 9:23 2018-10-06 14:18:02 2018-10-06 [...] 00:00:00 Jose Luis starkey Penicillins DA Active [facility] 2013-12-14 00:00:00 [facility] Pen[facility] Allergy to substance Active Mild RASH 2012-04-09 00:00:00 [facility] penicillins penicillins Active [facility] Family History Family Member Diagnosis Comments Start Date Stop Date Source Maternal grandmother Diabetes [facility] Natural mother Diabetes [facility] thodist Social History Social Habit Start Date Stop Date Quantity Comments Source History SDOH Alcohol Std Drinks [place] [facility] History SDOH Alcohol Binge [facility] Sex Assigned At Jonel ston [facility] Alcohol intake 2018-10-15 00:00:00 2018-10-15 00:00:00 [facility]etime [facility] (finding[facility] Alcohol Frequency 2018-10-09 00:00:00 2018-10-09 00:00:0 0 1 [facility] Social History 2015-06-17 04:59:00 2015-06-17 04:59:00 Jyoti Ritter Smoking Status Start Date Stop Date Source Never smoker Amaya Pasquale Medications Ordered Medication Name Filled Medication Name Start Date Stop Da te Current Medication? Ordering Clinician Indication Dosage Frequency Signature (SIG) Comments Components Source Ciprofloxacin Hcl (Cipro) 500 Mg TABLET Ciprofloxacin Hcl (C ipro) 500 Mg TABLET 2019-11-02 21:13:00 Yes 500 Every 12 Hours [facility] Acetaminophen With Codeine (Tylenol With Codeine #3 Ta blet) 1 Each TABLET Acetaminophen With Codeine (Tylenol With Codeine #3 Tablet) 1 Each TABLET 2019-04-01 12:56:00 Yes 300 Every 4 Hours for Pain [facility] Levofloxacin (Levaquin) 750 Mg TABLET Levofloxacin (Levaquin ) 750 Mg TABLET 2019-04-01 12:56:00 Yes 750 Daily [facility] Ondansetron Hcl (Zofran*) 4 Mg TABLET Ondansetron Hcl (Zofra n*) 4 Mg TABLET 2019-04-01 12:56:00 Yes 4 Every 6 Hours as n eeded for Nausea [facility] Tamsulosin Hcl (Flomax*) 0.4 Mg CAP Tamsulosin Hcl (Flomax*) 0.4 Mg CAP 2019-04-01 12:56:00 Yes .4 Daily [facility] dapagliflozin (FARXIGA) 5 mg [...] mg tablet 2018-10-14 16:19:34 Ye s 25mg [id number] Take 25 mg by mouth 3 (three) times a da y as needed for dizziness. Jose Luis Willams complex with C#20-folic acid 1 mg capsule 2018-10-14 16:19:34 Yes QD Take by mouth daily. Jose Luis alexandra glucosam/chond/collagen/hyalur (ZNNIOIIC-COWG-MDZHIP-HYALUR AC ORAL) 2018-10-14 16:19:34 Yes Take by mouth. Jose Luis Mejia Ketorolac 2018-03-19 18:00:00 No 15 mg, Route: IVP, Q6H, Dosing Weight 175, kg, Start date: 03/19/18 12:00:00 DIRECTOR AUTO, Duration: 6 doses or times, Stop date: 03/20/18 18:00:00 DIRECTOR AUTO Daniel Ritter Phenergan 2018-03-19 16:02:00 No 25 mg, Route: IVPB, Q4H, Dosing Weight 175, kg, PRN Nausea & Vomiting, Start date: 03/19/18 10:02:00 DIRECTOR AUTO, Duration: 30 day, Stop date: 04/18/18 10:01:00 DIRECTOR AUTO [facility] Zofran 2018-03-19 16:02:00 No 4 mg, Route: IV, Drug form: INJ, Q4H, Dosing Weight 175, kg, PRN Nausea, Start date: 03/19/18 10:02:00 DIRECTOR AUTO, Duration: 30 day, Stop date: 04/18/18 10:01:00 DIRECTOR AUTO [facility] Morphine 2018-03-19 16:02:00 No 2 mg, Route: IVP, Q3H, Dosing Weight 175, kg, PRN Pain Score 1-3, Start date: 03/19/18 10:02:00 DIRECTOR AUTO, Duration: 30 day, Stop date: 04/18/18 10:01:00 [facility]OR [facility]O [facility] Tramadol 2018-03-19 16:02:00 No 50 mg, Route: PO, Drug form: TAB, Q6H, Dosing Weight 175, kg, PRN Pain Score 1-3, Start date: 03/19/18 10:02:00 DIRECTOR AUTO, Duration: 30 day, Stop date: 04/18/18 10:01:00 [facility] Hydromorphone 2018-03-19 16:02:00 No 0.3 mg, Route: IVP, Q3H, Dosing Weight 175, kg, PRN Pain Score 4-6, Start date: 03/19/18 10:02:00 DIRECTOR AUTO, Duration: 30 day, Stop date: 04/18/18 10:01:00 DIRECTOR AUTO [facility] [place] Acetaminophen 325 MG / Hydrocodone Bitartrate 5 MG Oral Tabl et 2018-03-19 16:02:00 No Route: PO, Dosing Weight 175, kg, Q4H, PRN Pain Score 4-6, Start date: 03/19/18 10:02:00 DIRECTOR AUTO, Duration: 30 day, Stop date: 04/18/18 10:01:00 DIRECTOR AUTO [facility] [place] ceFAZolin ([facility]) 2018-03-19 14:57:00 No Route: IV, Drug form: INJ, ONCE, Stop date: 03/19/18 8:57:00 DIRECTOR AUTO Co benito Ritter neostigmine ([facility]) 2018-03-19 14:57:00 No Route: IV, Drug form: INJ, ONCE, Stop date: 03/19/18 8:57:00 DIRECTOR AUTO Co benito Ritter glycopyrrolate ([facility]) 2018-03-19 14:57:00 No Route: IV, Drug form: INJ, ONCE, Stop date: 03/19/18 8:57:00 DIRECTOR AUTO [facility] propofol ([facility]) 2018-03-19 14:57:00 No Route: IV, Drug form: INJ, ONCE, Stop date: 03/19/18 8:57:00 [facility]OR AUTO [facility] rocuronium ([facility]) 2018-03-19 14:57:00 No Route: IV, Drug form: INJ, ONCE, Stop date: 03/19/18 8:57:00 DIRECTOR AUTO [facility] famotidine ([facility]) 2018-03-19 14:57:00 No Route: IV, Drug form: INJ, ONCE, Stop date: 03/19/18 8:57:00 DIRECTOR AUTO Co benito Ritter acetaminophen ([facility]) 2018-03-19 14:57:00 No Route: IV, Drug form: INJ, ONCE, Stop date: 03/19/18 8:57:00 [facility]) 2018-03-19 14:57:00 No Route: IV, Drug form: INJ, ONCE, Stop date: 03/19/18 8:57:00 DIRECTOR AUTO Jyoti Ritter ondansetron (ANES) 2018-03-19 14:57:00 No Route: IV, Drug form: INJ, ONCE, Stop date: 03/19/18 8:57:00 DIRECTOR AUTO Co benito Ritter vancomycin (ANES) 2018-03-19 14:57:00 No Route: IV, Drug form: INJ, ONCE, Stop date: 03/19/18 8:57:00 DIRECTOR AUTO Co benito Ritter lidocaine (ANES) 2018-03-19 14:57:00 No Route: IV, Drug form: INJ, ONCE, Stop date: 03/19/18 8:57:00 DIRECTOR AUTO Co benito Ritter Naloxone 2018-03-19 14:33:00 No 0.04 mg, Route: IVP, Q2MIN, Dosing Weight 175, kg, PRN Narcotic Reversal, Start date: 03/19/18 8:33:00 DIRECTOR AUTO, Duration: 30 day, Stop date: 04/18/18 8:32:00 DIRECTOR AUTO Jyoti Ritter Lactated Ringers IV 1000 mL 2018-03-19 14:33:00 No 1,000 mL, Rate: 100 ml/hr, Infuse over: 10 hr, Route: IV, Dosing Weight 175 kg, Total Volume: 1,000, Start date: 03/19/18 8:33:00 DIRECTOR AUTO, Duration: 30 day, Stop date: 04/18/18 8:32:00 DIRECTOR AUTO, 3.03, m2 [facility] [place] Lactated Ringers Injection IV (ANES) 1000 mL 2018-03-19 13:53:00 No Route: IV, Total Volume: 1,000, Start date: 03/19/18 7:53:00 DIRECTOR AUTO, Stop date: 03/19/18 8:53:00 DIRECTOR AUTO [facility] Calcium Chloride 0.0014 MEQ/ML / Potassi um Chloride 0.004 MEQ/ML / Sodium Chloride 0.103 MEQ/ML / Sodium Lactate 0.028 MEQ/ML Injectable Solution 2018-03-19 12:56:00 No 1,000 mL, Rate: 25 ml/hr, Infuse over: 40 hr, Route: IV, Dosing Weight 175 kg, Total Volume: 1,000, Start date: 03/19/18 6:56:00 DIRECTOR AUTO, Duration: 30 day, Stop date: 04/18/18 6:55:00 DIRECTOR AUTO, 3.03, m2 Jyoti Ritter clindamycin 300 mg oral capsule 2018-03-19 11:49:00 [...] 1 tab, PO, Daily, 0 Refill(s) Jyoti Gagnonann ketorolac 2012-12-11 23:00:00 No Baldev Nicolas 15 mg, 1 mL, Route: IVP, Drug form: INJ, Q6H, Dosing Weight 193.182, kg, Start date: 12/11/12 18:00:00, Duration: 6 doses or times, Stop date: 12/13/12 0:00:00 Jyoti [place] Lactated Ringers Injection IV 1000 mL 2012-12-11 18:42:00 No Shruthi Prado 1,000 mL, Rate: 50 m l/hr, Infuse over: 20 hr, Route: IV, Dosing Weight 193.182 kg, Total Volume: 1,000, Start date: 12/11/12 13:42:00, Duration: 30 day, Stop date: 01/10/13 13:41:00 Elizabeth ferguson [place] acetaminophen-hydrocodone 325 mg-5 mg oral tablet 18:42:00 No Shruthi Leung Maxian 1 tab, Route: PO , Dosing Weight 193.182, kg, Q4H, PRN Pain Score 1-3, Start date: 12/11/12 13:42:00, Duration: 30 day, Stop date: 01/10/13 13:41:00 [facility] naloxone 2012-12-11 18:42:00 No Shruthi Leung Maxian 0.04 mg, Route: IVP, Q2MIN, Dosing Weight 193.182, kg, PRN Narcotic Reversal, Start date: 12/11/12 13:42:00, Duration: 8 doses or times, Stop date: Limited # of times [facility] ondansetron 2012-12-11 18:42:00 No Shruthi Leung Maxian 4 mg, Route: IVP, ONCE, Dosing Weight 193.182, kg, PRN Nausea & Vomiting, Start date: 12/11/12 13:42:00 [facility] hydromorphone 2012-12-11 18:42:00 No Shruthi Leung Maxian 0.5 mg, Route: IVP, Q5Min, Dosing Weight 193.182, kg, PRN Pain Score 7-10, Start date: 12/11/12 13:42:00, Duration: 5 doses or times, Stop date: Limited # of times [facility] fentanyl 2012-12-11 18:42:00 No Raphael Morales 25 microgram, Route: IVP, Q5Min, Dosing Weight 193.182, kg, PRN Pain Score 4-6, Start date: 12/11/12 13:42:00, Duration: 4 doses or times, Stop date: Limited # of times [facility] flumazenil 2012-12-11 18:42:00 No Shruthi Leung Maxian 0.2 mg, Route: IVP, PRN, Dosing Weight 193.182, kg, PRN Benzodiazepine Reversal, Initial dose, Start date: 12/11/12 13:42:00, Duration: 30 day, Stop date: 01/10/13 12:41:00 [facility] morphine Sulfate 2012-12-11 18:27:00 No Baldev Graciela Nguye n 2 mg, 1 mL, Route: IVP, Drug form: INJ, Q3H, Dosing Weight 193.182, kg, PRN Pain Score 1-3, Start date: 12/11/12 13:27:00, Duration: 30 day, Stop date: 01/10/13 13:26:00 [facility] [place] acetaminophen-hydrocodone 325 mg-10 mg oral tablet 2012-12 18:27:00 No Baldev Owens Nicolas 1 tab, Route: P O, Drug Form: TAB, Dosing Weight 193.182, kg, Q4H, PRN Pain Score 4-6, Start date: 12/11/12 13:27:00, Duration: 30 day, Stop date: 01/10/13 13:26:00 Jyoti kayley gentamicin + Sodium Chloride 0.9% IV 100 mL 2012-12-11 18: 00:00 No Baldev Owens Nicolas 120 mg, 3 mL, [place]: IVPB, Drug form: INJ, ONCALL, Dosing Weight 193.182, kg, Start date: 12/11/12 13:00:00, Duration: 30 day, Stop date: 01/10/13 11:59:00 [facility] Levaquin 2012-12-11 18:00:00 No Baldev Owens Nicolas 500 mg, 100 mL, Route: IV, Drug form: INJ, ONCALL, Dosing Weight 193.182, kg, Start date: 12/11/12 13:00:00 Jyoti Ritter Lactated Ringers Injection IV 1000 mL 2012-12-11 16:27:00 No Yosef Madiha Nick 1,000 mL, Rate: 25 ml/hr, Infuse over: 40 hr, Route: IV, Dosing Weight 193.182 kg, Total Volume: 1,000, Start date: 12/11/12 11:27:00, Duration: 30 day, Stop date: 01/10/13 11:26:00 Me benito Ritter labetalol 2012-12-04 18:04:00 No Delroy Crum 5 mg, Route: IVP, Q5Min, Dosing Weight 193.182, kg, PRN Elevated BP, Start date: 12/04/12 13:04:00, Duration: 5 doses or times, Stop date: Limited # of times [facility] esmolol IV Push 2012-12-04 18:04:00 No Delroy Luque Bake r 10 mg, Route: IVP, Q5Min, Dosing Weight 193.182, kg, PRN Elevated BP, Start date: 12/04/12 13:04:00, Duration: 5 doses or times, Stop date: Limited # of times [facility] hydrALAZINE 2012-12-04 18:04:00 No Delroy Luque Crum 5 mg, Route: IVP, Q5Min, Dosing Weight 193.182, kg, PRN Elevated BP, Start date: 12/04/12 13:04:00, Duration: 4 doses or times, Stop date: Limited # of times [facility] acetaminophen-hydrocodone 325 mg-5 mg oral tablet 18:04:00 No Delroy Crum 1 tab, Route: PO, Dosing Weight 193.182, kg, Q4H, PRN Pain Score 1-3, Start date: 12/04/12 13:04:00, Duration: 30 day, Stop date: 01/03/13 13:03:00 [facility] hydromorphone 2012-12-04 18:04:00 No Delroy Crum 0.5 mg, Route: IVP, Q5Min, Dosing Weight 193.182, kg, PRN Pain Score 7-10, Start date: 12/04/12 13:04:00, Duration: 5 doses or times, Stop date: Limited # of times [facility] ketorolac 2012-12-04 18:04:00 Yes Delroy Crum 30 mg, Route: IVP, ONCE, Dosing Weight 193.182, kg, Start date: 12/04/12 13:04:00, Duration: 1 doses or times, Stop date: 12/04/12 13:04:00 [facility] naloxone 2012-12-04 18:04:00 No Delroy Crum 0.04 mg, Route: IVP, Q2MIN, Dosing Weight 193.182, kg, PRN Narcotic Reversal, Start date: 12/04/12 13:04:00, Duration: 8 doses or times, Stop date: Limited # of times [facility] dexamethasone 2012-12-04 18:04:00 No Delroy Crum 4 mg, Route: IVP, ONCE, Dosing Weight 193.182, kg, PRN Nausea & Vomiting, Start date: 12/04/12 13:04:00 [facility] ondansetron 2012-12-04 18:04:00 No Delroy Crum 4 mg, Route: IVP, ONCE, Dosing Weight 193.182, kg, PRN Nausea & Vomiting, Start date: 12/04/12 13:04:00 [facility] flumazenil 2012-12-04 18:04:00 No Delroy Crum 0.2 mg, Route: IVP, PRN, Dosing Weight 193.182, kg, PRN Benzodiazepine Reversal, Initial dose, Start date: 12/04/12 13:04:00, Duration: 30 day, Stop date: 01/03/13 13:03:00 [facility] morphine Sulfate 2012-12-04 17:57:00 No Baldev Graciela Nguye n 2 mg, Route: IVP, Q3H, Dosing Weight 193.182, kg, PRN Pain Score 1-3, Start date: 12/04/12 12:57:00, Duration: 30 day, Stop date: 01/03/13 12:56:00 [facility] acetaminophen-hydrocodone 325 mg-10 mg oral tablet 2012-11 17:57:00 No Baldev Graciela Nicolas 1 tab, Route: P O, Dosing Weight 193.182, kg, Q4H, PRN Pain Score 4-6, Start date: 12/04/12 12:57:00, Duration: 30 day, Stop date: 01/03/13 12:56:00 [facility] gentamicin 2012-12-04 16:27:00 No Baldev Graciela Nicolas 120 mg, Route: IVPB, ONCE, Dosing Weight 193.182, kg, Start date: 12/04/12 11:27:00, Stop date: 12/04/12 11:27:00 [facility] Levaquin 2012-12-04 16:27:00 No Baldev Graciela Nicolas 500 mg, Route: IVPB, ONCE, Dosing Weight 193.182, kg, Start date: 12/04/12 11:27:00, Stop date: 12/04/12 11:27:00 [facility] Lactated Ringers Injection IV 1000 mL 2012-12-04 16:05:00 No Denton Mendez 1,000 mL, Rate: 25 ml/hr, Infuse over: 40 hr, Route: IV, Dosing Weight 193.182 kg, Total Volume: 1,000, Start date: 12/04/12 11:05:00, Duration: 30 day, Stop date: 01/03/13 11:04:00 Co benito Ritter tamsulosin 0.4 mg oral capsule 2012-12-04 15:20:21 Yes 0.4 mg, 1 cap, PO, Daily, 30 cap, Substitution Allowed, CAP [facility] [facility] Zofran 4 mg oral tablet 2012-12-04 15:20:08 Yes PO, PRN, Substitution Allowed [facility] Stone Cipro 2012-12-04 15:19:57 Yes PO, Q12H, Subs titution Allowed [facility] Aspirin Low Dose 81 mg oral tablet 2012-12-04 15:14:56 Yes PO, Daily, Substitution Allowed [facility] Her arora meloxicam 15 mg oral tablet 2012-12-04 15:14:50 Yes 15 mg, 1 tab, PO, Daily, 30 tab, Substitution Allowed, TAB [facility] hydrochlorothiazide-triamterene 25 mg-37.5 mg oral capsule 2012-12-04 15:14:41 Yes 1 cap, PO, Daily, 30 cap , Substitution Allowed, Maintenance, CAP [facility] amLODipine 5 mg oral tablet 2012-12-04 15:14:13 Yes 5 mg, 1 tab, PO, Daily, 30 tab, Substitution Allowed, TAB [facility] Bystolic 10 mg oral tablet 2012-12-04 15:13:57 Yes 10 mg, 1 tab, PO, Daily, 30 tab, Substitution Allowed, TAB [facility] atorvastatin 20 mg oral tablet 2012-12-04 15:13:45 Yes 20 mg, 1 tab, PO, Daily, 30 tab, Substitution Allowed, TAB [facility] Diovan 320 mg oral tablet 2012-12-04 15:13:33 Yes 320 mg, 1 tab, PO, Daily, 90 tab, Substitution Allowed, TAB [facility] lansoprazole 30 mg oral delayed release capsule 2012-12-04 15:13 :17 Yes 30 mg, 1 cap, PO, Daily, 30 cap, Substitution Allowed [facility] Acetaminophen With Codeine (Tylenol With Codeine #3 Ta blet) 1 Each TABLET Acetaminophen With Codeine (Tylenol With Codeine #3 Tablet) 1 Each TABLET Yes 300 as needed for Mild Pain (1-3) Or Fever>1 00.8 [facility] Amlodipine/Valsartan Amlodipine/Valsartan Yes Daily [facility] Atorvastatin Calcium (Lipitor) 20 Mg TABLET Atorvastat in Calcium (Lipitor) 20 Mg TABLET Yes 20 Daily [facility] Yes 10 Daily [facility] Gluc 2KCL/Chondr/Darrel Hy/Hy Ac (Glucosamine & Chondroi tin Cap) 1 Each CAPSULE Gluc 2KCL/Chondr/Darrel Hy/Hy Ac (Glucosamine & Chondroitin Cap) 1 Each CAPSULE Yes [facility] Meclizine Hcl Meclizine Hcl Yes 25 As Needed [facility] Meloxicam Meloxicam Yes 15 Daily [facility] Metformin Hcl (Metformin Hcl Er) 500 Mg TAB.ER.24 Metf ormin Hcl (Metformin Hcl Er) 500 Mg TAB.ER.24 Yes 1 Bedtime [facility] Nebivolol Hcl (Bystolic) 10 Mg TABLET Nebivolol Hcl (Bystolic) 10 M g TABLET Yes 20 Daily [facility] Pantoprazole Sodium (Protonix) 40 Mg TABLET. Pantopr azole Sodium (Protonix) 40 Mg TABLET. Yes 40 Daily [facility] Triamterene/Hydrochlorothiazid (Triamterene-Hctz 37.5- 25 Mg Cp) 1 Each CAPSULE Triamterene/Hydrochlorothiazid (Triamterene-Hctz 37.5-25 Mg Cp) 1 Each CAPSULE Yes 37.5 Daily [facility] Vitamin B Complex & Vit C No.4 (Super B Complex) 150 M g TABLET Vitamin B Complex & Vit C No.4 (Super B Complex) 150 Mg TABLET Yes [facility] Levofloxacin (Levaquin) 500 Mg TABLET Levofloxacin (Levaquin) 50 0 Mg TABLET 2019-03-17 00:00:00 No 500 Daily [facility] Amlodipine Besylate Amlodipine Besylate 2019-02-16 00:00:00 No 1 Daily [facility] Amlodipine-Valsartan Amlodipine-Valsartan 2019-02-16 00:00:00 No Daily [facility] Levofloxacin (Levaquin) 500 Mg TABLET Levofloxacin (Levaquin) 50 0 Mg TABLET 2018-09-17 00:00:00 No 500 Daily [facility] Meclizine Hcl Meclizine Hcl 2018-09-17 00:00:00 No 25 As Needed [facility] Cephalexin Cephalexin 2018-09-01 00:00:00 No 500 Thr ee Times A Day [facility] Insulin Detemir (Levemir) 100 Unit/1 Ml VIAL Insulin D etemir (Levemir) 100 Unit/1 Ml VIAL 2018-09-01 00:00:00 No 5 Bedtime [facility] Amlodipine/Valsartan (Exforge 5-320 Mg Tablet) 1 Each TABLET Amlodipine/Valsartan (Exforge 5-320 Mg Tablet) 1 Each TABLET 2018-08-13 00:00:00 No [facility] Aspirin Aspirin 2018-08-13 00:00:00 No 81 Daily [facility] Farxiga Farxiga 2018-08-13 00:00:00 No [facility] Meclizine Hcl Meclizine Hcl 2018-08-13 00:00:00 No 25 Three Times A Day as needed for Dizziness [facility] Metformin Hcl Metformin Hcl 2018-08-13 00:00:00 No 500 Bedtime [facility] Pantoprazole Sodium (Protonix) 40 Mg TABLET. Pantopr azole Sodium (Protonix) 40 Mg TABLET. 2018-08-13 00:00:00 No 40 Daily [facility] Triamterene/Hydrochlorothiazid (Triamterene-Hctz 37.5- 25 Mg Cp) 1 Each CAPSULE Triamterene/Hydrochlorothiazid (Triamterene-Hctz 37.5-25 Mg Cp) 1 Each CAPSULE 2018-08-13 00:00:00 No 1 Daily [facility] Amlodipine Besylate Amlodipine Besylate 2017-09-01 00:00:00 No 5 Daily [facility] Dapagliflozin Dapagliflozin 2017-09-01 00:00:00 No 10 Daily [facility] Levofloxacin (Levaquin) 500 Mg TABLET Levofloxacin (Levaquin) 50 0 Mg TABLET 2017-09-01 00:00:00 No 500 Daily [facility] Invokana Invokana 2017-07-08 00:00:00 No 300 Daily [facility] Lansoprazole Lansoprazole 2017-07-08 00:00:00 No 30 Daily [facility] Valsartan (Diovan) 80 Mg TAB Valsartan (Diovan) 80 Mg TAB 2017-07-08 00:00:00 No 320 Daily [facility] Furosemide (Lasix) 40 Mg TABLET Furosemide (Lasix) 40 Mg TABLET 2015-07-06 00:00:00 No 40 Daily as needed [facility] Vital Signs Vital Name Observation Time Observation Value Comments Source Weight 2019-11-02 19:37:00 375 [lb_av] [facility] BMI (Body Mass Index) 2019-11-02 19:37:00 52.3 kg/m2 [facility] Weight 2019-08-11 09:51:00 400 [lb_av] [facility] BMI (Body Mass Index) 2019-08-11 09:51:00 55.8 kg/m2 [facility] Body Temperature 2019-03-19 06:26:00 98.5 [degF] [facility] Systolic (mm Hg) 2018-03-19 16:30:00 Misael rial [place] Diastolic (mm Hg) 2018-03-19 16:30:00 Mem [facility] [place] Systolic (mm Hg) 2018-03-19 15:45:00 Misael rial [place] Diastolic (mm Hg) 2018-03-19 15:45:00 Mem [facility] [place] Systolic (mm Hg) 2018-03-19 15:30:00 Misael rial [place] Diastolic (mm Hg) 2018-03-19 15:30:00 [facility] [place] Respitory Rate 2018-03-19 15:30:00 [facility]ori [facility] Respitory Rate 2018-03-19 15:15:00 [facility] Respitory Rate 2018-03-19 15:00:00 [facility] [place] Heart Rate 2018-03-19 14:51:00 [facility] [place] Heart Rate 2018-03-19 12:57:00 [facility] [place] Temperature Oral (F) 2018-03-13 22:00:00 97.9 F [facility] [place] Heart Rate 2018-03-13 22:00:00 [facility] Height 2018-03-13 21:50:00 182.88 cm [facility] [place] Weight 2018-03-13 21:50:00 [facility] [place] BMI Calculated 2018-03-13 21:50:00 [facility] [place] Systolic (mm Hg) 2012-12-11 19:38:00 Misael rial [place] Diastolic (mm Hg) 2012-12-11 19:38:00 [facility] [place] Diastolic (mm Hg) 2012-12-11 19:15:00 Mem [facility] [place] Systolic (mm Hg) 2012-12-11 19:15:00 Misael rial [place] Respitory Rate 2012-12-11 19:15:00 [facility] [place] Systolic (mm Hg) 2012-12-11 19:00:00 Misael rial [place] Diastolic (mm Hg) 2012-12-11 19:00:00 Mem [facility] [place] Respitory Rate 2012-12-11 19:00:00 [facility] [place] Respitory Rate 2012-12-11 18:45:00 [facility] Heart Rate 2012-12-11 15:30:00 [facility] Temperature Oral (F) 2012-12-09 18:48:00 98.3 F [facility] Heart Rate 2012-12-09 18:48:00 [facility] [place] Height 2012-12-09 18:31:00 177.8 cm [facility] [place] Weight 2012-12-09 18:31:00 [facility] Diastolic (mm Hg) 2012-12-04 19:00:00 Mem [facility] [place] Systolic (mm Hg) 2012-12-04 19:00:00 Misael rial [place] Respitory Rate 2012-12-04 18:45:00 [facility] [place] Systolic (mm Hg) 2012-12-04 18:45:00 Misael rial [place] Diastolic (mm Hg) 2012-12-04 18:45:00 Mem [facility] [place] Systolic (mm Hg) 2012-12-04 18:30:00 Misael rial [place] Diastolic (mm Hg) 2012-12-04 18:30:00 [facility] [place] Respitory Rate 2012-12-04 18:30:00 [facility] [place] Respitory Rate 2012-12-04 18:15:00 Memori al [place] Heart Rate 2012-12-04 14:51:00 [facility] [place] Temperature Oral (F) 2012-12-04 14:51:00 98.3 F [facility] [place] Weight 2012-12-04 14:48:00 [facility] [place] Height 2012-12-04 14:48:00 177.8 cm [facility] Procedures Procedure Date / Time Performed Performing Clinician [facility] joon CT of abdomen and pelvis without contrast 2019-08-11 00:00:00 [facility] X-ray of chest, single view 2019-08-11 00:00:00 [facility] CT of abdomen and pelvis without contrast 2019-04-01 00:00:00 [facility] CYSTOURETERO W/LITHOTRIPSY 2019-03-19 00:00:00 C HI [facility] DILATION OF RIGHT URETER WITH INTRALUMINAL DEVICE, ENDO 00:00:00 [facility] DILATION OF LEFT URETER, ENDO 2019-02-17 00:00:00 [facility] FLUOROSCOPY OF KIDNEY, URETER & BLADDER USING L OSM CO NTRAST 2019-02-17 00:00:00 [facility] CT of abdomen and pelvis without contrast 2019-02-16 00:00:00 [facility] Injection procedure for shoulder arthrog bakari or enhanced CT/MRI shoulder arthrography 2018-02-12 16:39:22 [facility] Cystourethroscopy, with insertion of ind welling ureteral stent (eg, [place] or double-J type) 2012-12-11 05:00:00 [facility] Cystourethroscopy, with ureteroscopy and /or pyeloscopy; with removal or manipulation of calculus (ureteral catheterization is included) 2012-12-11 05:00:00 [facility] Transurethral Removal of Obstruction from Ureter and R enal Pelvis 2012-12-11 05:00:00 [facility] Ureteral Catheterization 2012-12-11 05:00:00 Mem orial [place] Shoulder joint operations<sup>1</sup> 2010-03-10 00:00:00 [facility] 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 2007-03-10 00:00:00 [facility] [place] Stent placement [facility] Ablation [facility] Cardiac catheterization [facility] [place] Cholecystectomy [facility] [place] 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 <sup>1</sup> [facility] [place] Lithotripsy [facility] [place] Shoulder joint operations Memori [facility] [place] 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 [facility] Ablation [facility] [place] Arthroplasty of knee [facility] Cardiac catheterization [facility] [place] Cholecystectomy [facility] [place] 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<sup>2</sup> [facility] Lithotripsy [facility] [place] Stent placement [facility] Plan of Care Planned Activity Planned Date Details Comments Source Future Scheduled Test 2019-12-09 00:00:00 INFLUENZA VACCINE [code = INFLUENZA VACCINE] [facility] Scheduled Test 2013 00:00:00 COLONOSCOPY SCREEN ING [code = COLONOSCOPY SCREENING] [facility] Scheduled Test 2013 00:00:00 SHINGLES VACCINES (#1) [code = SHINGLES VACCINES (#1)] [facility] Scheduled Test 1973 00:00:00 DIABETIC FOOT EXAM [code = DIABETIC FOOT EXAM] [facility] Scheduled Test 1973 00:00:00 URINE MICROALBUMIN [code = URINE MICROALBUMIN] [facility] Scheduled Test 1963 00:00:00 DIABETIC RETINAL E YE EXAM [code = DIABETIC RETINAL EYE EXAM] [facility] Instructions Fever - Adult [facility] Instructions Urinary Tract Infection - Men [facility] Encounters Start Date/Time End Date/Time Encounter Type Admission Type Attendi [facility] Care Department Encounter ID Source 2019-11-02 19:20:00 2019-11-02 21:32:00 Departed Emergency Room CHRYSTAL BOCANEGRA [facility] [id number] [facility] [place] 2019-08-11 09:32:00 2019-08-11 14:20:00 Departed Emergency Room 1 NATHAN SALDAÑA [facility] [id number] [facility] [place] 2019-08-05 14:43:00 2019-08-05 14:43:00 Registered Clinic 3 CARLOS COX [facility] [id number] [facility] [place] 2019-04-01 09:21:00 2019-04-01 13:29:00 Departed Emergency Room 1 CHARI EPPS [facility] [id number] [facility] 2019-03-20 18:13:00 2019-03-20 21:51:00 Departed Emergency Room 1 NAVARRO CHONG [facility] [id number] [facility] 2019-03-19 04:16:00 2019-03-19 04:16:00 Registered Surgical Day Care [facility] [id number] [facility] 2019-02-16 13:33:00 2019-02-18 11:05:00 Discharged Inpatient 1 DOMENIC CHAPMAN [facility] [id number] [facility] [place] 2019-02-15 09:11:00 2019-02-15 09:11:00 Registered Clinic 3 CARLOS COX [facility] [id number] [facility] [place] 2018-11-27 10:33:00 2018-11-27 10:33:00 Registered Clinic 3 [facility] [id number] [facility] [place] 2018-09-18 08:22:00 2018-09-18 08:22:00 Registered Surgical Day Care [facility] [id number] [facility] 2018-09-01 22:28:00 2018-09-03 13:50:00 Discharged Inpatient 1 LIVAN CASTANEDA [facility] [id number] [facility] 2018-09-01 07:43:00 2018-09-01 07:43:00 Registered Surgical Day Car e [facility] [id number] [facility] 2018-08-18 05:00:00 2018-08-18 05:00:00 Registered Surgical Day Car e 3 [facility] [id number] [facility] 2018-07-24 00:25:00 2018-07-24 00:50:00 Departed Emergency Room [facility] [id number] [facility] 2018-05-07 08:00:00 2018-06-05 23:59:00 Outpatient Oliverio Wyatt [id number] 2018-04-07 15:40:00 2018-05-06 23:59:00 Outpatient Oliverio Wyatt [id number] 2018-03-19 06:00:00 2018-03-19 10:46:00 Outpatient Oswald WyattSE MHSE [id number] 2018-02-12 09:10:00 2018-02-12 23:59:00 Outpatient Adrián Wyatt MHOIH MHOIH [id number] 2018-01-06 05:04:00 2018-01-06 05:04:00 Registered Surgical Day Car e 3 [facility] [id number] [facility] 2017-07-09 12:16:00 2017-07-10 12:02:00 Discharged Inpatient ER GISELA CARABALLO [facility] [id number] [facility] 2015-06-16 12:20:00 2015-06-16 23:59:00 Outpatient Bjorn Guerrero [facility] [id number] Results Test Description Test Time Test Comments Results Result Comments Source CXR 2 VIEW - HOPD 2019-11-02 20:59:00 [facility] [address] [address] Patient Name: ZAYNAB SALMERON MR #: [id number] : 1965 Age/Sex: 54/M Req #: [id number] Adm Physician: Ordered by: CHRYSTAL BOCANEGRA Report #: [id number] Location: [facility] Room/Bed: Procedure: [id number] HOPD/CXR 2 VIEW - HOPD Exam Date: [...] 9:00 PM Dictated By: CLAYTON MORENO MD 2100 Transcribed By: MICHEAL on 11/02/19 2100 COPY TO: CHRYSTAL BOCANEGRA CT ABDOMEN/PELVIS WO 2019-08-11 11:36:[address] [address] Patient Name: ZAYNAB SALMERON MR #: [id number] : 1965 Age/Sex: 54/M Req #: [id number] Adm Physician: Ordered by: NATHAN SALDAÑA MD Report #: [id number] Location: ER Room/Bed: Procedure: [id number] CT/CT ABDOMEN/PELVIS WO Exam Date: 08/11/19 Exam [...] MD CHEST SINGLE (NOT PORTABLE) 2019-08-11 11:32:00 [address] [address] Patient Name: ZAYNAB SALMERON MR #: [id number] : 1965 Age/Sex: 54/M Req #: [id number] Adm Physician: Ordered by: NATHAN SALDAÑA MD Report #: [id number] Location: ER Room/Bed: Procedure: [id number] DX/CHEST SINGLE (NOT PORTABLE) Exam Date: 08/11/19 [...] 11:32 AM Dictated By: MELISSA QUAN MD 31 Transcribed By: MICHEAL on 08/11/191131 COPY TO: NATHAN SALDAÑA MD Blood leukocytes automated count (number/volume) 2019-08-11 09:58:00 Test Item White Blood Count (test code = 6690-2) 8.96 4.8-10.8 [facility] count (number/volume)2019-08-11 09:58:00* Test Item Value Reference Range Interpretation Comments Red Blood Count (test code = 789-8) 5.25 4.3-5.7 [facility] measurement (moles/volume)2019-08-11 09:58:00* Test Item Value Reference Range Interpretation Comments Hemoglobin (test code = 54343-2) 13.8 14.0-18.0 [facility] hematocrit (volume fraction)2019-08-11 09:58:00* Test Item Value Reference Range Interpretation Comments Hematocrit (test code = 4544-3) 44.5 38.2-49.6 [facility]Autom[facility] erythrocyte mean corpuscular rywxpv0044-97-71 09:58:00* Test Item Value Reference Range Interpretation Comments Mean Corpuscular Volume (test code = 787-2) 84.8 81-99 [facility] erythrocyte mean corpuscular hemoglobin (mass per erythrocyte)2019-08-11 09:58:00* Test Item Value Reference Range Interpretation Comments Mean Corpuscular Hemoglobin (test code = 785-6) 26.3 28-32 [facility] erythrocyte mean corpuscular hemoglobin concentration measurement (mass/volume)2019-08-11 09:58:00* Test Item Value Reference Range Interpretation Comments Mean Corpuscular Hemoglobin Concent (test code = 786-4) 31.0 31-35 [facility] HospitalRDW [id number]-[id number] 09:58:00* Test Item Value Reference Range Interpretation Comments Red Cell Distribution Width (test code = 78163-3) 15.2 11.7 -14.4 [facility] platelet count (count/volume)2019-08-11 09:58:00* Test Item Value Reference Range Interpretation Comments Platelet Count (test code = 777-3) 283 140-360 [facility] blood segmented neutrophil count as percentage of total qdyrgtleny5040-79-78 09:58:00* Test Item Value Reference Range Interpretation Comments Neutrophils (%) (Auto) (test code = 33827-8) 65.7 38.7-80.0 [facility] blood lymphocyte count as percentage ot total seipnauafs9882-13-98 09:58:00* Test Item Value Reference Range Interpretation Comments Lymphocytes (%) (Auto) (test code = 736-9) 22.0 18.0-39.1 [facility] blood monocyte count as percentage of total zuibuobtgx3110-76-90 09:58:00* Test Item Value Reference Range Interpretation Comments Monocytes (%) (Auto) (test code = 5905-5) 8.1 4.4-11.3 [facility] blood eosinophil count as percentage of total stacjpcosq7129-07-25 09:58:00* Test Item Value Reference Range Interpretation Comments Eosinophils (%) (Auto) (test code = 713-8) 3.6 0.0-6.0 [facility] blood basophil count as percentage of total recqeyamsq7080-13-62 09:58:00* Test Item Value Reference Range Interpretation Comments Basophils (%) (Auto) (test code = 706-2) 0.3 0.0-1.0 [facility] HospitalFluoroscopic procedure less than one hour [id number] 09:58:00* Test Item Value Reference Range Interpretation Comments IM GRANULOCYTES % (test code = IM GRANULOCYTES %) 0.3 0.0- 1.0 [facility] neutrophil count 2019-08-11 09:58:00* Test Item Value Reference Range Interpretation Comments Neutrophils # (Auto) (test code = 751-8) 5.9 2.1-6.9 [facility] lymphocytes count (number/volume) 2019-08-11 09:58:00* Test Item Value Reference Range Interpretation Comments Lymphocytes # (Auto) (test code = 38310-3) 2.0 1.0-3.2 [facility]Blood monocytes automated count (number/volume)2019-08-11 09:58:00* Test Item Value Reference Range Interpretation Comments Monocytes # (Auto) (test code = 742-7) 0.7 0.2-0.8 [facility] blood eosinophil count 2019-08-11 09:58:00* Test Item Value Reference Range Interpretation Comments Eosinophils # (Auto) (test code = 711-2) 0.3 0.0-0.4 [facility]Autom[facility] blood basophil count (count/volume)2019-08-11 09:58:00* Test Item Value Reference Range Interpretation Comments Basophils # (Auto) (test code = 704-7) 0.0 0.0-0.1 [facility] HospitalFluoroscopic procedure less than one hour ijhhjfzw9310-41-58 09:58:00* Test Item Value Reference Range Interpretation Comments Absolute Immature Granulocyte (auto (chel t code = Absolute Immature Granulocyte (auto) 0.03 0-0.1 [facility] HospitalProthrombin time (PT) in platelet poor plasma by coagulation [id number] 09:58:00* Test Item Value Reference Range Interpretation Comments Prothrombin Time (test code = 5902-2) 12.2 11.9-14.5 [facility] HospitalINR in Platelet poor plasma by Coagulation [id number] 09:58:00* Test Item Value Reference Range Interpretation Comments Prothromb Time International Ratio (test code = 6301-6) 0.86 Oral Anticoagulant Therapy INR Values:1. Low Intensity Therapy 1.5 - 2.02 . Moderate Intensity Therapy 2.0 - 3.03. High Intensity Therapy(1) 2.5 - 3. 54. High Intensity Therapy(2) 3.0 - 4.05. Panic Value INR > 5.0 [facility] HospitalActivated partial thromboplastin time (aPTT) in platelet poor plasma by coagulation [id number] 09:58:00* Test Item Value Reference Range Interpretation Comments Activated Partial Thromboplast Time (test code = 57130-0) 31.2 23.8-35.5 [facility] HospitalUrine color xgitqcrjkqliu4807-11-28 09:58:00* Test Item Value Reference Range Interpretation Comments Urine Color (test code = 5778-6) YELLOW YELLOW [facility] HospitalUrine [id number] 09:58:00* Test Item Value Reference Range Interpretation Comments Urine Clarity (test code = 26401-7) CLOUDY CLEAR [facility] gravity of Urine by Test strip 2019-08-11 09:58:00* Test Item Value Reference Range Interpretation Comments Urine Specific [place] (test code = 5811-5) 1.020 1.010-1.02 5 [facility] measurement by automated test [id number] 09:58:00* Test Item Value Reference Range Interpretation Comments Urine pH (test code = 13624-6) 5.5 5-7 [facility] HospitalUrine leukocyte esterase detection by rjamvhus7637-51-48 09:58:00* Test Item Value Reference Range Interpretation Comments Urine Leukocyte Esterase (test code = 5799-2) MODERATE NEGATIVE [facility] HospitalUrine nitrite qanxrejug8150-94-56 09:58:00* Test Item Value Reference Range Interpretation Comments Urine Nitrite (test code = 87476-6) NEGATIVE NEGATIVE [facility] HospitalUrine protein measurement by test strip (mass/volume)2019-08-11 09:58:00* Test Item Value Reference Range Interpretation Comments Urine Protein (test code = 5804-0) 2+ NEGATIVE [facility] HospitalUrine glucose muqvxqncd7591-97-99 09:58:00* Test Item Value Reference Range Interpretation Comments Urine Glucose (UA) (test code = 2349-9) 2+ NEGATIVE [facility] HospitalUrine ketones detection by automated test [id number] 09:58:00* Test Item Value Reference Range Interpretation Comments Urine Ketones (test code = 40803-7) NEGATIVE NEGATIVE [facility] HospitalUrine urobilinogen measurement by test strip (mass/volume)2019-08-11 09:58:00* Test Item Value Reference Range Interpretation Comments Urine Urobilinogen (test code = 51571-6) 0.2 0.2-1 [facility] HospitalUrine total bilirubin measurement (mass/volume)2019-08-11 09:58:00* Test Item Value Reference Range Interpretation Comments Urine Bilirubin (test code = 1978-6) NEGATIVE NEGATIVE [facility] HospitalUrine erythrocytes bnqulpfkg1582-52-88 09:58:00* Test Item Value Reference Range Interpretation Comments Urine Blood (test code = 82120-2) MODERATE NEGATIVE [facility] HospitalAutomated urine sediment leukocyte count by microscopy (number/high power field)2019-08-11 09:58:00* Test Item Value Reference Range Interpretation Comments Urine WBC (test code = 5821-4) 21-50 0-5 [facility] HospitalErythrocytes detection in urine sediment by light qbpmuvixhr9031-71-39 09:58:00* Test Item Value Reference Range Interpretation Comments Urine RBC (test code = 47491-1) >50 0-5 [facility] HospitalBacteria detection in urine sediment by light gnumuhcwfq6163-52-52 09:58:00* Test Item Value Reference Range Interpretation Comments Urine Bacteria (test code = 08197-2) FEW NONE [facility] HospitalEpithelial cells detection in urine sediment by light sjhqtzszoe1031-51-92 09:58:00* Test Item Value Reference Range Interpretation Comments Urine Epithelial Cells (test code = 88264-2) FEW NONE [facility] sodium measurement (moles/volume)2019-08-11 09:58:00* Test Item Value Reference Range Interpretation Comments Sodium Level (test code = 2951-2) 142 136-145 [facility]erum or plasma potassium measurement (moles/volume)2019-08-11 09:58:00* Test Item Value Reference Range Interpretation Comments Potassium Level (test code = 2823-3) 3.6 3.5-5.1 [facility] or plasma chloride measurement (moles/volume)2019-08-11 09:58:00* Test Item Value Reference Range Interpretation Comments Chloride Level (test code = 2075-0) 105 98-107 [facility]erum or plasma carbon dioxide, total measurement (moles/volume)2019-08-11 09:58:00* Test Item Value Reference Range Interpretation Comments Carbon Dioxide Level (test code = 2028-9) 24 22-29 [facility]erum or plasma anion [id number] 09:58:00* Test Item Value Reference Range Interpretation Comments Anion Gap (test code = 60241-9) 16.6 8-16 [facility]erum or plasma urea nitrogen measurement (mass/volume)2019-08-11 09:58:00* Test Item Value Reference Range Interpretation Comments Blood Urea Nitrogen (test code = 3094-0) 19 7-26 [facility]erum or plasma creatinine measurement (mass/volume)2019-08-11 09:58:00* Test Item Value Reference Range Interpretation Comments Creatinine (test code = 2160-0) 1.66 0.72-1.25 [facility]erum or plasma urea nitrogen/creatinine mass xptpd1188-04-73 09:58:00* Test Item Value Reference Range Interpretation Comments BUN/Creatinine Ratio (test code = 3097-3) 11 6-25 [facility] HospitalEstimated glomerular filtration rate (GFR) joeckjwrotkme7057-90-01 09:58:00* Test Item Value Reference Range Interpretation Comments Estimat Glomerular Filtration Rate (test code = 312208470) 43 >60 Ranges were taken from the National Kidney Disease Education Program and the [facility] literature.Reference ranges:60 or greater: Mfucdj38-80 ( for 3 consecutive months): Chronic kidney disease 15 or less: Kidney failureFormerly [facility] HospitalGlucose teazfqldsdv8496-12-94 09:58:00* Test Item Value Reference Range Interpretation Comments Glucose Level (test code = ARY2034) 140 74-118 [facility]er[facility] or plasma calcium measurement (mass/volume)2019-08-11 09:58:00* Test Item Value Reference Range Interpretation Comments Calcium Level (test code = 77954-8) 10.0 8.4-10.2 [facility]erum or plasma magnesium measurement (mass/volume)2019-08-11 09:58:00* Test Item Value Reference Range Interpretation Comments Magnesium Level (test code = 85411-7) 1.8 1.3-2.1 [facility] or plasma total bilirubin measurement (mass/volume)2019-08-11 09:58:00* Test Item Value Reference Range Interpretation Comments Total Bilirubin (test code = 1975-2) 0.9 0.2-1.2 [facility] HospitalFluoroscopic procedure less than one hour wgbwgpec5771-93-83 09:58:00* Test Item Value Reference Range Interpretation Comments Aspartate Amino Transf (AST/SGOT) (test code = Aspartate Amino Transf (AST/SGOT)) 18 5-34 [facility] or plasma alanine aminotransferase measurement (enzymatic activity/volume)2019-08-11 09:58:00* Test Item Value Reference Range Interpretation Comments Alanine Aminotransferase (ALT/SGPT) (test code = 1742-6) 19 0-55 [facility]um or plasma protein measurement (mass/volume)2019-08-11 09:58:00* Test Item Value Reference Range Interpretation Comments Total Protein (test code = 2885-2) 8.2 6.5-8.1 [facility] or plasma albumin measurement (mass/volume)2019-08-11 09:58:00* Test Item Value Reference Range Interpretation Comments Albumin (test code = 1751-7) 4.3 3.5-5.0 [facility] HospitalPlasma globulin measurement (mass/volume) 2019-08-11 09:58:00* Test Item Value Reference Range Interpretation Comments Globulin (test code = 30301-7) 3.9 2.3-3.5 [facility] or plasma albumin/globulin mass chkas4975-80-89 09:58:00* Test Item Value Reference Range Interpretation Comments Albumin/Globulin Ratio (test code = 1759-0) 1.1 0.8-2.0 [facility] or plasma alkaline phosphatase measurement (enzymatic activity/volume)2019-08-11 09:58:00* Test Item Value Reference Range Interpretation Comments Alkaline Phosphatase (test code = 6768-6) 94 40-150 [facility] HospitalBNP Jac-mDrn1915-63-03 09:58:00* Test Item Value Reference Range Interpretation Comments B-Type Natriuretic Peptide (test code = 80447-6) 13.1 0-100 [facility] or plasma creatine kinase measurement (enzymatic activity/volume)2019-08-11 09:58:00* Test Item Value Reference Range Interpretation Comments Creatine Kinase (test code = 2157-6) 99 30-200 [facility]ennialerum or plasma creatine kinase MB measurement (mass/volume)2019-08-11 09:58:00* Test Item Value Reference Range Interpretation Comments Creatine Kinase MB (test code = 99861-1) 1.10 0-5.0 [facility] HospitalTroponin I measurement by highly sensitive enzyme mzvbsesbbfi0719-61-02 09:58:00* Test Item Value Reference Range Interpretation Comments Troponin I (test code = 55636-9) 0.008 0-0.300 [facility] or plasma lipase measurement (enzymatic activity/volume)2019-08-11 09:58:00* Test Item Value Reference Range Interpretation Comments Lipase (test code = 3040-3) 54 8-78 [facility] HospitalBlood leukocytes automated count (number/volume)2019-08-11 09:58:00* Test Item Value Reference Range Interpretation Comments White Blood Count (test code = 6690-2) 8.96 4.8-10.8 [facility] HospitalBlood erythrocytes automated count (number/volume)2019-08-11 09:58:00* Test Item Value Reference Range Interpretation Comments Red Blood Count (test code = 789-8) 5.25 4.3-5.7 [facility] HospitalBlood hemoglobin measurement (moles/volume)2019-08-11 09:58:00* Test Item Value Reference Range Interpretation Comments Hemoglobin (test code = 84731-3) 13.8 14.0-18.0 [facility] HospitalAutomated blood hematocrit (volume fraction)2019-08-11 09:58:00* Test Item Value Reference Range Interpretation Comments Hematocrit (test code = 4544-3) 44.5 38.2-49.6 [facility] HospitalAutomated erythrocyte mean corpuscular pivwqe2444-38-44 09:58:00* Test Item Value Reference Range Interpretation Comments Mean Corpuscular Volume (test code = 787-2) 84.8 81-99 [facility] HospitalAutomated erythrocyte mean corpuscular hemoglobin (mass per erythrocyte)2019-08-11 09:58:00* Test Item Value Reference Range Interpretation Comments Mean Corpuscular Hemoglobin (test code = 785-6) 26.3 28-32 [facility] HospitalAutnov[facility] erythrocyte mean corpuscular hemoglobin concentration measurement (mass/volume)2019-08-11 09:58:00* Test Item Value Reference Range Interpretation Comments Mean Corpuscular Hemoglobin Concent (test code = 786-4) 31.0 31-35 [facility] HospitalRDW WdrSb-Pjq1295-43-03 09:58:00* Test Item Value Reference Range Interpretation Comments Red Cell Distribution Width (test code = 70621-3) 15.2 11.7 -14.4 [facility] HospitalAutnov[facility] blood platelet count (count/volume)2019-08-11 09:58:00* Test Item Value Reference Range Interpretation Comments Platelet Count (test code = 777-3) 283 140-360 [facility] HospitalAutomated blood segmented neutrophil count as percentage of total dpybokectg1323-23-27 09:58:00* Test Item Value Reference Range Interpretation Comments Neutrophils (%) (Auto) (test code = 83547-7) 65.7 38.7-80.0 [facility] HospitalAutomated blood lymphocyte count as percentage ot total cynjjfovwv1995-49-67 09:58:00* Test Item Value Reference Range Interpretation Comments Lymphocytes (%) (Auto) (test code = 736-9) 22.0 18.0-39.1 [facility] HospitalAutomated blood monocyte count as percentage of total udjaaxords3518-09-69 09:58:00* Test Item Value Reference Range Interpretation Comments Monocytes (%) (Auto) (test code = 5905-5) 8.1 4.4-11.3 [facility] HospitalAutomated blood eosinophil count as percentage of total bofltaieva2086-47-04 09:58:00* Test Item Value Reference Range Interpretation Comments Eosinophils (%) (Auto) (test code = 713-8) 3.6 0.0-6.0 [facility] HospitalAutomated blood basophil count as percentage of total bsbpurkuop0830-51-10 09:58:00* Test Item Value Reference Range Interpretation Comments Basophils (%) (Auto) (test code = 706-2) 0.3 0.0-1.0 [facility] HospitalFluoroscopic procedure less than one hour kpmlcpir8548-21-73 09:58:00* Test Item Value Reference Range Interpretation Comments IM GRANULOCYTES % (test code = IM GRANULOCYTES %) 0.3 0.0- 1.0 [facility] HospitalAutomated blood neutrophil count 2019-08-11 09:58:00* Test Item Value Reference Range Interpretation Comments Neutrophils # (Auto) (test code = 751-8) 5.9 2.1-6.9 [facility] HospitalBlood lymphocytes count (number/volume) 2019-08-11 09:58:00* Test Item Value Reference Range Interpretation Comments Lymphocytes # (Auto) (test code = 47512-7) 2.0 1.0-3.2 [facility] HospitalBlood monocytes automated count (number/volume)2019-08-11 09:58:00* Test Item Value Reference Range Interpretation Comments Monocytes # (Auto) (test code = 742-7) 0.7 0.2-0.8 [facility] HospitalAutomated blood eosinophil count 2019-08-11 09:58:00* Test Item Value Reference Range Interpretation Comments Eosinophils # (Auto) (test code = 711-2) 0.3 0.0-0.4 [facility] HospitalAutomated blood basophil count (count/volume)2019-08-11 09:58:00* Test Item Value Reference Range Interpretation Comments Basophils # (Auto) (test code = 704-7) 0.0 0.0-0.1 [facility] HospitalFluoroscopic procedure less than one hour vdljkevj0606-14-17 09:58:00* Test Item Value Reference Range Interpretation Comments Absolute Immature Granulocyte (auto (chel t code = Absolute Immature Granulocyte (auto) 0.03 0-0.1 [facility] HospitalProthrombin time (PT) in platelet poor plasma by coagulation tsaff4981-65-55 09:58:00* Test Item Value Reference Range Interpretation Comments Prothrombin Time (test code = 5902-2) 12.2 11.9-14.5 [facility] HospitalINR in Platelet poor plasma by Coagulation yffxp5763-26-97 09:58:00* Test Item Value Reference Range Interpretation Comments Prothromb Time International Ratio (test code = 6301-6) 0.86 Oral Anticoagulant Therapy INR Values:1. Low Intensity Therapy 1.5 - 2.02 . Moderate Intensity Therapy 2.0 - 3.03. High Intensity Therapy(1) 2.5 - 3. 54. High Intensity Therapy(2) 3.0 - 4.05. Panic Value INR > 5.0 [facility] HospitalActivated partial thromboplastin time (aPTT) in platelet poor plasma by coagulation xmryg3518-20-12 09:58:00* Test Item Value Reference Range Interpretation Comments Activated Partial Thromboplast Time (test code = 14355-3) 31.2 23.8-35.5 [facility] HospitalUrine color tsfubmjytjdqc7653-73-24 09:58:00* Test Item Value Reference Range Interpretation Comments Urine Color (test code = 5778-6) YELLOW YELLOW [facility] HospitalUrine fgdxijc5575-35-65 09:58:00* Test Item Value Reference Range Interpretation Comments Urine Clarity (test code = 25345-6) CLOUDY CLEAR [facility]pecific gravity of Urine by Test strip 2019-08-11 09:58:00* Test Item Value Reference Range Interpretation Comments Urine Specific [place] (test code = 5811-5) 1.020 1.010-1.02 5 [facility] HospitalUrine pH measurement by automated test udbbp0953-10-57 09:58:00* Test Item Value Reference Range Interpretation Comments Urine pH (test code = 73930-3) 5.5 5-7 [facility] HospitalUrine leukocyte esterase detection by hygjqasc1378-11-46 09:58:00* Test Item Value Reference Range Interpretation Comments Urine Leukocyte Esterase (test code = 5799-2) MODERATE NEGATIVE [facility] HospitalUrine nitrite ykaqcyqjj5182-83-35 09:58:00* Test Item Value Reference Range Interpretation Comments Urine Nitrite (test code = 09822-7) NEGATIVE NEGATIVE [facility] HospitalUrine protein measurement by test strip (mass/volume)2019-08-11 09:58:00* Test Item Value Reference Range Interpretation Comments Urine Protein (test code = 5804-0) 2+ NEGATIVE [facility] HospitalUrine glucose dodmuttca2018-20-87 09:58:00* Test Item Value Reference Range Interpretation Comments Urine Glucose (UA) (test code = 2349-9) 2+ NEGATIVE [facility] HospitalUrine ketones detection by automated test sovdd3766-58-79 09:58:00* Test Item Value Reference Range Interpretation Comments Urine Ketones (test code = 60564-6) NEGATIVE NEGATIVE [facility] HospitalUrine urobilinogen measurement by test strip (mass/volume)2019-08-11 09:58:00* Test Item Value Reference Range Interpretation Comments Urine Urobilinogen (test code = 15839-1) 0.2 0.2-1 [facility] HospitalUrine total bilirubin measurement (mass/volume)2019-08-11 09:58:00* Test Item Value Reference Range Interpretation Comments Urine Bilirubin (test code = 1978-6) NEGATIVE NEGATIVE [facility] HospitalUrine erythrocytes nvajgjges1858-38-61 09:58:00* Test Item Value Reference Range Interpretation Comments Urine Blood (test code = 43920-8) MODERATE NEGATIVE [facility] HospitalAutomated urine sediment leukocyte count by microscopy (number/high power field)2019-08-11 09:58:00* Test Item Value Reference Range Interpretation Comments Urine WBC (test code = 5821-4) 21-50 0-5 [facility] HospitalErythrocytes detection in urine sediment by light heiqqacbjb4093-54-90 09:58:00* Test Item Value Reference Range Interpretation Comments Urine RBC (test code = 76025-7) >50 0-5 [facility] HospitalBacteria detection in urine sediment by light dvpjlqlscg8321-65-87 09:58:00* Test Item Value Reference Range Interpretation Comments Urine Bacteria (test code = 63328-3) FEW NONE [facility] HospitalEpithelial cells detection in urine sediment by light khkgtgegcm2653-14-65 09:58:00* Test Item Value Reference Range Interpretation Comments Urine Epithelial Cells (test code = 51172-0) FEW NONE [facility]erum or plasma sodium measurement (moles/volume)2019-08-11 09:58:00* Test Item Value Reference Range Interpretation Comments Sodium Level (test code = 2951-2) 142 136-145 [facility]ennialerum or plasma potassium measurement (moles/volume)2019-08-11 09:58:00* Test Item Value Reference Range Interpretation Comments Potassium Level (test code = 2823-3) 3.6 3.5-5.1 [facility]ennialerum or plasma chloride measurement (moles/volume)2019-08-11 09:58:00* Test Item Value Reference Range Interpretation Comments Chloride Level (test code = 2075-0) 105 98-107 [facility]ennialerum or plasma carbon dioxide, total measurement (moles/volume)2019-08-11 09:58:00* Test Item Value Reference Range Interpretation Comments Carbon Dioxide Level (test code = 2028-9) 24 22-29 [facility]ennialerum or plasma anion ald1182-53-30 09:58:00* Test Item Value Reference Range Interpretation Comments Anion Gap (test code = 02141-4) 16.6 8-16 [facility]erum or plasma urea nitrogen measurement (mass/volume)2019-08-11 09:58:00* Test Item Value Reference Range Interpretation Comments Blood Urea Nitrogen (test code = 3094-0) 19 7-26 [facility]ennialerum or plasma creatinine measurement (mass/volume)2019-08-11 09:58:00* Test Item Value Reference Range Interpretation Comments Creatinine (test code = 2160-0) 1.66 0.72-1.25 [facility]ennialerum or plasma urea nitrogen/creatinine mass obtrk3785-18-44 09:58:00* Test Item Value Reference Range Interpretation Comments BUN/Creatinine Ratio (test code = 3097-3) 11 6-25 [facility] HospitalEstimated glomerular filtration rate (GFR) xopdbibfclmdj7607-66-81 09:58:00* Test Item Value Reference Range Interpretation Comments Estimat Glomerular Filtration Rate (test code = 924163498) 43 >60 Ranges were taken from the National Kidney Disease Education Program and the [facility] literature.Reference ranges:60 or greater: Quinwz67-82 ( for 3 consecutive months): Chronic kidney disease 15 or less: Kidney failureFormerly [facility] HospitalGlucose rmiqjxdkttt7044-64-45 09:58:00* Test Item Value Reference Range Interpretation Comments Glucose Level (test code = GEA4063) 140 74-118 [facility]erum or plasma calcium measurement (mass/volume)2019-08-11 09:58:00* Test Item Value Reference Range Interpretation Comments Calcium Level (test code = 97543-2) 10.0 8.4-10.2 [facility]ennialerum or plasma magnesium measurement (mass/volume)2019-08-11 09:58:00* Test Item Value Reference Range Interpretation Comments Magnesium Level (test code = 97408-8) 1.8 1.3-2.1 [facility]ennialerum or plasma total bilirubin measurement (mass/volume)2019-08-11 09:58:00* Test Item Value Reference Range Interpretation Comments Total Bilirubin (test code = 1975-2) 0.9 0.2-1.2 [facility] HospitalFluoroscopic procedure less than one hour ujcbsopc0052-11-18 09:58:00* Test Item Value Reference Range Interpretation Comments Aspartate Amino Transf (AST/SGOT) (test code = Aspartate Amino Transf (AST/SGOT)) 18 5-34 [facility]ennialerum or plasma alanine aminotransferase measurement (enzymatic activity/volume)2019-08-11 09:58:00* Test Item Value Reference Range Interpretation Comments Alanine Aminotransferase (ALT/SGPT) (test code = 1742-6) 19 0-55 [facility]erum or plasma protein measurement (mass/volume)2019-08-11 09:58:00* Test Item Value Reference Range Interpretation Comments Total Protein (test code = 2885-2) 8.2 6.5-8.1 [facility]ennialerum or plasma albumin measurement (mass/volume)2019-08-11 09:58:00* Test Item Value Reference Range Interpretation Comments Albumin (test code = 1751-7) 4.3 3.5-5.0 [facility] HospitalPlasma globulin measurement (mass/volume) 2019-08-11 09:58:00* Test Item Value Reference Range Interpretation Comments Globulin (test code = 33215-3) 3.9 2.3-3.5 [facility]erum or plasma albumin/globulin mass pfnes2264-60-02 09:58:00* Test Item Value Reference Range Interpretation Comments Albumin/Globulin Ratio (test code = 1759-0) 1.1 0.8-2.0 [facility]erum or plasma alkaline phosphatase measurement (enzymatic activity/volume)2019-08-11 09:58:00* Test Item Value Reference Range Interpretation Comments Alkaline Phosphatase (test code = 6768-6) 94 40-150 [facility] HospitalBNP Gxk-oJqe4684-47-03 09:58:00* Test Item Value Reference Range Interpretation Comments B-Type Natriuretic Peptide (test code = 77005-9) 13.1 0-100 [facility]ennialerum or plasma creatine kinase measurement (enzymatic activity/volume)2019-08-11 09:58:00* Test Item Value Reference Range Interpretation Comments Creatine Kinase (test code = 2157-6) 99 30-200 [facility]ennialerum or plasma creatine kinase MB measurement (mass/volume)2019-08-11 09:58:00* Test Item Value Reference Range Interpretation Comments Creatine Kinase MB (test code = 57509-5) 1.10 0-5.0 [facility] HospitalTroponin I measurement by highly sensitive enzyme anoenvjryif6598-70-95 09:58:00* Test Item Value Reference Range Interpretation Comments Troponin I (test code = 78199-1) 0.008 0-0.300 [facility]erum or plasma lipase measurement (enzymatic activity/volume)2019-08-11 09:58:00* Test Item Value Reference Range Interpretation Comments Lipase (test code = 3040-3) 54 8-78 [facility] HospitalBlood daisldh7648-47-08 09:58:00* Test Item Value Reference Range Interpretation Comments Blood Culture (test code = 64128774) NO GROWTH AFTER 5 DAYS, FINAL REPORT [facility]2019-08-05 15:22:00 [place] [address] Patient Name: ZAYNAB SALMERON MR #: [id number] : 1965 Age/Sex: 54/M Req #: [id number] Adm Physician: Ordered by: CARLOS COX MD Report #: [id number] Location: [facility] Room/Bed: Procedure: [id number] DX/ABDOMEN -1VIEW (KUB) Exam Date: 08/05/19 Exam [...] MD on 08/05/2019 3:24 PM Dictated By: EMLISSA QUAN MD 1524 Transcribed By: PEGGY BARNES on 08/05/19 1524 COPY TO: CARLOS COX MD Sodium Level 2019-04-01 12:59:00* Test Item Value Reference Range Interpretation Comments Sodium Level (test code = 2951-2) 137 136-145 [facility] HospitalPotassium Woqlt2743-62-77 12:59:00* Test Item Value Reference Range Interpretation Comments Potassium Level (test code = 2823-3) 3.6 3.5-5.1 [facility] HospitalChloride Qhxic2149-35-18 12:59:00* Test Item Value Reference Range Interpretation Comments Chloride Level (test code = 2075-0) 101 98-107 [facility] HospitalCarbon Dioxide Tdwoz1287-78-97 12:59:00* Test Item Value Reference Range Interpretation Comments Carbon Dioxide Level (test code = 2028-9) 21 22-29 L [facility] HospitalAnion Obn8215-86-54 12:59:00* Test Item Value Reference Range Interpretation Comments Anion Gap (test code = 67251-7) 18.6 8-16 H [facility] HospitalBlood Urea Bbisxahj0692-72-96 12:59:00* Test Item Value Reference Range Interpretation Comments Blood Urea Nitrogen (test code = 3094-0) 26 7-26 [facility] HospitalCreatinine2020-01-23 12:59:00* Test Item Value Reference Range Interpretation Comments Creatinine (test code = 2160-0) 1.60 0.72-1.25 H [facility] HospitalBUN/Creatinine Pfikf7945-43-88 12:59:00* Test Item Value Reference Range Interpretation Comments BUN/Creatinine Ratio (test code = 3097-3) 16 6-25 [facility] HospitalEstimat Glomerular Filtration Rate 2019-04-01 12:59:00* Test Item Value Reference Range Interpretation Comments Estimat Glomerular Filtration Rate (test code = 323048590) 45 >60 L Ranges were taken from the National Kidney Disease Education Program and the [facility] Foundation literature.Reference ranges:60 or greater: Xmbmmk48-81 ( for 3 consecutive months): Chronic kidney disease 15 or less: Kidney failureFormerly [facility] HospitalGlucose Keiyq8946-78-09 12:59:00* Test Item Value Reference Range Interpretation Comments Glucose Level (test code = UNQ9078) 152 74-118 H [facility] HospitalCalcium Ahkck7464-09-24 12:59:00* Test Item Value Reference Range Interpretation Comments Calcium Level (test code = 71404-4) 10.3 8.4-10.2 H [facility] HospitalTotal Rzzmsmxcf5192-85-02 12:59:00* Test Item Value Reference Range Interpretation Comments Total Bilirubin (test code = 1975-2) 1.1 0.2-1.2 [facility] HospitalAspartate Amino Transf (AST/SGOT) 2019-04-01 12:59:00* Test Item Value Reference Range Interpretation Comments Aspartate Amino Transf (AST/SGOT) (test code = Aspartate Amino Transf (AST/SGOT)) 26 5-34 [facility] HospitalAlanine Aminotransferase (ALT/SGPT) 2019-04-01 12:59:00* Test Item Value Reference Range Interpretation Comments Alanine Aminotransferase (ALT/SGPT) (test code = 1742-6) 31 0-55 [facility] HospitalTotal Klkpjcc8816-72-76 12:59:00* Test Item Value Reference Range Interpretation Comments Total Protein (test code = 2885-2) 8.1 6.5-8.1 [facility] HospitalAlbumin2020-01-23 12:59:00* Test Item Value Reference Range Interpretation Comments Albumin (test code = 1751-7) 4.5 3.5-5.0 [facility] HospitalGlobulin2020-01-23 12:59:00* Test Item Value Reference Range Interpretation Comments Globulin (test code = 25847-9) 3.6 2.3-3.5 H [facility] HospitalAlbumin/Globulin Wgqfe2078-38-65 12:59:00 * Test Item Value Reference Range Interpretation Comments Albumin/Globulin Ratio (test code = 1759-0) 1.3 0.8-2.0 [facility] HospitalAlkaline Emumtnfzbdz4224-75-23 12:59:00* Test Item Value Reference Range Interpretation Comments Alkaline Phosphatase (test code = 6768-6) 92 40-150 [facility] HospitalWhite Blood Cthhv8597-40-59 12:49:00* Test Item Value Reference Range Interpretation Comments White Blood Count (test code = 6690-2) 12.29 4.8-10.8 H [facility] HospitalRed Blood Dbfdz1444-58-19 12:49:00* Test Item Value Reference Range Interpretation Comments Red Blood Count (test code = 789-8) 5.23 4.3-5.7 [facility] HospitalHemoglobin2020-01-23 12:49:00* Test Item Value Reference Range Interpretation Comments Hemoglobin (test code = 65485-1) 14.1 14.0-18.0 [facility] HospitalHematocrit2020-01-23 12:49:00* Test Item Value Reference Range Interpretation Comments Hematocrit (test code = 4544-3) 43.4 38.2-49.6 [facility] HospitalMean Corpuscular Watzhz0536-00-86 12:49:00* Test Item Value Reference Range Interpretation Comments Mean Corpuscular Volume (test code = 787-2) 83.0 81-99 [facility] HospitalMean Corpuscular Yfxqjahipd6935-12-26 12:49:00* Test Item Value Reference Range Interpretation Comments Mean Corpuscular Hemoglobin (test code = 785-6) 27.0 28-32 L [facility] HospitalMean Corpuscular Hemoglobin Concent 2019-04-01 12:49:00* Test Item Value Reference Range Interpretation Comments Mean Corpuscular Hemoglobin Concent (test code = 786-4) 32.5 31-35 [facility] HospitalRed Cell Distribution Lwvds0656-35-87 12:49:00* Test Item Value Reference Range Interpretation Comments Red Cell Distribution Width (test code = 44917-7) 15.4 11.7 -14.4 H [facility] HospitalPlatelet Rqnuc2403-91-03 12:49:00* Test Item Value Reference Range Interpretation Comments Platelet Count (test code = 777-3) 279 140-360 [facility] HospitalNeutrophils (%) (Auto)2019-04-01 12:49:00 * Test Item Value Reference Range Interpretation Comments Neutrophils (%) (Auto) (test code = 63997-6) 68.1 38.7-80.0 [facility] HospitalLymphocytes (%) (Auto)2019-04-01 12:49:00 * Test Item Value Reference Range Interpretation Comments Lymphocytes (%) (Auto) (test code = 736-9) 22.0 18.0-39.1 [facility] HospitalMonocytes (%) (Auto)2019-04-01 12:49:00* Test Item Value Reference Range Interpretation Comments Monocytes (%) (Auto) (test code = 5905-5) 7.2 4.4-11.3 [facility] HospitalEosinophils (%) (Auto)2019-04-01 12:49:00 * Test Item Value Reference Range Interpretation Comments Eosinophils (%) (Auto) (test code = 713-8) 1.8 0.0-6.0 [facility] HospitalBasophils (%) (Auto)2019-04-01 12:49:00* Test Item Value Reference Range Interpretation Comments Basophils (%) (Auto) (test code = 706-2) 0.4 0.0-1.0 [facility] HospitalIM GRANULOCYTES %2019-04-01 12:49:00* Test Item Value Reference Range Interpretation Comments IM GRANULOCYTES % (test code = IM GRANULOCYTES %) 0.5 0.0- 1.0 [facility] HospitalNeutrophils # (Auto)2019-04-01 12:49:00* Test Item Value Reference Range Interpretation Comments Neutrophils # (Auto) (test code = 751-8) 8.4 2.1-6.9 H [facility] HospitalLymphocytes # (Auto)2019-04-01 12:49:00* Test Item Value Reference Range Interpretation Comments Lymphocytes # (Auto) (test code = 22440-8) 2.7 1.0-3.2 [facility] HospitalMonocytes # (Auto)2019-04-01 12:49:00* Test Item Value Reference Range Interpretation Comments Monocytes # (Auto) (test code = 742-7) 0.9 0.2-0.8 H [facility] HospitalEosinophils # (Auto)2019-04-01 12:49:00* Test Item Value Reference Range Interpretation Comments Eosinophils # (Auto) (test code = 711-2) 0.2 0.0-0.4 [facility] HospitalBasophils # (Auto)2019-04-01 12:49:00* Test Item Value Reference Range Interpretation Comments Basophils # (Auto) (test code = 704-7) 0.1 0.0-0.1 [facility] HospitalAbsolute Immature Granulocyte (auto 2019-04-01 12:49:00* Test Item Value Reference Range Interpretation Comments Absolute Immature Granulocyte (auto (chel t code = Absolute Immature Granulocyte (auto) 0.06 0-0.1 [facility] HospitalUrine QLE3893-22-30 12:03:00* Test Item Value Reference Range Interpretation Comments Urine WBC (test code = 5821-4) 21-50 0-5 H [facility] HospitalUrine BEF0511-23-90 12:03:00* Test Item Value Reference Range Interpretation Comments Urine RBC (test code = 77151-5) 11-20 0-5 H [facility] HospitalUrine Amnnwaws5892-36-63 12:03:00* Test Item Value Reference Range Interpretation Comments Urine Bacteria (test code = 74903-7) MANY NONE H [facility] HospitalUrine Epithelial Kmfwm4103-67-78 12:03:00 * Test Item Value Reference Range Interpretation Comments Urine Epithelial Cells (test code = 11849-2) MODERATE NONE [facility] Tswnm8489-00-04 12:03:00* Test Item Value Reference Range Interpretation Comments Urine Yeast (test code = 41419-9) MANY NONE H [facility] HospitalCT ABDOMEN/PELVIS XL1610-41-86 11:48:00 [facility] [address] [place] [address] Patient Name: ZAYNAB SALMERON MR #: [id number] : 1965 Age/Sex: 54/M Req #: [id number] Adm Physician: Ordered by: RAMAN THAKKAR DIRECTOR OF STRATEGIC PROGRAMS Report #: [id number] Location: ER Room/Bed: Procedure: 012 17 CT/CT [...] Statu s post cholecystectomy. Signed by: Navarro Orr on 04/01/2019 11:56 A M Dictated By: NAVARRO ORR MD 1156 Transcribed By: MICHEAL on 04/01/19 1156 COPY TO: RAMAN CHICAS DIRECTOR OF STRATEGIC PROGRAMS Urine Bmjyo8335-40-55 11:33:00* Test Item Value Reference Range Interpretation Comments Urine Color (test code = 5778-6) YELLOW YELLOW [facility] HospitalUrine Xnbyzto0678-44-22 11:33:00* Test Item Value Reference Range Interpretation Comments Urine Clarity (test code = 12549-1) CLOUDY CLEAR H [facility] HospitalUrine Specific Ftqcylz6819-98-37 11:33:00 * Test Item Value Reference Range Interpretation Comments Urine Specific [place] (test code = 5811-5) 1.015 1.010-1.02 5 [facility] HospitalUrine rM9425-56-25 11:33:00* Test Item Value Reference Range Interpretation Comments Urine pH (test code = 88641-0) 6 5-7 [facility] HospitalUrine Leukocyte Vryfujlz8097-42-21 11:33:00* Test Item Value Reference Range Interpretation Comments Urine Leukocyte Esterase (test code = 5799-2) SMALL NEGATIVE [facility] HospitalUrine Wtndisl7873-32-37 11:33:00* Test Item Value Reference Range Interpretation Comments Urine Nitrite (test code = 72526-5) NEGATIVE NEGATIVE [facility] HospitalUrine Ourtysu0368-51-39 11:33:00* Test Item Value Reference Range Interpretation Comments Urine Protein (test code = 5804-0) NEGATIVE NEGATIVE [facility] HospitalUrine Glucose (UA)2019-04-01 11:33:00* Test Item Value Reference Range Interpretation Comments Urine Glucose (UA) (test code = 2349-9) 3+ NEGATIVE [facility] HospitalUrine Ndatwys2133-82-77 11:33:00* Test Item Value Reference Range Interpretation Comments Urine Ketones (test code = 46155-0) NEGATIVE NEGATIVE [facility] HospitalUrine Orgtereulncc1149-14-16 11:33:00* Test Item Value Reference Range Interpretation Comments Urine Urobilinogen (test code = 35274-6) 0.2 0.2-1 [facility] HospitalUrine Mhkxfllns1413-49-32 11:33:00* Test Item Value Reference Range Interpretation Comments Urine Bilirubin (test code = 1978-6) NEGATIVE NEGATIVE [facility] HospitalUrine Wakdv1732-48-33 11:33:00* Test Item Value Reference Range Interpretation Comments Urine Blood (test code = 55789-2) 1+ NEGATIVE [facility] HospitalYeast detection in urine sediment by light tomibgvcuo0421-29-90 09:30:00* Test Item Value Reference Range Interpretation Comments Urine Yeast (test code = 13479-1) MANY NONE [facility] HospitalBacterial urine cgyyksb6059-38-35 09:30:00* Test Item Value Reference Range Interpretation Comments Urine Culture (test code = 630-4) MICH PARAPSILOSIS [facility] HospitalYeast detection in urine sediment by light dqrdbfhdvf8564-27-41 09:30:00* Test Item Value Reference Range Interpretation Comments Urine Yeast (test code = 77618-9) MANY NONE [facility] HospitalBacterial urine ufdbdme0834-27-35 09:30:00* Test Item Value Reference Range Interpretation Comments Urine Culture (test code = 630-4) MICH PARAPSILOSIS [facility]odium Vgpvh1213-00-98 21:45:00* Test Item Value Reference Range Interpretation Comments Sodium Level (test code = 2951-2) 139 136-145 [facility] HospitalPotassium Nygvj8784-27-73 21:45:00* Test Item Value Reference Range Interpretation Comments Potassium Level (test code = 2823-3) 3.6 3.5-5.1 [facility] HospitalChloride Vanix1232-24-31 21:45:00* Test Item Value Reference Range Interpretation Comments Chloride Level (test code = 2075-0) 104 98-107 [facility] HospitalCarbon Dioxide Znduq3270-05-32 21:45:00* Test Item Value Reference Range Interpretation Comments Carbon Dioxide Level (test code = 2028-9) 23 22-29 [facility] HospitalAnion Kti1945-87-81 21:45:00* Test Item Value Reference Range Interpretation Comments Anion Gap (test code = 48579-6) 15.6 8-16 [facility] HospitalBlood Urea Rtmaqslz3441-13-18 21:45:00* Test Item Value Reference Range Interpretation Comments Blood Urea Nitrogen (test code = 3094-0) 20 7-26 [facility] HospitalCreatinine2020-01-11 21:45:00* Test Item Value Reference Range Interpretation Comments Creatinine (test code = 2160-0) 1.62 0.72-1.25 H [facility] HospitalBUN/Creatinine Bfewb1164-68-32 21:45:00* Test Item Value Reference Range Interpretation Comments BUN/Creatinine Ratio (test code = 3097-3) 12 6-25 [facility] HospitalEstimat Glomerular Filtration Rate 2019-03-20 21:45:00* Test Item Value Reference Range Interpretation Comments Estimat Glomerular Filtration Rate (test code = 043039785) 44 >60 L Ranges were taken from the National Kidney Disease Education Program and the [facility] literature.Reference ranges:60 or greater: Vlkapx64-39 ( for 3 consecutive months): Chronic kidney disease 15 or less: Kidney failureFormerly [facility] HospitalGlucose Gzuaz6996-22-54 21:45:00* Test Item Value Reference Range Interpretation Comments Glucose Level (test code = DZO4782) 163 74-118 H [facility] HospitalCalcium Gbtwy2093-21-33 21:45:00* Test Item Value Reference Range Interpretation Comments Calcium Level (test code = 29328-6) 9.2 8.4-10.2 [facility] HospitalTotal Vdfprdpdd4014-23-65 21:45:00* Test Item Value Reference Range Interpretation Comments Total Bilirubin (test code = 1975-2) 0.7 0.2-1.2 [facility] HospitalAspartate Amino Transf (AST/SGOT) 2019-03-20 21:45:00* Test Item Value Reference Range Interpretation Comments Aspartate Amino Transf (AST/SGOT) (test code = Aspartate Amino Transf (AST/SGOT)) 36 5-34 H [facility] HospitalAlanine Aminotransferase (ALT/SGPT) 2019-03-20 21:45:00* Test Item Value Reference Range Interpretation Comments Alanine Aminotransferase (ALT/SGPT) (test code = 1742-6) 38 0-55 [facility] HospitalTotal Qnfutyb1087-15-88 21:45:00* Test Item Value Reference Range Interpretation Comments Total Protein (test code = 2885-2) 7.2 6.5-8.1 [facility] HospitalAlbumin2020-01-11 21:45:00* Test Item Value Reference Range Interpretation Comments Albumin (test code = 1751-7) 3.7 3.5-5.0 [facility] HospitalGlobulin2020-01-11 21:45:00* Test Item Value Reference Range Interpretation Comments Globulin (test code = 77758-2) 3.5 2.3-3.5 [facility] HospitalAlbumin/Globulin Szklg2277-59-79 21:45:00 * Test Item Value Reference Range Interpretation Comments Albumin/Globulin Ratio (test code = 1759-0) 1.1 0.8-2.0 [facility] HospitalAlkaline Vqwdcbowurj2851-90-10 21:45:00* Test Item Value Reference Range Interpretation Comments Alkaline Phosphatase (test code = 6768-6) 81 40-150 [facility] HospitalWhite Blood Bsoyq6267-51-37 21:27:00* Test Item Value Reference Range Interpretation Comments White Blood Count (test code = 6690-2) 8.75 4.8-10.8 [facility] HospitalRed Blood Zxlru1430-59-56 21:27:00* Test Item Value Reference Range Interpretation Comments Red Blood Count (test code = 789-8) 4.65 4.3-5.7 [facility] HospitalHemoglobin2020-01-11 21:27:00* Test Item Value Reference Range Interpretation Comments Hemoglobin (test code = 76882-0) 12.4 14.0-18.0 L [facility] HospitalHematocrit2020-01-11 21:27:00* Test Item Value Reference Range Interpretation Comments Hematocrit (test code = 4544-3) 39.4 38.2-49.6 [facility] HospitalMean Corpuscular Orzcrs8822-49-22 21:27:00* Test Item Value Reference Range Interpretation Comments Mean Corpuscular Volume (test code = 787-2) 84.7 81-99 [facility] HospitalMean Corpuscular Kapbfmgsbv2402-95-84 21:27:00* Test Item Value Reference Range Interpretation Comments Mean Corpuscular Hemoglobin (test code = 785-6) 26.7 28-32 L [facility] HospitalMean Corpuscular Hemoglobin Concent 2019-03-20 21:27:00* Test Item Value Reference Range Interpretation Comments Mean Corpuscular Hemoglobin Concent (test code = 786-4) 31.5 31-35 [facility] HospitalRed Cell Distribution Rymgd8842-86-98 21:27:00* Test Item Value Reference Range Interpretation Comments Red Cell Distribution Width (test code = 53583-8) 15.8 11.7 -14.4 H [facility] HospitalPlatelet Tuidq6912-50-90 21:27:00* Test Item Value Reference Range Interpretation Comments Platelet Count (test code = 777-3) 197 140-360 [facility] HospitalNeutrophils (%) (Auto)2019-03-20 21:27:00 * Test Item Value Reference Range Interpretation Comments Neutrophils (%) (Auto) (test code = 45318-8) 73.0 38.7-80.0 [facility] HospitalLymphocytes (%) (Auto)2019-03-20 21:27:00 * Test Item Value Reference Range Interpretation Comments Lymphocytes (%) (Auto) (test code = 736-9) 12.5 18.0-39.1 L [facility] HospitalMonocytes (%) (Auto)2019-03-20 21:27:00* Test Item Value Reference Range Interpretation Comments Monocytes (%) (Auto) (test code = 5905-5) 11.8 4.4-11.3 H [facility] HospitalEosinophils (%) (Auto)2019-03-20 21:27:00 * Test Item Value Reference Range Interpretation Comments Eosinophils (%) (Auto) (test code = 713-8) 1.6 0.0-6.0 [facility] HospitalBasophils (%) (Auto)2019-03-20 21:27:00* Test Item Value Reference Range Interpretation Comments Basophils (%) (Auto) (test code = 706-2) 0.3 0.0-1.0 [facility] HospitalIM GRANULOCYTES %2019-03-20 21:27:00* Test Item Value Reference Range Interpretation Comments IM GRANULOCYTES % (test code = IM GRANULOCYTES %) 0.8 0.0- 1.0 [facility] HospitalNeutrophils # (Auto)2019-03-20 21:27:00* Test Item Value Reference Range Interpretation Comments Neutrophils # (Auto) (test code = 751-8) 6.4 2.1-6.9 [facility] HospitalLymphocytes # (Auto)2019-03-20 21:27:00* Test Item Value Reference Range Interpretation Comments Lymphocytes # (Auto) (test code = 29094-6) 1.1 1.0-3.2 [facility] HospitalMonocytes # (Auto)2019-03-20 21:27:00* Test Item Value Reference Range Interpretation Comments Monocytes # (Auto) (test code = 742-7) 1.0 0.2-0.8 H [facility] HospitalEosinophils # (Auto)2019-03-20 21:27:00* Test Item Value Reference Range Interpretation Comments Eosinophils # (Auto) (test code = 711-2) 0.1 0.0-0.4 [facility] HospitalBasophils # (Auto)2019-03-20 21:27:00* Test Item Value Reference Range Interpretation Comments Basophils # (Auto) (test code = 704-7) 0.0 0.0-0.1 [facility] HospitalAbsolute Immature Granulocyte (auto 2019-03-20 21:27:00* Test Item Value Reference Range Interpretation Comments Absolute Immature Granulocyte (auto (chel t code = Absolute Immature Granulocyte (auto) 0.07 0-0.1 [facility] HospitalUrine ZAA2274-12-62 21:25:00* Test Item Value Reference Range Interpretation Comments Urine WBC (test code = 5821-4) 21-50 0-5 H [facility] HospitalUrine AFH4471-29-58 21:25:00* Test Item Value Reference Range Interpretation Comments Urine RBC (test code = 98209-8) 21-50 0-5 H [facility] HospitalUrine Sksdfgbc9126-09-75 21:25:00* Test Item Value Reference Range Interpretation Comments Urine Bacteria (test code = 10623-2) PRESENT NONE [facility] HospitalUrine Epithelial Ozodj9050-64-56 21:25:00 * Test Item Value Reference Range Interpretation Comments Urine Epithelial Cells (test code = 79074-8) RARE NONE [facility] HospitalUrine Luhwc5558-64-83 21:19:00* Test Item Value Reference Range Interpretation Comments Urine Color (test code = 5778-6) YELLOW YELLOW [facility] HospitalUrine Lhxxzqv9753-65-65 21:19:00* Test Item Value Reference Range Interpretation Comments Urine Clarity (test code = 64913-5) CLOUDY CLEAR H [facility] HospitalUrine Specific Wuxlasa8918-61-02 21:19:00 * Test Item Value Reference Range Interpretation Comments Urine Specific [place] (test code = 5811-5) 1.020 1.010-1.02 5 [facility] HospitalUrine cM8674-31-28 21:19:00* Test Item Value Reference Range Interpretation Comments Urine pH (test code = 14138-3) 6.5 5-7 [facility] HospitalUrine Leukocyte Uthgkffh0088-56-54 21:19:00* Test Item Value Reference Range Interpretation Comments Urine Leukocyte Esterase (test code = 5799-2) SMALL NEGATIVE [facility] Zwzzayk8322-17-14 21:19:00* Test Item Value Reference Range Interpretation Comments Urine Nitrite (test code = 69638-2) NEGATIVE NEGATIVE [facility] HospitalUrine Swcmcob4445-00-88 21:19:00* Test Item Value Reference Range Interpretation Comments Urine Protein (test code = 5804-0) NEGATIVE NEGATIVE [facility] HospitalUrine Glucose (UA)2019-03-20 21:19:00* Test Item Value Reference Range Interpretation Comments Urine Glucose (UA) (test code = 2349-9) 3+ NEGATIVE H [facility] Joguesw3891-61-59 21:19:00* Test Item Value Reference Range Interpretation Comments Urine Ketones (test code = 85693-0) NEGATIVE NEGATIVE [facility] Uwkodaeqytwg5235-39-54 21:19:00* Test Item Value Reference Range Interpretation Comments Urine Urobilinogen (test code = 72774-3) 0.2 0.2-1 [facility] HospitalUrine Axglsdfhk8562-55-55 21:19:00* Test Item Value Reference Range Interpretation Comments Urine Bilirubin (test code = 1978-6) NEGATIVE NEGATIVE [facility] HospitalUrine Wazsq8509-45-55 21:19:00* Test Item Value Reference Range Interpretation Comments Urine Blood (test code = 42788-7) 3+ NEGATIVE [facility] CenterABDOMEN-1VIEW (KUB)2019-03-20 21:19:00 [facility] [address] [address] Patient Name: ZAYNAB SALMERON MR #: [id number] : 1965 Age/Sex: 54/M Req #: [id number] Adm Physician: Ordered by: NAVARRO CHONG DO Report #: [id number] Location: ER Room/Bed: Procedure: 1819-2329 D X/ABDOMEN-1VIEW (KUB) Exam Date: 03/20/19 Exam [...] bowel gas pattern. Signed by: Dr. Vy Lewis M.D. on 03/20/2019 9:23 PM Dictated By: VY LEWIS MD 22 Transcribed By: MICHEAL on 03/20/192122 COPY TO: NAVARRO CHONG DO Bedside Wlojlif0401-07-04 06:07:00* Test Item Value Reference Range Interpretation Comments Bedside Glucose (test code = 10802-6) 192 70-120 H Meter ID: [id number] [facility] HospitalBedside Glucose 2019-03-19 06:07:00* Test Item Value Reference Range Interpretation Comments Bedside Glucose (test code = 65241-1) 192 70-120 H Meter ID: [id number] [facility] HospitalCapillary blood glucose measurement by glucometer (mass/volume)2019-03-19 04:38:00* Test Item Value Reference Range Interpretation Comments Bedside Glucose (test code = 94767-9) 192 70-120 Meter ID: [id number] [facility] HospitalCapillary blood glucose measurement by glucometer (mass/volume)2019-03-19 04:38:00* Test Item Value Reference Range Interpretation Comments Bedside Glucose (test code = 36012-2) 192 70-120 Meter ID: [id number] [facility] HospitalUrine Culture 2019-02-18 06:23:00* Test Item Value Reference Range Interpretation Comments Urine Culture (test code = 630-4) No Result Data Provided [facility] HospitalUrine Jfzulpe9400-43-01 06:23:00* Test Item Value Reference Range Interpretation Comments Urine Culture (test code = 630-4) No Result Data Provided [facility] HospitalUrine Hkqoxvo6984-46-85 06:23:00* Test Item Value Reference Range Interpretation Comments Urine Culture (test code = 630-4) No Result Data Provided [facility]ennialodium Zzbxe1743-17-08 06:22:00* Test Item Value Reference Range Interpretation Comments Sodium Level (test code = 2951-2) 136 136-145 [facility] HospitalPotassium Oubpv7834-48-10 06:22:00* Test Item Value Reference Range Interpretation Comments Potassium Level (test code = 2823-3) 3.9 3.5-5.1 [facility] HospitalChloride Kqgtf9837-14-84 06:22:00* Test Item Value Reference Range Interpretation Comments Chloride Level (test code = 2075-0) 104 98-107 [facility] HospitalCarbon Dioxide Lngng9927-81-15 06:22:00* Test Item Value Reference Range Interpretation Comments Carbon Dioxide Level (test code = 2028-9) 21 22-29 L [facility] HospitalAnion Ydf2286-30-24 06:22:00* Test Item Value Reference Range Interpretation Comments Anion Gap (test code = 53445-0) 14.9 8-16 [facility] HospitalBlood Urea Qfddxyhv2531-59-00 06:22:00* Test Item Value Reference Range Interpretation Comments Blood Urea Nitrogen (test code = 3094-0) 22 7-26 [facility] HospitalCreatinine2019-12-12 06:22:00* Test Item Value Reference Range Interpretation Comments Creatinine (test code = 2160-0) 1.72 0.72-1.25 H [facility] HospitalBUN/Creatinine Mkaeu7738-07-23 06:22:00* Test Item Value Reference Range Interpretation Comments BUN/Creatinine Ratio (test code = 3097-3) 13 - [facility] HospitalEstimat Glomerular Filtration Rate 2019-02-18 06:22:00* Test Item Value Reference Range Interpretation Comments Estimat Glomerular Filtration Rate (test code = 035456689) 41 >60 L Ranges were taken from the National Kidney Disease Education Program and the [facility] [employer] literature.Reference ranges:60 or greater: Bcarsl02-41 ( for 3 consecutive months): Chronic kidney disease 15 or less: Kidney failureFormerly [facility] HospitalGlucose Zkuzy2848-42-72 06:22:00* Test Item Value Reference Range Interpretation Comments Glucose Level (test code = NGV7047) 188 74-118 H [facility] HospitalCalcium Psnzh3579-36-60 06:22:00* Test Item Value Reference Range Interpretation Comments Calcium Level (test code = 19471-7) 9.1 8.4-10.2 [facility] HospitalWhite Blood Tfwax7283-55-33 05:47:00* Test Item Value Reference Range Interpretation Comments White Blood Count (test code = 6690-2) 16.24 4.8-10.8 H [facility] HospitalRed Blood Hhwvr1004-89-82 05:47:00* Test Item Value Reference Range Interpretation Comments Red Blood Count (test code = 789-8) 4.45 4.3-5.7 [facility] HospitalHemoglobin2019-12-12 05:47:00* Test Item Value Reference Range Interpretation Comments Hemoglobin (test code = 97962-9) 12.0 14.0-18.0 L [facility] HospitalHematocrit2019-12-12 05:47:00* Test Item Value Reference Range Interpretation Comments Hematocrit (test code = 4544-3) 38.4 38.2-49.6 [facility] HospitalMean Corpuscular Bitdkf0573-31-22 05:47:00* Test Item Value Reference Range Interpretation Comments Mean Corpuscular Volume (test code = 787-2) 86.3 81-99 [facility] HospitalMean Corpuscular Zednzspbum6460-22-07 05:47:00* Test Item Value Reference Range Interpretation Comments Mean Corpuscular Hemoglobin (test code = 785-6) 27.0 28-32 L [facility] HospitalMean Corpuscular Hemoglobin Concent 2019-02-18 05:47:00* Test Item Value Reference Range Interpretation Comments Mean Corpuscular Hemoglobin Concent (test code = 786-4) 31.3 31-35 [facility] HospitalRed Cell Distribution Vhnsg6486-68-67 05:47:00* Test Item Value Reference Range Interpretation Comments Red Cell Distribution Width (test code = 33384-6) 15.0 11.7 -14.4 H [facility] HospitalPlatelet Xkyaq1233-85-48 05:47:00* Test Item Value Reference Range Interpretation Comments Platelet Count (test code = 777-3) 184 140-360 [facility] HospitalNeutrophils (%) (Auto)2019-02-18 05:47:00 * Test Item Value Reference Range Interpretation Comments Neutrophils (%) (Auto) (test code = 24876-1) 84.7 38.7-80.0 H [facility] HospitalLymphocytes (%) (Auto)2019-02-18 05:47:00 * Test Item Value Reference Range Interpretation Comments Lymphocytes (%) (Auto) (test code = 736-9) 5.5 18.0-39.1 L [facility] HospitalMonocytes (%) (Auto)2019-02-18 05:47:00* Test Item Value Reference Range Interpretation Comments Monocytes (%) (Auto) (test code = 5905-5) 7.9 4.4-11.3 [facility] HospitalEosinophils (%) (Auto)2019-02-18 05:47:00 * Test Item Value Reference Range Interpretation Comments Eosinophils (%) (Auto) (test code = 713-8) 1.2 0.0-6.0 [facility] HospitalBasophils (%) (Auto)2019-02-18 05:47:00* Test Item Value Reference Range Interpretation Comments Basophils (%) (Auto) (test code = 706-2) 0.1 0.0-1.0 [facility] HospitalIM GRANULOCYTES %2019-02-18 05:47:00* Test Item Value Reference Range Interpretation Comments IM GRANULOCYTES % (test code = IM GRANULOCYTES %) 0.6 0.0- 1.0 [facility] HospitalNeutrophils # (Auto)2019-02-18 05:47:00* Test Item Value Reference Range Interpretation Comments Neutrophils # (Auto) (test code = 751-8) 13.7 2.1-6.9 H [facility] HospitalLymphocytes # (Auto)2019-02-18 05:47:00* Test Item Value Reference Range Interpretation Comments Lymphocytes # (Auto) (test code = 31429-7) 0.9 1.0-3.2 L [facility] HospitalMonocytes # (Auto)2019-02-18 05:47:00* Test Item Value Reference Range Interpretation Comments Monocytes # (Auto) (test code = 742-7) 1.3 0.2-0.8 H [facility] HospitalEosinophils # (Auto)2019-02-18 05:47:00* Test Item Value Reference Range Interpretation Comments Eosinophils # (Auto) (test code = 711-2) 0.2 0.0-0.4 [facility] HospitalBasophils # (Auto)2019-02-18 05:47:00* Test Item Value Reference Range Interpretation Comments Basophils # (Auto) (test code = 704-7) 0.0 0.0-0.1 [facility] HospitalAbsolute Immature Granulocyte (auto 2019-02-18 05:47:00* Test Item Value Reference Range Interpretation Comments Absolute Immature Granulocyte (auto (chel t code = Absolute Immature Granulocyte (auto) 0.10 0-0.1 [facility] HospitalBedside Hstprrg5537-72-37 22:52:00* Test Item Value Reference Range Interpretation Comments Bedside Glucose (test code = 86206-6) 246 70-120 H Meter ID: [id number] Country Memorial HospitalTotal Bilirubin 2019-02-17 06:35:00* Test Item Value Reference Range Interpretation Comments Total Bilirubin (test code = 1975-2) 1.5 0.2-1.2 H [facility] HospitalAspartate Amino Transf (AST/SGOT) 2019-02-17 06:35:00* Test Item Value Reference Range Interpretation Comments Aspartate Amino Transf (AST/SGOT) (test code = Aspartate Amino Transf (AST/SGOT)) 18 5-34 [facility] HospitalAlanine Aminotransferase (ALT/SGPT) 2019-02-17 06:35:00* Test Item Value Reference Range Interpretation Comments Alanine Aminotransferase (ALT/SGPT) (test code = 1742-6) 20 0-55 [facility] HospitalTotal Duqotbh4362-13-95 06:35:00* Test Item Value Reference Range Interpretation Comments Total Protein (test code = 2885-2) 6.8 6.5-8.1 [facility] HospitalAlbumin2019-12-11 06:35:00* Test Item Value Reference Range Interpretation Comments Albumin (test code = 1751-7) 3.7 3.5-5.0 [facility] HospitalGlobulin2019-12-11 06:35:00* Test Item Value Reference Range Interpretation Comments Globulin (test code = 00535-8) 3.1 2.3-3.5 [facility] HospitalAlbumin/Globulin Xctmd6640-95-42 06:35:00 * Test Item Value Reference Range Interpretation Comments Albumin/Globulin Ratio (test code = 1759-0) 1.2 0.8-2.0 [facility] HospitalAlkaline Kzxumyebzwx7577-32-85 06:35:00* Test Item Value Reference Range Interpretation Comments Alkaline Phosphatase (test code = 6768-6) 77 40-150 [facility] HospitalUrine RFY0920-91-98 14:30:00* Test Item Value Reference Range Interpretation Comments Urine WBC (test code = 5821-4) 21-50 0-5 H [facility] HospitalUrine IWC0956-34-08 14:30:00* Test Item Value Reference Range Interpretation Comments Urine RBC (test code = 32081-3) 11-20 0-5 H [facility] HospitalUrine Lsrsqkxp4196-63-41 14:30:00* Test Item Value Reference Range Interpretation Comments Urine Bacteria (test code = 64374-3) RARE NONE [facility] HospitalUrine Epithelial Nzswm1554-84-02 14:30:00 * Test Item Value Reference Range Interpretation Comments Urine Epithelial Cells (test code = 32610-1) NONE NONE [facility] HospitalUrine Rklyv8497-67-35 14:09:00* Test Item Value Reference Range Interpretation Comments Urine Color (test code = 5778-6) YELLOW YELLOW [facility] HospitalUrine Wuwmtfj3145-25-28 14:09:00* Test Item Value Reference Range Interpretation Comments Urine Clarity (test code = 38725-7) SL CLOUDY CLEAR H [facility] HospitalUrine Specific Mqyjlyv6838-83-79 14:09:00 * Test Item Value Reference Range Interpretation Comments Urine Specific [place] (test code = 5811-5) 1.010 1.010-1.02 5 [facility] HospitalUrine kA6526-62-90 14:09:00* Test Item Value Reference Range Interpretation Comments Urine pH (test code = 25211-0) 6 5-7 [facility] HospitalUrine Leukocyte Atctyfcl6444-49-74 14:09:00* Test Item Value Reference Range Interpretation Comments Urine Leukocyte Esterase (test code = 5799-2) NEGATIVE NEGATIVE [facility] HospitalUrine Tqvvmky7815-91-77 14:09:00* Test Item Value Reference Range Interpretation Comments Urine Nitrite (test code = 12192-1) NEGATIVE NEGATIVE [facility] HospitalUrine Gdljqrq8001-15-04 14:09:00* Test Item Value Reference Range Interpretation Comments Urine Protein (test code = 5804-0) TRACE NEGATIVE H [facility] HospitalUrine Glucose (UA)2019-02-16 14:09:00* Test Item Value Reference Range Interpretation Comments Urine Glucose (UA) (test code = 2349-9) 3+ NEGATIVE H [facility] HospitalUrine Dyotvws0272-04-35 14:09:00* Test Item Value Reference Range Interpretation Comments Urine Ketones (test code = 32905-5) NEGATIVE NEGATIVE [facility] HospitalUrine Ugbumvovmvfo7422-90-69 14:09:00* Test Item Value Reference Range Interpretation Comments Urine Urobilinogen (test code = 26942-0) 0.2 0.2-1 [facility] HospitalUrine Cuvrxutuu9058-39-95 14:09:00* Test Item Value Reference Range Interpretation Comments Urine Bilirubin (test code = 1978-6) NEGATIVE NEGATIVE [facility] HospitalUrine Lnseq2509-77-09 14:09:00* Test Item Value Reference Range Interpretation Comments Urine Blood (test code = 45354-1) MODERATE NEGATIVE [facility] HospitalCT ABDOMEN/PELVIS SK6295-26-74 13:44:00 [facility] [address] [place] [address] Patient Name: ZAYNAB SALMERON MR #: [id number] : 1965 Age/Sex: 54/M Req #: [id number] Adm Physician: Ordered by: DOMENIC CHAPMAN MD, MD Report #: [id number] Location: ER Room/Bed: Procedure: 1210-[address]/CT ABDOMEN/PELVIS WO Exam Date: 02/16/19 Exam Time: 1250 REPORT STATUS: Signed TECHNIQUE: CT of the abdomen and pelvis WITHOUT intravenous contrast and wit hout oral contrast. Dose modulation, iterative reconstruction, and/or weight-b ased adjustment of the mA/kV was utilized to reduce the radiation dose to as l ow as reasonably achievable. INDICATION: STONE PROTOCOL [id number] 1250 Y. COMPARISON: CT from 07/08/2017. FINDINGS: [...] liver with hepatosplenom egaly. Signed by: Danyelle Koehler JR, MD on 02/16/2019 1:58 PM Dictated By: DANYELLE KOEHLER MD 2832 T ranscribed By: MICHEAL on 02/16/19 7391 COPY TO: ADELADOMENIC Magnesium Tmiug4536-88-31 13:31:00* Test Item Value Reference Range Interpretation Comments Magnesium Level (test code = 85188-3) 1.8 1.3-2.1 [facility] HospitalLipase2019-12-10 13:31:00* Test Item Value Reference Range Interpretation Comments Lipase (test code = 3040-3) 47 - [facility] HospitalMagnesium Mfifx8992-42-93 13:31:00* Test Item Value Reference Range Interpretation Comments Magnesium Level (test code = 14698-3) 1.8 1.3-2.1 [facility] HospitalLipase2019-12-10 13:31:00* Test Item Value Reference Range Interpretation Comments Lipase (test code = 3040-3) 47 [facility] HospitalMagnesium Jgrcl8944-55-92 13:31:00* Test Item Value Reference Range Interpretation Comments Magnesium Level (test code = 44014-8) 1.8 1.3-2.1 [facility] HospitalLipase2019-12-10 13:31:00* Test Item Value Reference Range Interpretation Comments Lipase (test code = 3040-3) 47 [facility] HospitalABDOMEN-1VIEW (KUB)2019-02-15 10:51:00 [address] [address] Patient Name: ZAYNAB SALMERON MR #: [id number] : 1965 Age/Sex: 54/M Req #: [id number] Adm Physician: Ordered by: CARLOS COX MD Report #: [id number] Location: RAD Room/Bed: Procedure: 6570-2419 DX/ABDOMEN-1VIEW (KUB) Exam Date: 02/15/19 Exam Jerry [...] Bi lateral renal calculi. Signed by: Brett Pastrana MD on 02/15/2019 10:52 A M Dictated By: BRETT PASTRANA MD 105 Transcribed By: MICHEAL on 02/15/19 105 COPY T O: CARLOS COX MD ABDOMEN-1VIEW ([facility])2018-11-27 11:39:00 [address] [address] Patient Name: ZAYNAB SALMERON MR #: [id number] : 1965 Age/Sex: 53/M Req #: [id number] Adm Physician: Ordered by: CARLOS COX MD Report #: [id number] Location: RAD Room/Bed: Procedure: [id number] DX/ABDOMEN-1VIEW (KUB) Exam Date: 11/27/18 Exam Jerry [...] calculi as described above. Signed by: Brett Pastrana MD on 11/27 11:43 AM Dictated By: BRETT PASTRANA MD 1143 Transcribed By: MICHEAL on 11/27/18 1143 COPY TO: CARLOS COX MD Blood Pnzhizt2197-14-98 21:14:00* Test Item Value Reference Range Interpretation Comments Blood Culture (test code = 94435410) NO GROWTH AFTER 5 DAYS, FINAL REPORT [facility] Rnbdmiz6758-83-30 21:14:00* Test Item Value Reference Range Interpretation Comments Blood Culture (test code = 17696929) NO GROWTH AFTER 5 DAYS, FINAL REPORT [facility] Ygeshqi3607-96-47 21:14:00* Test Item Value Reference Range Interpretation Comments Blood Culture (test code = 84297565) NO GROWTH AFTER 5 DAYS, FINAL REPORT [facility] HospitalUrine Kgkphon7002-35-51 08:06:00* Test Item Value Reference Range Interpretation Comments Urine Culture (test code = 630-4) No Result Data Provided [facility] Omkueeg0907-42-73 08:06:00* Test Item Value Reference Range Interpretation Comments Urine Culture (test code = 630-4) No Result Data Provided [facility] Unzqbvr1142-25-41 08:06:00* Test Item Value Reference Range Interpretation Comments Urine Culture (test code = 630-4) No Result Data Provided [facility] HospitalBedside Aqqicah7176-81-81 11:54:00* Test Item Value Reference Range Interpretation Comments Bedside Glucose (test code = 72870-8) 126 70-120 H Meter ID: [id number] Scott & White [facility] Center – Centennialodium Level 2018-09-03 11:47:00* Test Item Value Reference Range Interpretation Comments Sodium Level (test code = 2951-2) 136 136-145 [facility] HospitalPotassium Kazqo6765-87-15 11:47:00* Test Item Value Reference Range Interpretation Comments Potassium Level (test code = 2823-3) 3.5 3.5-5.1 [facility] HospitalChloride Qprmc7214-54-90 11:47:00* Test Item Value Reference Range Interpretation Comments Chloride Level (test code = 2075-0) 107 98-107 [facility] HospitalCarbon Dioxide Xdqfy1634-72-03 11:47:00* Test Item Value Reference Range Interpretation Comments Carbon Dioxide Level (test code = 2028-9) 21 22-29 L [facility] HospitalAnion Anp4564-99-23 11:47:00* Test Item Value Reference Range Interpretation Comments Anion Gap (test code = 77971-3) 11.5 8-16 [facility] HospitalBlood Urea Pautmyuw9991-12-11 11:47:00* Test Item Value Reference Range Interpretation Comments Blood Urea Nitrogen (test code = 3094-0) 9 7-26 [facility] HospitalCreatinine2019-06-27 11:47:00* Test Item Value Reference Range Interpretation Comments Creatinine (test code = 2160-0) 0.91 0.72-1.25 [facility] HospitalBUN/Creatinine Usydr0962-12-93 11:47:00* Test Item Value Reference Range Interpretation Comments BUN/Creatinine Ratio (test code = 3097-3) 10 6-25 [facility] HospitalEstimat Glomerular Filtration Rate 2018-09-03 11:47:00* Test Item Value Reference Range Interpretation Comments Estimat Glomerular Filtration Rate (test code = 585092997) > 60 >60 Ranges were taken from the National Kidney Disease Education Program and the [facility] [employer] literature.Reference ranges:60 or greater: Tuhmef15-63 ( for 3 consecutive months): Chronic kidney disease 15 or less: Kidney failureFormerly [facility] HospitalGlucose Ynhzi2064-51-91 11:47:00* Test Item Value Reference Range Interpretation Comments Glucose Level (test code = DFK8104) 144 74-118 H [facility] HospitalCalcium Xlhuu8949-42-33 11:47:00* Test Item Value Reference Range Interpretation Comments Calcium Level (test code = 55309-6) 9.1 8.4-10.2 [facility] HospitalUrine Fduahdg5266-82-38 09:48:00* Test Item Value Reference Range Interpretation Comments Urine Culture (test code = 630-4) Organism: YEAST SPECIES [facility] HospitalCHEST 2 UECAN9312-25-54 06:05:00 [facility] [address] [place] [address] Patient Name: ZAYNAB SALMERON MR #: [id number] : 1965 Age/Sex: 53/M Req #: [id number] Adm Physician: LIVAN CASTANEDA MD Ordered by: LIVAN CASTANEDA MD Report #: [id number] Location: [facility] Room/Bed: [facility] Procedure: 02 DX/CHEST 2 VIEWS Exam [...] Interpretation Comments Blood Culture (test code = 13947812) NO GROWTH AFTER 24 HOURS [facility] Qjmjsrivq3764-20-99 05:50:00* Test Item Value Reference Range Interpretation Comments Total Bilirubin (test code = 1975-2) 1.7 0.2-1.2 H [facility] HospitalAspartate Amino Transf (AST/SGOT) 2018-09-02 05:50:00* Test Item Value Reference Range Interpretation Comments Aspartate Amino Transf (AST/SGOT) (test code = Aspartate Amino Transf (AST/SGOT)) 18 5-34 [facility] HospitalAlanine Aminotransferase (ALT/SGPT) 2018-09-02 05:50:00* Test Item Value Reference Range Interpretation Comments Alanine Aminotransferase (ALT/SGPT) (test code = 1742-6) 26 0-55 [facility] HospitalTotal Nwlftga6360-87-36 05:50:00* Test Item Value Reference Range Interpretation Comments Total Protein (test code = 2885-2) 6.8 6.5-8.1 [facility] HospitalAlbumin2019-06-26 05:50:00* Test Item Value Reference Range Interpretation Comments Albumin (test code = 1751-7) 3.5 3.5-5.0 [facility] HospitalGlobulin2019-06-26 05:50:00* Test Item Value Reference Range Interpretation Comments Globulin (test code = 46129-9) 3.3 2.3-3.5 [facility] HospitalAlbumin/Globulin Kgkal8218-21-39 05:50:00 * Test Item Value Reference Range Interpretation Comments Albumin/Globulin Ratio (test code = 1759-0) 1.1 0.8-2.0 [facility] HospitalAlkaline Rmlmhkplgxk9848-97-85 05:50:00* Test Item Value Reference Range Interpretation Comments Alkaline Phosphatase (test code = 6768-6) 76 40-150 [facility] HospitalWhite Blood Tolnc6755-92-58 05:36:00* Test Item Value Reference Range Interpretation Comments White Blood Count (test code = 6690-2) 13.57 4.8-10.8 H [facility] HospitalRed Blood Jyzkj6845-28-03 05:36:00* Test Item Value Reference Range Interpretation Comments Red Blood Count (test code = 789-8) 4.37 4.3-5.7 [facility] HospitalHemoglobin2019-06-26 05:36:00* Test Item Value Reference Range Interpretation Comments Hemoglobin (test code = 48327-6) 11.4 14.0-18.0 L [facility] HospitalHematocrit2019-06-26 05:36:00* Test Item Value Reference Range Interpretation Comments Hematocrit (test code = 4544-3) 35.2 38.2-49.6 L [facility] HospitalMean Corpuscular Ohqzni1015-68-95 05:36:00* Test Item Value Reference Range Interpretation Comments Mean Corpuscular Volume (test code = 787-2) 80.5 81-99 L [facility] HospitalMean Corpuscular Draeklwyou5786-24-00 05:36:00* Test Item Value Reference Range Interpretation Comments Mean Corpuscular Hemoglobin (test code = 785-6) 26.1 28-32 L [facility] HospitalMean Corpuscular Hemoglobin Concent 2018-09-02 05:36:00* Test Item Value Reference Range Interpretation Comments Mean Corpuscular Hemoglobin Concent (test code = 786-4) 32.4 31-35 [facility] HospitalRed Cell Distribution Wtjyi0563-77-22 05:36:00* Test Item Value Reference Range Interpretation Comments Red Cell Distribution Width (test code = 51006-6) 15.4 11.7 -14.4 H [facility] HospitalPlatelet Gwbkt4743-28-84 05:36:00* Test Item Value Reference Range Interpretation Comments Platelet Count (test code = 777-3) 244 140-360 [facility] HospitalNeutrophils (%) (Auto)2018-09-02 05:36:00 * Test Item Value Reference Range Interpretation Comments Neutrophils (%) (Auto) (test code = 85634-3) 67.5 38.7-80.0 [facility] HospitalLymphocytes (%) (Auto)2018-09-02 05:36:00 * Test Item Value Reference Range Interpretation Comments Lymphocytes (%) (Auto) (test code = 736-9) 19.0 18.0-39.1 [facility] (%) (Auto)2018-09-02 05:36:00* Test Item Value Reference Range Interpretation Comments Monocytes (%) (Auto) (test code = 5905-5) 10.2 4.4-11.3 [facility] HospitalEosinophils (%) (Auto)2018-09-02 05:36:00 * Test Item Value Reference Range Interpretation Comments Eosinophils (%) (Auto) (test code = 713-8) 2.5 0.0-6.0 [facility] HospitalBasophils (%) (Auto)2018-09-02 05:36:00* Test Item Value Reference Range Interpretation Comments Basophils (%) (Auto) (test code = 706-2) 0.4 0.0-1.0 [facility] HospitalIM GRANULOCYTES %2018-09-02 05:36:00* Test Item Value Reference Range Interpretation Comments IM GRANULOCYTES % (test code = IM GRANULOCYTES %) 0.4 0.0- 1.0 [facility] HospitalNeutrophils # (Auto)2018-09-02 05:36:00* Test Item Value Reference Range Interpretation Comments Neutrophils # (Auto) (test code = 751-8) 9.2 2.1-6.9 H [facility] HospitalLymphocytes # (Auto)2018-09-02 05:36:00* Test Item Value Reference Range Interpretation Comments Lymphocytes # (Auto) (test code = 26639-7) 2.6 1.0-3.2 [facility] HospitalMonocytes # (Auto)2018-09-02 05:36:00* Test Item Value Reference Range Interpretation Comments Monocytes # (Auto) (test code = 742-7) 1.4 0.2-0.8 H [facility] HospitalEosinophils # (Auto)2018-09-02 05:36:00* Test Item Value Reference Range Interpretation Comments Eosinophils # (Auto) (test code = 711-2) 0.3 0.0-0.4 [facility] HospitalBasophils # (Auto)2018-09-02 05:36:00* Test Item Value Reference Range Interpretation Comments Basophils # (Auto) (test code = 704-7) 0.1 0.0-0.1 [facility] HospitalAbsolute Immature Granulocyte (auto 2018-09-02 05:36:00* Test Item Value Reference Range Interpretation Comments Absolute Immature Granulocyte (auto (chel t code = Absolute Immature Granulocyte (auto) 0.06 0-0.1 [facility] HospitalLactic Acid Lzhnf4245-81-88 01:40:00* Test Item Value Reference Range Interpretation Comments Lactic Acid Level (test code = Lactic Acid Level) 19.0 4.5- 19.8 [facility] HospitalLactic Acid Uymua3697-87-20 01:40:00* Test Item Value Reference Range Interpretation Comments Lactic Acid Level (test code = Lactic Acid Level) 19.0 4.5- 19.8 [facility] HospitalLactic Acid Wprsl4171-50-48 01:40:00* Test Item Value Reference Range Interpretation Comments Lactic Acid Level (test code = Lactic Acid Level) 19.0 4.5- 19.8 [facility] HospitalLactic Acid Ltfvo8182-60-07 01:40:00* Test Item Value Reference Range Interpretation Comments Lactic Acid Level (test code = Lactic Acid Level) 19.0 4.5- 19.8 [facility] HospitalCHEST SINGLE (PORTABLE)2018-09-01 21:42:00 [facility] [address] [address] Patient Name: ZAYNAB SALMERON MR #: [id number] : 1965 Age/Sex: 53/M Req #: [id number] Adm Physician: Ordered by: PRIYA HUYNH MD Report #: [id number] Location: ER Room/Bed: Procedure: [id number] DX/CHEST [...] 09/01/182145 COPY TO: NITHYA HUYNH MD Urine THP1707-08-98 21:38:00* Test Item Value Reference Range Interpretation Comments Urine WBC (test code = 5821-4) >50 0-5 [facility] LOB2042-12-10 21:38:00* Test Item Value Reference Range Interpretation Comments Urine RBC (test code = 00361-3) >50 0-5 H [facility] CenterU[facility] Subawtkm6885-06-86 21:38:00* Test Item Value Reference Range Interpretation Comments Urine Bacteria (test code = 44875-3) MANY NONE H [facility] HospitalUrine Epithelial Xlefe7154-59-85 21:38:00 * Test Item Value Reference Range Interpretation Comments Urine Epithelial Cells (test code = 29472-6) MODERATE NONE [facility] HospitalUrine Sziei1138-64-91 21:19:00* Test Item Value Reference Range Interpretation Comments Urine Color (test code = 5778-6) YELLOW YELLOW [facility] HospitalUrine Lvgrrwf8494-89-29 21:19:00* Test Item Value Reference Range Interpretation Comments Urine Clarity (test code = 34633-2) CLOUDY CLEAR H [facility] HospitalUrine Specific Kdpjnvr9209-75-77 21:19:00 * Test Item Value Reference Range Interpretation Comments Urine Specific [place] (test code = 5811-5) 1.025 1.010-1.02 5 [facility] HospitalUrine vL8209-27-15 21:19:00* Test Item Value Reference Range Interpretation Comments Urine pH (test code = 21677-3) 6 5-7 [facility] HospitalUrine Leukocyte Jyrqpyuc1622-50-45 21:19:00* Test Item Value Reference Range Interpretation Comments Urine Leukocyte Esterase (test code = 50986-1) SMALL NEGATIV E [facility] HospitalUrine Gmxklvu0023-08-74 21:19:00* Test Item Value Reference Range Interpretation Comments Urine Nitrite (test code = 74658-3) NEGATIVE NEGATIVE [facility] HospitalUrine Mfufguo1280-10-74 21:19:00* Test Item Value Reference Range Interpretation Comments Urine Protein (test code = 09314-5) 2+ NEGATIVE H [facility] HospitalUrine Glucose (UA)2018-09-01 21:19:00* Test Item Value Reference Range Interpretation Comments Urine Glucose (UA) (test code = 24568-3) 3+ NEGATIVE [facility] HospitalUrine Chlpufb4677-33-20 21:19:00* Test Item Value Reference Range Interpretation Comments Urine Ketones (test code = 75503-6) NEGATIVE NEGATIVE [facility] HospitalUrine Hyyelyvzwcgu1574-07-55 21:19:00* Test Item Value Reference Range Interpretation Comments Urine Urobilinogen (test code = 49309-6) 0.2 0.2-1 [facility] HospitalUrine Nkxnurqtv6515-34-49 21:19:00* Test Item Value Reference Range Interpretation Comments Urine Bilirubin (test code = 1977-8) NEGATIVE NEGATIVE [facility] HospitalUrine Srujy8283-71-46 21:19:00* Test Item Value Reference Range Interpretation Comments Urine Blood (test code = 36505-3) 3+ NEGATIVE [facility] HospitalNEPHROSTOMY CATHETER XZZXYFHJ1154-61-53 12:48:00 [facility] [address] [place] [address] Patient Name: ZAYNAB SALMERON MR #: [id number] : 1965 Age/Sex: 53/M Req #: [id number] Adm Physician: Ordered by: CARLOS COX MD Report #: [id number] Location: OR Room/Bed: Procedure: DX/NEPHROSTOMY CATHETER EXCHANGE Exam Date: Exam T [...] over a 0.035 " J-wire. A 5 Mongolian Kumpe catheter was then advanced over the wire and utilizing a 0.035" hydrophilic Glidewire the wire and cathet er was advanced into the bladder. An Amplatz 0.035 " superstiff wire was advan elysia into the bladder through the Kumpe catheter for firm control. A 10.2 Mongolian 26 cm long nephroureteral stent was then [...] 1:02 PM Dictated By: LIV JOHNSTON DO 162 Transcribed By: MICHEAL on 09/09/18 1620 COPY TO: CARLOS COX MD SPECIAL PROCEDURE IN CATH JXJ0702-04-22 12:48:[address] [address] Patient Name: ZAYNAB SALMERON MR #: [id number] : 1965 Age/Sex: 53/M Req #: [id number] Adm Physician: Ordered by: CARLOS COX MD Report #: [id number] Location: OR Room/Bed: Procedure: [id number] IR/SPECIAL PROCEDURE IN OPTIC FIBRE DRAWER Exam Date: Exam T rudy: REPORT STATUS: [...] over a 0.035 " J-wire. A 5 Mongolian Kumpe catheter was then advanced over the wire and utilizing a 0.035" hydrophilic Glidewire the wire and cathet er was advanced into the bladder. An Amplatz 0.035 " superstiff wire was advan elysia into the bladder through the Kumpe catheter for firm control. A 10.2 Mongolian 26 cm long nephroureteral stent was then [...] JOHNSTON DO 19 Transcribed By: MICHEAL on 09/09/18 1620 COPY TO: CARLOS COX MD - NEPH CATH PMDQKKAC3524-34-54 16:18:00 Name: ZAYNAB SALMERON [facility] : 1965 Age/S: 53 / M [address] [facility] Unit #: [id number] Loc: [place] [address] Phys: Jose Berger MD Acct: [id number] Di s Date: Status: DEP [facility] PHONE #: [phone] Exam Date: 08/12/2018 1051 FAX #: [phone] Reason: EXAMS: CPT CODE: [id number] NEPH CATH EXCHA NGE 15836 Fluoro Time: 72 DAP (Gy m2 ): [...] pulse oximetry were continuously monitored by a [facility] registered nurse. Physician oido-yk-zrkc sedation time was 11 minut . After [...] and was replaced with a new 12 Mongolian pigtail nephrostomy tube. This tube was coiled within the renal pelvis, was sutured to the skin and connected to a drainage bag. No complications. IMPRESSION: 1. Successful replacement of a right-sided nephrostomy tube using fluorosco pic guidance. 2. Nonobstructing stone within a lower calyx. This stone i s not in contact with the nephrostomy tube, which is positioned more pig machine crane operator nially and with its tip in the renal pelvis. 3. Decompressed, no ndilated right renal collecting system and unremarkable right ureter. Fluoroscopy Time: 72 sec CAK : 21 mGy DAP : 3. 85 mGy sq cm PAGE 1 Signed Report (CONTINUED) Name: ZAYNAB SALMERON [facility] : 1965 Age/S: 53 / M [address] [facility] Unit #: [id number] Loc: [place] [address] Phys: Rob Berger MD Acct: [id number] Dis Date: Status: [facility] PHONE #: [phone] Exam Date: 08/12/2018 1051 FAX #: [phone] Reason: EXAMS: CPT CODE: [id number] NEPH CATH EXCHANGE 49741 Fluoro Time: 72 DAP (Gy m2): 3.85 Air Kerma (mGy): 21 <Continued> at 1618 Reported and signed by: Rob Berger M.D. CC: Faina Guerrero DO; George Choudhary MD Technologist: JIMBO VALVERDE RT(R) Trnscb Date/Time: 08/17/2018 (161) tSUZANNEGRW Orig Print D/T: S: 08/17/2018 (1629) PAGE 2 Signed Report ABDOMEN-1VIEW (KUB)2018-08-13 15:38:00 [address] [address] Patient Name: ZAYNAB SALMERON MR #: [id number] : 1965 Age/Sex: 53/M Req #: [id number] Adm Physician: Ordered by: CARLOS COX MD Report #: [id number] Location: OR Room/Bed: Procedure: [id number] DX/ ABDOMEN-1VIEW (KUB) Exam Date: 08/13/18 Exam [...] 122 mg/dL 74-106 H Performed by certified extractor machine operator at [facility] PROTHROMBIN HKRR8905-75-28 15:27:00* Test Item Value Reference Range Interpretation [...] Mechanical prosthetic heart valves (2.5-3.5) THROMBOPLASTIN TIME CEFUCEC6557-47-47 15:27:00* Test Item Value Reference Range Interpretation Comments THROMBOPLASTIN TIME PARTIAL (test code = PTT) 32.2 seconds 25.0-36. 5 N CBC W/AUTO RXOP0068-00-38 15:19:00* Test Item Value Reference Range Interpretation [...] REQUIRED (test code = MDIFF) NO CHEM LENYT9369-55-53 22:43:0070[facility]annCHEM YIAKH3956-80-43 22:43:0016 [facility] HermannCHEM WCQBH2320-49-85 22:43:001.16[facility] HermannCHEM PANEL 2018-03-13 22:43:65752Pddpiskt HermannCHEM AZWZC4953-53-24 22:43:77747Byfekkgc HermannCHEM EYCYF0775-83-22 22:43:003.8[facility] HermannCHEM HOEKB8187-07-96 22:43:009.0[facility] HermannCHEM BBALW5179-69-45 22:43:0030[facility] HermannCHEM TDWOC6168-74-77 22:43:45114Sizsibef HermannCHEM DEIIU9048-60-36 22:43:009.8 [facility] HvueeqgHLTMORTBPD5244-15-56 22:43:008.3[facility] HermannHEMATOLOGY 2018-03-13 22:43:0059.7[facility] BpvbauyRNWVQRLMLC0252-70-36 22:43:0028.6[facility] HhbuacgJUJUIZFYLY0825-32-62 22:43:002.9[facility] JcaphekVLJWNVZCGL1806-51-78 22:43:000.7[facility] GdyjlruDQGWSNCJQZ5150-58-44 22:43:000.3[facility] NHLWFNNLQE3764-93-70 22:43:000.5[facility] NganugrPSNJCMQAXN2228-77-11 22:43:005.3 Memorial WyxqwczKQRTNKKTJJ5028-62-14 22:43:002.6[facility] HermannHEMATOLOGY 2018-03-13 22:43:95200Qzzuubnv SullynnYKRWIEHXQS0697-10-99 22:43:0015.1[facility]orial PzgihiwBNDIKRMBAE3180-99-80 22:43:008.8[facility] AhrojfoMDFVKQKJUC4668-52-39 22:43:0014.3[facility]orial VkawbvgAQYCPXNOJT8701-03-06 22:43:008.9[facility] ZLQXXAOTJJ1718-02-91 22:43:005.11[facility] YfveyrkVRGUXFLWWU9961-21-01 22:43:00 43.2Memorial SozmifzUQWQKZDKEJ0312-85-74 22:43:0033.1[facility] HermannHEMATOLOGY 2018-03-13 22:43:00* Test Item Value Reference Range Interpretation Comments MCH (test code = MCH) 28.0 pg 27.0-31.0 [facility] EfcdeykFDIGUWWGAY5029-84-68 22:43:0084.6[facility] HermannSPECIAL NTWTVLFJH9154-93-79 22:43:007.8[facility] HermannABDOMEN-1VIEW (KUB)2018-01-06 09:00:00 [address] [address] Patient Name: ZAYNAB SALMERON MR #: [id number] : 1965 Age/Sex: 52/M Req #: [id number] Adm Physician: Ordered by: CARLOS COX MD Report #: [id number] Location: OR Room/Bed: Procedure: [id number] DX/ ABDOMEN-1VIEW (KUB) Exam Date: 01/06/18 Exam [...] 01/06/18902 COPY TO: CARLOS COX MD Bedside Qzarfat5611-96-19 07:49:00* Test Item Value Reference Range Interpretation Comments Bedside Glucose (test code = 87238-7) 161 70-120 H Meter ID: [id number] [facility] HospitalBlood Urea Nitrogen 2018-01-05 10:36:00* Test Item Value Reference Range Interpretation Comments Blood Urea Nitrogen (test code = 3094-0) 18 - [facility] HospitalBUN/Creatinine Wfbab1951-41-03 10:36:00* Test Item Value Reference Range Interpretation Comments BUN/Creatinine Ratio (test code = 3097-3) 17 - [facility]ennialodium Jksaw0096-93-81 10:23:00* Test Item Value Reference Range Interpretation Comments Sodium Level (test code = 2951-2) 141 136-145 [facility] HospitalPotassium Bxoaj3474-26-15 10:23:00* Test Item Value Reference Range Interpretation Comments Potassium Level (test code = 2823-3) 3.6 3.5-5.1 [facility] HospitalChloride Lfdyu6818-08-10 10:23:00* Test Item Value Reference Range Interpretation Comments Chloride Level (test code = 2075-0) 107 98-107 [facility] HospitalCarbon Dioxide Yqolz1231-85-65 10:23:00* Test Item Value Reference Range Interpretation Comments Carbon Dioxide Level (test code = 2028-9) 24 22-29 [facility] HospitalAnion Wfs5610-04-66 10:23:00* Test Item Value Reference Range Interpretation Comments Anion Gap (test code = 79432-9) 13.6 8-16 [facility] HospitalCreatinine2018-10-29 10:23:00* Test Item Value Reference Range Interpretation Comments Creatinine (test code = 2160-0) 1.04 0.72-1.25 [facility] HospitalEstimat Glomerular Filtration Rate 2018-01-05 10:23:00* Test Item Value Reference Range Interpretation Comments Estimat Glomerular Filtration Rate (test code = 307892801) > 60 >60 Ranges were taken from the National Kidney Disease Education Program and the [facility] literature.Reference ranges:60 or greater: Mvzwdl40-08 ( for 3 consecutive months): Chronic kidney disease 15 or less: Kidney failureFormerly [facility] HospitalGlucose Vzpob4004-82-14 10:23:00* Test Item Value Reference Range Interpretation Comments Glucose Level (test code = WFZ2564) 154 74-118 H [facility] HospitalCalcium Tuipa6745-90-79 10:23:00* Test Item Value Reference Range Interpretation Comments Calcium Level (test code = 47179-9) 9.5 8.4-10.2 [facility] HospitalABDOMEN-1VIEW (KUB)2017-09-26 12:30:00 [place] [address] Patient Name: ZAYNAB SALMERON MR #: [id number] : 1 04/03/1964 Age/Sex: 52/M Req #: [id number] Adm Physician: Ordered by: CARLOS COX MD Report #: [id number] Location: [facility]/ d: Procedure: [id number] DX/ABDOMEN-1VIEW (KUB) Exam Date: 09/26/17 Exam Time: [...] renal stones, otherwise unchanged. Dictated by: Alexia Rose M.D. on 09/26/2017 at 12:30 Electronically approved by: Alexia Rose M.D. on 09/26/2017 at 12:30 Dictated By: Shara ROSE MD 12 30 Transcribed By: LOUISA on 09/26/17 1350 COPY TO: CARLOS COX MD ABDOMEN-1VIEW (KUB)2017-09-02 06:32:[address] [place], [place] [address] Patient Name: ZAYNAB SALMERON MR #: [id number] : 1965 Age/Sex: 52/M Req #: [id number] Adm Physician: Ordered by: CARLOS COX MD Report #: [id number] Location: OR Room/Bed: Procedure: [id number] DX/ABDOMEN-1VIEW (KUB) Exam D ate: Exam Time: [...] 09/02/17635 COPY TO: CARLOS COX MD Bedside Ytsutel6923-70-07 12:01:00* Test Item Value Reference Range Interpretation Comments Bedside Glucose (test code = 85966-0) 172 70-120 H Meter ID: [id number] Scott & White Medical Center – Centennialodium Level 2017-07-09 07:18:00* Test Item Value Reference Range Interpretation Comments Sodium Level (test code = 2951-2) 139 136-145 [facility] HospitalPotassium Aepef1087-56-60 07:18:00* Test Item Value Reference Range Interpretation Comments Potassium Level (test code = 2823-3) 3.7 3.5-5.1 [facility] HospitalChloride Afpvs5100-73-73 07:18:00* Test Item Value Reference Range Interpretation Comments Chloride Level (test code = 2075-0) 108 98-107 H [facility] HospitalCarbon Dioxide Drtyw5258-44-89 07:18:00* Test Item Value Reference Range Interpretation Comments Carbon Dioxide Level (test code = 2028-9) 22 22-29 [facility] HospitalAnion Lrx5682-43-64 07:18:00* Test Item Value Reference Range Interpretation Comments Anion Gap (test code = 23244-2) 12.7 8-16 [facility] HospitalBlood Urea Ovskittn7724-18-89 07:18:00* Test Item Value Reference Range Interpretation Comments Blood Urea Nitrogen (test code = 3094-0) 18 7-26 [facility] HospitalCreatinine2018-05-02 07:18:00* Test Item Value Reference Range Interpretation Comments Creatinine (test code = 2160-0) 1.46 0.72-1.25 H [facility] HospitalBUN/Creatinine Jshsf0534-26-96 07:18:00* Test Item Value Reference Range Interpretation Comments BUN/Creatinine Ratio (test code = 3097-3) 12 6- [facility] HospitalEstimat Glomerular Filtration Rate 2017-07-09 07:18:00* Test Item Value Reference Range Interpretation Comments Estimat Glomerular Filtration Rate (test code = 93198-1) 50 >60 L Ranges were taken from the National Kidney Disease Education Program and the [facility] Kid[facility] Foundation literature.Reference ranges:60 or greater: Zzerww13-02 ( for 3 consecutive months): Chronic kidney disease 15 or less: Kidney failureFormerly [facility] HospitalGlucose Usmbg8157-32-00 07:18:00* Test Item Value Reference Range Interpretation Comments Glucose Level (test code = PDM0126) 142 74-118 H [facility] HospitalCalcium Fbhun6005-30-58 07:18:00* Test Item Value Reference Range Interpretation Comments Calcium Level (test code = 78139-8) 8.5 8.4-10.2 [facility] HospitalTotal Eybihhnos3364-23-25 07:18:00* Test Item Value Reference Range Interpretation Comments Total Bilirubin (test code = 1975-2) 1.4 0.2-1.2 H [facility] HospitalAspartate Amino Transf (AST/SGOT) 2017-07-09 07:18:00* Test Item Value Reference Range Interpretation Comments Aspartate Amino Transf (AST/SGOT) (test code = Aspartate Amino Transf (AST/SGOT)) 19 5-34 [facility] HospitalAlanine Aminotransferase (ALT/SGPT) 2017-07-09 07:18:00* Test Item Value Reference Range Interpretation Comments Alanine Aminotransferase (ALT/SGPT) (test code = 1742-6) 23 0-55 [facility] HospitalTotal Ddtxnaa8464-36-49 07:18:00* Test Item Value Reference Range Interpretation Comments Total Protein (test code = 2885-2) 6.4 6.5-8.1 L [facility] HospitalAlbumin2018-05-02 07:18:00* Test Item Value Reference Range Interpretation Comments Albumin (test code = 1751-7) 3.3 3.5-5.0 L [facility] HospitalGlobulin2018-05-02 07:18:00* Test Item Value Reference Range Interpretation Comments Globulin (test code = 46218-7) 3.1 2.3-3.5 [facility] HospitalAlbumin/Globulin Pjnbk3165-00-90 07:18:00 * Test Item Value Reference Range Interpretation Comments Albumin/Globulin Ratio (test code = 1759-0) 1.1 0.8-2.0 [facility] HospitalAlkaline Wyjokkkcday2339-35-10 07:18:00* Test Item Value Reference Range Interpretation Comments Alkaline Phosphatase (test code = 6768-6) 65 40-150 [facility] HospitalWhite Blood Sdkbc1624-00-40 06:46:00* Test Item Value Reference Range Interpretation Comments White Blood Count (test code = 6690-2) 7.47 4.8-10.8 [facility] HospitalRed Blood Jktxt4412-94-40 06:46:00* Test Item Value Reference Range Interpretation Comments Red Blood Count (test code = 789-8) 4.51 4.3-5.7 [facility] HospitalHemoglobin2018-05-02 06:46:00* Test Item Value Reference Range Interpretation Comments Hemoglobin (test code = 75127-0) 12.5 14.0-18.0 L [facility] HospitalHematocrit2018-05-02 06:46:00* Test Item Value Reference Range Interpretation Comments Hematocrit (test code = 4544-3) 38.4 38.2-49.6 [facility] HospitalMean Corpuscular Xehqch5127-83-54 06:46:00* Test Item Value Reference Range Interpretation Comments Mean Corpuscular Volume (test code = 787-2) 85.1 81-99 [facility] HospitalMean Corpuscular Juvedpsnoe6618-90-65 06:46:00* Test Item Value Reference Range Interpretation Comments Mean Corpuscular Hemoglobin (test code = 785-6) 27.7 28-32 L [facility] HospitalMean Corpuscular Hemoglobin Concent 2017-07-09 06:46:00* Test Item Value Reference Range Interpretation Comments Mean Corpuscular Hemoglobin Concent (test code = 786-4) 32.6 31-35 [facility] HospitalRed Cell Distribution Zssqf3822-56-62 06:46:00* Test Item Value Reference Range Interpretation Comments Red Cell Distribution Width (test code = 53944-6) 15.0 11.7 -14.4 H [facility] HospitalPlatelet Ruofo4305-18-83 06:46:00* Test Item Value Reference Range Interpretation Comments Platelet Count (test code = 777-3) 192 140-360 [facility] HospitalNeutrophils (%) (Auto)2017-07-09 06:46:00 * Test Item Value Reference Range Interpretation Comments Neutrophils (%) (Auto) (test code = 04207-2) 73.5 38.7-80.0 [facility] HospitalLymphocytes (%) (Auto)2017-07-09 06:46:00 * Test Item Value Reference Range Interpretation Comments Lymphocytes (%) (Auto) (test code = 736-9) 11.8 18.0-39.1 L [facility] HospitalMonocytes (%) (Auto)2017-07-09 06:46:00* Test Item Value Reference Range Interpretation Comments Monocytes (%) (Auto) (test code = 5905-5) 12.0 4.4-11.3 H [facility] HospitalEosinophils (%) (Auto)2017-07-09 06:46:00 * Test Item Value Reference Range Interpretation Comments Eosinophils (%) (Auto) (test code = 713-8) 2.3 0.0-6.0 [facility] HospitalBasophils (%) (Auto)2017-07-09 06:46:00* Test Item Value Reference Range Interpretation Comments Basophils (%) (Auto) (test code = 706-2) 0.1 0.0-1.0 [facility] HospitalIM GRANULOCYTES %2017-07-09 06:46:00* Test Item Value Reference Range Interpretation Comments IM GRANULOCYTES % (test code = IM GRANULOCYTES %) 0.3 0.0- 1.0 [facility] HospitalNeutrophils # (Auto)2017-07-09 06:46:00* Test Item Value Reference Range Interpretation Comments Neutrophils # (Auto) (test code = 751-8) 5.5 2.1-6.9 [facility] HospitalLymphocytes # (Auto)2017-07-09 06:46:00* Test Item Value Reference Range Interpretation Comments Lymphocytes # (Auto) (test code = 18405-9) 0.9 1.0-3.2 L [facility] HospitalMonocytes # (Auto)2017-07-09 06:46:00* Test Item Value Reference Range Interpretation Comments Monocytes # (Auto) (test code = 742-7) 0.9 0.2-0.8 H [facility] HospitalEosinophils # (Auto)2017-07-09 06:46:00* Test Item Value Reference Range Interpretation Comments Eosinophils # (Auto) (test code = 711-2) 0.2 0.0-0.4 [facility] HospitalBasophils # (Auto)2017-07-09 06:46:00* Test Item Value Reference Range Interpretation Comments Basophils # (Auto) (test code = 704-7) 0.0 0.0-0.1 [facility] HospitalAbsolute Immature Granulocyte (auto 2017-07-09 06:46:00* Test Item Value Reference Range Interpretation Comments Absolute Immature Granulocyte (auto (chel t code = Absolute Immature Granulocyte (auto) 0.02 0-0.1 [facility]th[facility]bin Zyht5635-44-27 06:58:00* Test Item Value Reference Range Interpretation Comments Prothrombin Time (test code = 5902-2) 13.1 11.9-14.5 [facility]Prothromb Time International Ratio 2017-07-08 06:58:00* Test Item Value Reference Range Interpretation Comments Prothromb Time International Ratio (test code = 6301-6) 1.07 Oral Anticoagulant Therapy INR Values:1. Low Intensity Therapy 1.5 - 2.02 . Moderate Intensity Therapy 2.0 - 3.03. High Intensity Therapy(1) 2.5 - 3. 54. High Intensity Therapy(2) 3.0 - 4.05. Panic Value INR > 5.0 [facility] HospitalActivated Partial Thromboplast Time 2017-07-08 06:58:00* Test Item Value Reference Range Interpretation Comments Activated Partial Thromboplast Time (test code = 25922-0) 31.3 23.8-35.5 [facility] HospitalAmylase Mzshd1042-54-43 06:57:00* Test Item Value Reference Range Interpretation Comments Amylase Level (test code = 1798-8) 29 25-125 [facility] HospitalLipase2018-05-01 06:57:00* Test Item Value Reference Range Interpretation Comments Lipase (test code = 3040-3) 72 8-78 [facility] [id number] 05:43:00* Test Item Value Reference Range Interpretation Comments Urine WBC (test code = 5821-4) 6-10 0-5 H [facility] BEI1120-91-18 05:43:00* Test Item Value Reference Range Interpretation Comments Urine RBC (test code = 81080-8) 21-50 0-5 H [facility] Ptnvfiek9228-28-76 05:43:00* Test Item Value Reference Range Interpretation Comments Urine Bacteria (test code = 29310-2) RARE NONE [facility] Epithelial Znpsa3131-18-33 05:43:00 * Test Item Value Reference Range Interpretation Comments Urine Epithelial Cells (test code = 36099-0) RARE NONE [facility] Zjqbb7599-33-46 05:24:00* Test Item Value Reference Range Interpretation Comments Urine Color (test code = 5778-6) YELLOW YELLOW [facility] Dzdpfcx9064-94-25 05:24:00* Test Item Value Reference Range Interpretation Comments Urine Clarity (test code = 37068-2) CLEAR CLEAR [facility] Specific Ylwzszx7327-62-22 05:24:00 * Test Item Value Reference Range Interpretation Comments Urine Specific [place] (test code = 5811-5) 1.025 1.010-1.02 5 [facility] oJ7290-10-41 05:24:00* Test Item Value Reference Range Interpretation Comments Urine pH (test code = 25868-4) 5 5-7 [facility] Leukocyte Eldgpeyx0983-25-94 05:24:00* Test Item Value Reference Range Interpretation Comments Urine Leukocyte Esterase (test code = 5799-2) NEGATIVE NEGATIVE [facility] Vuyrvcv9528-27-06 05:24:00* Test Item Value Reference Range Interpretation Comments Urine Nitrite (test code = 34326-3) NEGATIVE NEGATIVE [facility] Bbnawrw1500-12-07 05:24:00* Test Item Value Reference Range Interpretation Comments Urine Protein (test code = 5804-0) 1+ NEGATIVE H [facility] Glucose (UA)2017-07-08 05:24:00* Test Item Value Reference Range Interpretation Comments Urine Glucose (UA) (test code = 2349-9) 2+ NEGATIVE H [facility] Ayvkhdl5678-87-68 05:24:00* Test Item Value Reference Range Interpretation Comments Urine Ketones (test code = 25361-3) NEGATIVE NEGATIVE [facility] Nomqrjcrkvgg5915-08-54 05:24:00* Test Item Value Reference Range Interpretation Comments Urine Urobilinogen (test code = 81013-8) 0.2 0.2-1 [facility] Oymubnhoo7899-39-19 05:24:00* Test Item Value Reference Range Interpretation Comments Urine Bilirubin (test code = 1978-6) NEGATIVE NEGATIVE [facility] Hfyko5202-40-53 05:24:00* Test Item Value Reference Range Interpretation Comments Urine Blood (test code = 97137-3) 2+ NEGATIVE H [facility] HospitalURINALYSIS2013-10-02 18:30:00>182[facility] RywdlqsXMYUSRHGOL5596-89-19 18:30:00Occasional /LPF *NA*(12/09/2012 13:30:00) [facility] SpvyewzVBHSWTUQGY4799-23-82 18:30:009[facility]annURINALYSIS 2012-12-09 18:30:00Clear (12/09/2012 13:30:00) [facility] HermannURINALYSIS 2012-12-09 18:30:00Negative mg/dL (12/09/2012 13:30:00) [facility] AZSFVRSLIT0691-40-76 18:30:005.0[facility] VdmhehwTOKIAMUXVV1883-63-90 18:30:00 1.015[facility] AzfxoivXXMAYJGGFF5386-89-78 18:30:00Large *ABN*(12/09/2012 13:30:00) [facility] QxyjkkjVUBEQRAOHR2558-94-39 18:30:002.0[facility] ABSFULQBSZ0931-16-00 18:30:00Positive *ABN*(12/09/2012 13:30:00) [facility] EfgcmzzAKZEEAZTUP9063-48-06 18:30:00Negative (12/09/2012 13:30:00) [facility] ChgkptzIMZTMJXZRZ1739-86-62 18:30:00Negative mg/dL *NA*(12/09/2012 13:30:00) [facility] UnpfscfDVOOGPAJQZ1117-41-43 18:30:00Negative mg/dL *NA*(12/09/2012 13:30:00) [facility] BwfbtugESSXAUFDQO2165-10-25 18:30:00Negative *NA*(12/09/2012 13:30:00) [facility] GibpmbqKHYAJQZHR6004-71-20 15:20:0078[facility] SUNJLVWIN4547-22-49 15:20:0029[facility] UsorlrxZWVXDYJKY5448-54-69 15:20:001.1 [facility] QfwkakwTMEQGKEKK6951-33-21 15:20:07408Nffjiwyu HermannCHEMISTRY 2012-12-04 15:20:0015[facility] UrtoyojBKIFANLUA2811-84-93 15:20:008.7[facility] XvspwuyZICTBDCMC7602-00-89 15:20:003.9[facility] XdwqmtwBMGYOBNWD0945-78-12 15:20:16743Bvnjfmcr FqfkvblBAJSYLUFB5994-46-63 15:20:47343Kpxnblur Stone MEZXVXYKV3355-64-38 15:20:0011.9[facility] VtusrtuQQRCHQTTLM3802-72-47 15:20:00 11.7[facility] OexarvsGPNUJMJHVS2689-64-71 15:20:0083.6[facility] HermannHEMATOLOGY 2012-12-04 15:20:0036.1[facility] WmdsgnoIANFMHMBMB7810-70-58 15:20:0014.2[facility] YqdxabuLZICXDKWMO0818-17-43 15:20:19707Atkwjcdq MrwxeacWLRQEAEDVK5888-63-39 15:20:008.7[facility] AsalhakWEXFCRJIBJ5160-02-71 15:20:004.32[facility] UKGOCLNAAS7237-20-54 15:20:0032.3[facility] GvshsjoRDHCQQNIFP2323-52-38 15:20:00* Test Item Value Reference Range Interpretation Comments MCH (test code = MCH) 27.0 pg 27.0-31.0 N [facility] NrvlwiaXOPPSRXDHD2222-66-64 15:20:007.0[facility] HermannHEMATOLOGY 2012-12-04 15:20:005.0[facility] DxqblwdJRTCVHQFJR7852-55-15 15:20:000.2[facility] UhizytsYWYEYMMLTS1119-57-67 15:20:000.1[facility] YkqifcxOHQKDIYFFG1833-67-80 15:20:000.6[facility] VkmhzupYICCDSSKRN8667-36-09 15:20:001.2[facility] [place] KGKMMKBOMU8764-06-13 15:20:0072.1[facility] RcklyzqOEUXQRFQXP8671-54-77 15:20:00 2.1[facility] WpqsutuGDXJMMUKIY0980-40-81 15:20:008.7[facility] HermannHEMATOLOGY 2012-12-04 15:20:0016.9[facility] DvsprcgTIYLVUOTWA2449-78-58 15:20:000.0[facility] MbnjechUUGXIDUAZU9505-57-88 15:20:00* Test Item Value Reference Range Interpretation Comments PTT (test code = PTT) 30.0 s 22.9-35.8 N [facility] PcbqxthTCCQRLTCPI8808-37-80 15:20:00* Test Item Value Reference Range Interpretation Comments PT (test code = PT) 12.8 s 12.0-14.7 N [facility] DjqggzmNIVRKAGBKO7424-36-98 15:20:000.97[facility]annABDOMEN-1VIEW ([facility] [address], [place] [address] Patient Name: ZAYNAB SALMERON MR #: [id number] : 1965 Age/Sex: 52/M Req #: [id number] Adm Physician: GISELA CARABALLO MD Ordered by: AKOSUA LAMAR MD Report #: [id number] Location: [facility] Room/Bed: [place] [address] Procedure: [id number] DX/A BDOMEN-1VIEW (KUB) Exam Date: 07/09/17 Exam Time: 16 50 REPORT STATUS: Signed PROCEDURE: X-RAY ABDOMEN - KUB COMPARI SON: [facility], CT, CT ABDOMEN AND PELVIS WITHOUT CONTRAST, [...] TO: AKOSUA LAMAR MD CT ABDOMEN/PELVIS WO [place] [address] Patient Name: ZAYNAB SALMERON MR #: [id number] : 1965 Age/Sex: 52/M Req #: [id number] Adm Physician: Ordered by: TRE SALAS MD Report #: [id number] Location: ER Room/Bed: Procedure: [id number] CT/CT ABDOMEN/PELVIS WO Ex am Date: Exam [...]
[2019-11-04] MEDS ORDERED: CEFTRIAXONE SOD 1 GM/NS 50 ML 50 ML IV ONE (08:30)
[2019-11-04] MEDS ORDERED: LEVOFLOXACIN 500MG/D5W 100ML 100 ML IV STA (08:33)
[2019-11-04] MEDS ORDERED: ONDANSETRON HCL INJ 2MG/ML 2ML 2 MG/ML VIAL IV STA (08:41)
[2019-11-04] MEDS ORDERED: MORPHINE SULFATE INJ 4 MG/ML INJ 1ML IV PRN ×2 (08:45→10:30)
--- NOTE | 2019-11-04 09:04 | Emergency Department Note ---
History of Present Illnes History of Present Illness Chief Complaint: Genitourinary History of Present Illness This is a 54 year old male arrives to the ED with complaints of fever and chills despite being on antibiotics for UTI. Patient states temp is going as high as 103, he is compliant with Ceftin with no relief of symptoms noted. He should spoke his urologist Dr. smith who instructed to come to the emergency department.. Historian: Patient Arrival Mode: Car Onset (how long ago): day(s) Radiation: Reports back Severity: moderate Onset quality: gradual Duration (how long): day(s) Chronicity: new Associated symptoms: Reports fever/chills, Reports loss of appetite Past Medical/Family History Physician Review I have reviewed the patient's past medical and family history. Any updates have been documented here. Past Medical History Recent Fever: Yes Clinical Suspicion of Infectio: Yes New/Unexplained Change in Ment: No Past Medical History: Hypertension, Diabetes, Kidney Stones, GERD, Hyperlipedemia Other Medical History: acid reflux Past Surgical History: Cholecysctectomy, T&A, Knee Replacement, Back Surgery Other Surgery: shoulder surgery X2, C6-C7 fusion, herniated disk surgery - lumbar, nephrostomy tube 09/01/18, renal stents, lithotripsy Other Last Tetanus: UTD Review of Systems Review of Systems Constitutional: Reports as per HPI, Reports chills, Reports fever, Reports weakness EENTM: Reports no symptoms Cardiovascular: Reports no symptoms Respiratory: Reports no symptoms Gastrointestinal: Reports no symptoms Genitourinary: Reports as per HPI Musculoskeletal: Reports no symptoms Integumentary: Reports no symptoms Neurological: Reports no symptoms Psychological: Reports no symptoms Endocrine: Reports no symptoms Hematological/Lymphatic: Reports no symptoms Physical Exam Related Data Allergies: Coded Allergies: Penicillins (Verified Allergy, Mild, RASH, 11/04/19) Triage Vital Signs Vital Signs Date Time Temp Pulse Resp B/P (MAP) Pulse Ox O2 Delivery O2 Flow Rate FiO2 11/04/19 08:20 98.7 98 22 152/76 97 Room Air Vital signs reviewed: Yes Physical Exam CONSTITUTIONAL Constitutional: Present well-developed, Present well-nourished, Present obese HENT HENT: Present normocephalic, Present atraumatic, Present oropharynx clear/moist, Present nose normal HENT L/R: Present left ext ear normal, Present right ext ear normal EYES Eyes: Reports PERRL, Reports conjunctivae normal NECK Neck: Present ROM normal PULMONARY Pulmonary: Present effort normal, Present breath sounds normal CARDIOVASCULAR Cardiovascular: Present regular rhythm, Present heart sounds normal, Present capillary refill normal, Present normal rate GASTROINTESTINAL Abdominal: Present soft, Present nontender, Present bowel sounds normal GENITOURINARY Genitourinary: Present exam deferred SKIN Skin: Present warm, Present dry MUSCULOSKELETAL Musculoskeletal: Present ROM normal NEUROLOGICAL Neurological: Present alert, Present oriented x 3, Present no gross motor or sensory deficits PSYCHOLOGICAL Psychological: Present mood/affect normal, Present judgement normal Results Laboratory Lab results reviewed: Yes Laboratory comments Laboratory Tests Test 11/04/19 11:10 11/04/19 10:43 11/04/19 09:40 11/04/19 09:27 Lactic Acid Level 1.1 mmol/L (0.5-2.0) 2.5 mmol/L (0.5-2.0) Urine Color Yellow (YELLOW) Urine Clarity Turbid (CLEAR) Urine pH 5.5 (5 - 7) Urine Specific [place] 1.020 (1.010-1.025) Urine Protein 2+ (NEGATIVE) Urine Glucose (UA) 2+ (NEGATIVE) Urine Ketones Negative (NEGATIVE) Urine Blood Large (NEGATIVE) Urine Nitrite Negative (NEGATIVE) Urine Bilirubin Negative (NEGATIVE) Urine Urobilinogen 0.2 mg/dL (0.2 - 1) Urine Leukocyte Esterase Moderate (NEGATIVE) Urine RBC 21-50 /HPF (0-5) Urine WBC >50 /HPF (0-5) Urine Epithelial Cells None /LPF (NONE) Urine Bacteria Many /HPF (NONE) Test 11/04/19 08:40 White Blood Count 7.90 x10e3/uL (4.8-10.8) Red Blood Count 4.84 x10e6/uL (4.3-5.7) Hemoglobin 12.5 g/dL (14.0-18.0) Hematocrit 39.5 % (38.2-49.6) Mean Corpuscular Volume 81.6 fL (81-99) Mean Corpuscular Hemoglobin 25.8 pg (28-32) Mean Corpuscular Hemoglobin Concent 31.6 g/dL (31-35) Red Cell Distribution Width 15.3 % (11.7-14.4) Platelet Count 234 x10e3/uL (140-360) Neutrophils (%) (Auto) 80.7 % (38.7-80.0) Lymphocytes (%) (Auto) 9.7 % (18.0-39.1) Monocytes (%) (Auto) 8.1 % (4.4-11.3) Eosinophils (%) (Auto) 0.4 % (0.0-6.0) Basophils (%) (Auto) 0.3 % (0.0-1.0) Neutrophils # (Auto) 6.4 (2.1-6.9) Lymphocytes # (Auto) 0.8 (1.0-3.2) Monocytes # (Auto) 0.6 (0.2-0.8) Eosinophils # (Auto) 0.0 (0.0-0.4) Basophils # (Auto) 0.0 (0.0-0.1) Absolute Immature Granulocyte (auto 0.06 x10e3/uL (0-0.1) Sodium Level 136 mmol/L (136-145) Potassium Level 3.3 mmol/L (3.5-5.1) Chloride Level 106 mmol/L (98-107) Carbon Dioxide Level 16 mmol/L (22-29) Anion Gap 17.3 mmol/L (8-16) Blood Urea Nitrogen 26 mg/dL (7-26) Creatinine 2.78 mg/dL (0.72-1.25) Estimat Glomerular Filtration Rate 24 ML/MIN (60-) BUN/Creatinine Ratio 9 (6-25) Glucose Level 216 mg/dL (74-118) Calcium Level 9.2 mg/dL (8.4-10.2) Total Bilirubin 0.7 mg/dL (0.2-1.2) Aspartate Amino Transf (AST/SGOT) 19 IU/L (5-34) Alanine Aminotransferase (ALT/SGPT) 19 IU/L (0-55) Alkaline Phosphatase 76 IU/L (40-150) Creatine Kinase 138 IU/L (30-200) Creatine Kinase MB 1.10 ng/mL (0-5.0) Troponin I 0.015 ng/mL (0-0.300) Total Protein 7.5 g/dL (6.5-8.1) Albumin 3.4 g/dL (3.5-5.0) Globulin 4.1 g/dL (2.3-3.5) Albumin/Globulin Ratio 0.8 (0.8-2.0) Imaging Imaging results reviewed: Yes Impressions IMPRESSION: No acute findings in the abdomen or pelvis. Stable bilateral nonobstructive renal calculi. Critical Care Time Total Critical Care Time (min): 65 Critical care time exclusive o: separately billable procedures Critcal care necessary due to: sepsis Assessment & Plan Medical Decision Making MDM 54 male arrives to the ED with complaints of fever and a UTI. Concerns of severe sepsis noted at time ZERO of 09 Patient with organ dysfunction noted with acute on chronic renal failure and a creatinine of 2.78 SIRS criteria met with heart rate and respiratory rate Source noted in the urine Blood cultures lactic acid and broad spectrum antibiotics given Initial lactic acid noted to be 2.5 Repeat lactic acid 1.6 Patient hemodynamically stable at time of admission. Assessment & Plan Final Impression: (1) Acute on chronic renal failure (2) UTI (urinary tract infection) (3) Severe sepsis Depart Disposition: ADMITTED Last Vital Signs Date Time Temp Pulse Resp B/P (MAP) Pulse Ox O2 Delivery O2 Flow Rate FiO2 11/04/19 08:20 98.7 98 22 152/76 97 Room Air Home Meds Active Scripts Ciprofloxacin Hcl (CIPRO) 500 Mg Tablet, 500 MG PO Q12H, #28 TAB Prov:CHRYSTAL BOCANEGRA 11/02/19 Ondansetron Hcl* (ZOFRAN*) 4 Mg Tablet, 4 MG SL Q6H PRN for NAUSEA, #14 TAB 0 Refills Prov:AYLEEN THAKKARO L [employer] CONTROL CLERK 04/01/19 Levofloxacin (LEVAQUIN) 750 Mg Tablet, 750 MG PO DAILY for 7 Days, #7 TAB Prov:THAKKARGREG WONGDRO L [employer]ORY CONTROL CLERK 04/01/19 Tamsulosin Hcl* (FLOMAX*) 0.4 Mg Cap, 0.4 MG PO DAILY, #10 CAP 0 Refills Prov:THAKKARAYLEEN WONGO L [employer] IN[employer]ORY CONTROL CLERK 04/01/19 Acetaminophen With Codeine (TYLENOL WITH CODEINE #3 TABLET) 1 Each Tablet, 300 MG PO Q4H for pain, #20 TAB Prov:AYLEEN THAKKARO L [employer] IN[employer]ORY CONTROL CLERK 04/01/19 Reported Medications Acetaminophen With Codeine (TYLENOL WITH CODEINE #3 TABLET) 1 Each Tablet, 300 MG PO PRN for Mild Pain (1-3) or Fever>100.8, TAB 02/18/19 Meclizine Hcl (MECLIZINE HCL) 25 Mg Tablet, 25 MG PO PRN 02/16/19 [Amlodipine/Valsartan] No Conflict Check, 5-320 MG PO DAILY 02/16/19 Metformin Hcl (METFORMIN HCL ER) 500 Mg Tab.er.24, 1 TAB PO HS, #60 TAB 09/17/18 Triamterene/Hydrochlorothiazid (TRIAMTERENE-HCTZ 37.5-25 MG CP) 1 Each Capsule, 37.5 MG PO DAILY 09/01/18 [Farxiga] MG No Conflict Check, 10 MG PO DAILY 09/01/18 Pantoprazole Sodium* (PROTONIX) 40 Mg Tablet.dr, 40 MG PO DAILY, TAB 08/18/18 Gluc 2KCL/Chondr/Darrel Hy/Hy Ac (GLUCOSAMINE & CHONDROITIN CAP) 1 Each Capsule 01/05/18 Vitamin B Complex & Vit C No.4 (SUPER B COMPLEX) 150 Mg Tablet 01/05/18 Nebivolol Hcl (BYSTOLIC) 10 Mg Tablet, 20 MG PO DAILY 05/04/12 Atorvastatin Calcium (LIPITOR) 20 Mg Tablet, 20 MG PO DAILY 05/04/12 Meloxicam (MELOXICAM) 15 Mg Tablet, 15 MG PO DAILY 05/04/12 Medications in the ED Sodium Chloride 1,000 ml @ 0 mls/hr Q0M STAT IV ; Start 11/04/19 at 08:25; Stop 11/04/19 at 08:29; Status DC Ceftriaxone Sodium 50 ml @ 100 mls/hr ONCE ONCE IV ; Start 11/04/19 at 08:30; Stop 11/04/19 at 08:34; Status DC Levofloxacin/ Dextrose 100 ml @ 100 mls/hr NOW STAT IV ; Start 11/04/19 at 08:33; Stop 11/04/19 at 09:32 Morphine Sulfate 4 mg ONCE PRN IV SEVERE PAIN (7-10); Start 11/04/19 at 08:45; Stop 11/11/19 at 08:44; Status UNV Ondansetron HCl 4 mg NOW STAT IV ; Start 11/04/19 at 08:41; Stop 11/04/19 at 08:42; Status UNV CHARI EPPS, DO Nov 04, 2019:03
[2019-11-04 09:17] LABS: BASOPHILS % 0.3 % (0.0-1.0); EOSINOPHILS % 0.4 % (0.0-6.0); HEMATOCRIT 39.5 % (38.2-49.6); HEMOGLOBIN 12.5 g/dL (14.0-18.0); LYMPHOCYTES # (AUTO) 0.8 (1.0-3.2); LYMPHOCYTES % 9.7 % (18.0-39.1); MEAN CORPUSCULAR HEMOGLOBIN 25.8 pg (28-32); MEAN CORPUSCULAR HGB CONC 31.6 g/dL (31-35); MEAN CORPUSCULAR VOLUME 81.6 fL (81-99); MONOCYTES # (AUTO) 0.6 (0.2-0.8); MONOCYTES % 8.1 % (4.4-11.3); NEUTROPHILS # (AUTO) 6.4 (2.1-6.9); NEUTROPHILS % 80.7 % (38.7-80.0); PLATELET COUNT 234 x10e3/uL (140-360); RED BLOOD COUNT 4.84 x10e6/uL (4.3-5.7); RED CELL DISTRIBUTION WIDTH 15.3 % (11.7-14.4)
[2019-11-04 09:34] LABS: ALBUMIN 3.4 g/dL (3.5-5.0); ALBUMIN/GLOBULIN RATIO 0.8 (0.8-2.0); ANION GAP 17.3 mmol/L (8-16); CALCIUM 9.2 mg/dL (8.4-10.2); CREATININE, SERUM 2.78 mg/dL (0.72-1.25); POTASSIUM 3.3 mmol/L (3.5-5.1)
[2019-11-04 09:40] LABS: CREATINE KINASE MB 1.1 ng/mL (0-5.0)
[2019-11-04 09:57] LABS: CLARITY,URINE TURBID (CLEAR); COLOR,URINE YELLOW (YELLOW)
[2019-11-04 09:58] LABS: BILIRUBIN,URINE NEGATIVE (NEGATIVE); KETONES,URINE NEGATIVE (NEGATIVE); LEUKOCYTE ESTERASE ,URINE MODERATE (NEGATIVE); NITRITE,URINE NEGATIVE (NEGATIVE); PROTEIN,URINE DIPSTICK 2+ (NEGATIVE); URINE UROBILINOGEN 0.2 mg/dL (0.2 - 1)
[2019-11-04 10:04] LABS: BACTERIA,URINE MANY /HPF; RBC,URINE 21-50 /HPF (0-5); WBC,URINE (MAN) >50 /HPF (0-5)
[2019-11-04] MEDS ORDERED: ONDANSETRON HCL INJ 2MG/ML 2ML 2 MG/ML VIAL IV PRN (10:30)
--- NOTE | 2019-11-04 10:36 | Diagnostic Imaging Report ---
EXAM: CT Abdomen and Pelvis WITHOUT intravenous contrast INDICATION: Abdominal pain COMPARISON: CT abdomen and pelvis of 08/11/2019 TECHNIQUE: Abdomen and pelvis were scanned utilizing a multidetector helical scanner from the lung base to the pubic symphysis without administration of IV contrast. Coronal and sagittal reformations were obtained. IV CONTRAST: None ORAL CONTRAST: Water COMPLICATIONS: None RADIATION DOSE: Total DLP: 1339 mGy*cm Dose modulation, iterative reconstruction, and/or weight based adjustment of the mA/kV was utilized to reduce the radiation dose to as low as reasonably achievable. FINDINGS: LOWER THORAX: Right middle lobe calcified granuloma. No focal lung base consolidation. HEPATOBILIARY: No focal liver lesion. Status post cholecystectomy. SPLEEN: No splenomegaly. PANCREAS: No focal masses or ductal dilatation. ADRENALS: No adrenal nodules. KIDNEYS/URETERS: Unchanged 5 and 6 mm left lower pole nonobstructive renal calculi and 6 mm right lower pole renal calculus. No hydronephrosis or hydroureter. No solid renal mass lesion. PELVIC ORGANS/BLADDER: Unremarkable. PERITONEUM / RETROPERITONEUM: No free air or fluid. LYMPH NODES: No lymphadenopathy. VESSELS: Minimal atherosclerotic calcifications. No abdominal aortic aneurysm. GI TRACT: No distention or wall thickening. BONES AND SOFT TISSUES: Unremarkable. IMPRESSION: No acute findings in the abdomen or pelvis. Stable bilateral nonobstructive renal calculi. Signed by: Kurt Welsh MD on 11/04/2019 10:33 AM
--- OUTSIDE RECORDS SUMMARY | 2019-11-04 10:43 | XMS REPORT | Clinical Summary ---
Author Author [facility] Organization [facility] Address Unknown Phone Unavailable Care Team Providers Care Reception Clerk Name Role Phone Troy Guerrero MD PCP [...] Active glucosam/chond/collagen/h Take by 0 yalur mouth. 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
--- OUTSIDE RECORDS SUMMARY | 2019-11-04 10:43 | XMS REPORT | Continuity of Care Document ---
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 H Active 05/31/2015 [facility] ICD NOT GIVEN / CPT 15086 31639 51764 Active 12/04/2012 [facility] STONE 592.0 592.1/CPT 79909 26806 Active 12/03/2012 [facility] Incomplete rotator cuff tear or rupture of right shoulder, not specified as traumatic 09/02/2018 [facility] [place] Bicipital tendinitis, right shoulder 09/02/2018 [facility] [place] Effusion, left knee 09/02/2018 [facility] [place] Pain in left knee 09/02/2018 [facility] [place] Acid reflux Active Problem 12/18/2012 [facility] Back pain Active Problem 12/18/2012 1lumbar [facility] Chest pain Resolved Problem 12/18/2012 27 Dx as acid reflux [facility] Foot swelling Active Problem 12/18/2012 [facility] GERD - Gastro-esophageal reflux disease Active Problem 12/18/2012 [facility] HTN - Hypertension Active Problem 12/18/2012 [facility] Obese Active Problem 12/18/2012 [facility] Poor peripheral circulation Re solved Problem 01/2013 3swelling to LE [facility] Renal stone Active Problem 12/18/2012 [facility] Retained ureteral stent Active Problem 12/18/2012 4left [facility] Sleep apnea Active Problem 12/18/2012 5uses CPAP [facility] Strain of muscle, fascia and tendon of l jigna head of biceps, right arm, initial encounter 10/06/2018 [facility] Other synovitis and tenosynovitis, right shoulder 10/06/2018 [facility] Loose body in right shoulder 10/06/2018 [facility] Primary osteoarthritis, right shoulder 10/06/2018 [facility] Morbid (severe) obesity due to excess calories 10/06/2018 [facility] Body mass index (BMI) 50-59.9 , adult 10/06/2018 [facility] Essential (primary) hypertension 10/06/2018 [facility] Gastro-esophageal reflux disease without esophagitis 10/06/2018 [facility] Type 2 diabetes mellitus without complications 10/06/2018 [facility] halfway (current) use of aspirin 10/06/2018 [facility] 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 10/06/2018 [facility] Gastroesophageal reflux disease (disorder) Active Problem 10/06/2018 [facility] Ritter [facility],[facility] Backache (finding) Resolved Problem 10/06/2018 lumbar [facility]A Ritter [facility] [place],[facility] Chest pain (finding) Resolved Problem 10/06/2018 7/13 Dx as acid reflux [facility]A Ritter [facility] [place],[facility] Diabetes mellitus (disorder) A [facility]ive [facility] Foot swelling (finding) Active Problem 10/06/2018 FIONA Ritter F[facility]A [place],[facility] Hypertensive disorder, systemic arterial (disorder) Active Problem 10/06/2018 FIONA Ritter [facility] [place],[facility] Injury of superior glenoid labrum of sriram ulder joint (disorder) Active Prob hiral 10/06/[facility] Obese (finding) Active Problem 10/06/2018 FIONA Ritter [facility] [place],[facility] Poor peripheral circulation (disorder) Resolved Problem 10/06/2018 swelling to LE [facility] [place],[facility] Kidney stone (disorder) Resolv ed Problem FIONA Ritter [facility] [place],[facility] Retained ureteric stent (disorder) Resolved Problem left [facility]A Ritter, [facility] [place], [place],[facility] Sleep apnea (finding) Active Problem 10/06/2018 uses CPAP FIONA Ritter, O [facility] [place], [place],[facility] Medications Medication Details Route Status Patient Instructions Ordering Provider Order Date Source Ketorolac 15 mg, Route: IVP, Q 6H, Dosing Weight 175, kg, Start date: 03/19/18 12:00:00 [employer], Duration: 6 doses or times, Stop date: 03/20/18 18:00:00 [employer] Inactive 03/19/2018 [facility] Phenergan 25 mg, Route: IVPB, Q4H, Dosing Weight 175, kg, PRN Nausea & Vomiting, Start date: 03/19/18 10:02:00 [employer], Duration: 30 day, Stop date: 04/18/18 10:01:00 [employer] Inactive 03/19/2018 [facility] Zofran 4 mg, Route: IV, Drug f orm: INJ, Q4H, Dosing Weight 175, kg, PRN Nausea, Start date: 03/19/18 10:02:00 [employer], Duration: 30 day, Stop date: 04/18/18 10:01:00 [employer] Inactive 03/19/2018 [facility] Morphine 2 mg, Route: IVP, Q3H , Dosing Weight 175, kg, PRN Pain Score 1-3, Start date: 03/19/18 10:02:00 [employer], Duration: 30 day, Stop date: 04/18/18 10:01:00 [employer] Inactive 03/19/2018 [facility] Tramadol 50 mg, Route: PO, Donovan g form: TAB, Q6H, Dosing Weight 175, kg, PRN Pain Score 1-3, Start date: 03/19/18 10:02:00 [employer], Duration: 30 day, Stop date: 04/18/18 10:01:00 [employer] Inactive 03/19/2018 [facility] Hydromorphone 0.3 mg, 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, Q3H, Dosing Weight 175, kg, PRN Pain Score 4-6, Start date: 03/19/18 10:02:00 [employer], Duration: 30 day, Stop date: 04/18/18 10:01:00 [employer] Inactive 03/19/2018 [facility] Acetaminophen 325 MG / Hydrocodone Deangelo trate 5 MG Oral Tablet Route: PO, Dosing Weight 175, kg, Q4H, P RN Pain Score 4-6, Start date: 03/19/18 10:02:00 [employer], Duration: 30 day, Stop date: 04/18/18 10:01:00 [employer] Inactive 03/19/2018 [facility] ceFAZolin (ANES) Route: IV, Dr ug form: INJ, ONCE, Stop date: 03/19/18 8:57:00 [employer] Inactive 03/19/2018 [facility] neostigmine (ANES) Route: IV, Drug form: INJ, ONCE, Stop date: 03/19/18 8:57:00 [employer] Inactive 03/19/2018 [facility] glycopyrrolate (ANES) Route: I V, Drug form: INJ, ONCE, Stop date: 03/19/18 8:57:00 [employer] Inactive 03/19/2018 [facility] propofol (ANES) Route: IV, Donovan g form: INJ, ONCE, Stop date: 03/19/18 8:57:00 [employer] Inactive 03/19/2018 [facility] rocuronium (ANES) Route: IV, D rug form: INJ, ONCE, Stop date: 03/19/18 8:57:00 [employer] Inactive 03/19/2018 [facility] famotidine (ANES) Route: IV, D rug form: INJ, ONCE, Stop date: 03/19/18 8:57:00 [employer] Inactive 03/19/2018 [facility] acetaminophen (ANES) Route: IV , Drug form: INJ, ONCE, Stop date: 03/19/18 8:57:00 [employer] Inactive 03/19/2018 [facility] metoclopramide (ANES) Route: I V, Drug form: INJ, ONCE, Stop date: 03/19/18 8:57:00 [employer] Inactive 03/19/2018 [facility] ondansetron (ANES) Route: IV, Drug form: INJ, ONCE, Stop date: 03/19/18 8:57:00 [employer] Inactive 03/19/2018 [facility] vancomycin (ANES) Route: IV, D rug form: INJ, ONCE, Stop date: 03/19/18 8:57:00 [employer] Inactive 03/19/2018 [facility] lidocaine (ANES) Route: IV, Dr ug form: INJ, ONCE, Stop date: 03/19/18 8:57:00 [employer] Inactive 03/19/2018 [facility] Naloxone 0.04 mg, Route: IVP, Q2MIN, Dosing Weight 175, kg, PRN Narcotic Reversal, Start date: 03/19/18 8:33:00 [employer], Duration: 30 day, Stop date: 04/18/18 8:32:00 [employer] Inactive 03/19/2018 [facility] Lactated Ringers IV 1000 mL 1, 000 mL, Rate: 100 ml/hr, Infuse over: 10 hr, Route: IV, Dosing Weight 175 kg, Total Volume: 1,000, Start date: 03/19/18 8:33:00 [employer], Duration: 30 day, Stop date: 04/18/18 8:32:00 [employer], 3.03, m2 Inactive 03/19/2018 [facility] Lactated Ringers Injection IV (ANES) 1000 mL Route: IV, Total Volume: 1,000, Start date: 03/19/18 7:53:00 [employer], Stop date: 03/19/18 8:53:00 [employer] Inactive 03/19/2018 [facility] Calcium Chloride 0.0014 MEQ/ML / Potassi um Chloride 0.004 MEQ/ML / Sodium Chloride 0.103 MEQ/ML / Sodium Lactate 0.028 MEQ/ML Injectable Solution 1,000 mL, Rate: 25 ml/hr, Infuse over: 4 0 hr, Route: IV, Dosing Weight 175 kg, Total Volume: 1,000, Start date: 03/19/18 6:56:00 [employer], Duration: 30 day, Stop date: 04/18/18 6:55:00 [employer], 3.03, m2 Inactive 03/19/2018 [facility] clindamycin 300 mg oral capsule 300 mg = 1 cap, PO, TID, X 15 day, # 45 cap, 0 Refill(s) No Longer Active 03/19/2018 [facility] meclizine 25 mg oral tablet 25 mg = 1 tab, PO, PRN, 0 Refill(s) Active 03/13/2018 [facility] Metformin hydrochloride 500 MG Oral Tablet 500 mg = 1 tab, PO, Bedtime, 0 Refill(s) Active 03/13/2018 [facility] pantoprazole 40 mg oral enteric coated tablet 40 mg = 1 tab, PO, Daily, 0 Refill(s) Active 03/13/2018 [facility] Amlodipine 5 MG / valsartan 320 MG Oral Tablet 1 tab, PO, Daily, # 30 tab, 0 Refill(s) Active 03/13/2018 [facility] Glucosamine Chondroitin PO, Da melly, 0 Refill(s) Active 03/13/2018 [facility] Super B Complex oral tablet PO , Daily, 0 Refill(s) Active 03/13/2018 [facility] dapagliflozin propanediol 10 MG Oral Tablet [Stefanxiga] 10 mg = 1 tab, PO, Daily, 0 Refill(s) Active 03/13/2018 [facility] ketorolac 15 mg, 1 mL, Route: IVP, Drug form: INJ, Q6H, Dosing Weight 193.182, kg, Start date: 12/11/12 18:00:00, Duration: 6 doses or times, Stop date: 12/13/12 0:00:00 IVP No Longer Active Ceasar 12/11/2012 [facility] Lactated Ringers Injection IV 1000 mL 1,000 mL, Rate: 50 ml/hr, Infuse over: 20 hr, Route: IV, Dosing Weight 193.182 kg, Total Volume: 1,000, Start date: 12/11/12 13:42:00, Duration: 30 day, Stop date: 01/10/13 13:41:00 IV No Longer Active Johan 12/11/2012 [facility] acetaminophen-hydrocodone 325 mg-5 mg oral tablet 1 tab, Route: PO, Dosing Weight 193.182, kg, Q4H, PRN Pain Score 1-3, Start date: 12/11/12 13:42:00, Duration: 30 day, Stop date: 01/10/13 13:41:00 PO No Longer Active Johan 12/11/2012 [facility] naloxone 0.04 mg, Route: IVP, Q2MIN, Dosing Weight 193.182, kg, PRN Narcotic Reversal, Start date: 12/11/12 13:42:00, Duration: 8 doses or times, Stop date: Limited # of times IVP No Longer Active Johan 12/11/2012 [facility] ondansetron 4 mg, Route: IVP, ONCE, Dosing Weight 193.182, kg, PRN Nausea & Vomiting, Start date: 12/11/12 13:42:00 IVP No Longer Active Johan 12/11/2012 [facility] hydromorphone 0.5 mg, 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, 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, Dosing Weight 193.182, kg, PRN Pain Score 7-10, Start date: 12/11/12 13:42:00, Duration: 5 doses or times, Stop date: Limited # of times IVP No Longer Active [facility] 12/11/2012 [facility] fentanyl 25 microgram, Route: IVP, Q5Min, Dosing Weight 193.182, kg, PRN Pain Score 4-6, Start date: 12/11/12 13:42:00, Duration: 4 doses or times, Stop date: Limited # of times IVP No Longer Active Carmen 12/11/2012 [facility] flumazenil 0.2 mg, Route: IVP, PRN, Dosing Weight 193.182, kg, PRN Benzodiazepine Reversal, Initial dose, Start date: 12/11/12 13:42:00, Duration: 30 day, Stop date: 01/10/13 12:41:00 IVP No Longer Active [facility] 12/11/2012 [facility] morphine Sulfate 2 mg, 1 mL, R oute: IVP, Drug form: INJ, Q3H, Dosing Weight 193.182, kg, PRN Pain Score 1-3, Start date: 12/11/12 13:27:00, Duration: 30 day, Stop date: 01/10/13 13:26:00 IVP No Longer Active Nicolas 12/11/2012 [facility] acetaminophen-hydrocodone 325 mg-10 mg oral tablet 1 tab, Route: PO, Drug Form: TAB, Dosing Weight 193.182, kg, Q4H, PRN Pain Score 4-6, Start date: 12/11/12 13:27:00, Duration: 30 day, Stop date: 01/10/13 13:26:00 PO No Longer Active Nicolas 12/11/2012 [facility] gentamicin + Sodium Chloride 0.9% IV 100 mL 120 mg, 3 mL, Route: IVPB, Drug form: INJ, ONCALL, Dosing Weight 193.182, kg, Start date: 12/11/12 13:00:00, Duration: 30 day, Stop date: 01/10/13 11:59:00 IVPB No Longer Active Nicolas 12/11/2012 [facility] Levaquin 500 mg, 100 mL, Route : IV, Drug form: INJ, ONCALL, Dosing Weight 193.182, kg, Start date: 12/11/12 13:00:00 IV No Longer Active Nicolas 12/11/2012 [facility] Lactated Ringers Injection IV 1000 mL 1,000 mL, Rate: 25 ml/hr, Infuse over: 40 hr, Route: IV, Dosing Weight 193.182 kg, Total Volume: 1,000, Start date: 12/11/12 11:27:00, Duration: 30 day, Stop date: 01/10/13 11:26:00 IV No Longer Active Nick 12/11/2012 [facility] labetalol 5 mg, Route: IVP, Q5 Min, Dosing Weight 193.182, kg, PRN Elevated BP, Start date: 12/04/12 13:04:00, Duration: 5 doses or times, Stop date: Limited # of times IVP No Longer Active Rena Lara 12/04/2012 [facility] esmolol IV Push 10 mg, Route: IVP, Q5Min, Dosing Weight 193.182, kg, PRN Elevated BP, Start date: 12/04/12 13:04:00, Duration: 5 doses or times, Stop date: Limited # of times IVP No Longer Active Rena Lara 12/04/2012 [facility] hydrALAZINE 5 mg, Route: IVP, Q5Min, Dosing Weight 193.182, kg, PRN Elevated BP, Start date: 12/04/12 13:04:00, Duration: 4 doses or times, Stop date: Limited # of times IVP No Longer Active Rena Lara 12/04/2012 [facility] acetaminophen-hydrocodone 325 mg-5 mg oral tablet 1 tab, Route: PO, Dosing Weight 193.182, kg, Q4H, PRN Pain Score 1-3, Start date: 12/04/12 13:04:00, Duration: 30 day, Stop date: 01/03/13 13:03:00 PO No Longer Active Rena Lara 12/04/2012 [facility] hydromorphone 0.5 mg, 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, 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, Dosing Weight 193.182, kg, PRN Pain Score 7-10, Start date: 12/04/12 13:04:00, Duration: 5 doses or times, Stop date: Limited # of times IVP No Longer Active Rena Lara 12/04/2012 [facility] ketorolac 30 mg, Route: IVP, O NCE, Dosing Weight 193.182, kg, Start date: 12/04/12 13:04:00, Duration: 1 doses or times, Stop date: 12/04/12 13:04:00 IVP Active Rena Lara 12/04/2012 [facility] naloxone 0.04 mg, Route: IVP, Q2MIN, Dosing Weight 193.182, kg, PRN Narcotic Reversal, Start date: 12/04/12 13:04:00, Duration: 8 doses or times, Stop date: Limited # of times IVP No Longer Active Rena Lara 12/04/2012 [facility] dexamethasone 4 mg, Route: IVP , ONCE, Dosing Weight 193.182, kg, PRN Nausea & Vomiting, Start date: 12/04/12 13:04:00 IVP No Longer Active Rena Lara 12/04/2012 [facility] ondansetron 4 mg, Route: IVP, ONCE, Dosing Weight 193.182, kg, PRN Nausea & Vomiting, Start date: 12/04/12 13:04:00 IVP No Longer Active Rena Lara 12/04/2012 [facility] flumazenil 0.2 mg, Route: IVP, PRN, Dosing Weight 193.182, kg, PRN Benzodiazepine Reversal, Initial dose, Start date: 12/04/12 13:04:00, Duration: 30 day, Stop date: 01/03/13 13:03:00 IVP No Longer Active Rena Lara 12/04/2012 [facility] morphine Sulfate 2 mg, Route: IVP, Q3H, Dosing Weight 193.182, kg, PRN Pain Score 1-3, Start date: 12/04/12 12:57:00, Duration: 30 day, Stop date: 01/03/13 12:56:00 IVP No Longer Active [facility] 12/04/2012 [facility] acetaminophen-hydrocodone 325 mg-10 mg oral tablet 1 tab, Route: PO, Dosing Weight 193.182, kg, Q4H, PRN Pain Score 4-6, Start date: 12/04/12 12:57:00, Duration: 30 day, Stop date: 01/03/13 12:56:00 PO No Longer Active Ceasar 12/04/2012 [facility] gentamicin 120 mg, Route: IVPB , ONCE, Dosing Weight 193.182, kg, Start date: 12/04/12 11:27:00, Stop date: 12/04/12 11:27:00 IVPB No Longer Active Nicolas 11/09 [facility] Levaquin 500 mg, Route: IVPB, ONCE, Dosing Weight 193.182, kg, Start date: 12/04/12 11:27:00, Stop date: 12/04/12 11:27:00 IVPB No Longer Active Nicolas 11/09 [facility] Lactated Ringers Injection IV 1000 mL 1,000 mL, Rate: 25 ml/hr, Infuse over: 40 hr, Route: IV, Dosing Weight 193.182 kg, Total Volume: 1,000, Start date: 12/04/12 11:05:00, Duration: 30 day, Stop date: 01/03/13 11:04:00 IV No Longer Active Andrea 12/04/2012 [facility] tamsulosin 0.4 mg oral capsule 0.4 mg, 1 cap, PO, Daily, 30 cap, Substitution Allowed, CAP PO Active 12/04/2012 [facility] Zofran 4 mg oral tablet PO, MD N, Substitution Allowed PO Active 12/04/2012 [facility] Cipro PO, Q12H, Substitution A llowed PO Active 12/04/2012 [facility] Aspirin Low Dose 81 mg oral tablet PO, Daily, Substitution Allowed PO Active 12/04/2012 [facility] meloxicam 15 mg oral tablet 15 mg, 1 tab, PO, Daily, 30 tab, Substitution Allowed, TAB PO Active 12/04/2012 [facility] hydrochlorothiazide-triamterene 25 mg-37 .5 mg oral capsule 1 cap, PO, Daily, 30 cap, Substitution A llowed, Maintenance, CAP PO Active 12/04/2012 [facility] amLODipine 5 mg oral tablet 5 mg, 1 tab, PO, Daily, 30 tab, Substitution Allowed, TAB PO Active 12/04/2012 [facility] Bystolic 10 mg oral tablet 10 mg, 1 tab, PO, Daily, 30 tab, Substitution Allowed, TAB PO Active 12/04/2012 [facility] atorvastatin 20 mg oral tablet 20 mg, 1 tab, PO, Daily, 30 tab, Substitution Allowed, TAB PO Active 12/04/2012 [facility] Diovan 320 mg oral tablet 320 mg, 1 tab, PO, Daily, 90 tab, Substitution Allowed, TAB PO Active 12/04/2012 [facility] lansoprazole 30 mg oral delayed release capsule 30 mg, 1 cap, PO, Daily, 30 cap, Substitution Allowed PO Active 12/04/2012 [facility] Allergies, Adverse Reactions, Alerts Substance Category Reaction Severity Reaction type Status Date Reported Comments Source penicillins Assertion Drug allergy Active [facility] Immunizations No Data Provided for This [...] should be multiplied by the estimated BMI. [facility] CHEM PANEL BUN 16 7 - 22 03/13/2018 [facility] CHEM PANEL Creatinine Lvl 1.16 0.50 - 1.40 03/13/2018 [facility] CHEM PANEL Glucose Lvl 135 70 - 99 03/13/2018 [facility] CHEM PANEL Sodium Lvl 140 135 - 145 03/13/2018 [facility] CHEM PANEL Potassium Lvl 3.8 3.5 - 5.1 03/13/2018 [facility] CHEM PANEL Calcium Lvl 9.0 8.5 - 10.5 03/13/2018 [facility] CHEM PANEL CO2 30 24 - 32 03/13/2018 [facility] CHEM PANEL Chloride Lvl 104 95 - 109 03/13/2018 [facility] CHEM PANEL AGAP 9.8 10.0 - 20.0 03/13/2018 [facility] HEMATOLOGY Monocytes 8.3 2.0 - 12.0 03/13/2018 [facility] HEMATOLOGY Segs 59.7 45.0 - 75.0 03/13/2018 [facility] HEMATOLOGY Lymphocytes 28.6 20.0 - 40.0 03/13/2018 [facility] HEMATOLOGY Eosinophils 2.9 0.0 - 4.0 03/13/2018 [facility] HEMATOLOGY Monocytes # 0.7 0.0 - 0.8 03/13/2018 [facility] HEMATOLOGY Eosinophils # 0.3 0.0 - 0.5 03/13/2018 [facility] HEMATOLOGY Basophils 0.5 0.0 - 1.0 03/13/2018 [facility] HEMATOLOGY Neutrophils # 5.3 1.5 - 8.1 03/13/2018 [facility] HEMATOLOGY Lymphocytes # 2.6 1.0 - 5.5 03/13/2018 [facility] HEMATOLOGY Platelet 229 133 - 450 03/13/2018 [facility] HEMATOLOGY RDW 15.1 11.5 - 14.5 03/13/2018 [facility] MPV 8.8 7.4 - 10.4 03/13/2018 [facility] Hgb 14.3 14.0 - 18.0 03/13/2018 [facility] WBC 8.9 3.7 - 10.4 03/13/2018 [facility] HEMATOLOGY RBC 5.11 4.70 - 6.10 03/13/2018 [facility] HEMATOLOGY Hct 43.2 42.0 - 54.0 03/13/2018 [facility] MCHC 33.1 32.0 - 36.0 03/13/2018 [facility] MCH 28.0 27.0 - 31.0 03/13/2018 [facility] HEMATOLOGY MCV 84.6 80.0 - 94.0 03/13/2018 [facility] SPECIAL CHEMISTRY Hgb A1C 7.8 <=5.6 % 03/13/2018 [facility] URINALYSIS UA Color [place] 12/09/2012 NA [facility] URINALYSIS UA RBC >182 0 - 2 12/09/2012 [facility] URINALYSIS UA Sq Epi Occas ional /LPF *NA* (12/09/2012 13:30:00) Few 12/09/2012 NA [facility] URINALYSIS UA WBC 9 0 - 5 12/09/2012 [facility] URINALYSIS UA Turbidity Clear (12/09/2012 13:30:00) Clear 12/09/2012 Normal [facility] URINALYSIS UA Protein Negat tone mg/dL (12/09/2012 13:30:00) Negati ve 12/09/2012 Normal [facility] URINALYSIS UA pH 5.0 5.0 - 8.0 12/09/2012 Normal [facility] URINALYSIS UA Spec Grav 1.015 <=1.030 12/09/2012 Normal [facility] URINALYSIS UA Blood Large *ABN* (12/09/2012 13:30:00) Negati ve 12/09/2012 ABN [facility] URINALYSIS UA Urobilinogen 2.0 0.1 - 1.0 12/09/2012 HI [facility] URINALYSIS UA Nitrite Posit tone *ABN* (12/09/2012 13:30:00) Negati ve 12/09/2012 ABN [facility] URINALYSIS UA Leuk Est Negat tone (12/09/2012 13:30:00) Negati ve 12/09/2012 Normal [facility] URINALYSIS UA Glucose Negat tone mg/dL *NA* (12/09/2012 13:30:00) Negati ve 12/09/2012 NA [facility] URINALYSIS UA Ketones Negat tone mg/dL *NA* (12/09/2012 13:30:00) Negati ve 12/09/2012 NA [facility] URINALYSIS UA Bili Negat tone *NA* (12/09/2012 13:30:00) Negati ve 12/09/2012 NA [facility] Microbiology Culture: Urine 12/09/2012 [facility] CHEMISTRY eGFR 78 12/04/2012 NA <sup>1</sup>Result [...] should be multiplied by the estimated BMI. [facility] CHEMISTRY CO2 29 24 - 32 12/04/2012 Normal [facility] CHEMISTRY Creatinine Lvl 1.1 0.5 - 1.4 12/04/2012 Normal [facility] CHEMISTRY Glucose Lvl 175 70 - 99 12/04/2012 [place] <sup>2</sup>Interpretive Data: Adult ref erence range values reflect the clinical guidelines
of the [place] [employer]. [facility] CHEMISTRY BUN 15 7 - 22 12/04/2012 Normal [facility] CHEMISTRY Calcium Lvl 8.7 8.5 - 10.5 12/04/2012 Normal [facility] CHEMISTRY Potassium Lvl 3.9 3.5 - 5.1 12/04/2012 Normal [facility] CHEMISTRY Sodium Lvl 144 135 - 145 12/04/2012 Normal [facility] CHEMISTRY Chloride Lvl 107 95 - 109 12/04/2012 Normal [facility] CHEMISTRY AGAP 11.9 10.0 - 20.0 12/04/2012 Normal [facility] HEMATOLOGY Hgb 11.7 14.0 - 18.0 12/04/2012 LOW [facility] HEMATOLOGY MCV 83.6 80.0 - 94.0 12/04/2012 Normal [facility] HEMATOLOGY Hct 36.1 42.0 - 54.0 12/04/2012 LOW [facility] HEMATOLOGY RDW 14.2 11.5 - 14.5 12/04/2012 Normal [facility] HEMATOLOGY Platelet 217 133 - 450 12/04/2012 Normal [facility] HEMATOLOGY MPV 8.7 7.4 - 10.4 12/04/2012 Normal [facility] HEMATOLOGY RBC 4.32 4.70 - 6.10 12/04/2012 LOW [facility] HEMATOLOGY MCHC 32.3 32.0 - 36.0 12/04/2012 Normal [facility] HEMATOLOGY MCH 27.0 27.0 - 31.0 12/04/2012 Normal [facility] HEMATOLOGY WBC 7.0 3.7 - 10.4 12/04/2012 Normal [facility] HEMATOLOGY Segs-Bands # 5.0 1.5 - 8.1 12/04/2012 Normal [facility] HEMATOLOGY Basophils 0.2 0.0 - 1.0 12/04/2012 Normal [facility] HEMATOLOGY Eosinophils # 0.1 0.0 - 0.5 12/04/2012 Normal [facility] HEMATOLOGY Monocytes # 0.6 0.0 - 0.8 12/04/2012 Normal [facility] HEMATOLOGY Lymphocytes # 1.2 1.0 - 5.5 12/04/2012 Normal [facility] HEMATOLOGY Segs 72.1 45.0 - 75.0 12/04/2012 Normal [facility] HEMATOLOGY Eosinophils 2.1 0.0 - 4.0 12/04/2012 Normal [facility] HEMATOLOGY Monocytes 8.7 2.0 - 12.0 12/04/2012 Normal [facility] Lymphocytes 16.9 20.0 - 40.0 12/04/2012 LOW [facility] Basophils # 0.0 0.0 - 0.2 12/04/2012 Normal [facility] PTT 30.0 22.9 - 35.8 12/04/2012 Normal <sup>4</sup>Interpretive Data: Heparin T herapeutic Range: 57 - 92 Seconds [facility] PT 12.8 12.0 - 14.7 12/04/2012 Normal [facility] INR 0.97 0.85 - 1.17 12/04/2012 Normal <sup>3</sup>Interpretive Data: RECOMMEND ED RANGES FOR PROTIME INR:
2.0-3.0 for most medical and surgical thromboembolic states.
2.5-3.5 for artificial heart valves and recurrent embolism.

INR SHOULD BE USED ONLY FOR PATIENTS ON STABLE ANTICOAGULANT THERAPY. [facility] Pathology Reports No Data Provided for This Section Diagnostic Reports Report Value Date Source Shoulder w contrast MRI EXAM: MR ARTHROGRAM RIGHT SHOULDER DATE: 02/12/2018 10:01 AM [employer] INDICATION: - M25.511 Pain in right shoulder [...] FOR MR ARTHROGRAM DATE: 02/12/2018 9:20 AM [employer] INDICATION: - M25.511 Pain in right shoulder [...] otherwise normal. 3. Normal orbits 06/16/2015 [facility] Abdomen AP view Spot images fr om Cystoscopy show a left ureteral stent in good position. SL:13 12/11/2012 [facility] Kidney pyelogram retrograde RE TROGRADE PYELOGRAPHY COMPARISON: None IMPRESSION: Multiple fluoroscopic spot radiographs are submitted, demonstrating bilateral retrograde pyelography. Refer to the operating clinician's report for further discussion. SL: 13 12/04/2012 [facility] Consultation Notes No Data Provided for This Section Discharge Summaries No Data Provided for This Section History and Physicals No Data Provided for This Section Vital Signs Vital Sign Value Date Comments Source Systolic (mm Hg) 130 03/19/2018 [facility] Diastolic (mm Hg) 67 03/19/2018 [facility] Systolic (mm Hg) 141 03/19/2018 [facility] Diastolic (mm Hg) 69 03/19/2018 [facility] Systolic (mm Hg) 123 03/19/2018 [facility] Diastolic (mm Hg) 54 03/19/2018 [facility] Respitory Rate 19 03/19/2018 [facility] Respitory Rate 19 03/19/2018 [facility] Respitory Rate 23 03/19/2018 [facility] Heart Rate 79 03/19/2018 [facility] Heart Rate 75 03/19/2018 [facility] Temperature Oral (F) 97.9 F 03/13/2018 [facility] Heart Rate 65 03/13/2018 [facility] Height 182.88 cm 03/13/2018 [facility] Weight 175 03/13/2018 [facility] BMI Calculated 52.32 03/13/2018 [facility] Systolic (mm Hg) 156 12/11/2012 [facility] Diastolic (mm Hg) 55 12/11/2012 [facility] Diastolic (mm Hg) 72 12/11/2012 [facility] Systolic (mm Hg) 150 12/11/2012 [facility] Respitory Rate 17 12/11/2012 [facility] Systolic (mm Hg) 135 12/11/2012 [facility] Diastolic (mm Hg) 65 12/11/2012 [facility] Respitory Rate 14 12/11/2012 [facility] Respitory Rate 18 12/11/2012 [facility] Heart Rate 66 12/11/2012 [facility] Temperature Oral (F) 98.3 F 12/09/2012 [facility] Heart Rate 74 12/09/2012 [facility] Height 177.8 cm 12/09/2012 [facility] Weight 193.182 12/09/2012 [facility] Diastolic (mm Hg) 70 12/04/2012 [facility] Systolic (mm Hg) 144 12/04/2012 [facility] Respitory Rate 19 12/04/2012 [facility] Systolic (mm Hg) 146 12/04/2012 [facility] Diastolic (mm Hg) 75 12/04/2012 [facility] Systolic (mm Hg) 145 12/04/2012 [facility] Diastolic (mm Hg) 63 12/04/2012 [facility] Respitory Rate 16 12/04/2012 [facility] Respitory Rate 18 12/04/2012 [facility] Heart Rate 73 12/04/2012 [facility] Temperature Oral (F) 98.3 F 12/04/2012 [facility] Weight 193.182 12/04/2012 [facility] Height 177.8 cm 12/04/2012 [facility] Encounters Location Location Details Encounter Type Encounter Number Reason For Visit Attending Provider ADM Date DC Date Status Source [facility] DS [id number] MARIANN CEASAR 12/04/2012 12/04/2012 Discharged [facility] DS [id number] [facility] CEASAR 12/11/2012 12/11/2012 Discharged [facility] [id number] Baltazar Guerrero 06/16/2015 06/17/2015 [facility] [id number] Oswald Wyatt 02/12/2018 02/13/2018 [facility] [id number] Oswald Fontanezn 03/19/2018 03/19/2018 [facility] [id number] Oswald Wyatt 04/07/2018 05/07/2018 [facility] Patients [id number] Oswald Fontanezn 05/07/2018 06/06/2018 [facility] Procedures Procedure Code Date Perfomer Comments Source Injection procedure for shoulder arthrog bakari or enhanced CT/MRI shoulder arthrography 22604 02/12/2018 [facility] Cystourethroscopy, with insertion of ind welling ureteral stent (eg, De [place] or double-J type) [id number] 12/11/2012 [facility] Cystourethroscopy, with ureteroscopy and /or pyeloscopy; with removal or manipulation of calculus (ureteral catheterization is included) [id number] 12/11/2012 [facility] Transurethral Removal of Obstruction fro m Ureter and Renal Pelvis [id number] 12/11/2012 [facility] Ureteral Catheterization [id number] 953 12/11/2012 [facility] Shoulder joint operations<sup>1</sup> [id number] 03/10/2010 [facility] tear [facility] Harika casillas 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 [id number] 03/10/2007 [facility] Ritter, [facility],[facility] [place] 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<sup>1</sup> [id number] [facility] & [facility] Shoulder joint operations 1794 78314 [facility] [place] Stent placement [id number] [facility] Ablation [id number] [facility] Cardiac catheterization [id number] 19 [facility] Cholecystectomy [id number] [facility] 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 <sup>1</sup> [id number] 1bone graft & metal plate [facility] Lithotripsy [id number] [facility] Shoulder joint operations 2776 42625 [facility] 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 [id number] [facility] Ablation [id number] [facility] [place], [facility] [place], [facility] Arthroplasty of knee [id number] [facility] [place],[facility] Cardiac catheterization 275830 01 [facility] [place], [facility] [place],[facility] Cholecystectomy [id number] [facility] [place], [facility] [place],[facility] 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 Alcohol Never Smoking Status Never smoker; Exposure to Tobacco Smoke None; Cigarette Smoking Last 365 Days No; Reg Smoking Cessation Counseling No entered on: 03/13/18 03/13/2018 [facility] Social History TypeResponse Substance Abuse Use: None. Alcohol Never Smoking Status Never smoker; Exposure to Tobacco Smoke None; Cigarette Smoking Last 365 Days No; Reg Smoking Cessation Counseling No entered on: 03/13/18 03/13/2018 [facility] Social History TypeResponse Substance Abuse Use: None. [...]
--- OUTSIDE RECORDS SUMMARY | 2019-11-04 10:44 | XMS REPORT | Continuity of Care Document ---
Author Author [facility] t Organization [facility] Address [address] [place] [address] Phone Unavailable Care Team Providers Care Tape Editor Name Role Phone DO KARTHIKEYAN GUERRERO DO PCP Veronique EPPS Attphys Unavailable Ashley BOCANEGRA Attphys Unavailable Celestino SALDAÑA Attphys Unavailable CARLOS COX Attphys Unavailable NAVARRO CHONG Attphys Unavailable DOMENIC CHAPMAN Attphys Unavailable CASTANEDA, SOUHEIL Attphys Unavailable Soto Wyatt Attphys RASHMI, HIGGINS Attphys Unavailable Spencer Guerrero Attphys CASTANEDA, SOUHEIL Admphys Unavailable RASHMI, HIGGINS Admphys Unavailable Payers Payer Name Policy Type Policy Number Effective Date Expiration Date S jasen [employer] [place] Ppo [id number] 2019 00:00:00 [facility] Problems Condition Name Condition Details Condition Category Status Onset Date Resolution Date Last Treatment Date Treating Clinician Comments Source LANG CROFT Active 03/04/2018 [facility] Active 2018-03-04 00:00:00 2018-03-19 06:00:00 M lucinda Ritter RT SHOULDER RT S SIMI Active 10/08/2017 [facility] Active 2017-10-08 08:00:00 2018-05-07 15:58:00 [facility] 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 H 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 H Active 05/31/2015 F[facility] Christy Diagnosis Active 2015-05-31 00:01:00 2015-06-16 12:29:00 M lydiaphyllis Stone ICD NOT GIVEN / CPT 55280 [id number] ICD NOT GIVEN / CPT 36678 [id number] 33249 Active 12/04/2012 [facility] Ac tive 2012-12-04 00:00:00 2012-12-11 09:31:00 M zeinabsarahphyllis Stone STONE 592.0 592.1/CPT 41415 17961 STONE 592.0 592.1/CPT 16600 63029 Active 12/03/2012 [facility] Active 12-03 00:00:00 2012-12-04 09:25:00 [facility] Fever Fever Problem Active [facility] Pneumonia Pneumonia Problem Active [facility] Pyelonephritis Pyelonephritis Problem Active [facility] Hydronephrosis Hydronephrosis Problem Active [facility] Renal insufficiency Renal insufficiency Problem Active [facility] Calculus of ureter Ureterolithiasis Problem Active [facility] Acute pyelonephritis Problem Active [facility] Dehydration Problem Active [facility] Chronic renal failure Problem Active [facility] Hyperglycemia Problem Active [facility] Diabetes mellitus Problem Active [facility] Incomplete rotator cuff tear or rupture of right shoulder, not specified as traumatic Incomplete rotat or cuff tear or rupture of right shoulder, not specified as traumatic 09/02/2018 FIONA Ritter Problem 2018-09-02 11:20:31 [facility] Bicipital tendinitis, right shoulder Bicipital tendinitis, right shoulder 09/02/2018 FIONA Ritter Problem 2018-09-02 11:20:31 [facility] Effusion, left knee Effu altagracia, left knee 09/02/2018 [facility] Stone Problem 2018-09-02 11:20:31 [facility] Pain in left knee Pain in left knee 09/02/2018 [facility] Problem 2018-09-02 11:20:31 [facility] Strain of muscle, fascia and tendon of l jigna head of biceps, right arm, initial encounter Strain of muscle , fascia and tendon of long head of biceps, right arm, initial encounter 10/06/2018 [facility] Problem 2018-10-06 14:18:02 [facility] Other synovitis and tenosynovitis, right shoulder Other synovitis and tenosynovitis, right shoulder 10/06/2018 [facility] Problem 2018-10-06 14:18:02 [facility] Loose body in right shoulder L oose body in right shoulder 10/06/2018 [facility] Problem 2018-10-06 14:1 8:02 [facility] Primary osteoarthritis, right shoulder Primary osteoarthritis, right shoulder 10/06/2018 [facility] Problem 2018-10-06 14:18:02 [facility] Morbid (severe) obesity due to excess calories Morbid (severe) obesity due to excess calories 10/06/2018 [facility] 2018-10-06 14:18:02 [facility] Body mass index (BMI) 50-59.9 , adult Body mass index (BMI) 50-59.9 , adult 10/06/2018 [facility] 2018-10-06 14:18:02 [facility] Essential (primary) hypertension Essential (primary) hypertension 10/06/2018 [facility] Problem 2018-10-06 14:18:02 [facility] Gastro-esophageal reflux disease without esophagitis Gastro-esophageal reflux disease without esophagitis 10/06/2018 [facility] 2018-10-06 14:18:02 [facility] Type 2 diabetes mellitus without complications Type 2 diabetes mellitus without complications 10/06/2018 [facility] 2018-10-06 14:18:02 [facility] custodial (current) use of aspirin custodial (current) use of aspirin 10/06/2018 [facility] 2018-09-09 0 14:18:02 [facility] 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 (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 (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 10/06/2018 [facility] Problem 2018-10-06 14:18:02 [facility] Chest pain Ches t pain Resolved Problem 12/18/2012 27/13 Dx as acid reflux [facility] Problem Resolved 2012-12-18 02: 08:29 [facility] Poor peripheral circulation Po or peripheral circulation Resolved Problem 12/18/2012 3swelling to LE [facility] Problem Resolved 2012-12-18 02:08:29 Jyoti Ritter Backache (finding) Back ache (finding) Resolved Problem 10/06/2018 lumbar FIONA Ritter, [facility] [place],[facility], [facility] Problem Resolved 2018-10-06 14:18:02 Jyoti Ritter Chest pain (finding) Ches t pain (finding) Resolved Problem 10/06/2018 7/13 Dx as acid reflux FIONA Ritter, [facility] [place],[facility], [facility] Problem Resolved 2018-10-06 14:18:02 Jyoti Stone Poor peripheral circulation (disorder) Poor peripheral circulation (disorder) Resolved Problem 10/06/2018 swelling to LE FIONA Ritter, [facility] [place],[facility], [facility] Problem Resolved 2018-10-06 14:18:02 Jyoti Ritter Kidney stone (disorder) Kidn ey stone (disorder) Resolved Problem 10/06/2018 FIONA Ritter, [facility] [place],[facility] Problem Resolved 2018-10-06 14:18:02 Jyoti Ritter Retained ureteric stent (disorder) Retained ureteric stent (disorder) Resolved Problem 10/06/2018 left FIONA Ritter, FIONA Christy,[facility] [place] Problem Resolved 2018-10-06 14:18:0 2 Jyoti Ritter Acid reflux Acid reflux Active Problem 12/18/2012 [facility] Problem Active 2012-12-18 02:08:29 Sd moriphyllis Ritter Back pain Back pain Active Problem 12/18/2012 1lumbar [facility] Problem Active 2012-12-18 02:08:29 Jyoti Ritter Foot swelling Foot swelling Active Problem 12/18/2012 [facility] Problem Active 2012-12-18 02:08:29 Jyoti Ritter GERD - Gastro-esophageal reflux disease GERD - Gastro- esophageal reflux disease Active Problem 12/18/2012 [facility] Problem A ctive 2012-12-18 02:08:29 Jyoti ulysses HTN - Hypertension HTN - Hypertension Active Problem 12/18/2012 [facility] Problem Active 2012-12-18 02:08:29 Jyoti Ritter Obese Obes e Active Problem 12/18/2012 [facility] Problem Active 2012-12-18 02:08:29 [facility] Renal stone Kusmu l stone Active Problem 12/18/2012 [facility] Problem Active 2012-12-18 02:08:29 Sd benito Ritter Retained ureteral stent Vandana ined ureteral stent Active Problem 12/18/2012 4left [facility] Problem Active 2012-12-18 02:0 8:29 [facility] Sleep apnea Slee p apnea Active Problem 12/18/2012 5uses CPAP [facility] Problem Active 2012-12-18 02:08:29 [facility] Gastroesophageal reflux disease (disorder) Gastroesophageal reflux disease (disorder) Active Problem 10/06/2018 FIONA Ritter, [facility] [place],[facility], [facility] Problem Active 2018-10-06 14:18:02 [facility] Foot swelling (finding) Foot swelling (finding) Active Problem 10/06/2018 FIONA Ritter, [facility] [place],[facility], [facility] Problem Active 2018-10-06 14:18:02 [facility] Hypertensive disorder, systemic arterial (disorder) Hypertensive disorder, systemic arterial (disorder) Active Problem 10/06/2018 FIONA Ritter, [facility] [place],[facility], [facility] Problem A ctive 2018-10-06 14:18:02 [facility] Injury of superior glenoid labrum of shoulder joint (d isorder) Injury of superior glenoid labrum of shoulder joint (disorder) Active Problem 10/06/2018 FIONA Ritter,[facility], [facility] Problem Active 2018-10-06 14:18:02 [facility] Obese (finding) Obes e (finding) Active Problem 10/06/2018 FIONA Ritter, [facility] [place],[facility], [facility] Problem A ctive 2018-10-06 14:18:02 [facility] Sleep apnea (finding) Slee p apnea (finding) Active Problem 10/06/2018 uses CPAP FIONA Ritter, [facility] [place],[facility] [place] Problem Active 2018-10-06 14:18:02 Misael Ritter Superior [...] 00:00:00 Jose Luis starkey Penicillins DA Active [place] 2013-12-14 00:00:00 [facility] Penicillin Allergy to substance Active Mild RASH 2012-04-09 00:00:00 [facility] penicillins penicillins Active [facility] Family History Family Member Diagnosis Comments Start Date Stop Date Source Maternal grandmother Diabetes [facility] Natural mother Diabetes [facility] Social History Social Habit Start Date Stop Date Quantity Comments Source History SDOH Alcohol Std Drinks [place] [facility] History SDOH Alcohol Binge [facility] Sex Assigned At Jon[facility] Alcohol intake 2018-10-15 00:00:00 2018-10-15 00:00:00 [facility] Frequency 2018-10-09 00:00:00 2018-10-09 00:00:0 0 1 [facility] Social History 2015-06-17 04:59:00 2015-06-17 04:59:00 Jyoti [...] 2019-11-02 21:13:00 Yes 500 Every 12 Hours [facility] Acetaminophen With Codeine (Tylenol With Codeine #3 Ta blet) 1 Each TABLET Acetaminophen With Codeine (Tylenol With Codeine #3 Tablet) 1 Each TABLET 2019-04-01 12:56:00 Yes 300 Every 4 Hours for Pain [facility] Levofloxacin (Levaquin) 750 Mg TABLET Levofloxacin (Levaquin ) 750 Mg TABLET 2019-04-01 12:56:00 Yes 750 Daily [facility] Ondansetron Hcl (Zofran*) 4 Mg TABLET Ondansetron Hcl (Zofra n*) 4 Mg TABLET 2019-04-01 12:56:00 Yes 4 Every 6 Hours as n eeded for Nausea [facility] Tamsulosin Hcl (Flomax*) 0.4 Mg CAP Tamsulosin Hcl (Flomax*) 0.4 Mg CAP 2019-04-01 12:56:00 Yes .4 Daily [facility] dapagliflozin (FARXIGA) 5 mg tablet [...] 20 mg by mouth daily. Jose Luis Meija meclizine (ANTIVERT) 25 mg tablet 2018-10-14 16:19:34 Ye s 25mg [id number] Take 25 mg by mouth 3 (three) times a da y as needed for dizziness. Jose Luis Willams complex with C#20-folic acid 1 mg capsule 2018-10-14 16:19:34 Yes QD Take by mouth daily. Jose Luis alexandra glucosam/chond/collagen/hyalur ([id number]-HYALUR AC ORAL) 2018-10-14 16:19:34 Yes Take by mouth. Jose Luis Mejia Ketorolac 2018-03-19 18:00:00 No 15 mg, Route: IVP, Q6H, Dosing Weight 175, kg, Start date: 03/19/18 12:00:00 [employer]MER TAILER, Duration: 6 doses or times, Stop date: 03/20/18 18:00:00 [employer]MER TAILER Daniel Ritter Phenergan 2018-03-19 16:02:00 No 25 mg, Route: IVPB, Q4H, Dosing Weight 175, kg, PRN Nausea & Vomiting, Start date: 03/19/18 10:02:00 [employer]MER TAILER, Duration: 30 day, Stop date: 04/18/18 10:01:00 TRIMMER TAILER [facility] Zofran 2018-03-19 16:02:00 No 4 mg, Route: IV, Drug form: INJ, Q4H, Dosing Weight 175, kg, PRN Nausea, Start date: 03/19/18 10:02:00 TRIMMER TAILER, Duration: 30 day, Stop date: 04/18/18 10:01:00 TRIMMER TAILER [facility] Morphine 2018-03-19 16:02:00 No 2 mg, Route: IVP, Q3H, Dosing Weight 175, kg, PRN Pain Score 1-3, Start date: 03/19/18 10:02:00 TRIMMER TAILER, Duration: 30 day, Stop date: 04/18/18 10:01:00 [facility] Tramadol 2018-03-19 16:02:00 No 50 mg, Route: PO, Drug form: TAB, Q6H, Dosing Weight 175, kg, PRN Pain Score 1-3, Start date: 03/19/18 10:02:00 TRIMMER TAILER, Duration: 30 day, Stop date: 04/18/18 10:01:00 [facility] Hydromorphone 2018-03-19 16:02:00 No 0.3 mg, Route: IVP, Q3H, Dosing Weight 175, kg, PRN Pain Score 4-6, Start date: 03/19/18 10:02:00 TRIMMER TAILER, Duration: 30 day, Stop date: 04/18/18 10:01:00 TRIMMER TAIL[facility] Acetaminophen 325 MG / Hydrocodone Bitartrate 5 MG Oral Tabl et 2018-03-19 16:02:00 No Route: PO, Dosing Weight 175, kg, Q4H, PRN Pain Score 4-6, Start date: 03/19/18 10:02:00 TRIMMER TAILER, Duration: 30 day, Stop date: 04/18/18 10:01:00 TRIMMER TA[facility] ceFAZolin ([facility]) 2018-03-19 14:57:00 No Route: IV, Drug form: INJ, ONCE, Stop date: 03/19/18 8:57:00 TRIMMER TAILER Sd benito Ritter neostigmine ([facility]) 2018-03-19 14:57:00 No Route: IV, Drug form: INJ, ONCE, Stop date: 03/19/18 8:57:00 TRIMMER TAILER Sd benito Ritter glycopyrrolate ([facility]) 2018-03-19 14:57:00 No Route: IV, Drug form: INJ, ONCE, Stop date: 03/19/18 8:57:00 TRIMMER TAILER [facility] propofol ([facility]) 2018-03-19 14:57:00 No Route: IV, Drug form: INJ, ONCE, Stop date: 03/19/18 8:57:00 [facility] rocuronium ([facility]) 2018-03-19 14:57:00 No Route: IV, Drug form: INJ, ONCE, Stop date: 03/19/18 8:57:00 [facility] famotidine ([facility]) 2018-03-19 14:57:00 No Route: IV, Drug form: INJ, ONCE, Stop date: 03/19/18 8:57:00 TRIMMER TAILER Sd benito Ritter acetaminophen ([facility]) 2018-03-19 14:57:00 No Route: IV, Drug form: INJ, ONCE, Stop date: 03/19/18 8:57:00 [facility]) 2018-03-19 14:57:00 No Route: IV, Drug form: INJ, ONCE, Stop date: 03/19/18 8:57:00 TRIMMER TAILER Jyoti Ritter ondansetron (ANES) 2018-03-19 14:57:00 No Route: IV, Drug form: INJ, ONCE, Stop date: 03/19/18 8:57:00 TRIMMER TAILER Sd benito Ritter vancomycin (ANES) 2018-03-19 14:57:00 No Route: IV, Drug form: INJ, ONCE, Stop date: 03/19/18 8:57:00 TRIMMER TAILER Sd benito Ritter lidocaine (ANES) 2018-03-19 14:57:00 No Route: IV, Drug form: INJ, ONCE, Stop date: 03/19/18 8:57:00 TRIMMER TAILER Sd benito Ritter Naloxone 2018-03-19 14:33:00 No 0.04 mg, Route: IVP, Q2MIN, Dosing Weight 175, kg, PRN Narcotic Reversal, Start date: 03/19/18 8:33:00 TRIMMER TAILER, Duration: 30 day, Stop date: 04/18/18 8:32:00 TRIMMER TAILER Jyoti Ritter Lactated Ringers IV 1000 mL 2018-03-19 14:33:00 No 1,000 mL, Rate: 100 ml/hr, Infuse over: 10 hr, Route: IV, Dosing Weight 175 kg, Total Volume: 1,000, Start date: 03/19/18 8:33:00 TRIMMER TAILER, Duration: 30 day, Stop date: 04/18/18 8:32:00 TRIMMER TAILER, 3.03, m2 [facility] Lactated Ringers Injection IV (ANES) 1000 mL 2018-03-19 13:53:00 No Route: IV, Total Volume: 1,000, Start date: 03/19/18 7:53:00 TRIMMER TAILER, Stop date: 03/19/18 8:53:00 TRIMMER TAILER [facility] Calcium Chloride 0.0014 MEQ/ML / Potassi um Chloride 0.004 MEQ/ML / Sodium Chloride 0.103 MEQ/ML / Sodium Lactate 0.028 MEQ/ML Injectable Solution 2018-03-19 12:56:00 No 1,000 mL, Rate: 25 ml/hr, Infuse over: 40 hr, Route: IV, Dosing Weight 175 kg, Total Volume: 1,000, Start date: 03/19/18 6:56:00 TRIMMER TAILER, Duration: 30 day, Stop date: 04/18/18 6:55:00 TRIMMER TAILER, 3.03, m2 Jyoti Ritter clindamycin 300 mg [...] 1 tab, PO, Bedtime, 0 Refill(s) Jyoti [place] pantoprazole 40 mg oral enteric coated tablet 2018-03-13 21:55:0 0 Yes 40 mg = 1 tab, PO, Daily, 0 Refill(s) Jyoti Gagnonann Amlodipine 5 MG / valsartan 320 MG Oral Tablet 2018-03-13 21:55: 00 Yes 1 tab, PO, Daily, # 30 tab, 0 Refill(s) Jyoti [place] Glucosamine Chondroitin 2018-03-13 21:54:00 Yes PO, Daily, 0 Refill(s) Jyoti Ritter Super B Complex oral tablet 2018-03-13 21:54:00 Yes PO, Daily, 0 Refill(s) Jyoti [place] dapagliflozin propanediol 10 MG Oral Tablet [Farxiga] 2018-03-13 21:54:00 Yes 10 mg = 1 tab, PO, Daily, 0 Refill(s) Jyoti [place] ketorolac 2012-12-11 23:00:00 No Baldev Nicolas 15 mg, 1 mL, Route: IVP, Drug form: INJ, Q6H, Dosing Weight 193.182, kg, Start date: 12/11/12 18:00:00, Duration: 6 doses or times, Stop date: 12/13/12 0:00:00 Jyoti Stone Lactated Ringers Injection IV 1000 mL 2012-12-11 18:42:00 No Shruthi Prado 1,000 mL, Rate: 50 m l/hr, Infuse over: 20 hr, Route: IV, Dosing Weight 193.182 kg, Total Volume: 1,000, Start date: 12/11/12 13:42:00, Duration: 30 day, Stop date: 01/10/13 13:41:00 Elizabeth ferguson [place] acetaminophen-hydrocodone 325 mg-5 mg oral tablet 18:42:00 No Shruthi Leung Maxian 1 tab, Route: PO , Dosing Weight 193.182, kg, Q4H, PRN Pain Score 1-3, Start date: 12/11/12 13:42:00, Duration: 30 day, Stop date: 01/10/13 13:41:00 [facility] naloxone 2012-12-11 18:42:00 No Shruthi Leung Maxian 0.04 mg, Route: IVP, Q2MIN, Dosing Weight 193.182, kg, PRN Narcotic Reversal, Start date: 12/11/12 13:42:00, Duration: 8 doses or times, Stop date: Limited # of times [facility] ondansetron 2012-12-11 18:42:00 No Shruthi Leung Maxian 4 mg, Route: IVP, ONCE, Dosing Weight 193.182, kg, PRN Nausea & Vomiting, Start date: 12/11/12 13:42:00 [facility] hydromorphone 2012-12-11 18:42:00 No Shruthi Leung Maxian 0.5 mg, Route: IVP, Q5Min, Dosing Weight 193.182, kg, PRN Pain Score 7-10, Start date: 12/11/12 13:42:00, Duration: 5 doses or times, Stop date: Limited # of times [facility] fentanyl 2012-12-11 18:42:00 No Raphael Morales 25 microgram, Route: IVP, Q5Min, Dosing Weight 193.182, kg, PRN Pain Score 4-6, Start date: 12/11/12 13:42:00, Duration: 4 doses or times, Stop date: Limited # of times [facility] flumazenil 2012-12-11 18:42:00 No Shruthi Leung Maxian 0.2 mg, Route: IVP, PRN, Dosing Weight 193.182, kg, PRN Benzodiazepine Reversal, Initial dose, Start date: 12/11/12 13:42:00, Duration: 30 day, Stop date: 01/10/13 12:41:00 [facility] morphine Sulfate 2012-12-11 18:27:00 No Baldev Graciela Nguye n 2 mg, 1 mL, Route: IVP, Drug form: INJ, Q3H, Dosing Weight 193.182, kg, PRN Pain Score 1-3, Start date: 12/11/12 13:27:00, Duration: 30 day, Stop date: 01/10/13 13:26:00 [facility] acetaminophen-hydrocodone 325 mg-10 mg oral tablet 2012-12 18:27:00 No Baldev Owens Nicolas 1 tab, Route: P O, Drug Form: TAB, Dosing Weight 193.182, kg, Q4H, PRN Pain Score 4-6, Start date: 12/11/12 13:27:00, Duration: 30 day, Stop date: 01/10/13 13:26:00 Jyoti kayley gentamicin + Sodium Chloride 0.9% IV 100 mL 2012-12-11 18: 00:00 No Baldev Lizh Nicolas 120 mg, 3 mL, Ro king salmon: IVPB, Drug form: INJ, ONCALL, Dosing Weight 193.182, kg, Start date: 12/11/12 13:00:00, Duration: 30 day, Stop date: 01/10/13 11:59:00 [facility] Levaquin 2012-12-11 18:00:00 No Baldev Graciela Nicolas 500 mg, 100 mL, Route: IV, Drug form: INJ, ONCALL, Dosing Weight 193.182, kg, Start date: 12/11/12 13:00:00 Jyoti Ritter Lactated Ringers Injection IV 1000 mL 2012-12-11 16:27:00 No Yosef Starkey Nick 1,000 mL, Rate: 25 ml/hr, Infuse [...] times, Stop date: Limited # of times [facility] esmolol IV Push 2012-12-04 18:04:00 No Delroy Luque Bake r 10 mg, Route: IVP, Q5Min, Dosing Weight 193.182, kg, PRN Elevated BP, Start date: 12/04/12 13:04:00, Duration: 5 doses or times, Stop date: Limited # of times [facility] hydrALAZINE 2012-12-04 18:04:00 No Delroy Luque Crum 5 mg, Route: IVP, Q5Min, Dosing Weight 193.182, kg, PRN Elevated BP, Start date: 12/04/12 13:04:00, Duration: 4 doses or times, Stop date: Limited # of times [facility] acetaminophen-hydrocodone 325 mg-5 mg oral tablet 18:04:00 No Delroy Crum 1 tab, Route: PO, Dosing Weight 193.182, kg, Q4H, PRN Pain Score 1-3, Start date: 12/04/12 13:04:00, Duration: 30 day, Stop date: 01/03/13 13:03:00 [facility] hydromorphone 2012-12-04 18:04:00 No Delroy Crum 0.5 mg, Route: IVP, Q5Min, Dosing Weight 193.182, kg, PRN Pain Score 7-10, Start date: 12/04/12 13:04:00, Duration: 5 doses or times, Stop date: Limited # of times [facility] ketorolac 2012-12-04 18:04:00 Yes Delroy Crum 30 mg, Route: IVP, ONCE, Dosing Weight 193.182, kg, Start date: 12/04/12 13:04:00, Duration: 1 doses or times, Stop date: 12/04/12 13:04:00 [facility] naloxone 2012-12-04 18:04:00 No Delroy Crum 0.04 mg, Route: IVP, Q2MIN, Dosing Weight 193.182, kg, PRN Narcotic Reversal, Start date: 12/04/12 13:04:00, Duration: 8 doses or times, Stop date: Limited # of times [facility] dexamethasone 2012-12-04 18:04:00 No Delroy Crum 4 mg, Route: IVP, ONCE, Dosing Weight 193.182, kg, PRN Nausea & Vomiting, Start date: 12/04/12 13:04:00 [facility] ondansetron 2012-12-04 18:04:00 No Delroy Crum 4 mg, Route: IVP, ONCE, Dosing Weight 193.182, kg, PRN Nausea & Vomiting, Start date: 12/04/12 13:04:00 [facility] flumazenil 2012-12-04 18:04:00 No Delroy Crum 0.2 mg, Route: IVP, PRN, Dosing Weight 193.182, kg, PRN Benzodiazepine Reversal, Initial dose, Start date: 12/04/12 13:04:00, Duration: 30 day, Stop date: 01/03/13 13:03:00 [facility] morphine Sulfate 2012-12-04 17:57:00 No Baldev Graciela Nguye n 2 mg, Route: IVP, Q3H, Dosing Weight 193.182, kg, PRN Pain Score 1-3, Start date: 12/04/12 12:57:00, Duration: 30 day, Stop date: 01/03/13 12:56:00 [facility] acetaminophen-hydrocodone 325 mg-10 mg oral tablet 2012-11 17:57:00 No Baldev Graciela Nicolas 1 tab, Route: P O, Dosing Weight 193.182, kg, Q4H, PRN Pain Score 4-6, Start date: 12/04/12 12:57:00, Duration: 30 day, Stop date: 01/03/13 12:56:00 [facility] gentamicin 2012-12-04 16:27:00 No Baldev Graciela Nicolas 120 mg, Route: IVPB, ONCE, Dosing Weight 193.182, kg, Start date: 12/04/12 11:27:00, Stop date: 12/04/12 11:27:00 [facility] Levaquin 2012-12-04 16:27:00 No Baldev Graciela Nicolas 500 mg, Route: IVPB, ONCE, Dosing Weight 193.182, kg, Start date: 12/04/12 11:27:00, Stop date: 12/04/12 11:27:00 [facility] Lactated Ringers Injection IV 1000 mL 2012-12-04 16:05:00 No Dentonyuliya Mendez 1,000 mL, Rate: 25 ml/hr, Infuse over: 40 hr, Route: IV, Dosing Weight 193.182 kg, Total Volume: 1,000, Start date: 12/04/12 11:05:00, Duration: 30 day, Stop date: 01/03/13 11:04:00 Sd benito Ritter tamsulosin 0.4 mg oral capsule 2012-12-04 15:20:21 Yes 0.4 mg, 1 cap, PO, Daily, 30 cap, Substitution Allowed, CAP [facility] Zofran 4 mg oral tablet 2012-12-04 15:20:08 Yes PO, PRN, Substitution Allowed [facility] Cipro 2012-12-04 15:19:57 Yes PO, Q12H, Subs titution Allowed [facility] Aspirin Low Dose 81 mg oral tablet 2012-12-04 15:14:56 Yes PO, Daily, Substitution Allowed [facility] arora meloxicam 15 mg oral tablet 2012-12-04 15:14:50 Yes 15 mg, 1 tab, PO, Daily, 30 tab, Substitution Allowed, TAB [facility] hydrochlorothiazide-triamterene 25 mg-37.5 mg oral capsule 2012-12-04 15:14:41 Yes 1 cap, PO, Daily, 30 cap , Substitution Allowed, Maintenance, CAP [facility] amLODipine 5 mg oral tablet 2012-12-04 15:14:13 Yes 5 mg, 1 tab, PO, Daily, 30 tab, Substitution Allowed, TAB [facility] Bystolic 10 mg oral tablet 2012-12-04 15:13:57 Yes 10 mg, 1 tab, PO, Daily, 30 tab, Substitution Allowed, TAB [facility] atorvastatin 20 mg oral tablet 2012-12-04 15:13:45 Yes 20 mg, 1 tab, PO, Daily, 30 tab, Substitution Allowed, TAB [facility] Diovan 320 mg oral tablet 2012-12-04 15:13:33 Yes 320 mg, 1 tab, PO, Daily, 90 tab, Substitution Allowed, TAB [facility] lansoprazole 30 mg oral delayed release capsule 2012-12-04 15:13 :17 Yes 30 mg, 1 cap, PO, Daily, 30 cap, Substitution Allowed [facility] Acetaminophen With Codeine (Tylenol With Codeine #3 Ta blet) 1 Each TABLET Acetaminophen With Codeine (Tylenol With Codeine #3 Tablet) 1 Each TABLET Yes 300 as needed for Mild Pain (1-3) Or Fever>1 00.8 [facility] Amlodipine/Valsartan Amlodipine/Valsartan Yes Daily [facility] Atorvastatin Calcium (Lipitor) 20 Mg TABLET Atorvastat in Calcium (Lipitor) 20 Mg TABLET Yes 20 Daily [facility] Yes 10 Daily [facility] Gluc 2KCL/Chondr/Darrel Hy/Hy Ac (Glucosamine & Chondroi tin Cap) 1 Each CAPSULE Gluc 2KCL/Chondr/Darrel Hy/Hy Ac (Glucosamine & Chondroitin Cap) 1 Each CAPSULE Yes [facility] Meclizine Hcl Meclizine Hcl Yes 25 As Needed [facility] Meloxicam Meloxicam Yes 15 Daily [facility] Metformin Hcl (Metformin Hcl Er) 500 Mg TAB.ER.24 Metf ormin Hcl (Metformin Hcl Er) 500 Mg TAB.ER.24 Yes 1 Bedtime [facility] Nebivolol Hcl (Bystolic) 10 Mg TABLET Nebivolol Hcl (Bystolic) 10 M g TABLET Yes 20 Daily [facility] Pantoprazole Sodium (Protonix) 40 Mg TABLET. Pantopr azole Sodium (Protonix) 40 Mg TABLET. Yes 40 Daily [facility] Triamterene/Hydrochlorothiazid (Triamterene-Hctz 37.5- 25 Mg Cp) 1 Each CAPSULE Triamterene/Hydrochlorothiazid (Triamterene-Hctz 37.5-25 Mg Cp) 1 Each CAPSULE Yes 37.5 Daily [facility] Vitamin B Complex & Vit C No.4 (Super B Complex) 150 M g TABLET Vitamin B Complex & Vit C No.4 (Super B Complex) 150 Mg TABLET Yes [facility] Levofloxacin (Levaquin) 500 Mg TABLET Levofloxacin (Levaquin) 50 0 Mg TABLET 2019-03-17 00:00:00 No 500 Daily [facility] Amlodipine Besylate Amlodipine Besylate 2019-02-16 00:00:00 No 1 Daily [facility] Amlodipine-Valsartan Amlodipine-Valsartan 2019-02-16 00:00:00 No Daily [facility] Levofloxacin (Levaquin) 500 Mg TABLET Levofloxacin (Levaquin) 50 0 Mg TABLET 2018-09-17 00:00:00 No 500 Daily [facility] Meclizine Hcl Meclizine Hcl 2018-09-17 00:00:00 No 25 As Needed [facility] Cephalexin Cephalexin 2018-09-01 00:00:00 No 500 Thr ee Times A Day [facility] Insulin Detemir (Levemir) 100 Unit/1 Ml VIAL Insulin D etemir (Levemir) 100 Unit/1 Ml VIAL 2018-09-01 00:00:00 No 5 Bedtime [facility] Amlodipine/Valsartan (Exforge 5-320 Mg Tablet) 1 Each TABLET Amlodipine/Valsartan (Exforge 5-320 Mg Tablet) 1 Each TABLET 2018-08-13 00:00:00 No [facility] Aspirin Aspirin 2018-08-13 00:00:00 No 81 Daily [facility] Farxiga Farxiga 2018-08-13 00:00:00 No [facility] Meclizine Hcl Meclizine Hcl 2018-08-13 00:00:00 No 25 Three Times A Day as needed for Dizziness [facility] Metformin Hcl Metformin Hcl 2018-08-13 00:00:00 No 500 Bedtime [facility] Pantoprazole Sodium (Protonix) 40 Mg TABLET. Pantopr azole Sodium (Protonix) 40 Mg TABLET. 2018-08-13 00:00:00 No 40 Daily [facility] Triamterene/Hydrochlorothiazid (Triamterene-Hctz 37.5- 25 Mg Cp) 1 Each CAPSULE Triamterene/Hydrochlorothiazid (Triamterene-Hctz 37.5-25 Mg Cp) 1 Each CAPSULE 2018-08-13 00:00:00 No 1 Daily [facility] Amlodipine Besylate Amlodipine Besylate 2017-09-01 00:00:00 No 5 Daily [facility] Dapagliflozin Dapagliflozin 2017-09-01 00:00:00 No 10 Daily [facility] Levofloxacin (Levaquin) 500 Mg TABLET Levofloxacin (Levaquin) 50 0 Mg TABLET 2017-09-01 00:00:00 No 500 Daily [facility] Invokana Invokana 2017-07-08 00:00:00 No 300 Daily [facility] Lansoprazole Lansoprazole 2017-07-08 00:00:00 No 30 Daily [facility] Valsartan (Diovan) 80 Mg TAB Valsartan (Diovan) 80 Mg TAB 2017-07-08 00:00:00 No 320 Daily [facility] Furosemide (Lasix) 40 Mg TABLET Furosemide (Lasix) 40 Mg TABLET 2015-07-06 00:00:00 No 40 Daily as needed [facility] Vital Signs Vital Name Observation Time Observation Value Comments Source Weight 2019-11-02 19:37:00 375 [lb_av] [facility] BMI (Body Mass Index) 2019-11-02 19:37:00 52.3 kg/m2 [facility] Weight 2019-08-11 09:51:00 400 [lb_av] [facility] BMI (Body Mass Index) 2019-08-11 09:51:00 55.8 kg/m2 [facility] Body Temperature 2019-03-19 06:26:00 98.5 [degF] [facility] Systolic (mm Hg) 2018-03-19 16:30:00 [facility] Stone Diastolic (mm Hg) 2018-03-19 16:30:00 Mem o[facility] Stone Systolic (mm Hg) 2018-03-19 15:45:00 [facility] Diastolic (mm Hg) 2018-03-19 15:45:00 Mem [facility] [place] Systolic (mm Hg) 2018-03-19 15:30:00 [facility] Diastolic (mm Hg) 2018-03-19 15:30:00 [facility] [place] Respitory Rate 2018-03-19 15:30:00 [facility] Respitory Rate 2018-03-19 15:15:00 [facility] [place] Respitory Rate 2018-03-19 15:00:00 [facility] Heart Rate 2018-03-19 14:51:00 [facility] [place] Heart Rate 2018-03-19 12:57:00 [facility] [place] Temperature Oral (F) 2018-03-13 22:00:00 97.9 F [facility] [place] Heart Rate 2018-03-13 22:00:00 [facility] Height 2018-03-13 21:50:00 182.88 cm [facility] [place] Weight 2018-03-13 21:50:00 [facility] [place] BMI Calculated 2018-03-13 21:50:00 [facility] Systolic (mm Hg) 2012-12-11 19:38:00 [facility] Diastolic (mm Hg) 2012-12-11 19:38:00 [facility] [place] Diastolic (mm Hg) 2012-12-11 19:15:00 Mem [facility] Systolic (mm Hg) 2012-12-11 19:15:00 [facility] Respitory Rate 2012-12-11 19:15:00 [facility] [place] Systolic (mm Hg) 2012-12-11 19:00:00 [facility] Diastolic (mm Hg) 2012-12-11 19:00:00 Mem [facility] Respitory Rate 2012-12-11 19:00:00 [facility] [place] Respitory Rate 2012-12-11 18:45:00 [facility] [place] Heart Rate 2012-12-11 15:30:00 [facility] [place] Temperature Oral (F) 2012-12-09 18:48:00 98.3 F [facility] [place] Heart Rate 2012-12-09 18:48:00 [facility] [place] Height 2012-12-09 18:31:00 177.8 cm [facility] Weight 2012-12-09 18:31:00 [facility] Diastolic (mm Hg) 2012-12-04 19:00:00 [facility] [place] Systolic (mm Hg) 2012-12-04 19:00:00 Misael [facility] [place] Respitory Rate 2012-12-04 18:45:00 [facility] [place] Systolic (mm Hg) 2012-12-04 18:45:00 [facility] Diastolic (mm Hg) 2012-12-04 18:45:00 Mem [facility] [place] Systolic (mm Hg) 2012-12-04 18:30:00 [facility] [place] Diastolic (mm Hg) 2012-12-04 18:30:00 [facility] [place] Respitory Rate 2012-12-04 18:30:00 [facility] [place] Respitory Rate 2012-12-04 18:15:00 [facility] [place] Heart Rate 2012-12-04 14:51:00 [facility] [place] Temperature Oral (F) 2012-12-04 14:51:00 98.3 F [facility] Stone Weight 2012-12-04 14:48:00 [facility] Stone Height 2012-12-04 14:48:00 177.8 cm [facility] Procedures Procedure Date / Time Performed Performing Clinician [facility] e CT of abdomen and pelvis without contrast 2019-08-11 00:00:00 [facility] X-ray of chest, single view 2019-08-11 00:00:[address] [facility] [address] of abdomen and pelvis without contrast 2019-04-01 00:00:00 [facility] CYSTOURETERO W/LITHOTRIPSY 2019-03-19 00:00:00 [facility] DILATION OF RIGHT URETER WITH INTRALUMINAL DEVICE, ENDO 00:00:00 [facility] DILATION OF LEFT URETER, ENDO 2019-02-17 00:00:00 [facility] FLUOROSCOPY OF KIDNEY, URETER & BLADDER USING L OSM CO NTRAST 2019-02-17 00:00:00 [facility] CT of abdomen and pelvis without contrast 2019-02-16 00:00:00 [facility] Injection procedure for shoulder arthrog bakari or enhanced CT/MRI shoulder arthrography 2018-02-12 16:39:22 [facility] Cystourethroscopy, with insertion of ind welling ureteral stent (eg, [place] or double-J type) 2012-12-11 05:00:00 [facility] Cystourethroscopy, with ureteroscopy and /or pyeloscopy; with removal or manipulation of calculus (ureteral catheterization is included) 2012-12-11 05:00:00 [facility] Transurethral Removal of Obstruction from Ureter and R enal Pelvis 2012-12-11 05:00:00 [facility] Ureteral Catheterization 2012-12-11 05:00:[address] 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 2007-03-10 00:00:00 [facility] Stent placement [facility] Ablation [facility] Cardiac catheterization [facility] Cholecyst[facility] 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 <sup>1</sup> [facility] Lithotripsy [facility] Shoulder joint operations [facility] [place] 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 [facility] Ablation [facility] [place] Arthroplasty of knee [facility] Cardiac catheterization [facility] Cholecystectomy [facility] Stone 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<sup>2</sup> [facility] Lithotripsy [facility] Stent placement [facility] Plan of Care Planned Activity Planned Date Details Comments Source Future Scheduled Test 2019-12-09 00:00:00 INFLUENZA VACCINE [code = INFLUENZA VACCINE] [facility] Scheduled Test 2013 00:00:00 COLONOSCOPY SCREEN ING [code = COLONOSCOPY SCREENING] [facility] Scheduled Test 2013 00:00:00 SHINGLES VACCINES (#1) [code = SHINGLES VACCINES (#1)] [facility] Scheduled Test 1973 00:00:00 DIABETIC FOOT EXAM [code = DIABETIC FOOT EXAM] [facility] Scheduled Test 1973 00:00:00 URINE MICROALBUMIN [code = URINE MICROALBUMIN] [facility] Scheduled Test 1963 00:00:00 DIABETIC RETINAL E YE EXAM [code = DIABETIC RETINAL EYE EXAM] [facility] Instructions Fever - Adult [facility] Instructions Urinary Tract Infection - Men [facility] Encounters Start Date/Time End Date/Time Encounter Type Admission Type Attendi [facility] Care Department Encounter ID Source 2019-11-02 19:20:00 2019-11-02 21:32:00 Departed Emergency Room CHRYSTAL BOCANEGRA [facility] [id number] [facility] 2019-08-11 09:32:00 2019-08-11 14:20:00 Departed Emergency Room 1 NATHAN SALDAÑA [facility] [id number] [facility] 2019-08-05 14:43:00 2019-08-05 14:43:00 Registered Clinic 3 CARLOS COX [facility] [id number] [facility] 2019-04-01 09:21:00 2019-04-01 13:29:00 Departed Emergency Room 1 CHARI EPPS [facility] Center [id number] [facility] 2019-03-20 18:13:00 2019-03-20 21:51:00 Departed Emergency Room 1 NAVARRO CHONG [facility] Center [id number] [facility] 2019-03-19 04:16:00 2019-03-19 04:16:00 Registered Surgical Day Care [facility] Center [id number] [facility] 2019-02-16 13:33:00 2019-02-18 11:05:00 Discharged Inpatient 1 DOMENIC CHAPMAN [facility] Center [id number] [facility] 2019-02-15 09:11:00 2019-02-15 09:11:00 Registered Clinic 3 CARL[facility] Center [id number] [facility] 2018-11-27 10:33:00 2018-11-27 10:33:00 Registered Clinic 3 BESSIESERACARLOS Mortensen [facility] [id number] [facility] 2018-09-18 08:22:00 2018-09-18 08:22:00 Registered Surgical Day Care [facility] [id number] [facility] 2018-09-01 22:28:00 2018-09-03 13:50:00 Discharged Inpatient 1 LIVAN CASTANEDA [facility] [id number] [facility] 2018-09-01 07:43:00 2018-09-01 07:43:00 Registered Surgical Day Car e 3 [facility] [id number] [facility] 2018-08-18 05:00:00 2018-08-18 05:00:00 Registered Surgical Day Car e 3 [facility] [id number] [facility] 2018-07-24 00:25:00 2018-07-24 00:50:00 Departed Emergency Room [facility] [id number] [facility] 2018-05-07 08:00:00 2018-06-05 23:59:00 Outpatient Oliverio Wyatt [id number] 2018-04-07 15:40:00 2018-05-06 23:59:00 Outpatient Oliverio Wyatt [id number] 2018-03-19 06:00:00 2018-03-19 10:46:00 Outpatient Oswald WyattSE MHSE [id number] 2018-02-12 09:10:00 2018-02-12 23:59:00 Outpatient Adrián Wyatt MHOIH MHOIH [id number] 2018-01-06 05:04:00 2018-01-06 05:04:00 Registered Surgical Day Car e 3 [facility] [id number] [facility] 2017-07-09 12:16:00 2017-07-10 12:02:00 Discharged Inpatient ER GISELA CARABALLO [facility] [id number] [facility] 2015-06-16 12:20:00 2015-06-16 23:59:00 Outpatient Bjorn Guerrero [facility] [id number] Results Test Description Test Time Test Comments Results Result Comments Source CT ABDOMEN/PELVIS WO 2019-11-04 10:28:00 [facility] [address] [address] Patient Name: ZAYNAB FLORES MR #: [id number] : 1965 Age/Sex: 54/M Req #: [id number] Adm Physician: Ordered by: CHARI EPPS DO Report #: [id number] Location: ER Room/Bed: Procedure: [id number] CT/CT ABDOMEN/PELVIS WO Exam Date: Exam Time: REPORT STATUS: Signed EXAM: CT Abdomen and Pelvis WITHOUT intravenous contrast INDICATION: Abdominal pain COMPARISON: CT abdomen and pelvis of 08/11/2019 TECHNIQUE: Abdomen and pelvis were scanned utilizing a multidetector helical scanner from the lung base to the pubic symphysis without administration of IV contrast. Coronal and sagittal reformations were obtained. IV CONTRAST: None ORAL CONTRAST: Water COMPLICATIONS: None RADIATION DOSE: Total DLP: 1339 mGy*cm Dose modulation, iterative reconstruction, and/or weight based adjustment of the mA/kV was utilized to reduce the radiation dose to as low as reasonably achievable. FINDINGS: LOWER THORAX: Right middle lobe calcified granuloma. No focal lung base consolidation. HEPATOBILIARY: No focal liver lesion. Status post cholecystectomy. SPLEEN: No splenomegaly. PANCREAS: No focal masses or ductal dilatation. ADRENALS: No adrenal nodules. KIDNEYS/URETERS: Unchanged 5 and 6 mm left lower pole nonobstructive renal calculi and 6 mm right lower pole renal calculus. No hydronephrosis or hydroureter. No solid renal mass lesion. PELVIC ORGANS/BLADDER: Unremarkable. PERITONEUM / RETROPERITONEUM: No free air or fluid. LYMPH NODES: No lymp hadenopathy. VESSELS: Minimal atherosclerotic calcifications. No abdominal aortic aneurysm. GI TRACT: No distention or wall thickening. BONES AND SOFT TISSUES: Unremarkable. IMPRESSION: No acute findings in the abdomen or pelvis. Stable bilateral nonobstructive renal calculi. Signed by: Melissa Quan MD on 11/04/2019 10:33 AM Dictated By: MELISSA QUAN MD 1033 Transcribed By: MICHEAL on 11/04/19 1033 COPY TO: CHARI EPPS DO CXR 2 VIEW - HOPD 2019-11-02 20:59:[address] [address] Patient Name: ZAYNAB FLORES MR #: [id number] : 1965 Age/Sex: 54/M Req #: [id number] Adm Physician: Ordered by: CHRYSTAL BOCANEGRA Report #: [id number] Location: [facility] Room/Bed: Procedure: [id number] HOPD/CXR 2 VIEW - HOPD Exam Date: [...] 11/02/192099 COPY TO: CHRYSTAL BOCANEGRA CT ABDOMEN/PELVIS WO 2019-08-11 11:36:00 [address] [address] Patient Name: ZAYNAB FLORES MR #: [id number] : 1965 Age/Sex: 54/M Req #: [id number] Adm Physician: Ordered by: NATHAN SALDAÑA MD Report #: [id number] Location: ER Room/Bed: Procedure: [id number] CT/CT ABDOMEN/PELVIS WO Exam Date: 08/11/19 Exam [...] MD CHEST SINGLE (NOT PORTABLE) 2019-08-11 11:32:00 [address] [address] Patient Name: ZAYNAB FLORES MR #: [id number] : 1965 Age/Sex: 54/M Req #: [id number] Adm Physician: Ordered by: NATHAN SALDAÑA MD Report #: [id number] Location: ER Room/Bed: Procedure: [id number] DX/CHEST SINGLE (NOT PORTABLE) Exam Date: 08/11/19 [...] focal pneumonia or pulmonary edema. Signed by: Melisas Quan MD on 08/11/2019 11:32 AM Dictated By: MELISSA QUAN MD 1132 Transcribed By: MICHEAL on 08/11/19 1132 COPY TO: NATHAN SALDAÑA MD Blood leukocytes automated count (number/volume) 2019-08-11 09:58:00 Test Item White Blood Count (test code = 6690-2) 8.96 4.8-10.8 [facility] (number/volume)2019-08-11 09:58:00* Test Item Value Reference Range Interpretation Comments Red Blood Count (test code = 789-8) 5.25 4.3-5.7 [facility] measurement (moles/volume)2019-08-11 09:58:00* Test Item Value Reference Range Interpretation Comments Hemoglobin (test code = 38910-4) 13.8 14.0-18.0 [facility] hematocrit (volume fraction)2019-08-11 09:58:00* Test Item Value Reference Range Interpretation Comments Hematocrit (test code = 4544-3) 44.5 38.2-49.6 [facility] eryth[facility] mean corpuscular vigsul9056-06-76 09:58:00* Test Item Value Reference Range Interpretation Comments Mean Corpuscular Volume (test code = 787-2) 84.8 81-99 [facility] mean corpuscular hemoglobin (mass per erythrocyte)2019-08-11 09:58:00* Test Item Value Reference Range Interpretation Comments Mean Corpuscular Hemoglobin (test code = 785-6) 26.3 28-32 [facility] mean corpuscular hemoglobin concentration measurement (mass/volume)2019-08-11 09:58:00* Test Item Value Reference Range Interpretation Comments Mean Corpuscular Hemoglobin Concent (test code = 786-4) 31.0 31-35 [facility] HospitalRDW ErhCv-Hao7798-10-03 09:58:00* Test Item Value Reference Range Interpretation Comments Red Cell Distribution Width (test code = 65300-0) 15.2 11.7 -14.4 [facility] platelet count (count/volume)2019-08-11 09:58:00* Test Item Value Reference Range Interpretation Comments Platelet Count (test code = 777-3) 283 140-360 [facility] segmented neutrophil count as percentage of total xrzwatrurn6197-92-98 09:58:00* Test Item Value Reference Range Interpretation Comments Neutrophils (%) (Auto) (test code = 19381-0) 65.7 38.7-80.0 [facility] lymphocyte count as percentage ot total ddayuqxalf3889-33-89 09:58:00* Test Item Value Reference Range Interpretation Comments Lymphocytes (%) (Auto) (test code = 736-9) 22.0 18.0-39.1 [facility] monocyte count as percentage of total wontfqzpbe6517-07-26 09:58:00* Test Item Value Reference Range Interpretation Comments Monocytes (%) (Auto) (test code = 5905-5) 8.1 4.4-11.3 [facility] eosinophil count as percentage of total rjhcubzdnv5258-31-50 09:58:00* Test Item Value Reference Range Interpretation Comments Eosinophils (%) (Auto) (test code = 713-8) 3.6 0.0-6.0 [facility] basophil count as percentage of total spkjxqgrxf5177-70-52 09:58:00* Test Item Value Reference Range Interpretation Comments Basophils (%) (Auto) (test code = 706-2) 0.3 0.0-1.0 [facility] HospitalFluoroscopic procedure less than one hour imtiidiw1185-12-51 09:58:00* Test Item Value Reference Range Interpretation Comments IM GRANULOCYTES % (test code = IM GRANULOCYTES %) 0.3 0.0- 1.0 [facility] neutrophil count 2019-08-11 09:58:00* Test Item Value Reference Range Interpretation Comments Neutrophils # (Auto) (test code = 751-8) 5.9 2.1-6.9 [facility] lymphocytes count (number/volume) 2019-08-11 09:58:00* Test Item Value Reference Range Interpretation Comments Lymphocytes # (Auto) (test code = 78222-6) 2.0 1.0-3.2 [facility] monocytes automated count (number/volume)2019-08-11 09:58:00* Test Item Value Reference Range Interpretation Comments Monocytes # (Auto) (test code = 742-7) 0.7 0.2-0.8 [facility] blood eosinophil count 2019-08-11 09:58:00* Test Item Value Reference Range Interpretation Comments Eosinophils # (Auto) (test code = 711-2) 0.3 0.0-0.4 [facility]Autom[facility] blood basophil count (count/volume)2019-08-11 09:58:00* Test Item Value Reference Range Interpretation Comments Basophils # (Auto) (test code = 704-7) 0.0 0.0-0.1 [facility] HospitalFluoroscopic procedure less than one hour viprxsmo1291-44-99 09:58:00* Test Item Value Reference Range Interpretation Comments Absolute Immature Granulocyte (auto (chel t code = Absolute Immature Granulocyte (auto) 0.03 0-0.1 [facility] HospitalProthrombin time (PT) in platelet poor plasma by coagulation xydmg4287-27-26 09:58:00* Test Item Value Reference Range Interpretation Comments Prothrombin Time (test code = 5902-2) 12.2 11.9-14.5 [facility] HospitalINR in Platelet poor plasma by Coagulation ytipm7500-38-64 09:58:00* Test Item Value Reference Range Interpretation Comments Prothromb Time International Ratio (test code = 6301-6) 0.86 Oral Anticoagulant Therapy INR Values:1. Low Intensity Therapy 1.5 - 2.02 . Moderate Intensity Therapy 2.0 - 3.03. High Intensity Therapy(1) 2.5 - 3. 54. High Intensity Therapy(2) 3.0 - 4.05. Panic Value INR > 5.0 [facility] HospitalActivated partial thromboplastin time (aPTT) in platelet poor plasma by coagulation xrvuh9135-50-64 09:58:00* Test Item Value Reference Range Interpretation Comments Activated Partial Thromboplast Time (test code = 13607-1) 31.2 23.8-35.5 [facility] HospitalUrine color xtwosxrxerkph4313-70-33 09:58:00* Test Item Value Reference Range Interpretation Comments Urine Color (test code = 5778-6) YELLOW YELLOW [facility] HospitalUrine kkugpsk2675-29-68 09:58:00* Test Item Value Reference Range Interpretation Comments Urine Clarity (test code = 36567-4) CLOUDY CLEAR [facility] [facility] 2019-08-11 09:58:00* Test Item Value Reference Range Interpretation Comments Urine Specific Rand (test code = 5811-5) 1.020 1.010-1.02 5 [facility] measurement by automated test xxorb1622-31-58 09:58:00* Test Item Value Reference Range Interpretation Comments Urine pH (test code = 13828-8) 5.5 5-7 [facility] HospitalU[facility] leukocyte esterase detection by rtauupim5686-84-97 09:58:00* Test Item Value Reference Range Interpretation Comments Urine Leukocyte Esterase (test code = 5799-2) MODERATE NEGATIVE [facility] HospitalUrine nitrite vgobdwmex0033-59-52 09:58:00* Test Item Value Reference Range Interpretation Comments Urine Nitrite (test code = 60569-1) NEGATIVE NEGATIVE [facility] HospitalU[facility] protein measurement by test strip (mass/volume)2019-08-11 09:58:00* Test Item Value Reference Range Interpretation Comments Urine Protein (test code = 5804-0) 2+ NEGATIVE [facility] HospitalU[facility] glucose ghcxoifmm3443-80-55 09:58:00* Test Item Value Reference Range Interpretation Comments Urine Glucose (UA) (test code = 2349-9) 2+ NEGATIVE [facility] HospitalUrine ketones detection by automated test rnuoy6064-17-52 09:58:00* Test Item Value Reference Range Interpretation Comments Urine Ketones (test code = 23937-3) NEGATIVE NEGATIVE [facility] HospitalUrine urobilinogen measurement by test strip (mass/volume)2019-08-11 09:58:00* Test Item Value Reference Range Interpretation Comments Urine Urobilinogen (test code = 11626-4) 0.2 0.2-1 [facility] HospitalUrine total bilirubin measurement (mass/volume)2019-08-11 09:58:00* Test Item Value Reference Range Interpretation Comments Urine Bilirubin (test code = 1978-6) NEGATIVE NEGATIVE [facility] HospitalUrine erythrocytes mddlnqtkj3088-06-97 09:58:00* Test Item Value Reference Range Interpretation Comments Urine Blood (test code = 51226-8) MODERATE NEGATIVE [facility] HospitalAutomated urine sediment leukocyte count by microscopy (number/high power field)2019-08-11 09:58:00* Test Item Value Reference Range Interpretation Comments Urine WBC (test code = 5821-4) 21-50 0-5 [facility] HospitalErythrocytes detection in urine sediment by light acgpqeiuqs5617-75-68 09:58:00* Test Item Value Reference Range Interpretation Comments Urine RBC (test code = 71927-4) >50 0-5 [facility] HospitalBacteria detection in urine sediment by light dzgcafzeff8472-19-06 09:58:00* Test Item Value Reference Range Interpretation Comments Urine Bacteria (test code = 10539-8) FEW NONE [facility] HospitalEpithelial cells detection in urine sediment by light ncjlzlqwrd0326-58-63 09:58:00* Test Item Value Reference Range Interpretation Comments Urine Epithelial Cells (test code = 84236-3) FEW NONE [facility] sodium measurement (moles/volume)2019-08-11 09:58:00* Test Item Value Reference Range Interpretation Comments Sodium Level (test code = 2951-2) 142 136-145 [facility] or plasma potassium measurement (moles/volume)2019-08-11 09:58:00* Test Item Value Reference Range Interpretation Comments Potassium Level (test code = 2823-3) 3.6 3.5-5.1 [facility] or plasma chloride measurement (moles/volume)2019-08-11 09:58:00* Test Item Value Reference Range Interpretation Comments Chloride Level (test code = 2075-0) 105 98-107 [facility] or plasma carbon dioxide, total measurement (moles/volume)2019-08-11 09:58:00* Test Item Value Reference Range Interpretation Comments Carbon Dioxide Level (test code = 2028-9) 24 22-29 [facility]er[facility] or plasma anion jqu9152-02-99 09:58:00* Test Item Value Reference Range Interpretation Comments Anion Gap (test code = 05838-7) 16.6 8-16 [facility] or plasma urea nitrogen measurement (mass/volume)2019-08-11 09:58:00* Test Item Value Reference Range Interpretation Comments Blood Urea Nitrogen (test code = 3094-0) 19 7-26 [facility] or plasma creatinine measurement (mass/volume)2019-08-11 09:58:00* Test Item Value Reference Range Interpretation Comments Creatinine (test code = 2160-0) 1.66 0.72-1.25 [facility] or plasma urea nitrogen/creatinine mass zlosd0959-95-17 09:58:00* Test Item Value Reference Range Interpretation Comments BUN/Creatinine Ratio (test code = 3097-3) 11 6-25 [facility] HospitalEstimated glomerular filtration rate (GFR) sxkzixzooybae0530-91-68 09:58:00* Test Item Value Reference Range Interpretation Comments Estimat Glomerular Filtration Rate (test code = 116328972) 43 >60 Ranges were taken from the National Kidney Disease Education Program and the [facility] literature.Reference ranges:60 or greater: Twjbpl33-83 ( for 3 consecutive months): Chronic kidney disease 15 or less: Kidney failureColumb[facility] HospitalGlucose rdnrsdzjfcc8470-66-35 09:58:00* Test Item Value Reference Range Interpretation Comments Glucose Level (test code = MWI2691) 140 74-118 [facility] or plasma calcium measurement (mass/volume)2019-08-11 09:58:00* Test Item Value Reference Range Interpretation Comments Calcium Level (test code = 88267-2) 10.0 8.4-10.2 [facility] or plasma magnesium measurement (mass/volume)2019-08-11 09:58:00* Test Item Value Reference Range Interpretation Comments Magnesium Level (test code = 68176-5) 1.8 1.3-2.1 [facility] or plasma total bilirubin measurement (mass/volume)2019-08-11 09:58:00* Test Item Value Reference Range Interpretation Comments Total Bilirubin (test code = 1975-2) 0.9 0.2-1.2 [facility] HospitalFluoroscopic procedure less than one hour ftweskjp8399-91-04 09:58:00* Test Item Value Reference Range Interpretation Comments Aspartate Amino Transf (AST/SGOT) (test code = Aspartate Amino Transf (AST/SGOT)) 18 5-34 [facility] or plasma alanine aminotransferase measurement (enzymatic activity/volume)2019-08-11 09:58:00* Test Item Value Reference Range Interpretation Comments Alanine Aminotransferase (ALT/SGPT) (test code = 1742-6) 19 0-55 [facility] or plasma protein measurement (mass/volume)2019-08-11 09:58:00* Test Item Value Reference Range Interpretation Comments Total Protein (test code = 2885-2) 8.2 6.5-8.1 [facility] or plasma albumin measurement (mass/volume)2019-08-11 09:58:00* Test Item Value Reference Range Interpretation Comments Albumin (test code = 1751-7) 4.3 3.5-5.0 [facility] HospitalPlasma globulin measurement (mass/volume) 2019-08-11 09:58:00* Test Item Value Reference Range Interpretation Comments Globulin (test code = 67711-2) 3.9 2.3-3.5 [facility] or plasma albumin/globulin mass cepxu1514-01-24 09:58:00* Test Item Value Reference Range Interpretation Comments Albumin/Globulin Ratio (test code = 1759-0) 1.1 0.8-2.0 [facility] or plasma alkaline phosphatase measurement (enzymatic activity/volume)2019-08-11 09:58:00* Test Item Value Reference Range Interpretation Comments Alkaline Phosphatase (test code = 6768-6) 94 40-150 [facility] HospitalBNP Zlw-oEhq8631-51-03 09:58:00* Test Item Value Reference Range Interpretation Comments B-Type Natriuretic Peptide (test code = 12651-8) 13.1 0-100 [facility] or plasma creatine kinase measurement (enzymatic activity/volume)2019-08-11 09:58:00* Test Item Value Reference Range Interpretation Comments Creatine Kinase (test code = 2157-6) 99 30-200 [facility] or plasma creatine kinase MB measurement (mass/volume)2019-08-11 09:58:00* Test Item Value Reference Range Interpretation Comments Creatine Kinase MB (test code = 85670-5) 1.10 0-5.0 [facility] HospitalTroponin I measurement by highly sensitive enzyme pxhwoqtcecr8841-64-73 09:58:00* Test Item Value Reference Range Interpretation Comments Troponin I (test code = 21397-7) 0.008 0-0.300 [facility] or plasma lipase measurement (enzymatic activity/volume)2019-08-11 09:58:00* Test Item Value Reference Range Interpretation Comments Lipase (test code = 3040-3) 54 8-78 [facility] HospitalBlood leukocytes automated count (number/volume)2019-08-11 09:58:00* Test Item Value Reference Range Interpretation Comments White Blood Count (test code = 6690-2) 8.96 4.8-10.8 [facility] HospitalBlood erythrocytes automated count (number/volume)2019-08-11 09:58:00* Test Item Value Reference Range Interpretation Comments Red Blood Count (test code = 789-8) 5.25 4.3-5.7 [facility] HospitalBlood hemoglobin measurement (moles/volume)2019-08-11 09:58:00* Test Item Value Reference Range Interpretation Comments Hemoglobin (test code = 74559-5) 13.8 14.0-18.0 [facility] HospitalAutomated blood hematocrit (volume fraction)2019-08-11 09:58:00* Test Item Value Reference Range Interpretation Comments Hematocrit (test code = 4544-3) 44.5 38.2-49.6 [facility] HospitalAutomated erythrocyte mean corpuscular kimvoy4893-06-28 09:58:00* Test Item Value Reference Range Interpretation Comments Mean Corpuscular Volume (test code = 787-2) 84.8 81-99 [facility] HospitalAutomated erythrocyte mean corpuscular hemoglobin (mass per erythrocyte)2019-08-11 09:58:00* Test Item Value Reference Range Interpretation Comments Mean Corpuscular Hemoglobin (test code = 785-6) 26.3 28-32 [facility] HospitalAutomated erythrocyte mean corpuscular hemoglobin concentration measurement (mass/volume)2019-08-11 09:58:00* Test Item Value Reference Range Interpretation Comments Mean Corpuscular Hemoglobin Concent (test code = 786-4) 31.0 31-35 [facility] HospitalRDW PlyKe-Enm2401-38-03 09:58:00* Test Item Value Reference Range Interpretation Comments Red Cell Distribution Width (test code = 37780-2) 15.2 11.7 -14.4 [facility] HospitalAutomated blood platelet count (count/volume)2019-08-11 09:58:00* Test Item Value Reference Range Interpretation Comments Platelet Count (test code = 777-3) 283 140-360 [facility] HospitalAutomated blood segmented neutrophil count as percentage of total cgvtdlfqzs1286-35-18 09:58:00* Test Item Value Reference Range Interpretation Comments Neutrophils (%) (Auto) (test code = 21286-8) 65.7 38.7-80.0 [facility] HospitalAutomated blood lymphocyte count as percentage ot total yaagwmcwks3813-88-54 09:58:00* Test Item Value Reference Range Interpretation Comments Lymphocytes (%) (Auto) (test code = 736-9) 22.0 18.0-39.1 [facility] HospitalAutomated blood monocyte count as percentage of total xjkklgnxvh0964-49-71 09:58:00* Test Item Value Reference Range Interpretation Comments Monocytes (%) (Auto) (test code = 5905-5) 8.1 4.4-11.3 [facility] HospitalAutformerly [facility] blood eosinophil count as percentage of total plxsvoyfho3243-20-74 09:58:00* Test Item Value Reference Range Interpretation Comments Eosinophils (%) (Auto) (test code = 713-8) 3.6 0.0-6.0 [facility] HospitalAutomated blood basophil count as percentage of total mikaesnevg1699-07-30 09:58:00* Test Item Value Reference Range Interpretation Comments Basophils (%) (Auto) (test code = 706-2) 0.3 0.0-1.0 [facility] HospitalFluoroscopic procedure less than one hour adolrqru5070-59-72 09:58:00* Test Item Value Reference Range Interpretation Comments IM GRANULOCYTES % (test code = IM GRANULOCYTES %) 0.3 0.0- 1.0 [facility] HospitalAutomated blood neutrophil count 2019-08-11 09:58:00* Test Item Value Reference Range Interpretation Comments Neutrophils # (Auto) (test code = 751-8) 5.9 2.1-6.9 [facility] HospitalBlood lymphocytes count (number/volume) 2019-08-11 09:58:00* Test Item Value Reference Range Interpretation Comments Lymphocytes # (Auto) (test code = 98485-2) 2.0 1.0-3.2 [facility] HospitalBlood monocytes automated count (number/volume)2019-08-11 09:58:00* Test Item Value Reference Range Interpretation Comments Monocytes # (Auto) (test code = 742-7) 0.7 0.2-0.8 [facility] HospitalAutomated blood eosinophil count 2019-08-11 09:58:00* Test Item Value Reference Range Interpretation Comments Eosinophils # (Auto) (test code = 711-2) 0.3 0.0-0.4 [facility] HospitalAutomated blood basophil count (count/volume)2019-08-11 09:58:00* Test Item Value Reference Range Interpretation Comments Basophils # (Auto) (test code = 704-7) 0.0 0.0-0.1 [facility] HospitalFluoroscopic procedure less than one hour jrjbcops1235-89-73 09:58:00* Test Item Value Reference Range Interpretation Comments Absolute Immature Granulocyte (auto (chel t code = Absolute Immature Granulocyte (auto) 0.03 0-0.1 [facility] HospitalProthrombin time (PT) in platelet poor plasma by coagulation fyymm0565-40-94 09:58:00* Test Item Value Reference Range Interpretation Comments Prothrombin Time (test code = 5902-2) 12.2 11.9-14.5 [facility] HospitalINR in Platelet poor plasma by Coagulation cjlrg9818-10-13 09:58:00* Test Item Value Reference Range Interpretation Comments Prothromb Time International Ratio (test code = 6301-6) 0.86 Oral Anticoagulant Therapy INR Values:1. Low Intensity Therapy 1.5 - 2.02 . Moderate Intensity Therapy 2.0 - 3.03. High Intensity Therapy(1) 2.5 - 3. 54. High Intensity Therapy(2) 3.0 - 4.05. Panic Value INR > 5.0 [facility] HospitalActivated partial thromboplastin time (aPTT) in platelet poor plasma by coagulation olcye4035-91-81 09:58:00* Test Item Value Reference Range Interpretation Comments Activated Partial Thromboplast Time (test code = 78113-4) 31.2 23.8-35.5 [facility] HospitalUrine color fktsozrlqgdtr6811-89-15 09:58:00* Test Item Value Reference Range Interpretation Comments Urine Color (test code = 5778-6) YELLOW YELLOW [facility] HospitalUrine syjkmra7596-47-69 09:58:00* Test Item Value Reference Range Interpretation Comments Urine Clarity (test code = 52439-3) CLOUDY CLEAR [facility] by Test strip 2019-08-11 09:58:00* Test Item Value Reference Range Interpretation Comments Urine Specific Rand (test code = 5811-5) 1.020 1.010-1.02 5 [facility] HospitalUrine pH measurement by automated test ublqg6335-75-12 09:58:00* Test Item Value Reference Range Interpretation Comments Urine pH (test code = 43045-1) 5.5 5-7 [facility] HospitalUrine leukocyte esterase detection by eilboqwj2289-68-34 09:58:00* Test Item Value Reference Range Interpretation Comments Urine Leukocyte Esterase (test code = 5799-2) MODERATE NEGATIVE [facility] HospitalUrine nitrite ujmnldpmt2410-76-81 09:58:00* Test Item Value Reference Range Interpretation Comments Urine Nitrite (test code = 31774-2) NEGATIVE NEGATIVE [facility] HospitalUrine protein measurement by test strip (mass/volume)2019-08-11 09:58:00* Test Item Value Reference Range Interpretation Comments Urine Protein (test code = 5804-0) 2+ NEGATIVE [facility] HospitalUrine glucose orhcueedd1841-10-52 09:58:00* Test Item Value Reference Range Interpretation Comments Urine Glucose (UA) (test code = 2349-9) 2+ NEGATIVE [facility] HospitalUrine ketones detection by automated test hkkyj8068-03-74 09:58:00* Test Item Value Reference Range Interpretation Comments Urine Ketones (test code = 67809-6) NEGATIVE NEGATIVE [facility] HospitalUrine urobilinogen measurement by test strip (mass/volume)2019-08-11 09:58:00* Test Item Value Reference Range Interpretation Comments Urine Urobilinogen (test code = 07232-2) 0.2 0.2-1 [facility] HospitalUrine total bilirubin measurement (mass/volume)2019-08-11 09:58:00* Test Item Value Reference Range Interpretation Comments Urine Bilirubin (test code = 1978-6) NEGATIVE NEGATIVE [facility] HospitalUrine erythrocytes qwbxfytky3173-60-86 09:58:00* Test Item Value Reference Range Interpretation Comments Urine Blood (test code = 81205-9) MODERATE NEGATIVE [facility] HospitalAutomated urine sediment leukocyte count by microscopy (number/high power field)2019-08-11 09:58:00* Test Item Value Reference Range Interpretation Comments Urine WBC (test code = 5821-4) 21-50 0-5 [facility] HospitalErythrocytes detection in urine sediment by light btzgyuercy2251-51-40 09:58:00* Test Item Value Reference Range Interpretation Comments Urine RBC (test code = 74267-0) >50 0-5 [facility] HospitalBacteria detection in urine sediment by light ytjdcfbqij7883-18-97 09:58:00* Test Item Value Reference Range Interpretation Comments Urine Bacteria (test code = 57771-8) FEW NONE [facility] HospitalEpithelial cells detection in urine sediment by light mfgozmrirl3726-33-93 09:58:00* Test Item Value Reference Range Interpretation Comments Urine Epithelial Cells (test code = 57064-5) FEW NONE [facility] or plasma sodium measurement (moles/volume)2019-08-11 09:58:00* Test Item Value Reference Range Interpretation Comments Sodium Level (test code = 2951-2) 142 136-145 [facility]villeer[facility] or plasma potassium measurement (moles/volume)2019-08-11 09:58:00* Test Item Value Reference Range Interpretation Comments Potassium Level (test code = 2823-3) 3.6 3.5-5.1 [facility] or plasma chloride measurement (moles/volume)2019-08-11 09:58:00* Test Item Value Reference Range Interpretation Comments Chloride Level (test code = 2075-0) 105 98-107 [facility]er[facility] or plasma carbon dioxide, total measurement (moles/volume)2019-08-11 09:58:00* Test Item Value Reference Range Interpretation Comments Carbon Dioxide Level (test code = 2028-9) 24 22-29 [facility]er[facility] or plasma anion srb6417-60-69 09:58:00* Test Item Value Reference Range Interpretation Comments Anion Gap (test code = 39586-1) 16.6 8-16 [facility] or plasma urea nitrogen measurement (mass/volume)2019-08-11 09:58:00* Test Item Value Reference Range Interpretation Comments Blood Urea Nitrogen (test code = 3094-0) 19 7-26 [facility] or plasma creatinine measurement (mass/volume)2019-08-11 09:58:00* Test Item Value Reference Range Interpretation Comments Creatinine (test code = 2160-0) 1.66 0.72-1.25 [facility] or plasma urea nitrogen/creatinine mass ykfab2917-55-65 09:58:00* Test Item Value Reference Range Interpretation Comments BUN/Creatinine Ratio (test code = 3097-3) 11 6-25 [facility] HospitalEstimated glomerular filtration rate (GFR) nzufvwqdbamio8446-03-88 09:58:00* Test Item Value Reference Range Interpretation Comments Estimat Glomerular Filtration Rate (test code = 289065164) 43 >60 Ranges were taken from the National Kidney Disease Education Program and the [facility] literature.Reference ranges:60 or greater: Dnhjrx81-81 ( for 3 consecutive months): Chronic kidney disease 15 or less: Kidney failureColumb[facility] Community HospitalGlucose qtjbvwyrcrx9075-20-33 09:58:00* Test Item Value Reference Range Interpretation Comments Glucose Level (test code = YXO0991) 140 74-118 [facility] or plasma calcium measurement (mass/volume)2019-08-11 09:58:00* Test Item Value Reference Range Interpretation Comments Calcium Level (test code = 91353-6) 10.0 8.4-10.2 [facility] or plasma magnesium measurement (mass/volume)2019-08-11 09:58:00* Test Item Value Reference Range Interpretation Comments Magnesium Level (test code = 08660-1) 1.8 1.3-2.1 [facility] or plasma total bilirubin measurement (mass/volume)2019-08-11 09:58:00* Test Item Value Reference Range Interpretation Comments Total Bilirubin (test code = 1975-2) 0.9 0.2-1.2 [facility] HospitalFluoroscopic procedure less than one hour waqnjkeb4835-45-48 09:58:00* Test Item Value Reference Range Interpretation Comments Aspartate Amino Transf (AST/SGOT) (test code = Aspartate Amino Transf (AST/SGOT)) 18 5-34 [facility] or plasma alanine aminotransferase measurement (enzymatic activity/volume)2019-08-11 09:58:00* Test Item Value Reference Range Interpretation Comments Alanine Aminotransferase (ALT/SGPT) (test code = 1742-6) 19 0-55 [facility] or plasma protein measurement (mass/volume)2019-08-11 09:58:00* Test Item Value Reference Range Interpretation Comments Total Protein (test code = 2885-2) 8.2 6.5-8.1 [facility] or plasma albumin measurement (mass/volume)2019-08-11 09:58:00* Test Item Value Reference Range Interpretation Comments Albumin (test code = 1751-7) 4.3 3.5-5.0 [facility] HospitalPlasma globulin measurement (mass/volume) 2019-08-11 09:58:00* Test Item Value Reference Range Interpretation Comments Globulin (test code = 87927-4) 3.9 2.3-3.5 [facility]ville[facility] or plasma albumin/globulin mass oeppy9807-42-02 09:58:00* Test Item Value Reference Range Interpretation Comments Albumin/Globulin Ratio (test code = 1759-0) 1.1 0.8-2.0 [facility] or plasma alkaline phosphatase measurement (enzymatic activity/volume)2019-08-11 09:58:00* Test Item Value Reference Range Interpretation Comments Alkaline Phosphatase (test code = 6768-6) 94 40-150 [facility] HospitalBNP Ach-vOlx4864-48-03 09:58:00* Test Item Value Reference Range Interpretation Comments B-Type Natriuretic Peptide (test code = 03564-3) 13.1 0-100 [facility] or plasma creatine kinase measurement (enzymatic activity/volume)2019-08-11 09:58:00* Test Item Value Reference Range Interpretation Comments Creatine Kinase (test code = 2157-6) 99 30-200 [facility]villeer[facility] or plasma creatine kinase MB measurement (mass/volume)2019-08-11 09:58:00* Test Item Value Reference Range Interpretation Comments Creatine Kinase MB (test code = 70993-6) 1.10 0-5.0 [facility] HospitalTroponin I measurement by highly sensitive enzyme pgahkswkrac5446-47-11 09:58:00* Test Item Value Reference Range Interpretation Comments Troponin I (test code = 36617-8) 0.008 0-0.300 [facility] or plasma lipase measurement (enzymatic activity/volume)2019-08-11 09:58:00* Test Item Value Reference Range Interpretation Comments Lipase (test code = 3040-3) 54 8-78 [facility] HospitalBlood oikzjed4700-48-17 09:58:00* Test Item Value Reference Range Interpretation Comments Blood Culture (test code = 83518047) NO GROWTH AFTER 5 DAYS, FINAL REPORT [address] (KUB)2019-08-05 15:22:00 [facility] [address] [place] [address] Patient Name: ZAYNAB FLORES MR #: [id number] : 1965 Age/Sex: 54/M Req #: [id number] Adm Physician: Ordered by: CARLOS COX MD Report #: [id number] Location: [facility] Room/Bed: Procedure: [id number] DX/ABDOMEN -1VIEW (KUB) Exam Date: 08/05/19 Exam [...] Level (test code = 2951-2) 137 136-145 [facility] HospitalPotassium Lttdr3934-05-48 12:59:00* Test Item Value Reference Range Interpretation Comments Potassium Level (test code = 2823-3) 3.6 3.5-5.1 [facility] HospitalChloride Gieia8797-87-23 12:59:00* Test Item Value Reference Range Interpretation Comments Chloride Level (test code = 2075-0) 101 98-107 [facility] HospitalCarbon Dioxide Dkxuw0859-67-39 12:59:00* Test Item Value Reference Range Interpretation Comments Carbon Dioxide Level (test code = 2028-9) 21 22-29 L [facility] HospitalAnion Tnr2143-13-36 12:59:00* Test Item Value Reference Range Interpretation Comments Anion Gap (test code = 54724-8) 18.6 8-16 [facility] HospitalBlood Urea Dpxkfxtm1073-94-14 12:59:00* Test Item Value Reference Range Interpretation Comments Blood Urea Nitrogen (test code = 3094-0) 26 7-26 [facility] HospitalCreatinine2020-01-23 12:59:00* Test Item Value Reference Range Interpretation Comments Creatinine (test code = 2160-0) 1.60 0.72-1.25 H [facility] HospitalBUN/Creatinine Cajro4729-49-26 12:59:00* Test Item Value Reference Range Interpretation Comments BUN/Creatinine Ratio (test code = 3097-3) 16 6-25 [facility] HospitalEstimat Glomerular Filtration Rate 2019-04-01 12:59:00* Test Item Value Reference Range Interpretation Comments Estimat Glomerular Filtration Rate (test code = 102131639) 45 >60 L Ranges were taken from the National Kidney Disease Education Program and the [facility] literature.Reference ranges:60 or greater: Lgndoj55-39 ( for 3 consecutive months): Chronic kidney disease 15 or less: Kidney failureColumbus Community HospitalGlucose Sybrq1170-95-44 12:59:00* Test Item Value Reference Range Interpretation Comments Glucose Level (test code = HSA7094) 152 74-118 H [facility] HospitalCalcium Tcpqm4830-21-12 12:59:00* Test Item Value Reference Range Interpretation Comments Calcium Level (test code = 10637-8) 10.3 8.4-10.2 H [facility] HospitalTotal Zmwxefgui2288-88-23 12:59:00* Test Item Value Reference Range Interpretation Comments Total Bilirubin (test code = 1975-2) 1.1 0.2-1.2 [facility] HospitalAspartate Amino Transf (AST/SGOT) 2019-04-01 12:59:00* Test Item Value Reference Range Interpretation Comments Aspartate Amino Transf (AST/SGOT) (test code = Aspartate Amino Transf (AST/SGOT)) 26 5-34 [facility] HospitalAlanine Aminotransferase (ALT/SGPT) 2019-04-01 12:59:00* Test Item Value Reference Range Interpretation Comments Alanine Aminotransferase (ALT/SGPT) (test code = 1742-6) 31 0-55 [facility] HospitalTotal Ifkpznn1946-66-41 12:59:00* Test Item Value Reference Range Interpretation Comments Total Protein (test code = 2885-2) 8.1 6.5-8.1 [facility] HospitalAlbumin2020-01-23 12:59:00* Test Item Value Reference Range Interpretation Comments Albumin (test code = 1751-7) 4.5 3.5-5.0 [facility] HospitalGlobulin2020-01-23 12:59:00* Test Item Value Reference Range Interpretation Comments Globulin (test code = 13109-5) 3.6 2.3-3.5 H [facility] HospitalAlbumin/Globulin Aptjr0946-70-71 12:59:00 * Test Item Value Reference Range Interpretation Comments Albumin/Globulin Ratio (test code = 1759-0) 1.3 0.8-2.0 [facility] HospitalAlkaline Pjxtwmziljz6857-42-55 12:59:00* Test Item Value Reference Range Interpretation Comments Alkaline Phosphatase (test code = 6768-6) 92 40-150 [facility] HospitalWhite Blood Rpcgq0575-21-66 12:49:00* Test Item Value Reference Range Interpretation Comments White Blood Count (test code = 6690-2) 12.29 4.8-10.8 H [facility] HospitalRed Blood Blxgj8513-33-90 12:49:00* Test Item Value Reference Range Interpretation Comments Red Blood Count (test code = 789-8) 5.23 4.3-5.7 [facility] HospitalHemoglobin2020-01-23 12:49:00* Test Item Value Reference Range Interpretation Comments Hemoglobin (test code = 55544-0) 14.1 14.0-18.0 [facility] HospitalHematocrit2020-01-23 12:49:00* Test Item Value Reference Range Interpretation Comments Hematocrit (test code = 4544-3) 43.4 38.2-49.6 [facility] HospitalMean Corpuscular Wypkev2518-92-44 12:49:00* Test Item Value Reference Range Interpretation Comments Mean Corpuscular Volume (test code = 787-2) 83.0 81-99 [facility] HospitalMean Corpuscular Uzvnyuxnme5657-64-08 12:49:00* Test Item Value Reference Range Interpretation Comments Mean Corpuscular Hemoglobin (test code = 785-6) 27.0 28-32 L [facility] HospitalMean Corpuscular Hemoglobin Concent 2019-04-01 12:49:00* Test Item Value Reference Range Interpretation Comments Mean Corpuscular Hemoglobin Concent (test code = 786-4) 32.5 31-35 [facility] HospitalRed Cell Distribution Wwjdc3583-42-80 12:49:00* Test Item Value Reference Range Interpretation Comments Red Cell Distribution Width (test code = 93647-9) 15.4 11.7 -14.4 H [facility] HospitalPlatelet Lppja7364-20-42 12:49:00* Test Item Value Reference Range Interpretation Comments Platelet Count (test code = 777-3) 279 140-360 [facility] HospitalNeutrophils (%) (Auto)2019-04-01 12:49:00 * Test Item Value Reference Range Interpretation Comments Neutrophils (%) (Auto) (test code = 98669-8) 68.1 38.7-80.0 [facility] HospitalLymphocytes (%) (Auto)2019-04-01 12:49:00 * Test Item Value Reference Range Interpretation Comments Lymphocytes (%) (Auto) (test code = 736-9) 22.0 18.0-39.1 [facility] HospitalMonocytes (%) (Auto)2019-04-01 12:49:00* Test Item Value Reference Range Interpretation Comments Monocytes (%) (Auto) (test code = 5905-5) 7.2 4.4-11.3 [facility] HospitalEosinophils (%) (Auto)2019-04-01 12:49:00 * Test Item Value Reference Range Interpretation Comments Eosinophils (%) (Auto) (test code = 713-8) 1.8 0.0-6.0 [facility] HospitalBasophils (%) (Auto)2019-04-01 12:49:00* Test Item Value Reference Range Interpretation Comments Basophils (%) (Auto) (test code = 706-2) 0.4 0.0-1.0 [facility] HospitalIM GRANULOCYTES %2019-04-01 12:49:00* Test Item Value Reference Range Interpretation Comments IM GRANULOCYTES % (test code = IM GRANULOCYTES %) 0.5 0.0- 1.0 [facility] HospitalNeutrophils # (Auto)2019-04-01 12:49:00* Test Item Value Reference Range Interpretation Comments Neutrophils # (Auto) (test code = 751-8) 8.4 2.1-6.9 H [facility] HospitalLymphocytes # (Auto)2019-04-01 12:49:00* Test Item Value Reference Range Interpretation Comments Lymphocytes # (Auto) (test code = 79313-1) 2.7 1.0-3.2 [facility] HospitalMonocytes # (Auto)2019-04-01 12:49:00* Test Item Value Reference Range Interpretation Comments Monocytes # (Auto) (test code = 742-7) 0.9 0.2-0.8 H [facility] HospitalEosinophils # (Auto)2019-04-01 12:49:00* Test Item Value Reference Range Interpretation Comments Eosinophils # (Auto) (test code = 711-2) 0.2 0.0-0.4 [facility] HospitalBasophils # (Auto)2019-04-01 12:49:00* Test Item Value Reference Range Interpretation Comments Basophils # (Auto) (test code = 704-7) 0.1 0.0-0.1 [facility] HospitalAbsolute Immature Granulocyte (auto 2019-04-01 12:49:00* Test Item Value Reference Range Interpretation Comments Absolute Immature Granulocyte (auto (chel t code = Absolute Immature Granulocyte (auto) 0.06 0-0.1 [facility] HospitalUrine GQH2448-01-62 12:03:00* Test Item Value Reference Range Interpretation Comments Urine WBC (test code = 5821-4) 21-50 0-5 H [facility] HospitalUrine KGO9505-99-42 12:03:00* Test Item Value Reference Range Interpretation Comments Urine RBC (test code = 88620-2) 01-27 0-5 H [facility] HospitalUrine Douyocur7646-29-24 12:03:00* Test Item Value Reference Range Interpretation Comments Urine Bacteria (test code = 74551-3) MANY NONE H [facility] HospitalUrine Epithelial Dxnlv3814-77-19 12:03:00 * Test Item Value Reference Range Interpretation Comments Urine Epithelial Cells (test code = 66974-4) MODERATE NONE [facility] HospitalUrine Eegfo9365-69-79 12:03:00* Test Item Value Reference Range Interpretation Comments Urine Yeast (test code = 02883-4) MANY NONE H [facility] HospitalCT ABDOMEN/PELVIS IU9672-98-62 11:48:00 [place] [address] Patient Name: ZAYNAB FLORES MR #: [id number] : 1965 Age/Sex: 54/M Req #: [id number] Adm Physician: Ordered by: RAMAN THAKKAR VESSEL BUILDER Report #: [id number] Location: ER Room/Bed: Procedure: CT/CT ABDOMEN/PELVIS WO Exam Date: 04/01/19 Exam [...] 1156 COPY TO: RAMAN CHICAS NP Urine Mguai5475-15-58 11:33:00* Test Item Value Reference Range Interpretation Comments Urine Color (test code = 5778-6) YELLOW YELLOW [facility] HospitalUrine Fyrhdso9542-15-31 11:33:00* Test Item Value Reference Range Interpretation Comments Urine Clarity (test code = 65199-8) CLOUDY CLEAR H [facility] HospitalUrine Specific Wxdpvgf5326-87-87 11:33:00 * Test Item Value Reference Range Interpretation Comments Urine Specific Rand (test code = 5811-5) 1.015 1.010-1.02 5 [facility] HospitalUrine hK1632-61-90 11:33:00* Test Item Value Reference Range Interpretation Comments Urine pH (test code = 63310-4) 6 5-7 [facility] HospitalUrine Leukocyte Nxsysyaq5305-65-27 11:33:00* Test Item Value Reference Range Interpretation Comments Urine Leukocyte Esterase (test code = 5799-2) SMALL NEGATIVE [facility] HospitalUrine Pjchtmg2048-93-79 11:33:00* Test Item Value Reference Range Interpretation Comments Urine Nitrite (test code = 46238-6) NEGATIVE NEGATIVE [facility] Ecnxdrt1780-58-63 11:33:00* Test Item Value Reference Range Interpretation Comments Urine Protein (test code = 5804-0) NEGATIVE NEGATIVE [facility] Glucose (UA)2019-04-01 11:33:00* Test Item Value Reference Range Interpretation Comments Urine Glucose (UA) (test code = 2349-9) 3+ NEGATIVE [facility] HospitalUrine Qlqzfqa9072-39-93 11:33:00* Test Item Value Reference Range Interpretation Comments Urine Ketones (test code = 65865-2) NEGATIVE NEGATIVE [facility] Gpbbpjojmkhz6055-83-77 11:33:00* Test Item Value Reference Range Interpretation Comments Urine Urobilinogen (test code = 59125-8) 0.2 0.2-1 [facility] HospitalUrine Watnhplum8986-11-97 11:33:00* Test Item Value Reference Range Interpretation Comments Urine Bilirubin (test code = 1978-6) NEGATIVE NEGATIVE [facility] HospitalUrine Ohbtf7715-70-46 11:33:00* Test Item Value Reference Range Interpretation Comments Urine Blood (test code = 94193-2) 1+ NEGATIVE [facility] HospitalYeast detection in urine sediment by light dhdzjwnkes2647-01-17 09:30:00* Test Item Value Reference Range Interpretation Comments Urine Yeast (test code = 74496-9) MANY NONE [facility] HospitalBacterial urine datseax6744-68-68 09:30:00* Test Item Value Reference Range Interpretation Comments Urine Culture (test code = 630-4) MICH PARAPSILOSIS [facility] HospitalYeast detection in urine sediment by light egthpmgfgy2218-38-46 09:30:00* Test Item Value Reference Range Interpretation Comments Urine Yeast (test code = 69768-3) MANY NONE [facility] HospitalBacterial urine scmchyi1730-03-32 09:30:00* Test Item Value Reference Range Interpretation Comments Urine Culture (test code = 630-4) MICH PARAPSILOSIS [facility] Pdkcu5149-96-59 21:45:00* Test Item Value Reference Range Interpretation Comments Sodium Level (test code = 2951-2) 139 136-145 [facility] HospitalPotassium Dvnth1089-85-86 21:45:00* Test Item Value Reference Range Interpretation Comments Potassium Level (test code = 2823-3) 3.6 3.5-5.1 [facility] HospitalChloride Seipt9805-95-37 21:45:00* Test Item Value Reference Range Interpretation Comments Chloride Level (test code = 2075-0) 104 98-107 [facility] HospitalCarbon Dioxide Vaxpb4295-22-02 21:45:00* Test Item Value Reference Range Interpretation Comments Carbon Dioxide Level (test code = 2028-9) 23 22-29 [facility] HospitalAnion Qnn8252-75-14 21:45:00* Test Item Value Reference Range Interpretation Comments Anion Gap (test code = 35969-0) 15.6 8-16 [facility] HospitalBlood Urea Kzmalkko4645-67-18 21:45:00* Test Item Value Reference Range Interpretation Comments Blood Urea Nitrogen (test code = 3094-0) 20 7-26 [facility] HospitalCreatinine2020-01-11 21:45:00* Test Item Value Reference Range Interpretation Comments Creatinine (test code = 2160-0) 1.62 0.72-1.25 H [facility] HospitalBUN/Creatinine Hzcrv5915-75-71 21:45:00* Test Item Value Reference Range Interpretation Comments BUN/Creatinine Ratio (test code = 3097-3) 12 6-25 [facility] HospitalEstimat Glomerular Filtration Rate 2019-03-20 21:45:00* Test Item Value Reference Range Interpretation Comments Estimat Glomerular Filtration Rate (test code = 521027325) 44 >60 L Ranges were taken from the National Kidney Disease Education Program and the [facility] literature.Reference ranges:60 or greater: Qltfoq43-36 ( for 3 consecutive months): Chronic kidney disease 15 or less: Kidney failureCHI Citizens Medical CenterGlucose Pbczv7662-64-08 21:45:00* Test Item Value Reference Range Interpretation Comments Glucose Level (test code = SHV5008) 163 74-118 H [facility] HospitalCalcium Ylrez2866-06-27 21:45:00* Test Item Value Reference Range Interpretation Comments Calcium Level (test code = 93813-5) 9.2 8.4-10.2 [facility] HospitalTotal Tgpxnjdyn7377-63-10 21:45:00* Test Item Value Reference Range Interpretation Comments Total Bilirubin (test code = 1975-2) 0.7 0.2-1.2 [facility] HospitalAspartate Amino Transf (AST/SGOT) 2019-03-20 21:45:00* Test Item Value Reference Range Interpretation Comments Aspartate Amino Transf (AST/SGOT) (test code = Aspartate Amino Transf (AST/SGOT)) 36 5-34 H [facility] HospitalAlanine Aminotransferase (ALT/SGPT) 2019-03-20 21:45:00* Test Item Value Reference Range Interpretation Comments Alanine Aminotransferase (ALT/SGPT) (test code = 1742-6) 38 0-55 [facility] HospitalTotal Ixohrzt9908-34-74 21:45:00* Test Item Value Reference Range Interpretation Comments Total Protein (test code = 2885-2) 7.2 6.5-8.1 [facility] HospitalAlbumin2020-01-11 21:45:00* Test Item Value Reference Range Interpretation Comments Albumin (test code = 1751-7) 3.7 3.5-5.0 [facility] HospitalGlobulin2020-01-11 21:45:00* Test Item Value Reference Range Interpretation Comments Globulin (test code = 95045-9) 3.5 2.3-3.5 [facility] HospitalAlbumin/Globulin Tkwnw5094-00-12 21:45:00 * Test Item Value Reference Range Interpretation Comments Albumin/Globulin Ratio (test code = 1759-0) 1.1 0.8-2.0 [facility] HospitalAlkaline Spuuugaypgi9617-41-70 21:45:00* Test Item Value Reference Range Interpretation Comments Alkaline Phosphatase (test code = 6768-6) 81 40-150 [facility] HospitalWhite Blood Wrsvf1269-96-94 21:27:00* Test Item Value Reference Range Interpretation Comments White Blood Count (test code = 6690-2) 8.75 4.8-10.8 [facility] HospitalRed Blood Muzkt0595-87-98 21:27:00* Test Item Value Reference Range Interpretation Comments Red Blood Count (test code = 789-8) 4.65 4.3-5.7 [facility] HospitalHemoglobin2020-01-11 21:27:00* Test Item Value Reference Range Interpretation Comments Hemoglobin (test code = 89503-8) 12.4 14.0-18.0 L [facility] HospitalHematocrit2020-01-11 21:27:00* Test Item Value Reference Range Interpretation Comments Hematocrit (test code = 4544-3) 39.4 38.2-49.6 [facility] HospitalMean Corpuscular Ifhiks4063-46-76 21:27:00* Test Item Value Reference Range Interpretation Comments Mean Corpuscular Volume (test code = 787-2) 84.7 81-99 [facility] HospitalMean Corpuscular Vzfzhmxjpv6424-53-49 21:27:00* Test Item Value Reference Range Interpretation Comments Mean Corpuscular Hemoglobin (test code = 785-6) 26.7 28-32 L [facility] HospitalMean Corpuscular Hemoglobin Concent 2019-03-20 21:27:00* Test Item Value Reference Range Interpretation Comments Mean Corpuscular Hemoglobin Concent (test code = 786-4) 31.5 31-35 [facility] HospitalRed Cell Distribution Nwfoh4736-82-36 21:27:00* Test Item Value Reference Range Interpretation Comments Red Cell Distribution Width (test code = 46969-8) 15.8 11.7 -14.4 H [facility] HospitalPlatelet Fcwfi8646-20-88 21:27:00* Test Item Value Reference Range Interpretation Comments Platelet Count (test code = 777-3) 197 140-360 [facility] HospitalNeutrophils (%) (Auto)2019-03-20 21:27:00 * Test Item Value Reference Range Interpretation Comments Neutrophils (%) (Auto) (test code = 24985-7) 73.0 38.7-80.0 [facility] HospitalLymphocytes (%) (Auto)2019-03-20 21:27:00 * Test Item Value Reference Range Interpretation Comments Lymphocytes (%) (Auto) (test code = 736-9) 12.5 18.0-39.1 L [facility] HospitalMonocytes (%) (Auto)2019-03-20 21:27:00* Test Item Value Reference Range Interpretation Comments Monocytes (%) (Auto) (test code = 5905-5) 11.8 4.4-11.3 H [facility] HospitalEosinophils (%) (Auto)2019-03-20 21:27:00 * Test Item Value Reference Range Interpretation Comments Eosinophils (%) (Auto) (test code = 713-8) 1.6 0.0-6.0 [facility] HospitalBasophils (%) (Auto)2019-03-20 21:27:00* Test Item Value Reference Range Interpretation Comments Basophils (%) (Auto) (test code = 706-2) 0.3 0.0-1.0 [facility] HospitalIM GRANULOCYTES %2019-03-20 21:27:00* Test Item Value Reference Range Interpretation Comments IM GRANULOCYTES % (test code = IM GRANULOCYTES %) 0.8 0.0- 1.0 [facility] HospitalNeutrophils # (Auto)2019-03-20 21:27:00* Test Item Value Reference Range Interpretation Comments Neutrophils # (Auto) (test code = 751-8) 6.4 2.1-6.9 [facility] HospitalLymphocytes # (Auto)2019-03-20 21:27:00* Test Item Value Reference Range Interpretation Comments Lymphocytes # (Auto) (test code = 33465-7) 1.1 1.0-3.2 [facility] HospitalMonocytes # (Auto)2019-03-20 21:27:00* Test Item Value Reference Range Interpretation Comments Monocytes # (Auto) (test code = 742-7) 1.0 0.2-0.8 H [facility] HospitalEosinophils # (Auto)2019-03-20 21:27:00* Test Item Value Reference Range Interpretation Comments Eosinophils # (Auto) (test code = 711-2) 0.1 0.0-0.4 [facility] HospitalBasophils # (Auto)2019-03-20 21:27:00* Test Item Value Reference Range Interpretation Comments Basophils # (Auto) (test code = 704-7) 0.0 0.0-0.1 [facility] HospitalAbsolute Immature Granulocyte (auto 2019-03-20 21:27:00* Test Item Value Reference Range Interpretation Comments Absolute Immature Granulocyte (auto (chel t code = Absolute Immature Granulocyte (auto) 0.07 0-0.1 [facility] HospitalUrine YFB9067-85-72 21:25:00* Test Item Value Reference Range Interpretation Comments Urine WBC (test code = 5821-4) 21-50 0-5 H [facility] HospitalUrine XGT3218-87-81 21:25:00* Test Item Value Reference Range Interpretation Comments Urine RBC (test code = 70760-9) 21-50 0-5 H [facility] HospitalUrine Iqkaqqua9802-51-44 21:25:00* Test Item Value Reference Range Interpretation Comments Urine Bacteria (test code = 49244-8) PRESENT NONE [facility] HospitalUrine Epithelial Auysx5201-63-29 21:25:00 * Test Item Value Reference Range Interpretation Comments Urine Epithelial Cells (test code = 25868-0) RARE NONE [facility] HospitalUrine Pxsrn7831-07-10 21:19:00* Test Item Value Reference Range Interpretation Comments Urine Color (test code = 5778-6) YELLOW YELLOW [facility] HospitalUrine Bhmxkzj6626-15-76 21:19:00* Test Item Value Reference Range Interpretation Comments Urine Clarity (test code = 75341-5) CLOUDY CLEAR H [facility] HospitalUrine Specific Wpozehk6261-19-91 21:19:00 * Test Item Value Reference Range Interpretation Comments Urine Specific Rand (test code = 5811-5) 1.020 1.010-1.02 5 [facility] HospitalUrine fJ3958-57-71 21:19:00* Test Item Value Reference Range Interpretation Comments Urine pH (test code = 54622-8) 6.5 5-7 [facility] HospitalUrine Leukocyte Ggjmqifv4968-17-57 21:19:00* Test Item Value Reference Range Interpretation Comments Urine Leukocyte Esterase (test code = 5799-2) SMALL NEGATIVE [facility] HospitalUrine Xszjjji0940-63-87 21:19:00* Test Item Value Reference Range Interpretation Comments Urine Nitrite (test code = 70859-8) NEGATIVE NEGATIVE [facility] HospitalUrine Mehvvsc4531-15-50 21:19:00* Test Item Value Reference Range Interpretation Comments Urine Protein (test code = 5804-0) NEGATIVE NEGATIVE [facility] HospitalUrine Glucose (UA)2019-03-20 21:19:00* Test Item Value Reference Range Interpretation Comments Urine Glucose (UA) (test code = 2349-9) 3+ NEGATIVE H [facility] HospitalUrine Aulilsz4268-18-17 21:19:00* Test Item Value Reference Range Interpretation Comments Urine Ketones (test code = 02802-2) NEGATIVE NEGATIVE [facility] HospitalUrine Pbnvuhpritgw4330-81-46 21:19:00* Test Item Value Reference Range Interpretation Comments Urine Urobilinogen (test code = 39384-4) 0.2 0.2-1 [facility] HospitalUrine Prbvhmkpq0043-16-04 21:19:00* Test Item Value Reference Range Interpretation Comments Urine Bilirubin (test code = 1978-6) NEGATIVE NEGATIVE [facility] HospitalUrine Oicba6502-24-95 21:19:00* Test Item Value Reference Range Interpretation Comments Urine Blood (test code = 25145-9) 3+ NEGATIVE [facility] HospitalABDOMEN-1VIEW (KUB)2019-03-20 21:19:00 [facility] [address] [place] [address] Patient Name: ZAYNAB FLORES MR #: [id number] : 1965 Age/Sex: 54/M Req #: [id number] Adm Physician: Ordered by: NAVARRO CHONG DO Report #: [id number] Location: ER Room/Bed: Procedure: [id number] D X/ABDOMEN-1VIEW (KUB) Exam Date: 03/20/19 Exam [...] 03/20/192122 COPY TO: NAVARRO CHONG DO Bedside Quwueak4186-03-27 06:07:00* Test Item Value Reference Range Interpretation Comments Bedside Glucose (test code = 28552-2) 192 70-120 H Meter ID: [id number] Community HospitalBedside Glucose 2019-03-19 06:07:00* Test Item Value Reference Range Interpretation Comments Bedside Glucose (test code = 33071-2) 192 70-120 H Meter ID: [id number] Surgical Hospital of El Pasoillary blood glucose measurement by glucometer (mass/volume)2019-03-19 04:38:00* Test Item Value Reference Range Interpretation Comments Bedside Glucose (test code = 29848-5) 192 70-120 Meter ID: [id number] Surgical Hospital of [facility] Pasoillary blood glucose measurement by glucometer (mass/volume)2019-03-19 04:38:00* Test Item Value Reference Range Interpretation Comments Bedside Glucose (test code = 13031-1) 192 70-120 Meter ID: [id number] Community HospitalUrine Culture 2019-02-18 06:23:00* Test Item Value Reference Range Interpretation Comments Urine Culture (test code = 630-4) No Result Data Provided [facility] HospitalUrine Cpyziyr4541-91-90 06:23:00* Test Item Value Reference Range Interpretation Comments Urine Culture (test code = 630-4) No Result Data Provided [facility] HospitalUrine Niqfjyt1775-75-18 06:23:00* Test Item Value Reference Range Interpretation Comments Urine Culture (test code = 630-4) No Result Data Provided [facility] Uwmuf3548-09-67 06:22:00* Test Item Value Reference Range Interpretation Comments Sodium Level (test code = 2951-2) 136 136-145 [facility] HospitalPotassium Mebvh7621-28-28 06:22:00* Test Item Value Reference Range Interpretation Comments Potassium Level (test code = 2823-3) 3.9 3.5-5.1 [facility] HospitalChloride Mfjyv0122-06-53 06:22:00* Test Item Value Reference Range Interpretation Comments Chloride Level (test code = 2075-0) 104 98-107 [facility] HospitalCarbon Dioxide Joaws1038-20-90 06:22:00* Test Item Value Reference Range Interpretation Comments Carbon Dioxide Level (test code = 2028-9) 21 22-29 L [facility] HospitalAnion Qml0981-86-15 06:22:00* Test Item Value Reference Range Interpretation Comments Anion Gap (test code = 03140-8) 14.9 8-16 [facility] HospitalBlood Urea Wlrrlqoi8585-32-38 06:22:00* Test Item Value Reference Range Interpretation Comments Blood Urea Nitrogen (test code = 3094-0) 22 7-26 [facility] HospitalCreatinine2019-12-12 06:22:00* Test Item Value Reference Range Interpretation Comments Creatinine (test code = 2160-0) 1.72 0.72-1.25 H [facility] HospitalBUN/Creatinine Vvmef3347-02-56 06:22:00* Test Item Value Reference Range Interpretation Comments BUN/Creatinine Ratio (test code = 3097-3) 13 6-25 [facility] HospitalEstimat Glomerular Filtration Rate 2019-02-18 06:22:00* Test Item Value Reference Range Interpretation Comments Estimat Glomerular Filtration Rate (test code = 137509451) 41 >60 L Ranges were taken from the National Kidney Disease Education Program and the [facility] literature.Reference ranges:60 or greater: Onagvh81-31 ( for 3 consecutive months): Chronic kidney disease 15 or less: Kidney failureColumbus Community HospitalGlucose Ropwh1814-27-15 06:22:00* Test Item Value Reference Range Interpretation Comments Glucose Level (test code = IJL5273) 188 74-118 H [facility] HospitalCalcium Tyxat6073-47-91 06:22:00* Test Item Value Reference Range Interpretation Comments Calcium Level (test code = 17096-1) 9.1 8.4-10.2 [facility] HospitalWhite Blood Ofugc1061-49-37 05:47:00* Test Item Value Reference Range Interpretation Comments White Blood Count (test code = 6690-2) 16.24 4.8-10.8 H [facility] HospitalRed Blood Yzkcv1167-49-97 05:47:00* Test Item Value Reference Range Interpretation Comments Red Blood Count (test code = 789-8) 4.45 4.3-5.7 [facility] HospitalHemoglobin2019-12-12 05:47:00* Test Item Value Reference Range Interpretation Comments Hemoglobin (test code = 88583-0) 12.0 14.0-18.0 L [facility] HospitalHematocrit2019-12-12 05:47:00* Test Item Value Reference Range Interpretation Comments Hematocrit (test code = 4544-3) 38.4 38.2-49.6 [facility] HospitalMean Corpuscular Bgulzd0037-43-00 05:47:00* Test Item Value Reference Range Interpretation Comments Mean Corpuscular Volume (test code = 787-2) 86.3 81-99 [facility] HospitalMean Corpuscular Fiijblqjkg1540-81-51 05:47:00* Test Item Value Reference Range Interpretation Comments Mean Corpuscular Hemoglobin (test code = 785-6) 27.0 28-32 L [facility] HospitalMean Corpuscular Hemoglobin Concent 2019-02-18 05:47:00* Test Item Value Reference Range Interpretation Comments Mean Corpuscular Hemoglobin Concent (test code = 786-4) 31.3 31-35 [facility] HospitalRed Cell Distribution Bnhiw9679-08-41 05:47:00* Test Item Value Reference Range Interpretation Comments Red Cell Distribution Width (test code = 70557-4) 15.0 11.7 -14.4 H [facility] HospitalPlatelet Kxmse9052-61-27 05:47:00* Test Item Value Reference Range Interpretation Comments Platelet Count (test code = 777-3) 184 140-360 [facility] HospitalNeutrophils (%) (Auto)2019-02-18 05:47:00 * Test Item Value Reference Range Interpretation Comments Neutrophils (%) (Auto) (test code = 09566-8) 84.7 38.7-80.0 H [facility] HospitalLymphocytes (%) (Auto)2019-02-18 05:47:00 * Test Item Value Reference Range Interpretation Comments Lymphocytes (%) (Auto) (test code = 736-9) 5.5 18.0-39.1 L [facility] HospitalMonocytes (%) (Auto)2019-02-18 05:47:00* Test Item Value Reference Range Interpretation Comments Monocytes (%) (Auto) (test code = 5905-5) 7.9 4.4-11.3 [facility] HospitalEosinophils (%) (Auto)2019-02-18 05:47:00 * Test Item Value Reference Range Interpretation Comments Eosinophils (%) (Auto) (test code = 713-8) 1.2 0.0-6.0 [facility] HospitalBasophils (%) (Auto)2019-02-18 05:47:00* Test Item Value Reference Range Interpretation Comments Basophils (%) (Auto) (test code = 706-2) 0.1 0.0-1.0 [facility] HospitalIM GRANULOCYTES %2019-02-18 05:47:00* Test Item Value Reference Range Interpretation Comments IM GRANULOCYTES % (test code = IM GRANULOCYTES %) 0.6 0.0- 1.0 [facility] HospitalNeutrophils # (Auto)2019-02-18 05:47:00* Test Item Value Reference Range Interpretation Comments Neutrophils # (Auto) (test code = 751-8) 13.7 2.1-6.9 H [facility] HospitalLymphocytes # (Auto)2019-02-18 05:47:00* Test Item Value Reference Range Interpretation Comments Lymphocytes # (Auto) (test code = 35034-7) 0.9 1.0-3.2 L [facility] HospitalMonocytes # (Auto)2019-02-18 05:47:00* Test Item Value Reference Range Interpretation Comments Monocytes # (Auto) (test code = 742-7) 1.3 0.2-0.8 H [facility] HospitalEosinophils # (Auto)2019-02-18 05:47:00* Test Item Value Reference Range Interpretation Comments Eosinophils # (Auto) (test code = 711-2) 0.2 0.0-0.4 [facility] HospitalBasophils # (Auto)2019-02-18 05:47:00* Test Item Value Reference Range Interpretation Comments Basophils # (Auto) (test code = 704-7) 0.0 0.0-0.1 [facility] HospitalAbsolute Immature Granulocyte (auto 2019-02-18 05:47:00* Test Item Value Reference Range Interpretation Comments Absolute Immature Granulocyte (auto (chel t code = Absolute Immature Granulocyte (auto) 0.10 0-0.1 [facility] HospitalBedside Zutedwc9984-81-89 22:52:00* Test Item Value Reference Range Interpretation Comments Bedside Glucose (test code = 62194-0) 246 70-120 H Meter ID: [id number] [facility] Healthcare ConroeTotal Bilirubin 2019-02-17 06:35:00* Test Item Value Reference Range Interpretation Comments Total Bilirubin (test code = 1975-2) 1.5 0.2-1.2 H [facility] HospitalAspartate Amino Transf (AST/SGOT) 2019-02-17 06:35:00* Test Item Value Reference Range Interpretation Comments Aspartate Amino Transf (AST/SGOT) (test code = Aspartate Amino Transf (AST/SGOT)) 18 5-34 [facility] HospitalAlanine Aminotransferase (ALT/SGPT) 2019-02-17 06:35:00* Test Item Value Reference Range Interpretation Comments Alanine Aminotransferase (ALT/SGPT) (test code = 1742-6) 20 0-55 [facility] HospitalTotal Soobccd8188-95-18 06:35:00* Test Item Value Reference Range Interpretation Comments Total Protein (test code = 2885-2) 6.8 6.5-8.1 [facility] HospitalAlbumin2019-12-11 06:35:00* Test Item Value Reference Range Interpretation Comments Albumin (test code = 1751-7) 3.7 3.5-5.0 [facility] HospitalGlobulin2019-12-11 06:35:00* Test Item Value Reference Range Interpretation Comments Globulin (test code = 89628-1) 3.1 2.3-3.5 [facility] HospitalAlbumin/Globulin Eovdr5029-64-31 06:35:00 * Test Item Value Reference Range Interpretation Comments Albumin/Globulin Ratio (test code = 1759-0) 1.2 0.8-2.0 [facility] HospitalAlkaline Hfguokuywjo9049-89-75 06:35:00* Test Item Value Reference Range Interpretation Comments Alkaline Phosphatase (test code = 6768-6) 77 40-150 [facility] HospitalUrine CON7131-31-28 14:30:00* Test Item Value Reference Range Interpretation Comments Urine WBC (test code = 5821-4) 21-50 0-5 H [facility] HospitalUrine OHF5173-60-82 14:30:00* Test Item Value Reference Range Interpretation Comments Urine RBC (test code = 16147-4) 11-20 0-5 H [facility] HospitalUrine Xqjnjpwf6281-09-79 14:30:00* Test Item Value Reference Range Interpretation Comments Urine Bacteria (test code = 99201-0) RARE NONE [facility] HospitalUrine Epithelial Fxznp2878-85-48 14:30:00 * Test Item Value Reference Range Interpretation Comments Urine Epithelial Cells (test code = 99884-0) NONE NONE [facility] HospitalUrine Trryi1069-93-33 14:09:00* Test Item Value Reference Range Interpretation Comments Urine Color (test code = 5778-6) YELLOW YELLOW [facility] HospitalUrine Bpnezmw2344-46-11 14:09:00* Test Item Value Reference Range Interpretation Comments Urine Clarity (test code = 56657-4) SL CLOUDY CLEAR H [facility] HospitalUrine Specific Lryhecx3540-53-85 14:09:00 * Test Item Value Reference Range Interpretation Comments Urine Specific Rand (test code = 5811-5) 1.010 1.010-1.02 5 [facility] HospitalUrine kM0451-89-77 14:09:00* Test Item Value Reference Range Interpretation Comments Urine pH (test code = 17796-4) 6 5-7 [facility] HospitalUrine Leukocyte Dpdplnls7178-91-51 14:09:00* Test Item Value Reference Range Interpretation Comments Urine Leukocyte Esterase (test code = 5799-2) NEGATIVE NEGATIVE [facility] HospitalUrine Jbuxjus1200-90-34 14:09:00* Test Item Value Reference Range Interpretation Comments Urine Nitrite (test code = 28597-1) NEGATIVE NEGATIVE [facility] HospitalUrine Dgtrnqq6364-05-59 14:09:00* Test Item Value Reference Range Interpretation Comments Urine Protein (test code = 5804-0) TRACE NEGATIVE H [facility] HospitalUrine Glucose (UA)2019-02-16 14:09:00* Test Item Value Reference Range Interpretation Comments Urine Glucose (UA) (test code = 2349-9) 3+ NEGATIVE H [facility] HospitalUrine Rzstucb2586-86-15 14:09:00* Test Item Value Reference Range Interpretation Comments Urine Ketones (test code = 58127-8) NEGATIVE NEGATIVE [facility] HospitalUrine Irkklkyaqtia4491-61-48 14:09:00* Test Item Value Reference Range Interpretation Comments Urine Urobilinogen (test code = 12739-4) 0.2 0.2-1 [facility] HospitalUrine Bnpnnsmvs1771-73-56 14:09:00* Test Item Value Reference Range Interpretation Comments Urine Bilirubin (test code = 1978-6) NEGATIVE NEGATIVE [facility] HospitalUrine Thybe0025-39-96 14:09:00* Test Item Value Reference Range Interpretation Comments Urine Blood (test code = 96577-2) MODERATE NEGATIVE [facility] HospitalCT ABDOMEN/PELVIS LV7361-62-36 13:44:00 [facility] [address] [place] [address] Patient Name: ZAYNAB FLORES MR #: [id number] : 1965 Age/Sex: 54/M Req #: [id number] [facility] Physician: Ordered by: DOMENIC CHAPMAN MD, MD Report #: [id number] Location: ER Room/Bed: Procedure: 1210-[address]/CT ABDOMEN/PELVIS WO Exam Date: 02/16/19 Exam Time: 1250 REPORT STATUS: Signed TECHNIQUE: CT of the abdomen and pelvis WITHOUT intravenous contrast and wit hout oral contrast. Dose modulation, iterative reconstruction, and/or weight-b ased adjustment of the mA/kV was utilized to reduce the radiation dose to as l ow as reasonably achievable. INDICATION: STONE PROTOCOL [id number] 1250 Y. COMPARISON: CT from 07/08/2017. FINDINGS: [...] 1:58 PM Dictated By: DANYELLE MCDONALD MD 55 T ranscribed By: MICHEAL on 02/16/191357 COPY TO: DOMENIC CHAPMAN Magnesium Fxupf7256-71-83 13:31:00* Test Item Value Reference Range Interpretation Comments Magnesium Level (test code = 59078-5) 1.8 1.3-2.1 [facility] HospitalLipase2019-12-10 13:31:00* Test Item Value Reference Range Interpretation Comments Lipase (test code = 3040-3) 47 [facility] HospitalMagnesium Omrtc3448-14-72 13:31:00* Test Item Value Reference Range Interpretation Comments Magnesium Level (test code = 97701-3) 1.8 1.3-2.1 [facility] HospitalLipase2019-12-10 13:31:00* Test Item Value Reference Range Interpretation Comments Lipase (test code = 3040-3) 47 878 [facility] HospitalMagnesium Pmdcw9007-10-63 13:31:00* Test Item Value Reference Range Interpretation Comments Magnesium Level (test code = 96497-1) 1.8 1.3-2.1 [facility] HospitalLipase2019-12-10 13:31:00* Test Item Value Reference Range Interpretation Comments Lipase (test code = 3040-3) 47 8 [facility] HospitalABDOMEN1VIEW (KUB)2019-02-15 10:51:00 [place] [address] [place] [address] Patient Name: ZAYNAB FLORES MR #: [id number] : 1965 Age/Sex: 54/M Req #: [id number] Adm Physician: Ordered by: CARLOS COX MD Report #: [id number] Location: [facility] Room/Bed: Procedure: [id number] DX/ABDOMEN-1VIEW (KUB) Exam Date: 02/15/19 Exam Jerry e: 1025 REPORT STATUS: Signed Ab kezia, one view Clinical indication: Renal calculus Comparison: [...] A M Dictated By: BRETT MARTIN MD 1052 Transcribed By: MICHEAL on 02/15/19 1052 COPY T O: CARLOS COX MD ABDOMEN-1VIEW (KUB)2018-11-27 11:39:00 [place] [address] Patient Name: ZAYNAB FLORES MR #: [id number] : 1965 Age/Sex: 53/M Req #: [id number] Adm Physician: Ordered by: CARLOS COX MD Report #: [id number] Location: [facility] Room/Bed: Procedure: [id number] DX/ABDOMEN-1VIEW (KUB) Exam Date: 11/27/18 Exam Jerry [...] 1143 COPY TO: CARLOS COX MD Blood Xteefuy1168-16-34 21:14:00* Test Item Value Reference Range Interpretation Comments Blood Culture (test code = 00886380) NO GROWTH AFTER 5 DAYS, FINAL REPORT [facility] Iakkqvu8939-20-27 21:14:00* Test Item Value Reference Range Interpretation Comments Blood Culture (test code = 66627075) NO GROWTH AFTER 5 DAYS, FINAL REPORT [facility] Yhyweok1494-67-09 21:14:00* Test Item Value Reference Range Interpretation Comments Blood Culture (test code = 90190636) NO GROWTH AFTER 5 DAYS, FINAL REPORT [facility] HospitalUrine Uvrfbnw3271-70-94 08:06:00* Test Item Value Reference Range Interpretation Comments Urine Culture (test code = 630-4) No Result Data Provided [facility] HospitalUrine Kafheqh2839-52-88 08:06:00* Test Item Value Reference Range Interpretation Comments Urine Culture (test code = 630-4) No Result Data Provided [facility] HospitalUrine Xecrzlq7170-80-90 08:06:00* Test Item Value Reference Range Interpretation Comments Urine Culture (test code = 630-4) No Result Data Provided [facility] HospitalBedside Sodxidj9526-75-75 11:54:00* Test Item Value Reference Range Interpretation Comments Bedside Glucose (test code = 44266-6) 126 70-120 H Meter ID: [id number] Regional Medical Center at Greenvilleodium Level 2018-09-03 11:47:00* Test Item Value Reference Range Interpretation Comments Sodium Level (test code = 2951-2) 136 136-145 [facility] HospitalPotassium Frfsz3261-13-86 11:47:00* Test Item Value Reference Range Interpretation Comments Potassium Level (test code = 2823-3) 3.5 3.5-5.1 [facility] HospitalChloride Njwvy0756-30-93 11:47:00* Test Item Value Reference Range Interpretation Comments Chloride Level (test code = 2075-0) 107 98-107 [facility] HospitalCarbon Dioxide Mcpbg5480-12-54 11:47:00* Test Item Value Reference Range Interpretation Comments Carbon Dioxide Level (test code = 2028-9) 21 22-29 L [facility] HospitalAnion Tis9680-68-15 11:47:00* Test Item Value Reference Range Interpretation Comments Anion Gap (test code = 54483-5) 11.5 8-16 [facility] HospitalBlood Urea Ockzpyoy0926-88-31 11:47:00* Test Item Value Reference Range Interpretation Comments Blood Urea Nitrogen (test code = 3094-0) 9 7-26 [facility] HospitalCreatinine2019-06-27 11:47:00* Test Item Value Reference Range Interpretation Comments Creatinine (test code = 2160-0) 0.91 0.72-1.25 [facility] HospitalBUN/Creatinine Mopuh5604-36-34 11:47:00* Test Item Value Reference Range Interpretation Comments BUN/Creatinine Ratio (test code = 3097-3) 10 25 [facility] HospitalEstimat Glomerular Filtration Rate 2018-09-03 11:47:00* Test Item Value Reference Range Interpretation Comments Estimat Glomerular Filtration Rate (test code = 409350093) > 60 >60 Ranges were taken from the National Kidney Disease Education Program and the [facility] literature.Reference ranges:60 or greater: Oaeqnx10-80 ( for 3 consecutive months): Chronic kidney disease 15 or less: Kidney failureCHI Citizens Medical CenterGlucose Kttqd8077-94-36 11:47:00* Test Item Value Reference Range Interpretation Comments Glucose Level (test code = BOA5077) 144 74-118 H [facility] HospitalCalcium Nwmgx1641-52-51 11:47:00* Test Item Value Reference Range Interpretation Comments Calcium Level (test code = 64945-4) 9.1 8.4-10.2 [facility] HospitalUrine Pvnssfq6344-54-91 09:48:00* Test Item Value Reference Range Interpretation Comments Urine Culture (test code = 630-4) Organism: YEAST SPECIES [facility] HospitalCHEST 2 BFYYF8880-33-39 06:05:00 [facility] [address] [place] [address] Patient Name: ZAYNAB FLORES MR #: [id number] : 1965 Age/Sex: 53/M Req #: [id number] Adm Physician: LIVAN CASTANEDA MD Ordered by: LIVAN CASTANEDA MD Report #: [id number] Location: MED/SURG2 Room/Bed: [facility] Procedure: 02 DX/CHEST 2 VIEWS Exam [...] Interpretation Comments Blood Culture (test code = 55230642) NO GROWTH AFTER 24 [facility]RS [facility] Oirxznxde2456-58-72 05:50:00* Test Item Value Reference Range Interpretation Comments Total Bilirubin (test code = 1975-2) 1.7 0.2-1.2 H [facility] HospitalAspartate Amino Transf (AST/SGOT) 2018-09-02 05:50:00* Test Item Value Reference Range Interpretation Comments Aspartate Amino Transf (AST/SGOT) (test code = Aspartate Amino Transf (AST/SGOT)) 18 5-34 [facility] HospitalAlanine Aminotransferase (ALT/SGPT) 2018-09-02 05:50:00* Test Item Value Reference Range Interpretation Comments Alanine Aminotransferase (ALT/SGPT) (test code = 1742-6) 26 0-55 [facility] HospitalTotal Psksdpb9510-30-92 05:50:00* Test Item Value Reference Range Interpretation Comments Total Protein (test code = 2885-2) 6.8 6.5-8.1 [facility] HospitalAlbumin2019-06-26 05:50:00* Test Item Value Reference Range Interpretation Comments Albumin (test code = 1751-7) 3.5 3.5-5.0 [facility] HospitalGlobulin2019-06-26 05:50:00* Test Item Value Reference Range Interpretation Comments Globulin (test code = 26649-5) 3.3 2.3-3.5 [facility] HospitalAlbumin/Globulin Slnfl6290-65-04 05:50:00 * Test Item Value Reference Range Interpretation Comments Albumin/Globulin Ratio (test code = 1759-0) 1.1 0.8-2.0 [facility] HospitalAlkaline Bsgvgieefax3333-48-33 05:50:00* Test Item Value Reference Range Interpretation Comments Alkaline Phosphatase (test code = 6768-6) 76 40-150 [facility] HospitalWhite Blood Aihhk3488-89-92 05:36:00* Test Item Value Reference Range Interpretation Comments White Blood Count (test code = 6690-2) 13.57 4.8-10.8 H [facility] HospitalRed Blood Weayo6834-84-89 05:36:00* Test Item Value Reference Range Interpretation Comments Red Blood Count (test code = 789-8) 4.37 4.3-5.7 [facility] HospitalHemoglobin2019-06-26 05:36:00* Test Item Value Reference Range Interpretation Comments Hemoglobin (test code = 49843-3) 11.4 14.0-18.0 L [facility] HospitalHematocrit2019-06-26 05:36:00* Test Item Value Reference Range Interpretation Comments Hematocrit (test code = 4544-3) 35.2 38.2-49.6 L [facility] HospitalMean Corpuscular Ulgymo8331-95-85 05:36:00* Test Item Value Reference Range Interpretation Comments Mean Corpuscular Volume (test code = 787-2) 80.5 81-99 L [facility] HospitalMean Corpuscular Wllhatcgte2949-60-47 05:36:00* Test Item Value Reference Range Interpretation Comments Mean Corpuscular Hemoglobin (test code = 785-6) 26.1 28-32 L [facility] HospitalMean Corpuscular Hemoglobin Concent 2018-09-02 05:36:00* Test Item Value Reference Range Interpretation Comments Mean Corpuscular Hemoglobin Concent (test code = 786-4) 32.4 31-35 [facility] HospitalRed Cell Distribution Txdvb7602-65-76 05:36:00* Test Item Value Reference Range Interpretation Comments Red Cell Distribution Width (test code = 23116-4) 15.4 11.7 -14.4 H [facility] HospitalPlatelet Xtfjq2683-69-55 05:36:00* Test Item Value Reference Range Interpretation Comments Platelet Count (test code = 777-3) 244 140-360 [facility] HospitalNeutrophils (%) (Auto)2018-09-02 05:36:00 * Test Item Value Reference Range Interpretation Comments Neutrophils (%) (Auto) (test code = 44641-6) 67.5 38.7-80.0 [facility] HospitalLymphocytes (%) (Auto)2018-09-02 05:36:00 * Test Item Value Reference Range Interpretation Comments Lymphocytes (%) (Auto) (test code = 736-9) 19.0 18.0-39.1 [facility] HospitalMonocytes (%) (Auto)2018-09-02 05:36:00* Test Item Value Reference Range Interpretation Comments Monocytes (%) (Auto) (test code = 5905-5) 10.2 4.4-11.3 [facility] HospitalEosinophils (%) (Auto)2018-09-02 05:36:00 * Test Item Value Reference Range Interpretation Comments Eosinophils (%) (Auto) (test code = 713-8) 2.5 0.0-6.0 [facility] HospitalBasophils (%) (Auto)2018-09-02 05:36:00* Test Item Value Reference Range Interpretation Comments Basophils (%) (Auto) (test code = 706-2) 0.4 0.0-1.0 [facility] HospitalIM GRANULOCYTES %2018-09-02 05:36:00* Test Item Value Reference Range Interpretation Comments IM GRANULOCYTES % (test code = IM GRANULOCYTES %) 0.4 0.0- 1.0 [facility] HospitalNeutrophils # (Auto)2018-09-02 05:36:00* Test Item Value Reference Range Interpretation Comments Neutrophils # (Auto) (test code = 751-8) 9.2 2.1-6.9 H [facility] HospitalLymphocytes # (Auto)2018-09-02 05:36:00* Test Item Value Reference Range Interpretation Comments Lymphocytes # (Auto) (test code = 88229-9) 2.6 1.0-3.2 [facility] HospitalMonocytes # (Auto)2018-09-02 05:36:00* Test Item Value Reference Range Interpretation Comments Monocytes # (Auto) (test code = 742-7) 1.4 0.2-0.8 H [facility] HospitalEosinophils # (Auto)2018-09-02 05:36:00* Test Item Value Reference Range Interpretation Comments Eosinophils # (Auto) (test code = 711-2) 0.3 0.0-0.4 [facility] HospitalBasophils # (Auto)2018-09-02 05:36:00* Test Item Value Reference Range Interpretation Comments Basophils # (Auto) (test code = 704-7) 0.1 0.0-0.1 [facility] HospitalAbsolute Immature Granulocyte (auto 2018-09-02 05:36:00* Test Item Value Reference Range Interpretation Comments Absolute Immature Granulocyte (auto (chel t code = Absolute Immature Granulocyte (auto) 0.06 0-0.1 [facility] HospitalLactic Acid Gxetp4306-86-93 01:40:00* Test Item Value Reference Range Interpretation Comments Lactic Acid Level (test code = Lactic Acid Level) 19.0 4.5- 19.8 [facility] HospitalLactic Acid Bdgea0257-29-93 01:40:00* Test Item Value Reference Range Interpretation Comments Lactic Acid Level (test code = Lactic Acid Level) 19.0 4.5- 19.8 [facility] HospitalLactic Acid Tisll0773-75-45 01:40:00* Test Item Value Reference Range Interpretation Comments Lactic Acid Level (test code = Lactic Acid Level) 19.0 4.5- 19.8 [facility] HospitalLactic Acid Iqauh1230-45-77 01:40:00* Test Item Value Reference Range Interpretation Comments Lactic Acid Level (test code = Lactic Acid Level) 19.0 4.5- 19.8 [facility] HospitalCHEST SINGLE (PORTABLE)2018-09-01 21:42:00 [facility] [address] [place] [address] Patient Name: ZAYNAB FLORES MR #: [id number] : 1965 Age/Sex: 53/M Req #: [id number] Adm Physician: Ordered by: PRIYA HUYNH MD Report #: [id number] Location: ER Room/Bed: Procedure: 062 5-0067 DX/CHEST [...] 09/01/182145 COPY TO: NITHYA HUYNH MD Urine VSC3046-15-81 21:38:00* Test Item Value Reference Range Interpretation Comments Urine WBC (test code = 5821-4) >50 0-5 H [facility] HospitalUrine XDW0157-49-11 21:38:00* Test Item Value Reference Range Interpretation Comments Urine RBC (test code = 91807-7) >50 0-5 H [facility] HospitalUrine Gbzxwxwu8458-23-44 21:38:00* Test Item Value Reference Range Interpretation Comments Urine Bacteria (test code = 95144-3) MANY NONE H [facility] HospitalUrine Epithelial Fqaeg4632-58-53 21:38:00 * Test Item Value Reference Range Interpretation Comments Urine Epithelial Cells (test code = 30204-5) MODERATE NONE [facility] HospitalUrine Wkctx6550-65-06 21:19:00* Test Item Value Reference Range Interpretation Comments Urine Color (test code = 5778-6) YELLOW YELLOW [facility] HospitalUrine Xrzdovf3037-62-05 21:19:00* Test Item Value Reference Range Interpretation Comments Urine Clarity (test code = 98755-5) CLOUDY CLEAR H [facility] HospitalUrine Specific Ndcvbvx9089-72-15 21:19:00 * Test Item Value Reference Range Interpretation Comments Urine Specific Rand (test code = 5811-5) 1.025 1.010-1.02 5 [facility] HospitalUrine iV3374-12-56 21:19:00* Test Item Value Reference Range Interpretation Comments Urine pH (test code = 26185-4) 6 5-7 [facility] HospitalUrine Leukocyte Smctasig9280-12-61 21:19:00* Test Item Value Reference Range Interpretation Comments Urine Leukocyte Esterase (test code = 70578-7) SMALL NEGATIV E [facility] HospitalUrine Wocouxr0769-78-12 21:19:00* Test Item Value Reference Range Interpretation Comments Urine Nitrite (test code = 33388-1) NEGATIVE NEGATIVE [facility] HospitalUrine Rhuiaha0374-88-82 21:19:00* Test Item Value Reference Range Interpretation Comments Urine Protein (test code = 32057-9) 2+ NEGATIVE H [facility] HospitalUrine Glucose (UA)2018-09-01 21:19:00* Test Item Value Reference Range Interpretation Comments Urine Glucose (UA) (test code = 22439-0) 3+ NEGATIVE [facility] Upsmyxm6573-49-73 21:19:00* Test Item Value Reference Range Interpretation Comments Urine Ketones (test code = 70177-7) NEGATIVE NEGATIVE [facility] Vdttiqgrrjvl7711-53-42 21:19:00* Test Item Value Reference Range Interpretation Comments Urine Urobilinogen (test code = 88479-7) 0.2 0.2-1 [facility] Cqkcqpfko3749-12-68 21:19:00* Test Item Value Reference Range Interpretation Comments Urine Bilirubin (test code = 1977-8) NEGATIVE NEGATIVE [facility] Ycjbi7859-26-65 21:19:00* Test Item Value Reference Range Interpretation Comments Urine Blood (test code = 47217-4) 3+ NEGATIVE [facility] HospitalNEPHROSTOMY CATHETER OXSWNBEC7479-55-77 12:48:00 [place] [address] Patient Name: ZAYNAB FLORES MR #: [id number] : 1965 Age/Sex: 53/M Req #: [id number] Adm Physician: Ordered by: CARLOS COX MD Report #: [id number] Location: OR Room/Bed: Procedure: [id number] DX/NEPHROSTOMY CATHETER EXCHANGE Exam Date: Exam T rudy: REPORT STATUS: Signed Proc edure: Right nephrostomy catheter injection and exchange for a nephroureteral stent. Medications: Versed 3 mg intravenous, Fentanyl 75 mcg intravenous gi bart in an incremental fashion. The patient's vital signs, including pulse oxi metry, were continuously monitored by the interventional radiology nurse. Cuac tion time was 60 minutes or less. [...] over a 0.035 " J-wire. A 5 [place]aguayan Kumpe catheter was then advanced over the wire and utilizing a 0.035" hydrophilic Glidewire the wire and cathet er was advanced into the bladder. An Amplatz 0.035 " superstiff wire was advan elysia into the bladder through the Kumpe catheter for firm control. A 10.2 [place]ayan 26 cm long nephroureteral stent was then [...] 1:02 PM Dictated By: LIV JOHNSTON DO 1410 Transcribed By: MICHEAL on 09/09/18 1620 COPY TO: CARLOS COX MD SPECIAL PROCEDURE IN CATH PJD9506-85-41 12:48:00 [place] [address] Patient Name: ZAYNAB FLORES MR #: [id number] : 1965 Age/Sex: 53/M Req #: [id number] [facility] Physician: Ordered by: CARLOS COX MD Report #: [id number] Location: OR Room/Bed: Procedure: [id number] IR/SPECIAL PROCEDURE IN DISABILITY LIAISON OFFICER Exam Date: Exam T rudy: REPORT STATUS: [...] over a 0.035 " J-wire. A 5 [place] Kumpe catheter was then advanced over the wire and utilizing a 0.035" hydrophilic Glidewire the wire and cathet er was advanced into the bladder. An Amplatz 0.035 " superstiff wire was advan elysia into the bladder through the Kumpe catheter for firm control. A 10.2 [place] 26 cm long nephroureteral stent was then [...] TO: CARLOS COX MD - NEPH CATH XLCSGVBA4047-43-31 16:18:00 Name: ZAYNAB FLORES [facility] : 1965 Age/S: 53 / M [address] [facility] Unit #: [id number] Loc: [facility] [place] [address] Phys: Jose Berger MD Acct: [id number] Di s Date: Status: [facility] PHONE #: Exam Date: 08/12/2018 1051 FAX #: Reason: EXAMS: CPT CODE: [id number] NEPH CATH EXCHA NGE 89841 Fluoro Time: 72 DAP (Gy m2 ): [...] pulse oximetry were continuously [facility]. Physician ieqb-ik-zlel sedation time was 11 minut . After [...] and was replaced with a new 12 [place]aguayan pigtail nephrostomy tube. This tube was coiled within the renal pelvis, was sutured to the skin and connected to a drainage bag. No complications. IMPRESSION: 1. Successful replacement of a right-sided nephrostomy tube using fluorosco pic guidance. 2. Nonobstructing stone within a lower calyx. This stone i s not in contact with the nephrostomy tube, which is positioned more blue crabber nially and with its tip in the renal pelvis. 3. Decompressed, no ndilated right renal collecting system and unremarkable right ureter. Fluoroscopy Time: 72 sec CAK : 21 mGy DAP : 3. 85 mGy sq cm PAGE 1 Signed Report (CONTINUED) Name: ZAYNAB FLORES [facility] : 1965 Age/S: 53 / M [address] [facility] Unit #: [id number] Loc: [place] [address] Phys: Rob Berger MD Acct: [id number] Dis Date: Status: [facility] PHONE #: [phone] Exam Date: 08/12/2018 1051 FAX #: [phone] Reason: EXAMS: CPT CODE: [id number] NEPH CATH EXCHANGE 67902 Fluoro Time: 72 DAP (Gy m2): 3.85 Air Kerma (mGy): 21 <Continued> at 1618 Reported and signed by: Rob Berger M.D. CC: Faina Guerrero DO; George Choudhary MD Technologist: JIMBO VALVERDE RT(R) Trnscb Date/Time: 08/17/2018 (1618) t.[email or web address].[email or web address] Orig Print D/T: S: 08/17/2018 (3540) PAGE 2 Signed Report ABDOMEN-1VIEW (KUB)2018-08-13 15:38:00 [place] [address] Patient Name: ZAYNAB FLORES MR #: [id number] : 1965 Age/Sex: 53/M Req #: [id number] Adm Physician: Ordered by: CARLOS COX MD Report #: [id number] Location: OR Room/Bed: Procedure: [id number] DX/ ABDOMEN-1VIEW (KUB) Exam Date: 08/13/18 Exam [...] 3:42 PM Dictated By: AMANDA SHELBY MD 1549 Transcribed By: MICHEAL on 08/13/18 1542 COPY TO: CARLOS COX MD GLUBED 2018-08-12 09:21:00* Test Item Value Reference Range Interpretation Comments GLUBED (test code = GLUBED) 122 mg/dL 74-106 H Performed by certified cap lining machine operator at [facility] PROTHROMBIN VFGH2741-53-39 15:27:00* Test Item Value Reference Range Interpretation [...] Mechanical prosthetic heart valves (2.5-3.5) THROMBOPLASTIN TIME WWCTCYN5137-45-57 15:27:00* Test Item Value Reference Range Interpretation Comments THROMBOPLASTIN TIME PARTIAL (test code = PTT) 32.2 seconds 25.0-36. 5 N CBC W/AUTO KZAL6251-09-14 15:19:00* Test Item Value Reference Range Interpretation [...] REQUIRED (test code = MDIFF) NO CHEM FHLKQ2444-02-49 22:43:0070[facility]annCHEM ILFUQ5956-24-11 22:43:0016 [facility] HermannCHEM STMXC5664-45-17 22:43:001.16[facility] HermannCHEM PANEL 2018-03-13 22:43:25194Lfkpccbx HermannCHEM LIBME1738-79-28 22:43:49600Wlkszysm HermannCHEM TMOOV1373-06-31 22:43:003.8[facility] HermannCHEM FSHDX3121-15-80 22:43:009.0[facility] HermannCHEM YVPVO4192-55-63 22:43:0030[facility] HermannCHEM ODOFN4220-56-99 22:43:85309Pkbtsngh HermannCHEM DXJVS4106-03-16 22:43:009.8 Memorial BqfzkulHMBWVOWYPC5954-89-63 22:43:008.3[facility] HermannHEMATOLOGY 2018-03-13 22:43:0059.7[facility] EhpbsubOUJQYCDELV0688-03-01 22:43:0028.6[facility]orial GpgeafsUVDJJWXCOE1115-79-95 22:43:002.9[facility] DslpjytEIYMOCAEKN2733-60-59 22:43:000.7[facility] SzmjtfvBJGLKTCDDO2589-86-95 22:43:000.3[facility] [place] CBWCIUIRGK4961-72-25 22:43:000.5[facility] IhroyssAWLFQSACZU4137-14-32 22:43:005.3 Memorial FkzxcnxLUBCBKTOPV8936-97-70 22:43:002.6[facility] HermannHEMATOLOGY 2018-03-13 22:43:75730Ymudpbbc KcxqijxJDQHLRNHQK8359-75-05 22:43:0015.1[facility] TgioprePTYGOFCUCQ8159-24-10 22:43:008.8[facility] ZndpclhWQVWLQWMSA9829-17-29 22:43:0014.3[facility] YoydehtDACCFZNFRD9246-68-04 22:43:008.9[facility] THHRQXUNAP4879-61-09 22:43:005.11[facility] HtwgleoGEOYJVZZTZ0020-87-95 22:43:00 43.2[facility]orial OcmiijxAEQMDGWMBD8609-37-38 22:43:0033.1[facility] HermannHEMATOLOGY 2018-03-13 22:43:00* Test Item Value Reference Range Interpretation Comments MCH (test code = MCH) 28.0 pg 27.0-31.0 Memorial MgmbprbCFCJASZUJY7906-09-18 22:43:0084.6[facility] HermannSPECIAL IZHHYTYUV8995-75-17 22:43:007.8[facility] HermannABDOMEN-1VIEW (KUB)2018-01-06 09:00:00 [facility] [address] [place] [address] Patient Name: ZAYNAB FLORES MR #: [id number] : 1965 Age/Sex: 52/M Req #: [id number] Adm Physician: Ordered by: CARLOS COX MD Report #: [id number] Location: OR Room/Bed: Procedure: [id number] DX/ ABDOMEN-1VIEW (KUB) Exam Date: 01/06/18 Exam [...] 01/06/18902 COPY TO: CARLOS COX MD Bedside Echkjna4365-56-63 07:49:00* Test Item Value Reference Range Interpretation Comments Bedside Glucose (test code = 98687-9) 161 70-120 H Meter ID: [id number] Community HospitalBlood Urea Nitrogen 2018-01-05 10:36:00* Test Item Value Reference Range Interpretation Comments Blood Urea Nitrogen (test code = 3094-0) 18 7- [facility] HospitalBUN/Creatinine Dzcoa0767-70-66 10:36:00* Test Item Value Reference Range Interpretation Comments BUN/Creatinine Ratio (test code = 3097-3) 17 6-25 [facility] Ttcsz8023-49-78 10:23:00* Test Item Value Reference Range Interpretation Comments Sodium Level (test code = 2951-2) 141 136-145 [facility] HospitalPotassium Dqsxt6777-27-81 10:23:00* Test Item Value Reference Range Interpretation Comments Potassium Level (test code = 2823-3) 3.6 3.5-5.1 [facility] HospitalChloride Drait1010-46-14 10:23:00* Test Item Value Reference Range Interpretation Comments Chloride Level (test code = 2075-0) 107 98-107 [facility] HospitalCarbon Dioxide Flonh7951-88-00 10:23:00* Test Item Value Reference Range Interpretation Comments Carbon Dioxide Level (test code = 2028-9) 24 22-29 [facility] HospitalAnion Uap4739-63-82 10:23:00* Test Item Value Reference Range Interpretation Comments Anion Gap (test code = 05321-9) 13.6 8-16 [facility] HospitalCreatinine2018-10-29 10:23:00* Test Item Value Reference Range Interpretation Comments Creatinine (test code = 2160-0) 1.04 0.72-1.25 [facility] HospitalEstimat Glomerular Filtration Rate 2018-01-05 10:23:00* Test Item Value Reference Range Interpretation Comments Estimat Glomerular Filtration Rate (test code = 716907456) > 60 >60 Ranges were taken from the National Kidney Disease Education Program and the [facility] literature.Reference ranges:60 or greater: Vfhjek13-27 ( for 3 consecutive months): Chronic kidney disease 15 or less: Kidney failureColumbus Community HospitalGlucose Mrlsl0687-89-33 10:23:00* Test Item Value Reference Range Interpretation Comments Glucose Level (test code = ZNK7221) 154 74-118 H [facility] HospitalCalcium Sweua9032-22-02 10:23:00* Test Item Value Reference Range Interpretation Comments Calcium Level (test code = 12398-5) 9.5 8.4-10.2 [facility]2017-09-26 12:30:00 [facility] [address] [facility] [place] [address] Patient Name: ZAYNAB FLORES MR #: [id number] : 1 04/03/1964 Age/Sex: 52/M Req #: [id number] Adm Physician: Ordered by: CARLOS COX MD Report #: [id number] Location: [facility]/ d: Procedure: [id number] DX/ABDOMEN-1VIEW (KUB) Exam Date: 09/26/17 Exam Time: [...] TO: CARLOS COX MD ABDOMEN-1VIEW (KUB)2017-09-02 06:32:00 [place] [address] Patient Name: ZAYNAB FLORES MR #: [id number] : 1965 Age/Sex: 52/M Req #: [id number] Adm Physician: Ordered by: CARLOS COX MD Report #: [id number] Location: OR Room/Bed: Procedure: [id number] DX/ABDOMEN-1VIEW (KUB) Exam D ate: Exam Time: [...] 09/02/17635 COPY TO: CARLOS COX MD Bedside Yoxhove4063-98-04 12:01:00* Test Item Value Reference Range Interpretation Comments Bedside Glucose (test code = 67294-8) 172 70-120 H Meter ID: [id number] [facility] Greenvilleodium Level 2017-07-09 07:18:00* Test Item Value Reference Range Interpretation Comments Sodium Level (test code = 2951-2) 139 136-145 [facility] HospitalPotassium Rfgxb8537-09-59 07:18:00* Test Item Value Reference Range Interpretation Comments Potassium Level (test code = 2823-3) 3.7 3.5-5.1 [facility] HospitalChloride Luqaz7470-61-55 07:18:00* Test Item Value Reference Range Interpretation Comments Chloride Level (test code = 2075-0) 108 98-107 H [facility] HospitalCarbon Dioxide Qqcmx3222-57-69 07:18:00* Test Item Value Reference Range Interpretation Comments Carbon Dioxide Level (test code = 2028-9) 22 22-29 [facility] HospitalAnion Gfm9673-04-61 07:18:00* Test Item Value Reference Range Interpretation Comments Anion Gap (test code = 83289-1) 12.7 8-16 [facility] HospitalBlood Urea Sivgrsxh0304-94-18 07:18:00* Test Item Value Reference Range Interpretation Comments Blood Urea Nitrogen (test code = 3094-0) 18 7-26 [facility] HospitalCreatinine2018-05-02 07:18:00* Test Item Value Reference Range Interpretation Comments Creatinine (test code = 2160-0) 1.46 0.72-1.25 H [facility] HospitalBUN/Creatinine Lwsxj8517-87-60 07:18:00* Test Item Value Reference Range Interpretation Comments BUN/Creatinine Ratio (test code = 3097-3) 12 6-25 [facility] HospitalEstimat Glomerular Filtration Rate 2017-07-09 07:18:00* Test Item Value Reference Range Interpretation Comments Estimat Glomerular Filtration Rate (test code = 85275-4) 50 >60 L Ranges were taken from the National Kidney Disease Education Program and the [facility]ney Foundation literature.Reference ranges:60 or greater: Clbice86-51 ( for 3 consecutive months): Chronic kidney disease 15 or less: Kidney failureCHI Citizens Medical CenterGlucose Owoxz5740-12-33 07:18:00* Test Item Value Reference Range Interpretation Comments Glucose Level (test code = IBD5421) 142 74-118 H [facility] HospitalCalcium Iivrk7641-90-59 07:18:00* Test Item Value Reference Range Interpretation Comments Calcium Level (test code = 29427-3) 8.5 8.4-10.2 [facility] HospitalTotal Amyelvnpp0929-23-03 07:18:00* Test Item Value Reference Range Interpretation Comments Total Bilirubin (test code = 1975-2) 1.4 0.2-1.2 H [facility] HospitalAspartate Amino Transf (AST/SGOT) 2017-07-09 07:18:00* Test Item Value Reference Range Interpretation Comments Aspartate Amino Transf (AST/SGOT) (test code = Aspartate Amino Transf (AST/SGOT)) 19 5-34 [facility] HospitalAlanine Aminotransferase (ALT/SGPT) 2017-07-09 07:18:00* Test Item Value Reference Range Interpretation Comments Alanine Aminotransferase (ALT/SGPT) (test code = 1742-6) 23 0-55 [facility] HospitalTotal Lyuqzjc8318-51-08 07:18:00* Test Item Value Reference Range Interpretation Comments Total Protein (test code = 2885-2) 6.4 6.5-8.1 L [facility] HospitalAlbumin2018-05-02 07:18:00* Test Item Value Reference Range Interpretation Comments Albumin (test code = 1751-7) 3.3 3.5-5.0 L [facility] HospitalGlobulin2018-05-02 07:18:00* Test Item Value Reference Range Interpretation Comments Globulin (test code = 23757-7) 3.1 2.3-3.5 [facility] HospitalAlbumin/Globulin Lotoq0326-58-80 07:18:00 * Test Item Value Reference Range Interpretation Comments Albumin/Globulin Ratio (test code = 1759-0) 1.1 0.8-2.0 [facility] HospitalAlkaline Awsyfzxoajt8526-80-52 07:18:00* Test Item Value Reference Range Interpretation Comments Alkaline Phosphatase (test code = 6768-6) 65 40-150 [facility] HospitalWhite Blood Icgov5110-25-96 06:46:00* Test Item Value Reference Range Interpretation Comments White Blood Count (test code = 6690-2) 7.47 4.8-10.8 [facility] HospitalRed Blood Zihtw6867-45-25 06:46:00* Test Item Value Reference Range Interpretation Comments Red Blood Count (test code = 789-8) 4.51 4.3-5.7 [facility] HospitalHemoglobin2018-05-02 06:46:00* Test Item Value Reference Range Interpretation Comments Hemoglobin (test code = 06475-3) 12.5 14.0-18.0 L [facility] HospitalHematocrit2018-05-02 06:46:00* Test Item Value Reference Range Interpretation Comments Hematocrit (test code = 4544-3) 38.4 38.2-49.6 [facility] HospitalMean Corpuscular Lpikjv1647-93-99 06:46:00* Test Item Value Reference Range Interpretation Comments Mean Corpuscular Volume (test code = 787-2) 85.1 81-99 [facility] HospitalMean Corpuscular Ssqknkbxzs8807-13-03 06:46:00* Test Item Value Reference Range Interpretation Comments Mean Corpuscular Hemoglobin (test code = 785-6) 27.7 28-32 L [facility] HospitalMean Corpuscular Hemoglobin Concent 2017-07-09 06:46:00* Test Item Value Reference Range Interpretation Comments Mean Corpuscular Hemoglobin Concent (test code = 786-4) 32.6 31-35 [facility] HospitalRed Cell Distribution Jlosp1098-88-70 06:46:00* Test Item Value Reference Range Interpretation Comments Red Cell Distribution Width (test code = 17758-7) 15.0 11.7 -14.4 H [facility] HospitalPlatelet Tglop0773-81-35 06:46:00* Test Item Value Reference Range Interpretation Comments Platelet Count (test code = 777-3) 192 140-360 [facility] HospitalNeutrophils (%) (Auto)2017-07-09 06:46:00 * Test Item Value Reference Range Interpretation Comments Neutrophils (%) (Auto) (test code = 88788-9) 73.5 38.7-80.0 [facility] HospitalLymphocytes (%) (Auto)2017-07-09 06:46:00 * Test Item Value Reference Range Interpretation Comments Lymphocytes (%) (Auto) (test code = 736-9) 11.8 18.0-39.1 L [facility] HospitalMonocytes (%) (Auto)2017-07-09 06:46:00* Test Item Value Reference Range Interpretation Comments Monocytes (%) (Auto) (test code = 5905-5) 12.0 4.4-11.3 H [facility] HospitalEosinophils (%) (Auto)2017-07-09 06:46:00 * Test Item Value Reference Range Interpretation Comments Eosinophils (%) (Auto) (test code = 713-8) 2.3 0.0-6.0 [facility] HospitalBasophils (%) (Auto)2017-07-09 06:46:00* Test Item Value Reference Range Interpretation Comments Basophils (%) (Auto) (test code = 706-2) 0.1 0.0-1.0 [facility] HospitalIM GRANULOCYTES %2017-07-09 06:46:00* Test Item Value Reference Range Interpretation Comments IM GRANULOCYTES % (test code = IM GRANULOCYTES %) 0.3 0.0- 1.0 [facility] HospitalNeutrophils # (Auto)2017-07-09 06:46:00* Test Item Value Reference Range Interpretation Comments Neutrophils # (Auto) (test code = 751-8) 5.5 2.1-6.9 [facility] HospitalLymphocytes # (Auto)2017-07-09 06:46:00* Test Item Value Reference Range Interpretation Comments Lymphocytes # (Auto) (test code = 19354-2) 0.9 1.0-3.2 L [facility] HospitalMonocytes # (Auto)2017-07-09 06:46:00* Test Item Value Reference Range Interpretation Comments Monocytes # (Auto) (test code = 742-7) 0.9 0.2-0.8 H [facility] HospitalEosinophils # (Auto)2017-07-09 06:46:00* Test Item Value Reference Range Interpretation Comments Eosinophils # (Auto) (test code = 711-2) 0.2 0.0-0.4 [facility] HospitalBasophils # (Auto)2017-07-09 06:46:00* Test Item Value Reference Range Interpretation Comments Basophils # (Auto) (test code = 704-7) 0.0 0.0-0.1 [facility] HospitalAbsolute Immature Granulocyte (auto 2017-07-09 06:46:00* Test Item Value Reference Range Interpretation Comments Absolute Immature Granulocyte (auto (chel t code = Absolute Immature Granulocyte (auto) 0.02 0-0.1 [facility] HospitalProthrombin Dwbj7140-89-81 06:58:00* Test Item Value Reference Range Interpretation Comments Prothrombin Time (test code = 5902-2) 13.1 11.9-14.5 [facility] HospitalProthromb Time International Ratio 2017-07-08 06:58:00* Test Item Value Reference Range Interpretation Comments Prothromb Time International Ratio (test code = 6301-6) 1.07 Oral Anticoagulant Therapy INR Values:1. Low Intensity Therapy 1.5 - 2.02 . Moderate Intensity Therapy 2.0 - 3.03. High Intensity Therapy(1) 2.5 - 3. 54. High Intensity Therapy(2) 3.0 - 4.05. Panic Value INR > 5.0 [facility] HospitalActivated Partial Thromboplast Time 2017-07-08 06:58:00* Test Item Value Reference Range Interpretation Comments Activated Partial Thromboplast Time (test code = 86243-9) 31.3 23.8-35.5 [facility] HospitalAmylase Xezog4575-28-78 06:57:00* Test Item Value Reference Range Interpretation Comments Amylase Level (test code = 1798-8) 29 25-125 [facility] HospitalLipase2018-05-01 06:57:00* Test Item Value Reference Range Interpretation Comments Lipase (test code = 3040-3) 72 8-78 [facility] HospitalUrine JLJ2931-19-90 05:43:00* Test Item Value Reference Range Interpretation Comments Urine WBC (test code = 5821-4) 6-10 0-5 H [facility] HospitalUrine NFR8112-78-48 05:43:00* Test Item Value Reference Range Interpretation Comments Urine RBC (test code = 43948-5) 21-50 0-5 H [facility] HospitalUrine Hypejgzk2911-68-14 05:43:00* Test Item Value Reference Range Interpretation Comments Urine Bacteria (test code = 79374-3) RARE NONE [facility] HospitalUrine Epithelial Vafzh5219-56-19 05:43:00 * Test Item Value Reference Range Interpretation Comments Urine Epithelial Cells (test code = 84408-2) RARE NONE [facility] HospitalUrine Cpyga0510-32-39 05:24:00* Test Item Value Reference Range Interpretation Comments Urine Color (test code = 5778-6) YELLOW YELLOW [facility] HospitalUrine Godqsqr3338-16-86 05:24:00* Test Item Value Reference Range Interpretation Comments Urine Clarity (test code = 41895-9) CLEAR CLEAR [facility] HospitalUrine Specific Yolpftc1498-35-64 05:24:00 * Test Item Value Reference Range Interpretation Comments Urine Specific Rand (test code = 5811-5) 1.025 1.010-1.02 5 [facility] HospitalUrine xA9008-49-41 05:24:00* Test Item Value Reference Range Interpretation Comments Urine pH (test code = 71755-6) 5 5-7 [facility] HospitalUrine Leukocyte Hrwjhrgn8774-77-04 05:24:00* Test Item Value Reference Range Interpretation Comments Urine Leukocyte Esterase (test code = 5799-2) NEGATIVE NEGATIVE [facility] HospitalUrine Ccjbkzx5333-33-24 05:24:00* Test Item Value Reference Range Interpretation Comments Urine Nitrite (test code = 28600-3) NEGATIVE NEGATIVE [facility] HospitalUrine Ohelanh0160-64-09 05:24:00* Test Item Value Reference Range Interpretation Comments Urine Protein (test code = 5804-0) 1+ NEGATIVE H [facility] Glucose (UA)2017-07-08 05:24:00* Test Item Value Reference Range Interpretation Comments Urine Glucose (UA) (test code = 2349-9) 2+ NEGATIVE H [facility] HospitalUrine Zcgqstd6005-90-54 05:24:00* Test Item Value Reference Range Interpretation Comments Urine Ketones (test code = 53465-3) NEGATIVE NEGATIVE [facility] Zvpemimzidgi3066-58-28 05:24:00* Test Item Value Reference Range Interpretation Comments Urine Urobilinogen (test code = 46204-9) 0.2 0.2-1 [facility] HospitalUrine Gcydxqnln9620-10-04 05:24:00* Test Item Value Reference Range Interpretation Comments Urine Bilirubin (test code = 1978-6) NEGATIVE NEGATIVE [facility] HospitalUrine Wwbuv7956-83-09 05:24:00* Test Item Value Reference Range Interpretation Comments Urine Blood (test code = 38368-0) 2+ NEGATIVE H [facility] HospitalURINALYSIS2013-10-02 18:30:00>182[facility] IimrblgYROVMECWTU1919-27-65 18:30:00Occasional /LPF *NA*(12/09/2012 13:30:00) [facility] XcgacsoARQWNERUEG0779-82-94 18:30:009[facility] HermannURINALYSIS 2012-12-09 18:30:00Clear (12/09/2012 13:30:00) [facility]annURINALYSIS 2012-12-09 18:30:00Negative mg/dL (12/09/2012 13:30:00) [facility] NMYIZHVBMU2415-01-14 18:30:005.0[facility] DuqhljkXOPRCOBYQV4964-22-23 18:30:00 1.015[facility] FnnfmhlKJVTWYCSEE1765-54-24 18:30:00Large *ABN*(12/09/2012 13:30:00) [facility] GytbrdzHSUKXIKKJU8965-88-06 18:30:002.0[facility] HYSQDMBYLJ8978-97-60 18:30:00Positive *ABN*(12/09/2012 13:30:00) [facility] UsgpikiVUTMJMWWVB1344-83-49 18:30:00Negative (12/09/2012 13:30:00) [facility] RmmbydhKKLEPCRSRI0398-34-01 18:30:00Negative mg/dL *NA*(12/09/2012 13:30:00) [facility] LftwkpdQFTMFHUGAY5898-11-07 18:30:00Negative mg/dL *NA*(12/09/2012 13:30:00) [facility] AusqdwdVJQGQRDGCP0803-35-10 18:30:00Negative *NA*(12/09/2012 13:30:00) [facility] VxxfpowKAITYVEOZ4757-99-96 15:20:0078[facility] [place] DLZABCETE1310-69-32 15:20:0029[facility] QjczcwyPQMVLXYZO2315-69-73 15:20:001.1 [facility] EjryykoMQEHNHISB9934-22-36 15:20:07694Pnncoozz HermannCHEMISTRY 2012-12-04 15:20:0015[facility] AgaussuORARVTYUD5011-47-22 15:20:008.7[facility] KunqlzqESREWPPAA9450-20-22 15:20:003.9[facility] RsrloeoCWQCCZWBS1243-45-97 15:20:53399Wklwvqpm KbkmvviMRBUVGQNS2248-53-82 15:20:72095Zstwlxvf Stone ZLCNNULVV7862-88-61 15:20:0011.9[facility] IlzpxdgYKCEGTQTAV1502-27-96 15:20:00 11.7[facility]orial WzwcjjoSLBRCWMCAY4300-43-26 15:20:0083.6[facility] HermannHEMATOLOGY 2012-12-04 15:20:0036.1[facility] ZellhaiACSLYAVFVU7068-99-77 15:20:0014.2[facility] QngdcvsKNTJRWWWMX5733-50-76 15:20:94459Vxnlssbz TqjbeytPBENWUHRCF4656-40-57 15:20:008.7[facility] KohrrgbHKFEGKFJHP8163-36-00 15:20:004.32[facility] [place] KELYVVBZZI0773-41-21 15:20:0032.3[facility] AdufrpuZICVRGYLBA0601-97-32 15:20:00* Test Item Value Reference Range Interpretation Comments MCH (test code = MCH) 27.0 pg 27.0-31.0 N [facility] MyqynvnFWUEETTZDZ1423-94-34 15:20:007.0[facility]ann[facility]OLOGY 2012-12-04 15:20:005.0[facility] ArvachcSTYKUCZMID5601-86-06 15:20:000.2[facility] MqegyajJOLJGUKHMS2713-78-56 15:20:000.1[facility] TjgpdalSJCMIQMGTJ5221-96-48 15:20:000.6[facility] XvhrgdaUPPIVAZJTE0425-37-09 15:20:001.2[facility] XOAUMLNZHM3491-90-91 15:20:0072.1[facility] HrufejaHHFKYTUZJA5768-06-18 15:20:00 2.1[facility] CwyuomgXCZXXVIKGK6228-06-32 15:20:008.7[facility]annHEMATOLOGY 2012-12-04 15:20:0016.9[facility] ZofdxybFRBGDOWLUS8720-87-32 15:20:000.0[facility] WhygtveDTZCSYJBGW7859-91-48 15:20:00* Test Item Value Reference Range Interpretation Comments PTT (test code = PTT) 30.0 s 22.9-35.8 N [facility]JOLRMUYIJ3809-78-50 15:20:00* Test Item Value Reference Range Interpretation Comments PT (test code = PT) 12.8 s 12.0-14.7 N [facility] HospitalLhglyojOJQFMTJQTC5831-77-04 15:20:000.97[facility]AB[facility]-1VIEW (KUB) [place] [address] Patient Name: ZAYNAB FLORES MR #: [id number] : 1965 Age/Sex: 52/M Req #: [id number] Adm Physician: GISELA CARABALLO MD Ordered by: AKOSUA LAMAR MD Report #: [id number] Location: [facility] Room/Bed: [place] [address] Procedure: [id number] DX/A BDOMEN-1VIEW (KUB) Exam Date: 07/09/17 Exam Time: 16 50 REPORT STATUS: Signed PROCEDURE: X-RAY ABDOMEN - KUB COMPARI SON: [facility], CT, CT ABDOMEN AND PELVIS WITHOUT [...] of the lumbar spine is similar wi superimposed degenerative changes. CONCLUSION: Bilateral in trarenal calculi. A calculus in the left ureter cannot be excluded. Dictated by: Dharmesh Daniels M.D. on 07/09/2017 at 17:25 Electronically approved by: Dharmesh Daniels M.D. on 07/09/2017 at 17:25 Dic tated By: DHARMESH DANIELS MD 24 COPY TO: AKOSUA LAMAR MD CT ABDOMEN/PELVIS WO [place] [address] Patient Name: ZAYNAB FLORES MR #: [id number] : 1965 Age/Sex: 52/M Req #: [id number] Adm Physician: Ordered by: TRE SALAS MD Report #: [id number] Location: ER Room/Bed: Procedure: [id number] CT/CT ABDOMEN/PELVIS WO Ex am Date: Exam Time: REPORT STATUS: Signed EXAM: CT ABDOMEN AND PELVIS without IV CONTRAST INDICATION: Abdominal pain, l eft flank pain COMPARISON: CT of the abdomen and pelvis without IV contrast N [id number] TECHNIQUE: The abdomen and pelvis were scanned [...]
--- NOTE | 2019-11-04 10:51 | NUR ---
report to Chelsy RIVERA
[2019-11-04 11:55] VITALS: BP 108/66
--- NOTE | 2019-11-04 11:55 | NUR ---
REPORT RECEIVED FROM CELINE RIVERA, ER NURSE. PATIENT RECEIVED TO FLOOR IN BED IN NO ACUTE DISTRESS. PT IS ABLE TO MAKE NEEDS KNOWN AND DENIES NEEDS. PT WAS ORIENTED TO UNIT, CALL LIGHT, AND FALL PRECAUTIONS. PT VERBALIZED UNDERSTANDING. CALL LIGHT AND BELONGINGS PLACED NEARBY. WILL CONTINUE TO MONITOR.
[2019-11-04 12:04] VITALS: BP 108/66
[2019-11-04 12:55] VITALS: BP 108/66
[2019-11-04 15:01] VITALS: BP 126/74
[2019-11-04] MEDS ORDERED: NON-FORMULARY MEDICATION (Ondansetron Hcl* (Zofran*) 4 MG) SL PRN (15:45)
[2019-11-04] MEDS ORDERED: NON-FORMULARY MEDICATION (Meclizine Hcl 25 MG) PO SCH (15:45)
[2019-11-04] MEDS ORDERED: MECLIZINE HCL 12.5 MG TAB PO PRN (16:00)
[2019-11-04] MEDS ORDERED: ONDANSETRON HCL 4 MG ORAL DISINTEGRATING TAB PO PRN (16:00)
[2019-11-04] MEDS ORDERED: DEXTROSE 50% SYRINGE 50 ML IV PRN (16:00)
[2019-11-04] MEDS: INSULIN REGULAR, HUMAN 100 UNIT/1 ML 3ML VIAL SQ SCH ×2 (16:30→21:00)
[2019-11-04] MEDS: CEFTRIAXONE SOD 1 GM/NS 50 ML 50 ML IV SCH (17:43)
[2019-11-04] MEDS: ACETAMINOPHEN/CODEINE 300MG - 30MG TAB PO PRN (18:26)
--- NOTE | 2019-11-04 19:00 | NUR ---
Patient visited in room during nursing rounds. Patient alert and oriented x3. Ambulatory in room prn. Patient denies any pain or discomfort. Uses urinal prn. Ambulatory in room prn. Patient on scheduled IV antibiotics. Pt prefers to wear regular civilian clothes and not the hospital gown at this time. Call saeed within reach. Will monitor pt closely.
[2019-11-04 19:54] VITALS: BP 105/65
[2019-11-04 21:00] VITALS: BP 105/65
[2019-11-05] VITALS (8 sets, daily range): BP systolic 100–135; BP diastolic 61–84
[2019-11-05 06:11] LABS: BASOPHILS % 0.4 % (0.0-1.0); EOSINOPHILS # (AUTO) 0.2 (0.0-0.4); EOSINOPHILS % 2.1 % (0.0-6.0); HEMATOCRIT 37.5 % (38.2-49.6); LYMPHOCYTES # (AUTO) 1.2 (1.0-3.2); LYMPHOCYTES % 15.3 % (18.0-39.1); MEAN CORPUSCULAR HEMOGLOBIN 26.8 pg (28-32); MEAN CORPUSCULAR VOLUME 83.7 fL (81-99); MONOCYTES # (AUTO) 1.3 (0.2-0.8); MONOCYTES % 16.4 % (4.4-11.3); NEUTROPHILS % 65.1 % (38.7-80.0); PLATELET COUNT 186 x10e3/uL (140-360); RED BLOOD COUNT 4.48 x10e6/uL (4.3-5.7); RED CELL DISTRIBUTION WIDTH 15.6 % (11.7-14.4)
[2019-11-05 06:33] LABS: CREATINE KINASE MB 0.7 ng/mL (0-5.0)
--- NOTE | 2019-11-05 07:00 | NUR ---
SBAR BEDSIDE REPORT RECEIVED FROM VIVI RIVERA, PM SHIFT. PT RECEIVED SITTING UP ON THE SIDE OF BED EATING BREAKFAST IN NO ACUTE DISTRESS. PT IS ALERT/ORIENTED X4 AND IS ABLE TO MAKE NEEDS KNOWN. PT DENIES ANY NEEDS AT THIS TIME. PT WAS EDUCATED ON FALL RISK PRECAUTIONS AND USE OF CALL LIGHT. CALL LIGHT AND BELONGINGS NEARBY. WILL CONTINUE TO MONITOR.
[2019-11-05] MEDS ORDERED: NON-FORMULARY MEDICATION (Meloxicam 15 MG) PO SCH (09:00)
[2019-11-05] MEDS ORDERED: AMLODIPINE PO SCH (09:00)
[2019-11-05] MEDS ORDERED: VALSARTAN PO SCH (09:00)
[2019-11-05] MEDS: ATORVASTATIN 20 MG TAB PO SCH (09:18)
[2019-11-05] MEDS: VALSARTAN 160 MG TAB PO SCH (09:18)
[2019-11-05] MEDS: PANTOPRAZOLE SOD 40 MG TABEC PO SCH (09:18)
[2019-11-05] MEDS: LEVOFLOXACIN 500MG/D5W 100ML 100 ML IV SCH (09:18)
[2019-11-05] MEDS: TRIAMTERENE/HCTZ 37.5-25 MG TAB PO SCH (09:18)
[2019-11-05] MEDS: TAMSULOSIN HCL 0.4 MG CAP PO SCH (09:18)
[2019-11-05] MEDS: AMLODIPINE BESYLATE 5 MG TAB PO SCH (09:18)
[2019-11-05] MEDS: MELOXICAM 7.5 MG TAB PO SCH (09:18)
[2019-11-05] MEDS: NEBIVOLOL 10 MG TAB PO SCH (09:18)
[2019-11-05] MEDS: INSULIN REGULAR, HUMAN 100 UNIT/1 ML 3ML VIAL SQ SCH ×4 (09:38→21:13)
--- NOTE | 2019-11-05 09:59 | Consultation ---
DATE OF CONSULTATION: 11/04/2019 Urologic Consultation Consultation called by emergency room. CHIEF COMPLAINT AND REASON FOR CONSULTATION: Kidney stones, urinary tract infection. HISTORY OF PRESENT ILLNESS: Mr. Salmeron is a very pleasant 54-year-old male patient of mine, admitted to the hospital with sepsis and urinary tract infection. He denied any flank pain, denied dysuria, denied gross hematuria. PAST MEDICAL HISTORY: Obesity, diabetes mellitus, CKD, and kidney stones. MEDICATIONS: Please see MAR. ALLERGIES: TO PENICILLIN. SOCIAL HISTORY: Denied smoking or drinking. FAMILY HISTORY: Denied urologic stones or malignancies. REVIEW OF SYSTEMS: Noncontributory, other than problems mentioned above 12-orgran systems. PHYSICAL EXAMINATION: GENERAL: Elderly male, in no acute distress. VITAL SIGNS: Currently temperature 98.7, T-max 24 hours 103, pulse 88, respirations 16, and blood pressure 152/76. HEENT: Sclerae anicteric. NECK: Supple. BACK: Without costovertebral angle tenderness bilaterally. ABDOMEN: Soft. It is nontender. It is nondistended. No palpable mass. No palpable hernias. No palpable adenopathy. : Normal male external genitalia. EXTREMITIES: No edema. NEURO: Moves all four extremities. PSYCH: Mood appropriate. SKIN: Intact. Normal color. PERTINENT LABORATORY DATA: CT scan revealing a 6 mm right lower pole stone and a 6 mm left lower pole stone. Urinalysis showing 21 to 50 reds, greater than 50 whites. Hemoglobin 12, hematocrit 39, platelet count 234,000, and white blood cell count 7900. Lactic acid 25. Sodium 136, potassium 3.3, chloride 106, bicarb 16, BUN 26, creatinine 2.78, and glucose 216. IMPRESSION: 1. Urinary tract infection. 2. Sepsis. 3. Microscopic hematuria. 4. Benign prostatic hyperplasia. 5. Kidney stones. 6. Obesity. 7. Hypertension. 8. Qlwwh-jm-sqmuqny renal failure. 9. Hypokalemia. PLAN: Supportive care. Broad-spectrum IV antibiotics. We will adjust to culture specific antibiotics as data is available. Employ a brief trial passage to the stones. He has weight loss, defer primary care, management of hypertension, aggressive hydration. MD STEFFANY Forman/MODL /[id number]
[2019-11-05] MEDS: CEFTRIAXONE SOD 1 GM/NS 50 ML 50 ML IV SCH (16:00)
[2019-11-06] VITALS (8 sets, daily range): BP systolic 92–128; BP diastolic 53–76
--- NOTE | 2019-11-06 07:15 | NUR ---
Report given to heri beard pt stable at shift change. Addendum: 11/06/19 at 193 by Lilly Cat LVN this is end of shift 1914, Larry Easley
[2019-11-06] MEDS: ACETAMINOPHEN/CODEINE 300MG - 30MG TAB PO PRN (08:29)
[2019-11-06] MEDS: TAMSULOSIN HCL 0.4 MG CAP PO SCH (08:31)
[2019-11-06] MEDS: AMLODIPINE BESYLATE 5 MG TAB PO SCH (08:32)
[2019-11-06] MEDS: ATORVASTATIN 20 MG TAB PO SCH (08:32)
[2019-11-06] MEDS: MELOXICAM 7.5 MG TAB PO SCH (08:32)
[2019-11-06] MEDS: TRIAMTERENE/HCTZ 37.5-25 MG TAB PO SCH (08:33)
[2019-11-06] MEDS: LEVOFLOXACIN 500MG/D5W 100ML 100 ML IV SCH (08:33)
[2019-11-06] MEDS: PANTOPRAZOLE SOD 40 MG TABEC PO SCH (08:33)
[2019-11-06] MEDS: NEBIVOLOL 10 MG TAB PO SCH (08:34)
[2019-11-06] MEDS: VALSARTAN 160 MG TAB PO SCH (08:34)
[2019-11-06] MEDS: INSULIN REGULAR, HUMAN 100 UNIT/1 ML 3ML VIAL SQ SCH ×4 (08:45→20:48)
--- NOTE | 2019-11-06 10:11 | NUR ---
pt up to shower.
--- NOTE | 2019-11-06 13:18 | Progress Note ---
DATE: Internal Medicine Progress Note SUBJECTIVE: The patient is doing well, no significant complaint. PHYSICAL EXAMINATION: VITAL SIGNS: Blood pressure 92/55, temperature 98 degrees, heart rate 78 per minute, respiratory rate 18 per minute, and O2 saturation 95%. HEART: Showed regular rhythm. Normal S1, S2 sound. LUNGS: Clear bilaterally. ABDOMEN: Soft, nondistended. EXTREMITIES: Showed no edema. LABORATORY DATA: Blood sugar 160. Lactic acid 1.1. On the BMP; sodium 136, potassium 3.3, chloride 106, CO2 of 16, BUN 26, creatinine 2.78, GFR is only 24, and glucose 216. Total bilirubin 0.7, AST 19, ALT 19, and calcium 9.2. Creatine kinase 138, CK-MB 1.10, troponin 0.015. Albumin 3.4, globulin 4.1. Coronavirus test is done, report is pending. Urinalysis showed moderate leukocytes, 21-50 red blood cells, white blood cells more than 50, epithelial cells none, many bacteria. Urine culture, blood culture has been done, the report showing negative urine and blood culture for 48 hours. IMAGING DATA: CT of the abdomen and pelvis show no acute findings. CT of abdomen and pelvis, stable, bilateral nonobstructive renal calculi. FINAL IMPRESSION: 1. Urinary tract infection. 2. Sepsis. 3. Iyyta-fb-vetukyv renal failure, stage 4. 4. Morbid obesity. 5. Uncontrolled diabetes mellitus, type 2 with diabetic nephropathy. 6. Kidney stone. PLAN OF TREATMENT: We will continue with going to discontinue Levaquin. Continue ceftriaxone 1 g IV daily. Continue Tylenol with Codeine 1 tablet q.6 hours as needed for pain, amlodipine 5 mg daily, and Lipitor 20 mg daily. Continue meclizine 25 mg daily as needed for dizziness. We are going to discontinue the meloxicam because of renal failure, is contraindicated. Continue morphine 4 mg IV q.4 hours as needed for severe pain, Bystolic 20 mg daily, Zofran 4 mg q.6 hours as needed for nausea and vomiting, Protonix 40 mg daily. Continue monitoring blood sugar before meals and at bedtime. Continue Flomax 0.4 mg daily, Diovan 325 mg daily. DIAGNOSES: 1. Benign prostatic hypertrophy. 2. Hypertensive nephropathy. PLAN: We are going to consult Nephrology Dr. Brown. Also, we are going to see Dr. Quigley, urologist, who is seeing the patient also at the same time. TIME SPENT: Forty-five minutes. MD WILL Underwood/ELZA /[id number]
[2019-11-06 14:57] LABS: BASOPHILS % 0.3 % (0.0-1.0); EOSINOPHILS # (AUTO) 0.4 (0.0-0.4); EOSINOPHILS % 5.3 % (0.0-6.0); HEMATOCRIT 41.1 % (38.2-49.6); HEMOGLOBIN 12.5 g/dL (14.0-18.0); LYMPHOCYTES # (AUTO) 1.5 (1.0-3.2); LYMPHOCYTES % 21.4 % (18.0-39.1); MEAN CORPUSCULAR HEMOGLOBIN 25.3 pg (28-32); MEAN CORPUSCULAR HGB CONC 30.4 g/dL (31-35); MEAN CORPUSCULAR VOLUME 83.2 fL (81-99); MONOCYTES # (AUTO) 1.4 (0.2-0.8); MONOCYTES % 18.9 % (4.4-11.3); NEUTROPHILS # (AUTO) 3.9 (2.1-6.9); NEUTROPHILS % 53.7 % (38.7-80.0); PLATELET COUNT 222 x10e3/uL (140-360); RED BLOOD COUNT 4.94 x10e6/uL (4.3-5.7); RED CELL DISTRIBUTION WIDTH 15.6 % (11.7-14.4)
[2019-11-06 15:20] LABS: ANION GAP 20.1 mmol/L (8-16); CALCIUM 9.5 mg/dL (8.4-10.2); CREATININE, SERUM 3.18 mg/dL (0.72-1.25); POTASSIUM 4.1 mmol/L (3.5-5.1)
--- NOTE | 2019-11-06 15:45 | NUR ---
Renal Consult HPI - 54 yo m is admitted with symptoms of dysuria and was found to have elevated creatinine on 11/03. no labs available since then. He denies any new complaints. ROS - Gen - no weakness Resp - No SOB/ALFRED heart - no chest pain/palpitations Abd - no nausea/vomiting Neuro - no headache/ weakness AST MEDICAL HISTORY: Obesity, diabetes mellitus, CKD, and kidney stones. MEDICATIONS: Please see MAR. ALLERGIES: TO PENICILLIN. SOCIAL HISTORY: Denied smoking or drinking. FAMILY HISTORY: Denied urologic stones or malignancies. PHYSICAL EXAMINATION: GENERAL: Elderly male, in no acute distress. VITAL SIGNS: Currently temperature 98.7, T-max 24 hours 103, pulse 88, respirations 16, and blood pressure 152/76. HEENT: Sclerae anicteric. NECK: Supple. BACK: Without costovertebral angle tenderness bilaterally. ABDOMEN: Soft. It is nontender. It is nondistended. No palpable mass. No palpable hernias. No palpable adenopathy. : Normal male external genitalia. EXTREMITIES: No edema. NEURO: Moves all four extremities. PSYCH: Mood appropriate. SKIN: Intact. Normal color. Labs - no labs since 11/03 A& P - - Hieu on CKD - inflammatory ATN with some obstructive Uropathy - Acid base and electrolytes not done yet Plan - - strict I & O\ - no nephrotoxins - daily BMP - start on bicarb drip if still acidotic. bicarb on 11/03 was 16 We will keep following
[2019-11-06] MEDS: CEFTRIAXONE SOD 1 GM/NS 50 ML 50 ML IV SCH (16:26)
--- NOTE | 2019-11-06 19:15 | NUR ---
Report given to oncoming nurse, pt stable at shift change.
[2019-11-07] VITALS (9 sets, daily range): BP systolic 105–135; BP diastolic 58–66
[2019-11-07] MEDS: NEBIVOLOL 10 MG TAB PO SCH (08:24)
[2019-11-07] MEDS: AMLODIPINE BESYLATE 5 MG TAB PO SCH (08:25)
[2019-11-07] MEDS: INSULIN REGULAR, HUMAN 100 UNIT/1 ML 3ML VIAL SQ SCH ×4 (08:25→20:17)
[2019-11-07] MEDS: ATORVASTATIN 20 MG TAB PO SCH (08:25)
[2019-11-07] MEDS: TAMSULOSIN HCL 0.4 MG CAP PO SCH (08:25)
[2019-11-07] MEDS: VALSARTAN 160 MG TAB PO SCH (08:25)
[2019-11-07] MEDS: PANTOPRAZOLE SOD 40 MG TABEC PO SCH (08:25)
[2019-11-07] MEDS: ACETAMINOPHEN/CODEINE 300MG - 30MG TAB PO PRN (08:28)
[2019-11-07] MEDS ORDERED: FUROSEMIDE INJ 10 MG/ML 2 ML VIAL IV ONE (12:45)
--- NOTE | 2019-11-07 12:49 | NUR ---
Renal Progress Note Subjective - chart reviewed, events noted. patient feels much better O - GENERAL: Elderly male, in no acute distress. VITAL SIGNS: Currently temperature 97.8, pulse 76, respirations 18, and blood pressure 121/66 mm hg. HEENT: Sclerae anicteric. NECK: Supple. BACK: Without costovertebral angle tenderness bilaterally. ABDOMEN: Soft. It is nontender. It is nondistended. No palpable mass. No palpable hernias. No palpable adenopathy. : Normal male external genitalia. EXTREMITIES: + edema. NEURO: Moves all four extremities. PSYCH: Mood appropriate. SKIN: Intact. Normal color. Labs - creatinine worse since 11/03, no labs available for today A& P - - Hieu on CKD vs CKD progression - inflammatory ATN with some obstructive Uropathy. also volume overload - Metabolic acidosis - hypertension Plan - - strict I & O\ - no nephrotoxins - daily BMP - will give Lasix 20 mg iv once - start on bicarb 1300 BID
--- NOTE | 2019-11-07 13:00 | NUR ---
pt received his 20mg of Lasix.
--- NOTE | 2019-11-07 14:32 | Progress Note ---
DATE: Internal Medicine Progress Note SUBJECTIVE: The patient is doing well. No significant complaint. PHYSICAL EXAMINATION: HEART: Showed regular rhythm. Normal S1, S2 sound. LUNGS: Clear bilaterally. ABDOMEN: Soft. VITAL SIGNS: Blood pressure 106/60, temperature 97.8, heart rate 76 per minute, respiratory rate 18 per minute, O2 saturation 98%. LABORATORY DATA: On the CBC; white blood count 7.6, hemoglobin 12.5, hematocrit 41.1, and platelet count 232,000. On the BMP; sodium 137, potassium 4.1, chloride 105, CO2 16, BUN 38, creatinine 3.18, GFR is 20, glucose is 170, calcium 9.5, magnesium 1.6. COVID test is negative. Also, blood culture negative. Urine culture negative. FINAL IMPRESSION: 1. Possible urinary tract infection. 2. Yafbj-sa-tkvawsq renal failure, stage 4. 3. Sepsis. 4. Morbid obesity. 5. Uncontrolled diabetes mellitus type 2 with diabetic nephropathy. 6. Kidney stones. 7. Benign prostatic hypertrophy. 8. Possible hypertensive nephropathy. PLAN OF TREATMENT: We are going to recheck the BMP tomorrow since they have been worsening of BUN and creatinine. 1. Continue ceftriaxone 1 g IV daily. Awaiting for the final report of the urine culture. 2. Continue Tylenol with codeine 1 tablet q.6 hours as needed for severe pain. 3. Continue amlodipine 5 mg daily. 4. Lipitor 20 mg daily. 5. He is taking meclizine 25 mg daily as needed for dizziness. 6. Morphine 4 mg IV q.4 hours as needed for severe pain. 7. Bystolic 20 mg daily. 8. Zofran 4 mg p.o. q.6 hours as needed for nausea and vomiting. 9. Protonix 40 mg daily. 10. Continue monitoring blood sugar before meals and at bedtime. 11. Continue sodium bicarbonate 1300 mg twice a day. 12. Flomax 0.4 mg daily. 13. Diovan 320 mg daily. 14. Nephrology has been consulted on the case. We are going to continue with renal diabetic diet. 15. BMP tomorrow. MD WILL Underwood/MODAshley /[id number]
[2019-11-07] MEDS: CEFTRIAXONE SOD 1 GM/NS 50 ML 50 ML IV SCH (16:15)
[2019-11-07] MEDS: SODIUM BICARBONATE 650 MG TAB PO SCH (16:16)
[2019-11-07 16:45] LABS: COLOR,URINE YELLOW (YELLOW)
[2019-11-07 16:46] LABS: CLARITY,URINE CLOUDY (CLEAR)
[2019-11-07 16:47] LABS: BILIRUBIN,URINE NEGATIVE (NEGATIVE); KETONES,URINE NEGATIVE (NEGATIVE); LEUKOCYTE ESTERASE ,URINE LARGE (NEGATIVE); NITRITE,URINE NEGATIVE (NEGATIVE); PROTEIN,URINE DIPSTICK 2+ (NEGATIVE); URINE UROBILINOGEN 0.2 mg/dL (0.2 - 1)
[2019-11-07 16:58] LABS: RBC,URINE >50 /HPF (0-5); WBC,URINE (MAN) >50 /HPF (0-5)
[2019-11-07 16:59] LABS: BACTERIA,URINE RARE /HPF; EPITHELIAL CELLS,URINE FEW /LPF
--- NOTE | 2019-11-07 19:30 | NUR ---
report given to oncoming nurse . pt stable at this time .
[2019-11-08] VITALS (7 sets, daily range): BP systolic 105–146; BP diastolic 60–83
--- NOTE | 2019-11-08 06:50 | NUR ---
RECEIVED BEDSIDE SHIFT REPORT FROM OFF GOING NURSE. PATIENT IS RESTING IN BED. NO ACUTE DISTRESS NOTED. CALL LIGHT WITHIN REACH. BED IN THE LOWEST POSITION.
[2019-11-08 07:28] LABS: ANION GAP 19.7 mmol/L (8-16); CALCIUM 8.8 mg/dL (8.4-10.2); CREATININE, SERUM 3.85 mg/dL (0.72-1.25); POTASSIUM 3.7 mmol/L (3.5-5.1)
[2019-11-08] MEDS: INSULIN REGULAR, HUMAN 100 UNIT/1 ML 3ML VIAL SQ SCH ×4 (08:30→21:01)
[2019-11-08] MEDS: NEBIVOLOL 10 MG TAB PO SCH (09:28)
[2019-11-08] MEDS: TAMSULOSIN HCL 0.4 MG CAP PO SCH (09:29)
[2019-11-08] MEDS: PANTOPRAZOLE SOD 40 MG TABEC PO SCH (09:29)
[2019-11-08] MEDS: SODIUM BICARBONATE 650 MG TAB PO SCH ×2 (09:29→16:00)
[2019-11-08] MEDS: VALSARTAN 160 MG TAB PO SCH (09:29)
[2019-11-08] MEDS: AMLODIPINE BESYLATE 5 MG TAB PO SCH (09:29)
[2019-11-08] MEDS: ATORVASTATIN 20 MG TAB PO SCH (09:29)
--- NOTE | 2019-11-08 11:37 | Diagnostic Imaging Report ---
Renal ultrasound. History: Kidney stones. Comparison: CT dated 11/04/2019. Discussion: Transverse and longitudinal images of the kidneys were obtained demonstrating normal renal sizes and echogenicities. No suspicious renal mass. There is a 4 mm stone at the inferior pole the right kidney. Recently noted stones within the left kidney are not well-visualized by this examination. Mild bilateral pelviectasis is noted, similar to CT. The right kidney measures 11.1 cm and the left kidney measures 12.2 cm in length. The urinary bladder is decompressed. There is no evidence of free fluid. IMPRESSION: 1. There is a 4 mm stone at the inferior pole the right kidney. Previously identified left renal calculi are not well visualized. 2. Bilateral pelviectasis, left greater than right, similar to prior CT. Signed by: Juan Luis Gilliam MD on 11/08/2019 11:33 AM
[2019-11-08 12:05] LABS: CLARITY,URINE SL CLOUDY (CLEAR); COLOR,URINE YELLOW (YELLOW); LEUKOCYTE ESTERASE ,URINE SMALL (NEGATIVE); NITRITE,URINE NEGATIVE (NEGATIVE)
[2019-11-08] MEDS: SODIUM BICARBONATE 8.4% SYRING 150 ML in DEXTROSE 5% 1,000 ML IV SCH (12:05)
[2019-11-08 12:06] LABS: BILIRUBIN,URINE NEGATIVE (NEGATIVE); KETONES,URINE NEGATIVE (NEGATIVE); PROTEIN,URINE DIPSTICK 2+ (NEGATIVE); URINE UROBILINOGEN 0.2 mg/dL (0.2 - 1)
[2019-11-08 12:07] LABS: BACTERIA,URINE RARE /HPF; EPITHELIAL CELLS,URINE FEW /LPF; RBC,URINE 21-50 /HPF (0-5); WBC,URINE (MAN) 21-50 /HPF (0-5)
[2019-11-08] MEDS: CEFTRIAXONE SOD 1 GM/NS 50 ML 50 ML IV SCH (16:00)
--- NOTE | 2019-11-08 19:10 | NUR ---
BEDSIDE SHIFT REPORT GIVEN TO ONCOMING NURSE. PATIENT IS RESTING IN BED IN STABLE CONDITION. CALL LIGHT WITHIN REACH. BED IN THE LOWEST POSITION.
[2019-11-08] MEDS: INSULIN GLARGINE 100 UNITS/ML VIAL SQ SCH (21:01)
[2019-11-09] VITALS (8 sets, daily range): BP systolic 112–125; BP diastolic 51–71
[2019-11-09] MEDS: SODIUM BICARBONATE 8.4% SYRING 150 ML in DEXTROSE 5% 1,000 ML IV SCH ×2 (03:26→19:56)
[2019-11-09 06:35] LABS: ANION GAP 20.5 mmol/L (8-16); CALCIUM 8.8 mg/dL (8.4-10.2); CREATININE, SERUM 4.46 mg/dL (0.72-1.25); POTASSIUM 3.5 mmol/L (3.5-5.1)
--- NOTE | 2019-11-09 06:40 | NUR ---
RECEIVED BEDSIDE SHIFT REPORT FROM OFF GOING NURSE. PATIENT IS RESTING IN BED. NO ACUTE DISTRESS NOTED AT THIS TIME. CALL LIGHT WITHIN REACH. BED IN THE LOWEST POSITION.
[2019-11-09 07:43] LABS: ALBUMIN 3.9 g/dL (3.5-5.0); ALBUMIN/GLOBULIN RATIO 1.2 (0.8-2.0)
[2019-11-09] MEDS: INSULIN REGULAR, HUMAN 100 UNIT/1 ML 3ML VIAL SQ SCH ×4 (08:30→21:41)
[2019-11-09] MEDS: NEBIVOLOL 10 MG TAB PO SCH (09:12)
[2019-11-09] MEDS: AMLODIPINE BESYLATE 5 MG TAB PO SCH (09:12)
[2019-11-09] MEDS: ATORVASTATIN 20 MG TAB PO SCH (09:12)
[2019-11-09] MEDS: PANTOPRAZOLE SOD 40 MG TABEC PO SCH (09:12)
[2019-11-09] MEDS: TAMSULOSIN HCL 0.4 MG CAP PO SCH (09:12)
[2019-11-09] MEDS: SODIUM BICARBONATE 650 MG TAB PO SCH ×2 (09:12→16:27)
[2019-11-09] MEDS: METHYLPREDNISOLONE SOD SUCC 40 MG/ML VIAL 1ML IV SCH ×2 (10:55→21:41)
[2019-11-09 12:40] LABS: BILIRUBIN,URINE NEGATIVE (NEGATIVE); CLARITY,URINE CLOUDY (CLEAR); COLOR,URINE YELLOW (YELLOW); KETONES,URINE NEGATIVE (NEGATIVE); LEUKOCYTE ESTERASE ,URINE MODERATE (NEGATIVE); NITRITE,URINE NEGATIVE (NEGATIVE); PROTEIN,URINE DIPSTICK 2+ (NEGATIVE); URINE UROBILINOGEN 0.2 mg/dL (0.2 - 1)
[2019-11-09 12:41] LABS: WBC,URINE (MAN) >50 /HPF (0-5)
[2019-11-09 12:42] LABS: BACTERIA,URINE MODERATE /HPF; RBC,URINE >50 /HPF (0-5)
[2019-11-09] MEDS: CEFTRIAXONE SOD 1 GM/NS 50 ML 50 ML IV SCH (16:27)
--- NOTE | 2019-11-09 19:10 | NUR ---
BEDSIDE SHIFT REPORT GIVEN TO ONCOMING NURSE. PATIENT IS SITTING IN BED, NO ACUTE DISTRESS NOTED, DENIES PAIN AT THIS TIME. IV FLUIDS INFUSING. CALL LIGHT WITHIN REACH. BED IN THE LOWEST POSITION.
[2019-11-09] MEDS: INSULIN GLARGINE 100 UNITS/ML VIAL SQ SCH (21:41)
[2019-11-10] VITALS (7 sets, daily range): BP systolic 110–127; BP diastolic 54–70
--- NOTE | 2019-11-10 07:08 | NUR ---
received change of shift report from PM nurse. pt awake, alert, no s/s distress. ambulating easily around room. in stable condition.
[2019-11-10] MEDS: INSULIN REGULAR, HUMAN 100 UNIT/1 ML 3ML VIAL SQ SCH ×4 (08:15→21:10)
[2019-11-10] MEDS: METHYLPREDNISOLONE SOD SUCC 40 MG/ML VIAL 1ML IV SCH ×2 (10:31→21:11)
[2019-11-10] MEDS: TAMSULOSIN HCL 0.4 MG CAP PO SCH (10:33)
[2019-11-10] MEDS: NEBIVOLOL 10 MG TAB PO SCH (10:33)
[2019-11-10] MEDS: PANTOPRAZOLE SOD 40 MG TABEC PO SCH (10:34)
[2019-11-10] MEDS: AMLODIPINE BESYLATE 5 MG TAB PO SCH (10:34)
[2019-11-10] MEDS: ATORVASTATIN 20 MG TAB PO SCH (10:34)
[2019-11-10] MEDS: SODIUM BICARBONATE 650 MG TAB PO SCH ×2 (10:35→17:06)
[2019-11-10 11:20] LABS: ALBUMIN/GLOBULIN RATIO 1.2 (0.8-2.0); ANION GAP 20.7 mmol/L (8-16); CALCIUM 8.4 mg/dL (8.4-10.2); CREATININE, SERUM 4.42 mg/dL (0.72-1.25); POTASSIUM 3.7 mmol/L (3.5-5.1)
--- NOTE | 2019-11-10 12:15 | NUR ---
spoke with Dr. Brown regarding elevated blood sugar and CMP results. no new orders received. MD states please make attending aware.
--- NOTE | 2019-11-10 12:47 | NUR ---
paging Dr. Taylor for orders regarding insulin for elevated blood sugar.
[2019-11-10] MEDS: SODIUM BICARBONATE 8.4% SYRING 150 ML in DEXTROSE 5% 1,000 ML IV SCH (13:09)
--- NOTE | 2019-11-10 13:54 | NUR ---
spoke with Dr. Taylor regarding blood sugar. new orders obtained.
[2019-11-10] MEDS ORDERED: INSULIN REGULAR, HUMAN 100 UNIT/1 ML 3ML VIAL SQ ONE (14:00)
[2019-11-10] MEDS ORDERED: DEXTROSE 50% SYRINGE 50 ML IV PRN (15:00)
[2019-11-10] MEDS: CEFTRIAXONE SOD 1 GM/NS 50 ML 50 ML IV SCH (17:05)
--- NOTE | 2019-11-10 17:05 | NUR ---
Nutrition Screen Note RD Recommendation for Physician: -Recommend adding ADA diet to diet order Plan of Care: RD following, monitoring for tolerance and adequacy Nutrition reason for involvement: length of stay Primary Diagnose(s): acute on chronic renal failure, severe sepsis, and UTI PMH: Obesity, diabetes mellitus, CKD, and kidney stones. Ht: 70 in Wt: 361.56 lb BMI: 51.9 kg/m2 IBW:[address] Assessment: (11/10/19) Chart reviewed. Labs and meds reviewed. Pt is a 54 year old male admitted with acute on chronic renal failure, severe sepsis, and UTI. Pt reports eating about 50% of his meals. It is recorded that pt consumed 100% of meals for breakfast and lunch today. No weight loss reported and pt stated he usually weighs 364 lbs. No N/V/D/C or chewing/swallowing issues. Will continue to monitor Current Diet: cardiac Malnutrition Evaluation (11/10/19) The patient does not meet criteria for a specified degree of malnutrition at this time. Will re-evaluate at follow-up as appropriate. Diet Education Needs Assessment: Pt declined the need for diet education Nutrition Care Level: low Signed: Yu Townsend, RD, LD
[2019-11-10] MEDS: INSULIN GLARGINE 100 UNITS/ML VIAL SQ SCH (21:10)
[2019-11-11] VITALS (8 sets, daily range): BP systolic 103–145; BP diastolic 51–81
[2019-11-11] MEDS: SODIUM BICARBONATE 8.4% SYRING 150 ML in DEXTROSE 5% 1,000 ML IV SCH (05:44)
[2019-11-11] MEDS: ACETAMINOPHEN/CODEINE 300MG - 30MG TAB PO PRN (05:55)
[2019-11-11] MEDS: INSULIN REGULAR, HUMAN 100 UNIT/1 ML 3ML VIAL SQ SCH ×4 (07:30→22:00)
[2019-11-11 08:02] LABS: ALBUMIN 3.7 g/dL (3.5-5.0); ALBUMIN/GLOBULIN RATIO 1.2 (0.8-2.0); ANION GAP 19.6 mmol/L (8-16); CALCIUM 8.1 mg/dL (8.4-10.2); CREATININE, SERUM 3.76 mg/dL (0.72-1.25); POTASSIUM 3.6 mmol/L (3.5-5.1)
[2019-11-11] MEDS: NEBIVOLOL 10 MG TAB PO SCH (09:10)
[2019-11-11] MEDS: PANTOPRAZOLE SOD 40 MG TABEC PO SCH (09:10)
[2019-11-11] MEDS: SODIUM BICARBONATE 650 MG TAB PO SCH ×2 (09:10→17:15)
[2019-11-11] MEDS: METHYLPREDNISOLONE SOD SUCC 40 MG/ML VIAL 1ML IV SCH ×2 (09:10→21:00)
[2019-11-11] MEDS: TAMSULOSIN HCL 0.4 MG CAP PO SCH (09:10)
[2019-11-11] MEDS: AMLODIPINE BESYLATE 5 MG TAB PO SCH (09:10)
[2019-11-11] MEDS: INSULIN GLARGINE 100 UNITS/ML VIAL SQ SCH ×2 (09:10→22:01)
[2019-11-11] MEDS: ATORVASTATIN 20 MG TAB PO SCH (09:10)
[2019-11-11] MEDS ORDERED: SODIUM CHLORIDE 0.9% 1000ML 1,000 ML IV ONE (13:00)
[2019-11-11] MEDS: CEFTRIAXONE SOD 1 GM/NS 50 ML 50 ML IV SCH (17:15)
--- NOTE | 2019-11-11 22:08 | NUR ---
Pt's blood glucose level 472. BG rechecked for confirmation and is 430. Humulin R 20 units given per sliding scale and scheduled Lantus [address] Taylor paged to inform of elevated blood glucose reading. Awaiting call back.
--- NOTE | 2019-11-11 22:54 | NUR ---
No call back. Second page to Dr. Taylor. Will continue to monitor.
--- NOTE | 2019-11-11 23:46 | NUR ---
Spoke to Dr. Taylor via phone. New insulin orders received. Will implement new orders and continue to monitor pt.
[2019-11-11] MEDS ORDERED: INSULIN REGULAR, HUMAN 100 UNIT/1 ML 3ML VIAL SQ STA (23:47)
[2019-11-12] VITALS: BP 125/62
[2019-11-12 04:00] VITALS: BP 119/79
[2019-11-12] MEDS: INSULIN REGULAR, HUMAN 100 UNIT/1 ML 3ML VIAL SQ SCH ×4 (07:30→11:30)
[2019-11-12 07:58] LABS: ALBUMIN 3.9 g/dL (3.5-5.0); ALBUMIN/GLOBULIN RATIO 1.3 (0.8-2.0); ANION GAP 19.3 mmol/L (8-16); CALCIUM 8.2 mg/dL (8.4-10.2); CREATININE, SERUM 2.72 mg/dL (0.72-1.25); POTASSIUM 3.3 mmol/L (3.5-5.1)
[2019-11-12 08:00] VITALS: BP 143/73
[2019-11-12] MEDS ORDERED: INSULIN GLARGINE 100 UNITS/ML VIAL SQ SCH (09:00)
[2019-11-12] MEDS: METHYLPREDNISOLONE SOD SUCC 40 MG/ML VIAL 1ML IV SCH (09:08)
[2019-11-12] MEDS: NEBIVOLOL 10 MG TAB PO SCH (09:08)
[2019-11-12] MEDS: AMLODIPINE BESYLATE 5 MG TAB PO SCH (09:09)
[2019-11-12] MEDS: SODIUM BICARBONATE 650 MG TAB PO SCH (09:09)
[2019-11-12] MEDS: PANTOPRAZOLE SOD 40 MG TABEC PO SCH (09:09)
[2019-11-12] MEDS: ATORVASTATIN 20 MG TAB PO SCH (09:09)
[2019-11-12] MEDS: TAMSULOSIN HCL 0.4 MG CAP PO SCH (09:09)
[2019-11-12 10:18] VITALS: BP 143/73
[2019-11-12 12:07] VITALS: BP 137/71
[2019-11-12] MEDS ORDERED: POTASSIUM CHLORIDE 20 MEQ TAB CR PO ONE (13:00)
== END 2019-11-12 13:29 | disposition home or self-care (01) | DRG 871 ==
LOC: ER 08:24 → ERHOLD 10:26 → MED/SURG3 11:55
DX: A41.9 Sepsis, unspecified organism (principal); N17.0 Acute kidney failure with tubular necrosis; Z68.43 Body mass index [BMI] 50.0-59.9, adult; N18.4 Chronic kidney disease, stage 4 (severe); E87.2 Acidosis; N10 Acute pyelonephritis; E66.01 Morbid (severe) obesity due to excess calories; I12.9 Hypertensive chronic kidney disease with stage 1 through stage 4 chronic kidney disease, or unspecified chronic kidney disease; E11.22 Type 2 diabetes mellitus with diabetic chronic kidney disease; E11.21 Type 2 diabetes mellitus with diabetic nephropathy; Z79.4 Long term (current) use of insulin; N40.0 Benign prostatic hyperplasia without lower urinary tract symptoms; E87.6 Hypokalemia; Z11.59 Encounter for screening for other viral diseases; E11.65 Type 2 diabetes mellitus with hyperglycemia; N13.9 Obstructive and reflux uropathy, unspecified; R65.20 Severe sepsis without septic shock; N20.0 Calculus of kidney; Z87.442 Personal history of urinary calculi
CPT/HCPCS: 36415; 74176; 76770; 80048; 80053; 81001; 81003; 82550; 82553; 82948; 83516; 83605; 83735; 83970; 84484; 84550; 85025; 86021; 86039; 86160; 86225; 86235; 86255; 86256; 86376; 87040; 87086; 96372; 96374; 96376; 99284; J0696; J1815; J1817; J1940; J1956; J2270; J2405; J2920; J7030; J7070; U0002

== ENCOUNTER 2019-12-06 11:34 | Emergency (ER) | payer BC, OTHER ==
[~2019-12-06] VITALS: Ht 177.8 cm; Wt 163.7 kg
--- NOTE | 2019-12-06 12:08 | Emergency Department Note ---
History of Present Illnes History of Present Illness Chief Complaint: Genitourinary History of Present Illness This is a 54 year old male Chief Complaint Comment PATIENT IN FROM HOME WITH COMPLAINTS OF URINARY FREQUENCY AND BURNING. STATES THIS AM THERE WAS BLOOD AND BLOOD CLOTS; PATIENT STATES THAT HE HAS BEEN SEEING DR COX; AND HAS A LITHOTRIPSY SCHEDULED FOR DEC 15, 2019. PATIENT RATES PAIN 9/10. Historian: Patient Arrival Mode: Car Past Medical/Family History Physician Review I have reviewed the patient's past medical and family history. Any updates have been documented here. Past Medical History Recent Fever: No Clinical Suspicion of Infectio: Yes New/Unexplained Change in Ment: No Past Medical History: Hypertension, Diabetes, Kidney Stones, GERD, Hyperlipedemia Other Medical History: acid reflux Past Surgical History: Cholecysctectomy, Knee Replacement, Back Surgery Other Surgery: cervical fusion, kidney stone removal, lumbar herniated disc removal, right shoulder repair Other Last Tetanus: UTD Review of Systems Review of Systems Constitutional: Reports no symptoms EENTM: Reports no symptoms Cardiovascular: Reports no symptoms Respiratory: Reports no symptoms Gastrointestinal: Reports no symptoms Genitourinary: Reports as per HPI, Reports hematuria Musculoskeletal: Reports no symptoms Integumentary: Reports no symptoms Neurological: Reports no symptoms Psychological: Reports no symptoms Endocrine: Reports no symptoms Hematological/Lymphatic: Reports no symptoms Physical Exam Related Data Allergies: Coded Allergies: Penicillins (Verified Allergy, Mild, RASH, 12/06/19) Triage Vital Signs Vital Signs Date Time Temp Pulse Resp B/P (MAP) Pulse Ox O2 Delivery O2 Flow Rate FiO2 12/06/19 11:42 98.4 80 18 154/71 100 Room Air Vital signs reviewed: Yes Physical Exam CONSTITUTIONAL Constitutional: Present well-developed, Present well-nourished HENT HENT: Present normocephalic, Present atraumatic, Present oropharynx clear/moist, Present nose normal HENT L/R: Present left ext ear normal, Present right ext ear normal EYES Eyes: Reports PERRL, Reports conjunctivae normal NECK Neck: Present ROM normal PULMONARY Pulmonary: Present effort normal, Present breath sounds normal CARDIOVASCULAR Cardiovascular: Present regular rhythm, Present heart sounds normal, Present capillary refill normal, Present normal rate GASTROINTESTINAL Abdominal: Present soft, Present nontender, Present bowel sounds normal GENITOURINARY Genitourinary: Present exam deferred SKIN Skin: Present warm, Present dry MUSCULOSKELETAL Musculoskeletal: Present ROM normal NEUROLOGICAL Neurological: Present alert, Present oriented x 3, Present no gross motor or sensory deficits PSYCHOLOGICAL Psychological: Present mood/affect normal, Present judgement normal Results Laboratory Lab results reviewed: Yes Assessment & Plan Medical Decision Making MDM 54-year-old male presents for hematuria. CT has increased frequency as well. He has a history of known kidney stones. His initial differential includes urinary tract infection versus diabetes versus nephrolithiasis. Workup shows blood on his urinalysis as well as few bacteria, leuk esterase. Patient was discussed with Dr. Cox and have agreed to treat patient with Keflex and follow-up in Dr. Ellison's clinic. He will return to the emergency department if he develops a fever. Patient is appropriate for discharge. Reassessment Reassessment time: 14:58 Reassessment Well appearing, NAD Assessment & Plan Final Impression: (1) UTI (urinary tract infection) Depart Disposition: HOME, SELF-CARE Last Vital Signs Date Time Temp Pulse Resp B/P (MAP) Pulse Ox O2 Delivery O2 Flow Rate FiO2 12/06/19 11:42 98.4 80 18 154/71 100 Room Air Home Meds Active Scripts Ciprofloxacin Hcl (CIPRO) 500 Mg Tablet, 500 MG PO Q12H, #28 TAB Prov:CHRYSTAL BOCANEGRA 11/02/19 Ondansetron Hcl* (ZOFRAN*) 4 Mg Tablet, 4 MG SL Q6H PRN for NAUSEA, #14 TAB 0 Refills Prov:AYLEEN THAKKARO L HARDBOARD PRESS OPERATOR 04/01/19 Levofloxacin (LEVAQUIN) 750 Mg Tablet, 750 MG PO DAILY for 7 Days, #7 TAB Prov:AYLEEN THAKKARO L HARDBOARD PRESS OPERATOR 04/01/19 Tamsulosin Hcl* (FLOMAX*) 0.4 Mg Cap, 0.4 MG PO DAILY, #10 CAP 0 Refills Prov:THAKKARGREG WONGDRO L HARDBOARD PRESS OPERATOR 04/01/19 Acetaminophen With Codeine (TYLENOL WITH CODEINE #3 TABLET) 1 Each Tablet, 300 MG PO Q4H for pain, #20 TAB Prov:AYLEEN THAKKARO L HARDBOARD PRESS OPERATOR 04/01/19 Reported Medications Acetaminophen With Codeine (TYLENOL WITH CODEINE #3 TABLET) 1 Each Tablet, 300 MG PO PRN for Mild Pain (1-3) or Fever>100.8, TAB 02/18/19 Meclizine Hcl (MECLIZINE HCL) 25 Mg Tablet, 25 MG PO PRN 02/16/19 [Amlodipine/Valsartan] No Conflict Check, 5-320 MG PO DAILY 02/16/19 Metformin Hcl (METFORMIN HCL ER) 500 Mg Tab.er.24, 1 TAB PO HS, #60 TAB 09/17/18 Triamterene/Hydrochlorothiazid (TRIAMTERENE-HCTZ 37.5-25 MG CP) 1 Each Capsule, 37.5 MG PO DAILY 09/01/18 [Farxiga] MG No Conflict Check, 10 MG PO DAILY 09/01/18 Pantoprazole Sodium* (PROTONIX) 40 Mg Tablet.dr, 40 MG PO DAILY, TAB 08/18/18 Gluc 2KCL/Chondr/Darrel Hy/Hy Ac (GLUCOSAMINE & CHONDROITIN CAP) 1 Each Capsule 01/05/18 Vitamin B Complex & Vit C No.4 (SUPER B COMPLEX) 150 Mg Tablet 01/05/18 Nebivolol Hcl (BYSTOLIC) 10 Mg Tablet, 20 MG PO DAILY 05/04/12 Atorvastatin Calcium (LIPITOR) 20 Mg Tablet, 20 MG PO DAILY 05/04/12 Meloxicam (MELOXICAM) 15 Mg Tablet, 15 MG PO DAILY 05/04/12 KHUSHI ALLEN MD Dec 06, 2019 12:08
--- OUTSIDE RECORDS SUMMARY | 2019-12-06 12:18 | XMS REPORT | Continuity of Care Document ---
Author Author [employer], ZAYNAB HANSEN Organization [employer] [facility] Address Unknown Phone Unavailable Care Team Providers Care Endoscopy Nurse Name Role Phone [employer] Unavailable Un available Problems Problem Status Onset Date Classification Date Reported Comments Source Superior glenoid labrum lesion of right shoulder, initial encounter 03/25/2018 10/06/2018 [facility] UNK Active 1 05/05/2017 [facility] Impingement syndrome of right shoulder 02/21/2018 09/02/2018 [facility] RT SHOULDER Active 10/08/2017 [facility] [place] 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 H Active 05/31/2015 [facility] [place] ICD NOT GIVEN / CPT 68531 [id number] Active 12/04/2012 [facility] STONE 592.0 592.1/CPT 02407 72553 Active 12/03/2012 [facility] Incomplete rotator cuff tear or rupture of right shoulder, not specified as traumatic 09/02/2018 [facility] Bicipital tendinitis, right shoulder 09/02/2018 [facility] Effusion, left knee 09/02/2018 [facility] Pain in left knee 09/02/2018 [facility] Acid reflux Active Problem 12/18/2012 [facility] Back pain Active Problem 12/18/2012 1lumbar [facility] Chest pain Resolved Problem 12/18/2012 27/13 Dx as acid reflux [facility] Foot swelling Active Problem 12/18/2012 [facility] GERD - Gastro-esophageal reflux disease Active Problem 12/18/2012 [facility] HTN - Hypertension Active Problem 12/18/2012 [facility] Obese Active Problem 12/18/2012 [facility] Poor peripheral circulation Re solved Problem 01/2013 3swelling to LE [facility] Renal stone Active Problem 12/18/2012 [facility] Retained ureteral stent Active Problem 12/18/2012 4left [facility] Sleep apnea Active Problem 12/18/2012 5uses CPAP [facility] Strain of muscle, fascia and tendon of l jigna head of biceps, right arm, initial encounter 10/06/2018 [facility] Other synovitis and tenosynovitis, right shoulder 10/06/2018 [facility] Loose body in right shoulder 10/06/2018 [facility] Primary osteoarthritis, right shoulder 10/06/2018 [facility] Morbid (severe) obesity due to excess calories 10/06/2018 [facility] Body mass index (BMI) 50-59.9 , adult 10/06/2018 [facility] Essential (primary) hypertension 10/06/2018 [facility] Gastro-esophageal reflux disease without esophagitis 10/06/2018 [facility] Type 2 diabetes mellitus without complications 10/06/2018 [facility] snf (current) use of aspirin 10/06/2018 [facility] Other joint terminal attack controller (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 10/06/2018 [facility] Gastroesophageal reflux disease (disorder) Active Problem 10/06/2018 [facility] [place] Backache (finding) Resolved Problem 10/06/2018 lumbar [facility] [place] [place] Chest pain (finding) Resolved Problem 10/06/2018 7/13 Dx as acid reflux [facility] [place] [place] Diabetes mellitus (disorder) A ctive [facility] [place] Foot swelling (finding) Active Problem 10/06/2018 [facility] [place] [place] Hypertensive disorder, systemic arterial (disorder) Active Problem 10/06/2018 [facility] [place] [place] Injury of superior glenoid labrum of sriram ulder joint (disorder) Active Prob hiral 10/06/2018 [facility] [place] Obese (finding) Active Problem 10/06/2018 [facility] [place] [place] Poor peripheral circulation (disorder) Resolved Problem 10/06/2018 swelling to LE [facility] [place],[facility] [place] Kidney stone (disorder) Resolv ed Problem [facility] [place] [place] Retained ureteric stent (disorder) Resolved Problem left [facility], [facility] [place],[facility] [place] Sleep apnea (finding) Active Problem 10/06/2018 uses CPAP [facility], O [facility] [place], [place],[facility] [place] Medications Medication Details Route Status Patient Instructions Ordering Provider Order Date Source Ketorolac 15 mg, Route: IVP, Q 6H, Dosing Weight 175, kg, Start date: 03/19/18 12:00:00 EXPERIENCE SPECIALIST, Duration: 6 doses or times, Stop date: 03/20/18 18:00:00 EXPERIENCE SPECIALIST Inactive 03/19/2018 [facility] Phenergan 25 mg, Route: IVPB, Q4H, Dosing Weight 175, kg, PRN Nausea & Vomiting, Start date: 03/19/18 10:02:00 EXPERIENCE SPECIALIST, Duration: 30 day, Stop date: 04/18/18 10:01:00 EXPERIENCE SPECIALIST Inactive 03/19/2018 [facility] Zofran 4 mg, Route: IV, Drug f orm: INJ, Q4H, Dosing Weight 175, kg, PRN Nausea, Start date: 03/19/18 10:02:00 EXPERIENCE SPECIALIST, Duration: 30 day, Stop date: 04/18/18 10:01:00 EXPERIENCE SPECIALIST Inactive 03/19/2018 [facility] Morphine 2 mg, Route: IVP, Q3H , Dosing Weight 175, kg, PRN Pain Score 1-3, Start date: 03/19/18 10:02:00 EXPERIENCE SPECIALIST, Duration: 30 day, Stop date: 04/18/18 10:01:00 EXPERIENCE SPECIALIST Inactive 03/19/2018 [facility] Tramadol 50 mg, Route: PO, Donovan g form: TAB, Q6H, Dosing Weight 175, kg, PRN Pain Score 1-3, Start date: 03/19/18 10:02:00 EXPERIENCE SPECIALIST, Duration: 30 day, Stop date: 04/18/18 10:01:00 EXPERIENCE SPECIALIST Inactive 03/19/2018 [facility] Hydromorphone 0.3 mg, Route: I GRAIN SACKER, Q3H, Dosing Weight 175, kg, PRN Pain Score 4-6, Start date: 03/19/18 10:02:00 EXPERIENCE SPECIALIST, Duration: 30 day, Stop date: 04/18/18 10:01:00 EXPERIENCE SPECIALIST Inactive 03/19/2018 [facility] Acetaminophen 325 MG / Hydrocodone Deangelo trate 5 MG Oral Tablet Route: PO, Dosing Weight 175, kg, Q4H, P RN Pain Score 4-6, Start date: 03/19/18 10:02:00 EXPERIENCE SPECIALIST, Duration: 30 day, Stop date: 04/18/18 10:01:00 EXPERIENCE SPECIALIST Inactive 03/19/2018 [facility] ceFAZolin (ANES) Route: IV, Dr ug form: INJ, ONCE, Stop date: 03/19/18 8:57:00 EXPERIENCE SPECIALIST Inactive 03/19/2018 [facility] neostigmine (ANES) Route: IV, Drug form: INJ, ONCE, Stop date: 03/19/18 8:57:00 EXPERIENCE SPECIALIST Inactive 03/19/2018 [facility] glycopyrrolate (ANES) Route: I V, Drug form: INJ, ONCE, Stop date: 03/19/18 8:57:00 EXPERIENCE SPECIALIST Inactive 03/19/2018 [facility] propofol (ANES) Route: IV, Donovan g form: INJ, ONCE, Stop date: 03/19/18 8:57:00 EXPERIENCE SPECIALIST Inactive 03/19/2018 [facility] rocuronium (ANES) Route: IV, D rug form: INJ, ONCE, Stop date: 03/19/18 8:57:00 EXPERIENCE SPECIALIST Inactive 03/19/2018 [facility] famotidine (ANES) Route: IV, D rug form: INJ, ONCE, Stop date: 03/19/18 8:57:00 EXPERIENCE SPECIALIST Inactive 03/19/2018 [facility] acetaminophen (ANES) Route: IV , Drug form: INJ, ONCE, Stop date: 03/19/18 8:57:00 EXPERIENCE SPECIALIST Inactive 03/19/2018 [facility] metoclopramide (ANES) Route: I V, Drug form: INJ, ONCE, Stop date: 03/19/18 8:57:00 EXPERIENCE SPECIALIST Inactive 03/19/2018 [facility] ondansetron (ANES) Route: IV, Drug form: INJ, ONCE, Stop date: 03/19/18 8:57:00 EXPERIENCE SPECIALIST Inactive 03/19/2018 [facility] vancomycin (ANES) Route: IV, D rug form: INJ, ONCE, Stop date: 03/19/18 8:57:00 EXPERIENCE SPECIALIST Inactive 03/19/2018 [facility] lidocaine (ANES) Route: IV, Dr ug form: INJ, ONCE, Stop date: 03/19/18 8:57:00 EXPERIENCE SPECIALIST Inactive 03/19/2018 [facility] Naloxone 0.04 mg, Route: IVP, Q2MIN, Dosing Weight 175, kg, PRN Narcotic Reversal, Start date: 03/19/18 8:33:00 EXPERIENCE SPECIALIST, Duration: 30 day, Stop date: 04/18/18 8:32:00 EXPERIENCE SPECIALIST Inactive 03/19/2018 [facility] Lactated Ringers IV 1000 mL 1, 000 mL, Rate: 100 ml/hr, Infuse over: 10 hr, Route: IV, Dosing Weight 175 kg, Total Volume: 1,000, Start date: 03/19/18 8:33:00 EXPERIENCE SPECIALIST, Duration: 30 day, Stop date: 04/18/18 8:32:00 EXPERIENCE SPECIALIST, 3.03, m2 Inactive 03/19/2018 [facility] Lactated Ringers Injection IV (ANES) 1000 mL Route: IV, Total Volume: 1,000, Start date: 03/19/18 7:53:00 EXPERIENCE SPECIALIST, Stop date: 03/19/18 8:53:00 EXPERIENCE SPECIALIST Inactive 03/19/2018 [facility] Calcium Chloride 0.0014 MEQ/ML / Potassi um Chloride 0.004 MEQ/ML / Sodium Chloride 0.103 MEQ/ML / Sodium Lactate 0.028 MEQ/ML Injectable Solution 1,000 mL, Rate: 25 ml/hr, Infuse over: 4 0 hr, Route: IV, Dosing Weight 175 kg, Total Volume: 1,000, Start date: 03/19/18 6:56:00 EXPERIENCE SPECIALIST, Duration: 30 day, Stop date: 04/18/18 6:55:00 EXPERIENCE SPECIALIST, 3.03, m2 Inactive 03/19/2018 [facility] clindamycin 300 mg oral capsule 300 mg = 1 cap, PO, TID, X 15 day, # 45 cap, 0 Refill(s) No Longer Active 03/19/2018 [facility] meclizine 25 mg oral tablet 25 mg = 1 tab, PO, PRN, 0 Refill(s) Active 03/13/2018 [facility] Metformin hydrochloride 500 MG Oral Tablet 500 mg = 1 tab, PO, Bedtime, 0 Refill(s) Active 03/13/2018 [facility] pantoprazole 40 mg oral enteric coated tablet 40 mg = 1 tab, PO, Daily, 0 Refill(s) Active 03/13/2018 [facility] Amlodipine 5 MG / valsartan 320 MG Oral Tablet 1 tab, PO, Daily, # 30 tab, 0 Refill(s) Active 03/13/2018 [facility] Glucosamine Chondroitin PO, Da melly, 0 Refill(s) Active 03/13/2018 [facility] Super B Complex oral tablet PO , Daily, 0 Refill(s) Active 03/13/2018 [facility] dapagliflozin propanediol 10 MG Oral Tablet [Stefanxiga] 10 mg = 1 tab, PO, Daily, 0 Refill(s) Active 03/13/2018 [facility] ketorolac 15 mg, 1 mL, Route: IVP, Drug form: INJ, Q6H, Dosing Weight 193.182, kg, Start date: 12/11/12 18:00:00, Duration: 6 doses or times, Stop date: 12/13/12 0:00:00 IVP No Longer Active Ceasar 12/11/2012 [facility] Lactated Ringers Injection IV 1000 mL 1,000 mL, Rate: 50 ml/hr, Infuse over: 20 hr, Route: IV, Dosing Weight 193.182 kg, Total Volume: 1,000, Start date: 12/11/12 13:42:00, Duration: 30 day, Stop date: 01/10/13 13:41:00 IV No Longer Active Johan 12/11/2012 [facility] acetaminophen-hydrocodone 325 mg-5 mg oral tablet 1 tab, Route: PO, Dosing Weight 193.182, kg, Q4H, PRN Pain Score 1-3, Start date: 12/11/12 13:42:00, Duration: 30 day, Stop date: 01/10/13 13:41:00 PO No Longer Active Johan 12/11/2012 [facility] naloxone 0.04 mg, Route: IVP, Q2MIN, Dosing Weight 193.182, kg, PRN Narcotic Reversal, Start date: 12/11/12 13:42:00, Duration: 8 doses or times, Stop date: Limited # of times IVP No Longer Active Johan 12/11/2012 [facility] ondansetron 4 mg, Route: IVP, ONCE, Dosing Weight 193.182, kg, PRN Nausea & Vomiting, Start date: 12/11/12 13:42:00 IVP No Longer Active Johan 12/11/2012 [facility] hydromorphone 0.5 mg, Route: I GRAIN SACKER, Q5Min, Dosing Weight 193.182, kg, PRN Pain Score 7-10, Start date: 12/11/12 13:42:00, Duration: 5 doses or times, Stop date: Limited # of times IVP No Longer Active [facility] 12/11/2012 [facility] fentanyl 25 microgram, Route: IVP, Q5Min, Dosing Weight 193.182, kg, PRN Pain Score 4-6, Start date: 12/11/12 13:42:00, Duration: 4 doses or times, Stop date: Limited # of times IVP No Longer Active Carmen 12/11/2012 [facility] flumazenil 0.2 mg, Route: IVP, PRN, Dosing Weight 193.182, kg, PRN Benzodiazepine Reversal, Initial dose, Start date: 12/11/12 13:42:00, Duration: 30 day, Stop date: 01/10/13 12:41:00 IVP No Longer Active [facility] 12/11/2012 [facility] morphine Sulfate 2 mg, 1 mL, R oute: IVP, Drug form: INJ, Q3H, Dosing Weight 193.182, kg, PRN Pain Score 1-3, Start date: 12/11/12 13:27:00, Duration: 30 day, Stop date: 01/10/13 13:26:00 IVP No Longer Active Nicolas 12/11/2012 [facility] acetaminophen-hydrocodone 325 mg-10 mg oral tablet 1 tab, Route: PO, Drug Form: TAB, Dosing Weight 193.182, kg, Q4H, PRN Pain Score 4-6, Start date: 12/11/12 13:27:00, Duration: 30 day, Stop date: 01/10/13 13:26:00 PO No Longer Active Nicolas 12/11/2012 [facility] gentamicin + Sodium Chloride 0.9% IV 100 mL 120 mg, 3 mL, Route: IVPB, Drug form: INJ, ONCALL, Dosing Weight 193.182, kg, Start date: 12/11/12 13:00:00, Duration: 30 day, Stop date: 01/10/13 11:59:00 IVPB No Longer Active Nicolas 12/11/2012 [facility] Levaquin 500 mg, 100 mL, Route : IV, Drug form: INJ, ONCALL, Dosing Weight 193.182, kg, Start date: 12/11/12 13:00:00 IV No Longer Active Nicolas 12/11/2012 [facility] Lactated Ringers Injection IV 1000 mL 1,000 mL, Rate: 25 ml/hr, Infuse over: 40 hr, Route: IV, Dosing Weight 193.182 kg, Total Volume: 1,000, Start date: 12/11/12 11:27:00, Duration: 30 day, Stop date: 01/10/13 11:26:00 IV No Longer Active Nick 12/11/2012 [facility] labetalol 5 mg, Route: IVP, Q5 Min, Dosing Weight 193.182, kg, PRN Elevated BP, Start date: 12/04/12 13:04:00, Duration: 5 doses or times, Stop date: Limited # of times IVP No Longer Active [place] 12/04/2012 [facility] esmolol IV Push 10 mg, Route: IVP, Q5Min, Dosing Weight 193.182, kg, PRN Elevated BP, Start date: 12/04/12 13:04:00, Duration: 5 doses or times, Stop date: Limited # of times IVP No Longer Active [place] 12/04/2012 [facility] hydrALAZINE 5 mg, Route: IVP, Q5Min, Dosing Weight 193.182, kg, PRN Elevated BP, Start date: 12/04/12 13:04:00, Duration: 4 doses or times, Stop date: Limited # of times IVP No Longer Active [place] 12/04/2012 [facility] acetaminophen-hydrocodone 325 mg-5 mg oral tablet 1 tab, Route: PO, Dosing Weight 193.182, kg, Q4H, PRN Pain Score 1-3, Start date: 12/04/12 13:04:00, Duration: 30 day, Stop date: 01/03/13 13:03:00 PO No Longer Active [place] 12/04/2012 [facility] hydromorphone 0.5 mg, Route: I GRAIN SACKER, Q5Min, Dosing Weight 193.182, kg, PRN Pain Score 7-10, Start date: 12/04/12 13:04:00, Duration: 5 doses or times, Stop date: Limited # of times IVP No Longer Active [place] 12/04/2012 [facility] ketorolac 30 mg, Route: IVP, O NCE, Dosing Weight 193.182, kg, Start date: 12/04/12 13:04:00, Duration: 1 doses or times, Stop date: 12/04/12 13:04:00 IVP Active [place] 12/04/2012 [facility] naloxone 0.04 mg, Route: IVP, Q2MIN, Dosing Weight 193.182, kg, PRN Narcotic Reversal, Start date: 12/04/12 13:04:00, Duration: 8 doses or times, Stop date: Limited # of times IVP No Longer Active [place] 12/04/2012 [facility] dexamethasone 4 mg, Route: IVP , ONCE, Dosing Weight 193.182, kg, PRN Nausea & Vomiting, Start date: 12/04/12 13:04:00 IVP No Longer Active [place] 12/04/2012 [facility] ondansetron 4 mg, Route: IVP, ONCE, Dosing Weight 193.182, kg, PRN Nausea & Vomiting, Start date: 12/04/12 13:04:00 IVP No Longer Active [place] 12/04/2012 [facility] flumazenil 0.2 mg, Route: IVP, PRN, Dosing Weight 193.182, kg, PRN Benzodiazepine Reversal, Initial dose, Start date: 12/04/12 13:04:00, Duration: 30 day, Stop date: 01/03/13 13:03:00 IVP No Longer Active [place] 12/04/2012 [facility] morphine Sulfate 2 mg, Route: IVP, Q3H, Dosing Weight 193.182, kg, PRN Pain Score 1-3, Start date: 12/04/12 12:57:00, Duration: 30 day, Stop date: 01/03/13 12:56:00 IVP No Longer Active [facility] 12/04/2012 [facility] acetaminophen-hydrocodone 325 mg-10 mg oral tablet 1 tab, Route: PO, Dosing Weight 193.182, kg, Q4H, PRN Pain Score 4-6, Start date: 12/04/12 12:57:00, Duration: 30 day, Stop date: 01/03/13 12:56:00 PO No Longer Active Ceasar 12/04/2012 [facility] gentamicin 120 mg, Route: IVPB , ONCE, Dosing Weight 193.182, kg, Start date: 12/04/12 11:27:00, Stop date: 12/04/12 11:27:00 IVPB No Longer Active Nicolas 11/09 [facility] Levaquin 500 mg, Route: IVPB, ONCE, Dosing Weight 193.182, kg, Start date: 12/04/12 11:27:00, Stop date: 12/04/12 11:27:00 IVPB No Longer Active Nicolas 11/09 [facility] Lactated Ringers Injection IV 1000 mL 1,000 mL, Rate: 25 ml/hr, Infuse over: 40 hr, Route: IV, Dosing Weight 193.182 kg, Total Volume: 1,000, Start date: 12/04/12 11:05:00, Duration: 30 day, Stop date: 01/03/13 11:04:00 IV No Longer Active Andrea 12/04/2012 [facility] tamsulosin 0.4 mg oral capsule 0.4 mg, 1 cap, PO, Daily, 30 cap, Substitution Allowed, CAP PO Active 12/04/2012 [facility] Zofran 4 mg oral tablet PO, SD N, Substitution Allowed PO Active 12/04/2012 [facility] Cipro PO, Q12H, Substitution A llowed PO Active 12/04/2012 [facility] Aspirin Low Dose 81 mg oral tablet PO, Daily, Substitution Allowed PO Active 12/04/2012 [facility] meloxicam 15 mg oral tablet 15 mg, 1 tab, PO, Daily, 30 tab, Substitution Allowed, TAB PO Active 12/04/2012 [facility] hydrochlorothiazide-triamterene 25 mg-37 .5 mg oral capsule 1 cap, PO, Daily, 30 cap, Substitution A llowed, Maintenance, CAP PO Active 12/04/2012 [facility] amLODipine 5 mg oral tablet 5 mg, 1 tab, PO, Daily, 30 tab, Substitution Allowed, TAB PO Active 12/04/2012 [facility] Bystolic 10 mg oral tablet 10 mg, 1 tab, PO, Daily, 30 tab, Substitution Allowed, TAB PO Active 12/04/2012 [facility] atorvastatin 20 mg oral tablet 20 mg, 1 tab, PO, Daily, 30 tab, Substitution Allowed, TAB PO Active 12/04/2012 [facility] Diovan 320 mg oral tablet 320 mg, 1 tab, PO, Daily, 90 tab, Substitution Allowed, TAB PO Active 12/04/2012 [facility] lansoprazole 30 mg oral delayed release capsule 30 mg, 1 cap, PO, Daily, 30 cap, Substitution Allowed PO Active 12/04/2012 [facility] Allergies, Adverse Reactions, Alerts Substance Category Reaction Severity Reaction type Status Date Reported Comments Source penicillins Assertion Drug allergy Active [facility] Immunizations No Data Provided for This [...] should be multiplied by the estimated BMI. [facility] CHEM PANEL BUN 16 7 - 22 03/13/2018 [facility] CHEM PANEL Creatinine Lvl 1.16 0.50 - 1.40 03/13/2018 [facility] CHEM PANEL Glucose Lvl 135 70 - 99 03/13/2018 [facility] CHEM PANEL Sodium Lvl 140 135 - 145 03/13/2018 [facility] CHEM PANEL Potassium Lvl 3.8 3.5 - 5.1 03/13/2018 [facility] CHEM PANEL Calcium Lvl 9.0 8.5 - 10.5 03/13/2018 [facility] CHEM PANEL CO2 30 24 - 32 03/13/2018 [facility] CHEM PANEL Chloride Lvl 104 95 - 109 03/13/2018 [facility] CHEM PANEL AGAP 9.8 10.0 - 20.0 03/13/2018 [facility] HEMATOLOGY Monocytes 8.3 2.0 - 12.0 03/13/2018 [facility] HEMATOLOGY Segs 59.7 45.0 - 75.0 03/13/2018 [facility] HEMATOLOGY Lymphocytes 28.6 20.0 - 40.0 03/13/2018 [facility] HEMATOLOGY Eosinophils 2.9 0.0 - 4.0 03/13/2018 [facility] HEMATOLOGY Monocytes # 0.7 0.0 - 0.8 03/13/2018 [facility] HEMATOLOGY Eosinophils # 0.3 0.0 - 0.5 03/13/2018 [facility] HEMATOLOGY Basophils 0.5 0.0 - 1.0 03/13/2018 [facility] HEMATOLOGY Neutrophils # 5.3 1.5 - 8.1 03/13/2018 [facility] HEMATOLOGY Lymphocytes # 2.6 1.0 - 5.5 03/13/2018 [facility] HEMATOLOGY Platelet 229 133 - 450 03/13/2018 [facility] HEMATOLOGY RDW 15.1 11.5 - 14.5 03/13/2018 [facility] MPV 8.8 7.4 - 10.4 03/13/2018 [facility] Hgb 14.3 14.0 - 18.0 03/13/2018 [facility] WBC 8.9 3.7 - 10.4 03/13/2018 [facility] HEMATOLOGY RBC 5.11 4.70 - 6.10 03/13/2018 [facility] HEMATOLOGY Hct 43.2 42.0 - 54.0 03/13/2018 [facility] MCHC 33.1 32.0 - 36.0 03/13/2018 [facility] MCH 28.0 27.0 - 31.0 03/13/2018 [facility] HEMATOLOGY MCV 84.6 80.0 - 94.0 03/13/2018 [facility] SPECIAL CHEMISTRY Hgb A1C 7.8 <=5.6 % 03/13/2018 [facility] URINALYSIS UA Color [place] 12/09/2012 NA [facility] URINALYSIS UA RBC >182 0 - 2 12/09/2012 [facility] URINALYSIS UA Sq Epi Occas ional /LPF *NA* (12/09/2012 13:30:00) Few 12/09/2012 NA [facility] URINALYSIS UA WBC 9 0 - 5 12/09/2012 [facility] URINALYSIS UA Turbidity Clear (12/09/2012 13:30:00) Clear 12/09/2012 Normal [facility] URINALYSIS UA Protein Negat tone mg/dL (12/09/2012 13:30:00) Negati ve 12/09/2012 Normal [facility] URINALYSIS UA pH 5.0 5.0 - 8.0 12/09/2012 Normal [facility] URINALYSIS UA Spec Grav 1.015 <=1.030 12/09/2012 Normal [facility] URINALYSIS UA Blood Large *ABN* (12/09/2012 13:30:00) Negati ve 12/09/2012 ABN [facility] URINALYSIS UA Urobilinogen 2.0 0.1 - 1.0 12/09/2012 HI [facility] URINALYSIS UA Nitrite Posit tone *ABN* (12/09/2012 13:30:00) Negati ve 12/09/2012 ABN [facility] URINALYSIS UA Leuk Est Negat tone (12/09/2012 13:30:00) Negati ve 12/09/2012 Normal [facility] URINALYSIS UA Glucose Negat tone mg/dL *NA* (12/09/2012 13:30:00) Negati ve 12/09/2012 NA [facility] URINALYSIS UA Ketones Negat tone mg/dL *NA* (12/09/2012 13:30:00) Negati ve 12/09/2012 NA [facility] URINALYSIS UA Bili Negat tone *NA* (12/09/2012 13:30:00) Negati ve 12/09/2012 NA [facility] Microbiology Culture: Urine 12/09/2012 [facility] CHEMISTRY eGFR 78 12/04/2012 NA <sup>1</sup>Result [...] should be multiplied by the estimated BMI. [facility] CHEMISTRY CO2 29 24 - 32 12/04/2012 Normal [facility] CHEMISTRY Creatinine Lvl 1.1 0.5 - 1.4 12/04/2012 Normal [facility] CHEMISTRY Glucose Lvl 175 70 - 99 12/04/2012 [place] <sup>2</sup>Interpretive Data: Adult ref erence range values reflect the clinical guidelines
of the [place] [employer]. [facility] CHEMISTRY BUN 15 7 - 22 12/04/2012 Normal [facility] CHEMISTRY Calcium Lvl 8.7 8.5 - 10.5 12/04/2012 Normal [facility] CHEMISTRY Potassium Lvl 3.9 3.5 - 5.1 12/04/2012 Normal [facility] CHEMISTRY Sodium Lvl 144 135 - 145 12/04/2012 Normal [facility] CHEMISTRY Chloride Lvl 107 95 - 109 12/04/2012 Normal [facility] CHEMISTRY AGAP 11.9 10.0 - 20.0 12/04/2012 Normal [facility] HEMATOLOGY Hgb 11.7 14.0 - 18.0 12/04/2012 LOW [facility] HEMATOLOGY MCV 83.6 80.0 - 94.0 12/04/2012 Normal [facility] HEMATOLOGY Hct 36.1 42.0 - 54.0 12/04/2012 LOW [facility] HEMATOLOGY RDW 14.2 11.5 - 14.5 12/04/2012 Normal [facility] HEMATOLOGY Platelet 217 133 - 450 12/04/2012 Normal [facility] HEMATOLOGY MPV 8.7 7.4 - 10.4 12/04/2012 Normal [facility] HEMATOLOGY RBC 4.32 4.70 - 6.10 12/04/2012 LOW [facility] HEMATOLOGY MCHC 32.3 32.0 - 36.0 12/04/2012 Normal [facility] HEMATOLOGY MCH 27.0 27.0 - 31.0 12/04/2012 Normal [facility] HEMATOLOGY WBC 7.0 3.7 - 10.4 12/04/2012 Normal [facility] HEMATOLOGY Segs-Bands # 5.0 1.5 - 8.1 12/04/2012 Normal [facility] HEMATOLOGY Basophils 0.2 0.0 - 1.0 12/04/2012 Normal [facility] HEMATOLOGY Eosinophils # 0.1 0.0 - 0.5 12/04/2012 Normal [facility] HEMATOLOGY Monocytes # 0.6 0.0 - 0.8 12/04/2012 Normal [facility] HEMATOLOGY Lymphocytes # 1.2 1.0 - 5.5 12/04/2012 Normal [facility] HEMATOLOGY Segs 72.1 45.0 - 75.0 12/04/2012 Normal [facility] HEMATOLOGY Eosinophils 2.1 0.0 - 4.0 12/04/2012 Normal [facility] HEMATOLOGY Monocytes 8.7 2.0 - 12.0 12/04/2012 Normal [facility] Lymphocytes 16.9 20.0 - 40.0 12/04/2012 LOW [facility] Basophils # 0.0 0.0 - 0.2 12/04/2012 Normal [facility] PTT 30.0 22.9 - 35.8 12/04/2012 Normal <sup>4</sup>Interpretive Data: Heparin T herapeutic Range: 57 - 92 Seconds [facility] PT 12.8 12.0 - 14.7 12/04/2012 Normal [facility] INR 0.97 0.85 - 1.17 12/04/2012 Normal <sup>3</sup>Interpretive Data: RECOMMEND ED RANGES FOR PROTIME INR:
2.0-3.0 for most medical and surgical thromboembolic states.
2.5-3.5 for artificial heart valves and recurrent embolism.

INR SHOULD BE USED ONLY FOR PATIENTS ON STABLE ANTICOAGULANT THERAPY. [facility] Pathology Reports No Data Provided for This Section Diagnostic Reports Report Value Date Source Shoulder w contrast MRI EXAM: MR ARTHROGRAM RIGHT SHOULDER DATE: 02/12/2018 10:01 AM EXPERIENCE SPECIALIST INDICATION: - M25.511 Pain in right shoulder [...] FOR MR ARTHROGRAM DATE: 02/12/2018 9:20 AM EXPERIENCE SPECIALIST INDICATION: - M25.511 Pain in right shoulder [...] otherwise normal. 3. Normal orbits 06/16/2015 [facility] [place] Abdomen AP view Spot images fr om Cystoscopy show a left ureteral stent in good position. SL:13 12/11/2012 [facility] Kidney pyelogram retrograde RE TROGRADE PYELOGRAPHY COMPARISON: None IMPRESSION: Multiple fluoroscopic spot radiographs are submitted, demonstrating bilateral retrograde pyelography. Refer to the operating clinician's report for further discussion. SL: 13 12/04/2012 [facility] Consultation Notes No Data Provided for This Section Discharge Summaries No Data Provided for This Section History and Physicals No Data Provided for This Section Vital Signs Vital Sign Value Date Comments Source Systolic (mm Hg) 130 03/19/2018 [facility] Diastolic (mm Hg) 67 03/19/2018 [facility] Systolic (mm Hg) 141 03/19/2018 [facility] Diastolic (mm Hg) 69 03/19/2018 [facility] Systolic (mm Hg) 123 03/19/2018 [facility] Diastolic (mm Hg) 54 03/19/2018 [facility] Respitory Rate 19 03/19/2018 [facility] Respitory Rate 19 03/19/2018 [facility] Respitory Rate 23 03/19/2018 [facility] Heart Rate 79 03/19/2018 [facility] Heart Rate 75 03/19/2018 [facility] Temperature Oral (F) 97.9 F 03/13/2018 [facility] Heart Rate 65 03/13/2018 [facility] Height 182.88 cm 03/13/2018 [facility] Weight 175 03/13/2018 [facility] BMI Calculated 52.32 03/13/2018 [facility] Systolic (mm Hg) 156 12/11/2012 [facility] Diastolic (mm Hg) 55 12/11/2012 [facility] Diastolic (mm Hg) 72 12/11/2012 [facility] Systolic (mm Hg) 150 12/11/2012 [facility] Respitory Rate 17 12/11/2012 [facility] Systolic (mm Hg) 135 12/11/2012 [facility] Diastolic (mm Hg) 65 12/11/2012 [facility] Respitory Rate 14 12/11/2012 [facility] Respitory Rate 18 12/11/2012 [facility] Heart Rate 66 12/11/2012 [facility] Temperature Oral (F) 98.3 F 12/09/2012 [facility] Heart Rate 74 12/09/2012 [facility] Height 177.8 cm 12/09/2012 [facility] Weight 193.182 12/09/2012 [facility] Diastolic (mm Hg) 70 12/04/2012 [facility] Systolic (mm Hg) 144 12/04/2012 [facility] Respitory Rate 19 12/04/2012 [facility] Systolic (mm Hg) 146 12/04/2012 [facility] Diastolic (mm Hg) 75 12/04/2012 [facility] Systolic (mm Hg) 145 12/04/2012 [facility] Diastolic (mm Hg) 63 12/04/2012 [facility] Respitory Rate 16 12/04/2012 [facility] Respitory Rate 18 12/04/2012 [facility] Heart Rate 73 12/04/2012 [facility] Temperature Oral (F) 98.3 F 12/04/2012 [facility] Weight 193.182 12/04/2012 [facility] Height 177.8 cm 12/04/2012 [facility] Encounters Location Location Details Encounter Type Encounter Number Reason For Visit Attending Provider ADM Date DC Date Status Source [facility] DS [id number] MARIANN CEASAR 12/04/2012 12/04/2012 Discharged [facility] DS [id number] [facility] CEASAR 12/11/2012 12/11/2012 Discharged [facility] - [place] [facility] [id number] Baltazar Guerrero 06/16/2015 06/17/2015 [facility] [place] [facility] [id number] Oswald Wyatt 02/12/2018 02/13/2018 [facility] Day Surgery [id number] Oswald Fontanezn 03/19/2018 03/19/2018 [facility] [place] [facility] Therapy Patients [id number] Oswald Wyatt 04/07/2018 05/07/2018 [facility] [place] [facility] Patients [id number] Oswald Fontanezn 05/07/2018 06/06/2018 [facility] [place] Procedures Procedure Code Date Perfomer Comments Source Injection procedure for shoulder arthrog bakari or enhanced CT/MRI shoulder arthrography 55405 02/12/2018 [facility] Cystourethroscopy, with insertion of ind welling ureteral stent (eg, De [place] or double-J type) [id number] 12/11/2012 [facility] Cystourethroscopy, with ureteroscopy and /or pyeloscopy; with removal or manipulation of calculus (ureteral catheterization is included) 28604 12/11/2012 [facility] Transurethral Removal of Obstruction fro m Ureter and Renal Pelvis [id number] 12/11/2012 [facility] Ureteral Catheterization C0041 953 12/11/2012 [facility] Shoulder joint operations<sup>1</sup> [id number] 03/10/2010 SLAP tear [facility] Harika casillas 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 [id number] 03/10/2007 [facility], [facility] [place] 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<sup>1</sup> [id number] [facility] & [facility] [place] Shoulder joint operations 1794 08057 [facility] [place] Stent placement [id number] [facility] Ablation [id number] [facility] Cardiac catheterization [id number] 19 [facility] Cholecystectomy [id number] [facility] 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 <sup>1</sup> [id number] 1bone graft & metal plate [facility] Lithotripsy [id number] [facility] Shoulder joint operations 2776 72130 [facility] 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 [id number] [facility] Ablation [id number] OP[facility] He rmann, [facility] [place], [facility] [place] Arthroplasty of knee [id number] OPILexi Parks,[facility] [place] Cardiac catheterization [id number] 01 OP[facility] Stone, [facility] [place],[facility] [place] Cholecystectomy [id number] OPID Parks, [facility] [place],[facility] [place] 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<sup>2</sup> [id number] bone graft & metal plate OPILexi Ritter,[facility] [place] Lithotripsy [id number] OP[facility] Stone, [facility] [place],[facility] [place] Stent placement [id number] OPILexi Ritter, [facility] [place],[facility] [place] Assessment and Plan No Data Provided for This Section Plan of Care No Data Provided for This Section Social History Social History Date Source Social History TypeResponse Substance Abuse Use: None. Alcohol Never Smoking Status Never smoker; Exposure to Tobacco Smoke None; Cigarette Smoking Last 365 Days No; Reg Smoking Cessation Counseling No entered on: 03/13/18 03/13/2018 [facility] [place] Social History TypeResponse Substance Abuse Use: None. [...]
--- OUTSIDE RECORDS SUMMARY | 2019-12-06 12:18 | XMS REPORT | Clinical Summary ---
Author Author [facility] Address Unknown Phone Unavailable Care Team Providers Care Backend Developer Name Role Phone Troy Guerrero MD PCP [...] Active glucosam/chond/collagen/h Take by 0 yalur mouth. ([id number] LUR AC ORAL) Active Problems Problem Noted [...] Assigned at Date Recorded Not on file Last Filed Vital Signs Not on file Plan of Treatment Health Maintenance Due Date Last Done Comments DIABETIC RETINAL EYE EXAM 1963 DIABETIC FOOT EXAM 1973 URINE MICROALBUMIN 1973 COLONOSCOPY SCREENING 2013 SHINGLES VACCINES (#1) 2013 INFLUENZA VACCINE 10/09/2019 Results Not on fileafter 12/05/2018 Insurance Type Payer Benefit Subscriber ID Effective Phone Address Plan / Dates Group PPO BCBS BCBS OUT [id number] 2018- OF STATE Present [phone] Advance Directives For more information, please contact: [phone] 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
--- OUTSIDE RECORDS SUMMARY | 2019-12-06 12:19 | XMS REPORT | Continuity of Care Document ---
Author Author [facility] t Organization [facility] Address [address] [place] [address] Phone Unavailable Care Team Providers Care Secure Software Assessor Name Role Phone DO KARTHIKEYAN GUERRERO DO PCP CASTANEDA, SOUHEIL Attphys Unavailable Ashley BOCANEGRA Attphys Unavailable Celestino SALDAÑA Attphys Unavailable CARLOS COX Attphys Unavailable CHARI EPPS Attphys Unavailable NAVARRO CHONG Attphys Unavailable DOMENIC CHAPMAN Attphys Unavailable Soto Wyatt Attphys RASHMI, HIGGINS Attphys Unavailable Spencer Guerrero Attphys CASTANEDA, SOUHEIL Admphys Unavailable RASHMI, HIGGINS Admphys Unavailable Payers Payer Name Policy Type Policy Number Effective Date Expiration Date S jasen [employer] [place] Ppo [id number] 2019 00:00:00 [facility] Problems Condition Name Condition Details Condition Category Status Onset Date Resolution Date Last Treatment Date Treating Clinician Comments Source LANG CROFT Active 03/04/2018 [facility] Active 2018-03-04 00:00:00 2018-03-19 06:00:00 M lucinda Ritter RT SHOULDER RT S SIMI Active 10/08/2017 [facility] [place] Diagnosis Active 2017-10-08 08:00:00 2018-05-07 15:58:00 [facility] 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 H 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 H Active 05/31/2015 FIONA Christy Diagnosis Active 2015-05-31 00:01:00 2015-06-16 12:29:00 M lucinda Ritter ICD NOT GIVEN / CPT 48844 [id number] ICD NOT GIVEN / CPT 87400 [id number] Active 12/04/2012 [facility] Ac tive 2012-12-04 00:00:00 2012-12-11 09:31:00 M lucinda Ritter STONE 592.0 592.1/CPT 32940 19997 STONE 592.0 592.1/CPT 71776 56707 Active 12/03/2012 [facility] Active 12-03 00:00:00 2012-12-04 09:25:00 Jyoti arora Calculus of kidney Kidney stone Problem Active [facility] Fever Fever Problem Active [facility] Pneumonia Pneumonia Problem Active [facility] Pyelonephritis Pyelonephritis Problem Active [facility] Hydronephrosis Hydronephrosis Problem Active [facility] Renal insufficiency Renal insufficiency Problem Active [facility] Calculus of ureter Ureterolithiasis Problem Active [facility] Acute pyelonephritis Problem Active [facility] Dehydration Problem Active [facility] Chronic renal failure Problem Active [facility] Hyperglycemia Problem Active [facility] Diabetes mellitus Problem Active [facility] Severe sepsis Problem Active [facility] Urinary tract infection Problem Active [facility] Acute renal failure superimposed on chronic kidney disease Kris martínez Active [facility] Incomplete rotator cuff tear or rupture of right shoulder, not specified as traumatic Incomplete rotat or cuff tear or rupture of right shoulder, not specified as traumatic 09/02/2018 FIONA Ritter Problem 2018-09-02 11:20:31 [facility] Bicipital tendinitis, right shoulder Bicipital tendinitis, right shoulder 09/02/2018 FIONA Gagnonann Problem 2018-09-02 11:20:31 [facility] Effusion, left knee Effu altagracia, left knee 09/02/2018 [facility] 2018-09-02 11:20:31 Jyoti Ritter Pain in left knee Pain in left knee 09/02/2018 [facility] Problem 2018-09-02 11:20:31 [facility] Strain of muscle, fascia and tendon of l jigna head of biceps, right arm, initial encounter Strain of muscle , fascia and tendon of long head of biceps, right arm, initial encounter 10/06/2018 [facility] 2018-10-06 14:18:02 [facility] Other synovitis and tenosynovitis, right shoulder Other synovitis and tenosynovitis, right shoulder 10/06/2018 [facility] 2018-10-06 14:18:02 [facility] Loose body in right shoulder L oose body in right shoulder 10/06/2018 [facility] 2018-10-06 14:1 8:02 [facility] Primary osteoarthritis, right shoulder Primary osteoarthritis, right shoulder 10/06/2018 [facility] 2018-10-06 14:18:02 [facility] Morbid (severe) obesity due to excess calories Morbid (severe) obesity due to excess calories 10/06/2018 [facility] 2018-10-06 14:18:02 [facility] Body mass index (BMI) 50-59.9 , adult Body mass index (BMI) 50-59.9 , adult 10/06/2018 [facility] 2018-10-06 14:18:02 [facility] Essential (primary) hypertension Essential (primary) hypertension 10/06/2018 [facility] 2018-10-06 14:18:02 [facility] Gastro-esophageal reflux disease without esophagitis Gastro-esophageal reflux disease without esophagitis 10/06/2018 [facility] 2018-10-06 14:18:02 [facility] Type 2 diabetes mellitus without complications Type 2 diabetes mellitus without complications 10/06/2018 [facility] 2018-10-06 14:18:02 [facility] USP (current) use of aspirin director long term care (current) use of aspirin 10/06/2018 [facility] 2018-09-09 0 14:18:02 [facility] 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 10/06/2018 [facility] Problem 2018-10-06 14:18:02 Jyoti Gagnonann Chest pain Ches t pain Resolved Problem 12/18/2012 27/13 Dx as acid reflux [facility] Problem Resolved 2012-12-18 02: 08:29 Jyoti Ritetr Poor peripheral circulation Po or peripheral circulation Resolved Problem 12/18/2012 3swelling to LE [facility] Problem Resolved 2012-12-18 02:08:29 Jyoti Gagnonann Backache (finding) Back ache (finding) Resolved Problem 10/06/2018 lumbar FIONA Ritter, [facility] [place], [place], [facility] [place] Problem Resolved 2018-10-06 14:18:02 Jyoti Gagnonann Chest pain (finding) Ches t pain (finding) Resolved Problem 10/06/2018 7/13 Dx as acid reflux FIONA iRtter, [facility] [place], [place], [facility] [place] Problem Resolved 2018-10-06 14:18:02 Jyoti Stone Poor peripheral circulation (disorder) Poor peripheral circulation (disorder) Resolved Problem 10/06/2018 swelling to LE FIONA Ritter, [facility] [place], [place], [facility] [place] Problem Resolved 2018-10-06 14:18:02 Jyoti Ritter Retained ureteric stent (disorder) Retained ureteric stent (disorder) Resolved Problem 10/06/2018 left FIONA Ritter, [facility] [place], [place], [facility] [place] Problem Resolved 2018-10-06 14:18:0 2 Jyoti Ritter Acid reflux Acid reflux Active Problem 12/18/2012 [facility] Problem Active 2012-12-18 02:08:29 [place] morial [place] Back pain Back pain Active Problem 12/18/2012 1lumbar [place] Problem Active 2012-12-18 02:08:29 Jyoti Ritter Foot swelling Foot swelling Active Problem 12/18/2012 [facility] Problem Active 2012-12-18 02:08:29 Jyoti Ritter GERD - Gastro-esophageal reflux disease GERD - Gastro- esophageal reflux disease Active Problem 12/18/2012 [facility] Problem A ctive 2012-12-18 02:08:29 Jyoti ulysses HTN - Hypertension HTN - Hypertension Active Problem 12/18/2012 [facility] Problem Active 2012-12-18 02:08:29 Jyoti Stone Obese Obes e Active Problem 12/18/2012 [facility] Problem Active 2012-12-18 02:08:29 [facility] Renal stone Kusum l stone Active Problem 12/18/2012 [facility] Problem Active 2012-12-18 02:08:29 [place] benito Ritter Retained ureteral stent Vandana ined ureteral stent Active Problem 12/18/2012 4left [facility] Problem Active 2012-12-18 02:0 8:29 [facility] Sleep apnea Slee p apnea Active Problem 12/18/2012 5uses CPAP [facility] Problem Active 2012-12-18 02:08:29 [facility] Gastroesophageal reflux disease (disorder) Gastroesophageal reflux disease (disorder) Active Problem 10/06/2018 FIONA Ritter, [facility] [place],[facility], [facility] [place] Problem Active 2018-10-06 14:18:02 [facility] Foot swelling (finding) Foot swelling (finding) Active Problem 10/06/2018 FIONA Ritter, [facility] [place],[facility], [facility] [place] Problem Active 2018-10-06 14:18:02 [facility] Hypertensive disorder, systemic arterial (disorder) Hypertensive disorder, systemic arterial (disorder) Active Problem 10/06/2018 FIONA Ritter, [facility] [place],[facility], [facility] [place] Problem A ctive 2018-10-06 14:18:02 [facility] Injury of superior glenoid labrum of shoulder joint (d isorder) Injury of superior glenoid labrum of shoulder joint (disorder) Active Problem 10/06/2018 FIONA Ritter,[facility], [facility] [place] Problem Active 2018-10-06 14:18:02 [facility] Obese (finding) Obes e (finding) Active Problem 10/06/2018 FIONA Ritter, [facility] [place],[facility], [facility] [place] Problem A ctive 2018-10-06 14:18:02 [facility] Sleep apnea (finding) Slee p apnea (finding) Active Problem 10/06/2018 uses CPAP FIONA Ritter, [facility] [place],[facility], [facility] [place] Problem Active 2018-10-06 14:18:02 Misael Ritter Superior glenoid labrum lesion of right shoulder, init ial encounter Superior glenoid labrum lesion of right shoulder, initial encounter 03/25/2018 10/06/2018 DANIEL Johnson Problem 2018-03-25 04:5 9:23 2018-10-06 14:18:02 2018-10-06 14:18:02 Jyoti arora Impingement syndrome of right shoulder Impingement syndrome of right shoulder 02/21/2018 09/02/2018 DANIEL Ritter Problem 2018-02-21 05:43:43 2018-09-02 11:20:31 2018-09-02 11:20:31 Jyoti Ritter Allergies, Adverse Reactions, Alerts Allergy Name Allergy Type Status Severity Reaction(s) Onset Date Inacti ve Date Treating Clinician Comments Source Penicillin Allergy to substance Active Mild RASH 2019-11-04 00:00:00 [facility] Penicillins Propensity to adverse reactions to drug Active Rash 2018-10-09 00:00:00 Jose Luis starkey Penicillins [place] Active [place] 2013-12-14 00:00:00 [facility] penicillins penicillins Active Jyoti Ritter Family History Family Member Diagnosis Comments Start Date Stop Date Source Maternal grandmother Diabetes [facility] Yarsanism Natural mother Diabetes [facility] thodist Social History Social Habit Start Date Stop Date Quantity Comments Source History SDOH Alcohol Std Drinks [place] Yarsanism History SDOH Alcohol Binge [facility] Tobacco use and exposure 2018-10-15 00:00:00 2018-10-15 00:00:00 Stephanie guillermo used [place] Yarsanism Alcohol intake 2018-10-15 00:00:00 2018-10-15 00:00:00 Lifetime non-drinker (finding) [place] Yarsanism History SDOH Alcohol Frequency 2018-10-09 00:00:00 2018-10-09 00:00:0 0 1 [place] Yarsanism Social History 2015-06-17 04:59:00 2015-06-17 04:59:00 Jyoti Ritter Sex [birth year] At 1965 00:00:00 1965 00:00:00 Male [facility] Smoking Status Start Date Stop Date Source Never smoker Jose Luis starkey Medications Ordered Medication Name Filled Medication Name Start Date Stop Da te Current Medication? Ordering Clinician Indication Dosage Frequency Signature (SIG) Comments Components Source Ciprofloxacin Hcl (Cipro) 500 Mg TABLET Ciprofloxacin Hcl (C ipro) 500 Mg TABLET 2019-11-02 21:13:00 Yes 500 Every 12 Hours [facility] Acetaminophen With Codeine (Tylenol With Codeine #3 Ta blet) 1 Each TABLET Acetaminophen With Codeine (Tylenol With Codeine #3 Tablet) 1 Each TABLET 2019-04-01 12:56:00 Yes 300 Every 4 Hours for Pain [facility] Levofloxacin (Levaquin) 750 Mg TABLET Levofloxacin (Levaquin ) 750 Mg TABLET 2019-04-01 12:56:00 Yes 750 Daily [facility] Ondansetron Hcl (Zofran*) 4 Mg TABLET Ondansetron Hcl (Zofra n*) 4 Mg TABLET 2019-04-01 12:56:00 Yes 4 Every 6 Hours as n eeded for Nausea [facility] Tamsulosin Hcl (Flomax*) 0.4 Mg CAP Tamsulosin Hcl (Flomax*) 0.4 Mg CAP 2019-04-01 12:56:00 Yes .4 Daily [facility] dapagliflozin (FARXIGA) 5 mg tablet 2018-10-14 16:19:34 [...] mg tablet 2018-10-14 16:19:34 Ye s 25mg [id number] Take 25 mg by mouth 3 (three) times a da y as needed for dizziness. Jose Luis Mejia B complex with C#20-folic acid 1 mg capsule 2018-10-14 16:19:34 Yes QD Take by mouth daily. Jose Luis alexandra glucosam/chond/collagen/hyalur ([id number] AC ORAL) 2018-10-14 16:19:34 Yes Take by mouth. Jose Luis Mejia Ketorolac 2018-03-19 18:00:00 No 15 mg, Route: IVP, Q6H, Dosing Weight 175, kg, Start date: 03/19/18 12:00:00 [employer] ENGINEER, Duration: 6 doses or times, Stop date: 03/20/18 18:00:00 [employer]TE[employer] ENGINEER Daniel Ritter Phenergan 2018-03-19 16:02:00 No 25 mg, Route: IVPB, Q4H, Dosing Weight 175, kg, PRN Nausea & Vomiting, Start date: 03/19/18 10:02:00 [employer] ENGINEER, Duration: 30 day, Stop date: 04/18/18 10:01:00 [employer]INTENANCE ENGINEER [facility] Zofran 2018-03-19 16:02:00 No 4 mg, Route: IV, Drug form: INJ, Q4H, Dosing Weight 175, kg, PRN Nausea, Start date: 03/19/18 10:02:00 [employer]INTENANCE ENGINEER, Duration: 30 day, Stop date: 04/18/18 10:01:00 [employer]INTENANCE ENGINEER [facility] Morphine 2018-03-19 16:02:00 No 2 mg, Route: IVP, Q3H, Dosing Weight 175, kg, PRN Pain Score 1-3, Start date: 03/19/18 10:02:00 [employer]TENAN[employer] ENGINEER, Duration: 30 day, Stop date: 04/18/18 10:01:00 [employer]ED [employer]INTENANCE ENGINEER [place] ben[place] Ritter Tramadol 2018-03-19 16:02:00 No 50 mg, Route: PO, Drug form: TAB, Q6H, Dosing Weight 175, kg, PRN Pain Score 1-3, Start date: 03/19/18 10:02:00 [employer]INTENAN[employer] ENGINEER, Duration: 30 day, Stop date: 04/18/18 10:01:00 [facility] Hydromorphone 2018-03-19 16:02:00 No 0.3 mg, Route: IVP, Q3H, Dosing Weight 175, kg, PRN Pain Score 4-6, Start date: 03/19/18 10:02:00 [employer]TENAN[employer] ENGINEER, Duration: 30 day, Stop date: 04/18/18 10:01:00 [facility] Acet[facility] 325 MG / Hydrocodone Bitartrate 5 MG Oral Tabl et 2018-03-19 16:02:00 No Route: PO, Dosing Weight 175, kg, Q4H, PRN Pain Score 4-6, Start date: 03/19/18 10:02:00 [employer]INTENANCE ENGINEER, Duration: 30 day, Stop date: 04/18/18 10:01:00 [facility] ceFAZolin (ISABEL) 2018-03-19 14:57:00 No Route: IV, Drug form: INJ, ONCE, Stop date: 03/19/18 8:57:00 [employer] MAINTENANCE ENGINEER [facility] ne[facility] ([facility] 2018-03-19 14:57:00 No Route: IV, Drug form: INJ, ONCE, Stop date: 03/19/18 8:57:00 [employer] MAINTENANCE ENGINEER [facility] glycopyrrolate ([facility]) 2018-03-19 14:57:00 No Route: IV, Drug form: INJ, ONCE, Stop date: 03/19/18 8:57:00 [facility] propofol (ISABELS) 2018-03-19 14:57:00 No Route: IV, Drug form: INJ, ONCE, Stop date: 03/19/18 8:57:00 [employer]INTENANCE ENGINEER [facility] rocuronium ([facility]) 2018-03-19 14:57:00 No Route: IV, Drug form: INJ, ONCE, Stop date: 03/19/18 8:57:00 [employer]INTENANCE ENGINEER [place] ben[place] Ritter famotidine ([facility]) 2018-03-19 14:57:00 No Route: IV, Drug form: INJ, ONCE, Stop date: 03/19/18 8:57:00 [employer]TENANCE ENGINEER [place] benito Ritter acetaminophen (ISABELS) 2018-03-19 14:57:00 No Route: IV, Drug form: INJ, ONCE, Stop date: 03/19/18 8:57:00 [employer]TE[employer] ENGINEER Jyoti Ritter metoclopramide (ANES) 2018-03-19 14:57:00 No Route: IV, Drug form: INJ, ONCE, Stop date: 03/19/18 8:57:00 [employer] MAINTENANCE ENGINEER [facility] ondansetron ([facility]) 2018-03-19 14:57:00 No Route: IV, Drug form: INJ, ONCE, Stop date: 03/19/18 8:57:00 [employer] MAINTENANCE ENGINEER [place] benito Ritter vancomycin (ANES) 2018-03-19 14:57:00 No Route: IV, Drug form: INJ, ONCE, Stop date: 03/19/18 8:57:00 [employer] MAINTENANCE ENGINEER [place] benito Ritter lidocaine (ANES) 2018-03-19 14:57:00 No Route: IV, Drug form: INJ, ONCE, Stop date: 03/19/18 8:57:00 [employer] MAINTENANCE ENGINEER [place] benito Ritter Naloxone 2018-03-19 14:33:00 No 0.04 mg, Route: IVP, Q2MIN, Dosing Weight 175, kg, PRN Narcotic Reversal, Start date: 03/19/18 8:33:00 [employer]TENANCE ENGINEER, Duration: 30 day, Stop date: 04/18/18 8:32:00 [employer]INTENANCE ENGINEER Jyoti Ritter Lactated Ringers IV 1000 mL 2018-03-19 14:33:00 No 1,000 mL, Rate: 100 ml/hr, Infuse over: 10 hr, Route: IV, Dosing Weight 175 kg, Total Volume: 1,000, Start date: 03/19/18 8:33:00 [employer]INTENANCE ENGINEER, Duration: 30 day, Stop date: 04/18/18 8:32:00 [employer]ED [employer] MAINTENANCE ENGINEER, 3.03, m2 [facility] Lactated Ringers Injection IV (ANES) 1000 mL 2018-03-19 13:53:00 No Route: IV, Total Volume: 1,000, Start date: 03/19/18 7:53:00 [employer]ED [employer] MAINTENANCE ENGINEER, Stop date: 03/19/18 8:53:00 [employer]IC[employer]ED [employer] MAINTENANCE ENGINEER [facility] Calcium Chloride 0.0014 MEQ/ML / Potassi um Chloride 0.004 MEQ/ML / Sodium Chloride 0.103 MEQ/ML / Sodium Lactate 0.028 MEQ/ML Injectable Solution 2018-03-19 12:56:00 No 1,000 mL, Rate: 25 ml/hr, Infuse over: 40 hr, Route: IV, Dosing Weight 175 kg, Total Volume: 1,000, Start date: 03/19/18 6:56:00 [employer]INTENANCE ENGINEER, Duration: 30 day, Stop date: 04/18/18 6:55:00 [employer]ED [employer] MAINTENANCE ENGINEER, 3.03, m2 [facility] clindamycin 300 mg oral capsule 2018-03-19 11:49:00 No 300 mg = 1 cap, PO, TID, X 15 day, # 45 cap, 0 Refill(s) [facility] meclizine 25 mg oral tablet 2018-03-13 21:56:00 Yes 25 mg = 1 tab, PO, PRN, 0 Refill(s) Jyoti Stone Metformin hydrochloride 500 MG Oral Tablet 2018-03-13 21:55:00 Yes 500 mg = 1 tab, PO, Bedtime, 0 Refill(s) [facility] pantoprazole 40 mg oral enteric coated tablet 2018-03-13 21:55:0 0 Yes 40 mg = 1 tab, PO, Daily, 0 Refill(s) [facility] Amlodipine 5 MG / valsartan 320 MG Oral Tablet 2018-03-13 21:55: 00 Yes 1 tab, PO, Daily, # 30 tab, 0 Refill(s) Jyoti Ritter Glucosamine Chondroitin 2018-03-13 21:54:00 Yes PO, Daily, 0 Refill(s) [facility] Super B Complex oral tablet 2018-03-13 21:54:00 Yes PO, Daily, 0 Refill(s) [facility] dapagliflozin propanediol 10 MG Oral Tablet [Farxiga] 2018-03-13 21:54:00 Yes 10 mg = 1 tab, PO, Daily, 0 Refill(s) [facility] ketorolac 2012-12-11 23:00:00 No Baldev Lizh Nicolas 15 mg, 1 mL, Route: IVP, [...] 30 day, Stop date: 01/10/13 13:41:00 [facility] acetaminophen-hydrocodone 325 mg-5 mg oral tablet 18:42:00 No Shruthi Leung Maxian 1 tab, Route: PO , Dosing Weight 193.182, kg, Q4H, PRN Pain Score 1-3, Start date: 12/11/12 13:42:00, Duration: 30 day, Stop date: 01/10/13 13:41:00 [facility] naloxone 2012-12-11 18:42:00 No Shruthi Leung Maxian 0.04 mg, Route: IVP, Q2MIN, Dosing Weight 193.182, kg, PRN Narcotic Reversal, Start date: 12/11/12 13:42:00, Duration: 8 doses or times, Stop date: Limited # of times [facility] ondansetron 2012-12-11 18:42:00 No Shruthi Leung Maxian 4 mg, Route: IVP, ONCE, Dosing Weight 193.182, kg, PRN Nausea & Vomiting, Start date: 12/11/12 13:42:00 [facility] hydromorphone 2012-12-11 18:42:00 No Shruthi Leung Maxian 0.5 mg, Route: IVP, Q5Min, Dosing Weight 193.182, kg, PRN Pain Score 7-10, Start date: 12/11/12 13:42:00, Duration: 5 doses or times, Stop date: Limited # of times [facility] fentanyl 2012-12-11 18:42:00 No Raphael Morales 25 microgram, Route: IVP, Q5Min, Dosing Weight 193.182, kg, PRN Pain Score 4-6, Start date: 12/11/12 13:42:00, Duration: 4 doses or times, Stop date: Limited # of times [facility] flumazenil 2012-12-11 18:42:00 No Shruthi Leung Maxian 0.2 mg, Route: IVP, PRN, Dosing Weight 193.182, kg, PRN Benzodiazepine Reversal, Initial dose, Start date: 12/11/12 13:42:00, Duration: 30 day, Stop date: 01/10/13 12:41:00 [facility] morphine Sulfate 2012-12-11 18:27:00 No Baldev Owens Nguye n 2 mg, 1 mL, Route: IVP, Drug form: INJ, Q3H, Dosing Weight 193.182, kg, PRN Pain Score 1-3, Start date: 12/11/12 13:27:00, Duration: 30 day, Stop date: 01/10/13 13:26:00 [facility] acetaminophen-hydrocodone 325 mg-10 mg oral tablet 2012-12 18:27:00 No Baldev Owens Nicolas 1 tab, Route: P O, Drug Form: TAB, Dosing Weight 193.182, kg, Q4H, PRN Pain Score 4-6, Start date: 12/11/12 13:27:00, Duration: 30 day, Stop date: 01/10/13 13:26:00 [facility] gentamicin + Sodium Chloride 0.9% IV 100 mL 2012-12-11 18: 00:00 No Baldev Owens Nicolas 120 mg, 3 mL, Ro [place]: IVPB, Drug form: INJ, ONCALL, Dosing Weight 193.182, kg, Start date: 12/11/12 13:00:00, Duration: 30 day, Stop date: 01/10/13 11:59:00 [facility] Levaquin 2012-12-11 18:00:00 No Baldev Owens Nicolas 500 mg, 100 mL, Route: IV, Drug form: INJ, ONCALL, Dosing Weight 193.182, kg, Start date: 12/11/12 13:00:00 [facility] Lactated Ringers Injection IV 1000 mL 2012-12-11 16:27:00 No Yosef Starkey Nick 1,000 mL, Rate: 25 ml/hr, Infuse over: 40 hr, Route: IV, Dosing Weight 193.182 kg, Total Volume: 1,000, Start date: 12/11/12 11:27:00, Duration: 30 day, Stop date: 01/10/13 11:26:00 [facility] labetalol 2012-12-04 18:04:00 No Delroy Crum 5 mg, Route: IVP, Q5Min, Dosing Weight 193.182, kg, PRN Elevated BP, Start date: 12/04/12 13:04:00, Duration: 5 doses or times, Stop date: Limited # of times [facility] esmolol IV Push 2012-12-04 18:04:00 No Delroy Luque Bake r 10 mg, Route: IVP, Q5Min, Dosing Weight 193.182, kg, PRN Elevated BP, Start date: 12/04/12 13:04:00, Duration: 5 doses or times, Stop date: Limited # of times [facility] hydrALAZINE 2012-12-04 18:04:00 No Delroy Crmu 5 mg, Route: IVP, Q5Min, Dosing Weight 193.182, kg, PRN Elevated BP, Start date: 12/04/12 13:04:00, Duration: 4 doses or times, Stop date: Limited # of times [facility] acetaminophen-hydrocodone 325 mg-5 mg oral tablet 18:04:00 No Delroy Crum 1 tab, Route: PO, Dosing Weight 193.182, kg, Q4H, PRN Pain Score 1-3, Start date: 12/04/12 13:04:00, Duration: 30 day, Stop date: 01/03/13 13:03:00 [facility] hydromorphone 2012-12-04 18:04:00 No Delroy Crum 0.5 mg, Route: IVP, Q5Min, Dosing Weight 193.182, kg, PRN Pain Score 7-10, Start date: 12/04/12 13:04:00, Duration: 5 doses or times, Stop date: Limited # of times [facility] ketorolac 2012-12-04 18:04:00 Yes Delroy Crum 30 mg, Route: IVP, ONCE, Dosing Weight 193.182, kg, Start date: 12/04/12 13:04:00, Duration: 1 doses or times, Stop date: 12/04/12 13:04:00 [facility] naloxone 2012-12-04 18:04:00 No Delroy Crum 0.04 mg, Route: IVP, Q2MIN, Dosing Weight 193.182, kg, PRN Narcotic Reversal, Start date: 12/04/12 13:04:00, Duration: 8 doses or times, Stop date: Limited # of times [facility] dexamethasone 2012-12-04 18:04:00 No Delroy Luque Crum 4 mg, Route: IVP, ONCE, Dosing Weight 193.182, kg, PRN Nausea & Vomiting, Start date: 12/04/12 13:04:00 [facility] ondansetron 2012-12-04 18:04:00 No Delroy Luque Crum 4 mg, Route: IVP, ONCE, Dosing Weight 193.182, kg, PRN Nausea & Vomiting, Start date: 12/04/12 13:04:00 [facility] flumazenil 2012-12-04 18:04:00 No Delroy Crum 0.2 mg, Route: IVP, PRN, Dosing Weight 193.182, kg, PRN Benzodiazepine Reversal, Initial dose, Start date: 12/04/12 13:04:00, Duration: 30 day, Stop date: 01/03/13 13:03:00 [facility] morphine Sulfate 2012-12-04 17:57:00 No Baldev Owens Nguye n 2 mg, Route: IVP, Q3H, Dosing Weight 193.182, kg, PRN Pain Score 1-3, Start date: 12/04/12 12:57:00, Duration: 30 day, Stop date: 01/03/13 12:56:00 [facility] acetaminophen-hydrocodone 325 mg-10 mg oral tablet 2012-11 17:57:00 No Baldev Graciela Nicolas 1 tab, Route: P O, Dosing Weight 193.182, kg, Q4H, PRN Pain Score 4-6, Start date: 12/04/12 12:57:00, Duration: 30 day, Stop date: 01/03/13 12:56:00 [facility] gentamicin 2012-12-04 16:27:00 No Baldev Graciela Nicolas 120 mg, Route: IVPB, ONCE, Dosing Weight 193.182, kg, Start date: 12/04/12 11:27:00, Stop date: 12/04/12 11:27:00 [facility] Levaquin 2012-12-04 16:27:00 No Baldev Graciela Nicolas 500 mg, Route: IVPB, ONCE, Dosing Weight 193.182, kg, Start date: 12/04/12 11:27:00, Stop date: 12/04/12 11:27:00 Jyoti Ritter Lactated Ringers Injection IV 1000 mL 2012-12-04 16:05:00 Karen Denton Mendez 1,000 mL, Rate: 25 ml/hr, Infuse over: 40 hr, Route: IV, Dosing Weight 193.182 kg, Total Volume: 1,000, Start date: 12/04/12 11:05:00, Duration: 30 day, Stop date: 01/03/13 11:04:00 [place] tinyphyllis Gagnonann tamsulosin 0.4 mg oral capsule 2012-12-04 15:20:21 Yes 0.4 mg, 1 cap, PO, Daily, 30 cap, Substitution Allowed, CAP [facility] Zofran 4 mg oral tablet 2012-12-04 15:20:08 Yes PO, PRN, Substitution Allowed [facility] Cipro 2012-12-04 15:19:57 Yes PO, Q12H, Subs titution Allowed [facility] Aspirin Low Dose 81 mg oral tablet 2012-12-04 15:14:56 Yes PO, Daily, Substitution Allowed [facility] meloxicam 15 mg oral tablet 2012-12-04 15:14:50 Yes 15 mg, 1 tab, PO, Daily, 30 tab, Substitution Allowed, TAB [facility] hydrochlorothiazide-triamterene 25 mg-37.5 mg oral capsule 2012-12-04 15:14:41 Yes 1 cap, PO, Daily, 30 cap , Substitution Allowed, Maintenance, CAP [facility] amLODipine 5 mg oral tablet 2012-12-04 15:14:13 Yes 5 mg, 1 tab, PO, Daily, 30 tab, Substitution Allowed, TAB [facility] Bystolic 10 mg oral tablet 2012-12-04 15:13:57 Yes 10 mg, 1 tab, PO, Daily, 30 tab, Substitution Allowed, TAB [facility] atorvastatin 20 mg oral tablet 2012-12-04 15:13:45 Yes 20 mg, 1 tab, PO, Daily, 30 tab, Substitution Allowed, TAB [facility] Diovan 320 mg oral tablet 2012-12-04 15:13:33 Yes 320 mg, 1 tab, PO, Daily, 90 tab, Substitution Allowed, TAB [facility] lansoprazole 30 mg oral delayed release capsule 2012-12-04 15:13 :17 Yes 30 mg, 1 cap, PO, Daily, 30 cap, Substitution Allowed [facility] Acetaminophen With Codeine (Tylenol With Codeine #3 Ta blet) 1 Each TABLET Acetaminophen With Codeine (Tylenol With Codeine #3 Tablet) 1 Each TABLET Yes 300 as needed for Mild Pain (1-3) Or Fever>1 00.8 [facility] Amlodipine/Valsartan Amlodipine/Valsartan Yes Daily [facility] Atorvastatin Calcium (Lipitor) 20 Mg TABLET Atorvastat in Calcium (Lipitor) 20 Mg TABLET Yes 20 Daily [facility] Yes 10 Daily [facility] Gluc 2KCL/Chondr/Darrel Hy/Hy Ac (Glucosamine & Chondroi tin Cap) 1 Each CAPSULE Gluc 2KCL/Chondr/Darrel Hy/Hy Ac (Glucosamine & Chondroitin Cap) 1 Each CAPSULE Yes [facility] Meclizine Hcl Meclizine Hcl Yes 25 As Needed [facility] Meloxicam Meloxicam Yes 15 Daily [facility] Metformin Hcl (Metformin Hcl Er) 500 Mg TAB.ER.24 Metf ormin Hcl (Metformin Hcl Er) 500 Mg TAB.ER.24 Yes 1 Bedtime [facility] Nebivolol Hcl (Bystolic) 10 Mg TABLET Nebivolol Hcl (Bystolic) 10 M g TABLET Yes 20 Daily [facility] Pantoprazole Sodium (Protonix) 40 Mg TABLET. Pantopr azole Sodium (Protonix) 40 Mg TABLET. Yes 40 Daily [facility] Triamterene/Hydrochlorothiazid (Triamterene-Hctz 37.5- 25 Mg Cp) 1 Each CAPSULE Triamterene/Hydrochlorothiazid (Triamterene-Hctz 37.5-25 Mg Cp) 1 Each CAPSULE Yes 37.5 Daily [facility] Vitamin B Complex & Vit C No.4 (Super B Complex) 150 M g TABLET Vitamin B Complex & Vit C No.4 (Super B Complex) 150 Mg TABLET Yes [facility] Levofloxacin (Levaquin) 500 Mg TABLET Levofloxacin (Levaquin) 50 0 Mg TABLET 2019-03-17 00:00:00 No 500 Daily [facility] Amlodipine Besylate Amlodipine Besylate 2019-02-16 00:00:00 No 1 Daily [facility] Amlodipine-Valsartan Amlodipine-Valsartan 2019-02-16 00:00:00 No Daily [facility] Levofloxacin (Levaquin) 500 Mg TABLET Levofloxacin (Levaquin) 50 0 Mg TABLET 2018-09-17 00:00:00 No 500 Daily [facility] Meclizine Hcl Meclizine Hcl 2018-09-17 00:00:00 No 25 As Needed [facility] Cephalexin Cephalexin 2018-09-01 00:00:00 No 500 Thr ee Times A Day [facility] Insulin Detemir (Levemir) 100 Unit/1 Ml VIAL Insulin D etemir (Levemir) 100 Unit/1 Ml VIAL 2018-09-01 00:00:00 No 5 Bedtime [facility] Amlodipine/Valsartan (Exforge 5-320 Mg Tablet) 1 Each TABLET Amlodipine/Valsartan (Exforge 5-320 Mg Tablet) 1 Each TABLET 2018-08-13 00:00:00 No [facility] Aspirin Aspirin 2018-08-13 00:00:00 No 81 Daily [facility] Farxiga Farxiga 2018-08-13 00:00:00 No [facility] Meclizine Hcl Meclizine Hcl 2018-08-13 00:00:00 No 25 Three Times A Day as needed for Dizziness [facility] Metformin Hcl Metformin Hcl 2018-08-13 00:00:00 No 500 Bedtime [facility] Pantoprazole Sodium (Protonix) 40 Mg TABLET. Pantopr azole Sodium (Protonix) 40 Mg TABLET. 2018-08-13 00:00:00 No 40 Daily [facility] Triamterene/Hydrochlorothiazid (Triamterene-Hctz 37.5- 25 Mg Cp) 1 Each CAPSULE Triamterene/Hydrochlorothiazid (Triamterene-Hctz 37.5-25 Mg Cp) 1 Each CAPSULE 2018-08-13 00:00:00 No 1 Daily [facility] Amlodipine Besylate Amlodipine Besylate 2017-09-01 00:00:00 No 5 Daily [facility] Dapagliflozin Dapagliflozin 2017-09-01 00:00:00 No 10 Daily [facility] Levofloxacin (Levaquin) 500 Mg TABLET Levofloxacin (Levaquin) 50 0 Mg TABLET 2017-09-01 00:00:00 No 500 Daily [facility] Invokana Invokana 2017-07-08 00:00:00 No 300 Daily [facility] Lansoprazole Lansoprazole 2017-07-08 00:00:00 No 30 Daily [facility] Valsartan (Diovan) 80 Mg TAB Valsartan (Diovan) 80 Mg TAB 2017-07-08 00:00:00 No 320 Daily [facility] Furosemide (Lasix) 40 Mg TABLET Furosemide (Lasix) 40 Mg TABLET 2015-07-06 00:00:00 No 40 Daily as needed [facility] Vital Signs Vital Name Observation Time Observation Value Comments Source Body Temperature 2019-11-12 12:07:00 97.9 [degF] [facility] Weight 2019-11-10 01:20:00 361.56 [lb_av] [facility] BMI (Body Mass Index) 2019-11-10 01:20:00 51.9 kg/m2 [facility] Weight 2019-11-02 19:37:00 375 [lb_av] [facility] BMI (Body Mass Index) 2019-11-02 19:37:00 52.3 kg/m2 [facility] Weight 2019-08-11 09:51:00 400 [lb_av] [facility] BMI (Body Mass Index) 2019-08-11 09:51:00 55.8 kg/m2 [facility] Body Temperature 2019-03-19 06:26:00 98.5 [degF] [facility] Systolic (mm Hg) 2018-03-19 16:30:00 [facility] [place] Diastolic (mm Hg) 2018-03-19 16:30:00 [facility] Systolic (mm Hg) 2018-03-19 15:45:00 [facility] Diastolic (mm Hg) 2018-03-19 15:45:00 [facility] Systolic (mm Hg) 2018-03-19 15:30:00 M[facility]al [facility] [place] Diastolic (mm Hg) 2018-03-19 15:30:00 [facility] Respitory Rate 2018-03-19 15:30:00 [facility] Respitory Rate 2018-03-19 15:15:00 [facility] Respitory Rate 2018-03-19 15:00:00 [facility] [place] Heart Rate 2018-03-19 14:51:00 [facility] Heart Rate 2018-03-19 12:57:00 [facility] Temperature Oral (F) 2018-03-13 22:00:00 97.9 F [facility] Heart Rate 2018-03-13 22:00:00 [facility] [place] Height 2018-03-13 21:50:00 182.88 cm [facility] Weight 2018-03-13 21:50:00 [facility] BMI Calculated 2018-03-13 21:50:00 [facility] Systolic (mm Hg) 2012-12-11 19:38:00 [facility] Diastolic (mm Hg) 2012-12-11 19:38:00 [facility] Diastolic (mm Hg) 2012-12-11 19:15:00 [facility] Systolic (mm Hg) 2012-12-11 19:15:00 [facility] [place] Respitory Rate 2012-12-11 19:15:00 [facility] [place] Systolic (mm Hg) 2012-12-11 19:00:00 [facility] Diastolic (mm Hg) 2012-12-11 19:00:00 [facility] Respitory Rate 2012-12-11 19:00:00 [facility] [place] Respitory Rate 2012-12-11 18:45:00 [facility] Heart Rate 2012-12-11 15:30:00 [facility] [place] Temperature Oral (F) 2012-12-09 18:48:00 98.3 F [facility] Heart Rate 2012-12-09 18:48:00 [facility] [place] Height 2012-12-09 18:31:00 177.8 cm [facility] [place] Weight 2012-12-09 18:31:00 [facility] [place] Diastolic (mm Hg) 2012-12-04 19:00:00 [facility] Systolic (mm Hg) 2012-12-04 19:00:00 [facility] Respitory Rate 2012-12-04 18:45:00 [facility] Systolic (mm Hg) 2012-12-04 18:45:00 [facility] Diastolic (mm Hg) 2012-12-04 18:45:00 [facility] [place] Systolic (mm Hg) 2012-12-04 18:30:00 [facility] [place] Diastolic (mm Hg) 2012-12-04 18:30:00 [facility] Respitory Rate 2012-12-04 18:30:00 [facility] Respitory Rate 2012-12-04 18:15:00 [facility] Heart Rate 2012-12-04 14:51:00 [facility] [place] Temperature Oral (F) 2012-12-04 14:51:00 98.3 F [facility] Weight 2012-12-04 14:48:00 [facility] [place] Height 2012-12-04 14:48:00 177.8 cm [facility] [place] Procedures Procedure Date / Time Performed Performing Clinician [facility] e Ultrasound, renal 2019-11-08 00:00:00 [facility] CT of abdomen and pelvis without contrast 2019-11-04 00:00:00 [facility] CT of abdomen and pelvis without contrast 2019-08-11 00:00:00 [facility] X-ray of chest, single view 2019-08-11 00:00:00 [facility] CT of abdomen and pelvis without contrast 2019-04-01 00:00:00 [facility] CYSTOURETERO W/LITHOTRIPSY 2019-03-19 00:00:00 C HI [facility] DILATION OF RIGHT URETER WITH INTRALUMINAL DEVICE, ENDO 00:00:00 [facility] DILATION OF LEFT URETER, ENDO 2019-02-17 00:00:00 [facility] FLUOROSCOPY OF KIDNEY, URETER & BLADDER USING L OSM CO NTRAST 2019-02-17 00:00:00 [facility] CT of abdomen and pelvis without contrast 2019-02-16 00:00:00 [facility] Injection procedure for shoulder arthrog bakari or enhanced CT/MRI shoulder arthrography 2018-02-12 16:39:22 [facility] Cystourethroscopy, with insertion of ind welling ureteral stent (eg, [place] or double-J type) 2012-12-11 05:00:00 [facility] Cystourethroscopy, with ureteroscopy and /or pyeloscopy; with removal or manipulation of calculus (ureteral catheterization is included) 2012-12-11 05:00:00 [facility] Transurethral Removal of Obstruction from Ureter and R enal Pelvis 2012-12-11 05:00:00 [facility] Ureteral Catheterization 2012-12-11 05:00:00 [facility] Shoulder joint operations<sup>1</sup> 2010-03-10 00:00:00 [facility] 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 2007-03-10 00:00:00 [facility] Stent placement [facility] Ablation [facility] Cardiac catheterization [facility] Cholecystectomy [facility] 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 <sup>1</sup> [facility] Lithotripsy [facility] Shoulder joint operations [facility] [place] 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 [facility] Ablation [facility] Arthroplasty of knee [facility] Cardiac catheterization [facility] Cholecystectomy [facility] 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<sup>2</sup> [facility] Lithotripsy [facility] Stent placement [facility] Plan of Care Planned Activity Planned Date Details Comments Source Future Scheduled Test 2019-10-09 00:00:00 INFLUENZA VACCINE [code = INFLUENZA VACCINE] [facility] Scheduled Test 2013 00:00:00 COLONOSCOPY SCREEN ING [code = COLONOSCOPY SCREENING] [facility] Scheduled Test 2013 00:00:00 SHINGLES VACCINES (#1) [code = SHINGLES VACCINES (#1)] [facility] Scheduled Test 1973 00:00:00 DIABETIC FOOT EXAM [code = DIABETIC FOOT EXAM] [facility] Scheduled Test 1973 00:00:00 URINE MICROALBUMIN [code = URINE MICROALBUMIN] [facility] Scheduled Test 1963 00:00:00 DIABETIC RETINAL E YE EXAM [code = DIABETIC RETINAL EYE EXAM] [facility] Instructions Diabetes and Diet [facility] Instructions Urinary Tract Infection - Men [facility] Encounters Start Date/Time End Date/Time Encounter Type Admission Type Attendi [facility] Care Department Encounter ID Source 2019-11-02 19:20:00 2019-11-02 21:32:00 Departed Emergency Room DALJIT CHRYSTAL [facility] [id number] [facility] 2019-08-11 09:32:00 2019-08-11 14:20:00 Departed Emergency Room 1 PIPER NATHAN [facility] [id number] [facility] 2019-08-05 14:43:00 2019-08-05 14:43:00 Registered Clinic 3 CARLOS COX [facility] [id number] [facility] 2019-04-01 09:21:00 2019-04-01 13:29:00 Departed Emergency Room 1 JIMMY EPPSCALVIN [facility] [id number] [facility] 2019-03-20 18:13:00 2019-03-20 21:51:00 Departed Emergency Room 1 CHONG NAVARRO [facility] [id number] [facility] 2019-03-19 04:16:00 2019-03-19 04:16:00 Registered Surgical Day Care [facility] [id number] [facility] Patients [facility] 2019-02-16 13:33:00 2019-02-18 11:05:00 Discharged Inpatient 1 DOMENIC CHAPMAN [facility] [id number] [facility] Sarah kes - Patients [facility] 2019-02-15 09:11:00 2019-02-15 09:11:00 Registered Clinic 3 [facility] [id number] [facility] Sarah s Patients [facility] 2018-11-27 10:33:00 2018-11-27 10:33:00 Registered Clinic 3 [facility] [id number] [facility]. Sarah [facility] 2018-09-18 08:22:00 2018-09-18 08:22:00 Registered Surgical Day Care [facility] [id number] [facility] 2018-09-01 22:28:00 2018-09-03 13:50:00 Discharged Inpatient 1 LIVAN CASTANEDA [facility] [id number] [facility] 2018-09-01 07:43:00 2018-09-01 07:43:00 Registered Surgical Day Car e 3 [facility] [id number] [facility] 2018-08-18 05:00:00 2018-08-18 05:00:00 Registered Surgical Day Car e 3 [facility] [id number] [facility]. Chelsey [facility] 2018-07-24 00:25:00 2018-07-24 00:50:00 Departed Emergency Room [facility] [id number] [facility]. [facility] 2018-05-07 08:00:00 2018-06-05 23:59:00 Outpatient Oliverio Wyatt [id number] 2018-04-07 15:40:00 2018-05-06 23:59:00 Outpatient Oliverio Wyattanastacio Soto [id number] 2018-03-19 06:00:00 2018-03-19 10:46:00 Outpatient Oswald Wyatt MH MH [id number] 2018-02-12 09:10:00 2018-02-12 23:59:00 Outpatient Adrián Wyatt MHOIH MHOIH [id number] 2018-01-06 05:04:00 2018-01-06 05:04:00 Registered Surgical Day Car CARLOS Jane [facility] [id number] [facility] 2017-07-09 12:16:00 2017-07-10 12:02:00 Discharged Inpatient ER GISELA CARABALLO [facility] [id number] [facility] 2015-06-16 12:20:00 2015-06-16 23:59:00 Outpatient Bjorn Guerrero [facility] [id number] Results Test Description Test Time Test Comments Results Result Comments Source Capillary blood glucose measurement by glucometer (mas s/volume) 2019-11-12 11:47:00 Test Item Bedside Glucose (test code = 22287-0) 327 70-120 Meter ID: [id number] [facility] or plasma sodium measurement (moles/volume)2019-11-12 07:35:00* Test Item Value Reference Range Interpretation Comments Sodium Level (test code = 2951-2) 141 136-145 [facility] plasma potassium measurement (moles/volume)2019-11-12 07:35:00* Test Item Value Reference Range Interpretation Comments Potassium Level (test code = 2823-3) 3.3 3.5-5.1 [facility] plasma chloride measurement (moles/volume)2019-11-12 07:35:00* Test Item Value Reference Range Interpretation Comments Chloride Level (test code = 2075-0) 97 98-107 [facility] or plasma carbon dioxide, total measurement (moles/volume)2019-11-12 07:35:00* Test Item Value Reference Range Interpretation Comments Carbon Dioxide Level (test code = 2028-9) 28 22-29 [facility] or plasma anion [id number] 07:35:00* Test Item Value Reference Range Interpretation Comments Anion Gap (test code = 82944-1) 19.3 8-16 [facility] or plasma urea nitrogen measurement (mass/volume)2019-11-12 07:35:00* Test Item Value Reference Range Interpretation Comments Blood Urea Nitrogen (test code = 3094-0) 55 7-26 [facility] or plasma creatinine measurement (mass/volume)2019-11-12 07:35:00* Test Item Value Reference Range Interpretation Comments Creatinine (test code = 2160-0) 2.72 0.72-1.25 [facility] or plasma urea nitrogen/creatinine mass [id number] 07:35:00* Test Item Value Reference Range Interpretation Comments BUN/Creatinine Ratio (test code = 3097-3) 20 6-25 [facility] filtration rate (GFR) [id number] 07:35:00* Test Item Value Reference Range Interpretation Comments Estimat Glomerular Filtration Rate (test code = 859555270) 24 >60 Ranges were taken from the National Kidney Disease Education Program and the [facility] literature.Reference ranges:60 or greater: Yoackc93-41 ( for 3 consecutive months): Chronic kidney disease 15 or less: Kidney failureMemorial Hermann Surgical Hospital KingwoodGlucose [id number] 07:35:00* Test Item Value Reference Range Interpretation Comments Glucose Level (test code = SQU9997) 195 74-118 [facility] or plasma calcium measurement (mass/volume)2019-11-12 07:35:00* Test Item Value Reference Range Interpretation Comments Calcium Level (test code = 62524-2) 8.2 8.4-10.2 [facility] or plasma total bilirubin measurement (mass/volume)2019-11-12 07:35:00* Test Item Value Reference Range Interpretation Comments Total Bilirubin (test code = 1975-2) 0.4 0.2-1.2 [facility]woodFluoroscopic procedure less than one hour [id number] 07:35:00* Test Item Value Reference Range Interpretation Comments Aspartate Amino Transf (AST/SGOT) (test code = Aspartate Amino Transf (AST/SGOT)) 36 5-34 [facility] or plasma alanine aminotransferase measurement (enzymatic activity/volume)2019-11-12 07:35:00* Test Item Value Reference Range Interpretation Comments Alanine Aminotransferase (ALT/SGPT) (test code = 1742-6) 69 0-55 [facility] or plasma protein measurement (mass/volume)2019-11-12 07:35:00* Test Item Value Reference Range Interpretation Comments Total Protein (test code = 2885-2) 7.0 6.5-8.1 [facility] or plasma albumin measurement (mass/volume)2019-11-12 07:35:00* Test Item Value Reference Range Interpretation Comments Albumin (test code = 1751-7) 3.9 3.5-5.0 [facility]wood[facility] globulin measurement (mass/volume) 2019-11-12 07:35:00* Test Item Value Reference Range Interpretation Comments Globulin (test code = 58558-0) 3.1 2.3-3.5 [facility] or plasma albumin/globulin mass [id number] 07:35:00* Test Item Value Reference Range Interpretation Comments Albumin/Globulin Ratio (test code = 1759-0) 1.3 0.8-2.0 [facility] or plasma alkaline phosphatase measurement (enzymatic activity/volume)2019-11-12 07:35:00* Test Item Value Reference Range Interpretation Comments Alkaline Phosphatase (test code = 6768-6) 75 40-150 [facility] nuclear antibody titer by [id number] 05:33:00* Test Item Value Reference Range Interpretation Comments Anti-Nuclear Antibody Screen (test code = 5048-4) Negative . Negative <1:80 Borderline 1:80 Positive > 1:80Performed at: [facility] [id number] 3Lab Director: Abilio Lai MD, Phone: [phone] [facility]Allenerum or plasma complement C3 measurement (mass/volume)2019-11-10 05:33:00 * Test Item Value Reference Range Interpretation Comments Complement C3 (test code = 4485-9) 232 82-167 Performed at: [facility] [address] [address] [id number] Director: Abilio Lai MD, Phone: [phone] [facility] KingwoodUrine color bixvhnlzumgyw6734-82-88 12:20:00* Test Item Value Reference Range Interpretation Comments Urine Color (test code = 5778-6) YELLOW YELLOW [facility] KingwoodUrine qpsszir8285-28-39 12:20:00* Test Item Value Reference Range Interpretation Comments Urine Clarity (test code = 38645-7) CLOUDY CLEAR [facility]Allenpecific gravity of Urine by Test strip 2019-11-09 12:20:00* Test Item Value Reference Range Interpretation Comments Urine Specific [place] (test code = 5811-5) 1.015 1.010-1.02 5 [facility] KingwoodUrine pH measurement by automated test dbhlj1707-09-91 12:20:00* Test Item Value Reference Range Interpretation Comments Urine pH (test code = 28747-8) 6.5 5-7 [facility] KingwoodUrine leukocyte esterase detection by henecfxr2107-13-67 12:20:00* Test Item Value Reference Range Interpretation Comments Urine Leukocyte Esterase (test code = 5799-2) MODERATE NEGATIVE [facility] KingwoodUrine nitrite yrjqmzkcd3280-09-96 12:20:00* Test Item Value Reference Range Interpretation Comments Urine Nitrite (test code = 48551-9) NEGATIVE NEGATIVE [facility] KingwoodUrine protein measurement by test strip (mass/volume)2019-11-09 12:20:00* Test Item Value Reference Range Interpretation Comments Urine Protein (test code = 5804-0) 2+ NEGATIVE [facility] KingwoodUrine glucose fcfulxgxh6073-44-33 12:20:00* Test Item Value Reference Range Interpretation Comments Urine Glucose (UA) (test code = 2349-9) 2+ NEGATIVE [facility] KingwoodUrine ketones detection by automated test kbvuf8648-17-53 12:20:00* Test Item Value Reference Range Interpretation Comments Urine Ketones (test code = 02995-4) NEGATIVE NEGATIVE [facility] KingwoodUrine urobilinogen measurement by test strip (mass/volume)2019-11-09 12:20:00* Test Item Value Reference Range Interpretation Comments Urine Urobilinogen (test code = 55838-4) 0.2 0.2-1 [facility] KingwoodUrine total bilirubin measurement (mass/volume)2019-11-09 12:20:00* Test Item Value Reference Range Interpretation Comments Urine Bilirubin (test code = 1978-6) NEGATIVE NEGATIVE [facility] KingwoodUrine erythrocytes zhcyzrcjx0874-65-27 12:20:00* Test Item Value Reference Range Interpretation Comments Urine Blood (test code = 74971-8) MODERATE NEGATIVE [facility] KingwoodAutomated urine sediment leukocyte count by microscopy (number/high power field)2019-11-09 12:20:00* Test Item Value Reference Range Interpretation Comments Urine WBC (test code = 5821-4) >50 0-5 [facility] KingwoodErythrocytes detection in urine sediment by light xnrkkingbg3137-60-14 12:20:00* Test Item Value Reference Range Interpretation Comments Urine RBC (test code = 87081-0) >50 0-5 [facility] KingwoodBacteria detection in urine sediment by light elazmfktcd7407-12-97 12:20:00* Test Item Value Reference Range Interpretation Comments Urine Bacteria (test code = 17774-9) MODERATE NONE [facility] KingwoodEpithelial cells detection in urine sediment by light rfxpksldhu8952-92-63 12:20:00* Test Item Value Reference Range Interpretation Comments Urine Epithelial Cells (test code = 49280-0) NONE NONE [facility] McAllenerum proteinase 3 antibody assay by immunoassay (units/volume)2019-11-09 11:05:00* Test Item Value Reference Range Interpretation Comments Anti-Proteinase 3 (c-ANCA) (test code = 84265-7) <3.5 0.0-3 .5 Performed at: [facility] [place] [address] [place], [place] [id number] Crnp: Maxwell Zelaya MD, Phone: [phone] [facility] McAllenerum myeloperoxidase antibody assay by immunoassay (units/volume) 2019-11-09 11:05:00* Test Item Value Reference Range Interpretation Comments Myeloperoxidase Antibody (test code = 26524-9) <9.0 0.0-9.0 [facility] RE[facility] RETROPERITONEAL LRBV8349-84-46 11:30:00 [facility] [address] [place] [address] Patient Name: ZAYNAB FLORES MR #: [id number] : 1965 Age/Sex: 54/M Req #: [id number] Adm Physician: LIVAN CASTANEDA MD Ordered by: RAJINDER BENDER, LINDA BENDER Report #: [id number] Location: MED/SURG3 Room/Bed: [facility] Procedure: [id number] US/US KUSUM L RETROPERITONEAL COMP Exam Date: 11/08/19 Exam Time : 1001 REPORT STATUS: Signed Kenny al ultrasound. History: Kidney stones. Comparison: CT dated 11/04/19. Discussion: Transverse and longitudinal images of the kidneys were obta ined demonstrating normal renal sizes and echogenicities. No suspicious renal mass. There is a 4 mm stone at the inferior pole the right kidney. Recently no yue stones within the left kidney are not well-visualized by this examination. Mild bilateral pelviectasis is noted, similar to CT. The right kidney measures 11.1 cm and the left kidney measures 12.2 cm in length. The urinary bladder is decompressed. There is no evidence of free fluid. IMPRESSION: 1. There is a 4 mm stone at the inferior pole the right kidney. Previously id entified left renal calculi are not well visualized. 2. Bilateral pelviectasis , left greater than right, similar to prior CT. Signed by: Juan Luis Mann MD on 11/08/2019 11:33 AM Dictated By: JUAN LUIS MANN MD Electronically Penny d By: JUAN LUIS MANN MD on 11/08/19 1133 Transcribed By: MICHEAL on 11/08/19 113 3 COPY TO: LINDA CALVILLO Serum or plasma intact pararthyroid hormone measurement (mass/volume)2019-11-08 10:35:00* Test Item Value Reference Range Interpretation Comments Parathyroid Hormone (test code = 2731-8) 13 15-65 [facility] McAllenerum or plasma calcium measurement (mass/volume)2019-11-08 10:35:00* Test Item Value Reference Range Interpretation Comments Calcium (Send out) (test code = 17779-9) 9.0 8.7-10.2 [facility] KingwoodFluoroscopic procedure less than one hour nektkstg5595-27-29 10:35:00* Test Item Value Reference Range Interpretation Comments Parathyroid Hormone Interpretation (test code = Parathyroid Hormone Interpretation) Comment . Interpretation Intact PTH Calcium (pg/mL) (mg/dL)Normal 15 - 65 8.6 - 10.2Pr imary Hyperparathyroidism >65 >10.2Secondary Hyperparathyroidism >65 <10.2Non-Parathyroid Hypercalcemia <65 >10.2Hypoparathyroidism <15 < 8.6Non- Parathyroid Hypocalcemia 15 - 65 < 8.6Performed at: [facility] - [facility] [address] [id number] Director: Abilio Lai MD, Phone: [phone] at: - [facility] [address] [id number] Director: Maxwell Zelaya MD, Phone: [phone] Texas Health System McAllenerum or plasma uric acid measurement (mass/volume)2019-11-08 06:13:00* Test Item Value Reference Range Interpretation Comments Uric Acid (test code = 3084-1) 12.7 4.8-8.0 [facility] KingwoodBlood leukocytes automated count (number/volume)2019-11-06 14:42:00* Test Item Value Reference Range Interpretation Comments White Blood Count (test code = 6690-2) 7.16 4.8-10.8 [facility] KingwoodBlood erythrocytes automated count (number/volume)2019-11-06 14:42:00* Test Item Value Reference Range Interpretation Comments Red Blood Count (test code = 789-8) 4.94 4.3-5.7 [facility] KingwoodBlood hemoglobin measurement (moles/volume)2019-11-06 14:42:00* Test Item Value Reference Range Interpretation Comments Hemoglobin (test code = 21930-0) 12.5 14.0-18.0 [facility] KingwoodAutomated blood hematocrit (volume fraction)2019-11-06 14:42:00* Test Item Value Reference Range Interpretation Comments Hematocrit (test code = 4544-3) 41.1 38.2-49.6 [facility] KingwoodAutomated erythrocyte mean corpuscular immbuj0320-32-19 14:42:00* Test Item Value Reference Range Interpretation Comments Mean Corpuscular Volume (test code = 787-2) 83.2 81-99 [facility] KingwoodAutomated erythrocyte mean corpuscular hemoglobin (mass per erythrocyte)2019-11-06 14:42:00* Test Item Value Reference Range Interpretation Comments Mean Corpuscular Hemoglobin (test code = 785-6) 25.3 28-32 [facility] KingwoodAutomated erythrocyte mean corpuscular hemoglobin concentration measurement (mass/volume)2019-11-06 14:42:00* Test Item Value Reference Range Interpretation Comments Mean Corpuscular Hemoglobin Concent (test code = 786-4) 30.4 31-35 [facility] KingwoodRDW GilPg-Mwi1937-56-29 14:42:00* Test Item Value Reference Range Interpretation Comments Red Cell Distribution Width (test code = 85438-2) 15.6 11.7 -14.4 [facility] KingwoodAutomated blood platelet count (count/volume)2019-11-06 14:42:00* Test Item Value Reference Range Interpretation Comments Platelet Count (test code = 777-3) 222 140-360 [facility] KingwoodAutomated blood segmented neutrophil count as percentage of total xzyfhcttbh1792-19-14 14:42:00* Test Item Value Reference Range Interpretation Comments Neutrophils (%) (Auto) (test code = 65258-1) 53.7 38.7-80.0 [facility] KingwoodAutomated blood lymphocyte count as percentage ot total qgecxpyytk4466-18-41 14:42:00* Test Item Value Reference Range Interpretation Comments Lymphocytes (%) (Auto) (test code = 736-9) 21.4 18.0-39.1 [facility] KingwoodAutomated blood monocyte count as percentage of total sjqhtvuhtb3523-15-54 14:42:00* Test Item Value Reference Range Interpretation Comments Monocytes (%) (Auto) (test code = 5905-5) 18.9 4.4-11.3 [facility] KingwoodAutomated blood eosinophil count as percentage of total irwkikzqex0780-84-34 14:42:00* Test Item Value Reference Range Interpretation Comments Eosinophils (%) (Auto) (test code = 713-8) 5.3 0.0-6.0 [facility] KingwoodAutomated blood basophil count as percentage of total hmhkgpgpfb2793-30-83 14:42:00* Test Item Value Reference Range Interpretation Comments Basophils (%) (Auto) (test code = 706-2) 0.3 0.0-1.0 [facility] KingwoodFluoroscopic procedure less than one hour gyqcifvx3328-94-38 14:42:00* Test Item Value Reference Range Interpretation Comments IM GRANULOCYTES % (test code = IM GRANULOCYTES %) 0.4 0.0- 1.0 [facility] KingwoodAutomated blood neutrophil count 2019-11-06 14:42:00* Test Item Value Reference Range Interpretation Comments Neutrophils # (Auto) (test code = 751-8) 3.9 2.1-6.9 [facility] KingwoodBlood lymphocytes count (number/volume) 2019-11-06 14:42:00* Test Item Value Reference Range Interpretation Comments Lymphocytes # (Auto) (test code = 85254-5) 1.5 1.0-3.2 [facility] KingwoodBlood monocytes automated count (number/volume)2019-11-06 14:42:00* Test Item Value Reference Range Interpretation Comments Monocytes # (Auto) (test code = 742-7) 1.4 0.2-0.8 [facility] KingwoodAutomated blood eosinophil count 2019-11-06 14:42:00* Test Item Value Reference Range Interpretation Comments Eosinophils # (Auto) (test code = 711-2) 0.4 0.0-0.4 [facility] KingwoodAutomated blood basophil count (count/volume)2019-11-06 14:42:00* Test Item Value Reference Range Interpretation Comments Basophils # (Auto) (test code = 704-7) 0.0 0.0-0.1 [facility] KingwoodFluoroscopic procedure less than one hour phdlhkrn4344-49-20 14:42:00* Test Item Value Reference Range Interpretation Comments Absolute Immature Granulocyte (auto (chel t code = Absolute Immature Granulocyte (auto) 0.03 0-0.1 [facility] or plasma magnesium measurement (mass/volume)2019-11-06 14:42:00* Test Item Value Reference Range Interpretation Comments Magnesium Level (test code = 16265-8) 1.6 1.3-2.1 [facility]enerum or plasma creatine kinase measurement (enzymatic activity/volume)2019-11-05 05:52:00* Test Item Value Reference Range Interpretation Comments Creatine Kinase (test code = 2157-6) 113 30-200 [facility] McAllenerum or plasma creatine kinase MB measurement (mass/volume)2019-11-05 05:52:00* Test Item Value Reference Range Interpretation Comments Creatine Kinase MB (test code = 61844-9) 0.70 0-5.0 [facility] KingwoodTroponin I measurement by highly sensitive enzyme ixjnyodcstc4544-63-11 05:52:00* Test Item Value Reference Range Interpretation Comments Troponin I (test code = 04017-8) 0.011 0-0.300 [facility] KingwoodFluoroscopic procedure less than one hour jpjkzdrh4262-22-74 11:10:00* Test Item Value Reference Range Interpretation Comments Coronavirus (PCR) (test code = Coronavirus (PCR)) NOT DETECTED NOTD ETECTED Hologic [employer]ptima SARS-CoV-2 assay is a nucleic amplification test intended for the qualitative detection of RNA from SARS-CoV-2 from nasopharyngeal (CURING OVEN TENDER) specimens. It is used under Emergency Use Authorization (EUA) by FDA.A positive result is indicative of the presence of SARS-CoV-2 RNA. Clinical correlation with patient history and other diagnostic information is necessary to determine patient infe ction status.A negative (Not Detected) result does not preclude SARS-CoV-2 infec tion. Clinical Correlation with patient history and other diagnostic information should be used in patient management decisions.Invalid: Unable to generate a va lid result on this specimen. Please submit a new specimen for reprat testing oc clinically indicated.Tesing performed by:[facility] [address] [place] [id number], Priya Chen MD, PhD [facility] KingwoodFluoroscopic procedure less than one hour ffyiolec0925-89-26 10:43:00* Test Item Value Reference Range Interpretation Comments Lactic Acid Level (test code = Lactic Acid Level) 1.1 0.5- 2.0 [facility] KingwoodCT ABDOMEN/PELVIS ME2765-50-80 10:28:00 [place] [address] Patient Name: ZAYNAB FLORES MR #: [id number] : 1965 Age/Sex: 54/M Req #: [id number] Adm Physician: LIVAN CASTANEDA MD Ordered by: CHARI EPPS DO Report #: [id number] Location: MED/SURG3 Room/Bed: [facility] Procedure: [id number] CT/CT AB DOMEN/PELVIS WO Exam Date: 11/04/19 Exam Time: 1002 REPORT STATUS: Signed EXAM: CT A bdomen and Pelvis WITHOUT intravenous contrast INDICATION: Abdominal pain COMPARISON: CT abdomen and pelvis of 08/11/2019 TECHNIQUE: Abdomen and pelvis were scanned utilizing a multidetector helical scanner from the lung ba se to the pubic symphysis without administration of IV contrast. Coronal and s agittal reformations were obtained. IV CONTRAST: None ORAL CONTRAST : Water COMPLICATIONS: None RADIATION DOSE: Total DLP: 1339 mGy*cm Dose modulation, iterative reconstruction, and/or weight based adjustment of the mA/kV was utilized to reduce the radiation dose to as low as reasonably achievable. FINDINGS: LOWER THORAX: Right middle lobe calc ified granuloma. No focal lung base consolidation. HEPATOBILIARY: No foca l liver lesion. Status post cholecystectomy. SPLEEN: No splenomegaly. PANCREAS: No focal masses or ductal dilatation. ADRENALS: No adrenal nodule s. KIDNEYS/URETERS: Unchanged 5 and 6 mm left lower pole nonobstructive renal calculi and 6 mm right lower pole renal calculus. No hydronephrosis or hydro ureter. No solid renal mass lesion. PELVIC ORGANS/BLADDER: Unremarkable. PERITONEUM / RETROPERITONEUM: No free air or fluid. LYMPH NODES: No lymphadeno torrie. VESSELS: Minimal atherosclerotic calcifications. No abdominal aortic an eurysm. GI TRACT: No distention or wall thickening. BONES AND SOFT TIS SUES: Unremarkable. IMPRESSION: No acute findings in the abdomen or pelv is. Stable bilateral nonobstructive renal calculi. Signed by: Melissa Quan MD on 11/04/2019 10:33 AM Dictated By: MELISSA QUAN MD Electronically S igned By: MELISSA QUAN MD on 11/04/19 1033 Transcribed By: MICHEAL on 11/04/19 10 33 COPY TO: CHARI EPPS DO Blood noouqcq6974-12-14 08:50:00 * Test Item Value Reference Range Interpretation Comments Blood Culture (test code = 97390905) NO GROWTH AFTER 5 DAYS, FINAL REPORT [facility] - ZRSZ6948-20-91 20:59:00 [facility] [address] [place] [address] Patient Name: ZAYNAB FLORES MR #: [id number] : 1965 Age/Sex: 54/M Req #: [id number] Adm Physician: Ordered by: CHRYSTAL BOCANEGRA Report #: [id number] Location: [facility] Room/Bed: Procedure: [id number] HOPD/CXR 2 VIEW - HOPD Exam Date: 11/02/19 Exam Time: 2019 REPORT STATUS: Signed EXAMINATION: CXR 2 VIEW - HOPD INDICATION: Fever. COMPARISON: None FINDING S: TUBES and LINES: None. LUNGS: Normal lung volumes. Lungs are c lear. No consolidations. PLEURA: No pleural effusion or pneumothorax. HEART AND MEDIASTINUM: The cardiomediastinal silhouette is unremarkable. BONES AND SOFT TISSUES: No acute osseous lesion. Soft tissues are unrem arkable. UPPER ABDOMEN: No free air under the diaphragm. IMPRESSIO N: No acute thoracic radiographic abnormality. Signed by: Clayton Moreno MD on 11/02/2019 9:00 PM Dictated By: CLAYTON MORENO MD Electronica lly Signed By: CLAYTON MORENO MD on 11/02/192099 Transcribed By: MICHEAL on 2099 COPY TO: CHRYSTAL BOCANEGRA CT ABDOMEN/PELVIS WO 2019-08-11 11:36:00 [place] [address] Patient Name: ZAYNAB FLORES #: [id number] : 1965 Age/Sex: 54/M Req #: [id number] [facility] Physician: Ordered by: NATHAN SALDAÑA MD Report #: [id number] Location: ER Room/Bed: Procedure: CT/CT ABDOM EN/PELVIS WO Exam Date: 08/11/19 Exam Time: 1030 REPORT STATUS: Signed EXAM: CT Abdo men and Pelvis WITHOUT intravenous contrast INDICATION: Abdominal pain, f lank pain COMPARISON: CT abdomen and pelvis of 04/01/2019 TECHNIQUE: Ab domen and pelvis were scanned utilizing a multidetector helical scanner from t he lung base to the pubic symphysis without administration of IV contrast. Cor onal and sagittal reformations were obtained. IV CONTRAST: None ORA L CONTRAST: None COMPLICATIONS: None RADIATION DOSE: Tot al DLP: 1500 mGy*cm Dose modulation, iterative reconstruction, and/or weig ht based adjustment of the mA/kV was utilized to reduce the radiation dose to as low as reasonably achievable. FINDINGS: LOWER THORAX: Normal. HEPATOBILIARY: No focal liver lesion. Status post cholecystectomy. SPLEEN: No splenomegaly. PANCREAS: No focal masses or ductal dilatation. ADREN ALS: No adrenal nodules. KIDNEYS/URETERS: Multiple left lower pole nonobstruct tone renal calculi measure up to 8 mm. Right lower pole nonobstructive renal ca lculus measures up to 8 mm. No hydronephrosis or hydroureter. The previously s een left mid ureteral calculus is no longer visualized. PELVIC ORGANS/BLADDE R: Unremarkable. PERITONEUM / RETROPERITONEUM: No free air or fluid. LYMP H NODES: No lymphadenopathy. VESSELS: Minimal scattered atherosclerotic calcif ications of the nonaneurysmal abdominal aorta. GI TRACT: No abnormal darya l thickening. No bowel obstruction. Normal appendix. BONES AND SOFT TISSUES : No acute osseous injury. No suspicious lytic or blastic lesions. Degenerativ e changes of the visualized spine, most notably at L3-4. IMPRESSION: Jose ateral nonobstructive renal calculi as above. No hydronephrosis or hydroureter . Previously seen left mid ureteral calculus is no longer visualized. Signed by: Melissa Quan MD on 08/11/2019 11:52 AM Dictated By: MELISSA QUAN MD 115 Transcribed By: BARRIE MIMS on 08/11/19 115 COPY TO: NATHAN SALDAÑA MD CHEST SINGLE (NOT PORTABLE)2019-08-11 11:32:00 [place] [address] Patient Name: ZAYNAB FLORES MR #: [id number] : 1965 Age/Sex: 54/M Req #: [id number] Adm Physician: Ordered by: NATHAN SALDAÑA MD Report #: [id number] Location: ER Room/Bed: Procedure: DX/CHEST SI NGLE (NOT PORTABLE) Exam Date: 08/11/19 Exam Time: 1 030 REPORT STATUS: Signed EXAMIN ATION: CHEST SINGLE (NOT PORTABLE) INDICATION: Abdominal pain COM PARISON: None FINDINGS: LINES/TUBES:None LUNGS:The lungs are well-inflated. No focal consolidation or pulmonary edema. PLEURA:No pleural effusion or pneumothorax. MEDIASTINUM:The cardiomediastinal silhouette ap pears normal in size and shape. BONES/SOFT TISSUES:No acute osseous injury. ABDOMEN:No free air under the diaphragm. IMPRESSION: No focal p neumonia or pulmonary edema. Signed by: Melissa Quan MD on 08/11/2019 11:32 AM Dictated By: MELISSA QUAN MD 31 COPY TO: MED SALDAÑA MD Blood leukocytes automated count (number/volume)2019-08-11 09:58:00* Test Item Value Reference Range Interpretation Comments White Blood Count (test code = 6690-2) 8.96 4.8-10.8 [facility]woodBlood erythrocytes automated count (number/volume)2019-08-11 09:58:00* Test Item Value Reference Range Interpretation Comments Red Blood Count (test code = 789-8) 5.25 4.3-5.7 [facility]woodBlood hemoglobin measurement (moles/volume)2019-08-11 09:58:00* Test Item Value Reference Range Interpretation Comments Hemoglobin (test code = 74635-9) 13.8 14.0-18.0 [facility] KingwoodAutomated blood hematocrit (volume fraction)2019-08-11 09:58:00* Test Item Value Reference Range Interpretation Comments Hematocrit (test code = 4544-3) 44.5 38.2-49.6 [facility] KingwoodAutomated erythrocyte mean corpuscular blhrbw1478-62-78 09:58:00* Test Item Value Reference Range Interpretation Comments Mean Corpuscular Volume (test code = 787-2) 84.8 81-99 [facility] KingwoodAutomated erythrocyte mean corpuscular hemoglobin (mass per erythrocyte)2019-08-11 09:58:00* Test Item Value Reference Range Interpretation Comments Mean Corpuscular Hemoglobin (test code = 785-6) 26.3 28-32 [facility] KingwoodAutomated erythrocyte mean corpuscular hemoglobin concentration measurement (mass/volume)2019-08-11 09:58:00* Test Item Value Reference Range Interpretation Comments Mean Corpuscular Hemoglobin Concent (test code = 786-4) 31.0 31-35 [facility] KingwoodRDW UcgKg-Ehg9928-61-03 09:58:00* Test Item Value Reference Range Interpretation Comments Red Cell Distribution Width (test code = 76418-4) 15.2 11.7 -14.4 [facility] KingwoodAutomated blood platelet count (count/volume)2019-08-11 09:58:00* Test Item Value Reference Range Interpretation Comments Platelet Count (test code = 777-3) 283 140-360 [facility] KingwoodAutomated blood segmented neutrophil count as percentage of total atjbzqaolj4934-10-94 09:58:00* Test Item Value Reference Range Interpretation Comments Neutrophils (%) (Auto) (test code = 70387-8) 65.7 38.7-80.0 [facility] KingwoodAutomated blood lymphocyte count as percentage ot total pcerimhame5226-45-53 09:58:00* Test Item Value Reference Range Interpretation Comments Lymphocytes (%) (Auto) (test code = 736-9) 22.0 18.0-39.1 [facility] KingwoodAutomated blood monocyte count as percentage of total bpnzhfigyq2639-20-29 09:58:00* Test Item Value Reference Range Interpretation Comments Monocytes (%) (Auto) (test code = 5905-5) 8.1 4.4-11.3 [facility] KingwoodAutour community hospitaled blood eosinophil count as percentage of total feblkvycdk9814-29-25 09:58:00* Test Item Value Reference Range Interpretation Comments Eosinophils (%) (Auto) (test code = 713-8) 3.6 0.0-6.0 [facility] KingwoodAutomated blood basophil count as percentage of total iyspvgovdn8573-81-95 09:58:00* Test Item Value Reference Range Interpretation Comments Basophils (%) (Auto) (test code = 706-2) 0.3 0.0-1.0 [facility] KingwoodFluoroscopic procedure less than one hour yovoxobi3870-41-41 09:58:00* Test Item Value Reference Range Interpretation Comments IM GRANULOCYTES % (test code = IM GRANULOCYTES %) 0.3 0.0- 1.0 [facility] KingwoodAutomated blood neutrophil count 2019-08-11 09:58:00* Test Item Value Reference Range Interpretation Comments Neutrophils # (Auto) (test code = 751-8) 5.9 2.1-6.9 [facility]woodBlood lymphocytes count (number/volume) 2019-08-11 09:58:00* Test Item Value Reference Range Interpretation Comments Lymphocytes # (Auto) (test code = 90806-9) 2.0 1.0-3.2 [facility] KingwoodBlood monocytes automated count (number/volume)2019-08-11 09:58:00* Test Item Value Reference Range Interpretation Comments Monocytes # (Auto) (test code = 742-7) 0.7 0.2-0.8 [facility] KingwoodAutomated blood eosinophil count 2019-08-11 09:58:00* Test Item Value Reference Range Interpretation Comments Eosinophils # (Auto) (test code = 711-2) 0.3 0.0-0.4 [facility] KingwoodAutomated blood basophil count (count/volume)2019-08-11 09:58:00* Test Item Value Reference Range Interpretation Comments Basophils # (Auto) (test code = 704-7) 0.0 0.0-0.1 [facility] KingwoodFluoroscopic procedure less than one hour swynbfjx4176-28-15 09:58:00* Test Item Value Reference Range Interpretation Comments Absolute Immature Granulocyte (auto (chel t code = Absolute Immature Granulocyte (auto) 0.03 0-0.1 [facility] KingwoodProthrombin time (PT) in platelet poor plasma by coagulation xmaym3663-30-89 09:58:00* Test Item Value Reference Range Interpretation Comments Prothrombin Time (test code = 5902-2) 12.2 11.9-14.5 [facility] KingwoodINR in Platelet poor plasma by Coagulation [id number] 09:58:00* Test Item Value Reference Range Interpretation Comments Prothromb Time International Ratio (test code = 6301-6) 0.86 Oral Anticoagulant Therapy INR Values:1. Low Intensity Therapy 1.5 - 2.02 . Moderate Intensity Therapy 2.0 - 3.03. High Intensity Therapy(1) 2.5 - 3. 54. High Intensity Therapy(2) 3.0 - 4.05. Panic Value INR > 5.0 [facility] KingwoodActivated partial thromboplastin time (aPTT) in platelet poor plasma by coagulation [id number] 09:58:00* Test Item Value Reference Range Interpretation Comments Activated Partial Thromboplast Time (test code = 65991-8) 31.2 23.8-35.5 [facility] KingwoodUrine color vqfmhpopepsxb4547-02-25 09:58:00* Test Item Value Reference Range Interpretation Comments Urine Color (test code = 5778-6) YELLOW YELLOW [facility] KingwoodUrine kbfpcvo5137-27-78 09:58:00* Test Item Value Reference Range Interpretation Comments Urine Clarity (test code = 15933-5) [facility] by Test strip 2019-08-11 09:58:00* Test Item Value Reference Range Interpretation Comments Urine Specific [place] (test code = 5811-5) 1.020 1.010-1.02 5 [facility] KingwoodUrine pH measurement by automated test [id number] 09:58:00* Test Item Value Reference Range Interpretation Comments Urine pH (test code = 73170-2) 5.5 5-7 [facility] KingwoodUrine leukocyte esterase detection by rplctzfa6624-03-69 09:58:00* Test Item Value Reference Range Interpretation Comments Urine Leukocyte Esterase (test code = 5799-2) MODERATE NEGATIVE [facility] KingwoodUrine nitrite geeygdnhc4655-34-71 09:58:00* Test Item Value Reference Range Interpretation Comments Urine Nitrite (test code = 67414-2) NEGATIVE NEGATIVE [facility] KingwoodUrine protein measurement by test strip (mass/volume)2019-08-11 09:58:00* Test Item Value Reference Range Interpretation Comments Urine Protein (test code = 5804-0) 2+ NEGATIVE [facility] KingwoodUrine glucose rvwvqwmjq6822-11-87 09:58:00* Test Item Value Reference Range Interpretation Comments Urine Glucose (UA) (test code = 2349-9) 2+ NEGATIVE [facility] KingwoodUrine ketones detection by automated test udack5203-44-03 09:58:00* Test Item Value Reference Range Interpretation Comments Urine Ketones (test code = 85018-0) NEGATIVE NEGATIVE [facility] KingwoodUrine urobilinogen measurement by test strip (mass/volume)2019-08-11 09:58:00* Test Item Value Reference Range Interpretation Comments Urine Urobilinogen (test code = 87272-8) 0.2 0.2-1 [facility] KingwoodUrine total bilirubin measurement (mass/volume)2019-08-11 09:58:00* Test Item Value Reference Range Interpretation Comments Urine Bilirubin (test code = 1978-6) NEGATIVE NEGATIVE [facility] KingwoodUrine erythrocytes oxouuijte8737-33-48 09:58:00* Test Item Value Reference Range Interpretation Comments Urine Blood (test code = 58062-5) MODERATE NEGATIVE [facility] KingwoodAutomated urine sediment leukocyte count by microscopy (number/high power field)2019-08-11 09:58:00* Test Item Value Reference Range Interpretation Comments Urine WBC (test code = 5821-4) 21-50 0-5 [facility] KingwoodErythrocytes detection in urine sediment by light lazwghzdjb8243-97-42 09:58:00* Test Item Value Reference Range Interpretation Comments Urine RBC (test code = 79901-2) >50 0-5 [facility] KingwoodBacteria detection in urine sediment by light sgtqrakddf3004-89-19 09:58:00* Test Item Value Reference Range Interpretation Comments Urine Bacteria (test code = 86433-5) FEW NONE [facility] KingwoodEpithelial cells detection in urine sediment by light sqpeamnegi5671-74-67 09:58:00* Test Item Value Reference Range Interpretation Comments Urine Epithelial Cells (test code = 51714-2) FEW NONE [facility] or plasma sodium measurement (moles/volume)2019-08-11 09:58:00* Test Item Value Reference Range Interpretation Comments Sodium Level (test code = 2951-2) 142 136-145 [facility] McAllenerum or plasma potassium measurement (moles/volume)2019-08-11 09:58:00* Test Item Value Reference Range Interpretation Comments Potassium Level (test code = 2823-3) 3.6 3.5-5.1 [facility] McAllenerum or plasma chloride measurement (moles/volume)2019-08-11 09:58:00* Test Item Value Reference Range Interpretation Comments Chloride Level (test code = 2075-0) 105 98-107 [facility] McAllenerum or plasma carbon dioxide, total measurement (moles/volume)2019-08-11 09:58:00* Test Item Value Reference Range Interpretation Comments Carbon Dioxide Level (test code = 2028-9) 24 22-29 [facility]Allenerum or plasma anion gkr2667-08-27 09:58:00* Test Item Value Reference Range Interpretation Comments Anion Gap (test code = 90840-9) 16.6 8-16 [facility]enerum or plasma urea nitrogen measurement (mass/volume)2019-08-11 09:58:00* Test Item Value Reference Range Interpretation Comments Blood Urea Nitrogen (test code = 3094-0) 19 7-26 [facility]enerum or plasma creatinine measurement (mass/volume)2019-08-11 09:58:00* Test Item Value Reference Range Interpretation Comments Creatinine (test code = 2160-0) 1.66 0.72-1.25 [facility]enerum or plasma urea nitrogen/creatinine mass fpxfe3423-76-85 09:58:00* Test Item Value Reference Range Interpretation Comments BUN/Creatinine Ratio (test code = 3097-3) 11 6-25 [facility] KingwoodEstimated glomerular filtration rate (GFR) vuxeyofusaevj8294-79-42 09:58:00* Test Item Value Reference Range Interpretation Comments Estimat Glomerular Filtration Rate (test code = 912460230) 43 >60 Ranges were taken from the National Kidney Disease Education Program and the [facility] literature.Reference ranges:60 or greater: [id number] ( for 3 consecutive months): Chronic kidney disease 15 or less: Kidney failureMemorial [facility]ann [facility] Hospital KingwoodGlucose ebvfhaxhrgj4489-94-16 09:58:00* Test Item Value Reference Range Interpretation Comments Glucose Level (test code = QKS1115) 140 74-118 [facility]enerum or plasma calcium measurement (mass/volume)2019-08-11 09:58:00* Test Item Value Reference Range Interpretation Comments Calcium Level (test code = 26500-5) 10.0 8.4-10.2 [facility]enerum or plasma magnesium measurement (mass/volume)2019-08-11 09:58:00* Test Item Value Reference Range Interpretation Comments Magnesium Level (test code = 42464-3) 1.8 1.3-2.1 [facility]enerum or plasma total bilirubin measurement (mass/volume)2019-08-11 09:58:00* Test Item Value Reference Range Interpretation Comments Total Bilirubin (test code = 1975-2) 0.9 0.2-1.2 [facility] KingwoodFluoroscopic procedure less than one hour loqkzqfg5004-67-96 09:58:00* Test Item Value Reference Range Interpretation Comments Aspartate Amino Transf (AST/SGOT) (test code = Aspartate Amino Transf (AST/SGOT)) 18 5-34 [facility]Allenerum or plasma alanine aminotransferase measurement (enzymatic activity/volume)2019-08-11 09:58:00* Test Item Value Reference Range Interpretation Comments Alanine Aminotransferase (ALT/SGPT) (test code = 1742-6) 19 0-55 [facility]enerum or plasma protein measurement (mass/volume)2019-08-11 09:58:00* Test Item Value Reference Range Interpretation Comments Total Protein (test code = 2885-2) 8.2 6.5-8.1 [facility]enerum or plasma albumin measurement (mass/volume)2019-08-11 09:58:00* Test Item Value Reference Range Interpretation Comments Albumin (test code = 1751-7) 4.3 3.5-5.0 [facility] KingwoodPlasma globulin measurement (mass/volume) 2019-08-11 09:58:00* Test Item Value Reference Range Interpretation Comments Globulin (test code = 73679-3) 3.9 2.3-3.5 [facility]enerum or plasma albumin/globulin mass kyhwg1786-74-23 09:58:00* Test Item Value Reference Range Interpretation Comments Albumin/Globulin Ratio (test code = 1759-0) 1.1 0.8-2.0 [facility]enerum or plasma alkaline phosphatase measurement (enzymatic activity/volume)2019-08-11 09:58:00* Test Item Value Reference Range Interpretation Comments Alkaline Phosphatase (test code = 6768-6) 94 40-150 [facility] KingwoodBNP Kke-mBjp3845-98-03 09:58:00* Test Item Value Reference Range Interpretation Comments B-Type Natriuretic Peptide (test code = 40434-8) 13.1 0-100 [facility]enerum or plasma creatine kinase measurement (enzymatic activity/volume)2019-08-11 09:58:00* Test Item Value Reference Range Interpretation Comments Creatine Kinase (test code = 2157-6) 99 30-200 [facility] McAllenerum or plasma creatine kinase MB measurement (mass/volume)2019-08-11 09:58:00* Test Item Value Reference Range Interpretation Comments Creatine Kinase MB (test code = 43516-2) 1.10 0-5.0 [facility] KingwoodTroponin I measurement by highly sensitive enzyme pnyzwvgkodw5887-49-96 09:58:00* Test Item Value Reference Range Interpretation Comments Troponin I (test code = 09261-3) 0.008 0-0.300 [facility]enerum or plasma lipase measurement (enzymatic activity/volume)2019-08-11 09:58:00* Test Item Value Reference Range Interpretation Comments Lipase (test code = 3040-3) 54 8-78 [facility] KingwoodBlood leukocytes automated count (number/volume)2019-08-11 09:58:00* Test Item Value Reference Range Interpretation Comments White Blood Count (test code = 6690-2) 8.96 4.8-10.8 [facility] KingwoodBlood erythrocytes automated count (number/volume)2019-08-11 09:58:00* Test Item Value Reference Range Interpretation Comments Red Blood Count (test code = 789-8) 5.25 4.3-5.7 [facility] KingwoodBlood hemoglobin measurement (moles/volume)2019-08-11 09:58:00* Test Item Value Reference Range Interpretation Comments Hemoglobin (test code = 57728-5) 13.8 14.0-18.0 [facility] KingwoodAutomated blood hematocrit (volume fraction)2019-08-11 09:58:00* Test Item Value Reference Range Interpretation Comments Hematocrit (test code = 4544-3) 44.5 38.2-49.6 [facility] KingwoodAutomated erythrocyte mean corpuscular klldvu3563-81-78 09:58:00* Test Item Value Reference Range Interpretation Comments Mean Corpuscular Volume (test code = 787-2) 84.8 81-99 [facility] KingwoodAutomated erythrocyte mean corpuscular hemoglobin (mass per erythrocyte)2019-08-11 09:58:00* Test Item Value Reference Range Interpretation Comments Mean Corpuscular Hemoglobin (test code = 785-6) 26.3 28-32 [facility]woodAutour community hospitaled erythrocyte mean corpuscular hemoglobin concentration measurement (mass/volume)2019-08-11 09:58:00* Test Item Value Reference Range Interpretation Comments Mean Corpuscular Hemoglobin Concent (test code = 786-4) 31.0 31-35 [facility] KingwoodRDW VkoCw-Oao8664-32-03 09:58:00* Test Item Value Reference Range Interpretation Comments Red Cell Distribution Width (test code = 25569-2) 15.2 11.7 -14.4 [facility]woodAutour community hospitaled blood platelet count (count/volume)2019-08-11 09:58:00* Test Item Value Reference Range Interpretation Comments Platelet Count (test code = 777-3) 283 140-360 [facility] KingwoodAutomated blood segmented neutrophil count as percentage of total pbpbmxkjhb9769-77-63 09:58:00* Test Item Value Reference Range Interpretation Comments Neutrophils (%) (Auto) (test code = 61732-2) 65.7 38.7-80.0 [facility] KingwoodAutour community hospitaled blood lymphocyte count as percentage ot total jexovmsbxi7628-60-14 09:58:00* Test Item Value Reference Range Interpretation Comments Lymphocytes (%) (Auto) (test code = 736-9) 22.0 18.0-39.1 [facility] KingwoodAutomated blood monocyte count as percentage of total zkalxmlqxt1481-25-62 09:58:00* Test Item Value Reference Range Interpretation Comments Monocytes (%) (Auto) (test code = 5905-5) 8.1 4.4-11.3 [facility] KingwoodAutomated blood eosinophil count as percentage of total jpoafzfily1112-98-87 09:58:00* Test Item Value Reference Range Interpretation Comments Eosinophils (%) (Auto) (test code = 713-8) 3.6 0.0-6.0 [facility] KingwoodAutomated blood basophil count as percentage of total kfyphtsuyu0775-18-71 09:58:00* Test Item Value Reference Range Interpretation Comments Basophils (%) (Auto) (test code = 706-2) 0.3 0.0-1.0 [facility] KingwoodFluoroscopic procedure less than one hour bolqhqbf9655-45-27 09:58:00* Test Item Value Reference Range Interpretation Comments IM GRANULOCYTES % (test code = IM GRANULOCYTES %) 0.3 0.0- 1.0 [facility] KingwoodAutomated blood neutrophil count 2019-08-11 09:58:00* Test Item Value Reference Range Interpretation Comments Neutrophils # (Auto) (test code = 751-8) 5.9 2.1-6.9 [facility] KingwoodBlood lymphocytes count (number/volume) 2019-08-11 09:58:00* Test Item Value Reference Range Interpretation Comments Lymphocytes # (Auto) (test code = 64839-7) 2.0 1.0-3.2 [facility] KingwoodBlood monocytes automated count (number/volume)2019-08-11 09:58:00* Test Item Value Reference Range Interpretation Comments Monocytes # (Auto) (test code = 742-7) 0.7 0.2-0.8 [facility] KingwoodAutomated blood eosinophil count 2019-08-11 09:58:00* Test Item Value Reference Range Interpretation Comments Eosinophils # (Auto) (test code = 711-2) 0.3 0.0-0.4 [facility]woodAutomated blood basophil count (count/volume)2019-08-11 09:58:00* Test Item Value Reference Range Interpretation Comments Basophils # (Auto) (test code = 704-7) 0.0 0.0-0.1 [facility] KingwoodFluoroscopic procedure less than one hour ykxhufrn9231-79-46 09:58:00* Test Item Value Reference Range Interpretation Comments Absolute Immature Granulocyte (auto (chel t code = Absolute Immature Granulocyte (auto) 0.03 0-0.1 [facility] KingwoodProthrombin time (PT) in platelet poor plasma by coagulation jbmdy8574-84-53 09:58:00* Test Item Value Reference Range Interpretation Comments Prothrombin Time (test code = 5902-2) 12.2 11.9-14.5 [facility] KingwoodINR in Platelet poor plasma by Coagulation fwsps4778-90-01 09:58:00* Test Item Value Reference Range Interpretation Comments Prothromb Time International Ratio (test code = 6301-6) 0.86 Oral Anticoagulant Therapy INR Values:1. Low Intensity Therapy 1.5 - 2.02 . Moderate Intensity Therapy 2.0 - 3.03. High Intensity Therapy(1) 2.5 - 3. 54. High Intensity Therapy(2) 3.0 - 4.05. Panic Value INR > 5.0 [facility] KingwoodActivated partial thromboplastin time (aPTT) in platelet poor plasma by coagulation mkddu0305-02-34 09:58:00* Test Item Value Reference Range Interpretation Comments Activated Partial Thromboplast Time (test code = 96419-6) 31.2 23.8-35.5 [facility] KingwoodUrine color jfunpjzpjjvxu9602-12-29 09:58:00* Test Item Value Reference Range Interpretation Comments Urine Color (test code = 5778-6) YELLOW YELLOW [facility] KingwoodUrine vtylwim2896-12-25 09:58:00* Test Item Value Reference Range Interpretation Comments Urine Clarity (test code = 70046-7) CLOUDY CLEAR [facility] gravity of Urine by Test strip 2019-08-11 09:58:00* Test Item Value Reference Range Interpretation Comments Urine Specific [place] (test code = 5811-5) 1.020 1.010-1.02 5 [facility] KingwoodUrine pH measurement by automated test bbega2593-49-27 09:58:00* Test Item Value Reference Range Interpretation Comments Urine pH (test code = 18840-4) 5.5 5-7 [facility] KingwoodUrine leukocyte esterase detection by rxirdkxf9772-15-44 09:58:00* Test Item Value Reference Range Interpretation Comments Urine Leukocyte Esterase (test code = 5799-2) MODERATE NEGATIVE [facility] KingwoodUrine nitrite jcbmhesln5636-62-31 09:58:00* Test Item Value Reference Range Interpretation Comments Urine Nitrite (test code = 91218-1) NEGATIVE NEGATIVE [facility] KingwoodUrine protein measurement by test strip (mass/volume)2019-08-11 09:58:00* Test Item Value Reference Range Interpretation Comments Urine Protein (test code = 5804-0) 2+ NEGATIVE [facility] KingwoodUrine glucose iehoyqxyx0308-46-54 09:58:00* Test Item Value Reference Range Interpretation Comments Urine Glucose (UA) (test code = 2349-9) 2+ NEGATIVE [facility] KingwoodUrine ketones detection by automated test peuoh5661-57-37 09:58:00* Test Item Value Reference Range Interpretation Comments Urine Ketones (test code = 69315-4) NEGATIVE NEGATIVE [facility] KingwoodUrine urobilinogen measurement by test strip (mass/volume)2019-08-11 09:58:00* Test Item Value Reference Range Interpretation Comments Urine Urobilinogen (test code = 74373-8) 0.2 0.2-1 [facility] KingwoodUrine total bilirubin measurement (mass/volume)2019-08-11 09:58:00* Test Item Value Reference Range Interpretation Comments Urine Bilirubin (test code = 1978-6) NEGATIVE NEGATIVE [facility] KingwoodUrine erythrocytes sawbzopqd8052-96-52 09:58:00* Test Item Value Reference Range Interpretation Comments Urine Blood (test code = 61235-9) MODERATE NEGATIVE [facility] KingwoodAutomated urine sediment leukocyte count by microscopy (number/high power field)2019-08-11 09:58:00* Test Item Value Reference Range Interpretation Comments Urine WBC (test code = 5821-4) 21-50 0-5 [facility] KingwoodErythrocytes detection in urine sediment by light ijfwpfaamu5258-60-24 09:58:00* Test Item Value Reference Range Interpretation Comments Urine RBC (test code = 95093-1) >50 0-5 [facility] KingwoodBacteria detection in urine sediment by light lhmlbjahew3578-35-34 09:58:00* Test Item Value Reference Range Interpretation Comments Urine Bacteria (test code = 89085-1) FEW NONE [facility] KingwoodEpithelial cells detection in urine sediment by light gnllhdokvo9814-70-92 09:58:00* Test Item Value Reference Range Interpretation Comments Urine Epithelial Cells (test code = 84895-5) FEW NONE [facility]enerum or plasma sodium measurement (moles/volume)2019-08-11 09:58:00* Test Item Value Reference Range Interpretation Comments Sodium Level (test code = 2951-2) 142 136-145 [facility]enerum or plasma potassium measurement (moles/volume)2019-08-11 09:58:00* Test Item Value Reference Range Interpretation Comments Potassium Level (test code = 2823-3) 3.6 3.5-5.1 [facility]enerum or plasma chloride measurement (moles/volume)2019-08-11 09:58:00* Test Item Value Reference Range Interpretation Comments Chloride Level (test code = 2075-0) 105 98-107 [facility]enerum or plasma carbon dioxide, total measurement (moles/volume)2019-08-11 09:58:00* Test Item Value Reference Range Interpretation Comments Carbon Dioxide Level (test code = 2028-9) 24 22-29 [facility]ener[facility] or plasma anion zrg9020-91-31 09:58:00* Test Item Value Reference Range Interpretation Comments Anion Gap (test code = 50897-1) 16.6 8-16 [facility] or plasma urea nitrogen measurement (mass/volume)2019-08-11 09:58:00* Test Item Value Reference Range Interpretation Comments Blood Urea Nitrogen (test code = 3094-0) 19 7-26 [facility]enerum or plasma creatinine measurement (mass/volume)2019-08-11 09:58:00* Test Item Value Reference Range Interpretation Comments Creatinine (test code = 2160-0) 1.66 0.72-1.25 [facility]enerum or plasma urea nitrogen/creatinine mass duqpl2741-65-62 09:58:00* Test Item Value Reference Range Interpretation Comments BUN/Creatinine Ratio (test code = 3097-3) 11 6-25 [facility] KingwoodEstimated glomerular filtration rate (GFR) bykuzefliqjue5088-27-17 09:58:00* Test Item Value Reference Range Interpretation Comments Estimat Glomerular Filtration Rate (test code = 566144264) 43 >60 Ranges were taken from the National Kidney Disease Education Program and the [facility]ney Foundation literature.Reference ranges:60 or greater: Dvturb27-09 ( for 3 consecutive months): Chronic kidney disease 15 or less: Kidney failureMemorial Hermann Surgical Hospital KingwoodGlucose thjxzkoofjx1479-78-21 09:58:00* Test Item Value Reference Range Interpretation Comments Glucose Level (test code = BFJ7201) 140 74-118 [facility]ener[facility] or plasma calcium measurement (mass/volume)2019-08-11 09:58:00* Test Item Value Reference Range Interpretation Comments Calcium Level (test code = 99013-2) 10.0 8.4-10.2 [facility] or plasma magnesium measurement (mass/volume)2019-08-11 09:58:00* Test Item Value Reference Range Interpretation Comments Magnesium Level (test code = 00673-7) 1.8 1.3-2.1 [facility]ener[facility] or plasma total bilirubin measurement (mass/volume)2019-08-11 09:58:00* Test Item Value Reference Range Interpretation Comments Total Bilirubin (test code = 1975-2) 0.9 0.2-1.2 [facility] KingwoodFluoroscopic procedure less than one hour gbtlebhd8892-75-70 09:58:00* Test Item Value Reference Range Interpretation Comments Aspartate Amino Transf (AST/SGOT) (test code = Aspartate Amino Transf (AST/SGOT)) 18 5-34 [facility]enerum or plasma alanine aminotransferase measurement (enzymatic activity/volume)2019-08-11 09:58:00* Test Item Value Reference Range Interpretation Comments Alanine Aminotransferase (ALT/SGPT) (test code = 1742-6) 19 0-55 [facility] or plasma protein measurement (mass/volume)2019-08-11 09:58:00* Test Item Value Reference Range Interpretation Comments Total Protein (test code = 2885-2) 8.2 6.5-8.1 [facility] or plasma albumin measurement (mass/volume)2019-08-11 09:58:00* Test Item Value Reference Range Interpretation Comments Albumin (test code = 1751-7) 4.3 3.5-5.0 [facility]woodPlasma globulin measurement (mass/volume) 2019-08-11 09:58:00* Test Item Value Reference Range Interpretation Comments Globulin (test code = 10220-5) 3.9 2.3-3.5 [facility] or plasma albumin/globulin mass heuky3629-45-88 09:58:00* Test Item Value Reference Range Interpretation Comments Albumin/Globulin Ratio (test code = 1759-0) 1.1 0.8-2.0 [facility] or plasma alkaline phosphatase measurement (enzymatic activity/volume)2019-08-11 09:58:00* Test Item Value Reference Range Interpretation Comments Alkaline Phosphatase (test code = 6768-6) 94 40-150 [facility] KingwoodBNP Ssb-kRav8889-41-03 09:58:00* Test Item Value Reference Range Interpretation Comments B-Type Natriuretic Peptide (test code = 20748-1) 13.1 0-100 [facility] or plasma creatine kinase measurement (enzymatic activity/volume)2019-08-11 09:58:00* Test Item Value Reference Range Interpretation Comments Creatine Kinase (test code = 2157-6) 99 30-200 [facility] or plasma creatine kinase MB measurement (mass/volume)2019-08-11 09:58:00* Test Item Value Reference Range Interpretation Comments Creatine Kinase MB (test code = 48992-9) 1.10 0-5.0 [facility] KingwoodTroponin I measurement by highly sensitive enzyme mlqwurkdldj8457-49-65 09:58:00* Test Item Value Reference Range Interpretation Comments Troponin I (test code = 59658-0) 0.008 0-0.300 [facility] or plasma lipase measurement (enzymatic activity/volume)2019-08-11 09:58:00* Test Item Value Reference Range Interpretation Comments Lipase (test code = 3040-3) 54 8-78 [facility] KingwoodBlood mpyovuu6585-94-90 09:58:00* Test Item Value Reference Range Interpretation Comments Blood Culture (test code = 18837253) NO GROWTH AFTER 5 DAYS, FINAL REPORT [facility] KingwoodProthrombin time (PT) in platelet poor plasma by coagulation kwzur1348-08-02 09:58:00* Test Item Value Reference Range Interpretation Comments Prothrombin Time (test code = 5902-2) 12.2 11.9-14.5 [facility] KingwoodINR in Platelet poor plasma by Coagulation adpmo1168-41-40 09:58:00* Test Item Value Reference Range Interpretation Comments Prothromb Time International Ratio (test code = 6301-6) 0.86 Oral Anticoagulant Therapy INR Values:1. Low Intensity Therapy 1.5 - 2.02 . Moderate Intensity Therapy 2.0 - 3.03. High Intensity Therapy(1) 2.5 - 3. 54. High Intensity Therapy(2) 3.0 - 4.05. Panic Value INR > 5.0 [facility] KingwoodActivated partial thromboplastin time (aPTT) in platelet poor plasma by coagulation tenei9430-10-84 09:58:00* Test Item Value Reference Range Interpretation Comments Activated Partial Thromboplast Time (test code = 48906-2) 31.2 23.8-35.5 [facility] KingwoodBNP Uyp-jPbk1001-26-03 09:58:00* Test Item Value Reference Range Interpretation Comments B-Type Natriuretic Peptide (test code = 52482-9) 13.1 0-100 [facility] or plasma lipase measurement (enzymatic activity/volume)2019-08-11 09:58:00* Test Item Value Reference Range Interpretation Comments Lipase (test code = 3040-3) 54 8-78 [facility] 15:22:00 [facility] [address] [address] Patient Name: ZAYNAB FLORES MR #: [id number] : 1965 Age/Sex: 54/M Req #: [id number] Adm Physician: Ordered by: CARLOS COX MD Report #: [id number] Location: [facility] Room/Bed: Procedure: [id number] DX/ABDOMEN -1VIEW (KUB) Exam Date: 08/05/19 Exam [...] Level (test code = 2951-2) 137 136-145 [facility] KingwoodPotassium Txicl2407-82-83 12:59:00* Test Item Value Reference Range Interpretation Comments Potassium Level (test code = 2823-3) 3.6 3.5-5.1 [facility] KingwoodChloride Meccq2851-38-38 12:59:00* Test Item Value Reference Range Interpretation Comments Chloride Level (test code = 2075-0) 101 98-107 [facility] KingwoodCarbon Dioxide Liudn8531-53-92 12:59:00* Test Item Value Reference Range Interpretation Comments Carbon Dioxide Level (test code = 2028-9) 21 22-29 L [facility] KingwoodAnion Spq7020-04-21 12:59:00* Test Item Value Reference Range Interpretation Comments Anion Gap (test code = 45866-5) 18.6 8-16 H [facility] KingwoodBlood Urea Tdeknctk6611-99-10 12:59:00* Test Item Value Reference Range Interpretation Comments Blood Urea Nitrogen (test code = 3094-0) 26 7-26 [facility] KingwoodCreatinine2020-01-23 12:59:00* Test Item Value Reference Range Interpretation Comments Creatinine (test code = 2160-0) 1.60 0.72-1.25 H [facility] KingwoodBUN/Creatinine Fjkvh1279-48-36 12:59:00* Test Item Value Reference Range Interpretation Comments BUN/Creatinine Ratio (test code = 3097-3) 16 6-25 [facility] KingwoodEstimat Glomerular Filtration Rate 2019-04-01 12:59:00* Test Item Value Reference Range Interpretation Comments Estimat Glomerular Filtration Rate (test code = 219402961) 45 >60 L Ranges were taken from the National Kidney Disease Education Program and the [facility] Foundation literature.Reference ranges:60 or greater: Rhmzqr42-05 ( for 3 consecutive months): Chronic kidney disease 15 or less: Kidney failureMemorial Hermann Surgical Hospital KingwoodGlucose Jexab5074-47-40 12:59:00* Test Item Value Reference Range Interpretation Comments Glucose Level (test code = WCH5516) 152 74-118 H [facility] KingwoodCalcium Jwwyg9733-92-32 12:59:00* Test Item Value Reference Range Interpretation Comments Calcium Level (test code = 09515-1) 10.3 8.4-10.2 H [facility] KingwoodTotal Rghkapiit8373-92-21 12:59:00* Test Item Value Reference Range Interpretation Comments Total Bilirubin (test code = 1975-2) 1.1 0.2-1.2 [facility] KingwoodAspartate Amino Transf (AST/SGOT) 2019-04-01 12:59:00* Test Item Value Reference Range Interpretation Comments Aspartate Amino Transf (AST/SGOT) (test code = Aspartate Amino Transf (AST/SGOT)) 26 5-34 [facility] KingwoodAlanine Aminotransferase (ALT/SGPT) 2019-04-01 12:59:00* Test Item Value Reference Range Interpretation Comments Alanine Aminotransferase (ALT/SGPT) (test code = 1742-6) 31 0-55 [facility] KingwoodTotal Dtmxylp9304-63-70 12:59:00* Test Item Value Reference Range Interpretation Comments Total Protein (test code = 2885-2) 8.1 6.5-8.1 [facility] KingwoodAlbumin2020-01-23 12:59:00* Test Item Value Reference Range Interpretation Comments Albumin (test code = 1751-7) 4.5 3.5-5.0 [facility] KingwoodGlobulin2020-01-23 12:59:00* Test Item Value Reference Range Interpretation Comments Globulin (test code = 17016-1) 3.6 2.3-3.5 H [facility] KingwoodAlbumin/Globulin Bhipb8399-16-47 12:59:00 * Test Item Value Reference Range Interpretation Comments Albumin/Globulin Ratio (test code = 1759-0) 1.3 0.8-2.0 [facility] KingwoodAlkaline Hhkhmgzmyuw5246-08-45 12:59:00* Test Item Value Reference Range Interpretation Comments Alkaline Phosphatase (test code = 6768-6) 92 40-150 [facility] KingwoodWhite Blood Qfuhw3603-06-52 12:49:00* Test Item Value Reference Range Interpretation Comments White Blood Count (test code = 6690-2) 12.29 4.8-10.8 H [facility] KingwoodRed Blood Vkrjb9002-51-59 12:49:00* Test Item Value Reference Range Interpretation Comments Red Blood Count (test code = 789-8) 5.23 4.3-5.7 [facility] KingwoodHemoglobin2020-01-23 12:49:00* Test Item Value Reference Range Interpretation Comments Hemoglobin (test code = 89604-3) 14.1 14.0-18.0 [facility] KingwoodHematocrit2020-01-23 12:49:00* Test Item Value Reference Range Interpretation Comments Hematocrit (test code = 4544-3) 43.4 38.2-49.6 [facility] KingwoodMean Corpuscular Bctrss2899-05-86 12:49:00* Test Item Value Reference Range Interpretation Comments Mean Corpuscular Volume (test code = 787-2) 83.0 81-99 [facility] KingwoodMean Corpuscular Jxziqeyfgk5372-81-01 12:49:00* Test Item Value Reference Range Interpretation Comments Mean Corpuscular Hemoglobin (test code = 785-6) 27.0 28-32 L [facility] KingwoodMean Corpuscular Hemoglobin Concent 2019-04-01 12:49:00* Test Item Value Reference Range Interpretation Comments Mean Corpuscular Hemoglobin Concent (test code = 786-4) 32.5 31-35 [facility] KingwoodRed Cell Distribution Yqlxd9436-22-01 12:49:00* Test Item Value Reference Range Interpretation Comments Red Cell Distribution Width (test code = 04789-0) 15.4 11.7 -14.4 H [facility] KingwoodPlatelet Sawex3789-76-61 12:49:00* Test Item Value Reference Range Interpretation Comments Platelet Count (test code = 777-3) 279 140-360 [facility] KingwoodNeutrophils (%) (Auto)2019-04-01 12:49:00 * Test Item Value Reference Range Interpretation Comments Neutrophils (%) (Auto) (test code = 31713-7) 68.1 38.7-80.0 [facility] KingwoodLymphocytes (%) (Auto)2019-04-01 12:49:00 * Test Item Value Reference Range Interpretation Comments Lymphocytes (%) (Auto) (test code = 736-9) 22.0 18.0-39.1 [facility] KingwoodMonocytes (%) (Auto)2019-04-01 12:49:00* Test Item Value Reference Range Interpretation Comments Monocytes (%) (Auto) (test code = 5905-5) 7.2 4.4-11.3 [facility] KingwoodEosinophils (%) (Auto)2019-04-01 12:49:00 * Test Item Value Reference Range Interpretation Comments Eosinophils (%) (Auto) (test code = 713-8) 1.8 0.0-6.0 [facility] KingwoodBasophils (%) (Auto)2019-04-01 12:49:00* Test Item Value Reference Range Interpretation Comments Basophils (%) (Auto) (test code = 706-2) 0.4 0.0-1.0 [facility] KingwoodIM GRANULOCYTES %2019-04-01 12:49:00* Test Item Value Reference Range Interpretation Comments IM GRANULOCYTES % (test code = IM GRANULOCYTES %) 0.5 0.0- 1.0 [facility] KingwoodNeutrophils # (Auto)2019-04-01 12:49:00* Test Item Value Reference Range Interpretation Comments Neutrophils # (Auto) (test code = 751-8) 8.4 2.1-6.9 H [facility] KingwoodLymphocytes # (Auto)2019-04-01 12:49:00* Test Item Value Reference Range Interpretation Comments Lymphocytes # (Auto) (test code = 15872-5) 2.7 1.0-3.2 [facility] KingwoodMonocytes # (Auto)2019-04-01 12:49:00* Test Item Value Reference Range Interpretation Comments Monocytes # (Auto) (test code = 742-7) 0.9 0.2-0.8 H [facility] KingwoodEosinophils # (Auto)2019-04-01 12:49:00* Test Item Value Reference Range Interpretation Comments Eosinophils # (Auto) (test code = 711-2) 0.2 0.0-0.4 [facility] KingwoodBasophils # (Auto)2019-04-01 12:49:00* Test Item Value Reference Range Interpretation Comments Basophils # (Auto) (test code = 704-7) 0.1 0.0-0.1 [facility] KingwoodAbsolute Immature Granulocyte (auto 2019-04-01 12:49:00* Test Item Value Reference Range Interpretation Comments Absolute Immature Granulocyte (auto (chel t code = Absolute Immature Granulocyte (auto) 0.06 0-0.1 [facility] KingwoodUrine HPS1865-68-96 12:03:00* Test Item Value Reference Range Interpretation Comments Urine WBC (test code = 5821-4) 21-50 0-5 H [facility] KingwoodUrine YMS0148-03-30 12:03:00* Test Item Value Reference Range Interpretation Comments Urine RBC (test code = 49847-1) 11-20 0-5 H [facility] KingwoodUrine Qwjhzczo8191-87-57 12:03:00* Test Item Value Reference Range Interpretation Comments Urine Bacteria (test code = 60485-3) MANY NONE H [facility] KingwoodUrine Epithelial Dxqur0424-92-99 12:03:00 * Test Item Value Reference Range Interpretation Comments Urine Epithelial Cells (test code = 44159-3) MODERATE NONE [facility] KingwoodUrine Fswxk8856-53-83 12:03:00* Test Item Value Reference Range Interpretation Comments Urine Yeast (test code = 21822-5) MANY NONE H [facility] KingwoodCT ABDOMEN/PELVIS HT9562-92-13 11:48:00 [facility] [address] [address] Patient Name: ZAYNAB FLORES MR #: [id number] : 1965 Age/Sex: 54/M Req #: [id number] Adm Physician: Ordered by: RAMAN THAKKAR [employer]ING [employer]ER Report #: [id number] Location: ER Room/Bed: Procedure: 17 CT/CT ABDOMEN/PELVIS [...] on 04/01/19 1156 COPY TO: RAMAN CHICAS [employer]ER Urine Eiwut4412-75-12 11:33:00* Test Item Value Reference Range Interpretation Comments Urine Color (test code = 5778-6) YELLOW YELLOW [facility] KingwoodUrine Zzkmrmy0460-31-81 11:33:00* Test Item Value Reference Range Interpretation Comments Urine Clarity (test code = 37152-0) CLOUDY CLEAR H [facility] KingwoodUrine Specific Prqjpzz5757-54-43 11:33:00 * Test Item Value Reference Range Interpretation Comments Urine Specific [place] (test code = 5811-5) 1.015 1.010-1.02 5 [facility] KingwoodUrine gU6728-42-80 11:33:00* Test Item Value Reference Range Interpretation Comments Urine pH (test code = 06117-6) 6 5-7 [facility] KingwoodUrine Leukocyte Mizyekqv2597-82-75 11:33:00* Test Item Value Reference Range Interpretation Comments Urine Leukocyte Esterase (test code = 5799-2) SMALL NEGATIVE [facility] KingwoodUrine Jzomerf2274-53-78 11:33:00* Test Item Value Reference Range Interpretation Comments Urine Nitrite (test code = 34310-9) NEGATIVE NEGATIVE [facility] KingwoodUrine Qdhrhmb4846-72-04 11:33:00* Test Item Value Reference Range Interpretation Comments Urine Protein (test code = 5804-0) NEGATIVE NEGATIVE [facility] KingwoodUrine Glucose (UA)2019-04-01 11:33:00* Test Item Value Reference Range Interpretation Comments Urine Glucose (UA) (test code = 2349-9) 3+ NEGATIVE [facility] KingwoodUrine Tgnqddw6638-85-13 11:33:00* Test Item Value Reference Range Interpretation Comments Urine Ketones (test code = 10399-2) NEGATIVE NEGATIVE [facility] KingwoodUrine Gmnfyscdreoe9642-68-75 11:33:00* Test Item Value Reference Range Interpretation Comments Urine Urobilinogen (test code = 53440-8) 0.2 0.2-1 [facility] KingwoodUrine Oohczelbx4531-34-72 11:33:00* Test Item Value Reference Range Interpretation Comments Urine Bilirubin (test code = 1978-6) NEGATIVE NEGATIVE [facility] KingwoodUrine Vikll3086-65-70 11:33:00* Test Item Value Reference Range Interpretation Comments Urine Blood (test code = 60659-4) 1+ NEGATIVE [facility] KingwoodYeast detection in urine sediment by light zpuofkfzws8103-93-69 09:30:00* Test Item Value Reference Range Interpretation Comments Urine Yeast (test code = 67428-1) MANY NONE [facility] KingwoodBacterial urine ebywpfi4866-68-28 09:30:00* Test Item Value Reference Range Interpretation Comments Urine Culture (test code = 630-4) MICH PARAPSILOSIS [facility] KingwoodYeast detection in urine sediment by light dlafnoetwl7677-67-81 09:30:00* Test Item Value Reference Range Interpretation Comments Urine Yeast (test code = 85607-1) MANY NONE [facility] KingwoodBacterial urine rgdtuen7939-15-83 09:30:00* Test Item Value Reference Range Interpretation Comments Urine Culture (test code = 630-4) MICH PARAPSILOSIS [facility] KingwoodYeast detection in urine sediment by light lnevetvvgf5200-50-01 09:30:00* Test Item Value Reference Range Interpretation Comments Urine Yeast (test code = 33082-3) MANY NONE [facility] KingwoodBacterial urine nmglqda5730-64-78 09:30:00* Test Item Value Reference Range Interpretation Comments Urine Culture (test code = 630-4) MICH PARAPSILOSIS [facility]Allenodium Pkewb7665-03-62 21:45:00* Test Item Value Reference Range Interpretation Comments Sodium Level (test code = 2951-2) 139 136-145 [facility] KingwoodPotassium Klmwl4878-52-88 21:45:00* Test Item Value Reference Range Interpretation Comments Potassium Level (test code = 2823-3) 3.6 3.5-5.1 [facility] KingwoodChloride Swuzo4655-34-28 21:45:00* Test Item Value Reference Range Interpretation Comments Chloride Level (test code = 2075-0) 104 98-107 [facility] KingwoodCarbon Dioxide Vosmy7540-07-15 21:45:00* Test Item Value Reference Range Interpretation Comments Carbon Dioxide Level (test code = 2028-9) 23 22-29 [facility] KingwoodAnion Wik0483-96-84 21:45:00* Test Item Value Reference Range Interpretation Comments Anion Gap (test code = 30600-8) 15.6 8-16 [facility] KingwoodBlood Urea Qfamjqwc1932-00-00 21:45:00* Test Item Value Reference Range Interpretation Comments Blood Urea Nitrogen (test code = 3094-0) 20 7-26 [facility] KingwoodCreatinine2020-01-11 21:45:00* Test Item Value Reference Range Interpretation Comments Creatinine (test code = 2160-0) 1.62 0.72-1.25 H [facility] KingwoodBUN/Creatinine Ldvhn9352-39-71 21:45:00* Test Item Value Reference Range Interpretation Comments BUN/Creatinine Ratio (test code = 3097-3) 12 6-25 [facility] KingwoodEstimat Glomerular Filtration Rate 2019-03-20 21:45:00* Test Item Value Reference Range Interpretation Comments Estimat Glomerular Filtration Rate (test code = 966303051) 44 >60 L Ranges were taken from the National Kidney Disease Education Program and the [facility] Kid[facility] Foundation literature.Reference ranges:60 or greater: Umlhfq68-20 ( for 3 consecutive months): Chronic kidney disease 15 or less: Kidney failureMemorial Hermann Surgical Hospital KingwoodGlucose Ltqbh2424-32-77 21:45:00* Test Item Value Reference Range Interpretation Comments Glucose Level (test code = FER1319) 163 74-118 H [facility] KingwoodCalcium Wgfka4893-65-12 21:45:00* Test Item Value Reference Range Interpretation Comments Calcium Level (test code = 86271-7) 9.2 8.4-10.2 [facility] KingwoodTotal Akvqdifbi1957-64-99 21:45:00* Test Item Value Reference Range Interpretation Comments Total Bilirubin (test code = 1975-2) 0.7 0.2-1.2 [facility] KingwoodAspartate Amino Transf (AST/SGOT) 2019-03-20 21:45:00* Test Item Value Reference Range Interpretation Comments Aspartate Amino Transf (AST/SGOT) (test code = Aspartate Amino Transf (AST/SGOT)) 36 5-34 H [facility] KingwoodAlanine Aminotransferase (ALT/SGPT) 2019-03-20 21:45:00* Test Item Value Reference Range Interpretation Comments Alanine Aminotransferase (ALT/SGPT) (test code = 1742-6) 38 0-55 [facility] KingwoodTotal Zksxjbj4536-94-10 21:45:00* Test Item Value Reference Range Interpretation Comments Total Protein (test code = 2885-2) 7.2 6.5-8.1 [facility] KingwoodAlbumin2020-01-11 21:45:00* Test Item Value Reference Range Interpretation Comments Albumin (test code = 1751-7) 3.7 3.5-5.0 [facility] KingwoodGlobulin2020-01-11 21:45:00* Test Item Value Reference Range Interpretation Comments Globulin (test code = 04551-3) 3.5 2.3-3.5 [facility] KingwoodAlbumin/Globulin Vjqhv1250-87-85 21:45:00 * Test Item Value Reference Range Interpretation Comments Albumin/Globulin Ratio (test code = 1759-0) 1.1 0.8-2.0 [facility] KingwoodAlkaline Lscohfzznut7912-31-38 21:45:00* Test Item Value Reference Range Interpretation Comments Alkaline Phosphatase (test code = 6768-6) 81 40-150 [facility] KingwoodWhite Blood Bjleg3818-68-25 21:27:00* Test Item Value Reference Range Interpretation Comments White Blood Count (test code = 6690-2) 8.75 4.8-10.8 [facility] KingwoodRed Blood Vefws4506-11-75 21:27:00* Test Item Value Reference Range Interpretation Comments Red Blood Count (test code = 789-8) 4.65 4.3-5.7 [facility] KingwoodHemoglobin2020-01-11 21:27:00* Test Item Value Reference Range Interpretation Comments Hemoglobin (test code = 20525-6) 12.4 14.0-18.0 L [facility] KingwoodHematocrit2020-01-11 21:27:00* Test Item Value Reference Range Interpretation Comments Hematocrit (test code = 4544-3) 39.4 38.2-49.6 [facility] KingwoodMean Corpuscular Ocmbev2902-89-72 21:27:00* Test Item Value Reference Range Interpretation Comments Mean Corpuscular Volume (test code = 787-2) 84.7 81-99 [facility] KingwoodMean Corpuscular Xirsiydxqd1607-98-42 21:27:00* Test Item Value Reference Range Interpretation Comments Mean Corpuscular Hemoglobin (test code = 785-6) 26.7 28-32 L [facility] KingwoodMean Corpuscular Hemoglobin Concent 2019-03-20 21:27:00* Test Item Value Reference Range Interpretation Comments Mean Corpuscular Hemoglobin Concent (test code = 786-4) 31.5 31-35 [facility] KingwoodRed Cell Distribution Xcrhi7875-68-75 21:27:00* Test Item Value Reference Range Interpretation Comments Red Cell Distribution Width (test code = 02630-6) 15.8 11.7 -14.4 H [facility] KingwoodPlatelet Ztgfn2077-74-48 21:27:00* Test Item Value Reference Range Interpretation Comments Platelet Count (test code = 777-3) 197 140-360 [facility] KingwoodNeutrophils (%) (Auto)2019-03-20 21:27:00 * Test Item Value Reference Range Interpretation Comments Neutrophils (%) (Auto) (test code = 33744-2) 73.0 38.7-80.0 [facility] KingwoodLymphocytes (%) (Auto)2019-03-20 21:27:00 * Test Item Value Reference Range Interpretation Comments Lymphocytes (%) (Auto) (test code = 736-9) 12.5 18.0-39.1 L [facility] KingwoodMonocytes (%) (Auto)2019-03-20 21:27:00* Test Item Value Reference Range Interpretation Comments Monocytes (%) (Auto) (test code = 5905-5) 11.8 4.4-11.3 H [facility] KingwoodEosinophils (%) (Auto)2019-03-20 21:27:00 * Test Item Value Reference Range Interpretation Comments Eosinophils (%) (Auto) (test code = 713-8) 1.6 0.0-6.0 [facility] KingwoodBasophils (%) (Auto)2019-03-20 21:27:00* Test Item Value Reference Range Interpretation Comments Basophils (%) (Auto) (test code = 706-2) 0.3 0.0-1.0 [facility] KingwoodIM GRANULOCYTES %2019-03-20 21:27:00* Test Item Value Reference Range Interpretation Comments IM GRANULOCYTES % (test code = IM GRANULOCYTES %) 0.8 0.0- 1.0 [facility] KingwoodNeutrophils # (Auto)2019-03-20 21:27:00* Test Item Value Reference Range Interpretation Comments Neutrophils # (Auto) (test code = 751-8) 6.4 2.1-6.9 [facility] KingwoodLymphocytes # (Auto)2019-03-20 21:27:00* Test Item Value Reference Range Interpretation Comments Lymphocytes # (Auto) (test code = 29070-2) 1.1 1.0-3.2 [facility]woodMonocytes # (Auto)2019-03-20 21:27:00* Test Item Value Reference Range Interpretation Comments Monocytes # (Auto) (test code = 742-7) 1.0 0.2-0.8 H [facility]woodEosinophils # (Auto)2019-03-20 21:27:00* Test Item Value Reference Range Interpretation Comments Eosinophils # (Auto) (test code = 711-2) 0.1 0.0-0.4 [facility]woodBasophils # (Auto)2019-03-20 21:27:00* Test Item Value Reference Range Interpretation Comments Basophils # (Auto) (test code = 704-7) 0.0 0.0-0.1 [facility] KingwoodAbsolute Immature Granulocyte (auto 2019-03-20 21:27:00* Test Item Value Reference Range Interpretation Comments Absolute Immature Granulocyte (auto (chel t code = Absolute Immature Granulocyte (auto) 0.07 0-0.1 [facility] KingwoodUrine WSP7758-48-46 21:25:00* Test Item Value Reference Range Interpretation Comments Urine WBC (test code = 5821-4) 21-50 0-5 H [facility] KingwoodUrine FSP7679-04-26 21:25:00* Test Item Value Reference Range Interpretation Comments Urine RBC (test code = 28460-7) 21-50 0-5 H [facility] KingwoodUrine Aenifozi2985-77-62 21:25:00* Test Item Value Reference Range Interpretation Comments Urine Bacteria (test code = 87790-7) PRESENT NONE [facility] KingwoodUrine Epithelial Vljej0951-42-69 21:25:00 * Test Item Value Reference Range Interpretation Comments Urine Epithelial Cells (test code = 92702-6) RARE NONE [facility] KingwoodUrine Xisxp1298-04-23 21:19:00* Test Item Value Reference Range Interpretation Comments Urine Color (test code = 5778-6) YELLOW YELLOW [facility]woodUrine Wreocpo5471-96-47 21:19:00* Test Item Value Reference Range Interpretation Comments Urine Clarity (test code = 29145-4) CLOUDY CLEAR H [facility] KingwoodUrine Specific Vpivzyc7319-41-18 21:19:00 * Test Item Value Reference Range Interpretation Comments Urine Specific [place] (test code = 5811-5) 1.020 1.010-1.02 5 [facility] KingwoodUrine cA9605-77-97 21:19:00* Test Item Value Reference Range Interpretation Comments Urine pH (test code = 81057-9) 6.5 5-7 [facility]woodUrine Leukocyte Prsisvps1032-88-55 21:19:00* Test Item Value Reference Range Interpretation Comments Urine Leukocyte Esterase (test code = 5799-2) SMALL NEGATIVE [facility]woodUrine Cqgtetq6673-81-67 21:19:00* Test Item Value Reference Range Interpretation Comments Urine Nitrite (test code = 71742-7) NEGATIVE NEGATIVE [facility]woodUrine Fwgnkjy7854-74-47 21:19:00* Test Item Value Reference Range Interpretation Comments Urine Protein (test code = 5804-0) NEGATIVE NEGATIVE [facility] KingwoodUrine Glucose (UA)2019-03-20 21:19:00* Test Item Value Reference Range Interpretation Comments Urine Glucose (UA) (test code = 2349-9) 3+ NEGATIVE H [facility] KingwoodUrine Eiruguv3473-11-96 21:19:00* Test Item Value Reference Range Interpretation Comments Urine Ketones (test code = 46037-3) NEGATIVE NEGATIVE [facility] Byhrixmbvnbt8075-69-48 21:19:00* Test Item Value Reference Range Interpretation Comments Urine Urobilinogen (test code = 15356-2) 0.2 0.2-1 [facility]woodUrine Phhvdrbrr2222-34-63 21:19:00* Test Item Value Reference Range Interpretation Comments Urine Bilirubin (test code = 1978-6) NEGATIVE NEGATIVE [facility] KingwoodUrine Abuep3999-37-19 21:19:00* Test Item Value Reference Range Interpretation Comments Urine Blood (test code = 07044-0) 3+ NEGATIVE [facility]woodABDOMEN-1VIEW (KUB)2019-03-20 21:19:00 [facility] [address] [place] [address] Patient Name: ZAYNAB FLORES MR #: [id number] : 1965 Age/Sex: 54/M Req #: [id number] Adm Physician: Ordered by: NAVARRO CHONG DO Report #: [id number] Location: ER Room/Bed: Procedure: [id number] D X/ABDOMEN-1VIEW (KUB) Exam Date: 03/20/19 Exam [...] 03/20/192122 COPY TO: NAVARRO CHONG DO Bedside Bmwkzfp3701-06-45 06:07:00* Test Item Value Reference Range Interpretation Comments Bedside Glucose (test code = 33985-9) 192 70-120 H Meter ID: [id number] [facility] Glucose 2019-03-19 06:07:00* Test Item Value Reference Range Interpretation Comments Bedside Glucose (test code = 47399-2) 192 70-120 H Meter ID: [id number] [facility] KingwoodCapillary blood glucose measurement by glucometer (mass/volume)2019-03-19 04:38:00* Test Item Value Reference Range Interpretation Comments Bedside Glucose (test code = 58617-0) 192 70-120 Meter ID: [id number] [facility]ann [facility] Hospital KingwoodCapillary blood glucose measurement by glucometer (mass/volume)2019-03-19 04:38:00* Test Item Value Reference Range Interpretation Comments Bedside Glucose (test code = 97741-7) 192 70-120 Meter ID: [id number] [facility] KingwoodUrine Culture 2019-02-18 06:23:00* Test Item Value Reference Range Interpretation Comments Urine Culture (test code = 630-4) No Result Data Provided [facility] KingwoodUrine Qkufbye5444-46-72 06:23:00* Test Item Value Reference Range Interpretation Comments Urine Culture (test code = 630-4) No Result Data Provided [facility] KingwoodUrine Zajvcqh2339-49-38 06:23:00* Test Item Value Reference Range Interpretation Comments Urine Culture (test code = 630-4) No Result Data Provided [facility] Tgtgz1973-03-31 06:22:00* Test Item Value Reference Range Interpretation Comments Sodium Level (test code = 2951-2) 136 136-145 [facility] KingwoodPotassium Aboaa2164-96-05 06:22:00* Test Item Value Reference Range Interpretation Comments Potassium Level (test code = 2823-3) 3.9 3.5-5.1 [facility] KingwoodChloride Cxhfv2589-49-03 06:22:00* Test Item Value Reference Range Interpretation Comments Chloride Level (test code = 2075-0) 104 98-107 [facility] KingwoodCarbon Dioxide Cbuaf5158-42-80 06:22:00* Test Item Value Reference Range Interpretation Comments Carbon Dioxide Level (test code = 2028-9) 21 22-29 L [facility] KingwoodAnion Kgq5476-37-75 06:22:00* Test Item Value Reference Range Interpretation Comments Anion Gap (test code = 19722-7) 14.9 8-16 [facility] KingwoodBlood Urea Kntqnunn1608-93-62 06:22:00* Test Item Value Reference Range Interpretation Comments Blood Urea Nitrogen (test code = 3094-0) 22 7-26 [facility] KingwoodCreatinine2019-12-12 06:22:00* Test Item Value Reference Range Interpretation Comments Creatinine (test code = 2160-0) 1.72 0.72-1.25 H [facility] KingwoodBUN/Creatinine Ibxkf7942-78-66 06:22:00* Test Item Value Reference Range Interpretation Comments BUN/Creatinine Ratio (test code = 3097-3) 13 6-25 [facility] KingwoodEstimat Glomerular Filtration Rate 2019-02-18 06:22:00* Test Item Value Reference Range Interpretation Comments Estimat Glomerular Filtration Rate (test code = 262321018) 41 >60 L Ranges were taken from the National Kidney Disease Education Program and the [facility] literature.Reference ranges:60 or greater: Sfipiw15-22 ( for 3 consecutive months): Chronic kidney disease 15 or less: Kidney failureMemorial Hermann Surgical Hospital KingwoodGlucose Hkwao1780-79-35 06:22:00* Test Item Value Reference Range Interpretation Comments Glucose Level (test code = TFG1920) 188 74-118 H [facility] KingwoodCalcium Jfpso3996-79-66 06:22:00* Test Item Value Reference Range Interpretation Comments Calcium Level (test code = 98841-0) 9.1 8.4-10.2 [facility] KingwoodWhite Blood Uffmz8486-82-79 05:47:00* Test Item Value Reference Range Interpretation Comments White Blood Count (test code = 6690-2) 16.24 4.8-10.8 H [facility] KingwoodRed Blood Fuucs7002-86-12 05:47:00* Test Item Value Reference Range Interpretation Comments Red Blood Count (test code = 789-8) 4.45 4.3-5.7 [facility] KingwoodHemoglobin2019-12-12 05:47:00* Test Item Value Reference Range Interpretation Comments Hemoglobin (test code = 93554-4) 12.0 14.0-18.0 L [facility] KingwoodHematocrit2019-12-12 05:47:00* Test Item Value Reference Range Interpretation Comments Hematocrit (test code = 4544-3) 38.4 38.2-49.6 [facility] KingwoodMean Corpuscular Jwctvb1444-51-61 05:47:00* Test Item Value Reference Range Interpretation Comments Mean Corpuscular Volume (test code = 787-2) 86.3 81-99 [facility] KingwoodMean Corpuscular Cmaiobcqvo8304-37-01 05:47:00* Test Item Value Reference Range Interpretation Comments Mean Corpuscular Hemoglobin (test code = 785-6) 27.0 28-32 L [facility] KingwoodMean Corpuscular Hemoglobin Concent 2019-02-18 05:47:00* Test Item Value Reference Range Interpretation Comments Mean Corpuscular Hemoglobin Concent (test code = 786-4) 31.3 31-35 [facility] KingwoodRed Cell Distribution Fqeux8309-96-49 05:47:00* Test Item Value Reference Range Interpretation Comments Red Cell Distribution Width (test code = 86428-1) 15.0 11.7 -14.4 H [facility] KingwoodPlatelet Rxqdl8640-99-48 05:47:00* Test Item Value Reference Range Interpretation Comments Platelet Count (test code = 777-3) 184 140-360 [facility] KingwoodNeutrophils (%) (Auto)2019-02-18 05:47:00 * Test Item Value Reference Range Interpretation Comments Neutrophils (%) (Auto) (test code = 20371-3) 84.7 38.7-80.0 H [facility] KingwoodLymphocytes (%) (Auto)2019-02-18 05:47:00 * Test Item Value Reference Range Interpretation Comments Lymphocytes (%) (Auto) (test code = 736-9) 5.5 18.0-39.1 L [facility] KingwoodMonocytes (%) (Auto)2019-02-18 05:47:00* Test Item Value Reference Range Interpretation Comments Monocytes (%) (Auto) (test code = 5905-5) 7.9 4.4-11.3 [facility] KingwoodEosinophils (%) (Auto)2019-02-18 05:47:00 * Test Item Value Reference Range Interpretation Comments Eosinophils (%) (Auto) (test code = 713-8) 1.2 0.0-6.0 [facility] KingwoodBasophils (%) (Auto)2019-02-18 05:47:00* Test Item Value Reference Range Interpretation Comments Basophils (%) (Auto) (test code = 706-2) 0.1 0.0-1.0 [facility] KingwoodIM GRANULOCYTES %2019-02-18 05:47:00* Test Item Value Reference Range Interpretation Comments IM GRANULOCYTES % (test code = IM GRANULOCYTES %) 0.6 0.0- 1.0 [facility] KingwoodNeutrophils # (Auto)2019-02-18 05:47:00* Test Item Value Reference Range Interpretation Comments Neutrophils # (Auto) (test code = 751-8) 13.7 2.1-6.9 H [facility] KingwoodLymphocytes # (Auto)2019-02-18 05:47:00* Test Item Value Reference Range Interpretation Comments Lymphocytes # (Auto) (test code = 05359-0) 0.9 1.0-3.2 L [facility] KingwoodMonocytes # (Auto)2019-02-18 05:47:00* Test Item Value Reference Range Interpretation Comments Monocytes # (Auto) (test code = 742-7) 1.3 0.2-0.8 H [facility] KingwoodEosinophils # (Auto)2019-02-18 05:47:00* Test Item Value Reference Range Interpretation Comments Eosinophils # (Auto) (test code = 711-2) 0.2 0.0-0.4 [facility] KingwoodBasophils # (Auto)2019-02-18 05:47:00* Test Item Value Reference Range Interpretation Comments Basophils # (Auto) (test code = 704-7) 0.0 0.0-0.1 [facility] KingwoodAbsolute Immature Granulocyte (auto 2019-02-18 05:47:00* Test Item Value Reference Range Interpretation Comments Absolute Immature Granulocyte (auto (chel t code = Absolute Immature Granulocyte (auto) 0.10 0-0.1 [facility] KingwoodBedside Puvipum5252-11-05 22:52:00* Test Item Value Reference Range Interpretation Comments Bedside Glucose (test code = 08998-9) 246 70-120 H Meter ID: [id number]. Luke's Health [facility] Medical CenterTotal Bilirubin 2019-02-17 06:35:00* Test Item Value Reference Range Interpretation Comments Total Bilirubin (test code = 1975-2) 1.5 0.2-1.2 H [facility] KingwoodAspartate Amino Transf (AST/SGOT) 2019-02-17 06:35:00* Test Item Value Reference Range Interpretation Comments Aspartate Amino Transf (AST/SGOT) (test code = Aspartate Amino Transf (AST/SGOT)) 18 5-34 [facility] KingwoodAlanine Aminotransferase (ALT/SGPT) 2019-02-17 06:35:00* Test Item Value Reference Range Interpretation Comments Alanine Aminotransferase (ALT/SGPT) (test code = 1742-6) 20 0-55 [facility] KingwoodTotal Olwbhkh3621-64-20 06:35:00* Test Item Value Reference Range Interpretation Comments Total Protein (test code = 2885-2) 6.8 6.5-8.1 [facility] KingwoodAlbumin2019-12-11 06:35:00* Test Item Value Reference Range Interpretation Comments Albumin (test code = 1751-7) 3.7 3.5-5.0 [facility] KingwoodGlobulin2019-12-11 06:35:00* Test Item Value Reference Range Interpretation Comments Globulin (test code = 47851-2) 3.1 2.3-3.5 [facility] KingwoodAlbumin/Globulin Ntbuh5674-39-95 06:35:00 * Test Item Value Reference Range Interpretation Comments Albumin/Globulin Ratio (test code = 1759-0) 1.2 0.8-2.0 [facility] KingwoodAlkaline Jllvynfyyby0034-24-14 06:35:00* Test Item Value Reference Range Interpretation Comments Alkaline Phosphatase (test code = 6768-6) 77 40-150 [facility] KingwoodUrine YRT7205-25-40 14:30:00* Test Item Value Reference Range Interpretation Comments Urine WBC (test code = 5821-4) 21-50 0-5 H [facility] KingwoodUrine CVC8508-55-17 14:30:00* Test Item Value Reference Range Interpretation Comments Urine RBC (test code = 99189-9) 11-20 0-5 H [facility] KingwoodUrine Sznaldoe3969-39-20 14:30:00* Test Item Value Reference Range Interpretation Comments Urine Bacteria (test code = 02064-2) RARE NONE [facility] KingwoodUrine Epithelial Qjtbb5002-02-39 14:30:00 * Test Item Value Reference Range Interpretation Comments Urine Epithelial Cells (test code = 05265-4) NONE NONE [facility] KingwoodUrine Qceeg9587-91-59 14:09:00* Test Item Value Reference Range Interpretation Comments Urine Color (test code = 5778-6) YELLOW YELLOW [facility] KingwoodUrine Wcsgvkx5144-34-04 14:09:00* Test Item Value Reference Range Interpretation Comments Urine Clarity (test code = 71611-9) SL CLOUDY CLEAR H [facility] KingwoodUrine Specific Rbremlx5016-04-46 14:09:00 * Test Item Value Reference Range Interpretation Comments Urine Specific [place] (test code = 5811-5) 1.010 1.010-1.02 5 [facility] KingwoodUrine mM3957-74-54 14:09:00* Test Item Value Reference Range Interpretation Comments Urine pH (test code = 14454-0) 6 5-7 [facility] KingwoodUrine Leukocyte Kzanbjwv4800-95-45 14:09:00* Test Item Value Reference Range Interpretation Comments Urine Leukocyte Esterase (test code = 5799-2) NEGATIVE NEGATIVE [facility] KingwoodUrine Jdrvned2851-41-25 14:09:00* Test Item Value Reference Range Interpretation Comments Urine Nitrite (test code = 18831-9) NEGATIVE NEGATIVE [facility] KingwoodUrine Uwlxszw0727-04-70 14:09:00* Test Item Value Reference Range Interpretation Comments Urine Protein (test code = 5804-0) TRACE NEGATIVE H [facility] KingwoodUrine Glucose (UA)2019-02-16 14:09:00* Test Item Value Reference Range Interpretation Comments Urine Glucose (UA) (test code = 2349-9) 3+ NEGATIVE H [facility] KingwoodUrine Kebbdlo6214-36-88 14:09:00* Test Item Value Reference Range Interpretation Comments Urine Ketones (test code = 00166-3) NEGATIVE NEGATIVE [facility] KingwoodUrine Fklvjfkqespw0792-95-40 14:09:00* Test Item Value Reference Range Interpretation Comments Urine Urobilinogen (test code = 67099-6) 0.2 0.2-1 [facility] KingwoodUrine Uuxlrgaxr2943-59-69 14:09:00* Test Item Value Reference Range Interpretation Comments Urine Bilirubin (test code = 1978-6) NEGATIVE NEGATIVE [facility] KingwoodUrine Djsns3684-25-71 14:09:00* Test Item Value Reference Range Interpretation Comments Urine Blood (test code = 24911-1) MODERATE NEGATIVE [facility] KingwoodCT ABDOMEN/PELVIS AE5456-03-43 13:44:00 [facility] [address] [place] [address] Patient Name: ZAYNAB FLORES MR #: [id number] : 1965 Age/Sex: 54/M Req #: [id number] Adm Physician: Ordered by: ADELA BENDER, DOMENIC BENDER Report #: [id number] Location: ER Room/Bed: Procedure: 1210-[address]/CT ABDOMEN/PELVIS WO Exam Date: 02/16/19 Exam Time: 1250 REPORT STATUS: Signed TECHNIQUE: CT of the abdomen and pelvis WITHOUT intravenous contrast and wit hout oral contrast. Dose modulation, iterative reconstruction, and/or weight-b ased adjustment of the mA/kV was utilized to reduce the radiation dose to as l ow as reasonably achievable. INDICATION: STONE PROTOCOL [id number] 1250 Y. COMPARISON: CT from 07/08/2017. FINDINGS: [...] 1:58 PM Dictated By: DANYELLE MCDONALD MD [id number] T ranscribed By: MICHEAL on 02/16/19 3566 COPY TO: DOMENIC CHAPMAN Magnesium Aebda8764-03-91 13:31:00* Test Item Value Reference Range Interpretation Comments Magnesium Level (test code = 18064-7) 1.8 1.3-2.1 [facility] KingwoodLipase2019-12-10 13:31:00* Test Item Value Reference Range Interpretation Comments Lipase (test code = 3040-3) 47 8-78 [facility] KingwoodMagnesium Rdvjk4618-81-24 13:31:00* Test Item Value Reference Range Interpretation Comments Magnesium Level (test code = 38419-3) 1.8 1.3-2.1 [facility] KingwoodLipase2019-12-10 13:31:00* Test Item Value Reference Range Interpretation Comments Lipase (test code = 3040-3) 47 [facility] KingwoodMagnesium Xzdis3282-37-66 13:31:00* Test Item Value Reference Range Interpretation Comments Magnesium Level (test code = 03053-6) 1.8 1.3-2.1 [facility] 13:31:00* Test Item Value Reference Range Interpretation Comments Lipase (test code = 3040-3) [address] (KU)2019-02-15 10:51:00 [place] [address] Patient Name: ZAYNAB FLORES MR #: [id number] : 1965 Age/Sex: 54/M Req #: [id number] Adm Physician: Ordered by: CARLOS COX MD Report #: [id number] Location: [facility] Room/Bed: Procedure: DX/ABDOMEN-1VIEW (KUB) Exam Date: 02/15/19 Exam Jerry [...] O: CARLOS COX MD ABDOMEN-1VIEW (KUB)2018-11-27 11:39:00 [place] [address] Patient Name: ZAYNAB FLORES MR #: [id number] : 1965 Age/Sex: 53/M Req #: [id number] Adm Physician: Ordered by: CARLOS COX MD Report #: [id number] Location: [facility] Room/Bed: Procedure: DX/ABDOMEN-1VIEW (KUB) Exam Date: 11/27/18 Exam Jerry [...] 1143 COPY TO: CARLOS COX MD Blood Kotxrxe0426-66-43 21:14:00* Test Item Value Reference Range Interpretation Comments Blood Culture (test code = 49133547) NO GROWTH AFTER 5 DAYS, FINAL REPORT [facility] Vfnltwt4200-13-88 21:14:00* Test Item Value Reference Range Interpretation Comments Blood Culture (test code = 59060697) NO GROWTH AFTER 5 DAYS, FINAL REPORT [facility] Yggharj4920-13-72 21:14:00* Test Item Value Reference Range Interpretation Comments Blood Culture (test code = 88736962) NO GROWTH AFTER 5 DAYS, FINAL REPORT [facility] KingwoodUrine Lofdlyn3399-43-20 08:06:00* Test Item Value Reference Range Interpretation Comments Urine Culture (test code = 630-4) No Result Data Provided [facility] KingwoodUrine Oaopyoq0677-68-02 08:06:00* Test Item Value Reference Range Interpretation Comments Urine Culture (test code = 630-4) No Result Data Provided [facility] KingwoodUrine Lyjwdqt0357-84-44 08:06:00* Test Item Value Reference Range Interpretation Comments Urine Culture (test code = 630-4) No Result Data Provided [facility] KingwoodBedside Zxlubnz6544-20-35 11:54:00* Test Item Value Reference Range Interpretation Comments Bedside Glucose (test code = 93442-7) 126 70-120 H Meter ID: [id number] [facility] Health System McAllenodium Level 2018-09-03 11:47:00* Test Item Value Reference Range Interpretation Comments Sodium Level (test code = 2951-2) 136 136-145 [facility] KingwoodPotassium Vazki4132-93-98 11:47:00* Test Item Value Reference Range Interpretation Comments Potassium Level (test code = 2823-3) 3.5 3.5-5.1 [facility] KingwoodChloride Jfdhs3450-44-99 11:47:00* Test Item Value Reference Range Interpretation Comments Chloride Level (test code = 2075-0) 107 98-107 [facility] KingwoodCarbon Dioxide Nbggh6797-61-40 11:47:00* Test Item Value Reference Range Interpretation Comments Carbon Dioxide Level (test code = 2028-9) 21 22-29 L [facility] KingwoodAnion Pdm1507-29-53 11:47:00* Test Item Value Reference Range Interpretation Comments Anion Gap (test code = 52864-4) 11.5 8-16 [facility] KingwoodBlood Urea Lrqvxbov8047-27-82 11:47:00* Test Item Value Reference Range Interpretation Comments Blood Urea Nitrogen (test code = 3094-0) 9 7-26 [facility] KingwoodCreatinine2019-06-27 11:47:00* Test Item Value Reference Range Interpretation Comments Creatinine (test code = 2160-0) 0.91 0.72-1.25 [facility] KingwoodBUN/Creatinine Mtnem2551-60-54 11:47:00* Test Item Value Reference Range Interpretation Comments BUN/Creatinine Ratio (test code = 3097-3) 10 6-25 [facility] KingwoodEstimat Glomerular Filtration Rate 2018-09-03 11:47:00* Test Item Value Reference Range Interpretation Comments Estimat Glomerular Filtration Rate (test code = 941331348) > 60 >60 Ranges were taken from the National Kidney Disease Education Program and the [facility] literature.Reference ranges:60 or greater: Atqgox33-85 ( for 3 consecutive months): Chronic kidney disease 15 or less: Kidney failureMemorial Hermann Surgical Hospital KingwoodGlucose Gvcjk4603-24-75 11:47:00* Test Item Value Reference Range Interpretation Comments Glucose Level (test code = EQZ5659) 144 74-118 H [facility] KingwoodCalcium Spohk1981-78-11 11:47:00* Test Item Value Reference Range Interpretation Comments Calcium Level (test code = 73246-8) 9.1 8.4-10.2 [facility] KingwoodUrine Tgoibbo0529-82-22 09:48:00* Test Item Value Reference Range Interpretation Comments Urine Culture (test code = 630-4) Organism: YEAST SPECIES [facility] KingwoodCHEST 2 KZXVF1443-60-60 06:05:00 [facility] [address] [place] [address] Patient Name: ZAYNAB FLORES MR #: [id number] : 1965 Age/Sex: 53/M Req #: [id number] Adm Physician: LIVAN CASTANEDA MD Ordered by: LIVAN CASTANEDA MD Report #: [id number] Location: MED/SURG2 [place] [facility] [place] Procedure: 02 DX/CHEST 2 VIEWS Exam Date: [...] Interpretation Comments Blood Culture (test code = 55038724) NO GROWTH AFTER 24 HOURS [facility] KingwoodTotal Vnqmavwsx4586-63-92 05:50:00* Test Item Value Reference Range Interpretation Comments Total Bilirubin (test code = 1975-2) 1.7 0.2-1.2 H [facility] KingwoodAspartate Amino Transf (AST/SGOT) 2018-09-02 05:50:00* Test Item Value Reference Range Interpretation Comments Aspartate Amino Transf (AST/SGOT) (test code = Aspartate Amino Transf (AST/SGOT)) 18 5-34 [facility] KingwoodAlanine Aminotransferase (ALT/SGPT) 2018-09-02 05:50:00* Test Item Value Reference Range Interpretation Comments Alanine Aminotransferase (ALT/SGPT) (test code = 1742-6) 26 0-55 [facility] KingwoodTotal Vlgxqih3253-07-58 05:50:00* Test Item Value Reference Range Interpretation Comments Total Protein (test code = 2885-2) 6.8 6.5-8.1 [facility] KingwoodAlbumin2019-06-26 05:50:00* Test Item Value Reference Range Interpretation Comments Albumin (test code = 1751-7) 3.5 3.5-5.0 [facility] KingwoodGlobulin2019-06-26 05:50:00* Test Item Value Reference Range Interpretation Comments Globulin (test code = 91208-1) 3.3 2.3-3.5 [facility] KingwoodAlbumin/Globulin Fbezt8662-89-63 05:50:00 * Test Item Value Reference Range Interpretation Comments Albumin/Globulin Ratio (test code = 1759-0) 1.1 0.8-2.0 [facility] KingwoodAlkaline Gmebrdsggsj3348-09-68 05:50:00* Test Item Value Reference Range Interpretation Comments Alkaline Phosphatase (test code = 6768-6) 76 40-150 [facility] KingwoodWhite Blood Iogzq9273-92-33 05:36:00* Test Item Value Reference Range Interpretation Comments White Blood Count (test code = 6690-2) 13.57 4.8-10.8 H [facility] KingwoodRed Blood Mjijm0547-02-61 05:36:00* Test Item Value Reference Range Interpretation Comments Red Blood Count (test code = 789-8) 4.37 4.3-5.7 [facility] KingwoodHemoglobin2019-06-26 05:36:00* Test Item Value Reference Range Interpretation Comments Hemoglobin (test code = 91443-3) 11.4 14.0-18.0 L [facility] KingwoodHematocrit2019-06-26 05:36:00* Test Item Value Reference Range Interpretation Comments Hematocrit (test code = 4544-3) 35.2 38.2-49.6 L [facility] KingwoodMean Corpuscular Bmljha0985-65-72 05:36:00* Test Item Value Reference Range Interpretation Comments Mean Corpuscular Volume (test code = 787-2) 80.5 81-99 L [facility] KingwoodMean Corpuscular Apmuxhtser4519-99-09 05:36:00* Test Item Value Reference Range Interpretation Comments Mean Corpuscular Hemoglobin (test code = 785-6) 26.1 28-32 L [facility] KingwoodMean Corpuscular Hemoglobin Concent 2018-09-02 05:36:00* Test Item Value Reference Range Interpretation Comments Mean Corpuscular Hemoglobin Concent (test code = 786-4) 32.4 31-35 [facility] KingwoodRed Cell Distribution Gziak2570-21-58 05:36:00* Test Item Value Reference Range Interpretation Comments Red Cell Distribution Width (test code = 83979-1) 15.4 11.7 -14.4 H [facility] KingwoodPlatelet Wixtd1975-34-29 05:36:00* Test Item Value Reference Range Interpretation Comments Platelet Count (test code = 777-3) 244 140-360 [facility] KingwoodNeutrophils (%) (Auto)2018-09-02 05:36:00 * Test Item Value Reference Range Interpretation Comments Neutrophils (%) (Auto) (test code = 35667-1) 67.5 38.7-80.0 [facility] KingwoodLymphocytes (%) (Auto)2018-09-02 05:36:00 * Test Item Value Reference Range Interpretation Comments Lymphocytes (%) (Auto) (test code = 736-9) 19.0 18.0-39.1 [facility] KingwoodMonocytes (%) (Auto)2018-09-02 05:36:00* Test Item Value Reference Range Interpretation Comments Monocytes (%) (Auto) (test code = 5905-5) 10.2 4.4-11.3 [facility]woodEosinophils (%) (Auto)2018-09-02 05:36:00 * Test Item Value Reference Range Interpretation Comments Eosinophils (%) (Auto) (test code = 713-8) 2.5 0.0-6.0 [facility] KingwoodBasophils (%) (Auto)2018-09-02 05:36:00* Test Item Value Reference Range Interpretation Comments Basophils (%) (Auto) (test code = 706-2) 0.4 0.0-1.0 [facility] KingwoodIM GRANULOCYTES %2018-09-02 05:36:00* Test Item Value Reference Range Interpretation Comments IM GRANULOCYTES % (test code = IM GRANULOCYTES %) 0.4 0.0- 1.0 [facility] KingwoodNeutrophils # (Auto)2018-09-02 05:36:00* Test Item Value Reference Range Interpretation Comments Neutrophils # (Auto) (test code = 751-8) 9.2 2.1-6.9 H [facility] KingwoodLymphocytes # (Auto)2018-09-02 05:36:00* Test Item Value Reference Range Interpretation Comments Lymphocytes # (Auto) (test code = 22760-3) 2.6 1.0-3.2 [facility] KingwoodMonocytes # (Auto)2018-09-02 05:36:00* Test Item Value Reference Range Interpretation Comments Monocytes # (Auto) (test code = 742-7) 1.4 0.2-0.8 H [facility] KingwoodEosinophils # (Auto)2018-09-02 05:36:00* Test Item Value Reference Range Interpretation Comments Eosinophils # (Auto) (test code = 711-2) 0.3 0.0-0.4 [facility] KingwoodBasophils # (Auto)2018-09-02 05:36:00* Test Item Value Reference Range Interpretation Comments Basophils # (Auto) (test code = 704-7) 0.1 0.0-0.1 [facility] KingwoodAbsolute Immature Granulocyte (auto 2018-09-02 05:36:00* Test Item Value Reference Range Interpretation Comments Absolute Immature Granulocyte (auto (chel t code = Absolute Immature Granulocyte (auto) 0.06 0-0.1 [facility] KingwoodLactic Acid Vthej6977-18-78 01:40:00* Test Item Value Reference Range Interpretation Comments Lactic Acid Level (test code = Lactic Acid Level) 19.0 4.5- 19.8 [facility] KingwoodLactic Acid Dmlfa7688-82-02 01:40:00* Test Item Value Reference Range Interpretation Comments Lactic Acid Level (test code = Lactic Acid Level) 19.0 4.5- 19.8 [facility] KingwoodLactic Acid Bzlbh5297-04-34 01:40:00* Test Item Value Reference Range Interpretation Comments Lactic Acid Level (test code = Lactic Acid Level) 19.0 4.5- 19.8 [facility] KingwoodLactic Acid Khptt7578-24-16 01:40:00* Test Item Value Reference Range Interpretation Comments Lactic Acid Level (test code = Lactic Acid Level) 19.0 4.5- 19.8 [facility] KingwoodCHEST SINGLE (PORTABLE)2018-09-01 21:42:00 [place] [address] Patient Name: ZAYNAB FLORES MR #: [id number] : 1965 Age/Sex: 53/M Req #: [id number] Adm Physician: Ordered by: PRIYA HUYNH MD Report #: [id number] Location: ER Room/Bed: Procedure: [id number] DX/CHEST [...] 09/01/182145 COPY TO: NITHYA HUYNH MD Urine ZQN8230-41-94 21:38:00* Test Item Value Reference Range Interpretation Comments Urine WBC (test code = 5821-4) >50 0-5 H [facility] KingwoodUrine WFX7269-62-44 21:38:00* Test Item Value Reference Range Interpretation Comments Urine RBC (test code = 28806-0) >50 0-5 H [facility] KingwoodUrine Bgowglmy5991-13-89 21:38:00* Test Item Value Reference Range Interpretation Comments Urine Bacteria (test code = 87791-4) MANY NONE H [facility] KingwoodUrine Epithelial Mmjyu1238-29-57 21:38:00 * Test Item Value Reference Range Interpretation Comments Urine Epithelial Cells (test code = 42026-7) MODERATE NONE [facility] KingwoodUrine Uxldk0214-08-78 21:19:00* Test Item Value Reference Range Interpretation Comments Urine Color (test code = 5778-6) YELLOW YELLOW [facility] KingwoodUrine Omyyhxo0518-21-19 21:19:00* Test Item Value Reference Range Interpretation Comments Urine Clarity (test code = 52221-9) CLOUDY CLEAR H [facility] KingwoodUrine Specific Hcokizx5917-71-02 21:19:00 * Test Item Value Reference Range Interpretation Comments Urine Specific [place] (test code = 5811-5) 1.025 1.010-1.02 5 [facility] KingwoodUrine nJ8156-71-43 21:19:00* Test Item Value Reference Range Interpretation Comments Urine pH (test code = 39962-5) 6 5-7 [facility] KingwoodUrine Leukocyte Acueqptn4021-24-38 21:19:00* Test Item Value Reference Range Interpretation Comments Urine Leukocyte Esterase (test code = 88788-3) SMALL NEGATIV E [facility] KingwoodUrine Stdtnrl5564-40-15 21:19:00* Test Item Value Reference Range Interpretation Comments Urine Nitrite (test code = 50970-2) NEGATIVE NEGATIVE [facility] KingwoodUrine Pglbvrh7066-81-29 21:19:00* Test Item Value Reference Range Interpretation Comments Urine Protein (test code = 96743-7) 2+ NEGATIVE H [facility] KingwoodUrine Glucose (UA)2018-09-01 21:19:00* Test Item Value Reference Range Interpretation Comments Urine Glucose (UA) (test code = 55597-1) 3+ NEGATIVE [facility] KingwoodUrine Fdyekqv6913-52-08 21:19:00* Test Item Value Reference Range Interpretation Comments Urine Ketones (test code = 30801-1) NEGATIVE NEGATIVE [facility] KingwoodUrine Jxulsmqogkss8473-22-05 21:19:00* Test Item Value Reference Range Interpretation Comments Urine Urobilinogen (test code = 35628-6) 0.2 0.2-1 [facility] KingwoodUrine Njozsucss3260-77-47 21:19:00* Test Item Value Reference Range Interpretation Comments Urine Bilirubin (test code = 1977-8) NEGATIVE NEGATIVE [facility] KingwoodUrine Idmfe5498-23-01 21:19:00* Test Item Value Reference Range Interpretation Comments Urine Blood (test code = 38439-9) 3+ NEGATIVE [facility] KingwoodNEPHROSTOMY CATHETER OIGFXIQE0790-00-28 12:48:00 [facility] [address] [address] Patient Name: ZAYNAB FLORES MR #: [id number] : 1965 Age/Sex: 53/M Req #: [id number] Adm Physician: Ordered by: CARLOS COX MD Report #: [id number] Location: OR Room/Bed: Procedure: [id number] DX/NEPHROSTOMY CATHETER EXCHANGE Exam Date: Exam T [...] over a 0.035 " J-wire. A 5 Nepalese Kumpe catheter was then advanced over the wire and utilizing a 0.035" hydrophilic Glidewire the wire and cathet er was advanced into the bladder. An Amplatz 0.035 " superstiff wire was advan elysia into the bladder through the Kumpe catheter for firm control. A 10.2 Nepalese 26 cm long nephroureteral stent was then [...] stent with appropriate placement. Signed by: Dr. 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 A 5 Nepalese Kumpe catheter was then advanced over the wire and utilizing a 0.035" hydrophilic Glidewire the wire and cathet er was advanced into the bladder. An Amplatz 0.035 " superstiff wire was advan elysia into the bladder through the Kumpe catheter for firm control. A 10.2 Nepalese 26 cm long nephroureteral stent was then [...] 1:02 PM Dictated By: LIV JOHNSTON DO 6776 Transcribed By: MICHEAL on 09/09/18 1620 COPY TO: CARLOS COX MD - NEPH CATH XZLWSJMY9873-76-57 16:18:00 Name: ZAYNAB FLORES [facility] : 1965 Age/S: 53 / M [address] Unit #: [id number] Loc: [place] [address] Phys: Jose Berger MD Acct: [id number] Di s Date: Status: [facility] PHONE #: Exam Date: 08/12/2018 1051 FAX #: Reason: EXAMS: CPT CODE: [id number] NEPH CATH EXCHA NGE 97647 Fluoro Time: 72 DAP (Gy m2 ): [...] pulse oximetry were continuously monitored by a [facility] registered nurse. Physician zqfo-lj-lvrf sedation time was 11 minut . After [...] and was replaced with a new 12 Nepalese pigtail nephrostomy tube. This tube was coiled within the renal pelvis, was sutured to the skin and connected to a drainage bag. No complications. IMPRESSION: 1. Successful replacement of a right-sided nephrostomy tube using fluorosco pic guidance. 2. Nonobstructing stone within a lower calyx. 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 3. Decompressed, no ndilated right renal collecting system and unremarkable right ureter. Fluoroscopy Time: 72 sec CAK : 21 mGy DAP : 3. 85 mGy sq cm PAGE 1 Signed Report (CONTINUED) Name: ZAYNAB FLORES [facility] : 1965 Age/S: 53 / M [address] [facility] Unit #: [id number] Loc: [place] [address] Phys: Rob Berger MD Acct: [id number] Dis Date: Status: [facility] PHONE #: [phone] Exam Date: 08/12/2018 1051 FAX #: [phone] Reason: EXAMS: CPT CODE: [id number] NEPH CATH EXCHANGE 78784 Fluoro Time: 72 DAP (Gy m2): 3.85 Air Kerma (mGy): 21 <Continued> at 1618 Reported and signed by: Rob Berger M.D. CC: Faina Guerrero DO; George Choudhary MD Technologist: JIMBO VALVERDE RT(R) Trnscb Date/Time: 08/17/2018 (1618) t.GRW Orig Print D/T: S: 08/17/2018 (1621) PAGE 2 Signed Report ABDOMEN-1VIEW (KUB)2018-08-13 15:38:00 [place] [address] Patient Name: ZAYNAB FLORES MR #: [id number] : 1965 Age/Sex: 53/M Req #: [id number] Adm Physician: Ordered by: CARLOS COX MD Report #: [id number] Location: OR Room/Bed: Procedure: DX/ ABDOMEN-1VIEW (KUB) Exam Date: 08/13/18 Exam [...] 3:42 PM Dictated By: AMANDA SHELBY MD 1542 Transcribed By: MICHEAL on 08/13/182 COPY TO: CARLOS COX MD GLUBED 2018-08-12 09:21:00* Test Item Value Reference Range Interpretation Comments GLUBED (test code = GLUBED) 122 mg/dL 74-106 H Performed by certified crozer operator at [facility] PROTHROMBIN MYZA8150-00-79 15:27:00* Test Item Value Reference Range Interpretation [...] Mechanical prosthetic heart valves (2.5-3.5) THROMBOPLASTIN TIME QCPTBOQ3471-89-19 15:27:00* Test Item Value Reference Range Interpretation Comments THROMBOPLASTIN TIME PARTIAL (test code = PTT) 32.2 seconds 25.0-36. 5 N CBC W/AUTO WGUO6845-77-45 15:19:00* Test Item Value Reference Range Interpretation [...] REQUIRED (test code = MDIFF) NO CHEM VPZVS7331-44-83 22:43:0070[facility]annCHEM SGGRJ1272-72-44 22:43:0016 [facility]annCHEM PQHRS6897-93-25 22:43:001.16[facility] HermannCHEM PANEL 2018-03-13 22:43:94803Allpadzv HermannCHEM WAIMA5849-40-04 22:43:79044Hfhkpnkc HermannCHEM CASAK2346-20-44 22:43:003.8[facility] HermannCHEM ERIUX1387-23-82 22:43:009.0[facility] HermannCHEM SYBZG2034-35-44 22:43:0030Mem[facility] HermannCHEM HARZM2810-17-42 22:43:33601Jkjtmbtu HermannCHEM OPEZN5488-01-37 22:43:009.8 Memorial UzjukdzAMJKFHLZDN0237-01-91 22:43:008.3[facility] HermannHEMATOLOGY 2018-03-13 22:43:0059.7Memorial VzkgdvsVDANFVSWJU9303-47-09 22:43:0028.6[facility] ClpogosXWSSLVOHOW8207-84-31 22:43:002.9[facility]orial VaeajmhSXXDWTUQTC1249-07-00 22:43:000.7[facility]orial LmzdttzJCZSHMMXJZ6092-87-52 22:43:000.3[facility] SAIJIYJRFM1601-99-60 22:43:000.5[facility] IzhumdzLUGLCNLQCV2275-21-20 22:43:005.3 Memorial ZnqkhyzJDJUKSAVTU3071-34-93 22:43:002.6[facility] HermannHEMATOLOGY 2018-03-13 22:43:59431Tcwwywxm CtnhirpCEQICCIQIS4211-00-55 22:43:0015.1[facility]orial SrmfddjZRREYDBNTF2623-98-53 22:43:008.8[facility] DbhihcjOLRHHURRKL9960-66-97 22:43:0014.3[facility]orial RfwnmspRSBVDTSDLZ9447-54-93 22:43:008.9[facility] PQLJBDKXUK0700-99-14 22:43:005.11[facility] QhecjjlWXIBUWKRJF9265-41-58 22:43:00 43.2Memorial CtxrgnnJLBEQPSBCI7799-67-66 22:43:0033.1[facility]annHEMATOLOGY 2018-03-13 22:43:00* Test Item Value Reference Range Interpretation Comments MCH (test code = MCH) 28.0 pg 27.0-31.0 [facility] RrwgntpPVLNDMEWMK8499-79-64 22:43:0084.6[facility] HermannSPECIAL NKMNPZDBY1776-76-95 22:43:007.8[facility] HermannABDOMEN-1VIEW (KUB)2018-01-06 09:00:00 [place] [address] Patient Name: ZAYNAB FLORES MR #: [id number] : 1965 Age/Sex: 52/M Req #: [id number] Adm Physician: Ordered by: CARLOS COX MD Report #: [id number] Location: OR Room/Bed: Procedure: [id number] DX/ ABDOMEN-1VIEW (KUB) Exam Date: 01/06/18 Exam [...] 01/06/18902 COPY TO: CARLOS COX MD Bedside Qxfhqse2092-30-85 07:49:00* Test Item Value Reference Range Interpretation Comments Bedside Glucose (test code = 68390-4) 161 70-120 H Meter ID: [id number] Hermann Surgical Hospital KingwoodBlood Urea Nitrogen 2018-01-05 10:36:00* Test Item Value Reference Range Interpretation Comments Blood Urea Nitrogen (test code = 3094-0) 18 7-26 [facility] KingwoodBUN/Creatinine Vaqmg7280-97-68 10:36:00* Test Item Value Reference Range Interpretation Comments BUN/Creatinine Ratio (test code = 3097-3) 17 6-25 [facility] McAllenodium Ikcoy4968-25-88 10:23:00* Test Item Value Reference Range Interpretation Comments Sodium Level (test code = 2951-2) 141 136-145 [facility] KingwoodPotassium Bdhxw7001-21-91 10:23:00* Test Item Value Reference Range Interpretation Comments Potassium Level (test code = 2823-3) 3.6 3.5-5.1 [facility] KingwoodChloride Nwjuf9766-44-19 10:23:00* Test Item Value Reference Range Interpretation Comments Chloride Level (test code = 2075-0) 107 98-107 [facility] KingwoodCarbon Dioxide Hxyek6884-88-88 10:23:00* Test Item Value Reference Range Interpretation Comments Carbon Dioxide Level (test code = 2028-9) 24 22-29 [facility] KingwoodAnion God8915-25-22 10:23:00* Test Item Value Reference Range Interpretation Comments Anion Gap (test code = 91297-1) 13.6 8-16 [facility] KingwoodCreatinine2018-10-29 10:23:00* Test Item Value Reference Range Interpretation Comments Creatinine (test code = 2160-0) 1.04 0.72-1.25 [facility] KingwoodEstimat Glomerular Filtration Rate 2018-01-05 10:23:00* Test Item Value Reference Range Interpretation Comments Estimat Glomerular Filtration Rate (test code = 906732111) > 60 >60 Ranges were taken from the National Kidney Disease Education Program and the [facility] Foundation literature.Reference ranges:60 or greater: Tfyhva20-68 ( for 3 consecutive months): Chronic kidney disease 15 or less: Kidney failureMemorial Hermann Surgical Hospital KingwoodGlucose Afdzx0661-46-35 10:23:00* Test Item Value Reference Range Interpretation Comments Glucose Level (test code = EBN2968) 154 74-118 H [facility] KingwoodCalcium Hrggy4462-47-41 10:23:00* Test Item Value Reference Range Interpretation Comments Calcium Level (test code = 93250-3) 9.5 8.4-10.2 [facility] KingwoodABDOMEN-1VIEW (KUB)2017-09-26 12:30:00 [place] [address] Patient Name: ZAYNAB FLORES MR #: [id number] : 1 04/03/1964 Age/Sex: 52/M Req #: [id number] Adm Physician: Ordered by: CARLOS COX MD Report #: [id number] Location: [facility] Room/Be d: Procedure: DX/ABDOMEN-1VIEW (KUB) Exam Date: 09/26/17 Exam Time: [...] TO: CARLOS COX MD ABDOMEN-1VIEW (KUB)2017-09-02 06:32:00 [place] [address] Patient Name: ZAYNAB FLORES MR #: [id number] : 1965 Age/Sex: 52/M Req #: [id number] Adm Physician: Ordered by: CARLOS COX MD Report #: [id number] Location: OR Room/Bed: Procedure: [id number] DX/ABDOMEN-1VIEW (KUB) Exam D ate: Exam Time: REPORT STATUS: Signed EXAM : ABDOMEN-1VIEW (KUB) DATE: 09/02/2017 6:05 AM Time stamp on exam: 603 exam INDICATION: Renal stones COMPARISON: July 09, [...] 09/02/17635 COPY TO: CARLOS COX MD Bedside Tskwsos7395-07-20 12:01:00* Test Item Value Reference Range Interpretation Comments Bedside Glucose (test code = 78226-3) 172 70-120 H Meter ID: [id number] [facility] System McAllenodium Level 2017-07-09 07:18:00* Test Item Value Reference Range Interpretation Comments Sodium Level (test code = 2951-2) 139 136-145 [facility] KingwoodPotassium Cfyzz8025-20-44 07:18:00* Test Item Value Reference Range Interpretation Comments Potassium Level (test code = 2823-3) 3.7 3.5-5.1 [facility] KingwoodChloride Ysnog8002-76-40 07:18:00* Test Item Value Reference Range Interpretation Comments Chloride Level (test code = 2075-0) 108 98-107 H [facility] KingwoodCarbon Dioxide Ihjvs9883-88-13 07:18:00* Test Item Value Reference Range Interpretation Comments Carbon Dioxide Level (test code = 2028-9) 22 22-29 [facility] KingwoodAnion Vuq6604-87-05 07:18:00* Test Item Value Reference Range Interpretation Comments Anion Gap (test code = 86281-6) 12.7 8-16 [facility] KingwoodBlood Urea Xhhfdbdq9316-20-22 07:18:00* Test Item Value Reference Range Interpretation Comments Blood Urea Nitrogen (test code = 3094-0) 18 7-26 [facility] KingwoodCreatinine2018-05-02 07:18:00* Test Item Value Reference Range Interpretation Comments Creatinine (test code = 2160-0) 1.46 0.72-1.25 H [facility] KingwoodBUN/Creatinine Faqbc4091-41-00 07:18:00* Test Item Value Reference Range Interpretation Comments BUN/Creatinine Ratio (test code = 3097-3) 12 6-25 [facility] KingwoodEstimat Glomerular Filtration Rate 2017-07-09 07:18:00* Test Item Value Reference Range Interpretation Comments Estimat Glomerular Filtration Rate (test code = 00595-1) 50 >60 L Ranges were taken from the National Kidney Disease Education Program and the [facility] Foundation literature.Reference ranges:60 or greater: Nffxyg37-74 ( for 3 consecutive months): Chronic kidney disease 15 or less: Kidney failureMemorial Hermann Surgical Hospital KingwoodGlucose Vaahy5099-75-60 07:18:00* Test Item Value Reference Range Interpretation Comments Glucose Level (test code = YMO3390) 142 74-118 H [facility] KingwoodCalcium Dxlyt4817-49-62 07:18:00* Test Item Value Reference Range Interpretation Comments Calcium Level (test code = 19680-1) 8.5 8.4-10.2 [facility] KingwoodTotal Fmnrwsova2066-64-17 07:18:00* Test Item Value Reference Range Interpretation Comments Total Bilirubin (test code = 1975-2) 1.4 0.2-1.2 H [facility] KingwoodAspartate Amino Transf (AST/SGOT) 2017-07-09 07:18:00* Test Item Value Reference Range Interpretation Comments Aspartate Amino Transf (AST/SGOT) (test code = Aspartate Amino Transf (AST/SGOT)) 19 5-34 [facility] KingwoodAlanine Aminotransferase (ALT/SGPT) 2017-07-09 07:18:00* Test Item Value Reference Range Interpretation Comments Alanine Aminotransferase (ALT/SGPT) (test code = 1742-6) 23 0-55 [facility] KingwoodTotal Zdkozey9698-72-17 07:18:00* Test Item Value Reference Range Interpretation Comments Total Protein (test code = 2885-2) 6.4 6.5-8.1 L [facility] KingwoodAlbumin2018-05-02 07:18:00* Test Item Value Reference Range Interpretation Comments Albumin (test code = 1751-7) 3.3 3.5-5.0 L [facility] KingwoodGlobulin2018-05-02 07:18:00* Test Item Value Reference Range Interpretation Comments Globulin (test code = 31422-1) 3.1 2.3-3.5 [facility] KingwoodAlbumin/Globulin Vcfat5936-20-79 07:18:00 * Test Item Value Reference Range Interpretation Comments Albumin/Globulin Ratio (test code = 1759-0) 1.1 0.8-2.0 [facility] KingwoodAlkaline Zwwhpgidoid9394-81-21 07:18:00* Test Item Value Reference Range Interpretation Comments Alkaline Phosphatase (test code = 6768-6) 65 40-150 [facility] KingwoodWhite Blood Ibsxp5668-04-58 06:46:00* Test Item Value Reference Range Interpretation Comments White Blood Count (test code = 6690-2) 7.47 4.8-10.8 [facility] KingwoodRed Blood Cizww0821-56-13 06:46:00* Test Item Value Reference Range Interpretation Comments Red Blood Count (test code = 789-8) 4.51 4.3-5.7 [facility]woodHem[facility]2018[facility] 06:46:00* Test Item Value Reference Range Interpretation Comments Hemoglobin (test code = 52843-9) 12.5 14.0-18.0 L [facility]woodHematocrit2018-05-02 06:46:00* Test Item Value Reference Range Interpretation Comments Hematocrit (test code = 4544-3) 38.4 38.2-49.6 [facility]woodMean Corpuscular Rcbouk5087-53-80 06:46:00* Test Item Value Reference Range Interpretation Comments Mean Corpuscular Volume (test code = 787-2) 85.1 81-99 [facility]woodMean Corpuscular Dxylhaygxc6782-11-81 06:46:00* Test Item Value Reference Range Interpretation Comments Mean Corpuscular Hemoglobin (test code = 785-6) 27.7 28-32 L [facility]woodMean Corpuscular Hemoglobin Concent 2017-07-09 06:46:00* Test Item Value Reference Range Interpretation Comments Mean Corpuscular Hemoglobin Concent (test code = 786-4) 32.6 31-35 [facility] KingwoodRed Cell Distribution Vcpvw6668-23-49 06:46:00* Test Item Value Reference Range Interpretation Comments Red Cell Distribution Width (test code = 43006-9) 15.0 11.7 -14.4 H [facility] KingwoodPlatelet Evscp4662-05-84 06:46:00* Test Item Value Reference Range Interpretation Comments Platelet Count (test code = 777-3) 192 140-360 [facility]woodNeutrophils (%) (Auto)2017-07-09 06:46:00 * Test Item Value Reference Range Interpretation Comments Neutrophils (%) (Auto) (test code = 75692-9) 73.5 38.7-80.0 [facility] KingwoodLymphocytes (%) (Auto)2017-07-09 06:46:00 * Test Item Value Reference Range Interpretation Comments Lymphocytes (%) (Auto) (test code = 736-9) 11.8 18.0-39.1 L [facility] KingwoodMonocytes (%) (Auto)2017-07-09 06:46:00* Test Item Value Reference Range Interpretation Comments Monocytes (%) (Auto) (test code = 5905-5) 12.0 4.4-11.3 H [facility]woodEosinophils (%) (Auto)2017-07-09 06:46:00 * Test Item Value Reference Range Interpretation Comments Eosinophils (%) (Auto) (test code = 713-8) 2.3 0.0-6.0 [facility]woodBasophils (%) (Auto)2017-07-09 06:46:00* Test Item Value Reference Range Interpretation Comments Basophils (%) (Auto) (test code = 706-2) 0.1 0.0-1.0 [facility]woodIM GRANULOCYTES %2017-07-09 06:46:00* Test Item Value Reference Range Interpretation Comments IM GRANULOCYTES % (test code = IM GRANULOCYTES %) 0.3 0.0- 1.0 [facility]woodNeutrophils # (Auto)2017-07-09 06:46:00* Test Item Value Reference Range Interpretation Comments Neutrophils # (Auto) (test code = 751-8) 5.5 2.1-6.9 [facility] KingwoodLymphocytes # (Auto)2017-07-09 06:46:00* Test Item Value Reference Range Interpretation Comments Lymphocytes # (Auto) (test code = 30241-5) 0.9 1.0-3.2 L [facility]woodMonocytes # (Auto)2017-07-09 06:46:00* Test Item Value Reference Range Interpretation Comments Monocytes # (Auto) (test code = 742-7) 0.9 0.2-0.8 H [facility]woodEosinophils # (Auto)2017-07-09 06:46:00* Test Item Value Reference Range Interpretation Comments Eosinophils # (Auto) (test code = 711-2) 0.2 0.0-0.4 [facility] KingwoodBasophils # (Auto)2017-07-09 06:46:00* Test Item Value Reference Range Interpretation Comments Basophils # (Auto) (test code = 704-7) 0.0 0.0-0.1 [facility] KingwoodAbsolute Immature Granulocyte (auto 2017-07-09 06:46:00* Test Item Value Reference Range Interpretation Comments Absolute Immature Granulocyte (auto (chel t code = Absolute Immature Granulocyte (auto) 0.02 0-0.1 [facility] KingwoodProthrombin Wcyj1565-77-08 06:58:00* Test Item Value Reference Range Interpretation Comments Prothrombin Time (test code = 5902-2) 13.1 11.9-14.5 [facility] KingwoodProthromb Time International Ratio 2017-07-08 06:58:00* Test Item Value Reference Range Interpretation Comments Prothromb Time International Ratio (test code = 6301-6) 1.07 Oral Anticoagulant Therapy INR Values:1. Low Intensity Therapy 1.5 - 2.02 . Moderate Intensity Therapy 2.0 - 3.03. High Intensity Therapy(1) 2.5 - 3. 54. High Intensity Therapy(2) 3.0 - 4.05. Panic Value INR > 5.0 [facility] KingwoodActivated Partial Thromboplast Time 2017-07-08 06:58:00* Test Item Value Reference Range Interpretation Comments Activated Partial Thromboplast Time (test code = 14549-6) 31.3 23.8-35.5 [facility] KingwoodAmylase Knngp5088-14-49 06:57:00* Test Item Value Reference Range Interpretation Comments Amylase Level (test code = 1798-8) 29 25-125 [facility] KingwoodLipase2018-05-01 06:57:00* Test Item Value Reference Range Interpretation Comments Lipase (test code = 3040-3) 72 8-78 [facility] KingwoodUrine LUI3696-87-25 05:43:00* Test Item Value Reference Range Interpretation Comments Urine WBC (test code = 5821-4) 6-10 0-5 H [facility] KingwoodUrine XBP6067-39-28 05:43:00* Test Item Value Reference Range Interpretation Comments Urine RBC (test code = 30086-8) 21-50 0-5 H [facility] KingwoodUrine Xrlwtoek6169-67-15 05:43:00* Test Item Value Reference Range Interpretation Comments Urine Bacteria (test code = 44634-5) RARE NONE [facility]woodUrine Epithelial Rfhss5180-92-92 05:43:00 * Test Item Value Reference Range Interpretation Comments Urine Epithelial Cells (test code = 93513-8) RARE NONE [facility] KingwoodUrine Nfmfk7828-92-92 05:24:00* Test Item Value Reference Range Interpretation Comments Urine Color (test code = 5778-6) YELLOW YELLOW [facility]woodUrine Zpziwpl6062-00-93 05:24:00* Test Item Value Reference Range Interpretation Comments Urine Clarity (test code = 84584-0) CLEAR CLEAR [facility] KingwoodUrine Specific Ixuatzn2627-68-28 05:24:00 * Test Item Value Reference Range Interpretation Comments Urine Specific [place] (test code = 5811-5) 1.025 1.010-1.02 5 [facility] KingwoodUrine mM6121-79-99 05:24:00* Test Item Value Reference Range Interpretation Comments Urine pH (test code = 92632-7) 5 5-7 [facility]woodU[facility] Leukocyte Qnnuxmgk7630-76-78 05:24:00* Test Item Value Reference Range Interpretation Comments Urine Leukocyte Esterase (test code = 5799-2) NEGATIVE NEGATIVE [facility] KingwoodUrine Olwugiq0777-87-67 05:24:00* Test Item Value Reference Range Interpretation Comments Urine Nitrite (test code = 06941-9) NEGATIVE NEGATIVE [facility] KingwoodUrine Upanmdx5067-21-85 05:24:00* Test Item Value Reference Range Interpretation Comments Urine Protein (test code = 5804-0) 1+ NEGATIVE H [facility] Glucose (UA)2017-07-08 05:24:00* Test Item Value Reference Range Interpretation Comments Urine Glucose (UA) (test code = 2349-9) 2+ NEGATIVE H [facility] Uodliph1214-63-04 05:24:00* Test Item Value Reference Range Interpretation Comments Urine Ketones (test code = 52766-9) NEGATIVE NEGATIVE [facility] Hllqpcemjpyf1558-38-47 05:24:00* Test Item Value Reference Range Interpretation Comments Urine Urobilinogen (test code = 78573-0) 0.2 0.2-1 [facility] Ifiewsiyj6645-70-40 05:24:00* Test Item Value Reference Range Interpretation Comments Urine Bilirubin (test code = 1978-6) NEGATIVE NEGATIVE [facility] Cbjsb3729-31-82 05:24:00* Test Item Value Reference Range Interpretation Comments Urine Blood (test code = 15320-3) 2+ NEGATIVE H [facility]woodURINALYSIS2013-10-02 18:30:00>182[facility] QvjcqrcRJCOHNYMCC4672-52-81 18:30:00Occasional /LPF *NA*(12/09/2012 13:30:00) [facility] WgpxunwFKTXXRRAWK5917-59-16 18:30:009[facility]IS 2012-12-09 18:30:00Clear (12/09/2012 13:30:00) [facility] HermannURINALYSIS 2012-12-09 18:30:00Negative mg/dL (12/09/2012 13:30:00) [facility] QXESNJKYCK6403-50-70 18:30:005.0[facility] DhwtzkyKPLCFNUSID9792-32-06 18:30:00 1.015[facility] GawgyrfTTPREYGTVS8925-02-72 18:30:00Large *ABN*(12/09/2012 13:30:00) [facility] EgvgkjvIQVFPFVUIH3634-41-50 18:30:002.0[facility] BNDFOOFUDP4024-39-68 18:30:00Positive *ABN*(12/09/2012 13:30:00) [facility] JfcevegYSIBIPLJIR8226-12-32 18:30:00Negative (12/09/2012 13:30:00) [facility] UzdoamkYVWCRALSJV5756-76-48 18:30:00Negative mg/dL *NA*(12/09/2012 13:30:00) [facility] RqnkiauHQLWQYPHAR7370-50-16 18:30:00Negative mg/dL *NA*(12/09/2012 13:30:00) [facility] JrslqmgUXAQDMHQJD8307-30-49 18:30:00Negative *NA*(12/09/2012 13:30:00) [facility] HybswhiMDZXXMYRX6768-46-39 15:20:0078[facility] PGVVMDLUW5873-61-42 15:20:0029[facility] BghsyhwMUZXRINEB7909-46-47 15:20:001.1 [facility] IcnobokOCWCCKIMB6014-53-87 15:20:99516Ajzfkufy HermannCHEMISTRY 2012-12-04 15:20:0015[facility] IjhuxrqJCWWVSQYU3082-60-48 15:20:008.7[facility] HyyunwwSOQCDITKT1086-15-06 15:20:003.9[facility] XhuhbfeMWKLNMHUZ3424-69-89 15:20:81642Lhcxzxwo OhxggfnZYONAEBBS5989-10-40 15:20:49612Uoiaqrdw [facility] OBIYCIBOI3215-45-17 15:20:0011.9[facility] DdkcdhuMYJMFMDAMB8795-53-40 15:20:00 11.7[facility] YnyudbmYNQIIVLMLY6932-09-74 15:20:0083.6[facility] HermannHEMATOLOGY 2012-12-04 15:20:0036.1[facility] ZgirfyfOLMIMKUEMJ4954-05-67 15:20:0014.2[facility] XdddzhfTCMIPNIYHO5084-88-04 15:20:87216Zhmmxwco AinpfzvZPPKUVJAAW4382-83-74 15:20:008.7[facility] NqfopccDXEWBJRSYO6649-25-30 15:20:004.32[facility] NOCJNDZPJD7794-82-86 15:20:0032.3[facility] KzqldncVFFIWCDJZD0979-95-34 15:20:00* Test Item Value Reference Range Interpretation Comments MCH (test code = MCH) 27.0 pg 27.0-31.0 N [facility] XubtkouMLANCOIJYB3825-82-44 15:20:007.0[facility] HermannHEMATOLOGY 2012-12-04 15:20:005.0[facility] WwyhwjlGHKJHWJHCC0806-51-49 15:20:000.2[facility] PnqilpyOUTGRZTDVG7076-72-31 15:20:000.1[facility] AptbnyzTNVYRXRWKS0753-54-29 15:20:000.6[facility] NfjyzxyTMATOWEDKN5254-08-85 15:20:001.2[facility] ITTATDWQOY8440-62-93 15:20:0072.1[facility] BgzlnuoSMDDMHEADR7474-15-17 15:20:00 2.1[facility] PmmadiiAXOEFZIOOY8623-74-23 15:20:008.7[facility] HermannHEMATOLOGY 2012-12-04 15:20:0016.9[facility] DjgzrqgMDFERSYCEA2068-91-25 15:20:000.0[facility] WembggyWLNMIAKDGQ5614-85-22 15:20:00* Test Item Value Reference Range Interpretation Comments PTT (test code = PTT) 30.0 s 22.9-35.8 N [facility] WycsllcNTXPLJPEAQ7893-40-79 15:20:00* Test Item Value Reference Range Interpretation Comments PT (test code = PT) 12.8 s 12.0-14.7 N [facility] NmbimsoTUKUJCTYYR3094-16-64 15:20:000.97[facility]annABDOMEN-1VIEW (KUB) [place] [address] Patient Name: ZAYNAB FLORES MR #: [id number] : 1965 Age/Sex: 52/M Req #: [id number] [facility] Physician: GISELA CARABALLO MD Ordered by: AKOSUA LAMAR MD Report #: [id number] Location: [facility] Room/Bed: [place] [address] Procedure: [id number] DX/A BDOMEN-1VIEW (KUB) Exam Date: 07/09/17 Exam Time: 16 50 REPORT STATUS: Signed PROCEDURE: X-RAY ABDOMEN - KUB COMPARI SON: [facility], CT, CT ABDOMEN AND PELVIS [...] COPY TO: AKOSUA LAMAR MD CT ABDOMEN/PELVIS [place] [address] Patient Name: ZAYNAB FLORES MR #: [id number] : 1965 Age/Sex: 52/M Req #: [id number] [facility] Physician: Ordered by: TRE SALAS MD Report #: [id number] Location: ER Room/Bed: Procedure: [id number] CT/CT ABDOMEN/PELVIS WO Ex am Date: Exam [...]
[2019-12-06 12:44] LABS: BILIRUBIN,URINE NEGATIVE (NEGATIVE); CLARITY,URINE CLOUDY (CLEAR); COLOR,URINE YELLOW (YELLOW); KETONES,URINE NEGATIVE (NEGATIVE); LEUKOCYTE ESTERASE ,URINE MODERATE (NEGATIVE); NITRITE,URINE NEGATIVE (NEGATIVE); PROTEIN,URINE DIPSTICK >=300 (NEGATIVE); URINE UROBILINOGEN 0.2 mg/dL (0.2 - 1)
[2019-12-06 12:54] LABS: BACTERIA,URINE FEW /HPF; EPITHELIAL CELLS,URINE FEW /LPF; RBC,URINE >50 /HPF (0-5); WBC,URINE (MAN) >50 /HPF (0-5)
[2019-12-06 13:56] LABS: BASOPHILS % 0.3 % (0.0-1.0); EOSINOPHILS # (AUTO) 0.3 (0.0-0.4); EOSINOPHILS % 3.6 % (0.0-6.0); HEMATOCRIT 36.7 % (38.2-49.6); HEMOGLOBIN 11.3 g/dL (14.0-18.0); LYMPHOCYTES # (AUTO) 2.2 (1.0-3.2); MEAN CORPUSCULAR HEMOGLOBIN 25.7 pg (28-32); MEAN CORPUSCULAR HGB CONC 30.8 g/dL (31-35); MEAN CORPUSCULAR VOLUME 83.4 fL (81-99); MONOCYTES # (AUTO) 0.8 (0.2-0.8); MONOCYTES % 9.8 % (4.4-11.3); NEUTROPHILS # (AUTO) 4.6 (2.1-6.9); NEUTROPHILS % 57.9 % (38.7-80.0); PLATELET COUNT 300 x10e3/uL (140-360); RED CELL DISTRIBUTION WIDTH 15.9 % (11.7-14.4)
[2019-12-06 14:16] LABS: ALBUMIN 4.5 g/dL (3.5-5.0); ALBUMIN/GLOBULIN RATIO 1.5 (0.8-2.0); ANION GAP 15.5 mmol/L (8-16); CALCIUM 9.3 mg/dL (8.4-10.2); CREATININE, SERUM 1.73 mg/dL (0.72-1.25); POTASSIUM 3.5 mmol/L (3.5-5.1)
== END 2019-12-06 15:10 | disposition home or self-care (01) ==
LOC: ER 12:10
DX: N39.0 Urinary tract infection, site not specified (principal); R31.9 Hematuria, unspecified; R30.0 Dysuria; I10 Essential (primary) hypertension; E11.65 Type 2 diabetes mellitus with hyperglycemia; E78.5 Hyperlipidemia, unspecified; K21.9 Gastro-esophageal reflux disease without esophagitis
CPT/HCPCS: 36415; 80053; 81001; 85025; 87086; 99284

== ENCOUNTER → 2019-12-15 | Day surgery (SDC) | payer BC, OTHER ==
[~2019-12-15] MED LIST changes: +DEXAMETHASONE SOD PHOS INJ 4 MG/ML VIAL ONE; +FENTANYL CITRATE/PF 100MCG/2 ML INJ ONE; +FUROSEMIDE40 MG PO; +GLIPIZIDE5 MG PO; -GLUCOSAMINE &1 EAC1; +GLUCOSAMINE &1 EAC1 PO; +IOPAMIDOL 300MG/ML 50ML INFUS..BTL IV ONE; +LEVOFLOXACIN 500MG/D5W 100ML 100 ML IV ONE; +LIDOCAINE HCL 2% LOCAL INJ 5 ML SDV VIAL INJ ONE; +MIDAZOLAM HCL 2 MG/2 ML VIAL ONE; +NOVOLOG100 UNIT/1 SC; +ONDANSETRON HCL INJ 2MG/ML 2ML 2 MG/ML VIAL ONE; +PROPOFOL IV EMULSION 10 MG/ML 20 ML VIAL ONE; +SCOPOLAMINE 1.5 MG PATCH ONE; +SEVOFLURANE INHAL SOLN 250 ML PEN BTL ONE; -SUPER B COMPLE150 MG; +SUPER B COMPLE150 MG PO
[2019-12-15 08:50] VITALS: BP 115/59
--- NOTE | 2019-12-15 08:53 | Diagnostic Imaging Report ---
Abdomen one view, AP INDICATION: ^PRE-OP #5 ^[id number] ^[id number] Comparison: CT dated 11/04/2019. Ultrasound dated 11/08/2019. Discussion: Calculi are identified inferior pole the bilateral kidneys. The right measuring up to 6 mm on the left measuring up to 5 mm. Postsurgical changes from cholecystectomy are noted. No calculi identified in the expected trajectory of the ureters. Soft tissues are unremarkable. Negative for acute osseous abnormality. Focal advanced degenerative changes of the lower lumbar spine are noted. IMPRESSION: Bilateral inferior pole renal calculi. Signed by: Juan Luis Gilliam MD on 12/15/2019 8:50 AM
--- NOTE | 2019-12-18 10:00 | Operative Report ---
DATE OF PROCEDURE: 12/15/2019 SURGEON: Louis Quigley MD PREOPERATIVE DIAGNOSES: Right kidney stone. POSTOPERATIVE DIAGNOSES: Right kidney stone. PROCEDURES: 1. Staged right-sided shock wave lithotripsy. 2. Supervision of fluoroscopy. ANESTHESIA: General. ESTIMATED BLOOD LOSS: Minimal. COMPLICATIONS: None. INDICATIONS FOR PROCEDURE: Mr. Salmeron is a very pleasant 54-year-old male with a history of 6 mm symptomatic kidney stone. He and I had a long discussion about alternatives, risks, and benefits of doing nothing, shockwave lithotripsy, ureteroscopy, percutaneous surgery or open surgery. He voiced understanding of the options, alternatives, risks, and benefits, and he elected to proceed. PROCEDURE IN DETAIL: After informed consent was obtained, the patient was taken to the operative suite. He was placed supine on the operative table. He underwent general anesthesia by the Anesthesia Service and placed in dorsal. Stone was localized in the X, Y, and Z planes. Treatment was performed per the treatment report. The patient tolerated procedure well and was transferred to recovery room in excellent condition. No untoward effects noted. Supervision of fluoroscopy: I spent entire procedure and supervised fluoroscopy. There was no radiologist present. Dosage per treatment report. Louis Quigley MD ES/MODL /[id number]
== END | disposition home or self-care (01) ==
LOC: OR 05:29
PROVIDERS: ATTEND Urology
DX: N20.0 Calculus of kidney (principal); I10 Essential (primary) hypertension; E11.9 Type 2 diabetes mellitus without complications; K21.9 Gastro-esophageal reflux disease without esophagitis; Z88.0 Allergy status to penicillin; Z01.810 Encounter for preprocedural cardiovascular examination; Z01.812 Encounter for preprocedural laboratory examination; Z11.59 Encounter for screening for other viral diseases; Z79.84 Long term (current) use of oral hypoglycemic drugs; Z79.4 Long term (current) use of insulin; Z87.01 Personal history of pneumonia (recurrent); Z87.440 Personal history of urinary (tract) infections
CPT/HCPCS: 36415; 50590; 74018; 82948; 93005; J1100; J1956; J2001; J2250; J2405; J2704; J3010; U0002

== ENCOUNTER → 2020-02-21 | Outpatient (CLI) | payer BC ==
[~2020-02-21] VITALS: Ht 177.8 cm; Wt 163.7 kg
[~2020-02-21] MED LIST changes: +AMLODIPINE-VAL1 EAC3 PO; +CHONDROITIN PO; -DEXAMETHASONE SOD PHOS INJ 4 MG/ML VIAL ONE; -FENTANYL CITRATE/PF 100MCG/2 ML INJ ONE; +FINASTERIDE5 MG PO; -IOPAMIDOL 300MG/ML 50ML INFUS..BTL IV ONE; -LEVOFLOXACIN 500MG/D5W 100ML 100 ML IV ONE; -LIDOCAINE HCL 2% LOCAL INJ 5 ML SDV VIAL INJ ONE; -MIDAZOLAM HCL 2 MG/2 ML VIAL ONE; -ONDANSETRON HCL INJ 2MG/ML 2ML 2 MG/ML VIAL ONE; -PROPOFOL IV EMULSION 10 MG/ML 20 ML VIAL ONE; -SCOPOLAMINE 1.5 MG PATCH ONE; -SEVOFLURANE INHAL SOLN 250 ML PEN BTL ONE
[2020-02-21 12:45] LABS: BASOPHILS % 0.3 % (0.0-1.0); EOSINOPHILS # (AUTO) 0.4 (0.0-0.4); EOSINOPHILS % 3.8 % (0.0-6.0); HEMATOCRIT 38.9 % (38.2-49.6); LYMPHOCYTES # (AUTO) 2.1 (1.0-3.2); LYMPHOCYTES % 21.7 % (18.0-39.1); MEAN CORPUSCULAR HEMOGLOBIN 26.1 pg (28-32); MEAN CORPUSCULAR HGB CONC 30.8 g/dL (31-35); MEAN CORPUSCULAR VOLUME 84.6 fL (81-99); MONOCYTES # (AUTO) 1.1 (0.2-0.8); MONOCYTES % 11.5 % (4.4-11.3); NEUTROPHILS % 62.3 % (38.7-80.0); PLATELET COUNT 271 x10e3/uL (140-360); RED CELL DISTRIBUTION WIDTH 14.2 % (11.7-14.4)
[2020-02-21 12:55] LABS: INR 0.96; PROTHROMBIN TIME 13.3 seconds (11.9-14.5)
[2020-02-21 13:02] LABS: ALBUMIN 4.1 g/dL (3.5-5.0); ALBUMIN/GLOBULIN RATIO 1.1 (0.8-2.0); CALCIUM 9.7 mg/dL (8.4-10.2); CREATININE, SERUM 1.5 mg/dL (0.72-1.25)
== END ==
LOC: DX 16:57 → EDSTATUS 02-24 14:00
PROVIDERS: ATTEND Internal Medicine Cardiovascular Disease
DX: Z01.812 Encounter for preprocedural laboratory examination (principal); Z20.828 Contact with and (suspected) exposure to other viral communicable diseases; Z01.818 Encounter for other preprocedural examination; I87.1 Compression of vein
CPT/HCPCS: 36415; 80053; 85025; 85610; U0002

== ENCOUNTER → 2020-06-10 | Day surgery (SDC) | payer BC ==
[~2020-06-10] MED LIST changes: +CRESTOR10 MG PO; +OXYBUTYNIN CHLOR5 MG PO
[2020-06-10 11:27] LABS: WBC,FECAL (FECAL LACTOFERRIN) NEGATIVE (NEGATIVE)
[2020-06-10 11:30] VITALS: BP 113/87
[2020-06-10 13:53] LABS: C DIFFICILE TOXIN A&B AMP PROB **POSITIVE** (NEGATIVE)
== END | disposition home or self-care (01) ==
LOC: OR 07:56
PROVIDERS: ATTEND Internal Medicine Gastroenterology
DX: D64.9 Anemia, unspecified (principal); K63.5 Polyp of colon; K31.7 Polyp of stomach and duodenum; K29.50 Unspecified chronic gastritis without bleeding; K29.60 Other gastritis without bleeding; K21.9 Gastro-esophageal reflux disease without esophagitis; K31.89 Other diseases of stomach and duodenum; K62.89 Other specified diseases of anus and rectum; K64.8 Other hemorrhoids; G47.33 Obstructive sleep apnea (adult) (pediatric); I10 Essential (primary) hypertension; E11.9 Type 2 diabetes mellitus without complications; N20.0 Calculus of kidney; N40.0 Benign prostatic hyperplasia without lower urinary tract symptoms; E66.01 Morbid (severe) obesity due to excess calories; Z01.810 Encounter for preprocedural cardiovascular examination; Z01.812 Encounter for preprocedural laboratory examination; Z20.822 Contact with and (suspected) exposure to COVID-19; Z79.4 Long term (current) use of insulin; Z68.43 Body mass index [BMI] 50.0-59.9, adult
CPT/HCPCS: 36415; 43239; 45380; 45384; 82948; 83630; 83993; 87045; 87177; 87328; 87493; 93005; U0002; 45378